=== PATIENT | male | born 1955 | race Caucasian/White ===

== ENCOUNTER 2019-09-16 20:45 | Inpatient (IN) | payer MEDICARE, BC ==
[2019-09-16] MEDS ORDERED: HYDROmorphone 0.5 MG/0.5 ML Syringe IVPUSH ONE (21:02)
[2019-09-16] MEDS ORDERED: Ondansetron 4 MG/2 ML SDV IVPUSH ONE (21:02)
--- NOTE | 2019-09-16 21:05 | EDM.PDOC ---
ED HPI GENERAL MEDICAL PROBLEM - General Chief Complaint: Chest Pain Stated Complaint: [facility] Time Seen by Provider: 09/16/19 21:02 Source of Information: Reports: Patient History Limitations: Reports: Other (. Impaired speech due to Parkinson's disease.) - History of Present Illness INITIAL COMMENTS - FREE TEXT/NARRATIVE: 64-year-old male presents to the ED after tripping and falling at home. Patient has Parkinson's disease and usually wears braces on both of his lower extremities to prevent falls but he was not wearing them this evening. He states he got tripped up and fell landing on a hard wooden chair injuring his left flank and lower ribs. A walker but did not have his leg braces on. Injury occurred about 2 hours ago. He states he did go all the way to the floor but was able to get himself up with time. Currently pain is 9 out of 10. He did summon the ambulance which came and picked him up and brought him to the hospital. Patient denies hitting his head. He has chronic cervical neck pain. Is not feels neck pain is any worse than normal. He also appreciates some left upper quadrant abdominal pain. Splinting respirations and shortness of breath. 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 CODE STATUS is listed as DO NOT RESUSCITATE. Onset: Today, Sudden Onset Date: 09/16/19 Onset Time: 19:00 Duration: Hour(s): (All about 2 hours ago.), Getting Worse Location: Reports: Chest (Pain left flank lower chest wall.), Abdomen (Left upper quadrant of the abdomen hurting as well.), Back (Injury to the posterior lateral thorax along 11th and 12th ribs and left flank.). Denies: Upper Extremity, Left, Upper Extremity, Right, Lower Extremity, Left, Lower Extremity, Right Quality: Reports: Ache, Sharp, Stabbing Severity: Severe (Out of 10.) Improves with: Reports: None Worsens with: Reports: Movement (But deep breathing makes it worse.) Context: Reports: Trauma (Fall at home injuring left flank lower ribs on a wooden chair from the fall). Denies: Activity, Exercise, Lifting, Sick Contact Associated Symptoms: Reports: Chest Pain, Malaise, Shortness of Breath. Denies: Confusion, Cough (Posterior lateral chest pain), cough w sputum, Diaphoresis, Fever/Chills, Headaches, Loss of Appetite, Nausea/Vomiting, Rash (Neck), Seizure, Syncope Treatments BED LASTER: Reports: Other (see below) (None.) Left Chest Pain Score (Numeric/FACES): 8 - Related Data Allergies Allergy/AdvReac Type Severity Reaction Status Date / Time No Known Allergies Allergy Verified 09/16/19 21:42 Home Meds: Home Meds Acetaminophen [Tylenol Arthritis Pain] 650 mg PO Q6H PRN 09/16/19 [History] Baclofen 10 mg PO QID 09/16/19 [History] Carbidopa/Levodopa [Carbidopa-Levodopa 25-100 Tab] 1 each PO QID 09/16/19 [History] Celecoxib [CeleBREX] 200 mg PO DAILY 09/16/19 [History] Cyclobenzaprine [Flexeril] 5 mg PO TID 09/16/19 [History] Diclofenac Sodium [Voltaren 1% Gel] 2 gm TOP QID 09/16/19 [History] Docusate Sodium/Sennosides [Senna Plus] 1 each PO TID PRN 09/16/19 [History] Escitalopram Oxalate [Lexapro] 20 mg PO BEDTIME 09/16/19 [History] Gabapentin [Neurontin] 200 mg PO TID 09/16/19 [History] HYDROmorphone [Dilaudid] 2 mg PO Q6H PRN 09/16/19 [History] HYDROmorphone [Dilaudid] 2 mg PO TID 09/16/19 [History] LORazepam [Ativan] 0.5 mg PO 1200,1600 09/16/19 [History] LORazepam [Ativan] 0.5 mg PO Q6H PRN 09/16/19 [History] LORazepam [Ativan] 1 mg PO 0800,199909/16/19 [History] Losartan [Cozaar] 50 mg PO DAILY 09/16/19 [History] Magnesium Oxide [Magnesium] 400 mg PO BID 09/16/19 [History] Simvastatin 20 mg PO BEDTIME 09/16/19 [History] Terazosin [Hytrin] 5 mg PO BID 09/16/19 [History] busPIRone HCl [Buspirone HCl] 7.5 mg PO BID 09/16/19 [History] fentaNYL [Duragesic] 75 mcg TD Q72H 09/16/19 [History] traZODone HCl [Trazodone HCl] 100 mg PO BEDTIME 09/16/19 [History] Past Medical History Cardiovascular History: Reports: High Cholesterol, Hypertension Respiratory History: Reports: Other (See Below) (Up apnea syndrome not on CPAP) Gastrointestinal History: Reports: GERD, Hiatal Hernia, Other (See Below) (Dysphagia. 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 previous cervical fusion . Radiculaopathy Lt upepr extremity.), Other (See Below) ( marked difficulty walking. Wears braces to both lower extremities.) Neurological History: Reports: Parkinson's (Parkinson's disease. He has severe flexion contracture of his left upper extremity he hand and wrist. Diagnosis is prgressive supranuclear opthaloplegia with Parkinson`s as a secondary diso rder. He has associated corticobasilar degeneration. Dystonia. Spasticity Lt upper extremity and legs.), Speech Problems ( with dysphagia. restless leg syndrome.), Other (See Below) Psychiatric History: Reports: Anxiety ( severe generalized anxiety disorder.), Other (See Below) (dysphagia. chronic insomnia.) - Past Surgical History Musculoskeletal Surgical History: Reports: Other (See Below) (Cervical spine fusion. Chronic radiculopathy left upper extremity) - History Comment History Comment: Patient has chronic severe generalized pain. He is currently on Dilaudid 2 mg 3 times daily and fentanyl patch. 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 Social & Family History - Living Situation & Occupation Living situation: Reports: Single, Alone Occupation: Disabled Social History Comment: Currently he just was admitted to [facility] today. It is unclear where he came from. They have no significant history on him other than what was provided. ED ROS GENERAL - Review of Systems Review Of Systems: See Below Constitutional: Reports: Malaise, Weakness (Chronic and severe.), Fatigue. Denies: Fever, Chills, Decreased Appetite HEENT: Reports: Glasses Respiratory: Reports: Shortness of Breath. Denies: Wheezing, Pleuritic Chest Pain, Cough, Sputum Cardiovascular: Reports: Chest Pain (Post injury today injury to the left posterior lateral chest wall). Denies: Claudication, Dyspnea on Exertion, Edema, Lightheadedness, Orthopnea Endocrine: Reports: No Symptoms GI/Abdominal: Reports: Abdominal Pain (He is aware of left upper quadrant abdominal pain flank pain since fall.), Constipation, Other (Known hiatal hernia.). Denies: Decreased Appetite, Distension, Flatus, Hematemesis, Hematochezia : Reports: Frequency, Other (Teary at x2 sometimes 3.) Musculoskeletal: Reports: Neck Pain, Shoulder Pain (Hand pain older pain from today's fall.), Back Pain (Chronic cervical neck pain), Hand Pain, Other (Walks with the aid of a walker.) Skin: Reports: Bruising (Onset bruising) Neurological: Reports: Difficulty Walking (Difficulty walking. Usually wears bilateral lower extremity braces which he is usually able to place himself.) Psychiatric: Reports: No Symptoms Hematologic/Lymphatic: Reports: No Symptoms Immunologic: Reports: No Symptoms ED EXAM, GENERAL - Physical Exam Exam: See Below Exam Limited By: No Limitations General Appearance: Alert, WD/WN, Moderate Distress, Other (Peers to be in a good deal of pain. Temperature is 36.6. Heart rate was 75 respiratory is 17-20 with sats of 93% on room air. He was 130/77.) Eye Exam: Bilateral Eye: Normal Inspection, Periorbital Changes Nose: Normal Inspection Throat/Mouth: Other Head: Atraumatic (Tongue and mouth are mildly dry.), Normocephalic, Other (No overt sign of head or facial trauma.) Neck: Normal Inspection, Limited Range of Motion (Patient has loss of 10 degrees lateral flexion as well as), Tender Lateral (There are bilateral cervical spine with no step-off deformities in the midline.), Other (No obvious injuries to the cervical spine. Patient states his pain is chronic in his neck from arthritis.). No: Lymphadenopathy (L) ( 5 degrees extension 5 degrees flexion.), Lymphadenopathy (R) Respiratory/Chest: Lungs Clear, Respiratory Distress (Mild tachypnea at rest), Splinting (Ending respirations.), Other (Patient has a linear bruise along the posterior lateral left ribs along primarily the 12th rib and portions of the 11th rib. This area is very tender to touch. Subcutaneous emphysema but hematoma is palpable. Patient has a hematoma on his right mid back measuring approximately 7 cm in diameter that he was not aware of. Peers to be of new onset.) Cardiovascular: Normal Peripheral Pulses, Regular Rate, Rhythm, No Edema, No Gallop, No Murmur, No Rub Peripheral Pulses: 2+: Posterior Tibial (L), Posterior Tibial (R), Dorsalis Pedis (L), Dorsalis Pedis (R), 3+: Carotid (L), Carotid (R) GI/Abdominal: Distended (Diffusely tympanitic to percussion.), Guarding, Tender (Tender to touch left upper quadrant of the abdomen.), Abnormal Bowel Sounds (Sounds are decreased in frequency.). No: Normal Bowel Sounds, Soft, Non- Tender, Rigid, Rebound (Upper quadrant of the abdomen) Back Exam: CVA Tenderness (L) (Marked left CVA tenderness), CVA Tenderness (R) (mild.), Other (He has a fentanyl patch left upper back.) Extremities: Other (She has flexion contracture of his left hand and wrist. This is chronic. No obvious injuries to his elbow or shoulder humerus. He reports some tenderness on palpation of his shoulder but clinically no fracture is evident. Collar bones are intact. No apparent injuries to his lower extremities appreciated. He has very limited internal and external rotation of both hips.) Neurological: Alert, Oriented, CN II-XII Intact, Normal Cognition Psychiatric: Normal Affect, Normal Mood, Other Skin Exam: Warm (And is a good deal of pain.), Dry, Intact, Normal Color, No Rash Course - Vital Signs Last Recorded V/S: Last Vital Signs Temp 36.6 C 09/16/19 20:50 Pulse 75 09/16/19 20:50 Resp 17 09/16/19 20:50 BP 130/77 09/16/19 20:50 Pulse Ox 93 L 09/16/19 20:50 - Orders/Labs/Meds Orders: Active Orders 24 hr Category Date Time Status Oxygen Therapy [RC] ASDIRECTED Care 09/16/19 22:48 Active Chest Abdomen Pelvis w Cont [CT] Stat Exams 09/16/19 21:03 Taken PATIENT RETYPE [BBK] Routine Lab 09/16/19 21:10 Received Dextrose 5%-0.9% NaCl [Dextrose 5%-Normal Saline] 1,000 Med 09/16/19 21:15 Active ml IV ASDIRECTED Medication Orders Dextrose/Sodium Chloride (Dextrose 5%-Normal Saline) 1,000 mls @ 150 mls/hr IV ASDIRECTED JASPER Last Admin: 09/16/19 21:19 Dose: 150 mls/hr Documented by: ALYSE Labs: Laboratory Tests 09/16/19 09/16/19 09/16/19 Range/Units 17:00 21:10 21:10 WBC 13.18 H (4.23-9.07) K/mm3 RBC 4.75 (4.63-6.08) M/mm3 Hgb 13.9 (13.7-17.5) gm/dl Hct 42.0 (40.1-51.0) % MCV 88.4 (79.0-92.2) fl MCH 29.3 (25.7-32.2) pg MCHC 33.1 (32.2-35.5) g/dl RDW Std Deviation 39.7 (35.1-43.9) fL Plt Count 166 (163-337) K/mm3 MPV 11.1 (9.4-12.3) fl Neut % (Auto) 89.0 H (34.0-67.9) % Lymph % (Auto) 5.5 L (21.8-53.1) % [place] % (Auto) 4.9 L (5.3-12.2) % Eos % (Auto) 0.1 L (0.8-7.0) Baso % (Auto) 0.2 (0.1-1.2) % Neut # (Auto) 11.72 H (1.78-5.38) K/mm3 Lymph # (Auto) 0.73 L (1.32-3.57) K/mm3 [place] # (Auto) 0.65 (0.30-0.82) K/mm3 Eos # (Auto) 0.01 L (0.04-0.54) K/mm3 Baso # (Auto) 0.03 (0.01-0.08) K/mm3 Manual Slide Review Abnormal smear Sodium 138 (136-145) mEq/L Potassium 3.7 (3.5-5.1) mEq/L Chloride 101 (98-107) mEq/L Carbon Dioxide 27 (21-32) mEq/L Anion Gap 13.7 (5-15) BUN 20 H (7-18) mg/dL Creatinine 0.8 (0.7-1.3) mg/dL Est Cr Clr Drug Dosing TNP Estimated GFR (MDRD) > 60 (>60) mL/min BUN/Creatinine Ratio 25.0 H (14-18) Glucose 117 H (80-115) mg/dL Calcium 9.0 (8.5-10.1) mg/dL Total Bilirubin 0.8 (0.2-1.0) mg/dL AST 27 (15-37) U/L ALT 7 L (16-63) U/L Alkaline Phosphatase 59 (46-116) U/L Total Protein 7.3 (6.4-8.2) g/dl Albumin 3.9 (3.4-5.0) g/dl Globulin 3.4 gm/dL Albumin/Globulin Ratio 1.2 (1-2) Lipase 102 (73-393) U/L Prostate Specific Ag (0.1-4.0) ng/mL COVID-19 ([facility]) (NEGATIVE) Blood Type Gel Antibody Screen 09/16/19 09/16/19 09/16/19 Range/Units 21:10 21:10 22:55 WBC (4.23-9.07) K/mm3 RBC (4.63-6.08) M/mm3 Hgb (13.7-17.5) gm/dl Hct (40.1-51.0) % MCV (79.0-92.2) fl MCH (25.7-32.2) pg MCHC (32.2-35.5) g/dl RDW Std Deviation (35.1-43.9) fL Plt Count (163-337) K/mm3 MPV (9.4-12.3) fl Neut % (Auto) (34.0-67.9) % Lymph % (Auto) (21.8-53.1) % [place] % (Auto) (5.3-12.2) % Eos % (Auto) (0.8-7.0) Baso % (Auto) (0.1-1.2) % Neut # (Auto) (1.78-5.38) K/mm3 Lymph # (Auto) (1.32-3.57) K/mm3 [place] # (Auto) (0.30-0.82) K/mm3 Eos # (Auto) (0.04-0.54) K/mm3 Baso # (Auto) (0.01-0.08) K/mm3 Manual Slide Review Sodium (136-145) mEq/L Potassium (3.5-5.1) mEq/L Chloride (98-107) mEq/L Carbon Dioxide (21-32) mEq/L Anion Gap (5-15) BUN (7-18) mg/dL Creatinine (0.7-1.3) mg/dL Est Cr Clr Drug Dosing Estimated GFR (MDRD) (>60) mL/min BUN/Creatinine Ratio (14-18) Glucose (80-115) mg/dL Calcium (8.5-10.1) mg/dL Total Bilirubin (0.2-1.0) mg/dL AST (15-37) U/L ALT (16-63) U/L Alkaline Phosphatase (46-116) U/L Total Protein (6.4-8.2) g/dl Albumin (3.4-5.0) g/dl Globulin gm/dL Albumin/Globulin Ratio (1-2) Lipase (73-393) U/L Prostate Specific Ag 12.4 H (0.1-4.0) ng/mL COVID-19 ([facility]) Negative (NEGATIVE) Blood Type O POSITIVE Gel Antibody Screen Negative Meds: Medications Generic Name Dose Route Start Last Admin Trade Name Freq PRN Reason Stop Dose Admin Dextrose/Sodium Chloride 1,000 mls @ 150 mls/hr 09/16/19 21:15 09/16/19 21:19 Dextrose 5%-Normal Saline IV 150 mls/hr ASDIRECTED JASPER Administration Discontinued Medications Generic Name Dose Route Start Last Admin Trade Name Freq PRN Reason Stop Dose Admin Hydromorphone HCl 0.5 mg 09/16/19 21:02 09/16/19 21:19 Dilaudid IVPUSH 09/16/19 21:03 0.5 mg ONETIME ONE Administration Ondansetron HCl 4 mg 09/16/19 21:02 09/16/19 21:14 Zofran IVPUSH 09/16/19 21:03 4 mg ONETIME ONE Administration - Radiology Interpretation Free Text/Narrative:: 64-year-old male brought to the ED by [place] [facility] after a fall at his home. He lives alone. He has Parkinson's disease and usually wears braces on both of his lower extremities to help his gait. He was walking without them tonight at home with the aid of his walker and got tripped up and fell. He believes he landed on a wooden chair striking him hard in the left posterior lateral back injuring 11th and 12th ribs clinically with a linear hematoma in this area. He has a 7 cm circular hematoma right mid back as well. Patient has decreased bowel sounds in the abdomen and is guarding on palpation of the left upper quadrant of the abdomen. This is concerning for possible injury to underlying kidney and/or spleen. He fell approximately 2 hours prior to coming to the ED. He reports he did get up on his own volition and called the ambulance. Plan. D5 normal saline 150 mils per hour. Routine labs including a type and screen. Serum lipase as well. Urinalysis if 1 can be provided. He will need imaging with CT of his chest abdomen pelvis with IV contrast. Be done to rule out acute abdominal injury from fall by blunt force trauma. Also possible that he is fractured 11th or 12th rib left posterior lateral chest. - Re-Assessments/Exams Free Text/Narrative Re-Assessment/Exam: 09/16/19 21:49 CT of the chest abdomen pelvis has been completed with IV contrast only. CT of the chest reveals mild cardiomegaly. He has a small hemothorax vs atelectasis left lung base.No pneumothorax. He has fractures of Lt ribs posteriorly from the 7th to the 11th ribs. The 10th and 11th ribs are flail segments with fractures posteriorly and laterally. The Lt 7th and 8th ribs show significant displacement. no fractures identified on the right posterior thorax. CT of the abdomen reveals liver to be within normal limits. Gallbladder may have a little bit of sludge in the fundus of the gallbladder but no obvious stones. Pancreas appears normal. Stomach is normal. Spleen reveals an abnormality mid -lateral spleen compatable with a spleenic contusion--grade 1. . No injuries to the kidneys identified. Adrenal glands appear to be normal. Small and large bowel do not show any obvious abnormalities. Prostate is markedly enlarged with numerous surgical clips. It has the consistency of tumor. Bladder is distended. Fractures identified in the pelvis. 09/16/19 21:52 White count is elevated at 13.18. He has a left shift of 89% neutrophils. This is on the auto differential. Hemoglobin is 13.9 with hematocrit of 42.0. Platelet count 166,000. The smear shows a normal right RBC morphology. Platelets are normal and adequate. White blood cell count reveals neutrophilia, lymphopenia no bands appreciated. 09/16/19 22:45 [address] have spoken with Dr Beltre --concrete craftsman surgeon and he will admit the patient to the ICU. Patient is code status DNR. Chemistry reveals a sodium of 138 potassium of 3.7. Chloride is 101 with a bicarb of 27. Anion gap is 13.7. BUN is 20 with a creatinine of 0.8. GFR remains greater than 60. BUN/creatinine ratio is elevated at 25.0 suggesting mild volume depletion. Glucose 117. Calcium is 9.0. Liver function is normal. Total protein 7.3 albumin fraction is 3.9. Lipase is pending. PSA is markedly elevated at 12.4. Has no complaints at this time. CT does reveal that his bladder is fairly full and I see on his notes from history of present illness that he has a history of urinary retention. If he does not void within the next 4 to 6 hours he may require Morris catheterization. I have written bridge orders for him to be admitted to the intensive care unit. His records indicated that his CODE STATUS is DO NOT RESUSCITATE. Apparently he just [facility] to day and therefore they have ethanol operator with him or his multiple medications. He is injuries place him at very high risk of succumbing to his injuries simply because of neuromuscular disease. 09/16/19 23:34: Serum Lipase is 102. Covid 19 negative. Departure - Departure Time of Disposition: 23:45 Disposition: Admitted As Inpatient 68 Reason for Transfer *Q: Other Condition: Serious Clinical Impression: Progressive supranuclear ophthalmoplegia Ribs, multiple fractures Qualifiers: Encounter type: initial encounter Fracture type: closed Laterality: left Qualified Code(s): S22.42XA - Multiple fractures of ribs, left side, initial encounter for closed fracture Fall as cause of accidental injury at home as place of occurrence Qualifiers: Encounter type: initial encounter Qualified Code(s): W19.XXXA - Unspecified fall, initial encounter; Y92.009 - Unspecified place in unspecified non- institutional (private) residence as the place of occurrence of the external cause Sepsis Event Note (ED) - Evaluation Sepsis Screening Result: No Definite Risk - Focused Exam Vital Signs: Vital Signs Temp Pulse Resp BP Pulse Ox 09/16/19 20:50 36.6 C 75 17 130/77 93 L - My Orders Last 24 Hours: My Active Orders 09/16/19 21:03 Chest Abdomen Pelvis w Cont [CT] Stat 09/16/19 21:10 PATIENT RETYPE [BBK] Routine 09/16/19 21:15 Dextrose 5%-0.9% NaCl [Dextrose 5%-Normal Saline] 1,000 ml IV ASDIRECTED 09/16/19 22:48 Oxygen Therapy [RC] ASDIRECTED - Assessment/Plan Last 24 Hours: My Active Orders 09/16/19 21:03 Chest Abdomen Pelvis w Cont [CT] Stat 09/16/19 21:10 PATIENT RETYPE [BBK] Routine 09/16/19 21:15 Dextrose 5%-0.9% NaCl [Dextrose 5%-Normal Saline] 1,000 ml IV ASDIRECTED 09/16/19 22:48 Oxygen Therapy [RC] ASDIRECTED
[2019-09-16] MEDS ORDERED: Dextrose 5%-0.9% NaCl 1,000 ML IV SCH (21:15)
[2019-09-17] MEDS ORDERED: Albuterol 0.083% 2.5 MG/3 ML Neb Soln NEB PRN (00:17)
[2019-09-17] MEDS ORDERED: Ondansetron 4 MG Tab.DIS PO PRN (00:17)
--- NOTE | 2019-09-17 00:27 | PCM.HP.2 ---
H&P History of Present Illness - General Date of Service: 09/17/19 Admit Problem/Dx: Admission Diagnosis/Problem Admission Diagnosis/Problem Rib injury Source of Information: Patient, Provider History Limitations: Reports: Other (pain) - History of Present Illness Initial Comments - Free Text/Narative: patient has severe parkinson's disease and lives at an assisted living. He was walking tonight and fell onto a wooden chair on his left side and immediately had pain on that side. Usually walks with braced in BLE but did not have them on tonight per ED note. Patient did not fall all the way down nor did he hit his head. he was brought into the ED for evaluation. He has a significant history of chronic back pain and is on fentanyl patch, dilaudid, neurontin, baclofen etc. He has numerous other medications for Parkinsons disease. Onset of Symptoms: Reports: Today Duration of Symptoms: Reports: Hour(s):, Constant Location: Reports: Back, Other (left flank) Quality: Reports: Sharp Severity: Severe Improves with: Reports: Immobilization Worsens with: Reports: Breathing, Movement Left Chest Pain Score (Numeric/FACES): 8 - Related Data Allergies/Adverse Reactions: Allergies Allergy/AdvReac Type Severity Reaction Status Date / Time No Known Allergies Allergy Verified 09/16/19 21:42 Home Medications: Home Meds Acetaminophen [Tylenol Arthritis Pain] 650 mg PO Q6H PRN 09/16/19 [History] Baclofen 10 mg PO QID 09/16/19 [History] Carbidopa/Levodopa [Carbidopa-Levodopa 25-100 Tab] 1 each PO QID 09/16/19 [History] Celecoxib [CeleBREX] 200 mg PO DAILY 09/16/19 [History] Cyclobenzaprine [Flexeril] 5 mg PO TID 09/16/19 [History] Diclofenac Sodium [Voltaren 1% Gel] 2 gm TOP QID 09/16/19 [History] Docusate Sodium/Sennosides [Senna Plus] 1 each PO TID PRN 09/16/19 [History] Escitalopram Oxalate [Lexapro] 20 mg PO BEDTIME 09/16/19 [History] Gabapentin [Neurontin] 200 mg PO TID 09/16/19 [History] HYDROmorphone [Dilaudid] 2 mg PO Q6H PRN 09/16/19 [History] HYDROmorphone [Dilaudid] 2 mg PO TID 09/16/19 [History] LORazepam [Ativan] 0.5 mg PO 1200,1600 09/16/19 [History] LORazepam [Ativan] 0.5 mg PO Q6H PRN 09/16/19 [History] LORazepam [Ativan] 1 mg PO 0800,2000 09/16/19 [History] Losartan [Cozaar] 50 mg PO DAILY 09/16/19 [History] Magnesium Oxide [Magnesium] 400 mg PO BID 09/16/19 [History] Simvastatin 20 mg PO BEDTIME 09/16/19 [History] Terazosin [Hytrin] 5 mg PO BID 09/16/19 [History] busPIRone HCl [Buspirone HCl] 7.5 mg PO BID 09/16/19 [History] fentaNYL [Duragesic] 75 mcg TD Q72H 09/16/19 [History] traZODone HCl [Trazodone HCl] 100 mg PO BEDTIME 09/16/19 [History] Past Medical History HEENT History: Reports: Impaired Vision Other HEENT History: Wears glasses Cardiovascular History: Reports: High Cholesterol, Hypertension Respiratory History: Reports: Other (See Below) (Up apnea syndrome not on CPAP) Gastrointestinal History: Reports: GERD, Hiatal Hernia, Other (See Below) (Dysphagia. 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 previous cervical fusion . Radiculaopathy Lt upepr extremity.), Other (See Below) ( marked difficulty walking. Wears braces to both lower extre mities.) Neurological History: Reports: Parkinson's (Parkinson's disease. He has severe flexion contracture of his left upper extremity he hand and wrist. 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 Spasticity Lt upper extremity and legs.), Speech Problems ( with dysphagia. restless leg syndrome.), Other (See Below) Psychiatric History: Reports: Anxiety ( severe generalized anxiety disorder.), Other (See Below) (dysphagia. chronic insomnia.) - Past Surgical History Musculoskeletal Surgical History: Reports: Other (See Below) (Cervical spine fusion. Chronic radiculopathy left upper extremity) - History Comment History Comment: Patient has chronic severe generalized pain. He is currently on Dilaudid 2 mg 3 times daily and fentanyl patch. 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 Social & Family History - Tobacco Use Smoking Status *Q: Unknown Ever Smoked - Living Situation & Occupation Living situation: Reports: Single, Alone Occupation: Disabled H&P Review of Systems - Review of Systems: Review Of Systems: See Below General: Reports: No Symptoms HEENT: Reports: No Symptoms Pulmonary: Reports: No Symptoms Cardiovascular: Reports: No Symptoms Gastrointestinal: Reports: No Symptoms Genitourinary: Reports: No Symptoms Musculoskeletal: Reports: Back Pain, Muscle Stiffness Skin: Reports: Bruising (left lower back, right mid back (old)) Psychiatric: Reports: Anxiety Neurological: Reports: Difficulty Walking, Gait Disturbance Exam - Exam Exam: See Below - Vital Signs Vital Signs: Last Vital Signs Temp 98.4 F 09/16/19 23:40 Pulse 75 09/16/19 20:50 Resp 17 09/16/19 23:40 BP 143/88 H 09/16/19 23:40 Pulse Ox 94 L 09/17/19 00:10 Weight: 80.104 kg - Exam Quality Assessment: Supplemental Oxygen General: Alert, Oriented, Cooperative, Severe Distress Neck: Other (stiff due to parkinsons but no pain) Lungs: Clear to Auscultation, Other (chest wall tender to palpation on the left side, mild bruising on the left lower back) Cardiovascular: Regular Rate, Regular Rhythm, Normal S1, Normal S2 GI/Abdominal Exam: Soft, Non-Tender, No Organomegaly, No Distention (Male) Exam: No Hernia, Normal Inspection Back Exam: Normal Inspection Extremities: Normal Inspection Skin: Warm, Dry, Intact - Patient Data Lab Results Last 24 hrs: Laboratory Results - last 24 hr 09/16/19 09/16/19 09/16/19 Range/Units 17:00 21:10 21:10 WBC 13.18 H (4.23-9.07) K/mm3 RBC 4.75 (4.63-6.08) M/mm3 Hgb 13.9 (13.7-17.5) gm/dl Hct 42.0 (40.1-51.0) % MCV 88.4 (79.0-92.2) fl MCH 29.3 (25.7-32.2) pg MCHC 33.1 (32.2-35.5) g/dl RDW Std Deviation 39.7 (35.1-43.9) fL Plt Count 166 (163-337) K/mm3 MPV 11.1 (9.4-12.3) fl Neut % (Auto) 89.0 H (34.0-67.9) % Lymph % (Auto) 5.5 L (21.8-53.1) % [place] % (Auto) 4.9 L (5.3-12.2) % Eos % (Auto) 0.1 L (0.8-7.0) Baso % (Auto) 0.2 (0.1-1.2) % Neut # (Auto) 11.72 H (1.78-5.38) K/mm3 Lymph # (Auto) 0.73 L (1.32-3.57) K/mm3 [place] # (Auto) 0.65 (0.30-0.82) K/mm3 Eos # (Auto) 0.01 L (0.04-0.54) K/mm3 Baso # (Auto) 0.03 (0.01-0.08) K/mm3 Manual Slide Review Abnormal smear Sodium 138 (136-145) mEq/L Potassium 3.7 (3.5-5.1) mEq/L Chloride 101 (98-107) mEq/L Carbon Dioxide 27 (21-32) mEq/L Anion Gap 13.7 (5-15) BUN 20 H (7-18) mg/dL Creatinine 0.8 (0.7-1.3) mg/dL Est Cr Clr Drug Dosing TNP Estimated GFR (MDRD) > 60 (>60) mL/min BUN/Creatinine Ratio 25.0 H (14-18) Glucose 117 H (80-115) mg/dL Calcium 9.0 (8.5-10.1) mg/dL Total Bilirubin 0.8 (0.2-1.0) mg/dL AST 27 (15-37) U/L ALT 7 L (16-63) U/L Alkaline Phosphatase 59 (46-116) U/L Total Protein 7.3 (6.4-8.2) g/dl Albumin 3.9 (3.4-5.0) g/dl Globulin 3.4 gm/dL Albumin/Globulin Ratio 1.2 (1-2) Lipase 102 (73-393) U/L Prostate Specific Ag (0.1-4.0) ng/mL COVID-19 ([facility]) (NEGATIVE) Blood Type Gel Antibody Screen 09/16/19 09/16/19 09/16/19 Range/Units 21:10 21:10 22:55 WBC (4.23-9.07) K/mm3 RBC (4.63-6.08) M/mm3 Hgb (13.7-17.5) gm/dl Hct (40.1-51.0) % MCV (79.0-92.2) fl MCH (25.7-32.2) pg MCHC (32.2-35.5) g/dl RDW Std Deviation (35.1-43.9) fL Plt Count (163-337) K/mm3 MPV (9.4-12.3) fl Neut % (Auto) (34.0-67.9) % Lymph % (Auto) (21.8-53.1) % [place] % (Auto) (5.3-12.2) % Eos % (Auto) (0.8-7.0) Baso % (Auto) (0.1-1.2) % Neut # (Auto) (1.78-5.38) K/mm3 Lymph # (Auto) (1.32-3.57) K/mm3 [place] # (Auto) (0.30-0.82) K/mm3 Eos # (Auto) (0.04-0.54) K/mm3 Baso # (Auto) (0.01-0.08) K/mm3 Manual Slide Review Sodium (136-145) mEq/L Potassium (3.5-5.1) mEq/L Chloride (98-107) mEq/L Carbon Dioxide (21-32) mEq/L Anion Gap (5-15) BUN (7-18) mg/dL Creatinine (0.7-1.3) mg/dL Est Cr Clr Drug Dosing Estimated GFR (MDRD) (>60) mL/min BUN/Creatinine Ratio (14-18) Glucose (80-115) mg/dL Calcium (8.5-10.1) mg/dL Total Bilirubin (0.2-1.0) mg/dL AST (15-37) U/L ALT (16-63) U/L Alkaline Phosphatase (46-116) U/L Total Protein (6.4-8.2) g/dl Albumin (3.4-5.0) g/dl Globulin gm/dL Albumin/Globulin Ratio (1-2) Lipase (73-393) U/L Prostate Specific Ag 12.4 H (0.1-4.0) ng/mL COVID-19 ([facility]) Negative (NEGATIVE) Blood Type O POSITIVE Gel Antibody Screen Negative Result Diagrams: 09/16/19 21:10 09/16/19 21:10 Sepsis Event Note - Evaluation Sepsis Screening Result: No Definite Risk - Focused Exam Vital Signs: Vital Signs Temp Pulse Resp BP Pulse Ox Pulse Ox 09/17/19 00:10 94 L 09/16/19 23:40 98.4 F 17 143/88 H 93 L 09/16/19 20:50 97.9 F 75 17 130/77 93 L Date Exam was Performed: 09/17/19 Time Exam was Performed: 00:22 Problem List Initiated/Reviewed/Updated: No Orders Last 24hrs: Active Orders 24 hr Category Date Time Status Patient Status [ADT] Routine ADT 09/16/19 23:15 Active Patient Status [ADT] Routine ADT 09/17/19 00:17 Ordered Cardiac Monitoring [RC] CONTINUOUS Care 09/17/19 00:17 Ordered Intake and Output [RC] QSHIFT Care 09/17/19 00:17 Ordered Notify Provider Vital Signs [RC] ASDIRECTED Care 09/17/19 00:17 Ordered Oxygen Therapy [RC] ASDIRECTED Care 09/16/19 22:48 Active Oxygen Therapy [RC] PRN Care 09/17/19 00:17 Ordered Pulse Oximetry [RC] CONTINUOUS Care 09/17/19 00:17 Ordered RT Aerosol Therapy [RC] ASDIRECTED Care 09/17/19 00:17 Ordered Up With Assistance [RC] ASDIRECTED Care 09/17/19 00:17 Ordered VTE/DVT Education [RC] PER UNIT ROUTINE Care 09/17/19 00:17 Ordered Vital Signs [RC] Q1H Care 09/17/19 00:17 Ordered Respiratory Care Assess and Treatment [CONS] Routine Cons 09/17/19 00:17 Order ed Clear Liquid Diet [DIET] Diet 09/17/19 Dinner Ordered Chest 1V Frontal [CR] Routine Exams 09/17/19 07:00 Ordered Chest Abdomen Pelvis w Cont [CT] Stat Exams 09/16/19 21:03 Taken CBC WITH AUTO DIFF [HEME] AM Lab 09/17/19 05:11 Ordered CBC WITH AUTO DIFF [HEME] AM Lab 09/18/19 05:11 Ordered CBC WITH AUTO DIFF [HEME] AM Lab 09/19/19 05:11 Ordered COMPREHENSIVE METABOLIC PN,CMP [CHEM] AM Lab 09/17/19 05:11 Ordered COMPREHENSIVE METABOLIC PN,CMP [CHEM] AM Lab 09/18/19 05:11 Ordered COMPREHENSIVE METABOLIC PN,CMP [CHEM] AM Lab 09/19/19 05:11 Ordered MAGNESIUM [CHEM] AM Lab 09/17/19 05:11 Ordered MAGNESIUM [CHEM] AM Lab 09/18/19 05:11 Ordered MAGNESIUM [CHEM] AM Lab 09/19/19 05:11 Ordered PATIENT RETYPE [BBK] Routine Lab 09/16/19 21:10 Received PHOSPHORUS [CHEM] AM Lab 09/17/19 05:11 Ordered PHOSPHORUS [CHEM] AM Lab 09/18/19 05:11 Ordered PHOSPHORUS [CHEM] AM Lab 09/19/19 05:11 Ordered Albuterol [Proventil Neb Soln] Med 09/17/19 00:17 Ordered 2.5 mg NEB Q2H PRN Dextrose 5%-0.45% NaCl [Dextrose 5%-1/2 NS] 1,000 ml Med 09/17/19 00:17 Ordered IV ASDIRECTED HYDROmorphone [Dilaudid] Med 09/17/19 00:17 Ordered 1 mg IVPUSH Q2H PRN Heparin Sodium Med 09/17/19 00:17 Ordered 5,000 units SUBCUT Q8H Ondansetron [Zofran ODT] Med 09/17/19 00:17 Ordered 4 mg PO Q4H PRN Resuscitation Status Routine Resus Stat 09/17/19 00:21 Ordered Medication Orders Albuterol (Proventil Neb Soln) 2.5 mg NEB Q2H PRN PRN Reason: Shortness Of Breath/wheezing Heparin Sodium (Porcine) (Heparin Sodium) 5,000 units SUBCUT Q8H [facility] Hydromorphone HCl (Dilaudid) 1 mg IVPUSH Q2H PRN PRN Reason: Pain (severe 7-10) Dextrose/Sodium Chloride (Dextrose 5%-1/2 Ns) 1,000 mls @ 50 mls/hr IV ASDIRECTED [facility] Ondansetron HCl (Zofran Odt) 4 mg PO Q4H PRN PRN Reason: nausea, able to take PO Assessment/Plan Comment:: Patient fell today and sustained left sided rib fractures from 5-8. he need close monitoring, pain control and respiratory monitoring - Admit to ICU - restart home meds - add 1mg dilaudid q2h on top of home meds for acute pain. We will adjust this based on patient's symptoms - Tylenol 650 Q6H - Incentive spirometer Q1H when awake + iPAP - Sit upright several times during the day - Oxygen supplementation - HOB > 30 degrees - Ok to have clear liquid diet now - Chest Xray in the AM to check status of lungs
[2019-09-17] MEDS: Dextrose 5%-0.45% NaCl 1,000 ML IV SCH ×2 (00:38→19:56)
[2019-09-17] MEDS: Heparin Sodium 5,000 Units/ML Vial SUBCUT SCH ×4 (00:38→19:49)
[2019-09-17] MEDS: HYDROmorphone 0.5 MG/0.5 ML Syringe IVPUSH PRN ×7 (00:39→22:02)
--- NOTE | 2019-09-17 06:07 | CT ---
CT chest Technique: Multiple axial sections through the chest were obtained. Intravenous contrast was utilized. Comparison: No prior chest imaging. Findings: Thoracic aorta shows mild atherosclerotic calcification with no aneurysm. Mediastinum and hilar region show no adenopathy. Minimal coronary artery calcification is seen. Increased density within both posterior lung bases, worse on the left side. Findings most likely are due to atelectasis. 13 type ribs are noted with counting being started superiorly. Slightly displaced fracture is noted within the posterior 10th and 11th ribs. Nondisplaced fracture is noted posteriorly within the 9th rib. Displaced fracture by 1 rib with noted laterally within the 7th and 8th ribs. Moderately displaced fracture noted within the lateral 9th rib. Minimally displaced fracture noted within the posterolateral 10th rib. No additional rib fracture is appreciated. Endplate spurring noted within the spine. Sternum appears intact. Soft tissue air noted within the chest wall in area of rib fractures. Minimal amount of pleural fluid seen in area of rib fractures. Impression: 1. Fractures within the 9th and 10th rib and 2 locations. Posterior fracture noted within T11. Displaced fractures are noted within the 7th and 8th lateral ribs. 2. No pneumothorax is seen at this time. 3. Bibasilar atelectasis, worse on the left side. Minimal left-sided pleural effusion in area of rib fractures. 4. Small amount of soft tissue air noted within the left chest wall in the area of rib fractures. Diagnostic code #5 This report was dictated in MDT I agree with preliminary report from [facility], finalized on 09/16/19, 11:03 PM [place] Day[place] Time CT abdomen and pelvis Technique: Multiple axial sections were obtained from above the dome of the diaphragm inferiorly through the pubic symphysis. Intravenous contrast was utilized. No oral contrast has been given. Comparison: No prior abdominal imaging is available. Findings: Liver shows no focal abnormality. Spleen shows a low density lesion compatible with small intrasplenic hematoma compatible with grade 1 injury. Adrenal glands show no nodule. Gallbladder contains no calcified gallstones. Kidneys show symmetric contrast enhancement. Cyst is noted within the mid to upper right kidney measuring 1.0 cm. Aorta shows atherosclerotic change. Mild areas of ectasia are seen with no aneurysm. No pelvic mass or adenopathy is seen. Radiation implant seeds appear to be present within the prostate gland. No free fluid or inflammatory change is appreciated. Appendix is seen which is normal in size. Bone window settings were reviewed which shows scattered degenerative change within the spine. No acute osseous finding is appreciated within the visualized osseous structures. Impression: 1. Small intrasplenic hematoma. This is a grade 1 injury. 2. Other findings as noted above. No other acute abnormality is appreciated. Diagnostic code #3 This report was dictated in MDT I agree with preliminary report from [facility], finalized on 09/16/19, 11:03 PM Central Daylight Time
[2019-09-17] MEDS: LORazepam 1 MG Tab PO PRN ×2 (07:17→20:23)
[2019-09-17] MEDS: Gabapentin 100 MG Cap PO SCH ×3 (08:53→20:01)
[2019-09-17] MEDS: Terazosin 5 MG Cap PO SCH ×2 (08:53→20:01)
[2019-09-17] MEDS: Carbidopa/Levodopa 25-100 MG Tab PO SCH ×4 (08:54→20:01)
--- NOTE | 2019-09-17 10:57 | PCM.PREANE ---
Preanesthetic Assessment - Procedure Proposed Procedure: Continuous Thoracic Epidural - Anesthesia/Transfusion/Family Hx Anesthesia History: Prior Anesthesia Without Reaction Transfusion History: No Prior Transfusion(s) - Review of Systems General: Weakness, Fatigue Pulmonary: Shortness of Breath, Other (chest pain due to fractured ribs) Cardiovascular: No Symptoms Gastrointestinal: No Symptoms Neurological: Tremors (Parkinson disease), Other - Physical Assessment Vital Signs: Last Vital Signs Temp 97.8 F 09/17/19 04:00 Pulse 80 09/17/19 00:00 Resp 19 09/17/19 08:01 BP 118/67 09/17/19 08:53 Pulse Ox 97 09/17/19 08:01 Height: 1.83 m Weight: 80.467 kg ASA Class: 3 Mental Status: Alert & Oriented x3 Airway Class: Mallampati = 3 Dentition: Reports: Broken Tooth/Teeth, Missing Tooth/Teeth, Caries Thyro-Mental Finger Breadths: 3 Mouth Opening Finger Breadths: 3 ROM/Head Extension: Limited/Partial Lungs: Decreased Breath Sounds, Other (shallow respiartions) Cardiovascular: Regular Rate - Lab Values: Laboratory Last Values WBC 7.17 K/mm3 (4.23-9.07) 09/17/19 05:13 RBC 4.34 M/mm3 (4.63-6.08) L 09/17/19 05:13 Hgb 12.4 gm/dl (13.7-17.5) L D 09/17/19 05:13 Hct 39.2 % (40.1-51.0) L 09/17/19 05:13 MCV 90.3 fl (79.0-92.2) 09/17/19 05:13 MCH 28.6 pg (25.7-32.2) 09/17/19 05:13 MCHC 31.6 g/dl (32.2-35.5) L 09/17/19 05:13 RDW Std Deviation 40.4 fL (35.1-43.9) 09/17/19 05:13 Plt Count 163 K/mm3 (163-337) 09/17/19 05:13 MPV 11.6 fl (9.4-12.3) 09/17/19 05:13 Neut % (Auto) 75.3 % (34.0-67.9) H 09/17/19 05:13 Lymph % (Auto) 16.2 % (21.8-53.1) L 09/17/19 05:13 [place] % (Auto) 8.1 % (5.3-12.2) 09/17/19 05:13 Eos % (Auto) 0 (0.8-7.0) L 09/17/19 05:13 Baso % (Auto) 0.3 % (0.1-1.2) 09/17/19 05:13 Neut # (Auto) 5.40 K/mm3 (1.78-5.38) H 09/17/19 05:13 Lymph # (Auto) 1.16 K/mm3 (1.32-3.57) L 09/17/19 05:13 [place] # (Auto) 0.58 K/mm3 (0.30-0.82) 09/17/19 05:13 Eos # (Auto) 0.00 K/mm3 (0.04-0.54) L 09/17/19 05:13 Baso # (Auto) 0.02 K/mm3 (0.01-0.08) 09/17/19 05:13 Manual Slide Review Abnormal smear 09/16/19 21:10 Sodium 140 mEq/L (136-145) 09/17/19 05:13 Potassium 4.5 mEq/L (3.5-5.1) 09/17/19 05:13 Chloride 104 mEq/L (98-107) 09/17/19 05:13 Carbon Dioxide 30 mEq/L (21-32) 09/17/19 05:13 Anion Gap 10.5 (5-15) 09/17/19 05:13 BUN 19 mg/dL (7-18) H 09/17/19 05:13 Creatinine 0.8 mg/dL (0.7-1.3) 09/17/19 05:13 Est Cr Clr Drug Dosing 105.08 mL/min 09/17/19 05:13 Estimated GFR (MDRD) > 60 mL/min (>60) 09/17/19 05:13 BUN/Creatinine Ratio 23.8 (14-18) H 09/17/19 05:13 Glucose 103 mg/dL (80-115) 09/17/19 05:13 Calcium 8.4 mg/dL (8.5-10.1) L 09/17/19 05:13 Phosphorus 4.4 mg/dL (2.6-4.7) 09/17/19 05:13 Magnesium 1.9 mg/dl (1.8-2.4) 09/17/19 05:13 Total Bilirubin 0.9 mg/dL (0.2-1.0) 09/17/19 05:13 AST 21 U/L (15-37) 09/17/19 05:13 ALT 9 U/L (16-63) L 09/17/19 05:13 Alkaline Phosphatase 50 U/L (46-116) 09/17/19 05:13 Total Protein 6.4 g/dl (6.4-8.2) 09/17/19 05:13 Albumin 3.3 g/dl (3.4-5.0) L 09/17/19 05:13 Globulin 3.1 gm/dL 09/17/19 05:13 Albumin/Globulin Ratio 1.1 (1-2) 09/17/19 05:13 Lipase 102 U/L (73-393) 09/16/19 17:00 Prostate Specific Ag 12.4 ng/mL (0.1-4.0) H 09/16/19 21:10 Urine Color Yellow (Yellow) 09/17/19 03:30 Urine Appearance Clear (Clear) 09/17/19 03:30 Urine pH 5.5 (5.0-8.0) 09/17/19 03:30 Ur Specific [place] > or = 1.030 (1.005-1.030) 09/17/19 03:30 Urine Protein Trace (Negative) H 09/17/19 03:30 Urine Glucose (UA) Negative (Negative) 09/17/19 03:30 Urine Ketones 1+ (Negative) H 09/17/19 03:30 Urine Occult Blood 3+ (Negative) H 09/17/19 03:30 Urine Nitrite Positive (Negative) H 09/17/19 03:30 Urine Bilirubin Negative (Negative) 09/17/19 03:30 Urine Urobilinogen 0.2 (0.2-1.0) 09/17/19 03:30 Ur Leukocyte Esterase Trace (Negative) H 09/17/19 03:30 Urine RBC 10-20 /hpf (0-5) H 09/17/19 03:30 Urine WBC 5-10 /hpf (0-5) H 09/17/19 03:30 Urine WBC Clumps Rare /hpf (NOT SEEN) 09/17/19 03:30 Ur Squamous Epith Cells 0-5 /hpf (0-5) 09/17/19 03:30 Urine Bacteria Moderate /hpf (FEW) H 09/17/19 03:30 Urine Mucus Moderate /hpf (FEW) H 09/17/19 03:30 COVID-19 ([facility]) Negative (NEGATIVE) 09/16/19 22:55 Blood Type O POSITIVE 09/16/19 21:10 Gel Antibody Screen Negative 09/16/19 21:10 - Allergies Allergies/Adverse Reactions: Allergies Allergy/AdvReac Type Severity Reaction Status Date / Time No Known Allergies Allergy Verified 09/17/19 05:51 - Acknowledgements Anesthesia Type Planned: Epidural Pt an Appropriate Candidate for the Planned Anesthesia: Yes Alternatives and Risks of Anesthesia Discussed w Pt/Guardian: Yes Pt/Guardian Understands and Agrees with Anesthesia Plan: Yes PreAnesthesia Questionnaire HEENT History: Reports: Impaired Vision Other HEENT History: Wears glasses Cardiovascular History: Reports: High Cholesterol, Hypertension Respiratory History: Reports: Intubation, Previous Gastrointestinal History: Reports: GERD, Hiatal Hernia Genitourinary History: Reports: BPH, Retention, Urinary Musculoskeletal History: Reports: Arthritis, Neck Pain, Chronic, Osteoarthritis Neurological History: Reports: Parkinson's, Speech Problems, Vertigo Psychiatric History: Reports: Anxiety - Past Surgical History Cardiovascular Surgical History: Reports: None - History Comment History Comment: Patient has chronic severe generalized pain. He is currently on Dilaudid 2 mg 3 times daily and fentanyl patch. 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 - SUBSTANCE USE Smoking Status *Q: Unknown Ever Smoked Tobacco Use Within Last Twelve Months: No Second Hand Smoke Exposure: No Recreational Drug Use History: No - HOME MEDS Home Medications: Home Meds Acetaminophen [Tylenol Arthritis Pain] 650 mg PO Q6H PRN 09/16/19 [History] Baclofen 10 mg PO QID 09/16/19 [History] Carbidopa/Levodopa [Carbidopa-Levodopa 25-100 Tab] 1 each PO QID 09/16/19 [History] Celecoxib [CeleBREX] 200 mg PO DAILY 09/16/19 [History] Cyclobenzaprine [Flexeril] 5 mg PO TID 09/16/19 [History] Diclofenac Sodium [Voltaren 1% Gel] 2 gm TOP QID 09/16/19 [History] Docusate Sodium/Sennosides [Senna Plus] 1 each PO TID PRN 09/16/19 [History] Escitalopram Oxalate [Lexapro] 20 mg PO BEDTIME 09/16/19 [History] Gabapentin [Neurontin] 200 mg PO TID 09/16/19 [History] HYDROmorphone [Dilaudid] 2 mg PO Q6H PRN 09/16/19 [History] HYDROmorphone [Dilaudid] 2 mg PO TID 09/16/19 [History] LORazepam [Ativan] 0.5 mg PO 1200,1600 09/16/19 [History] LORazepam [Ativan] 0.5 mg PO Q6H PRN 09/16/19 [History] LORazepam [Ativan] 1 mg PO 0800,199909/16/19 [History] Losartan [Cozaar] 50 mg PO DAILY 09/16/19 [History] Magnesium Oxide [Magnesium] 400 mg PO BID 09/16/19 [History] Simvastatin 20 mg PO BEDTIME 09/16/19 [History] Terazosin [Hytrin] 5 mg PO BID 09/16/19 [History] busPIRone HCl [Buspirone HCl] 7.5 mg PO BID 09/16/19 [History] fentaNYL [Duragesic] 75 mcg TD Q72H 09/16/19 [History] traZODone HCl [Trazodone HCl] 100 mg PO BEDTIME 09/16/19 [History] - CURRENT (IN HOUSE) MEDS Current Meds: Current Medications Albuterol (Proventil Neb Soln) 2.5 mg NEB Q2H PRN PRN Reason: Shortness Of Breath/wheezing Carbidopa/Levodopa (Sinemet 25-100 Mg) 1 tab PO QID [facility] Last Admin: 09/17/19 08:54 Dose: 1 tab Documented by: Fentanyl (Duragesic) 75 mcg TRDERM Q72H [facility] Gabapentin (Neurontin) 200 mg PO TID [facility] Last Admin: 09/17/19 08:53 Dose: 200 mg Documented by: Heparin Sodium (Porcine) (Heparin Sodium) 5,000 units SUBCUT Q8H [facility] Last Admin: 09/17/19 08:56 Dose: 5,000 units Documented by: Hydromorphone HCl (Dilaudid) 1 mg IVPUSH Q2H PRN PRN Reason: Pain (severe 7-10) Last Admin: 09/17/19 08:49 Dose: 1 mg Documented by: Dextrose/Sodium Chloride (Dextrose 5%-1/2 Ns) 1,000 mls @ 50 mls/hr IV ASDIRECTED [facility] Last Admin: 09/17/19 00:38 Dose: 50 mls/hr Documented by: Lorazepam (Ativan) 1 mg PO Q8H PRN PRN Reason: Anxiety Last Admin: 09/17/19 07:17 Dose: 1 mg Documented by: Miscellaneous Information (Remove Patch) 1 ea TRDERM Q72H [facility] Ondansetron HCl (Zofran Odt) 4 mg PO Q4H PRN PRN Reason: nausea, able to take PO Terazosin HCl (Hytrin) 5 mg PO BID [facility] Last Admin: 09/17/19 08:53 Dose: 5 mg Documented by: Discontinued Medications Hydromorphone HCl (Dilaudid) 0.5 mg IVPUSH ONETIME ONE Stop: 09/16/19 21:03 Last Admin: 09/16/19 21:19 Dose: 0.5 mg Documented by: Dextrose/Sodium Chloride (Dextrose 5%-Normal Saline) 1,000 mls @ 150 mls/hr IV ASDIRECTED [facility] Last Infusion: 09/17/19 00:05 Dose: 50 mls/hr Documented by: Ondansetron HCl (Zofran) 4 mg IVPUSH ONETIME ONE Stop: 09/16/19 21:03 Last Admin: 09/16/19 21:14 Dose: 4 mg Documented by:
--- NOTE | 2019-09-17 12:15 | CR ---
Chest: Portable view of the chest was obtained. Comparison: Prior chest CT of 09/16/19. Findings: Heart is slightly enlarged. Upper mediastinum is normal. Atelectasis is seen within the left lung base. Left lower rib fractures are seen which are better identified on chest CT. Deformity compatible with old healed distal right clavicle fracture is present. No discrete pneumothorax is seen. Mild degenerative change is scattered within the spine. Impression: 1. Mild left basilar atelectasis. 2. Several left lower rib fractures are seen which are better seen on prior CT. 3. Slight cardiomegaly. Diagnostic code #3 This report was dictated in MDT
[2019-09-17] MEDS ORDERED: ePHEDrine 50 MG/ML SDV IVPUSH PRN (13:20)
--- NOTE | 2019-09-17 15:06 | PCM.PN ---
- General Info Date of Service: 09/17/19 Admission Dx/Problem (Free Text): Fall with rib fxs, left Subjective Update: Still in a lot of pain from left sided rib fractures. Able to maintain his saturations. Tolerating clears Functional Status: Reports: Tolerating Diet (clears), Urinating Pain Score: 8 - Review of Systems General: Reports: No Symptoms HEENT: Reports: No Symptoms Pulmonary: Reports: Other (chest pain) Cardiovascular: Reports: Chest Pain (left due to rib fractures) Gastrointestinal: Reports: No Symptoms Genitourinary: Reports: No Symptoms Musculoskeletal: Reports: No Symptoms Skin: Reports: No Symptoms Neurological: Reports: Difficulty Walking, Weakness, Gait Disturbance Psychiatric: Reports: Other (Parkinson's) - Patient Data Vitals - Most Recent: Last Vital Signs Temp 98.8 F 09/17/19 14:13 Pulse 80 09/17/19 00:00 Resp 12 09/17/19 14:13 BP 112/67 09/17/19 14:13 Pulse Ox 97 09/17/19 14:13 Weight - Most Recent: 80.467 kg I&O - Last 24 Hours: Intake & Output 09/16/19 09/17/19 09/17/19 22:59 06:59 14:59 Intake Total 944 Output Total 350 500 Balance 594 -500 Lab Results Last 24 Hours: Laboratory Results - last 24 hr 09/16/19 09/16/19 09/16/19 Range/Units 17:00 21:10 21:10 WBC 13.18 H (4.23-9.07) K/mm3 RBC 4.75 (4.63-6.08) M/mm3 Hgb 13.9 (13.7-17.5) gm/dl Hct 42.0 (40.1-51.0) % MCV 88.4 (79.0-92.2) fl MCH 29.3 (25.7-32.2) pg MCHC 33.1 (32.2-35.5) g/dl RDW Std Deviation 39.7 (35.1-43.9) fL Plt Count 166 (163-337) K/mm3 MPV 11.1 (9.4-12.3) fl Neut % (Auto) 89.0 H (34.0-67.9) % Lymph % (Auto) 5.5 L (21.8-53.1) % Cole % (Auto) 4.9 L (5.3-12.2) % Eos % (Auto) 0.1 L (0.8-7.0) Baso % (Auto) 0.2 (0.1-1.2) % Neut # (Auto) 11.72 H (1.78-5.38) K/mm3 Lymph # (Auto) 0.73 L (1.32-3.57) K/mm3 Cole # (Auto) 0.65 (0.30-0.82) K/mm3 Eos # (Auto) 0.01 L (0.04-0.54) K/mm3 Baso # (Auto) 0.03 (0.01-0.08) K/mm3 Manual Slide Review Abnormal smear Sodium 138 (136-145) mEq/L Potassium 3.7 (3.5-5.1) mEq/L Chloride 101 (98-107) mEq/L Carbon Dioxide 27 (21-32) mEq/L Anion Gap 13.7 (5-15) BUN 20 H (7-18) mg/dL Creatinine 0.8 (0.7-1.3) mg/dL Est Cr Clr Drug Dosing TNP Estimated GFR (MDRD) > 60 (>60) mL/min BUN/Creatinine Ratio 25.0 H (14-18) Glucose 117 H (80-115) mg/dL Calcium 9.0 (8.5-10.1) mg/dL Phosphorus (2.6-4.7) mg/dL Magnesium (1.8-2.4) mg/dl Total Bilirubin 0.8 (0.2-1.0) mg/dL AST 27 (15-37) U/L ALT 7 L (16-63) U/L Alkaline Phosphatase 59 (46-116) U/L Total Protein 7.3 (6.4-8.2) g/dl Albumin 3.9 (3.4-5.0) g/dl Globulin 3.4 gm/dL Albumin/Globulin Ratio 1.2 (1-2) Lipase 102 (73-393) U/L Prostate Specific Ag (0.1-4.0) ng/mL Urine Color (Yellow) Urine Appearance (Clear) Urine pH (5.0-8.0) Ur Specific [place] (1.005-1.030) Urine Protein (Negative) Urine Glucose (UA) (Negative) Urine Ketones (Negative) Urine Occult Blood (Negative) Urine Nitrite (Negative) Urine Bilirubin (Negative) Urine Urobilinogen (0.2-1.0) Ur Leukocyte Esterase (Negative) Urine RBC (0-5) /hpf Urine WBC (0-5) /hpf Urine WBC Clumps (NOT SEEN) /hpf Ur Squamous Epith Cells (0-5) /hpf Urine Bacteria (FEW) /hpf Urine Mucus (FEW) /hpf COVID-19 ([facility]) (NEGATIVE) Blood Type Gel Antibody Screen 09/16/19 09/16/19 09/16/19 Range/Units 21:10 21:10 22:55 WBC (4.23-9.07) K/mm3 RBC (4.63-6.08) M/mm3 Hgb (13.7-17.5) gm/dl Hct (40.1-51.0) % MCV (79.0-92.2) fl MCH (25.7-32.2) pg MCHC (32.2-35.5) g/dl RDW Std Deviation (35.1-43.9) fL Plt Count (163-337) K/mm3 MPV (9.4-12.3) fl Neut % (Auto) (34.0-67.9) % Lymph % (Auto) (21.8-53.1) % Cole % (Auto) (5.3-12.2) % Eos % (Auto) (0.8-7.0) Baso % (Auto) (0.1-1.2) % Neut # (Auto) (1.78-5.38) K/mm3 Lymph # (Auto) (1.32-3.57) K/mm3 Cole # (Auto) (0.30-0.82) K/mm3 Eos # (Auto) (0.04-0.54) K/mm3 Baso # (Auto) (0.01-0.08) K/mm3 Manual Slide Review Sodium (136-145) mEq/L Potassium (3.5-5.1) mEq/L Chloride (98-107) mEq/L Carbon Dioxide (21-32) mEq/L Anion Gap (5-15) BUN (7-18) mg/dL Creatinine (0.7-1.3) mg/dL Est Cr Clr Drug Dosing Estimated GFR (MDRD) (>60) mL/min BUN/Creatinine Ratio (14-18) Glucose (80-115) mg/dL Calcium (8.5-10.1) mg/dL Phosphorus (2.6-4.7) mg/dL Magnesium (1.8-2.4) mg/dl Total Bilirubin (0.2-1.0) mg/dL AST (15-37) U/L ALT (16-63) U/L Alkaline Phosphatase (46-116) U/L Total Protein (6.4-8.2) g/dl Albumin (3.4-5.0) g/dl Globulin gm/dL Albumin/Globulin Ratio (1-2) Lipase (73-393) U/L Prostate Specific Ag 12.4 H (0.1-4.0) ng/mL Urine Color (Yellow) Urine Appearance (Clear) Urine pH (5.0-8.0) Ur Specific [place] (1.005-1.030) Urine Protein (Negative) Urine Glucose (UA) (Negative) Urine Ketones (Negative) Urine Occult Blood (Negative) Urine Nitrite (Negative) Urine Bilirubin (Negative) Urine Urobilinogen (0.2-1.0) Ur Leukocyte Esterase (Negative) Urine RBC (0-5) /hpf Urine WBC (0-5) /hpf Urine WBC Clumps (NOT SEEN) /hpf Ur Squamous Epith Cells (0-5) /hpf Urine Bacteria (FEW) /hpf Urine Mucus (FEW) /hpf COVID-19 ([facility]) Negative (NEGATIVE) Blood Type O POSITIVE Gel Antibody Screen Negative 09/17/19 09/17/19 09/17/19 Range/Units 03:30 05:13 05:13 WBC 7.17 (4.23-9.07) K/mm3 RBC 4.34 L (4.63-6.08) M/mm3 Hgb 12.4 L D (13.7-17.5) gm/dl Hct 39.2 L (40.1-51.0) % MCV 90.3 (79.0-92.2) fl MCH 28.6 (25.7-32.2) pg MCHC 31.6 L (32.2-35.5) g/dl RDW Std Deviation 40.4 (35.1-43.9) fL Plt Count 163 (163-337) K/mm3 MPV 11.6 (9.4-12.3) fl Neut % (Auto) 75.3 H (34.0-67.9) % Lymph % (Auto) 16.2 L (21.8-53.1) % Cole % (Auto) 8.1 (5.3-12.2) % Eos % (Auto) 0 L (0.8-7.0) Baso % (Auto) 0.3 (0.1-1.2) % Neut # (Auto) 5.40 H (1.78-5.38) K/mm3 Lymph # (Auto) 1.16 L (1.32-3.57) K/mm3 Cole # (Auto) 0.58 (0.30-0.82) K/mm3 Eos # (Auto) 0.00 L (0.04-0.54) K/mm3 Baso # (Auto) 0.02 (0.01-0.08) K/mm3 Manual Slide Review Sodium 140 (136-145) mEq/L Potassium 4.5 (3.5-5.1) mEq/L Chloride 104 (98-107) mEq/L Carbon Dioxide 30 (21-32) mEq/L Anion Gap 10.5 (5-15) BUN 19 H (7-18) mg/dL Creatinine 0.8 (0.7-1.3) mg/dL Est Cr Clr Drug Dosing 105.08 Estimated GFR (MDRD) > 60 (>60) mL/min BUN/Creatinine Ratio 23.8 H (14-18) Glucose 103 (80-115) mg/dL Calcium 8.4 L (8.5-10.1) mg/dL Phosphorus 4.4 (2.6-4.7) mg/dL Magnesium 1.9 (1.8-2.4) mg/dl Total Bilirubin 0.9 (0.2-1.0) mg/dL AST 21 (15-37) U/L ALT 9 L (16-63) U/L Alkaline Phosphatase 50 (46-116) U/L Total Protein 6.4 (6.4-8.2) g/dl Albumin 3.3 L (3.4-5.0) g/dl Globulin 3.1 gm/dL Albumin/Globulin Ratio 1.1 (1-2) Lipase (73-393) U/L Prostate Specific Ag (0.1-4.0) ng/mL Urine Color Yellow (Yellow) Urine Appearance Clear (Clear) Urine pH 5.5 (5.0-8.0) Ur Specific [place] > or = 1.030 (1.005-1.030) Urine Protein Trace H (Negative) Urine Glucose (UA) Negative (Negative) Urine Ketones 1+ H (Negative) Urine Occult Blood 3+ H (Negative) Urine Nitrite Positive H (Negative) Urine Bilirubin Negative (Negative) Urine Urobilinogen 0.2 (0.2-1.0) Ur Leukocyte Esterase Trace H (Negative) Urine RBC 10-20 H (0-5) /hpf Urine WBC 5-10 H (0-5) /hpf Urine WBC Clumps Rare (NOT SEEN) /hpf Ur Squamous Epith Cells 0-5 (0-5) /hpf Urine Bacteria Moderate H (FEW) /hpf Urine Mucus Moderate H (FEW) /hpf COVID-19 ([facility]) (NEGATIVE) Blood Type Gel Antibody Screen 09/17/19 Range/Units 10:50 WBC (4.23-9.07) K/mm3 RBC (4.63-6.08) M/mm3 Hgb (13.7-17.5) gm/dl Hct (40.1-51.0) % MCV (79.0-92.2) fl MCH (25.7-32.2) pg MCHC (32.2-35.5) g/dl RDW Std Deviation (35.1-43.9) fL Plt Count (163-337) K/mm3 MPV (9.4-12.3) fl Neut % (Auto) (34.0-67.9) % Lymph % (Auto) (21.8-53.1) % Cole % (Auto) (5.3-12.2) % Eos % (Auto) (0.8-7.0) Baso % (Auto) (0.1-1.2) % Neut # (Auto) (1.78-5.38) K/mm3 Lymph # (Auto) (1.32-3.57) K/mm3 Cole # (Auto) (0.30-0.82) K/mm3 Eos # (Auto) (0.04-0.54) K/mm3 Baso # (Auto) (0.01-0.08) K/mm3 Manual Slide Review Sodium (136-145) mEq/L Potassium (3.5-5.1) mEq/L Chloride (98-107) mEq/L Carbon Dioxide (21-32) mEq/L Anion Gap (5-15) BUN (7-18) mg/dL Creatinine (0.7-1.3) mg/dL Est Cr Clr Drug Dosing Estimated GFR (MDRD) (>60) mL/min BUN/Creatinine Ratio (14-18) Glucose (80-115) mg/dL Calcium (8.5-10.1) mg/dL Phosphorus (2.6-4.7) mg/dL Magnesium (1.8-2.4) mg/dl Total Bilirubin (0.2-1.0) mg/dL AST (15-37) U/L ALT (16-63) U/L Alkaline Phosphatase (46-116) U/L Total Protein (6.4-8.2) g/dl Albumin (3.4-5.0) g/dl Globulin gm/dL Albumin/Globulin Ratio (1-2) Lipase (73-393) U/L Prostate Specific Ag (0.1-4.0) ng/mL Urine Color Yellow (Yellow) Urine Appearance Clear (Clear) Urine pH 5.0 (5.0-8.0) Ur Specific [place] > or = 1.030 (1.005-1.030) Urine Protein 1+ H (Negative) Urine Glucose (UA) Negative (Negative) Urine Ketones Trace H (Negative) Urine Occult Blood 3+ H (Negative) Urine Nitrite Negative (Negative) Urine Bilirubin 1+ H (Negative) Urine Urobilinogen 0.2 (0.2-1.0) Ur Leukocyte Esterase 1+ H (Negative) Urine RBC 10-20 H (0-5) /hpf Urine WBC 40-50 H (0-5) /hpf Urine WBC Clumps (NOT SEEN) /hpf Ur Squamous Epith Cells 0-5 (0-5) /hpf Urine Bacteria Few (FEW) /hpf Urine Mucus Not seen (FEW) /hpf COVID-19 ([facility]) (NEGATIVE) Blood Type Gel Antibody Screen Med Orders - Current: Current Medications Albuterol (Proventil Neb Soln) 2.5 mg NEB Q2H PRN PRN Reason: Shortness Of Breath/wheezing Carbidopa/Levodopa (Sinemet 25-100 Mg) 1 tab PO QID [facility] Last Admin: 09/17/19 12:34 Dose: 1 tab Documented by: Diphenhydramine HCl (Benadryl) 25 mg IVPUSH Q6H PRN PRN Reason: pruritis Ephedrine Sulfate (Ephedrine Sulfate) 5 mg IVPUSH ASDIRECTED PRN PRN Reason: Hypotension Fentanyl (Duragesic) 75 mcg TRDERM Q72H [facility] Fentanyl (Sublimaze) 100 mcg EPIDUR Q3H PRN PRN Reason: Pain Fentanyl/Bupivacaine HCl (Fentanyl/Bupivacaine/Ns 2 Mcg-0.125% 100 Ml) 100 ml EPIDUR ASDIRECTED PRN PRN Reason: Pain Gabapentin (Neurontin) 200 mg PO TID [facility] Last Admin: 09/17/19 08:53 Dose: 200 mg Documented by: Heparin Sodium (Porcine) (Heparin Sodium) 5,000 units SUBCUT Q8H [facility] Last Admin: 09/17/19 08:56 Dose: 5,000 units Documented by: Hydromorphone HCl (Dilaudid) 1 mg IVPUSH Q2H PRN PRN Reason: Pain (severe 7-10) Last Admin: 09/17/19 12:36 Dose: 1 mg Documented by: Dextrose/Sodium Chloride (Dextrose 5%-1/2 Ns) 1,000 mls @ 50 mls/hr IV ASDIRECTED [facility] Last Admin: 09/17/19 00:38 Dose: 50 mls/hr Documented by: Lorazepam (Ativan) 1 mg PO Q8H PRN PRN Reason: Anxiety Last Admin: 09/17/19 07:17 Dose: 1 mg Documented by: Miscellaneous Information (Remove Patch) 1 ea TRDERM Q72H [facility] Ondansetron HCl (Zofran Odt) 4 mg PO Q4H PRN PRN Reason: nausea, able to take PO Terazosin HCl (Hytrin) 5 mg PO BID [facility] Last Admin: 09/17/19 08:53 Dose: 5 mg Documented by: Discontinued Medications Hydromorphone HCl (Dilaudid) 0.5 mg IVPUSH ONETIME ONE Stop: 09/16/19 21:03 Last Admin: 09/16/19 21:19 Dose: 0.5 mg Documented by: Dextrose/Sodium Chloride (Dextrose 5%-Normal Saline) 1,000 mls @ 150 mls/hr IV ASDIRECTED [facility] Last Infusion: 09/17/19 00:05 Dose: 50 mls/hr Documented by: Ondansetron HCl (Zofran) 4 mg IVPUSH ONETIME ONE Stop: 09/16/19 21:03 Last Admin: 09/16/19 21:14 Dose: 4 mg Documented by: - Exam General: Alert, Oriented, Cooperative Lungs: Clear to Auscultation, Other (splinting at times) Cardiovascular: Regular Rate, Regular Rhythm, No Murmurs GI/Abdominal Exam: Soft, Non-Tender, No Distention Sepsis Event Note - Evaluation Sepsis Screening Result: No Definite Risk - Focused Exam Vital Signs: Vital Signs Temp Resp BP BP Pulse Ox 09/17/19 14:13 98.8 F 12 112/67 97 09/17/19 13:00 14 93 L 09/17/19 12:01 15 95 09/17/19 12:00 12 122/73 94 L 09/17/19 11:59 13 95 09/17/19 11:00 11 L 97 09/17/19 10:01 16 09/17/19 10:00 12 131/76 93 L 09/17/19 09:59 28 H 93 L 09/17/19 09:01 21 H 97 09/17/19 09:00 13 125/79 97 09/17/19 08:59 13 97 09/17/19 08:53 118/67 09/17/19 08:01 19 97 09/17/19 08:00 8 L 118/67 95 09/17/19 07:59 10 L 98 09/17/19 07:01 12 97 09/17/19 07:00 11 L 124/69 124/69 95 09/17/19 06:59 10 L 96 09/17/19 06:01 15 99 09/17/19 06:00 12 110/64 110/64 96 09/17/19 05:59 98 09/17/19 05:01 32 H 09/17/19 05:00 15 112/63 112/63 09/17/19 04:59 17 09/17/19 04:01 46 H 95 09/17/19 04:00 97.8 F 33 H 106/60 106/60 94 L 09/17/19 03:59 37 H 95 09/17/19 03:01 14 112/69 97 09/17/19 03:00 15 112/69 97 Date Exam was Performed: 09/17/19 Time Exam was Performed: 14:57 - Problem List Review Problem List Initiated/Reviewed/Updated: No - My Orders Last 24 Hours: My Active Orders 09/17/19 00:17 Albuterol [Proventil Neb Soln] 2.5 mg NEB Q2H PRN Dextrose 5%-0.45% NaCl [Dextrose 5%-1/2 NS] 1,000 ml IV ASDIRECTED HYDROmorphone [Dilaudid] 1 mg IVPUSH Q2H PRN Heparin Sodium 5,000 units SUBCUT Q8H Ondansetron [Zofran ODT] 4 mg PO Q4H PRN 09/17/19 00:17 Patient Status [ADT] Routine Cardiac Monitoring [RC] CONTINUOUS Intake and Output [RC] Q2HR Notify Provider Vital Signs [RC] ASDIRECTED Oxygen Therapy [RC] PRN Pulse Oximetry [RC] CONTINUOUS RT Aerosol Therapy [RC] ASDIRECTED Up With Assistance [RC] ASDIRECTED VTE/DVT Education [RC] , Vital Signs [RC] Q1HR Respiratory Care Assess and Treatment [CONS] Routine 09/17/19 00:21 Resuscitation Status Routine 09/17/19 03:22 Urinary Catheter Assessment [RC] Q4HR 09/17/19 03:30 Insert Guerrero Catheter [Insert Urinary Catheter] [OM.PC] Q24H 09/17/19 05:49 LORazepam [Ativan] 1 mg PO Q8H PRN 09/17/19 09:00 Carbidopa/Levodopa [Sinemet 25-100 mg] 1 tab PO QID Gabapentin [Neurontin] 200 mg PO TID Terazosin [Hytrin] 5 mg PO BID 09/17/19 10:41 OT Evaluation and Treatment [CONS] Routine PT Evaluation and Treatment [CONS] Routine 09/17/19 10:46 BANQUET SET UP PERSON Evaluation and Treatment [CONS] Routine 09/17/19 Dinner Clear Liquid Diet [DIET] 09/18/19 05:11 CBC WITH AUTO DIFF [HEME] AM COMPREHENSIVE METABOLIC PN,CMP [CHEM] AM MAGNESIUM [CHEM] AM PHOSPHORUS [CHEM] AM 09/18/19 09:00 fentaNYL [Duragesic] 75 mcg TRDERM Q72H 09/19/19 05:11 CBC WITH AUTO DIFF [HEME] AM COMPREHENSIVE METABOLIC PN,CMP [CHEM] AM MAGNESIUM [CHEM] AM PHOSPHORUS [CHEM] AM 09/21/19 09:00 Remove Patch 1 ea TRDERM Q72H - Assessment Assessment:: Left sides rib fractures s/p fall from standing onto a wooden chair on 09/15 - Plan Plan:: Pain - restarted home DIlaudid, fentanyl patch. Added IV dilaudid - APPLICATION INTEGRATION SPECIALIST will attempt a thoracic epidural. If this faile, we will try BAG MAKING MACHINE OPERATOR Psychiatric - Restarted home parkinson's meds and all other meds - Respiratory - splinting due to pain. once pain controlled with either epidural or BAG MAKING MACHINE OPERATOR, we will start aggressive pulm hygiene including IS, iPAP, sitting upright GI - restart regular diet after swallow eval. If no formal eval, bedside eval is sufficient - Add Miralax - IVF at 25 cc/hr - UA mixed. not concerning for acute infection - Keep guerrero for now until pain controlled to avoid retention
[2019-09-17] MEDS ORDERED: Sodium Chloride 0.9% 250 ML IV SCH (15:30)
--- NOTE | 2019-09-17 15:51 | PCM.PRNOTE ---
- Free Text/Narrative Note: Continuous thoracic epidural catheter placement for acute pain management Dx: Multiple left rib fractures Requesting surgeon: Dr. Georgiana Beltre Patient has been interviewed, risk/benefits/alternatives discussed, questions answered. Vital signs and labs reviewed. Consent signed. IVF are continuous drip.. Patient is sitting on the bed, supported by RN, positioning using pillow. Time out performed at 14:46. Mask, head cover, sterile gloves on. Betadine preparation x3 and sterile drape. Local infiltration with 1% Lidocaine at T8 - T9 interspace. 1 x attempt with 17G Tuohy needle midline approach. Loss of Resistance at 6 cm. No fluid obtained, no blood obtained. No paresthesia encountered. Easy threading in of 19G catheter. Secured at 12 cm at the skin. Test dose given 3 ml of 1.5% Lidocaine with 1:200K epinephrine, negative for intravascular/ negative for intrathecal placement. Vital signs stable. 7 mls of 1.5 % PF Lidocaine with 1:200K epinephrine given in incremental boluses. Catheter dressing applied and filter attached. Level assessed at 15:00 approximately T8. Patient reports decrease of pain from 8/10 to 2/10. PCEA drip 0.125% Bupivacaine with 2 mcg/ml of Fentanyl started at 5 mls/hr with patient controlled bolus 1.5 mls every 15 min. Patient received instruction and education about PCEA. Orders entered. Start of procedure: 14:38 End of procedure: 15:00
[2019-09-17] MEDS ORDERED: Lidocaine 1.5% with EPINEPHrine 1:200,000 5 ML Amp ONE (16:00)
[2019-09-17] MEDS: fentaNYL 100 MCG/2 ML SDV EPIDUR PRN (16:11)
[2019-09-17] MEDS: Bupivacaine/fentaNYL/NS 100 ML Bag EPIDUR PRN (16:18)
[2019-09-18] MEDS: Heparin Sodium 5,000 Units/ML Vial SUBCUT SCH ×4 (00:14→23:22)
[2019-09-18] MEDS: Bupivacaine/fentaNYL/NS 100 ML Bag EPIDUR PRN ×3 (01:42→20:23)
[2019-09-18] MEDS: HYDROmorphone 0.5 MG/0.5 ML Syringe IVPUSH PRN ×3 (01:49→09:22)
[2019-09-18] MEDS: diphenhydrAMINE 50 MG/ML SDV IVPUSH PRN ×3 (01:50→22:18)
[2019-09-18] MEDS: LORazepam 1 MG Tab PO PRN (05:56)
[2019-09-18] MEDS ORDERED: Magnesium Oxide 400 MG Tab PO ONE (08:45)
[2019-09-18] MEDS: Carbidopa/Levodopa 25-100 MG Tab PO SCH ×4 (08:56→20:21)
[2019-09-18] MEDS: Gabapentin 100 MG Cap PO SCH ×3 (08:56→20:18)
[2019-09-18] MEDS: Terazosin 5 MG Cap PO SCH ×2 (08:57→20:21)
[2019-09-18] MEDS: fentaNYL 75 MCG/HR Transdermal Patch TRDERM SCH (09:01)
--- NOTE | 2019-09-18 09:54 | PCM.PN ---
- General Info Date of Service: 09/18/19 Admission Dx/Problem (Free Text): Fall with rib fxs, left Subjective Update: Patient had epidura yesterday and this improved his pain significantly. He is now able to breath better and use Incentive spirometer. Still in considerable pain this AM but this is still better. No fevers or chills. Not taking much PO. Functional Status: Reports: Tolerating Diet, Urinating Pain Score: 6 - Review of Systems General: Reports: No Symptoms HEENT: Reports: No Symptoms Pulmonary: Reports: No Symptoms Cardiovascular: Reports: Chest Pain Gastrointestinal: Reports: No Symptoms Genitourinary: Reports: No Symptoms Musculoskeletal: Reports: No Symptoms Neurological: Reports: Difficulty Walking, Gait Disturbance - Patient Data Vitals - Most Recent: Last Vital Signs Temp 99 F 09/18/19 08:00 Pulse 80 09/17/19 00:00 Resp 20 09/18/19 09:00 BP 153/87 H 09/18/19 09:00 Pulse Ox 97 09/18/19 09:00 Weight - Most Recent: 80.83 kg I&O - Last 24 Hours: Intake & Output 09/17/19 09/18/19 09/18/19 22:59 06:59 14:59 Intake Total 1196 1560 Output Total 230 170 60 Balance 966 1390 -60 Lab Results Last 24 Hours: Laboratory Results - last 24 hr 09/17/19 09/18/19 09/18/19 Range/Units 10:50 05:18 05:18 WBC 5.38 (4.23-9.07) K/mm3 RBC 4.24 L (4.63-6.08) M/mm3 Hgb 12.3 L (13.7-17.5) gm/dl Hct 38.4 L (40.1-51.0) % MCV 90.6 (79.0-92.2) fl MCH 29.0 (25.7-32.2) pg MCHC 32.0 L (32.2-35.5) g/dl RDW Std Deviation 40.2 (35.1-43.9) fL Plt Count 133 L (163-337) K/mm3 MPV 11.8 (9.4-12.3) fl Neut % (Auto) 55.6 (34.0-67.9) % Lymph % (Auto) 31.4 (21.8-53.1) % [place] % (Auto) 11.7 (5.3-12.2) % Eos % (Auto) 0.9 (0.8-7.0) Baso % (Auto) 0.4 (0.1-1.2) % Neut # (Auto) 2.99 (1.78-5.38) K/mm3 Lymph # (Auto) 1.69 (1.32-3.57) K/mm3 [place] # (Auto) 0.63 (0.30-0.82) K/mm3 Eos # (Auto) 0.05 (0.04-0.54) K/mm3 Baso # (Auto) 0.02 (0.01-0.08) K/mm3 Sodium 137 (136-145) mEq/L Potassium 3.9 (3.5-5.1) mEq/L Chloride 102 (98-107) mEq/L Carbon Dioxide 31 (21-32) mEq/L Anion Gap 7.9 (5-15) BUN 13 (7-18) mg/dL Creatinine 0.8 (0.7-1.3) mg/dL Est Cr Clr Drug Dosing 105.08 mL/min Estimated GFR (MDRD) > 60 (>60) mL/min BUN/Creatinine Ratio 16.3 (14-18) Glucose 91 (80-115) mg/dL Calcium 8.3 L (8.5-10.1) mg/dL Phosphorus 2.9 (2.6-4.7) mg/dL Magnesium 1.7 L (1.8-2.4) mg/dl Total Bilirubin 1.1 H (0.2-1.0) mg/dL AST 24 (15-37) U/L ALT 11 L (16-63) U/L Alkaline Phosphatase 50 (46-116) U/L Total Protein 6.4 (6.4-8.2) g/dl Albumin 3.3 L (3.4-5.0) g/dl Globulin 3.1 gm/dL Albumin/Globulin Ratio 1.1 (1-2) Urine Color Yellow (Yellow) Urine Appearance Clear (Clear) Urine pH 5.0 (5.0-8.0) Ur Specific [place] > or = 1.030 (1.005-1.030) Urine Protein 1+ H (Negative) Urine Glucose (UA) Negative (Negative) Urine Ketones Trace H (Negative) Urine Occult Blood 3+ H (Negative) Urine Nitrite Negative (Negative) Urine Bilirubin 1+ H (Negative) Urine Urobilinogen 0.2 (0.2-1.0) Ur Leukocyte Esterase 1+ H (Negative) Urine RBC 10-20 H (0-5) /hpf Urine WBC 40-50 H (0-5) /hpf Ur Squamous Epith Cells 0-5 (0-5) /hpf Urine Bacteria Few (FEW) /hpf Urine Mucus Not seen (FEW) /hpf Med Orders - Current: Current Medications Albuterol (Proventil Neb Soln) 2.5 mg NEB Q2H PRN PRN Reason: Shortness Of Breath/wheezing Carbidopa/Levodopa (Sinemet 25-100 Mg) 1 tab PO QID [facility] Last Admin: 09/18/19 08:56 Dose: 1 tab Documented by: Diphenhydramine HCl (Benadryl) 25 mg IVPUSH Q6H PRN PRN Reason: pruritis Last Admin: 09/18/19 01:50 Dose: 25 mg Documented by: Ephedrine Sulfate (Ephedrine Sulfate) 5 mg IVPUSH ASDIRECTED PRN PRN Reason: Hypotension Fentanyl (Duragesic) 75 mcg TRDERM Q72H [facility] Last Admin: 09/18/19 09:01 Dose: 75 mcg Documented by: Fentanyl (Sublimaze) 100 mcg EPIDUR Q3H PRN PRN Reason: Pain Last Admin: 09/17/19 16:11 Dose: 100 mcg Documented by: Fentanyl/Bupivacaine HCl (Fentanyl/Bupivacaine/Ns 2 Mcg-0.125% 100 Ml) 100 ml EPIDUR ASDIRECTED PRN PRN Reason: Pain Last Admin: 09/18/19 01:42 Dose: 100 ml Documented by: Gabapentin (Neurontin) 200 mg PO TID [facility] Last Admin: 09/18/19 08:56 Dose: 200 mg Documented by: Heparin Sodium (Porcine) (Heparin Sodium) 5,000 units SUBCUT Q8H [facility] Last Admin: 09/18/19 08:56 Dose: 5,000 units Documented by: Hydromorphone HCl (Dilaudid) 1 mg IVPUSH Q2H PRN PRN Reason: Pain (severe 7-10) Last Admin: 09/18/19 09:22 Dose: 1 mg Documented by: Sodium Chloride (Normal Saline) 250 mls @ 249.723 mls/hr IV ASDIRECTED [facility] Dextrose/Sodium Chloride (Dextrose 5%-1/2 Ns) 1,000 mls @ 75 mls/hr IV ASDIRECTED [facility] Lorazepam (Ativan) 1 mg PO Q8H PRN PRN Reason: Anxiety Last Admin: 09/18/19 05:56 Dose: 1 mg Documented by: Miscellaneous Information (Remove Patch) 1 ea TRDERM Q72H [facility] Ondansetron HCl (Zofran Odt) 4 mg PO Q4H PRN PRN Reason: nausea, able to take PO Terazosin HCl (Hytrin) 5 mg PO BID [facility] Last Admin: 09/18/19 08:57 Dose: 5 mg Documented by: Discontinued Medications Hydromorphone HCl (Dilaudid) 0.5 mg IVPUSH ONETIME ONE Stop: 09/16/19 21:03 Last Admin: 09/16/19 21:19 Dose: 0.5 mg Documented by: Dextrose/Sodium Chloride (Dextrose 5%-Normal Saline) 1,000 mls @ 150 mls/hr IV ASDIRECTED [facility] Last Infusion: 09/17/19 00:05 Dose: 50 mls/hr Documented by: Dextrose/Sodium Chloride (Dextrose 5%-1/2 Ns) 1,000 mls @ 50 mls/hr IV ASDIRECTED [facility] Last Infusion: 09/18/19 08:55 Dose: 75 mls/hr Documented by: Lidocaine/Epinephrine (Xylocaine-Mpf 1.5% W/Epinephrine 1:200,000) 5 ml .ROUTE .STK-MED ONE Stop: 09/17/19 16:01 Magnesium Oxide (Magnesium Oxide) 800 mg PO ONETIME ONE Stop: 09/18/19 08:46 Last Admin: 09/18/19 09:10 Dose: 800 mg Documented by: Ondansetron HCl (Zofran) 4 mg IVPUSH ONETIME ONE Stop: 09/16/19 21:03 Last Admin: 09/16/19 21:14 Dose: 4 mg Documented by: - Exam Quality Assessment: Supplemental Oxygen General: Alert, Oriented, Cooperative, Moderate Distress Lungs: Clear to Auscultation, Other (winces with pain periodically. chest wall tenderness on the left side) Cardiovascular: Regular Rate, Regular Rhythm GI/Abdominal Exam: Soft, Non-Tender, No Organomegaly, No Distention Sepsis Event Note - Evaluation Sepsis Screening Result: No Definite Risk - Focused Exam Vital Signs: Vital Signs Temp Resp BP BP Pulse Ox 09/18/19 09:00 20 153/87 H 97 09/18/19 08:57 149/90 H 09/18/19 08:00 99 F 12 133/81 96 09/18/19 07:00 17 117/66 93 L 09/18/19 06:00 19 148/83 H 96 09/18/19 05:00 14 128/73 93 L 09/18/19 04:00 98.8 F 14 112/70 95 09/18/19 03:00 16 118/66 94 L 09/18/19 02:00 15 122/68 94 L 09/18/19 01:00 16 122/73 93 L 09/18/19 00:00 98.9 F 14 115/66 95 09/17/19 23:00 16 131/69 94 L 09/17/19 22:00 12 122/80 94 L Date Exam was Performed: 09/18/19 Time Exam was Performed: 09:49 - Problem List Review Problem List Initiated/Reviewed/Updated: No - My Orders Last 24 Hours: My Active Orders 09/17/19 09:00 Carbidopa/Levodopa [Sinemet 25-100 mg] 1 tab PO QID Gabapentin [Neurontin] 200 mg PO TID Terazosin [Hytrin] 5 mg PO BID 09/17/19 10:41 OT Evaluation and Treatment [CONS] Routine PT Evaluation and Treatment [CONS] Routine 09/17/19 10:46 DOCK PUMPER Evaluation and Treatment [CONS] Routine 09/17/19 15:24 Consult to Physical Therapy [PT Evaluation and Treatment] [CONS] Routine 09/17/19 Dinner Clear Liquid Diet [DIET] Soft Diet [DIET] 09/17/19 18:07 Notify Provider Consults [RC] ASDIRECTED 09/18/19 09:00 fentaNYL [Duragesic] 75 mcg TRDERM Q72H 09/18/19 09:15 Dextrose 5%-0.45% NaCl [Dextrose 5%-1/2 NS] 1,000 ml IV ASDIRECTED 09/18/19 18:03 Consult to Physician [CONS] Routine 09/21/19 09:00 Remove Patch 1 ea TRDERM Q72H - Assessment Assessment:: Left sides rib fractures s/p fall from standing onto a wooden chair on 09/15 - Plan Plan:: Pain - restarted home DIlaudid, fentanyl patch. Added IV dilaudid prn - Epidural now in place. Will increase dose to help reduce the pain further Psychiatric - Restarted home parkinson's meds and all other meds Respiratory - Continue aggressive pulm hygiene including IS, iPAP, sitting upright GI - soft diet - Add Miralax - Increase IVF at 75 cc/hr due to marginal UOP - UA mixed. not concerning for acute infection - Keep guerrero for now until pain controlled to avoid retention
[2019-09-18] MEDS ORDERED: HYDROmorphone 1 MG/ML Syringe IVPUSH PRN (10:21)
[2019-09-18] MEDS: LORazepam 0.5 MG Tab PO SCH ×2 (11:53→16:17)
[2019-09-18] MEDS: busPIRone 15 MG Tab PO SCH ×2 (11:53→20:21)
[2019-09-18] MEDS ORDERED: LORazepam 0.5 MG Tab PO SCH (12:00)
--- NOTE | 2019-09-18 12:01 | PCM48HPAN ---
Post Anesthesia Note - EVALUATION WITHIN 48HRS OF ANESTHETIC Vital Signs in Normal Range: Yes Patient Participated in Evaluation: Yes Respiratory Function Stable: Yes Airway Patent: Yes Cardiovascular Function Stable: Yes Hydration Status Stable: Yes Pain Control Satisfactory: Yes Nausea and Vomiting Control Satisfactory: Yes Mental Status Recovered: Yes Vital Signs: Last Vital Signs Temp 99 F 09/18/19 08:00 Pulse 80 09/17/19 00:00 Resp 22 H 09/18/19 11:00 BP 137/77 09/18/19 11:00 Pulse Ox 96 09/18/19 11:00 - COMMENTS/OBSERVATIONS Free Text/Narrative:: Assessment and re-evaluation of the patient receiving a continuous epidural drip Patient is on her post-procedure day 1. Vitas signs stable. Thoracic epidural site intact. Current rate of Bupivacaine 0.125% with Fentanyl 2mcg/ml has been increased from 5mls/hr to 7 mls/hr (PCEA bolus has been increased from 1.5 to 2mls q 15 min). Epidural bolus of Fentanyl 100 mcg given PRN at 12:07 pm. Patient is stable hemodynamically at this rate and tolerating well. No lower extremities weakness or numbness noted. Patient is up to the chair and may ambulate with assistance as tolerated. Plan is not to remove epidural catheter at this time. We will reevaluate the patient within the next 24 hours. Vincent Lopez CRNA.
[2019-09-18] MEDS: fentaNYL 100 MCG/2 ML SDV EPIDUR PRN (12:07)
[2019-09-18] MEDS: Dextrose 5%-0.45% NaCl 1,000 ML IV SCH ×2 (12:48→23:22)
[2019-09-18] MEDS: Cyclobenzaprine 10 MG Tab PO SCH (20:18)
[2019-09-18] MEDS: LORazepam 1 MG Tab PO SCH (20:19)
[2019-09-18] MEDS: Baclofen 10 MG Tab PO SCH (20:19)
[2019-09-18] MEDS: Simvastatin 20 MG Tab PO SCH (20:20)
[2019-09-18] MEDS: HYDROmorphone 2 MG Tab PO SCH (20:20)
[2019-09-18] MEDS: traZODone 50 MG Tab PO SCH (20:20)
[2019-09-18] MEDS: Magnesium Oxide 400 MG Tab PO SCH (20:22)
[2019-09-18] MEDS ORDERED: Gabapentin 100 MG Cap PO SCH (21:00)
[2019-09-18] MEDS: Diclofenac Sodium 1% Gel 100 GM Tube TOP SCH (21:13)
[2019-09-18] MEDS: LORazepam 0.5 MG Tab PO PRN (23:22)
[2019-09-19] MEDS: Acetaminophen 325 MG Tab PO PRN (01:48)
[2019-09-19] MEDS: HYDROmorphone 2 MG Tab PO PRN (04:05)
[2019-09-19] MEDS: Heparin Sodium 5,000 Units/ML Vial SUBCUT SCH ×2 (07:48→16:59)
[2019-09-19] MEDS: LORazepam 1 MG Tab PO SCH ×2 (07:49→20:00)
[2019-09-19] MEDS: Cyclobenzaprine 10 MG Tab PO SCH ×3 (08:06→20:02)
[2019-09-19] MEDS: Terazosin 5 MG Cap PO SCH ×2 (08:06→20:02)
[2019-09-19] MEDS: HYDROmorphone 2 MG Tab PO SCH ×3 (08:06→20:03)
[2019-09-19] MEDS: Carbidopa/Levodopa 25-100 MG Tab PO SCH ×4 (08:08→20:01)
[2019-09-19] MEDS: Losartan 25 MG Tab PO SCH (08:08)
[2019-09-19] MEDS: Magnesium Oxide 400 MG Tab PO SCH ×2 (08:08→20:04)
[2019-09-19] MEDS: Gabapentin 100 MG Cap PO SCH ×3 (08:09→20:01)
[2019-09-19] MEDS: busPIRone 15 MG Tab PO SCH ×2 (08:09→20:04)
[2019-09-19] MEDS: Celecoxib 100 MG Cap PO SCH (08:09)
[2019-09-19] MEDS: Baclofen 10 MG Tab PO SCH ×4 (08:09→20:01)
[2019-09-19] MEDS: Diclofenac Sodium 1% Gel 100 GM Tube TOP SCH ×5 (08:17→20:05)
[2019-09-19] MEDS: Bupivacaine/fentaNYL/NS 100 ML Bag EPIDUR PRN ×2 (08:28→19:00)
--- NOTE | 2019-09-19 09:12 | PCM.PN ---
- General Info Date of Service: 09/19/19 Admission Dx/Problem (Free Text): Fall with rib fxs, left Subjective Update: Patient is doing better. Pain is better. breathing is better. all home medications are restarted. Functional Status: Reports: Pain Controlled, Tolerating Diet Pain Score: 2 - Review of Systems General: Reports: No Symptoms HEENT: Reports: No Symptoms Pulmonary: Reports: No Symptoms Cardiovascular: Reports: No Symptoms Gastrointestinal: Reports: No Symptoms Genitourinary: Reports: No Symptoms Musculoskeletal: Reports: No Symptoms Skin: Reports: No Symptoms Neurological: Reports: Difficulty Walking, Change in Speech, Other (parkinsons) Psychiatric: Reports: Other - Patient Data Vitals - Most Recent: Last Vital Signs Temp 98.1 F 09/19/19 08:00 Pulse 60 09/19/19 07:00 Resp 14 09/19/19 08:00 BP 136/75 09/19/19 08:08 Pulse Ox 98 09/19/19 08:00 Weight - Most Recent: 80.649 kg I&O - Last 24 Hours: Intake & Output 09/18/19 09/19/19 09/19/19 22:59 06:59 14:59 Intake Total 1594 1253 Output Total 580 470 200 Balance 1014 783 -200 Med Orders - Current: Current Medications Acetaminophen (Tylenol) 650 mg PO Q6H PRN PRN Reason: Pain Last Admin: 09/19/19 01:48 Dose: 650 mg Documented by: Albuterol (Proventil Neb Soln) 2.5 mg NEB Q2H PRN PRN Reason: Shortness Of Breath/wheezing Baclofen (Lioresal) 10 mg PO QID [facility] Last Admin: 09/19/19 08:09 Dose: 10 mg Documented by: Buspirone HCl (Buspar) 7.5 mg PO BID [facility] Last Admin: 09/19/19 08:09 Dose: 7.5 mg Documented by: Carbidopa/Levodopa (Sinemet 25-100 Mg) 1 tab PO QID [facility] Last Admin: 09/19/19 08:08 Dose: 1 tab Documented by: Celecoxib (Celebrex) 200 mg PO DAILY [facility] Last Admin: 09/19/19 08:09 Dose: 200 mg Documented by: Citalopram Hydrobromide (Celexa) 40 mg PO BEDTIME [facility] Cyclobenzaprine HCl (Flexeril) 5 mg PO TID [facility] Last Admin: 09/19/19 08:06 Dose: 5 mg Documented by: Diclofenac Sodium (Voltaren 1% Gel) 2 gm TOP QID [facility] Last Admin: 09/19/19 08:17 Dose: Not Given Documented by: Diphenhydramine HCl (Benadryl) 25 mg IVPUSH Q6H PRN PRN Reason: pruritis Last Admin: 09/18/19 22:18 Dose: 25 mg Documented by: Ephedrine Sulfate (Ephedrine Sulfate) 5 mg IVPUSH ASDIRECTED PRN PRN Reason: Hypotension Fentanyl (Duragesic) 75 mcg TRDERM Q72H [facility] Last Admin: 09/18/19 09:01 Dose: 75 mcg Documented by: Fentanyl (Sublimaze) 100 mcg EPIDUR Q3H PRN PRN Reason: Pain Last Admin: 09/18/19 12:07 Dose: 100 mcg Documented by: Fentanyl/Bupivacaine HCl (Fentanyl/Bupivacaine/Ns 2 Mcg-0.125% 100 Ml) 100 ml EPIDUR ASDIRECTED PRN PRN Reason: Pain Last Admin: 09/19/19 08:28 Dose: 100 ml Documented by: Gabapentin (Neurontin) 200 mg PO TID [facility] Last Admin: 09/19/19 08:09 Dose: 200 mg Documented by: Heparin Sodium (Porcine) (Heparin Sodium) 5,000 units SUBCUT Q8H [facility] Last Admin: 09/19/19 07:48 Dose: 5,000 units Documented by: Hydromorphone HCl (Dilaudid) 1 mg IVPUSH Q2H PRN PRN Reason: Pain (severe 7-10) Hydromorphone HCl (Dilaudid) 2 mg PO Q6H PRN PRN Reason: Pain Last Admin: 09/19/19 04:05 Dose: 2 mg Documented by: Hydromorphone HCl (Dilaudid) 2 mg PO TID [facility] Last Admin: 09/19/19 08:06 Dose: 2 mg Documented by: Sodium Chloride (Normal Saline) 250 mls @ 249.723 mls/hr IV ASDIRECTED [facility] Dextrose/Sodium Chloride (Dextrose 5%-1/2 Ns) 1,000 mls @ 75 mls/hr IV ASDIRECTED [facility] Last Admin: 09/18/19 23:22 Dose: 75 mls/hr Documented by: Lorazepam (Ativan) 1 mg PO Q8H PRN PRN Reason: Anxiety Last Admin: 09/18/19 05:56 Dose: 1 mg Documented by: Lorazepam (Ativan) 1 mg PO BID@0800,2000 [facility] Last Admin: 09/19/19 07:49 Dose: 1 mg Documented by: Lorazepam (Ativan) 0.5 mg PO BID@1200,1600 [facility] Last Admin: 09/18/19 16:17 Dose: 0.5 mg Documented by: Lorazepam (Ativan) 0.5 mg PO Q6H PRN PRN Reason: Anxiety Last Admin: 09/18/19 23:22 Dose: 0.5 mg Documented by: Losartan Potassium (Cozaar) 50 mg PO DAILY [facility] Last Admin: 09/19/19 08:08 Dose: 50 mg Documented by: Magnesium Oxide (Magnesium Oxide) 400 mg PO BID [facility] Last Admin: 09/19/19 08:08 Dose: 400 mg Documented by: Miscellaneous Information (Remove Patch) 1 ea TRDERM Q72H [facility] Ondansetron HCl (Zofran Odt) 4 mg PO Q4H PRN PRN Reason: nausea, able to take PO Senna/Docusate Sodium (Senna Plus) 1 tab PO TID PRN PRN Reason: Constipation Last Admin: 09/19/19 07:49 Dose: 1 tab Documented by: Simvastatin (Zocor) 20 mg PO BEDTIME [facility] Last Admin: 09/18/19 20:20 Dose: 20 mg Documented by: Terazosin HCl (Hytrin) 5 mg PO BID [facility] Last Admin: 09/19/19 08:06 Dose: 5 mg Documented by: Trazodone HCl (Trazodone) 100 mg PO BEDTIME [facility] Last Admin: 09/18/19 20:20 Dose: 100 mg Documented by: Discontinued Medications Fentanyl (Duragesic) 75 mcg TRDERM Q72H [facility] Gabapentin (Neurontin) 200 mg PO TID [facility] Hydromorphone HCl (Dilaudid) 0.5 mg IVPUSH ONETIME ONE Stop: 09/16/19 21:03 Last Admin: 09/16/19 21:19 Dose: 0.5 mg Documented by: Hydromorphone HCl (Dilaudid) 1 mg IVPUSH Q2H PRN PRN Reason: Pain (severe 7-10) Last Admin: 09/18/19 09:22 Dose: 1 mg Documented by: Dextrose/Sodium Chloride (Dextrose 5%-Normal Saline) 1,000 mls @ 150 mls/hr IV ASDIRECTED JASPER Last Infusion: 09/17/19 00:05 Dose: 50 mls/hr Documented by: Dextrose/Sodium Chloride (Dextrose 5%-1/2 Ns) 1,000 mls @ 50 mls/hr IV ASDIRECTED [facility] Last Infusion: 09/18/19 08:55 Dose: 75 mls/hr Documented by: Lidocaine/Epinephrine (Xylocaine-Mpf 1.5% W/Epinephrine 1:200,000) 5 ml .ROUTE .STK-MED ONE Stop: 09/17/19 16:01 Lorazepam (Ativan) 0.5 mg PO 1200,1600 [facility] Magnesium Oxide (Magnesium Oxide) 800 mg PO ONETIME ONE Stop: 09/18/19 08:46 Last Admin: 09/18/19 09:10 Dose: 800 mg Documented by: Ondansetron HCl (Zofran) 4 mg IVPUSH ONETIME ONE Stop: 09/16/19 21:03 Last Admin: 09/16/19 21:14 Dose: 4 mg Documented by: - Exam General: Alert, Oriented, Cooperative Lungs: Clear to Auscultation, Normal Respiratory Effort Cardiovascular: Regular Rate, Regular Rhythm, No Murmurs GI/Abdominal Exam: Soft Sepsis Event Note - Evaluation Sepsis Screening Result: No Definite Risk - Focused Exam Vital Signs: Vital Signs Temp Pulse Resp BP BP Pulse Ox 09/19/19 08:08 136/75 09/19/19 08:06 136/75 09/19/19 08:00 98.1 F 14 136/75 98 09/19/19 07:00 60 16 129/83 99 09/19/19 06:00 60 13 114/66 98 09/19/19 05:00 70 15 118/62 93 L 09/19/19 04:00 98.5 F 71 15 124/70 95 09/19/19 03:00 76 15 107/61 99 09/19/19 02:00 76 18 123/68 92 L 09/19/19 01:00 74 17 112/71 95 09/19/19 00:00 98.6 F 74 16 113/67 93 L 09/18/19 23:00 75 18 134/84 95 09/18/19 22:00 76 18 113/66 94 L Date Exam was Performed: 09/19/19 Time Exam was Performed: 09:08 - Problem List Review Problem List Initiated/Reviewed/Updated: No - My Orders Last 24 Hours: My Active Orders 09/18/19 09:00 fentaNYL [Duragesic] 75 mcg TRDERM Q72H 09/18/19 09:15 Dextrose 5%-0.45% NaCl [Dextrose 5%-1/2 NS] 1,000 ml IV ASDIRECTED 09/18/19 10:21 HYDROmorphone [Dilaudid] 1 mg IVPUSH Q2H PRN 09/18/19 11:33 CULTURE URINE [RM] Routine 09/18/19 11:45 busPIRone [Buspar] 7.5 mg PO BID 09/18/19 12:00 LORazepam [Ativan] 0.5 mg PO BID@1200,1600 09/18/19 18:03 Consult to Physician [CONS] Routine 09/18/19 19:48 Docusate Sodium/Sennosides [Senna Plus] 1 tab PO TID PRN HYDROmorphone [Dilaudid] 2 mg PO Q6H PRN 09/18/19 20:00 LORazepam [Ativan] 1 mg PO BID@0800,2000 09/18/19 20:02 Acetaminophen [Tylenol] 650 mg PO Q6H PRN 09/18/19 20:08 LORazepam [Ativan] 0.5 mg PO Q6H PRN 09/18/19 21:00 Baclofen [Lioresal] 10 mg PO QID Cyclobenzaprine [Flexeril] 5 mg PO TID Diclofenac Sodium [Voltaren 1% Gel] 2 gm TOP QID HYDROmorphone [Dilaudid] 2 mg PO TID Magnesium Oxide 400 mg PO BID Simvastatin [Zocor] 20 mg PO BEDTIME traZODone 100 mg PO BEDTIME 09/19/19 09:00 Celecoxib [CeleBREX] 200 mg PO DAILY Losartan [Cozaar] 50 mg PO DAILY 09/19/19 21:00 Citalopram [Celexa] 40 mg PO BEDTIME 09/21/19 09:00 Remove Patch 1 ea TRDERM Q72H - Assessment Assessment:: Left sides rib fractures s/p fall from standing onto a wooden chair on 09/15 - Plan Plan:: Pain - restarted home DIlaudid, fentanyl patch. Added IV dilaudid prn - Epidural now in place. Will increase dose to help reduce the pain further Psychiatric - Restarted home parkinson's meds and all other meds Respiratory - Continue aggressive pulm hygiene including IS, iPAP, sitting upright GI - soft diet - continue Miralax - reduce IVF to 50 cc/hr due to marginal UOP - UA mixed. not concerning for acute infection - Keep guerrero for now until pain controlled to avoid retention
[2019-09-19] MEDS: Polyethylene Glycol 3350 Powder 17 GM Packet PO SCH (10:43)
--- NOTE | 2019-09-19 11:29 | CONS ---
CONSULTING PHYSICIAN: Yared Redding MD DATE OF CONSULTATION: 09/18/2019 Site where the services are provided is [facility] in [place], [place]. Site where the services are provided from our offices in [facility]. Length of service for this 60-minute inpatient telemedicine event is 60 minutes. IDENTIFICATION: The patient is a 64-year-old male who is admitted to the [facility] in [place], [place]. He is seen for psychiatric consultation per the request of staff attending, Dr. Beltre and his treatment team. CHIEF COMPLAINT: "I fell down at the assisted living place." HISTORY OF PRESENT ILLNESS: The patient is a 64-year-old male who was admitted to the inpatient MICU at [facility] in [place], [place] on 09/16/2019, after falling and suffering 5 broken ribs on the left side of his chest. He had been recently just living at that facility and was not familiar with the place per staff report and now, as he is convalescing, the plan is to have him go to a long-term care placement called [facility] in [place], [place]. At this point in time, the patient has been experiencing significant physical pain and that is being controlled with a number of opioid analgesics. The patient is also experiencing "a lot of anxiety." He states on interview that prior to admission, "I was in a good mood," but he does acknowledge that his main issue has been anxiety and noted "I have had it for a long time, it has sort of been my story." He states that he had been doing pretty good not only mood villaseñor, but from anxiety standpoint pretty decent, but then when he was over in [place], he was seeing a doctor and he used to be on a medication called BuSpar, but they took him off that, and he said that medication "works" for him in terms of reducing his anxiety. He states he is not really sure why they took him off the medication, but conjectures that it could have been "maybe because of my medications," intimating that he was on too many medications and they were trying to simplify his medication regimen. The patient is wanting to try BuSpar again because he is experiencing anxiety and he states that it did help and he did not have any side effects with the medication. He states that his anxiety has been bad for over 20 years and seemed to get really bad when his son in secondary to an asthma attack. He denies any suicidal or homicidal. He denies any psychotic, delusional, or paranoid symptoms. 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 MEDICATIONS: At time of presentation: 1. Ativan 1 mg b.i.d., 0.5 mg b.i.d. The patient has been on this medication for 3 years. 2. Lexapro 20 mg at bedtime. The patient has been on this medication for 1- 1/2 years. It should be noted that he does state that both Ativan and Lexapro helped him, maybe worse without these medications, but he used to be on BuSpar as well and that combination really helped him. 3. Gabapentin 200 mg daily. 4. Flexeril. 5. Labetalol. 6. Dilaudid 2 mg t.i.d. and 2 mg x1 p.r.n. 7. Fentanyl patch. 8. Epidural HUMAN RESOURCES PROJECT COORDINATOR. ALLERGIES: No known drug allergies. REVIEW OF SYSTEMS: Aside from musculoskeletal and cardiovascular, all other major organ systems are negative at this point in time for acute difficulties or complications. FAMILY PSYCHIATRIC AND CD HISTORY: Patient reports mother had a history of anxiety. PAST PSYCHIATRIC AND CD HISTORY: Patient reports no previous psychiatric hospitalizations. No previous chemical dependency treatment. He has been sober for 3 years. He is a nontobacco user. Denies any suicide attempts or self-injurious behaviors. PAST PSYCHIATRIC DIAGNOSIS: Anxiety. PAST PSYCHIATRIC MEDICATION HISTORY: Includes [email or web address] which worked for the patient. SOCIAL HISTORY: The patient is born and raised in [place], [place]. He is oldest of 3 siblings, having 1 brother and 1 sister. The patient's parents were throughout his childhood and adolescent. Father worked for the [employer]. Mother was a homemaker. 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 He has been twice, twice. He has 1 child from the first marriage, 3 from the second. He is not involved in any current relationships now. Again, lives by himself in [place] when he is not in the hospital. He denies any prior service or current legal difficulties. He is [employer] in terms of his bonnie formation. He enjoys watching baseball games in his spare time. MENTAL STATUS EXAM: The patient is a 64-year-old white male in no apparent distress. Speech is of regular rate and rhythm. The patient is cognitively oriented x3. Psychomotor activity is within normal limits. There are no abnormal motor movements or tics observed. Gait and station are not observed. This patient is lying in bed during the inpatient consult. Mood is anxious. Affect is cooperative overall for the purposes of the inpatient consult. There is no behavioral or stated evidence of acute suicidal or homicidal ideation or acute psychotic, delusional, or paranoid symptoms. Thought processes are organized. There are no manic symptoms or loose associations evident. Judgment and insight appear unimpaired at this point in time. Motivation for help is good. VITAL SIGNS: 126/80, 81, 14, and 99 degrees. IMPRESSION: [place] I: 1. Generalized anxiety disorder, F41.1. 2. Depression, not otherwise specified, F32.9. 3. Rule out posttraumatic stress disorder. 4. Rule out major depressive disorder. [place] II: None. [place] III: 1. Status post fractured ribs, left-sided chest x5. 2. History of hypertension. [place] IV: Severe. [place] V: 60. PLAN: 1. Begin trial of BuSpar 7.5 mg b.i.d. x7 days, increasing to 15 mg b.i.d. thereafter for anxiety reduction. 2. Continue Ativan as dosed 1 mg b.i.d. and 0.5 mg b.i.d. scheduled for anxiety reduction. 3. Continue Lexapro as dosed 20 mg at bedtime for symptoms of depression and panic and anxiety reduction. 4. Other medications as dosed and prescribed by the patient's primary inpatient medical treatment team. 5. The patient is apprised of benefits and side effects of his newly initiated and restarted psychiatric medication regimen. He acknowledged his understanding of these facts, have no further questions by the end of the interview session. 6. Would recommend the patient follow up with Outpatient Psychiatry once the patient is medically stabilized and discharged back to the community to assess his overall function and efficacy of his newly initiated, restarted, and adjusted psychiatric medication regimen. 7. We will continue to follow up with the patient on an as-needed basis while he remains on the inpatient MICU at [facility] in [place], [place]. 8. We will follow up with the patient sooner if there are any complications in the interim. 9. Crisis plan is in place. JOSETTE /[id number]
[2019-09-19] MEDS: LORazepam 0.5 MG Tab PO SCH ×2 (12:06→17:00)
--- NOTE | 2019-09-19 13:48 | PCM.POSTAN ---
POST ANESTHESIA ASSESSMENT - MENTAL STATUS Mental Status: Alert, Oriented - VITAL SIGNS Vital Signs: Last Vital Signs Temp 98.4 F 09/19/19 12:00 Pulse 60 09/19/19 07:00 Resp 12 09/19/19 13:00 BP 109/68 09/19/19 13:00 Pulse Ox 96 09/19/19 13:00 - RESPIRATORY Respiratory Status: Respiratory Rate WNL, Airway Patent, O2 Saturation Stable - CARDIOVASCULAR CV Status: Pulse Rate WNL, Blood Pressure Stable - GASTROINTESTINAL GI Status: No Symptoms - PAIN Pain Score: 3 - OBSERVATIONS Free Text/Narrative:: 09/19/19 -09/20/19 1330 Patient is on his post-procedure day 2. Vitas signs stable. Thoracic epidural site intact. Pain level rating at a 3-4. Some concern about starting all home po meds. Discussed with patient and nurse and we will monitor need to decrease epidural rate. Current rate of Bupivacaine 0.125% with Fentanyl 2mcg/ml is at 7 mls/hr. Patient is stable hemodynamically at this rate and tolerating well. No lower extremities weakness or numbness noted. Patient is up to the chair and may ambulate with assistance as tolerated. Plan is not to remove epidural catheter at this time. We will reevaluate the patient within the next 24 hours. Vanesa Hernandez FIELD FOREMAN
[2019-09-19] MEDS: Dextrose 5%-0.45% NaCl 1,000 ML IV SCH (14:11)
[2019-09-19] MEDS: Citalopram 20 MG Tab PO SCH (20:03)
[2019-09-19] MEDS: Simvastatin 20 MG Tab PO SCH (20:03)
[2019-09-19] MEDS: traZODone 50 MG Tab PO SCH (20:04)
[2019-09-20] MEDS: Heparin Sodium 5,000 Units/ML Vial SUBCUT SCH ×4 (00:16→23:48)
[2019-09-20] MEDS: Acetaminophen 325 MG Tab PO PRN (00:29)
[2019-09-20] MEDS: LORazepam 0.5 MG Tab PO PRN (00:29)
[2019-09-20] MEDS: Dextrose 5%-0.45% NaCl 1,000 ML IV SCH ×2 (04:51→23:48)
[2019-09-20] MEDS: LORazepam 1 MG Tab PO SCH ×2 (08:02→19:48)
[2019-09-20] MEDS: LORazepam 1 MG Tab PO PRN (08:03)
[2019-09-20] MEDS: HYDROmorphone 2 MG Tab PO SCH ×3 (08:09→20:24)
[2019-09-20] MEDS: Bupivacaine/fentaNYL/NS 100 ML Bag EPIDUR PRN (08:22)
[2019-09-20] MEDS: Cyclobenzaprine 10 MG Tab PO SCH ×3 (08:38→20:25)
[2019-09-20] MEDS: busPIRone 15 MG Tab PO SCH ×2 (08:56→20:26)
[2019-09-20] MEDS: Terazosin 5 MG Cap PO SCH ×2 (08:56→20:27)
[2019-09-20] MEDS: Gabapentin 100 MG Cap PO SCH ×3 (08:56→20:29)
[2019-09-20] MEDS: Celecoxib 100 MG Cap PO SCH (08:57)
[2019-09-20] MEDS: Losartan 25 MG Tab PO SCH (08:57)
[2019-09-20] MEDS: Magnesium Oxide 400 MG Tab PO SCH ×2 (08:57→20:25)
[2019-09-20] MEDS: Carbidopa/Levodopa 25-100 MG Tab PO SCH ×4 (08:58→20:30)
[2019-09-20] MEDS: Baclofen 10 MG Tab PO SCH ×4 (08:58→20:29)
[2019-09-20] MEDS: Polyethylene Glycol 3350 Powder 17 GM Packet PO SCH (09:02)
[2019-09-20] MEDS: Diclofenac Sodium 1% Gel 100 GM Tube TOP SCH ×4 (09:03→20:34)
[2019-09-20] MEDS ORDERED: Morphine PF 1 MG/ML Amp EPIDUR PRN (10:16)
[2019-09-20] MEDS: fentaNYL 100 MCG/2 ML SDV EPIDUR PRN (10:44)
--- NOTE | 2019-09-20 11:03 | PCM.POSTAN ---
POST ANESTHESIA ASSESSMENT - MENTAL STATUS Mental Status: Alert, Oriented - VITAL SIGNS Vital Signs: Last Vital Signs Temp 96.9 F 09/20/19 09:00 Pulse 59 L 09/20/19 06:00 Resp 9 L 09/20/19 09:55 BP 128/67 09/20/19 08:57 Pulse Ox 95 09/20/19 09:55 - RESPIRATORY Respiratory Status: Respiratory Rate WNL, Airway Patent, O2 Saturation Stable, Supplemental Oxygen - CARDIOVASCULAR CV Status: Pulse Rate WNL, Blood Pressure Stable - GASTROINTESTINAL GI Status: No Symptoms - PAIN Pain Score: 4 - POST OP HYDRATION Hydration Status: Adequate & Stable - OBSERVATIONS Free Text/Narrative:: 09/20/19 -09/21/19 1030 Patient is on his post-procedure day 3. Vitas signs stable. Thoracic epidural site intact. Pain level rating at a 3-4. Per discussion with Dr. Romero we are planning to wean the patient off the epidural PCEA drip gradually towards the transfer from the ICU to the MS floor and its substitution with intermittent epidural opioid boluses. Discussed with patient and nurse the decrease of the epidural rate. Current rate of Bupivacaine 0.125% with Fentanyl 2mcg/ml is down to 4 mls/hr, PCEA bolus is down to 1ml every 15 minutes. Epidural bolus of Fentanyl 100 mcg has been administered. We are planning to stop the epidural drip once the current bag is empty. Patient is stable hemodynamically at this rate and tolerating well. No lower extremities weakness or numbness noted. Patient is up to the chair and may ambulate with assistance as tolerated. Plan is not to remove epidural catheter at this time. We will reevaluate the patient within the next 24 hours. Vincent Lopez CRNA
[2019-09-20] MEDS: LORazepam 0.5 MG Tab PO SCH ×2 (11:15→15:20)
--- NOTE | 2019-09-20 17:20 | PCM.PN ---
- General Info Date of Service: 09/20/19 Admission Dx/Problem (Free Text): Fall with rib fxs, left Subjective Update: Patient is doing well. Slept well. Still has left sided chest pain but its not as severe. Tolerating diet. He is using incentive spirometer Functional Status: Reports: Pain Controlled, Tolerating Diet Pain Score: 2 - Review of Systems General: Reports: No Symptoms HEENT: Reports: No Symptoms Cardiovascular: Reports: No Symptoms Gastrointestinal: Reports: No Symptoms Genitourinary: Reports: No Symptoms Musculoskeletal: Reports: No Symptoms - Patient Data Vitals - Most Recent: Last Vital Signs Temp 98 F 09/20/19 16:00 Pulse 77 09/20/19 14:00 Resp 16 09/20/19 17:05 BP 128/67 09/20/19 14:00 Pulse Ox 94 L 09/20/19 17:05 Weight - Most Recent: 81.284 kg I&O - Last 24 Hours: Intake & Output 09/20/19 09/20/19 09/20/19 06:59 14:59 22:59 Intake Total 2177 480 829 Output Total 600 650 350 Balance 1577 -170 479 Rommel Results Last 24 Hours: Microbiology 09/17/19 11:33 Urine Culture - Preliminary Urine, Guerrero Cath (Indwelling) Pseudomonas Aeruginosa Med Orders - Current: Current Medications Acetaminophen (Tylenol) 650 mg PO Q6H PRN PRN Reason: Pain Last Admin: 09/20/19 00:29 Dose: 650 mg Documented by: Albuterol (Proventil Neb Soln) 2.5 mg NEB Q2H PRN PRN Reason: Shortness Of Breath/wheezing Baclofen (Lioresal) 10 mg PO QID [facility] Last Admin: 09/20/19 16:45 Dose: 10 mg Documented by: Buspirone HCl (Buspar) 7.5 mg PO BID [facility] Last Admin: 09/20/19 08:56 Dose: 7.5 mg Documented by: Carbidopa/Levodopa (Sinemet 25-100 Mg) 1 tab PO QID [facility] Last Admin: 09/20/19 16:45 Dose: 1 tab Documented by: Celecoxib (Celebrex) 200 mg PO DAILY [facility] Last Admin: 09/20/19 08:57 Dose: 200 mg Documented by: Citalopram Hydrobromide (Celexa) 40 mg PO BEDTIME [facility] Last Admin: 09/19/19 20:03 Dose: 40 mg Documented by: Cyclobenzaprine HCl (Flexeril) 5 mg PO TID [facility] Last Admin: 09/20/19 15:20 Dose: 5 mg Documented by: Diclofenac Sodium (Voltaren 1% Gel) 2 gm TOP QID [facility] Last Admin: 09/20/19 16:55 Dose: 1 applic Documented by: Diphenhydramine HCl (Benadryl) 25 mg IVPUSH Q6H PRN PRN Reason: pruritis Last Admin: 09/18/19 22:18 Dose: 25 mg Documented by: Ephedrine Sulfate (Ephedrine Sulfate) 5 mg IVPUSH ASDIRECTED PRN PRN Reason: Hypotension Fentanyl (Duragesic) 75 mcg TRDERM Q72H [facility] Last Admin: 09/18/19 09:01 Dose: 75 mcg Documented by: Fentanyl (Sublimaze) 100 mcg EPIDUR Q3H PRN PRN Reason: Pain Last Admin: 09/20/19 10:44 Dose: 100 mcg Documented by: Fentanyl/Bupivacaine HCl (Fentanyl/Bupivacaine/Ns 2 Mcg-0.125% 100 Ml) 100 ml EPIDUR ASDIRECTED PRN PRN Reason: Pain Last Admin: 09/20/19 08:22 Dose: 100 ml Documented by: Gabapentin (Neurontin) 200 mg PO TID [facility] Last Admin: 09/20/19 15:20 Dose: 200 mg Documented by: Heparin Sodium (Porcine) (Heparin Sodium) 5,000 units SUBCUT Q8H [facility] Last Admin: 09/20/19 15:20 Dose: 5,000 units Documented by: Hydromorphone HCl (Dilaudid) 1 mg IVPUSH Q2H PRN PRN Reason: Pain (severe 7-10) Hydromorphone HCl (Dilaudid) 2 mg PO Q6H PRN PRN Reason: Pain Last Admin: 09/19/19 04:05 Dose: 2 mg Documented by: Hydromorphone HCl (Dilaudid) 2 mg PO TID [facility] Last Admin: 09/20/19 15:21 Dose: 2 mg Documented by: Sodium Chloride (Normal Saline) 250 mls @ 249.723 mls/hr IV ASDIRECTED [facility] Dextrose/Sodium Chloride (Dextrose 5%-1/2 Ns) 1,000 mls @ 50 mls/hr IV ASDIRECTED [facility] Last Admin: 09/20/19 04:51 Dose: 50 mls/hr Documented by: Lorazepam (Ativan) 1 mg PO Q8H PRN PRN Reason: Anxiety Last Admin: 09/18/19 05:56 Dose: 1 mg Documented by: Lorazepam (Ativan) 1 mg PO BID@0800,2000 [facility] Last Admin: 09/20/19 08:02 Dose: 1 mg Documented by: Lorazepam (Ativan) 0.5 mg PO BID@1200,1600 [facility] Last Admin: 09/20/19 15:20 Dose: 0.5 mg Documented by: Lorazepam (Ativan) 0.5 mg PO Q6H PRN PRN Reason: Anxiety Last Admin: 09/20/19 00:29 Dose: 0.5 mg Documented by: Losartan Potassium (Cozaar) 50 mg PO DAILY [facility] Last Admin: 09/20/19 08:57 Dose: 50 mg Documented by: Magnesium Oxide (Magnesium Oxide) 400 mg PO BID [facility] Last Admin: 09/20/19 08:57 Dose: 400 mg Documented by: Miscellaneous Information (Remove Patch) 1 ea TRDERM Q72H [facility] Morphine Sulfate (Duramorph Pf) 5 mg EPIDUR Q6H PRN PRN Reason: Pain Ondansetron HCl (Zofran Odt) 4 mg PO Q4H PRN PRN Reason: nausea, able to take PO Polyethylene Glycol (Miralax) 17 gm PO DAILY [facility] Last Admin: 09/20/19 09:02 Dose: 17 gm Documented by: Senna/Docusate Sodium (Senna Plus) 1 tab PO TID PRN PRN Reason: Constipation Last Admin: 09/20/19 15:20 Dose: 1 tab Documented by: Simvastatin (Zocor) 20 mg PO BEDTIME [facility] Last Admin: 09/19/19 20:03 Dose: 20 mg Documented by: Terazosin HCl (Hytrin) 5 mg PO BID [facility] Last Admin: 09/20/19 08:56 Dose: 5 mg Documented by: Trazodone HCl (Trazodone) 100 mg PO BEDTIME [facility] Last Admin: 09/19/19 20:04 Dose: 100 mg Documented by: Discontinued Medications Fentanyl (Duragesic) 75 mcg TRDERM Q72H [facility] Gabapentin (Neurontin) 200 mg PO TID [facility] Hydromorphone HCl (Dilaudid) 0.5 mg IVPUSH ONETIME ONE Stop: 09/16/19 21:03 Last Admin: 09/16/19 21:19 Dose: 0.5 mg Documented by: Hydromorphone HCl (Dilaudid) 1 mg IVPUSH Q2H PRN PRN Reason: Pain (severe 7-10) Last Admin: 09/18/19 09:22 Dose: 1 mg Documented by: Dextrose/Sodium Chloride (Dextrose 5%-Normal Saline) 1,000 mls @ 150 mls/hr IV ASDIRECTED [facility] Last Infusion: 09/17/19 00:05 Dose: 50 mls/hr Documented by: Dextrose/Sodium Chloride (Dextrose 5%-1/2 Ns) 1,000 mls @ 50 mls/hr IV ASDIRECTED [facility] Last Infusion: 09/18/19 08:55 Dose: 75 mls/hr Documented by: Lidocaine/Epinephrine (Xylocaine-Mpf 1.5% W/Epinephrine 1:200,000) 5 ml .ROUTE .STK-MED ONE Stop: 09/17/19 16:01 Lorazepam (Ativan) 0.5 mg PO 1200,1600 [facility] Magnesium Oxide (Magnesium Oxide) 800 mg PO ONETIME ONE Stop: 09/18/19 08:46 Last Admin: 09/18/19 09:10 Dose: 800 mg Documented by: Ondansetron HCl (Zofran) 4 mg IVPUSH ONETIME ONE Stop: 09/16/19 21:03 Last Admin: 09/16/19 21:14 Dose: 4 mg Documented by: - Exam General: Alert, Oriented, Cooperative Lungs: Clear to Auscultation, Other (better respiratory strength) Cardiovascular: Regular Rate, Regular Rhythm, No Murmurs GI/Abdominal Exam: Normal Bowel Sounds, Soft, Non-Tender Sepsis Event Note - Evaluation Sepsis Screening Result: No Definite Risk - Focused Exam Vital Signs: Vital Signs Temp Pulse Resp BP BP Pulse Ox 09/20/19 17:05 16 94 L 09/20/19 16:55 13 96 09/20/19 16:45 12 99 09/20/19 16:35 9 L 97 09/20/19 16:30 9 L 98 09/20/19 16:25 12 99 09/20/19 16:20 14 94 L 09/20/19 16:15 16 95 09/20/19 16:10 14 95 09/20/19 16:05 14 96 09/20/19 16:00 98 F 10 L 95 09/20/19 15:55 16 96 09/20/19 15:50 8 L 95 09/20/19 15:45 9 L 93 L 09/20/19 15:40 11 L 97 09/20/19 15:35 93 L 09/20/19 15:31 97 09/20/19 15:25 13 96 09/20/19 15:20 17 91 L 09/20/19 15:15 17 96 09/20/19 15:10 14 96 09/20/19 15:05 10 L 92 L 09/20/19 15:00 10 L 95 09/20/19 14:55 15 93 L 09/20/19 14:50 10 L 94 L 09/20/19 14:45 14 94 L 09/20/19 14:40 12 93 L 09/20/19 14:35 15 94 L 09/20/19 14:34 15 09/20/19 14:10 13 09/20/19 14:05 13 95 09/20/19 14:01 12 96 09/20/19 14:00 98.1 F 77 11 L 128/67 128/67 94 L 09/20/19 13:59 12 96 09/20/19 13:55 11 L 95 09/20/19 13:50 11 L 97 09/20/19 13:45 11 L 97 09/20/19 13:40 10 L 98 09/20/19 13:35 13 98 09/20/19 13:30 11 L 98 09/20/19 13:25 10 L 98 09/20/19 13:20 11 L 96 09/20/19 13:15 12 99 09/20/19 13:10 12 99 09/20/19 13:05 12 98 09/20/19 13:03 14 123/77 100 09/20/19 13:02 14 09/20/19 13:01 11 L 87 L 09/20/19 13:00 10 L 85/54 L 99 09/20/19 12:59 11 L 96 09/20/19 12:55 11 L 96 09/20/19 12:50 13 96 09/20/19 12:45 12 96 09/20/19 12:40 12 96 09/20/19 12:35 11 L 96 09/20/19 12:30 10 L 96 09/20/19 12:25 11 L 96 09/20/19 12:20 11 L 96 09/20/19 12:15 10 L 96 09/20/19 12:10 13 96 09/20/19 12:05 13 95 09/20/19 12:01 13 96 09/20/19 12:00 97 F 67 13 92/56 L 96 09/20/19 11:59 13 96 09/20/19 11:55 10 L 95 09/20/19 11:50 9 L 98 09/20/19 11:45 10 L 95 09/20/19 11:40 11 L 95 09/20/19 11:35 13 97 09/20/19 11:30 15 96 09/20/19 11:25 13 96 09/20/19 11:20 17 97 09/20/19 11:15 13 97 09/20/19 11:10 18 98 09/20/19 11:05 19 94 L 09/20/19 11:01 13 95 09/20/19 11:00 10 L 102/66 93 L 09/20/19 10:59 16 95 09/20/19 10:55 11 L 94 L 09/20/19 10:50 10 L 95 09/20/19 10:45 11 L 96 09/20/19 10:40 16 94 L 09/20/19 10:35 12 95 09/20/19 10:30 14 95 09/20/19 10:25 12 95 09/20/19 10:20 14 93 L 09/20/19 10:15 9 L 95 09/20/19 10:10 10 L 93 L 09/20/19 10:05 10 L 95 09/20/19 10:01 10 L 94 L 09/20/19 10:00 11 L 110/68 93 L 09/20/19 09:59 12 94 L 09/20/19 09:55 9 L 95 09/20/19 09:50 18 95 09/20/19 09:45 11 L 94 L 09/20/19 09:40 10 L 94 L 09/20/19 09:35 10 L 95 09/20/19 09:30 10 L 94 L 09/20/19 09:25 9 L 95 09/20/19 09:20 14 95 09/20/19 09:15 10 L 96 09/20/19 09:00 96.9 F 21 H 96 09/20/19 08:57 128/67 09/20/19 08:56 128/67 09/20/19 08:55 11 L 95 09/20/19 08:50 16 95 09/20/19 08:45 14 94 L 09/20/19 08:40 11 L 94 L 09/20/19 08:35 11 L 95 09/20/19 08:30 13 95 09/20/19 08:25 10 L 96 09/20/19 08:20 11 L 96 09/20/19 08:15 12 96 09/20/19 08:10 10 L 95 09/20/19 08:05 15 98 09/20/19 08:01 11 L 128/67 97 09/20/19 08:00 12 97 09/20/19 07:55 10 L 97 09/20/19 07:50 13 99 09/20/19 07:45 10 L 100 09/20/19 07:40 10 L 100 09/20/19 07:35 13 98 09/20/19 07:30 12 98 09/20/19 07:25 11 L 98 09/20/19 07:20 19 98 09/20/19 07:15 14 100 09/20/19 07:10 12 100 09/20/19 07:05 15 100 09/20/19 07:01 13 108/46 L 99 09/20/19 07:00 11 L 88 L 09/20/19 06:55 9 L 98 09/20/19 06:50 10 L 98 09/20/19 06:45 11 L 98 09/20/19 06:40 10 L 98 09/20/19 06:35 10 L 100 09/20/19 06:30 10 L 100 09/20/19 06:25 12 99 09/20/19 06:20 11 L 100 09/20/19 06:15 10 L 100 09/20/19 06:10 14 99 09/20/19 06:05 9 L 100 09/20/19 06:01 10 L 105/61 100 09/20/19 06:00 59 L 13 105/61 93 L 09/20/19 05:55 8 L 99 Date Exam was Performed: 09/20/19 Time Exam was Performed: 17:11 - Problem List Review Problem List Initiated/Reviewed/Updated: No - My Orders Last 24 Hours: My Active Orders 09/19/19 21:00 Citalopram [Celexa] 40 mg PO BEDTIME 09/20/19 16:58 DC Guerrero Catheter [Urinary Catheter Removal] [RC] PER UNIT ROUTINE 09/20/19 17:15 Magnesium Sulfate/D5W [Magnesium Sulfate in D5W 100 Premix] 1 gm Premix Bag 1 bag IV Q1H 09/21/19 09:00 Remove Patch 1 ea TRDERM Q72H - Assessment Assessment:: Left sides rib fractures s/p fall from standing onto a wooden chair on 09/15 - Plan Plan:: Pain - continue home dilaudid and fentanyl patch - Epidural has been in place, this is day 3. Patient has good pain control - We will star weaning off epidural today. We will transition to duramorph. Discussed with with RENE Kaur. He agreed to continue to bolus patient with duramorph -if able to wean off epidural, will transfer to med/surg floor tomorrow Psychiatric - Restarted home parkinson's meds and all other meds Respiratory - Continue aggressive pulm hygiene including IS, iPAP, sitting upright. patient is doing well with this GI - regular diet - continue Miralax - dc IVF - UA mixed. not concerning for acute infection, likely due to colonization. No need to actively treat - Will dc guerrero today
[2019-09-20] MEDS ORDERED: fentaNYL 75 MCG/HR Transdermal Patch TRDERM SCH (20:00)
[2019-09-20] MEDS: traZODone 50 MG Tab PO SCH (20:24)
[2019-09-20] MEDS: Citalopram 20 MG Tab PO SCH (20:27)
[2019-09-20] MEDS: Simvastatin 20 MG Tab PO SCH (20:29)
[2019-09-20] MEDS ORDERED: Morphine PF 10 MG/10 ML SDV ONE (22:03)
--- NOTE | 2019-09-20 22:48 | PCM.SN.2 ---
- Free Text/Narrative Note: PCEA pump 0.125% Bupivacaine with 2 mcg/ml Fentanyl has been discontinued. Patient has received 5 mg Duramorph via epidural catheter. Dressing has been changed, and the site looks intact. Times 5 - 0 Binford Zealisakson [employer]
[2019-09-21] MEDS: LORazepam 1 MG Tab PO PRN (04:09)
[2019-09-21] MEDS: HYDROmorphone 2 MG Tab PO PRN (04:15)
[2019-09-21] MEDS: Heparin Sodium 5,000 Units/ML Vial SUBCUT SCH ×3 (08:10→23:17)
[2019-09-21] MEDS: Magnesium Oxide 400 MG Tab PO SCH ×2 (08:11→20:37)
[2019-09-21] MEDS: Terazosin 5 MG Cap PO SCH ×2 (08:11→20:35)
[2019-09-21] MEDS: Losartan 25 MG Tab PO SCH (08:11)
[2019-09-21] MEDS: Gabapentin 100 MG Cap PO SCH ×3 (08:12→20:36)
[2019-09-21] MEDS: Cyclobenzaprine 10 MG Tab PO SCH ×3 (08:12→20:37)
[2019-09-21] MEDS: Celecoxib 100 MG Cap PO SCH (08:12)
[2019-09-21] MEDS: Baclofen 10 MG Tab PO SCH ×4 (08:12→20:36)
[2019-09-21] MEDS: HYDROmorphone 2 MG Tab PO SCH ×5 (08:12→22:15)
[2019-09-21] MEDS: Polyethylene Glycol 3350 Powder 17 GM Packet PO SCH (08:13)
[2019-09-21] MEDS: Carbidopa/Levodopa 25-100 MG Tab PO SCH ×4 (08:13→20:34)
[2019-09-21] MEDS: busPIRone 15 MG Tab PO SCH ×2 (08:13→20:35)
[2019-09-21] MEDS: LORazepam 1 MG Tab PO SCH ×2 (08:13→19:59)
[2019-09-21] MEDS: fentaNYL 75 MCG/HR Transdermal Patch TRDERM SCH (08:18)
[2019-09-21] MEDS: Diclofenac Sodium 1% Gel 100 GM Tube TOP SCH ×4 (08:24→20:38)
--- NOTE | 2019-09-21 09:20 | PCM.PN ---
- General Info Date of Service: 09/21/19 Admission Dx/Problem (Free Text): Fall with rib fxs, left Subjective Update: Complains of pain overnight as we are trying to wean off epidural and transition to PO pain meds. Otherwise breathing well on RA, tolerating diet, voiding. Functional Status: Reports: Tolerating Diet, Urinating Pain Score: 7 - Review of Systems General: Reports: No Symptoms HEENT: Reports: No Symptoms Pulmonary: Reports: Other (left sided chest pain) Cardiovascular: Reports: No Symptoms, Chest Pain (due to rib fractures) Gastrointestinal: Reports: No Symptoms Genitourinary: Reports: No Symptoms Musculoskeletal: Reports: No Symptoms Skin: Reports: No Symptoms - Patient Data Vitals - Most Recent: Last Vital Signs Temp 97.8 F 09/21/19 04:00 Pulse 57 L 09/21/19 01:00 Resp 16 09/21/19 07:00 BP 146/92 H 09/21/19 08:11 Pulse Ox 95 09/21/19 07:00 Weight - Most Recent: 83.007 kg I&O - Last 24 Hours: Intake & Output 09/20/19 09/21/19 09/21/19 22:59 06:59 14:59 Intake Total 829 803 Output Total 950 300 Balance -121 503 Rommel Results Last 24 Hours: Microbiology 09/17/19 11:33 Urine Culture - Preliminary Urine, Morris Cath (Indwelling) Pseudomonas Aeruginosa Med Orders - Current: Current Medications Acetaminophen (Tylenol) 650 mg PO Q6H PRN PRN Reason: Pain Last Admin: 09/20/19 00:29 Dose: 650 mg Documented by: Albuterol (Proventil Neb Soln) 2.5 mg NEB Q2H PRN PRN Reason: Shortness Of Breath/wheezing Baclofen (Lioresal) 10 mg PO QID [facility] Last Admin: 09/21/19 08:12 Dose: 10 mg Documented by: Buspirone HCl (Buspar) 7.5 mg PO BID [facility] Last Admin: 09/21/19 08:13 Dose: 7.5 mg Documented by: Carbidopa/Levodopa (Sinemet 25-100 Mg) 1 tab PO QID [facility] Last Admin: 09/21/19 08:13 Dose: 1 tab Documented by: Celecoxib (Celebrex) 200 mg PO DAILY [facility] Last Admin: 09/21/19 08:12 Dose: 200 mg Documented by: Citalopram Hydrobromide (Celexa) 40 mg PO BEDTIME [facility] Last Admin: 09/20/19 20:27 Dose: 40 mg Documented by: Cyclobenzaprine HCl (Flexeril) 5 mg PO TID [facility] Last Admin: 09/21/19 08:12 Dose: 5 mg Documented by: Diclofenac Sodium (Voltaren 1% Gel) 2 gm TOP QID [facility] Last Admin: 09/21/19 08:24 Dose: 1 applic Documented by: Diphenhydramine HCl (Benadryl) 25 mg IVPUSH Q6H PRN PRN Reason: pruritis Last Admin: 09/18/19 22:18 Dose: 25 mg Documented by: Ephedrine Sulfate (Ephedrine Sulfate) 5 mg IVPUSH ASDIRECTED PRN PRN Reason: Hypotension Fentanyl (Duragesic) 75 mcg TRDERM Q72H [facility] Last Admin: 09/21/19 08:18 Dose: 75 mcg Documented by: Fentanyl (Sublimaze) 100 mcg EPIDUR Q3H PRN PRN Reason: Pain Last Admin: 09/20/19 10:44 Dose: 100 mcg Documented by: Gabapentin (Neurontin) 200 mg PO TID [facility] Last Admin: 09/21/19 08:12 Dose: 200 mg Documented by: Heparin Sodium (Porcine) (Heparin Sodium) 5,000 units SUBCUT Q8H [facility] Last Admin: 09/21/19 08:10 Dose: 5,000 units Documented by: Hydromorphone HCl (Dilaudid) 1 mg IVPUSH Q2H PRN PRN Reason: Pain (severe 7-10) Hydromorphone HCl (Dilaudid) 2 mg PO Q6H PRN PRN Reason: Pain Last Admin: 09/21/19 04:15 Dose: 2 mg Documented by: Hydromorphone HCl (Dilaudid) 2 mg PO Q4H [facility] Sodium Chloride (Normal Saline) 250 mls @ 249.723 mls/hr IV ASDIRECTED [facility] Dextrose/Sodium Chloride (Dextrose 5%-1/2 Ns) 1,000 mls @ 50 mls/hr IV ASDIRECTED [facility] Last Admin: 09/20/19 23:48 Dose: 50 mls/hr Documented by: Lorazepam (Ativan) 1 mg PO Q8H PRN PRN Reason: Anxiety Last Admin: 09/21/19 04:09 Dose: 1 mg Documented by: Lorazepam (Ativan) 1 mg PO BID@0800,2000 [facility] Last Admin: 09/21/19 08:13 Dose: 1 mg Documented by: Lorazepam (Ativan) 0.5 mg PO BID@1200,1600 [facility] Last Admin: 09/20/19 15:20 Dose: 0.5 mg Documented by: Lorazepam (Ativan) 0.5 mg PO Q6H PRN PRN Reason: Anxiety Last Admin: 09/20/19 00:29 Dose: 0.5 mg Documented by: Losartan Potassium (Cozaar) 50 mg PO DAILY [facility] Last Admin: 09/21/19 08:11 Dose: 50 mg Documented by: Magnesium Oxide (Magnesium Oxide) 400 mg PO BID [facility] Last Admin: 09/21/19 08:11 Dose: 400 mg Documented by: Miscellaneous Information (Remove Patch) 1 ea TRDERM Q72H [facility] Last Admin: 09/21/19 08:14 Dose: 1 ea Documented by: Morphine Sulfate (Duramorph Pf) 5 mg EPIDUR Q6H PRN PRN Reason: Pain Last Admin: 09/20/19 22:11 Dose: 5 mg Documented by: Ondansetron HCl (Zofran Odt) 4 mg PO Q4H PRN PRN Reason: nausea, able to take PO Polyethylene Glycol (Miralax) 17 gm PO DAILY [facility] Last Admin: 09/21/19 08:13 Dose: 17 gm Documented by: Senna/Docusate Sodium (Senna Plus) 1 tab PO TID PRN PRN Reason: Constipation Last Admin: 09/20/19 15:20 Dose: 1 tab Documented by: Simvastatin (Zocor) 20 mg PO BEDTIME [facility] Last Admin: 09/20/19 20:29 Dose: 20 mg Documented by: Terazosin HCl (Hytrin) 5 mg PO BID [facility] Last Admin: 09/21/19 08:11 Dose: 5 mg Documented by: Trazodone HCl (Trazodone) 100 mg PO BEDTIME [facility] Last Admin: 09/20/19 20:24 Dose: 100 mg Documented by: Discontinued Medications Fentanyl (Duragesic) 75 mcg TRDERM Q72H [facility] Fentanyl/Bupivacaine HCl (Fentanyl/Bupivacaine/Ns 2 Mcg-0.125% 100 Ml) 100 ml EPIDUR ASDIRECTED PRN PRN Reason: Pain Last Admin: 09/20/19 08:22 Dose: 100 ml Documented by: Gabapentin (Neurontin) 200 mg PO TID [facility] Hydromorphone HCl (Dilaudid) 0.5 mg IVPUSH ONETIME ONE Stop: 09/16/19 21:03 Last Admin: 09/16/19 21:19 Dose: 0.5 mg Documented by: Hydromorphone HCl (Dilaudid) 1 mg IVPUSH Q2H PRN PRN Reason: Pain (severe 7-10) Last Admin: 09/18/19 09:22 Dose: 1 mg Documented by: Hydromorphone HCl (Dilaudid) 2 mg PO TID [facility] Last Admin: 09/21/19 08:12 Dose: 2 mg Documented by: Dextrose/Sodium Chloride (Dextrose 5%-Normal Saline) 1,000 mls @ 150 mls/hr IV ASDIRECTED [facility] Last Infusion: 09/17/19 00:05 Dose: 50 mls/hr Documented by: Dextrose/Sodium Chloride (Dextrose 5%-1/2 Ns) 1,000 mls @ 50 mls/hr IV ASDIRECTED [facility] Last Infusion: 09/18/19 08:55 Dose: 75 mls/hr Documented by: Magnesium Sulfate/Dextrose 1 (gm/ Premix) 100 mls @ 100 mls/hr IV Q1H ONE Stop: 09/20/19 18:14 Last Admin: 09/20/19 17:19 Dose: 100 mls/hr Documented by: Lidocaine/Epinephrine (Xylocaine-Mpf 1.5% W/Epinephrine 1:200,000) 5 ml .ROUTE .STK-MED ONE Stop: 09/17/19 16:01 Lorazepam (Ativan) 0.5 mg PO 1200,1600 [facility] Magnesium Oxide (Magnesium Oxide) 800 mg PO ONETIME ONE Stop: 09/18/19 08:46 Last Admin: 09/18/19 09:10 Dose: 800 mg Documented by: Morphine Sulfate (Duramorph Pf) Confirm Administered Dose 10 mg .ROUTE .STK-MED ONE Stop: 09/20/19 22:04 Ondansetron HCl (Zofran) 4 mg IVPUSH ONETIME ONE Stop: 09/16/19 21:03 Last Admin: 09/16/19 21:14 Dose: 4 mg Documented by: - Exam General: Alert, Oriented, Cooperative, Mild Distress Lungs: Clear to Auscultation, Normal Respiratory Effort, Other (left sided chest wall tenderness) Cardiovascular: Regular Rate, Regular Rhythm, No Murmurs Sepsis Event Note - Evaluation Sepsis Screening Result: No Definite Risk - Focused Exam Vital Signs: Vital Signs Temp Pulse Resp BP BP Pulse Ox 09/21/19 08:11 146/92 H 09/21/19 07:00 16 138/70 95 09/21/19 06:00 13 117/67 96 09/21/19 05:00 20 124/78 94 L 09/21/19 04:00 97.8 F 21 H 140/88 96 09/21/19 03:00 13 101/77 96 09/21/19 02:00 13 103/55 L 95 09/21/19 01:00 98 F 10 L 121/61 97 09/21/19 00:00 97.9 F 12 101/54 L 96 09/20/19 23:25 11 L 93 L 09/20/19 23:00 10 L 104/55 L 94 L 09/20/19 22:40 13 96 09/20/19 22:00 97.3 F 74 15 109/63 96 Date Exam was Performed: 09/21/19 Time Exam was Performed: 09:15 - Problem List Review Problem List Initiated/Reviewed/Updated: No - My Orders Last 24 Hours: My Active Orders 09/20/19 16:58 DC Morris Catheter [Urinary Catheter Removal] [RC] PER UNIT ROUTINE 09/21/19 08:25 Patient Status [ADT] Routine 09/21/19 08:41 Communication Order [RC] ASDIRECTED 09/21/19 09:00 Remove Patch 1 ea TRDERM Q72H 09/21/19 12:00 HYDROmorphone [Dilaudid] 2 mg PO Q4H - Assessment Assessment:: Left sided rib fractures s/p fall from standing onto a wooden chair on 09/15 - Plan Plan:: Pain - continue home dilaudid and fentanyl patch - Will increase epidural frequency to 2mg Q4H PRN to see if this will control his paqin - Hold duramorph at this time - If pain controlled by PO meds, then we can move him our of the ICU Psychiatric - Continue home parkinson's meds and all other meds - Patient is alert, oriented x 4 and appropriate on my exam this AM. I recommended he consider going to a longterm facility for rehab. he is agreeable to [facility]. Respiratory - Continue aggressive pulm hygiene including IS, iPAP, sitting upright. patient is doing well with this GI - regular diet - continue Miralax - No need for IVF - UA mixed. not concerning for acute infection, likely due to colonization. No need to actively treat - voiding spontaneously
[2019-09-21] MEDS ORDERED: HYDROmorphone 2 MG Tab PO PRN (09:25)
[2019-09-21] MEDS ORDERED: HYDROmorphone 2 MG Tab PO SCH ×2 (09:30→12:00)
[2019-09-21] MEDS: LORazepam 0.5 MG Tab PO SCH ×2 (12:21→16:22)
--- NOTE | 2019-09-21 15:46 | PCM48HPAN ---
Post Anesthesia Note - EVALUATION WITHIN 48HRS OF ANESTHETIC Vital Signs in Normal Range: Yes Patient Participated in Evaluation: Yes Respiratory Function Stable: Yes Airway Patent: Yes Cardiovascular Function Stable: Yes Hydration Status Stable: Yes Pain Control Satisfactory: Yes Nausea and Vomiting Control Satisfactory: Yes Mental Status Recovered: Yes Vital Signs: Last Vital Signs Temp 97.6 F 09/21/19 12:00 Pulse 57 L 09/21/19 01:00 Resp 17 09/21/19 12:00 BP 123/73 09/21/19 12:00 Pulse Ox 95 09/21/19 12:00 - COMMENTS/OBSERVATIONS Free Text/Narrative:: Assessment and re-evaluation of the patient with indwelling thoracic epidural catheter Patient is on her post-procedure day 4. Vitas signs stable. Thoracic epidural site intact. Epidural pump has been disconnected on 09/20/19 around 22:00 and no subsequest boluses of epidural Morphine were given per Dr. Beltre request. Patient is stable hemodynamically. No lower extremities weakness or numbness noted. Patient is up to the chair and may ambulate with assistance as tolerated. Plan is to remove epidural catheter tomorrow a.m. per Dr Beltre request. We will reevaluate the patient within the next 24 hours.
[2019-09-21] MEDS ORDERED: Magnesium Sulfate/Water 2 GM in Premix Bag 1 BAG IV ONE (16:15)
[2019-09-21] MEDS: Simvastatin 20 MG Tab PO SCH (20:34)
[2019-09-21] MEDS: Citalopram 20 MG Tab PO SCH (20:35)
[2019-09-21] MEDS: traZODone 50 MG Tab PO SCH (20:37)
[2019-09-22] MEDS: HYDROmorphone 2 MG Tab PO SCH ×5 (01:54→21:44)
[2019-09-22] MEDS: Dextrose 5%-0.45% NaCl 1,000 ML IV SCH (02:35)
[2019-09-22] MEDS: LORazepam 1 MG Tab PO PRN (04:15)
[2019-09-22] MEDS: LORazepam 1 MG Tab PO SCH ×2 (07:47→20:37)
[2019-09-22] MEDS: busPIRone 15 MG Tab PO SCH ×2 (08:15→20:30)
[2019-09-22] MEDS: Gabapentin 100 MG Cap PO SCH ×3 (08:15→20:31)
[2019-09-22] MEDS: Losartan 25 MG Tab PO SCH (08:16)
[2019-09-22] MEDS: Magnesium Oxide 400 MG Tab PO SCH ×2 (08:16→20:36)
[2019-09-22] MEDS: Celecoxib 100 MG Cap PO SCH (08:16)
[2019-09-22] MEDS: Carbidopa/Levodopa 25-100 MG Tab PO SCH ×4 (08:16→20:31)
[2019-09-22] MEDS: Cyclobenzaprine 10 MG Tab PO SCH ×3 (08:16→20:36)
[2019-09-22] MEDS: Terazosin 5 MG Cap PO SCH ×2 (08:16→20:33)
[2019-09-22] MEDS: Baclofen 10 MG Tab PO SCH ×4 (08:17→20:32)
[2019-09-22] MEDS: Polyethylene Glycol 3350 Powder 17 GM Packet PO SCH (08:19)
[2019-09-22] MEDS: Heparin Sodium 5,000 Units/ML Vial SUBCUT SCH ×3 (08:19→17:59)
[2019-09-22] MEDS: Diclofenac Sodium 1% Gel 100 GM Tube TOP SCH ×4 (08:19→20:37)
--- NOTE | 2019-09-22 08:48 | PCM48HPAN ---
Post Anesthesia Note - EVALUATION WITHIN 48HRS OF ANESTHETIC Vital Signs in Normal Range: Yes Patient Participated in Evaluation: Yes Respiratory Function Stable: Yes Airway Patent: Yes Cardiovascular Function Stable: Yes Hydration Status Stable: Yes Pain Control Satisfactory: Yes Nausea and Vomiting Control Satisfactory: Yes Mental Status Recovered: Yes Vital Signs: Last Vital Signs Temp 98.6 F 09/22/19 07:56 Pulse 79 09/22/19 04:00 Resp 16 09/22/19 07:56 BP 121/92 H 09/22/19 08:16 Pulse Ox 94 L 09/22/19 07:56 - COMMENTS/OBSERVATIONS Free Text/Narrative:: Assessment and re-evaluation of the patient with indwelling thoracic epidural catheter Patient is on her post-procedure day 5. Vitas signs stable. Patient is stable hemodynamically. No lower extremities weakness or numbness noted. Patient's a.m. Heparine dose has been on hold. Thoracic epidural catheter removed per Dr Beltre request as planned. Patient is up to the chair and may ambulate with assistance as tolerated. Heparin may be resumed at 11 am. This concludes anesthesia care for this patient. Vincent Lopez, [employer]
--- NOTE | 2019-09-22 12:06 | PCM.PN ---
- General Info Date of Service: 09/22/19 Admission Dx/Problem (Free Text): Fall with rib fxs, left Subjective Update: Patient is doing well today. On room air. pain is controlled. he is using incentive spirometer Functional Status: Reports: Pain Controlled, Tolerating Diet, Ambulating, Urinating - Review of Systems General: Reports: No Symptoms HEENT: Reports: No Symptoms Pulmonary: Reports: Other (left chest) Cardiovascular: Reports: No Symptoms Gastrointestinal: Reports: No Symptoms Genitourinary: Reports: No Symptoms Musculoskeletal: Reports: No Symptoms - Patient Data Vitals - Most Recent: Last Vital Signs Temp 98.6 F 09/22/19 07:56 Pulse 79 09/22/19 04:00 Resp 16 09/22/19 07:56 BP 121/92 H 09/22/19 08:16 Pulse Ox 94 L 09/22/19 07:56 Weight - Most Recent: 82.1 kg I&O - Last 24 Hours: Intake & Output 09/21/19 09/22/19 09/22/19 22:59 06:59 14:59 Intake Total 845 759 Output Total 1200 600 Balance -355 159 Lab Results Last 24 Hours: Laboratory Results - last 24 hr 09/21/19 09/21/19 Range/Units 11:41 11:41 WBC 5.03 (4.23-9.07) K/mm3 RBC 4.31 L (4.63-6.08) M/mm3 Hgb 12.4 L (13.7-17.5) gm/dl Hct 38.1 L (40.1-51.0) % MCV 88.4 (79.0-92.2) fl MCH 28.8 (25.7-32.2) pg MCHC 32.5 (32.2-35.5) g/dl RDW Std Deviation 39.0 (35.1-43.9) fL Plt Count 164 (163-337) K/mm3 MPV 11.5 (9.4-12.3) fl Neut % (Auto) 70.1 H (34.0-67.9) % Lymph % (Auto) 20.3 L (21.8-53.1) % Clinch % (Auto) 8.2 (5.3-12.2) % Eos % (Auto) 0.8 (0.8-7.0) Baso % (Auto) 0.4 (0.1-1.2) % Neut # (Auto) 3.53 (1.78-5.38) K/mm3 Lymph # (Auto) 1.02 L (1.32-3.57) K/mm3 Clinch # (Auto) 0.41 (0.30-0.82) K/mm3 Eos # (Auto) 0.04 (0.04-0.54) K/mm3 Baso # (Auto) 0.02 (0.01-0.08) K/mm3 Sodium 138 (136-145) mEq/L Potassium 3.9 (3.5-5.1) mEq/L Chloride 103 (98-107) mEq/L Carbon Dioxide 30 (21-32) mEq/L Anion Gap 8.9 (5-15) BUN 9 (7-18) mg/dL Creatinine 0.7 (0.7-1.3) mg/dL Est Cr Clr Drug Dosing TNP Estimated GFR (MDRD) > 60 (>60) mL/min BUN/Creatinine Ratio 12.9 L (14-18) Glucose 89 (80-115) mg/dL Calcium 8.5 (8.5-10.1) mg/dL Magnesium 1.6 L (1.8-2.4) mg/dl Rommel Results Last 24 Hours: Microbiology 09/17/19 11:33 Urine Culture - Final Urine, Morris Cath (Indwelling) Pseudomonas Aeruginosa Med Orders - Current: Current Medications Acetaminophen (Tylenol) 650 mg PO Q6H PRN PRN Reason: Pain Last Admin: 09/20/19 00:29 Dose: 650 mg Documented by: Albuterol (Proventil Neb Soln) 2.5 mg NEB Q2H PRN PRN Reason: Shortness Of Breath/wheezing Baclofen (Lioresal) 10 mg PO QID [facility] Last Admin: 09/22/19 08:17 Dose: 10 mg Documented by: Buspirone HCl (Buspar) 7.5 mg PO BID [facility] Last Admin: 09/22/19 08:15 Dose: 7.5 mg Documented by: Carbidopa/Levodopa (Sinemet 25-100 Mg) 1 tab PO QID [facility] Last Admin: 09/22/19 08:16 Dose: 1 tab Documented by: Celecoxib (Celebrex) 200 mg PO DAILY [facility] Last Admin: 09/22/19 08:16 Dose: 200 mg Documented by: Citalopram Hydrobromide (Celexa) 40 mg PO BEDTIME [facility] Last Admin: 09/21/19 20:35 Dose: 40 mg Documented by: Cyclobenzaprine HCl (Flexeril) 5 mg PO TID [facility] Last Admin: 09/22/19 08:16 Dose: 5 mg Documented by: Diclofenac Sodium (Voltaren 1% Gel) 2 gm TOP QID [facility] Last Admin: 09/22/19 08:19 Dose: 1 applic Documented by: Diphenhydramine HCl (Benadryl) 25 mg IVPUSH Q6H PRN PRN Reason: pruritis Last Admin: 09/18/19 22:18 Dose: 25 mg Documented by: Ephedrine Sulfate (Ephedrine Sulfate) 5 mg IVPUSH ASDIRECTED PRN PRN Reason: Hypotension Fentanyl (Duragesic) 75 mcg TRDERM Q72H [facility] Last Admin: 09/21/19 08:18 Dose: 75 mcg Documented by: Fentanyl (Sublimaze) 100 mcg EPIDUR Q3H PRN PRN Reason: Pain Last Admin: 09/20/19 10:44 Dose: 100 mcg Documented by: Gabapentin (Neurontin) 200 mg PO TID [facility] Last Admin: 09/22/19 08:15 Dose: 200 mg Documented by: Heparin Sodium (Porcine) (Heparin Sodium) 5,000 units SUBCUT Q8H [facility] Last Admin: 09/22/19 11:14 Dose: 5,000 units Documented by: Hydromorphone HCl (Dilaudid) 2 mg PO Q6H PRN PRN Reason: Pain Last Admin: 09/21/19 04:15 Dose: 2 mg Documented by: Hydromorphone HCl (Dilaudid) 2 mg PO Q6H [facility] Dextrose/Sodium Chloride (Dextrose 5%-1/2 Ns) 1,000 mls @ 50 mls/hr IV ASDIRECTED [facility] Last Admin: 09/22/19 02:35 Dose: 50 mls/hr Documented by: Lorazepam (Ativan) 1 mg PO Q8H PRN PRN Reason: Anxiety Last Admin: 09/22/19 04:15 Dose: 1 mg Documented by: Lorazepam (Ativan) 1 mg PO BID@0800,1999 [facility] Last Admin: 09/22/19 07:47 Dose: 1 mg Documented by: Lorazepam (Ativan) 0.5 mg PO BID@1200,1600 [facility] Last Admin: 09/21/19 16:22 Dose: 0.5 mg Documented by: Lorazepam (Ativan) 0.5 mg PO Q6H PRN PRN Reason: Anxiety Last Admin: 09/20/19 00:29 Dose: 0.5 mg Documented by: Losartan Potassium (Cozaar) 50 mg PO DAILY [facility] Last Admin: 09/22/19 08:16 Dose: 50 mg Documented by: Magnesium Oxide (Magnesium Oxide) 400 mg PO BID [facility] Last Admin: 09/22/19 08:16 Dose: 400 mg Documented by: Miscellaneous Information (Remove Patch) 1 ea TRDERM Q72H [facility] Last Admin: 09/21/19 08:14 Dose: 1 ea Documented by: Morphine Sulfate (Duramorph Pf) 5 mg EPIDUR Q6H PRN PRN Reason: Pain Last Admin: 09/20/19 22:11 Dose: 5 mg Documented by: Ondansetron HCl (Zofran Odt) 4 mg PO Q4H PRN PRN Reason: nausea, able to take PO Polyethylene Glycol (Miralax) 17 gm PO DAILY [facility] Last Admin: 09/22/19 08:19 Dose: 17 gm Documented by: Senna/Docusate Sodium (Senna Plus) 1 tab PO TID PRN PRN Reason: Constipation Last Admin: 09/22/19 08:15 Dose: 1 tab Documented by: Simvastatin (Zocor) 20 mg PO BEDTIME [facility] Last Admin: 09/21/19 20:34 Dose: 20 mg Documented by: Terazosin HCl (Hytrin) 5 mg PO BID [facility] Last Admin: 09/22/19 08:16 Dose: 5 mg Documented by: Trazodone HCl (Trazodone) 100 mg PO BEDTIME [facility] Last Admin: 09/21/19 20:37 Dose: 100 mg Documented by: Discontinued Medications Fentanyl (Duragesic) 75 mcg TRDERM Q72H [facility] Fentanyl/Bupivacaine HCl (Fentanyl/Bupivacaine/Ns 2 Mcg-0.125% 100 Ml) 100 ml EPIDUR ASDIRECTED PRN PRN Reason: Pain Last Admin: 09/20/19 08:22 Dose: 100 ml Documented by: Gabapentin (Neurontin) 200 mg PO TID [facility] Heparin Sodium (Porcine) (Heparin Sodium) 5,000 units SUBCUT Q8H [facility] Last Admin: 09/22/19 08:19 Dose: Not Given Documented by: Hydromorphone HCl (Dilaudid) 0.5 mg IVPUSH ONETIME ONE Stop: 09/16/19 21:03 Last Admin: 09/16/19 21:19 Dose: 0.5 mg Documented by: Hydromorphone HCl (Dilaudid) 1 mg IVPUSH Q2H PRN PRN Reason: Pain (severe 7-10) Last Admin: 09/18/19 09:22 Dose: 1 mg Documented by: Hydromorphone HCl (Dilaudid) 1 mg IVPUSH Q2H PRN PRN Reason: Pain (severe 7-10) Hydromorphone HCl (Dilaudid) 2 mg PO TID [facility] Last Admin: 09/21/19 08:12 Dose: 2 mg Documented by: Hydromorphone HCl (Dilaudid) 2 mg PO Q4H [facility] Hydromorphone HCl (Dilaudid) 2 mg PO Q4H PRN PRN Reason: Chest Pain Hydromorphone HCl (Dilaudid) 2 mg PO Q4H [facility] Hydromorphone HCl (Dilaudid) 2 mg PO Q4H [facility] Last Admin: 09/22/19 10:07 Dose: 2 mg Documented by: Dextrose/Sodium Chloride (Dextrose 5%-Normal Saline) 1,000 mls @ 150 mls/hr IV ASDIRECTED [facility] Last Infusion: 09/17/19 00:05 Dose: 50 mls/hr Documented by: Dextrose/Sodium Chloride (Dextrose 5%-1/2 Ns) 1,000 mls @ 50 mls/hr IV ASDIRECTED [facility] Last Infusion: 09/18/19 08:55 Dose: 75 mls/hr Documented by: Sodium Chloride (Normal Saline) 250 mls @ 249.723 mls/hr IV ASDIRECTED [facility] Magnesium Sulfate/Dextrose 1 (gm/ Premix) 100 mls @ 100 mls/hr IV Q1H ONE Stop: 09/20/19 18:14 Last Admin: 09/20/19 17:19 Dose: 100 mls/hr Documented by: Magnesium Sulfate 2 gm/ Premix 50 mls @ 25 mls/hr IV ONETIME ONE Stop: 09/21/19 18:14 Last Admin: 09/21/19 16:23 Dose: 25 mls/hr Documented by: Lidocaine/Epinephrine (Xylocaine-Mpf 1.5% W/Epinephrine 1:200,000) 5 ml .ROUTE .STK-MED ONE Stop: 09/17/19 16:01 Lorazepam (Ativan) 0.5 mg PO 1200,1600 [facility] Magnesium Oxide (Magnesium Oxide) 800 mg PO ONETIME ONE Stop: 09/18/19 08:46 Last Admin: 09/18/19 09:10 Dose: 800 mg Documented by: Morphine Sulfate (Duramorph Pf) Confirm Administered Dose 10 mg .ROUTE .STK-MED ONE Stop: 09/20/19 22:04 Ondansetron HCl (Zofran) 4 mg IVPUSH ONETIME ONE Stop: 09/16/19 21:03 Last Admin: 09/16/19 21:14 Dose: 4 mg Documented by: - Exam General: Alert, Oriented, Cooperative Lungs: Clear to Auscultation, Normal Respiratory Effort Cardiovascular: Regular Rate, Regular Rhythm, No Murmurs GI/Abdominal Exam: Soft, Non-Tender, No Organomegaly, No Distention Sepsis Event Note - Evaluation Sepsis Screening Result: No Definite Risk - Focused Exam Vital Signs: Vital Signs Temp Pulse Resp BP BP Pulse Ox 09/22/19 08:16 121/92 H 09/22/19 07:56 98.6 F 16 121/91 H 94 L 09/22/19 04:00 98.3 F 79 18 119/80 95 Date Exam was Performed: 09/22/19 Time Exam was Performed: 12:01 - Problem List Review Problem List Initiated/Reviewed/Updated: No - My Orders Last 24 Hours: My Active Orders 09/22/19 07:29 Patient Status [ADT] Routine 09/22/19 11:00 Heparin Sodium 5,000 units SUBCUT Q8H 09/22/19 16:00 HYDROmorphone [Dilaudid] 2 mg PO Q6H - Assessment Assessment:: Left sided rib fractures s/p fall from standing onto a wooden chair on 09/15 - Plan Plan:: Pain - continue home dilaudid and fentanyl patch - wean dilaudid to 2mg Q6H PRN - Epidural catheter discontinued today Psychiatric - Continue home parkinson's meds and all other meds - Patient is alert, oriented x 4 and appropriate on my exam this AM. I recommended he consider going to a prison facility for rehab. He is agreeable to go to [facility]. Respiratory - Continue aggressive pulm hygiene including IS, iPAP, sitting upright. patient is doing well with this GI - regular diet - continue Miralax - No need for IVF - UA mixed. not concerning for acute infection, likely due to colonization. No need to actively treat - voiding spontaneously ID - moderate exposure to Coronavirus. Will need to be quarantined for 14 days total (11 days left) - per report, the quarantine will be here in the hospital. I discussed this with the patient who verbalized understanding Dispo: Pending quarantine. Then will likely dc to SNF
[2019-09-22] MEDS ORDERED: Bisacodyl 10 MG Supp RECTAL PRN (12:14)
[2019-09-22] MEDS: LORazepam 0.5 MG Tab PO SCH ×2 (12:29→16:01)
[2019-09-22] MEDS: traZODone 50 MG Tab PO SCH (20:31)
[2019-09-22] MEDS: Simvastatin 20 MG Tab PO SCH (20:32)
[2019-09-22] MEDS: Citalopram 20 MG Tab PO SCH (20:32)
[2019-09-22] MEDS: Acetaminophen 325 MG Tab PO PRN (20:48)
[2019-09-23] MEDS: Heparin Sodium 5,000 Units/ML Vial SUBCUT SCH ×3 (04:20→18:16)
[2019-09-23] MEDS: HYDROmorphone 2 MG Tab PO SCH ×4 (04:21→21:50)
[2019-09-23] MEDS: Baclofen 10 MG Tab PO SCH ×4 (09:04→20:29)
[2019-09-23] MEDS: busPIRone 15 MG Tab PO SCH ×2 (09:04→20:28)
[2019-09-23] MEDS: Magnesium Oxide 400 MG Tab PO SCH ×2 (09:04→20:26)
[2019-09-23] MEDS: Carbidopa/Levodopa 25-100 MG Tab PO SCH ×4 (09:04→20:27)
[2019-09-23] MEDS: Celecoxib 100 MG Cap PO SCH (09:05)
[2019-09-23] MEDS: Cyclobenzaprine 10 MG Tab PO SCH ×3 (09:06→20:26)
[2019-09-23] MEDS: Gabapentin 100 MG Cap PO SCH ×3 (09:06→20:27)
[2019-09-23] MEDS: Terazosin 5 MG Cap PO SCH ×3 (09:06→21:58)
[2019-09-23] MEDS: Losartan 25 MG Tab PO SCH (09:06)
[2019-09-23] MEDS: Polyethylene Glycol 3350 Powder 17 GM Packet PO SCH (09:06)
[2019-09-23] MEDS: LORazepam 1 MG Tab PO SCH ×2 (09:06→20:26)
[2019-09-23] MEDS: Diclofenac Sodium 1% Gel 100 GM Tube TOP SCH ×4 (09:07→21:49)
[2019-09-23] MEDS: LORazepam 0.5 MG Tab PO SCH ×2 (12:01→15:04)
[2019-09-23] MEDS: Simvastatin 20 MG Tab PO SCH (20:27)
[2019-09-23] MEDS: traZODone 50 MG Tab PO SCH (20:28)
[2019-09-23] MEDS: Citalopram 20 MG Tab PO SCH (20:28)
[2019-09-23] MEDS: Acetaminophen 325 MG Tab PO PRN (22:00)
--- NOTE | 2019-09-24 02:02 | PCM.SN.2 ---
- Free Text/Narrative Note: I received a call that the patient was running a fever, blood pressure had dropped and had an episode of desaturation. I came to see the patient. Patient was sleeping, breathing through mouth. He does not have any new complaints except for left sided chest pain which is from the rib fractures. He denies any chills, sweats, SOB. On exam awake, alert and oriented normal respiration, CTAB, tender to palpation along the ribs, left chest. Using incentive spirometer to 1500cc Regular rate and rhythm We obtained chest Xray. I reviewed it, appears clear, there is slight blunting of left costophrenic angle Plan - Covid 19 PCR test - Labs - CBC, CMP, Lactate - Blood cultures - If WBC or Lactate is high, will start antibiotics - Will give 1L bolus now - Place him on tele/pulse ox
[2019-09-24] MEDS ORDERED: Sodium Chloride 0.9% 1,000 ML IV ONE (02:03)
[2019-09-24] MEDS: Heparin Sodium 5,000 Units/ML Vial SUBCUT SCH ×3 (02:47→18:24)
[2019-09-24] MEDS: HYDROmorphone 2 MG Tab PO SCH ×4 (04:34→21:12)
--- NOTE | 2019-09-24 08:15 | CR ---
Chest: Portable view of the chest was obtained. Comparison: Prior chest x-ray of 09/17/19. Slight blunting of the lateral left costophrenic angle is seen. Findings are felt compatible with slight pleural effusion. Mild atelectasis is also seen. Left lower rib fractures are seen. Heart size slightly enlarged. No definite pneumothorax is appreciated. Stable nodule within the right upper chest compatible with granuloma. Lungs otherwise are clear. Impression: 1. Small left-sided pleural effusion and mild left basilar atelectasis. This occurs in area of previous rib fractures. 2. Stable cardiomegaly with no other acute abnormality being seen. Diagnostic code #3 This report was dictated in MDT I agree with preliminary report from [facility], finalized on 09/24/19, 2:42 AM Central Daylight Time
[2019-09-24] MEDS: fentaNYL 75 MCG/HR Transdermal Patch TRDERM SCH (08:18)
[2019-09-24] MEDS: Polyethylene Glycol 3350 Powder 17 GM Packet PO SCH (08:19)
[2019-09-24] MEDS: busPIRone 15 MG Tab PO SCH ×2 (08:20→20:34)
[2019-09-24] MEDS: Baclofen 10 MG Tab PO SCH ×4 (08:21→20:39)
[2019-09-24] MEDS: Magnesium Oxide 400 MG Tab PO SCH ×2 (08:21→20:32)
[2019-09-24] MEDS: Terazosin 5 MG Cap PO SCH ×2 (08:21→20:37)
[2019-09-24] MEDS: Carbidopa/Levodopa 25-100 MG Tab PO SCH ×4 (08:21→20:37)
[2019-09-24] MEDS: Celecoxib 100 MG Cap PO SCH (08:22)
[2019-09-24] MEDS: Losartan 25 MG Tab PO SCH (08:22)
[2019-09-24] MEDS: Gabapentin 100 MG Cap PO SCH ×3 (08:22→20:32)
[2019-09-24] MEDS: LORazepam 1 MG Tab PO SCH ×2 (08:23→20:32)
[2019-09-24] MEDS: Cyclobenzaprine 10 MG Tab PO SCH ×3 (08:24→20:38)
[2019-09-24] MEDS: Diclofenac Sodium 1% Gel 100 GM Tube TOP SCH ×4 (08:26→21:11)
--- NOTE | 2019-09-24 08:26 | PCM.PN ---
- General Info Date of Service: 09/24/19 Admission Dx/Problem (Free Text): Fall with rib fxs, left Subjective Update: Patient had fever overnight as well as hypotension. Labs were sent. I reviewed the labs this AM, WBC, Lactate are normal. No more fevers. BP normalized after 1L bolus. Patient feeling a little tired this morning but no other issues. Pain is controlled. He is able to use incentive spirometer to 1500cc. No new symptoms. Functional Status: Reports: Pain Controlled, Tolerating Diet, Urinating - Review of Systems General: Reports: Fatigue HEENT: Reports: No Symptoms Pulmonary: Reports: No Symptoms Cardiovascular: Reports: Chest Pain (left sided rib pain) Gastrointestinal: Reports: No Symptoms Genitourinary: Reports: No Symptoms Musculoskeletal: Reports: No Symptoms Skin: Reports: No Symptoms Neurological: Reports: No Symptoms Psychiatric: Reports: No Symptoms - Patient Data Vitals - Most Recent: Last Vital Signs Temp 98.8 F 09/24/19 04:37 Pulse 71 09/24/19 04:37 Resp 18 09/24/19 04:37 BP 110/79 09/24/19 04:37 Pulse Ox 97 09/24/19 04:37 Weight - Most Recent: 83.234 kg I&O - Last 24 Hours: Intake & Output 09/23/19 09/24/19 09/24/19 22:59 06:59 14:59 Intake Total 1380 Output Total 300 Balance -300 1380 Lab Results Last 24 Hours: Laboratory Results - last 24 hr 09/24/19 09/24/19 09/24/19 Range/Units 01:50 01:58 01:58 WBC 4.14 L (4.23-9.07) K/mm3 RBC 3.75 L (4.63-6.08) M/mm3 Hgb 10.8 L D (13.7-17.5) gm/dl Hct 33.7 L (40.1-51.0) % MCV 89.9 (79.0-92.2) fl MCH 28.8 (25.7-32.2) pg MCHC 32.0 L (32.2-35.5) g/dl RDW Std Deviation 41.0 (35.1-43.9) fL Plt Count 115 L (163-337) K/mm3 MPV 11.1 (9.4-12.3) fl Neut % (Auto) 78.8 H (34.0-67.9) % Lymph % (Auto) 14.7 L (21.8-53.1) % [place] % (Auto) 6.3 (5.3-12.2) % Eos % (Auto) 0 L (0.8-7.0) Baso % (Auto) 0.2 (0.1-1.2) % Neut # (Auto) 3.26 (1.78-5.38) K/mm3 Lymph # (Auto) 0.61 L (1.32-3.57) K/mm3 [place] # (Auto) 0.26 L (0.30-0.82) K/mm3 Eos # (Auto) 0.00 L (0.04-0.54) K/mm3 Baso # (Auto) 0.01 (0.01-0.08) K/mm3 Sodium 134 L (136-145) mEq/L Potassium 4.0 (3.5-5.1) mEq/L Chloride 101 (98-107) mEq/L Carbon Dioxide 28 (21-32) mEq/L Anion Gap 9.0 (5-15) BUN 21 H (7-18) mg/dL Creatinine 1.0 (0.7-1.3) mg/dL Est Cr Clr Drug Dosing 84.07 mL/min Estimated GFR (MDRD) > 60 (>60) mL/min BUN/Creatinine Ratio 21.0 H (14-18) Glucose 97 (80-115) mg/dL Lactic Acid (0.4-2.0) mmol/L Calcium 8.1 L (8.5-10.1) mg/dL Total Bilirubin 0.9 (0.2-1.0) mg/dL AST 39 H (15-37) U/L ALT 23 (16-63) U/L Alkaline Phosphatase 50 (46-116) U/L Total Protein 5.8 L (6.4-8.2) g/dl Albumin 2.6 L (3.4-5.0) g/dl Globulin 3.2 gm/dL Albumin/Globulin Ratio 0.8 L (1-2) SARS Virus RNA (PCR) Negative (NEGATIVE) 09/24/19 Range/Units 01:58 WBC (4.23-9.07) K/mm3 RBC (4.63-6.08) M/mm3 Hgb (13.7-17.5) gm/dl Hct (40.1-51.0) % MCV (79.0-92.2) fl MCH (25.7-32.2) pg MCHC (32.2-35.5) g/dl RDW Std Deviation (35.1-43.9) fL Plt Count (163-337) K/mm3 MPV (9.4-12.3) fl Neut % (Auto) (34.0-67.9) % Lymph % (Auto) (21.8-53.1) % [place] % (Auto) (5.3-12.2) % Eos % (Auto) (0.8-7.0) Baso % (Auto) (0.1-1.2) % Neut # (Auto) (1.78-5.38) K/mm3 Lymph # (Auto) (1.32-3.57) K/mm3 [place] # (Auto) (0.30-0.82) K/mm3 Eos # (Auto) (0.04-0.54) K/mm3 Baso # (Auto) (0.01-0.08) K/mm3 Sodium (136-145) mEq/L Potassium (3.5-5.1) mEq/L Chloride (98-107) mEq/L Carbon Dioxide (21-32) mEq/L Anion Gap (5-15) BUN (7-18) mg/dL Creatinine (0.7-1.3) mg/dL Est Cr Clr Drug Dosing mL/min Estimated GFR (MDRD) (>60) mL/min BUN/Creatinine Ratio (14-18) Glucose (80-115) mg/dL Lactic Acid 0.6 (0.4-2.0) mmol/L Calcium (8.5-10.1) mg/dL Total Bilirubin (0.2-1.0) mg/dL AST (15-37) U/L ALT (16-63) U/L Alkaline Phosphatase (46-116) U/L Total Protein (6.4-8.2) g/dl Albumin (3.4-5.0) g/dl Globulin gm/dL Albumin/Globulin Ratio (1-2) SARS Virus RNA (PCR) (NEGATIVE) Med Orders - Current: Current Medications Acetaminophen (Tylenol) 650 mg PO Q6H PRN PRN Reason: Pain Last Admin: 09/23/19 22:00 Dose: 650 mg Documented by: Albuterol (Proventil Neb Soln) 2.5 mg NEB Q2H PRN PRN Reason: Shortness Of Breath/wheezing Baclofen (Lioresal) 10 mg PO QID [facility] Last Admin: 09/23/19 20:29 Dose: 10 mg Documented by: Bisacodyl (Dulcolax) 10 mg RECTAL DAILY PRN PRN Reason: Constipation Buspirone HCl (Buspar) 7.5 mg PO BID [facility] Last Admin: 09/23/19 20:28 Dose: 7.5 mg Documented by: Carbidopa/Levodopa (Sinemet 25-100 Mg) 1 tab PO QID [facility] Last Admin: 09/23/19 20:27 Dose: 1 tab Documented by: Celecoxib (Celebrex) 200 mg PO DAILY [facility] Last Admin: 09/23/19 09:05 Dose: 200 mg Documented by: Citalopram Hydrobromide (Celexa) 40 mg PO BEDTIME [facility] Last Admin: 09/23/19 20:28 Dose: 40 mg Documented by: Cyclobenzaprine HCl (Flexeril) 5 mg PO TID [facility] Last Admin: 09/23/19 20:26 Dose: 5 mg Documented by: Diclofenac Sodium (Voltaren 1% Gel) 2 gm TOP QID [facility] Last Admin: 09/23/19 21:49 Dose: 2 gm Documented by: Diphenhydramine HCl (Benadryl) 25 mg IVPUSH Q6H PRN PRN Reason: pruritis Last Admin: 09/18/19 22:18 Dose: 25 mg Documented by: Fentanyl (Duragesic) 75 mcg TRDERM Q72H [facility] Last Admin: 09/21/19 08:18 Dose: 75 mcg Documented by: Gabapentin (Neurontin) 200 mg PO TID [facility] Last Admin: 09/23/19 20:27 Dose: 200 mg Documented by: Heparin Sodium (Porcine) (Heparin Sodium) 5,000 units SUBCUT Q8H [facility] Last Admin: 09/24/19 02:47 Dose: 5,000 units Documented by: Hydromorphone HCl (Dilaudid) 2 mg PO Q6H PRN PRN Reason: Pain Last Admin: 09/21/19 04:15 Dose: 2 mg Documented by: Hydromorphone HCl (Dilaudid) 2 mg PO Q6H [facility] Last Admin: 09/24/19 04:34 Dose: 2 mg Documented by: Lorazepam (Ativan) 1 mg PO Q8H PRN PRN Reason: Anxiety Last Admin: 09/22/19 04:15 Dose: 1 mg Documented by: Lorazepam (Ativan) 1 mg PO BID@0800,2000 [facility] Last Admin: 09/23/19 20:26 Dose: 1 mg Documented by: Lorazepam (Ativan) 0.5 mg PO BID@1200,1600 [facility] Last Admin: 09/23/19 15:04 Dose: 0.5 mg Documented by: Lorazepam (Ativan) 0.5 mg PO Q6H PRN PRN Reason: Anxiety Last Admin: 09/20/19 00:29 Dose: 0.5 mg Documented by: Losartan Potassium (Cozaar) 50 mg PO DAILY [facility] Last Admin: 09/23/19 09:06 Dose: 50 mg Documented by: Magnesium Oxide (Magnesium Oxide) 400 mg PO BID [facility] Last Admin: 09/23/19 20:26 Dose: 400 mg Documented by: Miscellaneous Information (Remove Patch) 1 ea TRDERM Q72H [facility] Last Admin: 09/21/19 08:14 Dose: 1 ea Documented by: Ondansetron HCl (Zofran Odt) 4 mg PO Q4H PRN PRN Reason: nausea, able to take PO Polyethylene Glycol (Miralax) 17 gm PO DAILY [facility] Last Admin: 09/23/19 09:06 Dose: 17 gm Documented by: Senna/Docusate Sodium (Senna Plus) 1 tab PO TID PRN PRN Reason: Constipation Last Admin: 09/22/19 08:15 Dose: 1 tab Documented by: Simvastatin (Zocor) 20 mg PO BEDTIME [facility] Last Admin: 09/23/19 20:27 Dose: 20 mg Documented by: Terazosin HCl (Hytrin) 5 mg PO BID [facility] Last Admin: 09/23/19 21:58 Dose: Not Given Documented by: Trazodone HCl (Trazodone) 100 mg PO BEDTIME [facility] Last Admin: 09/23/19 20:28 Dose: 100 mg Documented by: Discontinued Medications Ephedrine Sulfate (Ephedrine Sulfate) 5 mg IVPUSH ASDIRECTED PRN PRN Reason: Hypotension Fentanyl (Sublimaze) 100 mcg EPIDUR Q3H PRN PRN Reason: Pain Last Admin: 09/20/19 10:44 Dose: 100 mcg Documented by: Fentanyl (Duragesic) 75 mcg TRDERM Q72H [facility] Fentanyl/Bupivacaine HCl (Fentanyl/Bupivacaine/Ns 2 Mcg-0.125% 100 Ml) 100 ml EPIDUR ASDIRECTED PRN PRN Reason: Pain Last Admin: 09/20/19 08:22 Dose: 100 ml Documented by: Gabapentin (Neurontin) 200 mg PO TID [facility] Heparin Sodium (Porcine) (Heparin Sodium) 5,000 units SUBCUT Q8H [facility] Last Admin: 09/22/19 08:19 Dose: Not Given Documented by: Hydromorphone HCl (Dilaudid) 0.5 mg IVPUSH ONETIME ONE Stop: 09/16/19 21:03 Last Admin: 09/16/19 21:19 Dose: 0.5 mg Documented by: Hydromorphone HCl (Dilaudid) 1 mg IVPUSH Q2H PRN PRN Reason: Pain (severe 7-10) Last Admin: 09/18/19 09:22 Dose: 1 mg Documented by: Hydromorphone HCl (Dilaudid) 1 mg IVPUSH Q2H PRN PRN Reason: Pain (severe 7-10) Hydromorphone HCl (Dilaudid) 2 mg PO TID [facility] Last Admin: 09/21/19 08:12 Dose: 2 mg Documented by: Hydromorphone HCl (Dilaudid) 2 mg PO Q4H [facility] Hydromorphone HCl (Dilaudid) 2 mg PO Q4H PRN PRN Reason: Chest Pain Hydromorphone HCl (Dilaudid) 2 mg PO Q4H [facility] Hydromorphone HCl (Dilaudid) 2 mg PO Q4H [facility] Last Admin: 09/22/19 10:07 Dose: 2 mg Documented by: Dextrose/Sodium Chloride (Dextrose 5%-Normal Saline) 1,000 mls @ 150 mls/hr IV ASDIRECTED [facility] Last Infusion: 09/17/19 00:05 Dose: 50 mls/hr Documented by: Dextrose/Sodium Chloride (Dextrose 5%-1/2 Ns) 1,000 mls @ 50 mls/hr IV ASDIRECTED [facility] Last Infusion: 09/18/19 08:55 Dose: 75 mls/hr Documented by: Sodium Chloride (Normal Saline) 250 mls @ 249.723 mls/hr IV ASDIRECTED [facility] Dextrose/Sodium Chloride (Dextrose 5%-1/2 Ns) 1,000 mls @ 50 mls/hr IV ASDIRECTED [facility] Last Admin: 09/22/19 02:35 Dose: 50 mls/hr Documented by: Magnesium Sulfate/Dextrose 1 (gm/ Premix) 100 mls @ 100 mls/hr IV Q1H ONE Stop: 09/20/19 18:14 Last Admin: 09/20/19 17:19 Dose: 100 mls/hr Documented by: Magnesium Sulfate 2 gm/ Premix 50 mls @ 25 mls/hr IV ONETIME ONE Stop: 09/21/19 18:14 Last Admin: 09/21/19 16:23 Dose: 25 mls/hr Documented by: Sodium Chloride (Normal Saline) 1,000 mls @ 500 mls/hr IV ONETIME ONE Stop: 09/24/19 04:02 Last Admin: 09/24/19 02:47 Dose: 500 mls/hr Documented by: Lidocaine/Epinephrine (Xylocaine-Mpf 1.5% W/Epinephrine 1:200,000) 5 ml .ROUTE .STK-MED ONE Stop: 09/17/19 16:01 Lorazepam (Ativan) 0.5 mg PO 1200,1600 [facility] Magnesium Oxide (Magnesium Oxide) 800 mg PO ONETIME ONE Stop: 09/18/19 08:46 Last Admin: 09/18/19 09:10 Dose: 800 mg Documented by: Morphine Sulfate (Duramorph Pf) 5 mg EPIDUR Q6H PRN PRN Reason: Pain Last Admin: 09/20/19 22:11 Dose: 5 mg Documented by: Morphine Sulfate (Duramorph Pf) Confirm Administered Dose 10 mg .ROUTE .STK-MED ONE Stop: 09/20/19 22:04 Ondansetron HCl (Zofran) 4 mg IVPUSH ONETIME ONE Stop: 09/16/19 21:03 Last Admin: 09/16/19 21:14 Dose: 4 mg Documented by: - Exam Quality Assessment: Supplemental Oxygen (2-3 L by nasal cannula) General: Alert, Oriented Lungs: Normal Respiratory Effort, Other (left chest wall tenderness) Cardiovascular: Regular Rate, Regular Rhythm Sepsis Event Note - Evaluation Sepsis Screening Result: No Definite Risk - Focused Exam Vital Signs: Vital Signs Temp Pulse Resp BP Pulse Ox Pulse Ox 09/24/19 04:37 98.8 F 71 18 110/79 97 09/24/19 02:57 98.8 F 68 18 83/58 L 92 L 09/24/19 02:09 94 L 09/24/19 00:22 99.9 F 72 18 92/54 L 93 L 09/23/19 23:34 92 L 09/23/19 23:26 73 94 L 09/23/19 23:16 100.8 F H 78 18 91/51 L 84 L 09/23/19 22:03 100.4 F 09/23/19 22:00 100.9 F H 09/23/19 21:58 97/55 L Date Exam was Performed: 09/24/19 Time Exam was Performed: 08:17 - Problem List Review Problem List Initiated/Reviewed/Updated: No - My Orders Last 24 Hours: My Active Orders 09/24/19 01:53 Patient Status [ADT] Routine Pulse Oximetry Continuous Monitoring [OM.PC] Routine 09/24/19 01:58 CULTURE BLOOD [BC] Stat - Assessment Assessment:: Left sided rib fractures s/p fall from standing onto a wooden chair on 09/15 - Plan Plan:: Pain - continue home dilaudid and fentanyl patch - Continue PO dilaudid to 2mg Q6H PRN Psychiatric - Continue home Parkinson's meds and all other meds per psyshiatry - Patient is alert, oriented x 4 and appropriate on my exam this AM. I recommended he consider going to a correction facility for rehab. He is agreeable to go to [facility]. Cardiovascular - continue to monitor for signs of hypoperfusion. so far there are none - encourage fluid intake. Respiratory - Continue aggressive pulm hygiene including IS, sitting upright. patient is doing well with this GI - regular diet - continue Miralax - No need for IVF - UA mixed. not concerning for acute infection, likely due to colonization. No need to actively treat - voiding spontaneously ID - Coronavirus test negative - fevers have resolved. - WBC is normal, lactate normal - No concern for active infection right now. We will continue to monitor Dispo: Then will likely dc to SNF when medically ready
[2019-09-24] MEDS: LORazepam 0.5 MG Tab PO SCH ×2 (12:14→16:13)
[2019-09-24] MEDS: traZODone 50 MG Tab PO SCH (20:38)
[2019-09-24] MEDS: Simvastatin 20 MG Tab PO SCH (20:39)
[2019-09-24] MEDS: Citalopram 20 MG Tab PO SCH (20:39)
[2019-09-25] MEDS: Heparin Sodium 5,000 Units/ML Vial SUBCUT SCH ×3 (03:08→19:33)
[2019-09-25] MEDS: HYDROmorphone 2 MG Tab PO SCH ×4 (03:08→21:17)
[2019-09-25] MEDS: Polyethylene Glycol 3350 Powder 17 GM Packet PO SCH (09:19)
[2019-09-25] MEDS: Diclofenac Sodium 1% Gel 100 GM Tube TOP SCH ×4 (09:19→20:16)
[2019-09-25] MEDS: Magnesium Oxide 400 MG Tab PO SCH ×2 (09:19→20:14)
[2019-09-25] MEDS: Gabapentin 100 MG Cap PO SCH ×3 (09:20→20:12)
[2019-09-25] MEDS: LORazepam 1 MG Tab PO SCH ×2 (09:20→20:12)
[2019-09-25] MEDS: Celecoxib 100 MG Cap PO SCH (09:20)
[2019-09-25] MEDS: Carbidopa/Levodopa 25-100 MG Tab PO SCH ×4 (09:20→20:13)
[2019-09-25] MEDS: Baclofen 10 MG Tab PO SCH ×4 (09:20→20:11)
[2019-09-25] MEDS: busPIRone 15 MG Tab PO SCH ×2 (09:21→20:11)
[2019-09-25] MEDS: Cyclobenzaprine 10 MG Tab PO SCH ×3 (09:21→20:13)
[2019-09-25] MEDS: Terazosin 5 MG Cap PO SCH ×2 (09:28→20:17)
[2019-09-25] MEDS: Losartan 25 MG Tab PO SCH (09:28)
--- NOTE | 2019-09-25 11:18 | PCM.PN ---
- General Info Date of Service: 09/25/19 Admission Dx/Problem (Free Text): Fall with rib fxs, left Subjective Update: Patient is doing well. He does not have any complaints today. He is tolerating diet and using incentive spirometer. Pain is controlled. Functional Status: Reports: Pain Controlled, Tolerating Diet, Urinating - Review of Systems General: Reports: No Symptoms HEENT: Reports: No Symptoms Pulmonary: Reports: No Symptoms, Other (left chest pain due to rib fractures) Cardiovascular: Reports: No Symptoms Gastrointestinal: Reports: No Symptoms Genitourinary: Reports: No Symptoms Musculoskeletal: Reports: No Symptoms Skin: Reports: No Symptoms Neurological: Reports: No Symptoms - Patient Data Vitals - Most Recent: Last Vital Signs Temp 99.0 F 09/25/19 09:29 Pulse 93 09/25/19 09:34 Resp 16 09/25/19 09:29 BP 114/68 09/25/19 09:29 Pulse Ox 92 L 09/25/19 09:34 Weight - Most Recent: 82.735 kg I&O - Last 24 Hours: Intake & Output 09/24/19 09/25/19 09/25/19 22:59 06:59 14:59 Intake Total 1400 300 Output Total 350 800 Balance 1050 -500 [place] Results Last 24 Hours: Microbiology 09/24/19 01:58 Aerobic Blood Culture - Preliminary Blood NO GROWTH AFTER 1 DAY Anaerobic Blood Culture - Preliminary NO GROWTH AFTER 1 DAY Med Orders - Current: Current Medications Acetaminophen (Tylenol) 650 mg PO Q6H PRN PRN Reason: Pain Last Admin: 09/23/19 22:00 Dose: 650 mg Documented by: Albuterol (Proventil Neb Soln) 2.5 mg NEB Q2H PRN PRN Reason: Shortness Of Breath/wheezing Baclofen (Lioresal) 10 mg PO QID [facility] Last Admin: 09/25/19 09:20 Dose: 10 mg Documented by: Bisacodyl (Dulcolax) 10 mg RECTAL DAILY PRN PRN Reason: Constipation Buspirone HCl (Buspar) 7.5 mg PO BID [facility] Last Admin: 09/25/19 09:21 Dose: 7.5 mg Documented by: Carbidopa/Levodopa (Sinemet 25-100 Mg) 1 tab PO QID [facility] Last Admin: 09/25/19 09:20 Dose: 1 tab Documented by: Celecoxib (Celebrex) 200 mg PO DAILY [facility] Last Admin: 09/25/19 09:20 Dose: 200 mg Documented by: Citalopram Hydrobromide (Celexa) 40 mg PO BEDTIME [facility] Last Admin: 09/24/19 20:39 Dose: 40 mg Documented by: Cyclobenzaprine HCl (Flexeril) 5 mg PO TID [facility] Last Admin: 09/25/19 09:21 Dose: 5 mg Documented by: Diclofenac Sodium (Voltaren 1% Gel) 2 gm TOP QID [facility] Last Admin: 09/25/19 09:19 Dose: 2 gm Documented by: Diphenhydramine HCl (Benadryl) 25 mg IVPUSH Q6H PRN PRN Reason: pruritis Last Admin: 09/18/19 22:18 Dose: 25 mg Documented by: Fentanyl (Duragesic) 75 mcg TRDERM Q72H [facility] Last Admin: 09/24/19 08:18 Dose: 75 mcg Documented by: Gabapentin (Neurontin) 200 mg PO TID [facility] Last Admin: 09/25/19 09:20 Dose: 200 mg Documented by: Heparin Sodium (Porcine) (Heparin Sodium) 5,000 units SUBCUT Q8H [facility] Last Admin: 09/25/19 03:08 Dose: 5,000 units Documented by: Hydromorphone HCl (Dilaudid) 2 mg PO Q6H PRN PRN Reason: Pain Last Admin: 09/21/19 04:15 Dose: 2 mg Documented by: Hydromorphone HCl (Dilaudid) 2 mg PO Q6H [facility] Last Admin: 09/25/19 09:21 Dose: 2 mg Documented by: Lorazepam (Ativan) 1 mg PO Q8H PRN PRN Reason: Anxiety Last Admin: 09/22/19 04:15 Dose: 1 mg Documented by: Lorazepam (Ativan) 1 mg PO BID@0800,2000 [facility] Last Admin: 09/25/19 09:20 Dose: 1 mg Documented by: Lorazepam (Ativan) 0.5 mg PO BID@1200,1600 [facility] Last Admin: 09/24/19 16:13 Dose: 0.5 mg Documented by: Lorazepam (Ativan) 0.5 mg PO Q6H PRN PRN Reason: Anxiety Last Admin: 09/20/19 00:29 Dose: 0.5 mg Documented by: Losartan Potassium (Cozaar) 50 mg PO DAILY [facility] Last Admin: 09/25/19 09:28 Dose: 50 mg Documented by: Magnesium Oxide (Magnesium Oxide) 400 mg PO BID [facility] Last Admin: 09/25/19 09:19 Dose: 400 mg Documented by: Miscellaneous Information (Remove Patch) 1 ea TRDERM Q72H [facility] Last Admin: 09/24/19 08:24 Dose: 1 ea Documented by: Ondansetron HCl (Zofran Odt) 4 mg PO Q4H PRN PRN Reason: nausea, able to take PO Polyethylene Glycol (Miralax) 17 gm PO DAILY [facility] Last Admin: 09/25/19 09:19 Dose: 17 gm Documented by: Senna/Docusate Sodium (Senna Plus) 1 tab PO TID PRN PRN Reason: Constipation Last Admin: 09/22/19 08:15 Dose: 1 tab Documented by: Simvastatin (Zocor) 20 mg PO BEDTIME [facility] Last Admin: 09/24/19 20:39 Dose: 20 mg Documented by: Terazosin HCl (Hytrin) 5 mg PO BID [facility] Last Admin: 09/25/19 09:28 Dose: 5 mg Documented by: Trazodone HCl (Trazodone) 100 mg PO BEDTIME [facility] Last Admin: 09/24/19 20:38 Dose: 100 mg Documented by: Discontinued Medications Ephedrine Sulfate (Ephedrine Sulfate) 5 mg IVPUSH ASDIRECTED PRN PRN Reason: Hypotension Fentanyl (Sublimaze) 100 mcg EPIDUR Q3H PRN PRN Reason: Pain Last Admin: 09/20/19 10:44 Dose: 100 mcg Documented by: Fentanyl (Duragesic) 75 mcg TRDERM Q72H [facility] Fentanyl/Bupivacaine HCl (Fentanyl/Bupivacaine/Ns 2 Mcg-0.125% 100 Ml) 100 ml EPIDUR ASDIRECTED PRN PRN Reason: Pain Last Admin: 09/20/19 08:22 Dose: 100 ml Documented by: Gabapentin (Neurontin) 200 mg PO TID [facility] Heparin Sodium (Porcine) (Heparin Sodium) 5,000 units SUBCUT Q8H [facility] Last Admin: 09/22/19 08:19 Dose: Not Given Documented by: Hydromorphone HCl (Dilaudid) 0.5 mg IVPUSH ONETIME ONE Stop: 09/16/19 21:03 Last Admin: 09/16/19 21:19 Dose: 0.5 mg Documented by: Hydromorphone HCl (Dilaudid) 1 mg IVPUSH Q2H PRN PRN Reason: Pain (severe 7-10) Last Admin: 09/18/19 09:22 Dose: 1 mg Documented by: Hydromorphone HCl (Dilaudid) 1 mg IVPUSH Q2H PRN PRN Reason: Pain (severe 7-10) Hydromorphone HCl (Dilaudid) 2 mg PO TID [facility] Last Admin: 09/21/19 08:12 Dose: 2 mg Documented by: Hydromorphone HCl (Dilaudid) 2 mg PO Q4H [facility] Hydromorphone HCl (Dilaudid) 2 mg PO Q4H PRN PRN Reason: Chest Pain Hydromorphone HCl (Dilaudid) 2 mg PO Q4H [facility] Hydromorphone HCl (Dilaudid) 2 mg PO Q4H [facility] Last Admin: 09/22/19 10:07 Dose: 2 mg Documented by: Dextrose/Sodium Chloride (Dextrose 5%-Normal Saline) 1,000 mls @ 150 mls/hr IV ASDIRECTED [facility] Last Infusion: 09/17/19 00:05 Dose: 50 mls/hr Documented by: Dextrose/Sodium Chloride (Dextrose 5%-1/2 Ns) 1,000 mls @ 50 mls/hr IV ASDIRECTED [facility] Last Infusion: 09/18/19 08:55 Dose: 75 mls/hr Documented by: Sodium Chloride (Normal Saline) 250 mls @ 249.723 mls/hr IV ASDIRECTED [facility] Dextrose/Sodium Chloride (Dextrose 5%-1/2 Ns) 1,000 mls @ 50 mls/hr IV ASDIRECTED [facility] Last Admin: 09/22/19 02:35 Dose: 50 mls/hr Documented by: Magnesium Sulfate/Dextrose 1 (gm/ Premix) 100 mls @ 100 mls/hr IV Q1H ONE Stop: 09/20/19 18:14 Last Admin: 09/20/19 17:19 Dose: 100 mls/hr Documented by: Magnesium Sulfate 2 gm/ Premix 50 mls @ 25 mls/hr IV ONETIME ONE Stop: 09/21/19 18:14 Last Admin: 09/21/19 16:23 Dose: 25 mls/hr Documented by: Sodium Chloride (Normal Saline) 1,000 mls @ 500 mls/hr IV ONETIME ONE Stop: 09/24/19 04:02 Last Admin: 09/24/19 02:47 Dose: 500 mls/hr Documented by: Lidocaine/Epinephrine (Xylocaine-Mpf 1.5% W/Epinephrine 1:200,000) 5 ml .ROUTE .STK-MED ONE Stop: 09/17/19 16:01 Lorazepam (Ativan) 0.5 mg PO 1200,1600 [facility] Magnesium Oxide (Magnesium Oxide) 800 mg PO ONETIME ONE Stop: 09/18/19 08:46 Last Admin: 09/18/19 09:10 Dose: 800 mg Documented by: Morphine Sulfate (Duramorph Pf) 5 mg EPIDUR Q6H PRN PRN Reason: Pain Last Admin: 09/20/19 22:11 Dose: 5 mg Documented by: Morphine Sulfate (Duramorph Pf) Confirm Administered Dose 10 mg .ROUTE .STK-MED ONE Stop: 09/20/19 22:04 Ondansetron HCl (Zofran) 4 mg IVPUSH ONETIME ONE Stop: 09/16/19 21:03 Last Admin: 09/16/19 21:14 Dose: 4 mg Documented by: - Exam General: Alert, Oriented, Cooperative Lungs: Clear to Auscultation, Other (left chest tenderness) Cardiovascular: Regular Rate, Regular Rhythm GI/Abdominal Exam: Soft, Non-Tender, No Organomegaly, No Distention Sepsis Event Note - Evaluation Sepsis Screening Result: No Definite Risk - Focused Exam Vital Signs: Vital Signs Temp Pulse Resp BP Pulse Ox 09/25/19 09:34 93 92 L 09/25/19 09:29 99.0 F 16 114/68 09/25/19 09:28 114/68 09/25/19 03:07 98.1 F 66 14 97/52 L 90 L 09/25/19 00:28 97.2 F 58 L 12 89/59 L 91 L Date Exam was Performed: 09/25/19 Time Exam was Performed: 11:16 - Problem List Review Problem List Initiated/Reviewed/Updated: No - Assessment Assessment:: Left sided rib fractures s/p fall from standing onto a wooden chair on 09/15 - Plan Plan:: Pain - continue home dilaudid and fentanyl patch - Continue PO dilaudid to 2mg Q6H PRN Psychiatric - Continue home Parkinson's meds and all other meds per psyshiatry - Patient is alert, oriented x 4 and appropriate on my exam this AM. I recommended he consider going to a [facility] facility for rehab. He is agreeable to go to [facility]. Cardiovascular - continue to monitor for signs of hypoperfusion. so far there are none - encourage fluid intake. Respiratory - Continue aggressive pulm hygiene including IS, sitting upright. patient is doing well with this GI - regular diet - continue Miralax - No need for IVF - UA mixed. not concerning for acute infection, likely due to colonization. No need to actively treat - voiding spontaneously ID - Coronavirus test negative - fevers have resolved. - WBC is normal, lactate normal - No concern for active infection right now. We will continue to monitor Dispo: Then will likely dc to SNF when medically ready
[2019-09-25] MEDS: LORazepam 0.5 MG Tab PO SCH ×2 (12:33→15:59)
[2019-09-25] MEDS: Citalopram 20 MG Tab PO SCH (20:10)
[2019-09-25] MEDS: traZODone 50 MG Tab PO SCH (20:10)
[2019-09-25] MEDS: Simvastatin 20 MG Tab PO SCH (20:10)
[2019-09-26] MEDS: HYDROmorphone 2 MG Tab PO PRN ×2 (02:25→08:20)
[2019-09-26] MEDS: Heparin Sodium 5,000 Units/ML Vial SUBCUT SCH ×3 (02:25→18:48)
[2019-09-26] MEDS: LORazepam 1 MG Tab PO PRN (02:48)
[2019-09-26] MEDS: HYDROmorphone 2 MG Tab PO SCH ×4 (07:46→22:27)
[2019-09-26] MEDS: Magnesium Oxide 400 MG Tab PO SCH ×2 (08:07→19:59)
[2019-09-26] MEDS: LORazepam 1 MG Tab PO SCH ×2 (08:07→19:59)
[2019-09-26] MEDS: Cyclobenzaprine 10 MG Tab PO SCH ×3 (08:08→19:48)
[2019-09-26] MEDS: Baclofen 10 MG Tab PO SCH ×4 (08:08→19:50)
[2019-09-26] MEDS: Gabapentin 100 MG Cap PO SCH ×2 (08:08→16:02)
[2019-09-26] MEDS: Celecoxib 100 MG Cap PO SCH (08:09)
[2019-09-26] MEDS: Polyethylene Glycol 3350 Powder 17 GM Packet PO SCH (08:10)
[2019-09-26] MEDS: Carbidopa/Levodopa 25-100 MG Tab PO SCH ×4 (08:10→19:57)
[2019-09-26] MEDS: Diclofenac Sodium 1% Gel 100 GM Tube TOP SCH ×4 (08:10→22:30)
[2019-09-26] MEDS: busPIRone 15 MG Tab PO SCH ×2 (08:10→19:57)
[2019-09-26] MEDS: Losartan 25 MG Tab PO SCH (08:20)
[2019-09-26] MEDS: Terazosin 5 MG Cap PO SCH ×2 (08:20→19:54)
[2019-09-26] MEDS: LORazepam 0.5 MG Tab PO SCH ×2 (11:36→16:02)
[2019-09-26] MEDS: Simvastatin 20 MG Tab PO SCH (19:53)
[2019-09-26] MEDS: Citalopram 20 MG Tab PO SCH (19:53)
[2019-09-26] MEDS: traZODone 50 MG Tab PO SCH (19:57)
[2019-09-27] MEDS: Citalopram 20 MG Tab PO SCH ×2 (00:14→20:57)
[2019-09-27] MEDS: busPIRone 15 MG Tab PO SCH ×3 (00:14→20:58)
[2019-09-27] MEDS: Cyclobenzaprine 10 MG Tab PO SCH ×4 (00:14→20:55)
[2019-09-27] MEDS: Carbidopa/Levodopa 25-100 MG Tab PO SCH ×5 (00:15→20:56)
[2019-09-27] MEDS: Baclofen 10 MG Tab PO SCH ×5 (00:15→20:55)
[2019-09-27] MEDS: Gabapentin 100 MG Cap PO SCH ×4 (00:15→20:58)
[2019-09-27] MEDS: Terazosin 5 MG Cap PO SCH ×3 (00:15→20:56)
[2019-09-27] MEDS: Simvastatin 20 MG Tab PO SCH ×2 (00:16→20:59)
[2019-09-27] MEDS: traZODone 50 MG Tab PO SCH ×2 (00:16→20:58)
[2019-09-27] MEDS: HYDROmorphone 2 MG Tab PO SCH ×4 (03:31→21:04)
[2019-09-27] MEDS: Heparin Sodium 5,000 Units/ML Vial SUBCUT SCH ×3 (03:32→18:18)
[2019-09-27] MEDS: LORazepam 1 MG Tab PO PRN (04:44)
[2019-09-27] MEDS: HYDROmorphone 2 MG Tab PO PRN (06:34)
[2019-09-27] MEDS: Polyethylene Glycol 3350 Powder 17 GM Packet PO SCH (09:11)
[2019-09-27] MEDS: Celecoxib 100 MG Cap PO SCH (09:12)
[2019-09-27] MEDS: Magnesium Oxide 400 MG Tab PO SCH ×2 (09:13→20:58)
[2019-09-27] MEDS: Losartan 25 MG Tab PO SCH (09:13)
[2019-09-27] MEDS: Diclofenac Sodium 1% Gel 100 GM Tube TOP SCH ×4 (09:14→20:58)
[2019-09-27] MEDS: fentaNYL 75 MCG/HR Transdermal Patch TRDERM SCH (09:14)
[2019-09-27] MEDS: LORazepam 1 MG Tab PO SCH ×2 (09:14→20:57)
[2019-09-27] MEDS: LORazepam 0.5 MG Tab PO SCH ×2 (12:44→16:23)
--- NOTE | 2019-09-27 13:41 | PCM.PN ---
- General Info Date of Service: 09/27/19 Admission Dx/Problem (Free Text): Fall with rib fxs, left Subjective Update: Patient is doing well. He continues to have significant pain and required Dilaudid this morning. Functional Status: Denies: Pain Controlled - Review of Systems General: Reports: No Symptoms HEENT: Reports: No Symptoms Pulmonary: Reports: No Symptoms Cardiovascular: Reports: No Symptoms Gastrointestinal: Reports: No Symptoms Musculoskeletal: Reports: Other (rib pain) Neurological: Reports: No Symptoms Psychiatric: Reports: No Symptoms - Patient Data Vitals - Most Recent: Last Vital Signs Temp 98.1 F 09/27/19 11:33 Pulse 85 09/27/19 11:33 Resp 20 09/27/19 11:33 BP 127/74 09/27/19 11:33 Pulse Ox 95 09/27/19 11:33 Weight - Most Recent: 82.236 kg I&O - Last 24 Hours: Intake & Output 09/26/19 09/27/19 09/27/19 22:59 06:59 14:59 Intake Total 1220 200 120 Output Total 400 450 Balance 820 -250 120 Rommel Results Last 24 Hours: Microbiology 09/24/19 01:58 Aerobic Blood Culture - Preliminary Blood NO GROWTH AFTER 3 DAYS Anaerobic Blood Culture - Preliminary NO GROWTH AFTER 3 DAYS Med Orders - Current: Current Medications Acetaminophen (Tylenol) 650 mg PO Q6H PRN PRN Reason: Pain Last Admin: 09/23/19 22:00 Dose: 650 mg Documented by: Albuterol (Proventil Neb Soln) 2.5 mg NEB Q2H PRN PRN Reason: Shortness Of Breath/wheezing Baclofen (Lioresal) 10 mg PO QID [facility] Last Admin: 09/27/19 12:44 Dose: 10 mg Documented by: Bisacodyl (Dulcolax) 10 mg RECTAL DAILY PRN PRN Reason: Constipation Buspirone HCl (Buspar) 15 mg PO BID [facility] Last Admin: 09/27/19 09:12 Dose: 15 mg Documented by: Carbidopa/Levodopa (Sinemet 25-100 Mg) 1 tab PO QID [facility] Last Admin: 09/27/19 12:44 Dose: 1 tab Documented by: Celecoxib (Celebrex) 200 mg PO DAILY [facility] Last Admin: 09/27/19 09:12 Dose: 200 mg Documented by: Citalopram Hydrobromide (Celexa) 40 mg PO BEDTIME [facility] Last Admin: 09/27/19 00:14 Dose: Not Given Documented by: Cyclobenzaprine HCl (Flexeril) 5 mg PO TID [facility] Last Admin: 09/27/19 09:12 Dose: 5 mg Documented by: Diclofenac Sodium (Voltaren 1% Gel) 2 gm TOP QID [facility] Last Admin: 09/27/19 12:44 Dose: 2 gm Documented by: Diphenhydramine HCl (Benadryl) 25 mg IVPUSH Q6H PRN PRN Reason: pruritis Last Admin: 09/18/19 22:18 Dose: 25 mg Documented by: Fentanyl (Duragesic) 75 mcg TRDERM Q72H [facility] Last Admin: 09/27/19 09:14 Dose: 75 mcg Documented by: Gabapentin (Neurontin) 200 mg PO TID [facility] Last Admin: 09/27/19 09:14 Dose: 200 mg Documented by: Heparin Sodium (Porcine) (Heparin Sodium) 5,000 units SUBCUT Q8H [facility] Last Admin: 09/27/19 12:43 Dose: 5,000 units Documented by: Hydromorphone HCl (Dilaudid) 2 mg PO Q6H PRN PRN Reason: Pain Last Admin: 09/27/19 06:34 Dose: 2 mg Documented by: Hydromorphone HCl (Dilaudid) 2 mg PO Q6H [facility] Last Admin: 09/27/19 09:13 Dose: 2 mg Documented by: Lorazepam (Ativan) 1 mg PO Q8H PRN PRN Reason: Anxiety Last Admin: 09/27/19 04:44 Dose: 1 mg Documented by: Lorazepam (Ativan) 1 mg PO BID@0800,2000 [facility] Last Admin: 09/27/19 09:14 Dose: 1 mg Documented by: Lorazepam (Ativan) 0.5 mg PO BID@1200,1600 [facility] Last Admin: 09/27/19 12:44 Dose: 0.5 mg Documented by: Lorazepam (Ativan) 0.5 mg PO Q6H PRN PRN Reason: Anxiety Last Admin: 09/20/19 00:29 Dose: 0.5 mg Documented by: Losartan Potassium (Cozaar) 50 mg PO DAILY [facility] Last Admin: 09/27/19 09:13 Dose: 50 mg Documented by: Magnesium Oxide (Magnesium Oxide) 400 mg PO BID [facility] Last Admin: 09/27/19 09:13 Dose: 400 mg Documented by: Miscellaneous Information (Remove Patch) 1 ea TRDERM Q72H [facility] Last Admin: 09/27/19 09:15 Dose: 1 ea Documented by: Ondansetron HCl (Zofran Odt) 4 mg PO Q4H PRN PRN Reason: nausea, able to take PO Polyethylene Glycol (Miralax) 17 gm PO DAILY [facility] Last Admin: 09/27/19 09:11 Dose: 17 gm Documented by: Senna/Docusate Sodium (Senna Plus) 1 tab PO TID PRN PRN Reason: Constipation Last Admin: 09/25/19 20:14 Dose: 1 tab Documented by: Simvastatin (Zocor) 20 mg PO BEDTIME [facility] Last Admin: 09/27/19 00:16 Dose: Not Given Documented by: Terazosin HCl (Hytrin) 5 mg PO BID [facility] Last Admin: 09/27/19 09:12 Dose: 5 mg Documented by: Trazodone HCl (Trazodone) 100 mg PO BEDTIME [facility] Last Admin: 09/27/19 00:16 Dose: Not Given Documented by: Discontinued Medications Buspirone HCl (Buspar) 7.5 mg PO BID [facility] Last Admin: 09/25/19 09:21 Dose: 7.5 mg Documented by: Ephedrine Sulfate (Ephedrine Sulfate) 5 mg IVPUSH ASDIRECTED PRN PRN Reason: Hypotension Fentanyl (Sublimaze) 100 mcg EPIDUR Q3H PRN PRN Reason: Pain Last Admin: 09/20/19 10:44 Dose: 100 mcg Documented by: Fentanyl (Duragesic) 75 mcg TRDERM Q72H [facility] Fentanyl/Bupivacaine HCl (Fentanyl/Bupivacaine/Ns 2 Mcg-0.125% 100 Ml) 100 ml EPIDUR ASDIRECTED PRN PRN Reason: Pain Last Admin: 09/20/19 08:22 Dose: 100 ml Documented by: Gabapentin (Neurontin) 200 mg PO TID [facility] Heparin Sodium (Porcine) (Heparin Sodium) 5,000 units SUBCUT Q8H [facility] Last Admin: 09/22/19 08:19 Dose: Not Given Documented by: Hydromorphone HCl (Dilaudid) 0.5 mg IVPUSH ONETIME ONE Stop: 07/30/20 21:03 Last Admin: 09/16/19 21:19 Dose: 0.5 mg Documented by: Hydromorphone HCl (Dilaudid) 1 mg IVPUSH Q2H PRN PRN Reason: Pain (severe 7-10) Last Admin: 09/18/19 09:22 Dose: 1 mg Documented by: Hydromorphone HCl (Dilaudid) 1 mg IVPUSH Q2H PRN PRN Reason: Pain (severe 7-10) Hydromorphone HCl (Dilaudid) 2 mg PO TID [facility] Last Admin: 09/21/19 08:12 Dose: 2 mg Documented by: Hydromorphone HCl (Dilaudid) 2 mg PO Q4H [facility] Hydromorphone HCl (Dilaudid) 2 mg PO Q4H PRN PRN Reason: Chest Pain Hydromorphone HCl (Dilaudid) 2 mg PO Q4H [facility] Hydromorphone HCl (Dilaudid) 2 mg PO Q4H [facility] Last Admin: 09/22/19 10:07 Dose: 2 mg Documented by: Dextrose/Sodium Chloride (Dextrose 5%-Normal Saline) 1,000 mls @ 150 mls/hr IV ASDIRECTED [facility] Last Infusion: 09/17/19 00:05 Dose: 50 mls/hr Documented by: Dextrose/Sodium Chloride (Dextrose 5%-1/2 Ns) 1,000 mls @ 50 mls/hr IV ASDIRECTED [facility] Last Infusion: 09/18/19 08:55 Dose: 75 mls/hr Documented by: Sodium Chloride (Normal Saline) 250 mls @ 249.723 mls/hr IV ASDIRECTED [facility] Dextrose/Sodium Chloride (Dextrose 5%-1/2 Ns) 1,000 mls @ 50 mls/hr IV ASDIRECTED [facility] Last Admin: 09/22/19 02:35 Dose: 50 mls/hr Documented by: Magnesium Sulfate/Dextrose 1 (gm/ Premix) 100 mls @ 100 mls/hr IV Q1H ONE Stop: 09/20/19 18:14 Last Admin: 09/20/19 17:19 Dose: 100 mls/hr Documented by: Magnesium Sulfate 2 gm/ Premix 50 mls @ 25 mls/hr IV ONETIME ONE Stop: 09/21/19 18:14 Last Admin: 09/21/19 16:23 Dose: 25 mls/hr Documented by: Sodium Chloride (Normal Saline) 1,000 mls @ 500 mls/hr IV ONETIME ONE Stop: 09/24/19 04:02 Last Admin: 09/24/19 02:47 Dose: 500 mls/hr Documented by: Lidocaine/Epinephrine (Xylocaine-Mpf 1.5% W/Epinephrine 1:200,000) 5 ml .ROUTE .STK-MED ONE Stop: 09/17/19 16:01 Lorazepam (Ativan) 0.5 mg PO 1200,1600 [facility] Magnesium Oxide (Magnesium Oxide) 800 mg PO ONETIME ONE Stop: 09/18/19 08:46 Last Admin: 09/18/19 09:10 Dose: 800 mg Documented by: Morphine Sulfate (Duramorph Pf) 5 mg EPIDUR Q6H PRN PRN Reason: Pain Last Admin: 09/20/19 22:11 Dose: 5 mg Documented by: Morphine Sulfate (Duramorph Pf) Confirm Administered Dose 10 mg .ROUTE .STK-MED ONE Stop: 09/20/19 22:04 Ondansetron HCl (Zofran) 4 mg IVPUSH ONETIME ONE Stop: 09/16/19 21:03 Last Admin: 09/16/19 21:14 Dose: 4 mg Documented by: - Exam General: Alert, Oriented HEENT: Pupils Equal, Mucous Membr. Moist/[place] Neck: Supple Lungs: Clear to Auscultation, Normal Respiratory Effort Cardiovascular: Regular Rate, Regular Rhythm GI/Abdominal Exam: Normal Bowel Sounds, Soft, Non-Tender, No Organomegaly, No Distention, No Abnormal Bruit, No Mass, Pelvis Stable Extremities: Normal Inspection, Normal Range of Motion, Non-Tender, No Pedal Edema, Normal Capillary Refill Skin: Warm, Dry, Intact Neurological: No New Focal Deficit Psy/Mental Status: Alert, Normal Affect, Normal Mood Sepsis Event Note - Evaluation Sepsis Screening Result: No Definite Risk - Focused Exam Vital Signs: Vital Signs Temp Pulse Resp BP Pulse Ox 09/27/19 11:33 98.1 F 85 20 127/74 95 09/27/19 09:13 140/81 09/27/19 09:12 140/81 09/27/19 08:15 98.1 F 84 20 140/81 90 L 09/27/19 03:39 98.1 F 78 20 121/79 93 L Date Exam was Performed: 09/27/19 Time Exam was Performed: 13:34 - Problem List Review Problem List Initiated/Reviewed/Updated: Yes - Assessment Assessment:: Left sided rib fractures s/p fall from standing onto a wooden chair on 09/15 - no change Parkinson's disease - Plan Plan:: Pain - continue home dilaudid and fentanyl patch - Continue PO dilaudid to 2mg Q6H PRN Psychiatric - Continue home Parkinson's meds and all other meds per psyshiatry - Patient is alert, oriented x 4 and appropriate on my exam this AM. I recommended he consider going to a senior care facility for rehab. He is agreeable to go to [facility]. - He was exposed to COVID, making it necessary to stay hospitalized during his quarantine. Cardiovascular - continue to monitor for signs of hypoperfusion. Doing well. - encourage fluid intake. Respiratory - Continue aggressive pulm hygiene including IS, sitting upright. patient is doing well with this GI - regular diet - continue Miralax - No need for IVF - UA mixed. not concerning for acute infection, likely due to colonization. No need to actively treat - voiding spontaneously ID - Coronavirus test negative on 09/15 and 09/23 - fevers have resolved. - WBC is normal, lactate normal - No concern for active infection right now. We will continue to monitor Dispo: Then will likely dc to SNF when medically ready CBC, CMP, Mag in am
[2019-09-28] MEDS: LORazepam 0.5 MG Tab PO PRN (04:01)
[2019-09-28] MEDS: HYDROmorphone 2 MG Tab PO SCH ×4 (04:02→20:59)
[2019-09-28] MEDS: Cyclobenzaprine 10 MG Tab PO SCH ×3 (08:18→20:33)
[2019-09-28] MEDS: Magnesium Oxide 400 MG Tab PO SCH ×2 (08:19→20:38)
[2019-09-28] MEDS: Terazosin 5 MG Cap PO SCH ×2 (08:20→20:34)
[2019-09-28] MEDS: LORazepam 1 MG Tab PO SCH ×2 (08:20→20:33)
[2019-09-28] MEDS: Losartan 25 MG Tab PO SCH (08:20)
[2019-09-28] MEDS: Celecoxib 100 MG Cap PO SCH (08:21)
[2019-09-28] MEDS: Baclofen 10 MG Tab PO SCH ×4 (08:21→20:39)
[2019-09-28] MEDS: busPIRone 15 MG Tab PO SCH ×2 (08:21→20:39)
[2019-09-28] MEDS: Carbidopa/Levodopa 25-100 MG Tab PO SCH ×4 (08:21→20:39)
[2019-09-28] MEDS: Diclofenac Sodium 1% Gel 100 GM Tube TOP SCH ×4 (08:22→20:39)
[2019-09-28] MEDS: Gabapentin 100 MG Cap PO SCH ×3 (08:22→20:38)
[2019-09-28] MEDS: Polyethylene Glycol 3350 Powder 17 GM Packet PO SCH (08:22)
[2019-09-28] MEDS: Enoxaparin 40 MG/0.4 ML Syringe SUBCUT SCH (08:22)
--- NOTE | 2019-09-28 11:49 | PCM.PN ---
- General Info Date of Service: 09/28/19 Admission Dx/Problem (Free Text): Fall with rib fxs, left Subjective Update: He continues to c/o pain. No PRN pain meds overnight. Appetite is good. - Review of Systems General: Reports: No Symptoms HEENT: Reports: No Symptoms Pulmonary: Reports: No Symptoms Cardiovascular: Reports: No Symptoms Gastrointestinal: Reports: No Symptoms Musculoskeletal: Reports: No Symptoms Neurological: Reports: No Symptoms Psychiatric: Reports: No Symptoms - Patient Data Vitals - Most Recent: Last Vital Signs Temp 97.9 F 09/28/19 08:02 Pulse 79 09/28/19 08:02 Resp 16 09/28/19 08:02 BP 123/77 09/28/19 08:20 Pulse Ox 93 L 09/28/19 08:02 Weight - Most Recent: 78.834 kg I&O - Last 24 Hours: Intake & Output 09/27/19 09/28/19 09/28/19 22:59 06:59 14:59 Intake Total 1060 100 Output Total 850 470 Balance 210 -470 100 Lab Results Last 24 Hours: Laboratory Results - last 24 hr 09/28/19 09/28/19 Range/Units 05:27 05:27 WBC 4.39 (4.23-9.07) K/mm3 RBC 3.98 L (4.63-6.08) M/mm3 Hgb 11.3 L (13.7-17.5) gm/dl Hct 35.3 L (40.1-51.0) % MCV 88.7 (79.0-92.2) fl MCH 28.4 (25.7-32.2) pg MCHC 32.0 L (32.2-35.5) g/dl RDW Std Deviation 39.8 (35.1-43.9) fL Plt Count 179 (163-337) K/mm3 MPV 10.9 (9.4-12.3) fl Neut % (Auto) 41.0 (34.0-67.9) % Lymph % (Auto) 32.3 (21.8-53.1) % [place] % (Auto) 14.8 H (5.3-12.2) % Eos % (Auto) 9.8 H (0.8-7.0) Baso % (Auto) 0.7 (0.1-1.2) % Neut # (Auto) 1.80 (1.78-5.38) K/mm3 Lymph # (Auto) 1.42 (1.32-3.57) K/mm3 [place] # (Auto) 0.65 (0.30-0.82) K/mm3 Eos # (Auto) 0.43 (0.04-0.54) K/mm3 Baso # (Auto) 0.03 (0.01-0.08) K/mm3 Sodium 140 (136-145) mEq/L Potassium 3.9 (3.5-5.1) mEq/L Chloride 104 (98-107) mEq/L Carbon Dioxide 29 (21-32) mEq/L Anion Gap 10.9 (5-15) BUN 9 (7-18) mg/dL Creatinine 0.8 (0.7-1.3) mg/dL Est Cr Clr Drug Dosing 105.08 mL/min Estimated GFR (MDRD) > 60 (>60) mL/min BUN/Creatinine Ratio 11.3 L (14-18) Glucose 83 (80-115) mg/dL Calcium 8.8 (8.5-10.1) mg/dL Magnesium 1.9 (1.8-2.4) mg/dl Total Bilirubin 0.4 (0.2-1.0) mg/dL AST 31 (15-37) U/L ALT 15 L (16-63) U/L Alkaline Phosphatase 77 (46-116) U/L Total Protein 6.1 L (6.4-8.2) g/dl Albumin 2.8 L (3.4-5.0) g/dl Globulin 3.3 gm/dL Albumin/Globulin Ratio 0.9 L (1-2) Rommel Results Last 24 Hours: Microbiology 09/24/19 01:58 Aerobic Blood Culture - Preliminary Blood NO GROWTH AFTER 4 DAYS Anaerobic Blood Culture - Preliminary NO GROWTH AFTER 4 DAYS Med Orders - Current: Current Medications Acetaminophen (Tylenol) 650 mg PO Q6H PRN PRN Reason: Pain Last Admin: 09/23/19 22:00 Dose: 650 mg Documented by: Albuterol (Proventil Neb Soln) 2.5 mg NEB Q2H PRN PRN Reason: Shortness Of Breath/wheezing Baclofen (Lioresal) 10 mg PO QID [facility] Last Admin: 09/28/19 08:21 Dose: 10 mg Documented by: Bisacodyl (Dulcolax) 10 mg RECTAL DAILY PRN PRN Reason: Constipation Buspirone HCl (Buspar) 15 mg PO BID [facility] Last Admin: 09/28/19 08:21 Dose: 15 mg Documented by: Carbidopa/Levodopa (Sinemet 25-100 Mg) 1 tab PO QID [facility] Last Admin: 09/28/19 08:21 Dose: 1 tab Documented by: Celecoxib (Celebrex) 200 mg PO DAILY [facility] Last Admin: 09/28/19 08:21 Dose: 200 mg Documented by: Citalopram Hydrobromide (Celexa) 40 mg PO BEDTIME [facility] Last Admin: 09/27/19 20:57 Dose: 40 mg Documented by: Cyclobenzaprine HCl (Flexeril) 5 mg PO TID [facility] Last Admin: 09/28/19 08:18 Dose: 5 mg Documented by: Diclofenac Sodium (Voltaren 1% Gel) 2 gm TOP QID [facility] Last Admin: 09/28/19 08:22 Dose: 2 gm Documented by: Diphenhydramine HCl (Benadryl) 25 mg IVPUSH Q6H PRN PRN Reason: pruritis Last Admin: 09/18/19 22:18 Dose: 25 mg Documented by: Enoxaparin Sodium (Lovenox) 40 mg SUBCUT DAILY [facility] Last Admin: 09/28/19 08:22 Dose: 40 mg Documented by: Fentanyl (Duragesic) 75 mcg TRDERM Q72H [facility] Last Admin: 09/27/19 09:14 Dose: 75 mcg Documented by: Gabapentin (Neurontin) 200 mg PO TID [facility] Last Admin: 09/28/19 08:22 Dose: 200 mg Documented by: Hydromorphone HCl (Dilaudid) 2 mg PO Q6H PRN PRN Reason: Pain Last Admin: 09/27/19 06:34 Dose: 2 mg Documented by: Hydromorphone HCl (Dilaudid) 2 mg PO Q6H [facility] Last Admin: 09/28/19 09:57 Dose: 2 mg Documented by: Lorazepam (Ativan) 1 mg PO Q8H PRN PRN Reason: Anxiety Last Admin: 09/27/19 04:44 Dose: 1 mg Documented by: Lorazepam (Ativan) 1 mg PO BID@0800,2000 [facility] Last Admin: 09/28/19 08:20 Dose: 1 mg Documented by: Lorazepam (Ativan) 0.5 mg PO BID@1200,1600 [facility] Last Admin: 09/27/19 16:23 Dose: 0.5 mg Documented by: Lorazepam (Ativan) 0.5 mg PO Q6H PRN PRN Reason: Anxiety Last Admin: 09/28/19 04:01 Dose: 0.5 mg Documented by: Losartan Potassium (Cozaar) 50 mg PO DAILY [facility] Last Admin: 09/28/19 08:20 Dose: 50 mg Documented by: Magnesium Oxide (Magnesium Oxide) 400 mg PO BID [facility] Last Admin: 09/28/19 08:19 Dose: 400 mg Documented by: Miscellaneous Information (Remove Patch) 1 ea TRDERM Q72H [facility] Last Admin: 09/27/19 09:15 Dose: 1 ea Documented by: Ondansetron HCl (Zofran Odt) 4 mg PO Q4H PRN PRN Reason: nausea, able to take PO Polyethylene Glycol (Miralax) 17 gm PO DAILY [facility] Last Admin: 09/28/19 08:22 Dose: Not Given Documented by: Senna/Docusate Sodium (Senna Plus) 1 tab PO TID PRN PRN Reason: Constipation Last Admin: 09/25/19 20:14 Dose: 1 tab Documented by: Simvastatin (Zocor) 20 mg PO BEDTIME [facility] Last Admin: 09/27/19 20:59 Dose: 20 mg Documented by: Terazosin HCl (Hytrin) 5 mg PO BID [facility] Last Admin: 09/28/19 08:20 Dose: 5 mg Documented by: Trazodone HCl (Trazodone) 100 mg PO BEDTIME [facility] Last Admin: 09/27/19 20:58 Dose: 100 mg Documented by: Discontinued Medications Buspirone HCl (Buspar) 7.5 mg PO BID [facility] Last Admin: 09/25/19 09:21 Dose: 7.5 mg Documented by: Ephedrine Sulfate (Ephedrine Sulfate) 5 mg IVPUSH ASDIRECTED PRN PRN Reason: Hypotension Fentanyl (Sublimaze) 100 mcg EPIDUR Q3H PRN PRN Reason: Pain Last Admin: 09/20/19 10:44 Dose: 100 mcg Documented by: Fentanyl (Duragesic) 75 mcg TRDERM Q72H [facility] Fentanyl/Bupivacaine HCl (Fentanyl/Bupivacaine/Ns 2 Mcg-0.125% 100 Ml) 100 ml EPIDUR ASDIRECTED PRN PRN Reason: Pain Last Admin: 09/20/19 08:22 Dose: 100 ml Documented by: Gabapentin (Neurontin) 200 mg PO TID [facility] Heparin Sodium (Porcine) (Heparin Sodium) 5,000 units SUBCUT Q8H [facility] Last Admin: 09/22/19 08:19 Dose: Not Given Documented by: Heparin Sodium (Porcine) (Heparin Sodium) 5,000 units SUBCUT Q8H [facility] Last Admin: 09/27/19 18:18 Dose: 5,000 units Documented by: Hydromorphone HCl (Dilaudid) 0.5 mg IVPUSH ONETIME ONE Stop: 09/16/19 21:03 Last Admin: 09/16/19 21:19 Dose: 0.5 mg Documented by: Hydromorphone HCl (Dilaudid) 1 mg IVPUSH Q2H PRN PRN Reason: Pain (severe 7-10) Last Admin: 09/18/19 09:22 Dose: 1 mg Documented by: Hydromorphone HCl (Dilaudid) 1 mg IVPUSH Q2H PRN PRN Reason: Pain (severe 7-10) Hydromorphone HCl (Dilaudid) 2 mg PO TID [facility] Last Admin: 09/21/19 08:12 Dose: 2 mg Documented by: Hydromorphone HCl (Dilaudid) 2 mg PO Q4H [facility] Hydromorphone HCl (Dilaudid) 2 mg PO Q4H PRN PRN Reason: Chest Pain Hydromorphone HCl (Dilaudid) 2 mg PO Q4H [facility] Hydromorphone HCl (Dilaudid) 2 mg PO Q4H [facility] Last Admin: 09/22/19 10:07 Dose: 2 mg Documented by: Dextrose/Sodium Chloride (Dextrose 5%-Normal Saline) 1,000 mls @ 150 mls/hr IV ASDIRECTED [facility] Last Infusion: 09/17/19 00:05 Dose: 50 mls/hr Documented by: Dextrose/Sodium Chloride (Dextrose 5%-1/2 Ns) 1,000 mls @ 50 mls/hr IV ASDIRECTED [facility] Last Infusion: 09/18/19 08:55 Dose: 75 mls/hr Documented by: Sodium Chloride (Normal Saline) 250 mls @ 249.723 mls/hr IV ASDIRECTED [facility] Dextrose/Sodium Chloride (Dextrose 5%-1/2 Ns) 1,000 mls @ 50 mls/hr IV DIRECTED [facility] Last Admin: 09/22/19 02:35 Dose: 50 mls/hr Documented by: Magnesium Sulfate/Dextrose 1 (gm/ Premix) 100 mls @ 100 mls/hr IV Q1H ONE Stop: 09/20/19 18:14 Last Admin: 09/20/19 17:19 Dose: 100 mls/hr Documented by: Magnesium Sulfate 2 gm/ Premix 50 mls @ 25 mls/hr IV ONETIME ONE Stop: 09/21/19 18:14 Last Admin: 09/21/19 16:23 Dose: 25 mls/hr Documented by: Sodium Chloride (Normal Saline) 1,000 mls @ 500 mls/hr IV ONETIME ONE Stop: 09/24/19 04:02 Last Admin: 09/24/19 02:47 Dose: 500 mls/hr Documented by: Lidocaine/Epinephrine (Xylocaine-Mpf 1.5% W/Epinephrine 1:200,000) 5 ml .ROUTE .STK-MED ONE Stop: 09/17/19 16:01 Lorazepam (Ativan) 0.5 mg PO 1200,1600 [facility] Magnesium Oxide (Magnesium Oxide) 800 mg PO ONETIME ONE Stop: 09/18/19 08:46 Last Admin: 09/18/19 09:10 Dose: 800 mg Documented by: Morphine Sulfate (Duramorph Pf) 5 mg EPIDUR Q6H PRN PRN Reason: Pain Last Admin: 09/20/19 22:11 Dose: 5 mg Documented by: Morphine Sulfate (Duramorph Pf) Confirm Administered Dose 10 mg .ROUTE .STK-MED ONE Stop: 09/20/19 22:04 Ondansetron HCl (Zofran) 4 mg IVPUSH ONETIME ONE Stop: 09/16/19 21:03 Last Admin: 09/16/19 21:14 Dose: 4 mg Documented by: - Exam General: Alert, Oriented HEENT: Pupils Equal, Mucous Membr. Moist/[place] Neck: Supple Lungs: Clear to Auscultation, Normal Respiratory Effort Cardiovascular: Regular Rate, Regular Rhythm GI/Abdominal Exam: Normal Bowel Sounds, Non-Tender, No Distention Extremities: Normal Inspection, Normal Range of Motion, Non-Tender, No Pedal Edema, Normal Capillary Refill Skin: Warm, Dry, Intact Neurological: No New Focal Deficit Psy/Mental Status: Alert, Normal Affect, Normal Mood Sepsis Event Note - Evaluation Sepsis Screening Result: No Definite Risk - Focused Exam Vital Signs: Vital Signs Temp Pulse Resp BP Pulse Ox 09/28/19 08:20 123/77 09/28/19 08:02 97.9 F 79 16 123/77 93 L 09/28/19 04:09 97.9 F 76 14 129/88 91 L - Problem List & Annotations (1) Fall as cause of accidental injury at home as place of occurrence SNOMED Code(s): 64758103 Code(s): W19.XXXA - UNSPECIFIED FALL, INITIAL ENCOUNTER; Y92.009 - UNSP PLACE IN UNSP NON-INSTITUT (PRIVATE) RESIDENCE PLACE Status: Acute Current Visit: Yes Qualifiers: Encounter type: initial encounter Qualified Code(s): W19.XXXA - Unspecified fall, initial encounter; Y92.009 - Unspecified place in unspecified non- institutional (private) residence as the place of occurrence of the external cause (2) Ribs, multiple fractures SNOMED Code(s): 1598580 Code(s): S22.49XA - MULTIPLE FRACTURES OF RIBS, UNSP SIDE, INIT FOR CLOS FX Status: Acute Current Visit: Yes Qualifiers: Encounter type: initial encounter Fracture type: closed Laterality: left Qualified Code(s): S22.42XA - Multiple fractures of ribs, left side, initial encounter for closed fracture - Problem List Review Problem List Initiated/Reviewed/Updated: Yes - My Orders Last 24 Hours: My Active Orders 09/27/19 18:25 Communication Order [RC] DAILY 09/28/19 09:00 Enoxaparin [Lovenox] 40 mg SUBCUT DAILY - Assessment Assessment:: Left sided rib fractures s/p fall from standing onto a wooden chair on 09/15 - Pain improving Parkinson's disease - chronic - Plan Plan:: Pain - continue home dilaudid 2 mg Q6H and fentanyl patch 75 mcg - Continue PO dilaudid to 2mg Q6H PRN Psychiatric - Continue home Parkinson's meds and all other meds per psyshiatry - Patient is alert, oriented x 4 and appropriate on my exam this AM. I recommended he consider going to a [facility] facility for rehab. He is agreeable to go to [facility]. - He was exposed to COVID, making it necessary to stay hospitalized during his quarantine. Plan discharge on September 30 Cardiovascular - continue to monitor for signs of hypoperfusion. Doing well. - encourage fluid intake. Respiratory - Continue aggressive pulmonary hygiene including IS, sitting upright. GI - regular diet - continue Miralax - No need for IVF - UA mixed. not concerning for acute infection, likely due to colonization. No need to actively treat - voiding spontaneously ID - Coronavirus test negative on 09/15 and 09/23 - fevers resolved. - WBC is normal, lactate normal - No concern for active infection right now. We will continue to monitor Dispo: Then will likely dc to SNF September 30
[2019-09-28] MEDS: LORazepam 0.5 MG Tab PO SCH ×2 (12:05→15:00)
[2019-09-28] MEDS: traZODone 50 MG Tab PO SCH (20:33)
[2019-09-28] MEDS: Citalopram 20 MG Tab PO SCH (20:38)
[2019-09-28] MEDS: Simvastatin 20 MG Tab PO SCH (20:39)
[2019-09-29] MEDS: LORazepam 0.5 MG Tab PO PRN (04:19)
[2019-09-29] MEDS: HYDROmorphone 2 MG Tab PO SCH ×4 (04:19→20:59)
[2019-09-29] MEDS: HYDROmorphone 2 MG Tab PO PRN (05:29)
[2019-09-29] MEDS: Acetaminophen 325 MG Tab PO PRN (05:29)
--- NOTE | 2019-09-29 07:50 | PCM.PN ---
- General Info Date of Service: 09/29/19 Admission Dx/Problem (Free Text): Fall with rib fxs, left Subjective Update: Still has left sided chest wall pain. Otherwise breathing well, no fevers, no chills, doing good. Functional Status: Reports: Pain Controlled, Tolerating Diet, Ambulating, Urinating - Review of Systems General: Reports: No Symptoms HEENT: Reports: No Symptoms Pulmonary: Reports: Other (chest wall pain, left) Cardiovascular: Reports: No Symptoms Gastrointestinal: Reports: No Symptoms Genitourinary: Reports: No Symptoms Musculoskeletal: Reports: No Symptoms Skin: Reports: No Symptoms Neurological: Reports: No Symptoms - Patient Data Vitals - Most Recent: Last Vital Signs Temp 98.2 F 09/29/19 04:17 Pulse 66 09/29/19 04:17 Resp 18 09/29/19 04:17 BP 135/87 09/29/19 04:17 Pulse Ox 94 L 09/29/19 04:17 Weight - Most Recent: 80.059 kg I&O - Last 24 Hours: Intake & Output 09/28/19 09/29/19 09/29/19 22:59 06:59 14:59 Intake Total 1410 700 Output Total 500 Balance 1410 200 Rommel Results Last 24 Hours: Microbiology 09/24/19 01:58 Aerobic Blood Culture - Preliminary Blood NO GROWTH AFTER 5 DAYS Anaerobic Blood Culture - Preliminary NO GROWTH AFTER 5 DAYS Med Orders - Current: Current Medications Acetaminophen (Tylenol) 650 mg PO Q6H PRN PRN Reason: Pain Last Admin: 09/29/19 05:29 Dose: 650 mg Documented by: Albuterol (Proventil Neb Soln) 2.5 mg NEB Q2H PRN PRN Reason: Shortness Of Breath/wheezing Baclofen (Lioresal) 10 mg PO QID [facility] Last Admin: 09/28/19 20:39 Dose: 10 mg Documented by: Bisacodyl (Dulcolax) 10 mg RECTAL DAILY PRN PRN Reason: Constipation Buspirone HCl (Buspar) 15 mg PO BID [facility] Last Admin: 09/28/19 20:39 Dose: 15 mg Documented by: Carbidopa/Levodopa (Sinemet 25-100 Mg) 1 tab PO QID [facility] Last Admin: 09/28/19 20:39 Dose: 1 tab Documented by: Celecoxib (Celebrex) 200 mg PO DAILY [facility] Last Admin: 09/28/19 08:21 Dose: 200 mg Documented by: Citalopram Hydrobromide (Celexa) 40 mg PO BEDTIME [facility] Last Admin: 09/28/19 20:38 Dose: 40 mg Documented by: Cyclobenzaprine HCl (Flexeril) 5 mg PO TID [facility] Last Admin: 09/28/19 20:33 Dose: 5 mg Documented by: Diclofenac Sodium (Voltaren 1% Gel) 2 gm TOP QID [facility] Last Admin: 09/28/19 20:39 Dose: 2 gm Documented by: Diphenhydramine HCl (Benadryl) 25 mg IVPUSH Q6H PRN PRN Reason: pruritis Last Admin: 09/18/19 22:18 Dose: 25 mg Documented by: Enoxaparin Sodium (Lovenox) 40 mg SUBCUT DAILY [facility] Last Admin: 09/28/19 08:22 Dose: 40 mg Documented by: Fentanyl (Duragesic) 75 mcg TRDERM Q72H [facility] Last Admin: 09/27/19 09:14 Dose: 75 mcg Documented by: Gabapentin (Neurontin) 200 mg PO TID [facility] Last Admin: 09/28/19 20:38 Dose: 200 mg Documented by: Hydromorphone HCl (Dilaudid) 2 mg PO Q6H PRN PRN Reason: Pain Last Admin: 09/29/19 05:29 Dose: 2 mg Documented by: Hydromorphone HCl (Dilaudid) 2 mg PO Q6H [facility] Last Admin: 09/29/19 04:19 Dose: 2 mg Documented by: Lorazepam (Ativan) 1 mg PO Q8H PRN PRN Reason: Anxiety Last Admin: 09/27/19 04:44 Dose: 1 mg Documented by: Lorazepam (Ativan) 1 mg PO BID@0800,2000 [facility] Last Admin: 09/28/19 20:33 Dose: 1 mg Documented by: Lorazepam (Ativan) 0.5 mg PO BID@1200,1600 [facility] Last Admin: 09/28/19 15:00 Dose: 0.5 mg Documented by: Lorazepam (Ativan) 0.5 mg PO Q6H PRN PRN Reason: Anxiety Last Admin: 09/29/19 04:19 Dose: 0.5 mg Documented by: Losartan Potassium (Cozaar) 50 mg PO DAILY [facility] Last Admin: 09/28/19 08:20 Dose: 50 mg Documented by: Magnesium Oxide (Magnesium Oxide) 400 mg PO BID [facility] Last Admin: 09/28/19 20:38 Dose: 400 mg Documented by: Miscellaneous Information (Remove Patch) 1 ea TRDERM Q72H [facility] Last Admin: 09/27/19 09:15 Dose: 1 ea Documented by: Ondansetron HCl (Zofran Odt) 4 mg PO Q4H PRN PRN Reason: nausea, able to take PO Polyethylene Glycol (Miralax) 17 gm PO DAILY [facility] Last Admin: 09/28/19 08:22 Dose: Not Given Documented by: Senna/Docusate Sodium (Senna Plus) 1 tab PO TID PRN PRN Reason: Constipation Last Admin: 09/25/19 20:14 Dose: 1 tab Documented by: Simvastatin (Zocor) 20 mg PO BEDTIME [facility] Last Admin: 09/28/19 20:39 Dose: 20 mg Documented by: Terazosin HCl (Hytrin) 5 mg PO BID [facility] Last Admin: 09/28/19 20:34 Dose: 5 mg Documented by: Trazodone HCl (Trazodone) 100 mg PO BEDTIME [facility] Last Admin: 09/28/19 20:33 Dose: 100 mg Documented by: Discontinued Medications Buspirone HCl (Buspar) 7.5 mg PO BID [facility] Last Admin: 09/25/19 09:21 Dose: 7.5 mg Documented by: Ephedrine Sulfate (Ephedrine Sulfate) 5 mg IVPUSH ASDIRECTED PRN PRN Reason: Hypotension Fentanyl (Sublimaze) 100 mcg EPIDUR Q3H PRN PRN Reason: Pain Last Admin: 09/20/19 10:44 Dose: 100 mcg Documented by: Fentanyl (Duragesic) 75 mcg TRDERM Q72H [facility] Fentanyl/Bupivacaine HCl (Fentanyl/Bupivacaine/Ns 2 Mcg-0.125% 100 Ml) 100 ml EPIDUR ASDIRECTED PRN PRN Reason: Pain Last Admin: 09/20/19 08:22 Dose: 100 ml Documented by: Gabapentin (Neurontin) 200 mg PO TID [facility] Heparin Sodium (Porcine) (Heparin Sodium) 5,000 units SUBCUT Q8H [facility] Last Admin: 09/22/19 08:19 Dose: Not Given Documented by: Heparin Sodium (Porcine) (Heparin Sodium) 5,000 units SUBCUT Q8H [facility] Last Admin: 09/27/19 18:18 Dose: 5,000 units Documented by: Hydromorphone HCl (Dilaudid) 0.5 mg IVPUSH ONETIME ONE Stop: 09/16/19 21:03 Last Admin: 09/16/19 21:19 Dose: 0.5 mg Documented by: Hydromorphone HCl (Dilaudid) 1 mg IVPUSH Q2H PRN PRN Reason: Pain (severe 7-10) Last Admin: 09/18/19 09:22 Dose: 1 mg Documented by: Hydromorphone HCl (Dilaudid) 1 mg IVPUSH Q2H PRN PRN Reason: Pain (severe 7-10) Hydromorphone HCl (Dilaudid) 2 mg PO TID [facility] Last Admin: 09/21/19 08:12 Dose: 2 mg Documented by: Hydromorphone HCl (Dilaudid) 2 mg PO Q4H [facility] Hydromorphone HCl (Dilaudid) 2 mg PO Q4H PRN PRN Reason: Chest Pain Hydromorphone HCl (Dilaudid) 2 mg PO Q4H [facility] Hydromorphone HCl (Dilaudid) 2 mg PO Q4H [facility] Last Admin: 09/22/19 10:07 Dose: 2 mg Documented by: Dextrose/Sodium Chloride (Dextrose 5%-Normal Saline) 1,000 mls @ 150 mls/hr IV ASDIRECTED [facility] Last Infusion: 09/17/19 00:05 Dose: 50 mls/hr Documented by: Dextrose/Sodium Chloride (Dextrose 5%-1/2 Ns) 1,000 mls @ 50 mls/hr IV ASDIRECTED [facility] Last Infusion: 09/18/19 08:55 Dose: 75 mls/hr Documented by: Sodium Chloride (Normal Saline) 250 mls @ 249.723 mls/hr IV ASDIRECTED [facility] Dextrose/Sodium Chloride (Dextrose 5%-1/2 Ns) 1,000 mls @ 50 mls/hr IV ASDIRECTED [facility] Last Admin: 09/22/19 02:35 Dose: 50 mls/hr Documented by: Magnesium Sulfate/Dextrose 1 (gm/ Premix) 100 mls @ 100 mls/hr IV Q1H ONE Stop: 09/20/19 18:14 Last Admin: 09/20/19 17:19 Dose: 100 mls/hr Documented by: Magnesium Sulfate 2 gm/ Premix 50 mls @ 25 mls/hr IV ONETIME ONE Stop: 09/21/19 18:14 Last Admin: 09/21/19 16:23 Dose: 25 mls/hr Documented by: Sodium Chloride (Normal Saline) 1,000 mls @ 500 mls/hr IV ONETIME ONE Stop: 09/24/19 04:02 Last Admin: 09/24/19 02:47 Dose: 500 mls/hr Documented by: Lidocaine/Epinephrine (Xylocaine-Mpf 1.5% W/Epinephrine 1:200,000) 5 ml .ROUTE .STK-MED ONE Stop: 09/17/19 16:01 Lorazepam (Ativan) 0.5 mg PO 1200,1600 [facility] Magnesium Oxide (Magnesium Oxide) 800 mg PO ONETIME ONE Stop: 09/18/19 08:46 Last Admin: 09/18/19 09:10 Dose: 800 mg Documented by: Morphine Sulfate (Duramorph Pf) 5 mg EPIDUR Q6H PRN PRN Reason: Pain Last Admin: 09/20/19 22:11 Dose: 5 mg Documented by: Morphine Sulfate (Duramorph Pf) Confirm Administered Dose 10 mg .ROUTE .STK-MED ONE Stop: 09/20/19 22:04 Ondansetron HCl (Zofran) 4 mg IVPUSH ONETIME ONE Stop: 09/16/19 21:03 Last Admin: 09/16/19 21:14 Dose: 4 mg Documented by: - Exam General: Alert, Oriented, Cooperative Lungs: Normal Respiratory Effort Cardiovascular: Regular Rate, Regular Rhythm GI/Abdominal Exam: Normal Bowel Sounds, Soft, Non-Tender, No Organomegaly Sepsis Event Note - Evaluation Sepsis Screening Result: No Definite Risk - Focused Exam Vital Signs: Vital Signs Temp Pulse Resp BP Pulse Ox 09/29/19 04:17 98.2 F 66 18 135/87 94 L 09/28/19 20:37 98.1 F 84 18 112/64 93 L 09/28/19 20:34 112/64 - Problem List Review Problem List Initiated/Reviewed/Updated: No - Assessment Assessment:: Left sided rib fractures s/p fall from standing onto a wooden chair on 09/15 - Pain improving Parkinson's disease - chronic - Plan Plan:: Pain - continue home dilaudid 2 mg Q6H and fentanyl patch 75 mcg - Continue PO dilaudid to 2mg Q6H PRN Psychiatric - Continue home Parkinson's meds and all other meds per psyshiatry - Patient is alert, oriented x 4 and appropriate on my exam this AM. I recommended he consider going to a fpc facility for rehab. He is agreeable to go to [facility]. - He was exposed to COVID, making it necessary to stay hospitalized during his quarantine. Plan discharge on September 30 Cardiovascular - continue to monitor for signs of hypoperfusion. Doing well. - encourage fluid intake. Respiratory - Continue aggressive pulmonary hygiene including IS, sitting upright. GI - regular diet - continue Miralax - No need for IVF - UA mixed. not concerning for acute infection, likely due to colonization. No need to actively treat - voiding spontaneously ID - Coronavirus test negative on 09/15 and 09/23 - fevers resolved. - WBC is normal, lactate normal - No concern for active infection right now. We will continue to monitor Dispo: Then will likely dc to SNF September 30
[2019-09-29] MEDS: Polyethylene Glycol 3350 Powder 17 GM Packet PO SCH (09:31)
[2019-09-29] MEDS: Enoxaparin 40 MG/0.4 ML Syringe SUBCUT SCH (09:32)
[2019-09-29] MEDS: Gabapentin 100 MG Cap PO SCH ×3 (09:33→20:57)
[2019-09-29] MEDS: Cyclobenzaprine 10 MG Tab PO SCH ×3 (09:33→20:58)
[2019-09-29] MEDS: Magnesium Oxide 400 MG Tab PO SCH ×2 (09:34→20:58)
[2019-09-29] MEDS: Terazosin 5 MG Cap PO SCH ×2 (09:34→20:58)
[2019-09-29] MEDS: LORazepam 1 MG Tab PO SCH ×2 (09:34→20:56)
[2019-09-29] MEDS: Celecoxib 100 MG Cap PO SCH (09:35)
[2019-09-29] MEDS: Baclofen 10 MG Tab PO SCH ×4 (09:35→20:56)
[2019-09-29] MEDS: Losartan 25 MG Tab PO SCH (09:35)
[2019-09-29] MEDS: busPIRone 15 MG Tab PO SCH ×2 (09:36→20:59)
[2019-09-29] MEDS: Carbidopa/Levodopa 25-100 MG Tab PO SCH ×4 (09:36→20:58)
[2019-09-29] MEDS: Diclofenac Sodium 1% Gel 100 GM Tube TOP SCH ×4 (09:37→21:00)
[2019-09-29] MEDS: LORazepam 0.5 MG Tab PO SCH ×2 (12:44→16:20)
[2019-09-29] MEDS: traZODone 50 MG Tab PO SCH (20:55)
[2019-09-29] MEDS: Citalopram 20 MG Tab PO SCH (20:55)
[2019-09-29] MEDS: Simvastatin 20 MG Tab PO SCH (20:56)
[2019-09-30] MEDS: HYDROmorphone 2 MG Tab PO SCH ×4 (03:33→21:12)
[2019-09-30] MEDS: LORazepam 1 MG Tab PO PRN (03:33)
[2019-09-30] MEDS: Acetaminophen 325 MG Tab PO PRN ×2 (05:35→18:11)
[2019-09-30] MEDS: HYDROmorphone 2 MG Tab PO PRN (05:35)
[2019-09-30] MEDS: Terazosin 5 MG Cap PO SCH ×2 (08:58→20:07)
[2019-09-30] MEDS: Enoxaparin 40 MG/0.4 ML Syringe SUBCUT SCH (08:58)
[2019-09-30] MEDS: Polyethylene Glycol 3350 Powder 17 GM Packet PO SCH (08:58)
[2019-09-30] MEDS: Losartan 25 MG Tab PO SCH (08:59)
[2019-09-30] MEDS: LORazepam 1 MG Tab PO SCH ×2 (08:59→20:07)
[2019-09-30] MEDS: Magnesium Oxide 400 MG Tab PO SCH ×2 (08:59→20:07)
[2019-09-30] MEDS: Carbidopa/Levodopa 25-100 MG Tab PO SCH ×4 (08:59→20:05)
[2019-09-30] MEDS: Cyclobenzaprine 10 MG Tab PO SCH ×3 (08:59→20:07)
[2019-09-30] MEDS: busPIRone 15 MG Tab PO SCH ×2 (08:59→20:06)
[2019-09-30] MEDS: Celecoxib 100 MG Cap PO SCH (09:00)
[2019-09-30] MEDS: Gabapentin 100 MG Cap PO SCH ×3 (09:01→20:06)
[2019-09-30] MEDS: Baclofen 10 MG Tab PO SCH ×4 (09:01→20:06)
[2019-09-30] MEDS: Diclofenac Sodium 1% Gel 100 GM Tube TOP SCH ×4 (09:04→21:13)
[2019-09-30] MEDS: fentaNYL 75 MCG/HR Transdermal Patch TRDERM SCH (12:02)
[2019-09-30] MEDS: LORazepam 0.5 MG Tab PO SCH ×2 (12:04→15:32)
--- NOTE | 2019-09-30 14:39 | PCM.PN ---
- General Info Date of Service: 09/30/19 Admission Dx/Problem (Free Text): Fall with rib fxs, left Subjective Update: Patient has no issues, doing well. Tolerating diet and breathing well. Functional Status: Reports: Pain Controlled, Tolerating Diet, Ambulating, Urinat ing Pain Score: 4 - Review of Systems General: Reports: No Symptoms HEENT: Reports: No Symptoms Pulmonary: Reports: No Symptoms, Other (left chest pain) Cardiovascular: Reports: No Symptoms Gastrointestinal: Reports: No Symptoms Genitourinary: Reports: No Symptoms Musculoskeletal: Reports: No Symptoms Skin: Reports: No Symptoms Neurological: Reports: No Symptoms Psychiatric: Reports: Other (Parkinson's disease) - Patient Data Vitals - Most Recent: Last Vital Signs Temp 98.2 F 09/29/19 04:17 Pulse 61 09/30/19 08:48 Resp 20 09/30/19 08:48 BP 117/64 09/30/19 08:59 Pulse Ox 92 L 09/30/19 08:48 Weight - Most Recent: 79.469 kg I&O - Last 24 Hours: Intake & Output 09/29/19 09/30/19 09/30/19 22:59 06:59 14:59 Intake Total 920 500 Output Total 425 550 Balance 495 -50 Rommel Results Last 24 Hours: Microbiology 09/24/19 01:58 Aerobic Blood Culture - Preliminary Blood NO GROWTH AFTER 6 DAYS Anaerobic Blood Culture - Preliminary NO GROWTH AFTER 6 DAYS Med Orders - Current: Current Medications Acetaminophen (Tylenol) 650 mg PO Q6H PRN PRN Reason: Pain Last Admin: 09/30/19 05:35 Dose: 650 mg Documented by: Albuterol (Proventil Neb Soln) 2.5 mg NEB Q2H PRN PRN Reason: Shortness Of Breath/wheezing Baclofen (Lioresal) 10 mg PO QID [facility] Last Admin: 09/30/19 12:04 Dose: 10 mg Documented by: Bisacodyl (Dulcolax) 10 mg RECTAL DAILY PRN PRN Reason: Constipation Buspirone HCl (Buspar) 15 mg PO BID [facility] Last Admin: 09/30/19 08:59 Dose: 15 mg Documented by: Carbidopa/Levodopa (Sinemet 25-100 Mg) 1 tab PO QID [facility] Last Admin: 09/30/19 12:04 Dose: 1 tab Documented by: Celecoxib (Celebrex) 200 mg PO DAILY [facility] Last Admin: 09/30/19 09:00 Dose: 200 mg Documented by: Citalopram Hydrobromide (Celexa) 40 mg PO BEDTIME [facility] Last Admin: 09/29/19 20:55 Dose: 40 mg Documented by: Cyclobenzaprine HCl (Flexeril) 5 mg PO TID [facility] Last Admin: 09/30/19 08:59 Dose: 5 mg Documented by: Diclofenac Sodium (Voltaren 1% Gel) 2 gm TOP QID [facility] Last Admin: 09/30/19 12:05 Dose: 1 applic Documented by: Diphenhydramine HCl (Benadryl) 25 mg IVPUSH Q6H PRN PRN Reason: pruritis Last Admin: 09/18/19 22:18 Dose: 25 mg Documented by: Enoxaparin Sodium (Lovenox) 40 mg SUBCUT DAILY [facility] Last Admin: 09/30/19 08:58 Dose: 40 mg Documented by: Fentanyl (Duragesic) 75 mcg TRDERM Q72H [facility] Last Admin: 09/30/19 12:02 Dose: 75 mcg Documented by: Gabapentin (Neurontin) 200 mg PO TID [facility] Last Admin: 09/30/19 09:01 Dose: 200 mg Documented by: Hydromorphone HCl (Dilaudid) 2 mg PO Q6H PRN PRN Reason: Pain Last Admin: 09/30/19 05:35 Dose: 2 mg Documented by: Hydromorphone HCl (Dilaudid) 2 mg PO Q6H [facility] Last Admin: 09/30/19 09:02 Dose: 2 mg Documented by: Lorazepam (Ativan) 1 mg PO Q8H PRN PRN Reason: Anxiety Last Admin: 09/30/19 03:33 Dose: 1 mg Documented by: Lorazepam (Ativan) 1 mg PO BID@0800,2000 [facility] Last Admin: 09/30/19 08:59 Dose: 1 mg Documented by: Lorazepam (Ativan) 0.5 mg PO BID@1200,1600 [facility] Last Admin: 09/30/19 12:04 Dose: 0.5 mg Documented by: Lorazepam (Ativan) 0.5 mg PO Q6H PRN PRN Reason: Anxiety Last Admin: 09/29/19 04:19 Dose: 0.5 mg Documented by: Losartan Potassium (Cozaar) 50 mg PO DAILY [facility] Last Admin: 09/30/19 08:59 Dose: 50 mg Documented by: Magnesium Oxide (Magnesium Oxide) 400 mg PO BID [facility] Last Admin: 09/30/19 08:59 Dose: 400 mg Documented by: Miscellaneous Information (Remove Patch) 1 ea TRDERM Q72H [facility] Last Admin: 09/30/19 12:09 Dose: 1 ea Documented by: Ondansetron HCl (Zofran Odt) 4 mg PO Q4H PRN PRN Reason: nausea, able to take PO Polyethylene Glycol (Miralax) 17 gm PO DAILY [facility] Last Admin: 09/30/19 08:58 Dose: 17 gm Documented by: Senna/Docusate Sodium (Senna Plus) 1 tab PO TID PRN PRN Reason: Constipation Last Admin: 09/25/19 20:14 Dose: 1 tab Documented by: Simvastatin (Zocor) 20 mg PO BEDTIME [facility] Last Admin: 09/29/19 20:56 Dose: 20 mg Documented by: Terazosin HCl (Hytrin) 5 mg PO BID [facility] Last Admin: 09/30/19 08:58 Dose: 5 mg Documented by: Trazodone HCl (Trazodone) 100 mg PO BEDTIME [facility] Last Admin: 09/29/19 20:55 Dose: 100 mg Documented by: Discontinued Medications Buspirone HCl (Buspar) 7.5 mg PO BID [facility] Last Admin: 09/25/19 09:21 Dose: 7.5 mg Documented by: Ephedrine Sulfate (Ephedrine Sulfate) 5 mg IVPUSH ASDIRECTED PRN PRN Reason: Hypotension Fentanyl (Sublimaze) 100 mcg EPIDUR Q3H PRN PRN Reason: Pain Last Admin: 09/20/19 10:44 Dose: 100 mcg Documented by: Fentanyl (Duragesic) 75 mcg TRDERM Q72H [facility] Fentanyl/Bupivacaine HCl (Fentanyl/Bupivacaine/Ns 2 Mcg-0.125% 100 Ml) 100 ml EPIDUR ASDIRECTED PRN PRN Reason: Pain Last Admin: 09/20/19 08:22 Dose: 100 ml Documented by: Gabapentin (Neurontin) 200 mg PO TID [facility] Heparin Sodium (Porcine) (Heparin Sodium) 5,000 units SUBCUT Q8H [facility] Last Admin: 09/22/19 08:19 Dose: Not Given Documented by: Heparin Sodium (Porcine) (Heparin Sodium) 5,000 units SUBCUT Q8H [facility] Last Admin: 09/27/19 18:18 Dose: 5,000 units Documented by: Hydromorphone HCl (Dilaudid) 0.5 mg IVPUSH ONETIME ONE Stop: 09/16/19 21:03 Last Admin: 09/16/19 21:19 Dose: 0.5 mg Documented by: Hydromorphone HCl (Dilaudid) 1 mg IVPUSH Q2H PRN PRN Reason: Pain (severe 7-10) Last Admin: 09/18/19 09:22 Dose: 1 mg Documented by: Hydromorphone HCl (Dilaudid) 1 mg IVPUSH Q2H PRN PRN Reason: Pain (severe 7-10) Hydromorphone HCl (Dilaudid) 2 mg PO TID [facility] Last Admin: 09/21/19 08:12 Dose: 2 mg Documented by: Hydromorphone HCl (Dilaudid) 2 mg PO Q4H [facility] Hydromorphone HCl (Dilaudid) 2 mg PO Q4H PRN PRN Reason: Chest Pain Hydromorphone HCl (Dilaudid) 2 mg PO Q4H [facility] Hydromorphone HCl (Dilaudid) 2 mg PO Q4H [facility] Last Admin: 09/22/19 10:07 Dose: 2 mg Documented by: Dextrose/Sodium Chloride (Dextrose 5%-Normal Saline) 1,000 mls @ 150 mls/hr IV ASDIRECTED [facility] Last Infusion: 09/17/19 00:05 Dose: 50 mls/hr Documented by: Dextrose/Sodium Chloride (Dextrose 5%-1/2 Ns) 1,000 mls @ 50 mls/hr IV ASDIRECTED [facility] Last Infusion: 09/18/19 08:55 Dose: 75 mls/hr Documented by: Sodium Chloride (Normal Saline) 250 mls @ 249.723 mls/hr IV ASDIRECTED [facility] Dextrose/Sodium Chloride (Dextrose 5%-1/2 Ns) 1,000 mls @ 50 mls/hr IV ASDIRECTED [facility] Last Admin: 09/22/19 02:35 Dose: 50 mls/hr Documented by: Magnesium Sulfate/Dextrose 1 (gm/ Premix) 100 mls @ 100 mls/hr IV Q1H ONE Stop: 09/20/19 18:14 Last Admin: 09/20/19 17:19 Dose: 100 mls/hr Documented by: Magnesium Sulfate 2 gm/ Premix 50 mls @ 25 mls/hr IV ONETIME ONE Stop: 09/21/19 18:14 Last Admin: 09/21/19 16:23 Dose: 25 mls/hr Documented by: Sodium Chloride (Normal Saline) 1,000 mls @ 500 mls/hr IV ONETIME ONE Stop: 09/24/19 04:02 Last Admin: 09/24/19 02:47 Dose: 500 mls/hr Documented by: Lidocaine/Epinephrine (Xylocaine-Mpf 1.5% W/Epinephrine 1:200,000) 5 ml .ROUTE .STK-MED ONE Stop: 09/17/19 16:01 Lorazepam (Ativan) 0.5 mg PO 1200,1600 [facility] Magnesium Oxide (Magnesium Oxide) 800 mg PO ONETIME ONE Stop: 09/18/19 08:46 Last Admin: 09/18/19 09:10 Dose: 800 mg Documented by: Morphine Sulfate (Duramorph Pf) 5 mg EPIDUR Q6H PRN PRN Reason: Pain Last Admin: 09/20/19 22:11 Dose: 5 mg Documented by: Morphine Sulfate (Duramorph Pf) Confirm Administered Dose 10 mg .ROUTE .STK-MED ONE Stop: 09/20/19 22:04 Ondansetron HCl (Zofran) 4 mg IVPUSH ONETIME ONE Stop: 09/16/19 21:03 Last Admin: 09/16/19 21:14 Dose: 4 mg Documented by: - Exam General: Alert, Oriented, Cooperative Lungs: Clear to Auscultation, Normal Respiratory Effort, Other (left chest tenderness) Cardiovascular: Regular Rate, Regular Rhythm GI/Abdominal Exam: Normal Bowel Sounds, Soft, Non-Tender Sepsis Event Note - Evaluation Sepsis Screening Result: No Definite Risk - Focused Exam Vital Signs: Vital Signs Pulse Resp BP Pulse Ox 09/30/19 08:59 117/64 09/30/19 08:58 117/64 09/30/19 08:48 61 20 117/64 92 L 09/30/19 03:32 58 L 18 117/78 95 - Problem List Review Problem List Initiated/Reviewed/Updated: No - My Orders Last 24 Hours: My Active Orders 09/30/19 10:35 Patient Status [ADT] Routine - Assessment Assessment:: Left sided rib fractures s/p fall from standing onto a wooden chair on 09/15 - Pain improving Parkinson's disease - chronic - Plan Plan:: Pain - continue home dilaudid 2 mg Q6H and fentanyl patch 75 mcg - Continue PO dilaudid to 2mg Q6H PRN Psychiatric - Continue home Parkinson's meds and all other meds per psyshiatry - Patient is alert, oriented x 4 and appropriate on my exam this AM. I recommended he consider going to a intermediate facility for rehab. He is agreeable to go to [facility]. - He was exposed to COVID, making it necessary to stay hospitalized during his quarantine. Plan discharge on September 30 Cardiovascular - continue to monitor for signs of hypoperfusion. Doing well. - encourage fluid intake. Respiratory - Continue aggressive pulmonary hygiene including IS, sitting upright. GI - regular diet - continue Miralax - No need for IVF - UA mixed. not concerning for acute infection, likely due to colonization. No need to actively treat - voiding spontaneously ID - Coronavirus test negative on 09/15 and 09/23 - fevers resolved. - WBC is normal, lactate normal - No concern for active infection right now. We will continue to monitor Dispo: Then will likely dc to SNF September 30
[2019-09-30] MEDS: Simvastatin 20 MG Tab PO SCH (20:05)
[2019-09-30] MEDS: Citalopram 20 MG Tab PO SCH (20:06)
[2019-09-30] MEDS: traZODone 50 MG Tab PO SCH (20:06)
[2019-10-01] MEDS: HYDROmorphone 2 MG Tab PO SCH ×2 (03:00→09:03)
[2019-10-01] MEDS: LORazepam 0.5 MG Tab PO PRN (03:00)
[2019-10-01] MEDS: LORazepam 1 MG Tab PO SCH (08:46)
[2019-10-01] MEDS: Baclofen 10 MG Tab PO SCH ×2 (08:48→12:09)
[2019-10-01] MEDS: busPIRone 15 MG Tab PO SCH (08:48)
[2019-10-01] MEDS: Cyclobenzaprine 10 MG Tab PO SCH (08:48)
[2019-10-01] MEDS: Polyethylene Glycol 3350 Powder 17 GM Packet PO SCH (08:49)
[2019-10-01] MEDS: Losartan 25 MG Tab PO SCH (08:50)
[2019-10-01] MEDS: Gabapentin 100 MG Cap PO SCH (08:51)
[2019-10-01] MEDS: Carbidopa/Levodopa 25-100 MG Tab PO SCH ×2 (08:52→12:08)
[2019-10-01] MEDS: Terazosin 5 MG Cap PO SCH (08:52)
[2019-10-01] MEDS: Magnesium Oxide 400 MG Tab PO SCH (08:52)
[2019-10-01] MEDS: Celecoxib 100 MG Cap PO SCH (08:53)
[2019-10-01] MEDS: Enoxaparin 40 MG/0.4 ML Syringe SUBCUT SCH (08:53)
[2019-10-01] MEDS: Diclofenac Sodium 1% Gel 100 GM Tube TOP SCH ×2 (08:55→12:09)
--- NOTE | 2019-10-01 10:14 | PCM.DCSUM1 ---
Discharge Summary - Hospital Course Free Text/Narrative:: The patient has severe Parkinson's disease and fell, hitting left chest on 09/15. he sustained several left sided rib fractures without pneumothorax or hemoperitoneum. He was admitted and treated non-operatively with pain control and breathing exercises. He did well. Had a moderate exposure to Covid 19 and was observed in the hospital for 14 days, he had 2 coronavirus tests during this time that were negative. Patient has remained stable with good pain control and on room air. He is ready for discharge to SNF for PT/OT, Resp Therapy and nursing care due to severe Parkinson's disease. Diagnosis: Stroke: No - Discharge Data Discharge Date: 10/01/19 Discharge Disposition: DC/Tfer to SNF 03 Condition: Good - Referral to Home Health Date of Face to Face Encounter: 10/01/19 Primary Care Physician: Nik Hughes MD Skilled Need: PT/OT, Respiratory therapy, Nursing care due to severe parkinson's disease - Patient Summary/Data Consults: Consultations 09/17/19 00:17 Respiratory Care Assess and Treatment [CONS] Routine 09/17/19 10:41 OT Evaluation and Treatment [CONS] Routine PT Evaluation and Treatment [CONS] Routine 09/17/19 10:46 TATTOOER Evaluation and Treatment [CONS] Routine 09/17/19 15:24 Consult to Physical Therapy [PT Evaluation and Treatment] [CONS] Routine 09/18/19 18:03 Consult to Physician [CONS] Routine - Patient Instructions Diet: Regular Diet as Tolerated Activity: As Tolerated Driving: Do Not Drive Showering/Bathing: May Shower Notify Provider of: Fever Other/Special Instructions: - Encourage use of incentive spirometer, siting upright, breathing exercises - Discharge Plan *PRESCRIPTION DRUG MONITORING PROGRAM REVIEWED*: No *COPY OF PRESCRIPTION DRUG MONITORING REPORT IN PATIENT DINESH: No Prescriptions/Med Rec: LORazepam [Ativan] 0.5 mg PO Q6H PRN 7 Days #28 PRN Reason: Anxiety LORazepam [Ativan] 0.5 mg PO 1200,1600 7 Days #14 LORazepam [Ativan] 1 mg PO 00,1999 7 Days #14 Baclofen 10 mg PO QID 7 Days #28 busPIRone [Buspar] 15 mg PO BID 7 Days #14 tablet Carbidopa/Levodopa [Carbidopa-Levodopa 25-100 Tab] 1 each PO QID 7 Days #28 HYDROmorphone [Dilaudid] 2 mg PO Q6H PRN 7 Days #28 PRN Reason: Pain fentaNYL [Duragesic] 75 mcg TD Q72H 6 Days #2 patch Cyclobenzaprine [Flexeril] 5 mg PO TID 7 Days #21 Gabapentin [Neurontin] 200 mg PO TID 7 Days #21 traZODone HCl [Trazodone HCl] 100 mg PO BEDTIME 7 Days #7 Home Medications: Home Meds Acetaminophen [Tylenol Arthritis Pain] 650 mg PO Q6H PRN 09/16/19 [History] Celecoxib [CeleBREX] 200 mg PO DAILY 09/16/19 [History] Diclofenac Sodium [Voltaren 1% Gel] 2 gm TOP QID 09/16/19 [History] Docusate Sodium/Sennosides [Senna Plus] 1 each PO TID PRN 09/16/19 [History] Escitalopram Oxalate [Lexapro] 20 mg PO BEDTIME 09/16/19 [History] Losartan [Cozaar] 50 mg PO DAILY 09/16/19 [History] Magnesium Oxide [Magnesium] 400 mg PO BID 09/16/19 [History] Simvastatin 20 mg PO BEDTIME 09/16/19 [History] Terazosin [Hytrin] 5 mg PO BID 09/16/19 [History] Baclofen 10 mg PO QID 7 Days #28 10/01/19 [Rx] Carbidopa/Levodopa [Carbidopa-Levodopa 25-100 Tab] 1 each PO QID 7 Days #28 10/01/19 [Rx] Cyclobenzaprine [Flexeril] 5 mg PO TID 7 Days #21 10/01/19 [Rx] Gabapentin [Neurontin] 200 mg PO TID 7 Days #21 10/01/19 [Rx] HYDROmorphone [Dilaudid] 2 mg PO Q6H PRN 7 Days #28 10/01/19 [Rx] LORazepam [Ativan] 0.5 mg PO 1200,1600 7 Days #14 10/01/19 [Rx] LORazepam [Ativan] 0.5 mg PO Q6H PRN 7 Days #28 10/01/19 [Rx] LORazepam [Ativan] 1 mg PO 0800,1999 7 Days #14 10/01/19 [Rx] Terazosin [Hytrin] 5 mg PO BID cap 10/01/19 [Rx] busPIRone [Buspar] 15 mg PO BID 7 Days #14 tablet 10/01/19 [Rx] fentaNYL [Duragesic] 75 mcg TD Q72H 6 Days #2 patch 10/01/19 [Rx] polyethylene glycoL 3350 [MiraLAX] 17 gm PO DAILY packet 10/01/19 [Rx] traZODone HCl [Trazodone HCl] 100 mg PO BEDTIME 7 Days #7 10/01/19 [Rx] Oxygen Therapy Mode: Room Air Patient Handouts: COVID-19 Frequently Asked Questions, Sepsis, Diagnosis, Adult, Prevent the Spread of COVID-19 if You Are Sick - [facility] Referrals: Nik Hughes MD [Primary Care Provider] - 10/07/19 10:30 am (Please follow up with Dr. Hughes on October 06 at 10:30.) - Discharge Summary/Plan Comment DC Time >30 min.: Yes - General Info Date of Service: 10/01/19 Admission Dx/Problem (Free Text: Fall with rib fxs, left Subjective Update: patient has some left neck pain today but this is not unusual for him from time to time. His left chest pain is controlled. He is breathing well on room air, he is tolerating diet. Functional Status: Reports: Pain Controlled, Tolerating Diet, Ambulating, Urinating - Review of Systems General: Reports: No Symptoms HEENT: Reports: No Symptoms Pulmonary: Reports: No Symptoms Cardiovascular: Reports: No Symptoms Gastrointestinal: Reports: No Symptoms Genitourinary: Reports: No Symptoms Musculoskeletal: Reports: No Symptoms Skin: Reports: No Symptoms Neurological: Reports: No Symptoms - Patient Data Vitals - Most Recent: Last Vital Signs Temp 97.7 F 10/01/19 08:44 Pulse 84 10/01/19 08:44 Resp 20 10/01/19 08:44 BP 132/68 10/01/19 08:52 Pulse Ox 91 L 10/01/19 08:44 Weight - Most Recent: 81.647 kg I&O - Last 24 hours: Intake & Output 09/30/19 10/01/19 10/01/19 22:59 06:59 14:59 Intake Total 1360 600 Output Total 500 500 Balance 860 100 Lab Results - Last 24 hrs: Laboratory Results - last 24 hr 10/01/19 Range/Units 02:36 COVID-19 ([facility]) Negative (NEGATIVE) TYREE Results - Last 24 hrs: Microbiology 09/24/19 01:58 Aerobic Blood Culture - Final Blood NO GROWTH AFTER 7 DAYS Anaerobic Blood Culture - Final NO GROWTH AFTER 7 DAYS Med Orders - Current: Current Medications Acetaminophen (Tylenol) 650 mg PO Q6H PRN PRN Reason: Pain Last Admin: 09/30/19 18:11 Dose: 650 mg Documented by: Albuterol (Proventil Neb Soln) 2.5 mg NEB Q2H PRN PRN Reason: Shortness Of Breath/wheezing Baclofen (Lioresal) 10 mg PO QID [facility] Last Admin: 10/01/19 08:48 Dose: 10 mg Documented by: Bisacodyl (Dulcolax) 10 mg RECTAL DAILY PRN PRN Reason: Constipation Buspirone HCl (Buspar) 15 mg PO BID [facility] Last Admin: 10/01/19 08:48 Dose: 15 mg Documented by: Carbidopa/Levodopa (Sinemet 25-100 Mg) 1 tab PO QID [facility] Last Admin: 10/01/19 08:52 Dose: 1 tab Documented by: Celecoxib (Celebrex) 200 mg PO DAILY [facility] Last Admin: 10/01/19 08:53 Dose: 200 mg Documented by: Citalopram Hydrobromide (Celexa) 40 mg PO BEDTIME [facility] Last Admin: 09/30/19 20:06 Dose: 40 mg Documented by: Cyclobenzaprine HCl (Flexeril) 5 mg PO TID [facility] Last Admin: 10/01/19 08:48 Dose: 5 mg Documented by: Diclofenac Sodium (Voltaren 1% Gel) 2 gm TOP QID [facility] Last Admin: 10/01/19 08:55 Dose: 1 applic Documented by: Diphenhydramine HCl (Benadryl) 25 mg IVPUSH Q6H PRN PRN Reason: pruritis Last Admin: 09/18/19 22:18 Dose: 25 mg Documented by: Enoxaparin Sodium (Lovenox) 40 mg SUBCUT DAILY [facility] Last Admin: 10/01/19 08:53 Dose: 40 mg Documented by: Fentanyl (Duragesic) 75 mcg TRDERM Q72H [facility] Last Admin: 09/30/19 12:02 Dose: 75 mcg Documented by: Gabapentin (Neurontin) 200 mg PO TID [facility] Last Admin: 10/01/19 08:51 Dose: 200 mg Documented by: Hydromorphone HCl (Dilaudid) 2 mg PO Q6H PRN PRN Reason: Pain Last Admin: 09/30/19 05:35 Dose: 2 mg Documented by: Hydromorphone HCl (Dilaudid) 2 mg PO Q6H [facility] Last Admin: 10/01/19 09:03 Dose: 2 mg Documented by: Lorazepam (Ativan) 1 mg PO Q8H PRN PRN Reason: Anxiety Last Admin: 09/30/19 03:33 Dose: 1 mg Documented by: Lorazepam (Ativan) 1 mg PO BID@0800,2000 [facility] Last Admin: 10/01/19 08:46 Dose: 1 mg Documented by: Lorazepam (Ativan) 0.5 mg PO BID@1200,1600 [facility] Last Admin: 09/30/19 15:32 Dose: 0.5 mg Documented by: Lorazepam (Ativan) 0.5 mg PO Q6H PRN PRN Reason: Anxiety Last Admin: 10/01/19 03:00 Dose: 0.5 mg Documented by: Losartan Potassium (Cozaar) 50 mg PO DAILY [facility] Last Admin: 10/01/19 08:50 Dose: 50 mg Documented by: Magnesium Oxide (Magnesium Oxide) 400 mg PO BID [facility] Last Admin: 10/01/19 08:52 Dose: 400 mg Documented by: Miscellaneous Information (Remove Patch) 1 ea TRDERM Q72H [facility] Last Admin: 09/30/19 12:09 Dose: 1 ea Documented by: Ondansetron HCl (Zofran Odt) 4 mg PO Q4H PRN PRN Reason: nausea, able to take PO Polyethylene Glycol (Miralax) 17 gm PO DAILY [facility] Last Admin: 10/01/19 08:49 Dose: 17 gm Documented by: Senna/Docusate Sodium (Senna Plus) 1 tab PO TID PRN PRN Reason: Constipation Last Admin: 09/25/19 20:14 Dose: 1 tab Documented by: Simvastatin (Zocor) 20 mg PO BEDTIME [facility] Last Admin: 09/30/19 20:05 Dose: 20 mg Documented by: Terazosin HCl (Hytrin) 5 mg PO BID [facility] Last Admin: 10/01/19 08:52 Dose: 5 mg Documented by: Trazodone HCl (Trazodone) 100 mg PO BEDTIME [facility] Last Admin: 09/30/19 20:06 Dose: 100 mg Documented by: Discontinued Medications Buspirone HCl (Buspar) 7.5 mg PO BID [facility] Last Admin: 09/25/19 09:21 Dose: 7.5 mg Documented by: Ephedrine Sulfate (Ephedrine Sulfate) 5 mg IVPUSH ASDIRECTED PRN PRN Reason: Hypotension Fentanyl (Sublimaze) 100 mcg EPIDUR Q3H PRN PRN Reason: Pain Last Admin: 09/20/19 10:44 Dose: 100 mcg Documented by: Fentanyl (Duragesic) 75 mcg TRDERM Q72H [facility] Fentanyl/Bupivacaine HCl (Fentanyl/Bupivacaine/Ns 2 Mcg-0.125% 100 Ml) 100 ml EPIDUR ASDIRECTED PRN PRN Reason: Pain Last Admin: 09/20/19 08:22 Dose: 100 ml Documented by: Gabapentin (Neurontin) 200 mg PO TID [facility] Heparin Sodium (Porcine) (Heparin Sodium) 5,000 units SUBCUT Q8H [facility] Last Admin: 09/22/19 08:19 Dose: Not Given Documented by: Heparin Sodium (Porcine) (Heparin Sodium) 5,000 units SUBCUT Q8H [facility] Last Admin: 09/27/19 18:18 Dose: 5,000 units Documented by: Hydromorphone HCl (Dilaudid) 0.5 mg IVPUSH ONETIME ONE Stop: 09/16/19 21:03 Last Admin: 09/16/19 21:19 Dose: 0.5 mg Documented by: Hydromorphone HCl (Dilaudid) 1 mg IVPUSH Q2H PRN PRN Reason: Pain (severe 7-10) Last Admin: 09/18/19 09:22 Dose: 1 mg Documented by: Hydromorphone HCl (Dilaudid) 1 mg IVPUSH Q2H PRN PRN Reason: Pain (severe 7-10) Hydromorphone HCl (Dilaudid) 2 mg PO TID [facility] Last Admin: 09/21/19 08:12 Dose: 2 mg Documented by: Hydromorphone HCl (Dilaudid) 2 mg PO Q4H [facility] Hydromorphone HCl (Dilaudid) 2 mg PO Q4H PRN PRN Reason: Chest Pain Hydromorphone HCl (Dilaudid) 2 mg PO Q4H [facility] Hydromorphone HCl (Dilaudid) 2 mg PO Q4H [facility] Last Admin: 09/22/19 10:07 Dose: 2 mg Documented by: Dextrose/Sodium Chloride (Dextrose 5%-Normal Saline) 1,000 mls @ 150 mls/hr IV ASDIRECTED [facility] Last Infusion: 09/17/19 00:05 Dose: 50 mls/hr Documented by: Dextrose/Sodium Chloride (Dextrose 5%-1/2 Ns) 1,000 mls @ 50 mls/hr IV ASDIRECTED [facility] Last Infusion: 09/18/19 08:55 Dose: 75 mls/hr Documented by: Sodium Chloride (Normal Saline) 250 mls @ 249.723 mls/hr IV ASDIRECTED [facility] Dextrose/Sodium Chloride (Dextrose 5%-1/2 Ns) 1,000 mls @ 50 mls/hr IV ASDIRECTED [facility] Last Admin: 09/22/19 02:35 Dose: 50 mls/hr Documented by: Magnesium Sulfate/Dextrose 1 (gm/ Premix) 100 mls @ 100 mls/hr IV Q1H ONE Stop: 09/20/19 18:14 Last Admin: 09/20/19 17:19 Dose: 100 mls/hr Documented by: Magnesium Sulfate 2 gm/ Premix 50 mls @ 25 mls/hr IV ONETIME ONE Stop: 09/21/19 18:14 Last Admin: 09/21/19 16:23 Dose: 25 mls/hr Documented by: Sodium Chloride (Normal Saline) 1,000 mls @ 500 mls/hr IV ONETIME ONE Stop: 09/24/19 04:02 Last Admin: 09/24/19 02:47 Dose: 500 mls/hr Documented by: Lidocaine/Epinephrine (Xylocaine-Mpf 1.5% W/Epinephrine 1:200,000) 5 ml .ROUTE .STK-MED ONE Stop: 09/17/19 16:01 Lorazepam (Ativan) 0.5 mg PO 1200,1600 [facility] Magnesium Oxide (Magnesium Oxide) 800 mg PO ONETIME ONE Stop: 09/18/19 08:46 Last Admin: 09/18/19 09:10 Dose: 800 mg Documented by: Morphine Sulfate (Duramorph Pf) 5 mg EPIDUR Q6H PRN PRN Reason: Pain Last Admin: 09/20/19 22:11 Dose: 5 mg Documented by: Morphine Sulfate (Duramorph Pf) Confirm Administered Dose 10 mg .ROUTE .STK-MED ONE Stop: 09/20/19 22:04 Ondansetron HCl (Zofran) 4 mg IVPUSH ONETIME ONE Stop: 09/16/19 21:03 Last Admin: 09/16/19 21:14 Dose: 4 mg Documented by: - Exam General: Reports: Alert, Oriented, Cooperative Lungs: Reports: Clear to Auscultation, Normal Respiratory Effort, Other (left chest wall tenderness) Cardiovascular: Reports: Regular Rate, Regular Rhythm GI/Abdominal Exam: Soft, Non-Tender, No Organomegaly
[2019-10-01] MEDS: LORazepam 0.5 MG Tab PO SCH (12:08)
--- NOTE | 2019-10-06 10:44 | PCM.PN ---
- General Info Date of Service: 09/26/19 Admission Dx/Problem (Free Text): Fall with rib fxs, left Subjective Update: Patient doing well. Still has left chest pain, tolerating diet, no fevers, chills or nausea/vomiting Functional Status: Reports: Pain Controlled, Tolerating Diet, Ambulating, Urinating - Review of Systems General: Reports: No Symptoms HEENT: Reports: No Symptoms Pulmonary: Reports: Other (left chest pain) Cardiovascular: Reports: No Symptoms Gastrointestinal: Reports: No Symptoms Genitourinary: Reports: No Symptoms Musculoskeletal: Reports: No Symptoms Skin: Reports: No Symptoms Psychiatric: Reports: Other (Parkinson's disease) - Patient Data Vitals - Most Recent: Last Vital Signs Temp 98.1 F 10/01/19 11:12 Pulse 96 10/01/19 11:12 Resp 20 10/01/19 11:12 BP 113/80 10/01/19 11:12 Pulse Ox 91 L 10/01/19 11:12 Weight - Most Recent: 81.647 kg Med Orders - Current: Current Medications Discontinued Medications Acetaminophen (Tylenol) 650 mg PO Q6H PRN PRN Reason: Pain Last Admin: 09/30/19 18:11 Dose: 650 mg Documented by: Albuterol (Proventil Neb Soln) 2.5 mg NEB Q2H PRN PRN Reason: Shortness Of Breath/wheezing Baclofen (Lioresal) 10 mg PO QID [facility] Last Admin: 10/01/19 12:09 Dose: 10 mg Documented by: Bisacodyl (Dulcolax) 10 mg RECTAL DAILY PRN PRN Reason: Constipation Last Admin: 10/01/19 10:36 Dose: 10 mg Documented by: Buspirone HCl (Buspar) 7.5 mg PO BID [facility] Last Admin: 09/25/19 09:21 Dose: 7.5 mg Documented by: Buspirone HCl (Buspar) 15 mg PO BID [facility] Last Admin: 10/01/19 08:48 Dose: 15 mg Documented by: Carbidopa/Levodopa (Sinemet 25-100 Mg) 1 tab PO QID [facility] Last Admin: 10/01/19 12:08 Dose: 1 tab Documented by: Celecoxib (Celebrex) 200 mg PO DAILY [facility] Last Admin: 10/01/19 08:53 Dose: 200 mg Documented by: Citalopram Hydrobromide (Celexa) 40 mg PO BEDTIME [facility] Last Admin: 09/30/19 20:06 Dose: 40 mg Documented by: Cyclobenzaprine HCl (Flexeril) 5 mg PO TID [facility] Last Admin: 10/01/19 08:48 Dose: 5 mg Documented by: Diclofenac Sodium (Voltaren 1% Gel) 2 gm TOP QID [facility] Last Admin: 10/01/19 12:09 Dose: 1 applic Documented by: Diphenhydramine HCl (Benadryl) 25 mg IVPUSH Q6H PRN PRN Reason: pruritis Last Admin: 09/18/19 22:18 Dose: 25 mg Documented by: Enoxaparin Sodium (Lovenox) 40 mg SUBCUT DAILY [facility] Last Admin: 10/01/19 08:53 Dose: 40 mg Documented by: Ephedrine Sulfate (Ephedrine Sulfate) 5 mg IVPUSH ASDIRECTED PRN PRN Reason: Hypotension Fentanyl (Duragesic) 75 mcg TRDERM Q72H [facility] Last Admin: 09/30/19 12:02 Dose: 75 mcg Documented by: Fentanyl (Sublimaze) 100 mcg EPIDUR Q3H PRN PRN Reason: Pain Last Admin: 09/20/19 10:44 Dose: 100 mcg Documented by: Fentanyl (Duragesic) 75 mcg TRDERM Q72H [facility] Fentanyl/Bupivacaine HCl (Fentanyl/Bupivacaine/Ns 2 Mcg-0.125% 100 Ml) 100 ml EPIDUR ASDIRECTED PRN PRN Reason: Pain Last Admin: 09/20/19 08:22 Dose: 100 ml Documented by: Gabapentin (Neurontin) 200 mg PO TID [facility] Last Admin: 10/01/19 08:51 Dose: 200 mg Documented by: Gabapentin (Neurontin) 200 mg PO TID [facility] Heparin Sodium (Porcine) (Heparin Sodium) 5,000 units SUBCUT Q8H [facility] Last Admin: 09/22/19 08:19 Dose: Not Given Documented by: Heparin Sodium (Porcine) (Heparin Sodium) 5,000 units SUBCUT Q8H [facility] Last Admin: 09/27/19 18:18 Dose: 5,000 units Documented by: Hydromorphone HCl (Dilaudid) 0.5 mg IVPUSH ONETIME ONE Stop: 09/16/19 21:03 Last Admin: 09/16/19 21:19 Dose: 0.5 mg Documented by: Hydromorphone HCl (Dilaudid) 1 mg IVPUSH Q2H PRN PRN Reason: Pain (severe 7-10) Last Admin: 09/18/19 09:22 Dose: 1 mg Documented by: Hydromorphone HCl (Dilaudid) 1 mg IVPUSH Q2H PRN PRN Reason: Pain (severe 7-10) Hydromorphone HCl (Dilaudid) 2 mg PO Q6H PRN PRN Reason: Pain Last Admin: 09/30/19 05:35 Dose: 2 mg Documented by: Hydromorphone HCl (Dilaudid) 2 mg PO TID [facility] Last Admin: 09/21/19 08:12 Dose: 2 mg Documented by: Hydromorphone HCl (Dilaudid) 2 mg PO Q4H [facility] Hydromorphone HCl (Dilaudid) 2 mg PO Q4H PRN PRN Reason: Chest Pain Hydromorphone HCl (Dilaudid) 2 mg PO Q4H [facility] Hydromorphone HCl (Dilaudid) 2 mg PO Q4H [facility] Last Admin: 09/22/19 10:07 Dose: 2 mg Documented by: Hydromorphone HCl (Dilaudid) 2 mg PO Q6H [facility] Last Admin: 10/01/19 09:03 Dose: 2 mg Documented by: Dextrose/Sodium Chloride (Dextrose 5%-Normal Saline) 1,000 mls @ 150 mls/hr IV ASDIRECTED [facility] Last Infusion: 09/17/19 00:05 Dose: 50 mls/hr Documented by: Dextrose/Sodium Chloride (Dextrose 5%-1/2 Ns) 1,000 mls @ 50 mls/hr IV ASDIRECTED [facility] Last Infusion: 09/18/19 08:55 Dose: 75 mls/hr Documented by: Sodium Chloride (Normal Saline) 250 mls @ 249.723 mls/hr IV ASDIRECTED [facility] Dextrose/Sodium Chloride (Dextrose 5%-1/2 Ns) 1,000 mls @ 50 mls/hr IV ASDIRECTED [facility] Last Admin: 09/22/19 02:35 Dose: 50 mls/hr Documented by: Magnesium Sulfate/Dextrose 1 (gm/ Premix) 100 mls @ 100 mls/hr IV Q1H ONE Stop: 09/20/19 18:14 Last Admin: 09/20/19 17:19 Dose: 100 mls/hr Documented by: Magnesium Sulfate 2 gm/ Premix 50 mls @ 25 mls/hr IV ONETIME ONE Stop: 09/21/19 18:14 Last Admin: 09/21/19 16:23 Dose: 25 mls/hr Documented by: Sodium Chloride (Normal Saline) 1,000 mls @ 500 mls/hr IV ONETIME ONE Stop: 09/24/19 04:02 Last Admin: 09/24/19 02:47 Dose: 500 mls/hr Documented by: Lidocaine/Epinephrine (Xylocaine-Mpf 1.5% W/Epinephrine 1:200,000) 5 ml .ROUTE .STK-MED ONE Stop: 09/17/19 16:01 Lorazepam (Ativan) 1 mg PO Q8H PRN PRN Reason: Anxiety Last Admin: 09/30/19 03:33 Dose: 1 mg Documented by: Lorazepam (Ativan) 0.5 mg PO 1200,1600 [facility] Lorazepam (Ativan) 1 mg PO BID@0800,2000 [facility] Last Admin: 10/01/19 08:46 Dose: 1 mg Documented by: Lorazepam (Ativan) 0.5 mg PO BID@1200,1600 [facility] Last Admin: 10/01/19 12:08 Dose: 0.5 mg Documented by: Lorazepam (Ativan) 0.5 mg PO Q6H PRN PRN Reason: Anxiety Last Admin: 10/01/19 03:00 Dose: 0.5 mg Documented by: Losartan Potassium (Cozaar) 50 mg PO DAILY [facility] Last Admin: 10/01/19 08:50 Dose: 50 mg Documented by: Magnesium Oxide (Magnesium Oxide) 800 mg PO ONETIME ONE Stop: 09/18/19 08:46 Last Admin: 09/18/19 09:10 Dose: 800 mg Documented by: Magnesium Oxide (Magnesium Oxide) 400 mg PO BID [facility] Last Admin: 10/01/19 08:52 Dose: 400 mg Documented by: Miscellaneous Information (Remove Patch) 1 ea TRDERM Q72H [facility] Last Admin: 09/30/19 12:09 Dose: 1 ea Documented by: Morphine Sulfate (Duramorph Pf) 5 mg EPIDUR Q6H PRN PRN Reason: Pain Last Admin: 09/20/19 22:11 Dose: 5 mg Documented by: Morphine Sulfate (Duramorph Pf) Confirm Administered Dose 10 mg .ROUTE .STK-MED ONE Stop: 09/20/19 22:04 Ondansetron HCl (Zofran) 4 mg IVPUSH ONETIME ONE Stop: 09/16/19 21:03 Last Admin: 09/16/19 21:14 Dose: 4 mg Documented by: Ondansetron HCl (Zofran Odt) 4 mg PO Q4H PRN PRN Reason: nausea, able to take PO Polyethylene Glycol (Miralax) 17 gm PO DAILY [facility] Last Admin: 10/01/19 08:49 Dose: 17 gm Documented by: Senna/Docusate Sodium (Senna Plus) 1 tab PO TID PRN PRN Reason: Constipation Last Admin: 09/25/19 20:14 Dose: 1 tab Documented by: Simvastatin (Zocor) 20 mg PO BEDTIME [facility] Last Admin: 09/30/19 20:05 Dose: 20 mg Documented by: Terazosin HCl (Hytrin) 5 mg PO BID [facility] Last Admin: 10/01/19 08:52 Dose: 5 mg Documented by: Trazodone HCl (Trazodone) 100 mg PO BEDTIME [facility] Last Admin: 09/30/19 20:06 Dose: 100 mg Documented by: - Exam General: Alert, Oriented, Cooperative Lungs: Normal Respiratory Effort Cardiovascular: Regular Rate, Regular Rhythm, No Murmurs GI/Abdominal Exam: Soft, Non-Tender, No Organomegaly, No Distention, No Abnormal Bruit, No Mass Sepsis Event Note - Evaluation Sepsis Screening Result: No Definite Risk - Problem List Review Problem List Initiated/Reviewed/Updated: No - Assessment Assessment:: Left sided rib fractures s/p fall from standing onto a wooden chair on 09/15 - Pain improving Parkinson's disease - chronic - Plan Plan:: Pain - continue home dilaudid 2 mg Q6H and fentanyl patch 75 mcg - Continue PO dilaudid to 2mg Q6H PRN Psychiatric - Continue home Parkinson's meds and all other meds per psyshiatry Cardiovascular - continue to monitor for signs of hypoperfusion. Doing well. - encourage fluid intake. Respiratory - Continue aggressive pulmonary hygiene including IS, sitting upright. GI - regular diet - continue Miralax - No need for IVF - UA mixed. not concerning for acute infection, likely due to colonization. No need to actively treat - voiding spontaneously ID - Coronavirus test negative on 09/15 and 09/23 - fevers resolved. - WBC is normal, lactate normal - No concern for active infection right now. We will continue to monitor Dispo: will dc to SNF when ready.
--- NOTE | 2019-10-06 10:49 | PCM.PN ---
- General Info Date of Service: 10/01/19 Admission Dx/Problem (Free Text): Fall with rib fxs, left Subjective Update: Patient has left neck pain today. Otherwise doing well. pain is controlled. Tolerating diet no fevers or chills Functional Status: Reports: Pain Controlled, Tolerating Diet, Ambulating, Urinating - Review of Systems General: Reports: No Symptoms HEENT: Reports: No Symptoms Pulmonary: Reports: Other (left sided chest pain) Cardiovascular: Reports: No Symptoms Gastrointestinal: Reports: No Symptoms Genitourinary: Reports: No Symptoms Musculoskeletal: Reports: No Symptoms Skin: Reports: No Symptoms Psychiatric: Reports: Other (Parkinson's disease) - Patient Data Vitals - Most Recent: Last Vital Signs Temp 98.1 F 10/01/19 11:12 Pulse 96 10/01/19 11:12 Resp 20 10/01/19 11:12 BP 113/80 10/01/19 11:12 Pulse Ox 91 L 10/01/19 11:12 Weight - Most Recent: 81.647 kg Med Orders - Current: Current Medications Discontinued Medications Acetaminophen (Tylenol) 650 mg PO Q6H PRN PRN Reason: Pain Last Admin: 09/30/19 18:11 Dose: 650 mg Documented by: Albuterol (Proventil Neb Soln) 2.5 mg NEB Q2H PRN PRN Reason: Shortness Of Breath/wheezing Baclofen (Lioresal) 10 mg PO QID [facility] Last Admin: 10/01/19 12:09 Dose: 10 mg Documented by: Bisacodyl (Dulcolax) 10 mg RECTAL DAILY PRN PRN Reason: Constipation Last Admin: 10/01/19 10:36 Dose: 10 mg Documented by: Buspirone HCl (Buspar) 7.5 mg PO BID [facility] Last Admin: 09/25/19 09:21 Dose: 7.5 mg Documented by: Buspirone HCl (Buspar) 15 mg PO BID [facility] Last Admin: 10/01/19 08:48 Dose: 15 mg Documented by: Carbidopa/Levodopa (Sinemet 25-100 Mg) 1 tab PO QID [facility] Last Admin: 10/01/19 12:08 Dose: 1 tab Documented by: Celecoxib (Celebrex) 200 mg PO DAILY [facility] Last Admin: 10/01/19 08:53 Dose: 200 mg Documented by: Citalopram Hydrobromide (Celexa) 40 mg PO BEDTIME [facility] Last Admin: 09/30/19 20:06 Dose: 40 mg Documented by: Cyclobenzaprine HCl (Flexeril) 5 mg PO TID [facility] Last Admin: 10/01/19 08:48 Dose: 5 mg Documented by: Diclofenac Sodium (Voltaren 1% Gel) 2 gm TOP QID [facility] Last Admin: 10/01/19 12:09 Dose: 1 applic Documented by: Diphenhydramine HCl (Benadryl) 25 mg IVPUSH Q6H PRN PRN Reason: pruritis Last Admin: 09/18/19 22:18 Dose: 25 mg Documented by: Enoxaparin Sodium (Lovenox) 40 mg SUBCUT DAILY [facility] Last Admin: 10/01/19 08:53 Dose: 40 mg Documented by: Ephedrine Sulfate (Ephedrine Sulfate) 5 mg IVPUSH ASDIRECTED PRN PRN Reason: Hypotension Fentanyl (Duragesic) 75 mcg TRDERM Q72H [facility] Last Admin: 09/30/19 12:02 Dose: 75 mcg Documented by: Fentanyl (Sublimaze) 100 mcg EPIDUR Q3H PRN PRN Reason: Pain Last Admin: 09/20/19 10:44 Dose: 100 mcg Documented by: Fentanyl (Duragesic) 75 mcg TRDERM Q72H [facility] Fentanyl/Bupivacaine HCl (Fentanyl/Bupivacaine/Ns 2 Mcg-0.125% 100 Ml) 100 ml EPIDUR ASDIRECTED PRN PRN Reason: Pain Last Admin: 09/20/19 08:22 Dose: 100 ml Documented by: Gabapentin (Neurontin) 200 mg PO TID [facility] Last Admin: 10/01/19 08:51 Dose: 200 mg Documented by: Gabapentin (Neurontin) 200 mg PO TID [facility] Heparin Sodium (Porcine) (Heparin Sodium) 5,000 units SUBCUT Q8H [facility] Last Admin: 09/22/19 08:19 Dose: Not Given Documented by: Heparin Sodium (Porcine) (Heparin Sodium) 5,000 units SUBCUT Q8H [facility] Last Admin: 09/27/19 18:18 Dose: 5,000 units Documented by: Hydromorphone HCl (Dilaudid) 0.5 mg IVPUSH ONETIME ONE Stop: 09/16/19 21:03 Last Admin: 09/16/19 21:19 Dose: 0.5 mg Documented by: Hydromorphone HCl (Dilaudid) 1 mg IVPUSH Q2H PRN PRN Reason: Pain (severe 7-10) Last Admin: 09/18/19 09:22 Dose: 1 mg Documented by: Hydromorphone HCl (Dilaudid) 1 mg IVPUSH Q2H PRN PRN Reason: Pain (severe 7-10) Hydromorphone HCl (Dilaudid) 2 mg PO Q6H PRN PRN Reason: Pain Last Admin: 09/30/19 05:35 Dose: 2 mg Documented by: Hydromorphone HCl (Dilaudid) 2 mg PO TID [facility] Last Admin: 09/21/19 08:12 Dose: 2 mg Documented by: Hydromorphone HCl (Dilaudid) 2 mg PO Q4H [facility] Hydromorphone HCl (Dilaudid) 2 mg PO Q4H PRN PRN Reason: Chest Pain Hydromorphone HCl (Dilaudid) 2 mg PO Q4H [facility] Hydromorphone HCl (Dilaudid) 2 mg PO Q4H [facility] Last Admin: 09/22/19 10:07 Dose: 2 mg Documented by: Hydromorphone HCl (Dilaudid) 2 mg PO Q6H [facility] Last Admin: 10/01/19 09:03 Dose: 2 mg Documented by: Dextrose/Sodium Chloride (Dextrose 5%-Normal Saline) 1,000 mls @ 150 mls/hr IV ASDIRECTED [facility] Last Infusion: 09/17/19 00:05 Dose: 50 mls/hr Documented by: Dextrose/Sodium Chloride (Dextrose 5%-1/2 Ns) 1,000 mls @ 50 mls/hr IV ASDIRECTED [facility] Last Infusion: 09/18/19 08:55 Dose: 75 mls/hr Documented by: Sodium Chloride (Normal Saline) 250 mls @ 249.723 mls/hr IV ASDIRECTED [facility]AS[facility] Dextrose/Sodium Chloride (Dextrose 5%-1/2 Ns) 1,000 mls @ 50 mls/hr IV ASDIRECTED [facility] Last Admin: 09/22/19 02:35 Dose: 50 mls/hr Documented by: Magnesium Sulfate/Dextrose 1 (gm/ Premix) 100 mls @ 100 mls/hr IV Q1H ONE Stop: 09/20/19 18:14 Last Admin: 09/20/19 17:19 Dose: 100 mls/hr Documented by: Magnesium Sulfate 2 gm/ Premix 50 mls @ 25 mls/hr IV ONETIME ONE Stop: 09/21/19 18:14 Last Admin: 09/21/19 16:23 Dose: 25 mls/hr Documented by: Sodium Chloride (Normal Saline) 1,000 mls @ 500 mls/hr IV ONETIME ONE Stop: 09/24/19 04:02 Last Admin: 09/24/19 02:47 Dose: 500 mls/hr Documented by: Lidocaine/Epinephrine (Xylocaine-Mpf 1.5% W/Epinephrine 1:200,000) 5 ml .ROUTE .STK-MED ONE Stop: 09/17/19 16:01 Lorazepam (Ativan) 1 mg PO Q8H PRN PRN Reason: Anxiety Last Admin: 09/30/19 03:33 Dose: 1 mg Documented by: Lorazepam (Ativan) 0.5 mg PO 1200,1600 [facility] Lorazepam (Ativan) 1 mg PO BID@0800,2000 [facility] Last Admin: 10/01/19 08:46 Dose: 1 mg Documented by: Lorazepam (Ativan) 0.5 mg PO BID@1200,1600 [facility] Last Admin: 10/01/19 12:08 Dose: 0.5 mg Documented by: Lorazepam (Ativan) 0.5 mg PO Q6H PRN PRN Reason: Anxiety Last Admin: 10/01/19 03:00 Dose: 0.5 mg Documented by: Losartan Potassium (Cozaar) 50 mg PO DAILY [facility] Last Admin: 10/01/19 08:50 Dose: 50 mg Documented by: Magnesium Oxide (Magnesium Oxide) 800 mg PO ONETIME ONE Stop: 09/18/19 08:46 Last Admin: 09/18/19 09:10 Dose: 800 mg Documented by: Magnesium Oxide (Magnesium Oxide) 400 mg PO BID [facility] Last Admin: 10/01/19 08:52 Dose: 400 mg Documented by: Miscellaneous Information (Remove Patch) 1 ea TRDERM Q72H [facility] Last Admin: 09/30/19 12:09 Dose: 1 ea Documented by: Morphine Sulfate (Duramorph Pf) 5 mg EPIDUR Q6H PRN PRN Reason: Pain Last Admin: 09/20/19 22:11 Dose: 5 mg Documented by: Morphine Sulfate (Duramorph Pf) Confirm Administered Dose 10 mg .ROUTE .STK-MED ONE Stop: 09/20/19 22:04 Ondansetron HCl (Zofran) 4 mg IVPUSH ONETIME ONE Stop: 09/16/19 21:03 Last Admin: 09/16/19 21:14 Dose: 4 mg Documented by: Ondansetron HCl (Zofran Odt) 4 mg PO Q4H PRN PRN Reason: nausea, able to take PO Polyethylene Glycol (Miralax) 17 gm PO DAILY [facility] Last Admin: 10/01/19 08:49 Dose: 17 gm Documented by: Senna/Docusate Sodium (Senna Plus) 1 tab PO TID PRN PRN Reason: Constipation Last Admin: 09/25/19 20:14 Dose: 1 tab Documented by: Simvastatin (Zocor) 20 mg PO BEDTIME [facility] Last Admin: 09/30/19 20:05 Dose: 20 mg Documented by: Terazosin HCl (Hytrin) 5 mg PO BID [facility] Last Admin: 10/01/19 08:52 Dose: 5 mg Documented by: Trazodone HCl (Trazodone) 100 mg PO BEDTIME [facility] Last Admin: 09/30/19 20:06 Dose: 100 mg Documented by: - Exam General: Alert, Oriented, Cooperative Lungs: Clear to Auscultation, Normal Respiratory Effort Cardiovascular: Regular Rate, Regular Rhythm, No Murmurs GI/Abdominal Exam: Soft, Non-Tender, No Organomegaly, No Distention Sepsis Event Note - Evaluation Sepsis Screening Result: No Definite Risk - Problem List Review Problem List Initiated/Reviewed/Updated: No - Assessment Assessment:: Left sided rib fractures s/p fall from standing onto a wooden chair on 09/15 - Pain improving Parkinson's disease - chronic - Plan Plan:: Pain - continue home dilaudid 2 mg Q6H and fentanyl patch 75 mcg - Continue PO dilaudid to 2mg Q6H PRN Psychiatric - Continue home Parkinson's meds and all other meds per psyshiatry - Patient is alert, oriented x 4 and appropriate on my exam this AM. I recommended he consider going to a [facility] facility for rehab. He is agreeable to go to [facility]. - He was exposed to COVID, making it necessary to stay hospitalized during his quarantine. Plan discharge on September 30 Cardiovascular - continue to monitor for signs of hypoperfusion. Doing well. - encourage fluid intake. Respiratory - Continue aggressive pulmonary hygiene including IS, sitting upright. GI - regular diet - continue Miralax - No need for IVF - UA mixed. not concerning for acute infection, likely due to colonization. No need to actively treat - voiding spontaneously ID - Coronavirus test negative on 09/15 and 09/23 - fevers resolved. - WBC is normal, lactate normal - No concern for active infection right now. We will continue to monitor Dispo: Then will likely dc to SNF September 30
== END 2019-10-01 13:30 | DRG 184 ==
LOC: JD.ED 20:45 → JD.ICU 23:15 → JD.MS 09-23 16:34
PROVIDERS: ADMIT Surgery; ATTEND Surgery
PROC: 3E0R3BZ Introduction of Anesthetic Agent into Spinal Canal, Percutaneous Approach (ICD-10-PCS; principal; 2019-09-17)
PROC: 3E0R33Z Introduction of Anti-inflammatory into Spinal Canal, Percutaneous Approach (ICD-10-PCS; 2019-09-17)
PROC: 00HU33Z Insertion of Infusion Device into Spinal Canal, Percutaneous Approach (ICD-10-PCS; 2019-09-17)
DX: S22.42XA Multiple fractures of ribs, left side, initial encounter for closed fracture (principal); G23.1 Progressive supranuclear ophthalmoplegia [Steele-Richardson-Olszewski]; E78.00 Pure hypercholesterolemia, unspecified; I10 Essential (primary) hypertension; K21.9 Gastro-esophageal reflux disease without esophagitis; Z20.828 Contact with and (suspected) exposure to other viral communicable diseases; K44.9 Diaphragmatic hernia without obstruction or gangrene; G47.30 Sleep apnea, unspecified; Z66 Do not resuscitate; F41.1 Generalized anxiety disorder; F32.9 Major depressive disorder, single episode, unspecified; H54.7 Unspecified visual loss; G89.29 Other chronic pain; R13.10 Dysphagia, unspecified; G25.81 Restless legs syndrome; F41.9 Anxiety disorder, unspecified; G47.00 Insomnia, unspecified; N40.0 Benign prostatic hyperplasia without lower urinary tract symptoms; M19.90 Unspecified osteoarthritis, unspecified site; M54.2 Cervicalgia; G20 Parkinson's disease; W01.190A Fall on same level from slipping, tripping and stumbling with subsequent striking against furniture, initial encounter; Y92.009 Unspecified place in unspecified non-institutional (private) residence as the place of occurrence of the external cause; Z79.899 Other long term (current) drug therapy
CPT/HCPCS: 36415; 71260; 74177; 80053; 83690; 84153; 85025; 86850; 86900; 86901; 96374; 96375; 99285; J1170; J2405; J7042; U0002; 01996; 51702; 71045; 71045-26; 80048; 81001; 83605; 83735; 84100; 87040; 87086; 87186; 92610-GN; 94762; 97110-GO; 97110-GP; 97116-GP; 97162-GP; 97166-GO; 97530-GO; 97530-GP; 97535-GO; A9270-GY; J1200; J1644; J1650; J2270; J2274; J3010; J3475; J7030

== ENCOUNTER 2019-10-20 00:25 | Inpatient (IN) | payer MEDICARE, BC ==
[2019-10-20] MEDS ORDERED: Dextrose 5%-0.9% NaCl 1,000 ML IV SCH (00:45)
--- NOTE | 2019-10-20 00:47 | EDM.PDOC ---
ED HPI GENERAL MEDICAL PROBLEM - General Chief Complaint: Fever Stated Complaint: [facility] Time Seen by Provider: 10/20/19 00:35 Source of Information: Reports: EMS, [facility] Records History Limitations: Reports: Other (unresponsive. ) - History of Present Illness INITIAL COMMENTS - FREE TEXT/NARRATIVE: 64-year-old male from [facility] presents to the ED per [facility] with reported new onset of high fever. Temperature reportedly greater than 101.6 at the [facility]. On arrival the patient is in moribund condition and is unresponsive to verbal or physical interaction. He is very warm to palpation. Vitals show temperature of 37.7. Heart rate of 82. Respiratory of 13 i.e. hypocapnia. BP is 86/52 O2 is 80%. Patient rules in for sepsis protocol. Patient is DNR/DNI status. His sister has power of commercial attorney and we will contact her to respect her wishes in regards to aggressive treatment/management. Concern at this time is whether he may be a COVID-19 patient. Apparently he had testing done last week Friday--oct 14 which was reportedly negative. 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 His condition is extremely poor.). Denies: Activity, Exercise, Lifting, Sick Contact, Trauma Associated Symptoms: Reports: Other (And presents to the ED unresponsive to verbal and physical stimuli. He is hypotensive and hypoxic with a fever on initial assessment.) Treatments DEVELOPER ARCHITECT: Reports: Acetaminophen (Tylenol 650mg was reportedly given at 2315 at the [facility]. ), Other (see below) - Related Data Allergies Allergy/AdvReac Type Severity Reaction Status Date / Time No Known Allergies Allergy Verified 10/20/19 17:37 Home Meds: Home Meds Acetaminophen [Tylenol Arthritis Pain] 650 mg PO Q6H PRN 09/16/19 [History] Celecoxib [CeleBREX] 200 mg PO DAILY 09/16/19 [History] Diclofenac Sodium [Voltaren 1% Gel] 2 gm TOP QID 09/16/19 [History] Escitalopram Oxalate [Lexapro] 20 mg PO BEDTIME 09/16/19 [History] Losartan [Cozaar] 50 mg PO DAILY 09/16/19 [History] Magnesium Oxide [Magnesium] 400 mg PO BID 09/16/19 [History] Simvastatin 20 mg PO BEDTIME 09/16/19 [History] Baclofen 10 mg PO QID 7 Days #28 10/01/19 [Rx] Carbidopa/Levodopa [Carbidopa-Levodopa 25-100 Tab] 1 each PO QID 7 Days #28 10/01/19 [Rx] Cyclobenzaprine [Flexeril] 5 mg PO TID 7 Days #21 10/01/19 [Rx] Gabapentin [Neurontin] 200 mg PO TID 7 Days #21 10/01/19 [Rx] HYDROmorphone [Dilaudid] 2 mg PO Q6H PRN 7 Days #28 10/01/19 [Rx] Terazosin [Hytrin] 5 mg PO BID cap 10/01/19 [Rx] busPIRone [Buspar] 15 mg PO BID 7 Days #14 tablet 10/01/19 [Rx] fentaNYL [Duragesic] 75 mcg TD Q72H 6 Days #2 patch 10/01/19 [Rx] polyethylene glycoL 3350 [MiraLAX] 17 gm PO DAILY packet 10/01/19 [Rx] traZODone HCl [Trazodone HCl] 100 mg PO BEDTIME 7 Days #7 10/01/19 [Rx] LORazepam [Ativan] 1 mg PO QID 10/20/19 [History] Sennosides/Docusate Sodium [Senna Plus Tablet] 1 each PO TID PRN 10/20/19 [History] Past Medical History HEENT History: Reports: Impaired Vision Other HEENT History: Wears glasses Cardiovascular History: Reports: High Cholesterol, Hypertension Respiratory History: Reports: Intubation, Previous Gastrointestinal History: Reports: GERD, Hiatal Hernia Genitourinary History: Reports: BPH, Retention, Urinary Musculoskeletal History: Reports: Arthritis, Neck Pain, Chronic, Osteoarthritis Neurological History: Reports: Parkinson's, Speech Problems, Vertigo Other Neuro History: 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 Psychiatric History: Reports: Anxiety - Past Surgical History Cardiovascular Surgical History: Reports: None - History Comment History Comment: Patient has chronic severe generalized pain. He is currently on Dilaudid 2 mg 3 times daily and fentanyl patch. 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 Social & Family History - Tobacco Use Smoking Status *Q: Never Smoker - Caffeine Use Caffeine Use: Reports: Coffee, Soda - Recreational Drug Use Recreational Drug Use: No - Living Situation & Occupation Living situation: Reports: Single, Alone, Extended Care Facility ([facility] Occupation: Disabled ED ROS GENERAL - Review of Systems Review Of Systems: Unable To Obtain Reason Not Obtained: Patient is unresponsive to verbal and physical stimulus. ED EXAM, SEPSIS - Physical Exam Exam: See Below Exam Limited By: Other (And is unresponsive to verbal and physical stimuli. He is very warm to palpation. Recorded temperature by nursing staff is 37.7. H eart rate is 82 with a respiratory of only 13 ie.hypopnia. Pulse oximetry reveals 80% on room air.) General Appearance: Severe Distress (Presents to the ED and moribund status and appears close to .) Eye Exam: Left Eye: PERRL (Unable to perform.), Bilateral Eye: Normal Inspection (No scleral icterus or blepharal pallor noted.) Throat/Mouth: Other (Shins mouth and tongue are very dry.) Head: Atraumatic, Normocephalic, Other (No outward signs of any head or facial trauma.) Neck: No: Carotid Bruit Respiratory/Chest: No Respiratory Distress, Other (Note respiratory rate is out of proportion to clinical findings. Due to his high fever he should be tachypneic.) Cardiovascular: No Edema, No Gallop, No Murmur, No Rub Peripheral Pulses: 2+: Carotid (L), Carotid (R), Posterior Tibial (L), Posterior Tibial (R), Dorsalis Pedis (L), Dorsalis Pedis (R) GI/Abdominal Exam: Normal Bowel Sounds, Soft, Non-Tender, No Organomegaly, Other (Slightly tympanitic to percussion throughout. This is combined with mild aerophagia.) Back: Other (Not examined.) Extremities: Normal Inspection, No Pedal Edema, Other (Patient shows increased rigidity on movement of both upper and lower extremities with no cogwheel rigidity. Appears to have spasticity in all of his limbs clinically.) Neurological: Unresponsive (Unresponsive to verbal and physical stimuli.) Psychiatric: Other Skin: Warm, Dry (Able to ascertain.), Intact, Normal Color, No Rash EKG INTERPRETATION EKG Date: 10/20/19 Time: 01:20 Rhythm: NSR Rate (Beats/Min): 72 P-Wave: Present (T wave inversion lead V1--nonspecific finding. Borderline short ID interval.) QRS: Other (Left ventricular hypertrophy pattern.) ST-T: Other (T wave flattening V4 to V6 nonspecific finding) QT: Normal (Borderline ECG) Course - Vital Signs Last Recorded V/S: Last Vital Signs Temp 36.4 C 10/22/19 02:22 Pulse 58 L 10/22/19 02:22 Resp 20 10/22/19 02:22 BP 142/90 H 10/22/19 02:22 Pulse Ox 94 L 10/22/19 02:22 - Orders/Labs/Meds Orders: Medication Orders Acetaminophen (Tylenol) 650 mg PO Q4H PRN PRN Reason: Pain (Mild 1-3)/fever Baclofen (Lioresal) 10 mg PO QID [facility] Admin: 10/21/19 21:20 Dose: Not Given Documented by: Admin: 10/21/19 16:23 Dose: 10 mg Documented by: Admin: 10/21/19 12:43 Dose: 10 mg Documented by: [id number] Admin: 10/21/19 08:53 Dose: 10 mg Documented by: Admin: 10/20/19 22:25 Dose: 10 mg Documented by: [id number] Buspirone HCl (Buspar) 15 mg PO BID [facility] Admin: 10/21/19 21:20 Dose: Not Given Documented by: Admin: 10/21/19 08:52 Dose: 15 mg Documented by: Admin: 10/20/19 22:17 Dose: 15 mg Documented by: BARBARA Carbidopa/Levodopa (Sinemet 25-100 Mg) 1 tab PO QID [facility] Admin: 10/21/19 21:20 Dose: Not Given Documented by: Admin: 10/21/19 16:23 Dose: 1 tab Documented by: Admin: 10/21/19 12:44 Dose: 1 tab Documented by: [id number] Admin: 10/21/19 08:53 Dose: 1 tab Documented by: Admin: 10/20/19 22:17 Dose: 1 tab Documented by: BARBARA Celecoxib (Celebrex) 200 mg PO DAILY [facility] Last Admin: 10/21/19 08:53 Dose: 200 mg Documented by: DEMETRI Citalopram Hydrobromide (Celexa) 40 mg PO BEDTIME [facility] Last Admin: 10/21/19 21:20 Dose: Not Given Documented by: Admin: 10/20/19 22:18 Dose: 40 mg Documented by: [id number] Cyclobenzaprine HCl (Flexeril) 5 mg PO TID [facility] Last Admin: 10/21/19 21:20 Dose: Not Given Documented by: Admin: 10/21/19 14:32 Dose: 5 mg Documented by: Admin: 10/21/19 08:51 Dose: 5 mg Documented by: Admin: 10/20/19 22:25 Dose: 5 mg Documented by: BARBARA Diclofenac Sodium (Voltaren 1% Gel) 2 gm TOP Q4H [facility] Last Admin: 10/22/19 06:07 Dose: 1 applic Documented by: Admin: 10/22/19 02:03 Dose: 1 applic Documented by: Admin: 10/21/19 21:30 Dose: Not Given Documented by: Admin: 10/21/19 18:22 Dose: Not Given Documented by: DEMETRI Fentanyl (Duragesic) 75 mcg TRDERM Q72H [facility] Last Admin: 10/22/19 01:52 Dose: 75 mcg Documented by: [id number] Gabapentin (Neurontin) 200 mg PO TID [facility] Last Admin: 10/21/19 21:20 Dose: Not Given Documented by: Admin: 10/21/19 14:32 Dose: 200 mg Documented by: Admin: 10/21/19 08:52 Dose: 200 mg Documented by: Admin: 10/20/19 22:17 Dose: 200 mg Documented by: BARBARA Hydromorphone HCl (Dilaudid) 2 mg PO Q6H PRN PRN Reason: Pain Last Admin: 10/22/19 01:58 Dose: 2 mg Documented by: Admin: 10/21/19 16:23 Dose: 2 mg Documented by: Admin: 10/21/19 09:55 Dose: 2 mg Documented by: Admin: 10/21/19 01:00 Dose: 2 mg Documented by: Admin: 10/20/19 18:08 Dose: 2 mg Documented by: [id number] Lactated Ringer's (Ringers, Lactated) 1,000 mls @ 75 mls/hr IV ASDIRECTED [facility] Last Admin: 10/21/19 18:51 Dose: 75 mls/hr Documented by: Infusion: 10/21/19 17:41 Dose: 75 mls/hr Documented by: Admin: 10/21/19 04:21 Dose: 75 mls/hr Documented by: Infusion: 10/21/19 04:21 Dose: 75 mls/hr Documented by: Admin: 10/20/19 15:33 Dose: 75 mls/hr Documented by: CARLEY Levofloxacin/Dextrose 750 mg/ (Premix) 150 mls @ 100 mls/hr IV Q24H [facility] Last Admin: 10/22/19 00:03 Dose: 100 mls/hr Documented by: Infusion: 10/21/19 00:55 Dose: 100 mls/hr Documented by: [id number] Admin: 10/20/19 23:25 Dose: 100 mls/hr Documented by: BARBARA Piperacillin Sod/Tazobactam (Sod 4.5 gm/ Sodium Chloride) 100 mls @ 25 mls/hr IV Q8H [facility] Last Admin: 10/22/19 06:08 Dose: 25 mls/hr Documented by: Infusion: 10/22/19 01:36 Dose: 25 mls/hr Documented by: Admin: 10/21/19 21:36 Dose: 25 mls/hr Documented by: Infusion: 10/21/19 18:31 Dose: 25 mls/hr Documented by: Admin: 10/21/19 14:31 Dose: 25 mls/hr Documented by: Infusion: 10/21/19 10:18 Dose: 25 mls/hr Documented by: Admin: 10/21/19 06:18 Dose: 25 mls/hr Documented by: BARBARA Vancomycin HCl 1 gm/Vancomycin HCl 250 mg/ Sodium Chloride 250 mls @ 166.667 mls/hr IV Q12H [facility] Last Admin: 10/21/19 21:34 Dose: 166.667 mls/hr Documented by: Infusion: 10/21/19 10:19 Dose: 166.667 mls/hr Documented by: Admin: 10/21/19 08:49 Dose: 166.667 mls/hr Documented by: DEMETRI Lorazepam (Ativan) 1 mg PO QID [facility] Last Admin: 10/22/19 02:18 Dose: 1 mg Documented by: Admin: 10/21/19 16:22 Dose: 1 mg Documented by: Admin: 10/21/19 12:43 Dose: 1 mg Documented by: Admin: 10/21/19 08:55 Dose: 1 mg Documented by: Admin: 10/20/19 22:23 Dose: 1 mg Documented by: BARBARA Losartan Potassium (Cozaar) 50 mg PO DAILY [facility] Last Admin: 10/21/19 08:54 Dose: 50 mg Documented by: DEMETRI Magnesium Oxide (Magnesium Oxide) 400 mg PO BID [facility] Last Admin: 10/21/19 21:20 Dose: Not Given Documented by: Admin: 10/21/19 08:55 Dose: 400 mg Documented by: Admin: 10/20/19 22:17 Dose: 400 mg Documented by: BARBARA Miscellaneous Information (Remove Patch) 1 ea TRDERM Q72H [facility] Last Admin: 10/22/19 01:53 Dose: 1 ea Documented by: BARBARA Ondansetron HCl (Zofran) 4 mg IV Q6H PRN PRN Reason: Nausea/Vomiting Ondansetron HCl (Zofran Odt) 4 mg PO Q6H PRN PRN Reason: nausea, able to take PO Polyethylene Glycol (Miralax) 17 gm PO DAILY [facility] Last Admin: 10/21/19 08:55 Dose: 17 gm Documented by: DEMETRI Senna/Docusate Sodium (Senna Plus) 1 tab PO TID PRN PRN Reason: Constipation Simvastatin (Zocor) 20 mg PO BEDTIME [facility] Last Admin: 10/21/19 21:20 Dose: Not Given Documented by: Admin: 10/20/19 22:18 Dose: 20 mg Documented by: BARBARA Terazosin HCl (Hytrin) 5 mg PO BID [facility] Last Admin: 10/21/19 21:20 Dose: Not Given Documented by: Admin: 10/21/19 08:54 Dose: 5 mg Documented by: Admin: 10/20/19 22:18 Dose: 5 mg Documented by: BARBARA Trazodone HCl (Trazodone) 100 mg PO BEDTIME [facility] Last Admin: 10/21/19 21:20 Dose: Not Given Documented by: Admin: 10/20/19 22:23 Dose: 100 mg Documented by: BARBARA Vancomycin HCl (Pharmacy To Dose - Vancomycin) 1 dose .XX ASDIRECTED PRN PRN Reason: RX TO DOSE VANCO Labs: Laboratory Tests 10/20/19 10/20/19 10/20/19 Range/Units 00:52 00:55 00:55 WBC 11.88 H (4.23-9.07) K/mm3 RBC 4.40 L (4.63-6.08) M/mm3 Hgb 12.4 L (13.7-17.5) gm/dl Hct 39.9 L (40.1-51.0) % MCV 90.7 (79.0-92.2) fl MCH 28.2 (25.7-32.2) pg MCHC 31.1 L (32.2-35.5) g/dl RDW Std Deviation 43.9 (35.1-43.9) fL Plt Count 164 (163-337) K/mm3 MPV 11.4 (9.4-12.3) fl Neut % (Auto) 84.8 H (34.0-67.9) % Lymph % (Auto) 8.7 L (21.8-53.1) % [place] % (Auto) 6.0 (5.3-12.2) % Eos % (Auto) 0.1 L (0.8-7.0) Baso % (Auto) 0.2 (0.1-1.2) % Neut # (Auto) 10.09 H (1.78-5.38) K/mm3 Lymph # (Auto) 1.03 L (1.32-3.57) K/mm3 [place] # (Auto) 0.71 (0.30-0.82) K/mm3 Eos # (Auto) 0.01 L (0.04-0.54) K/mm3 Baso # (Auto) 0.02 (0.01-0.08) K/mm3 Manual Slide Review Abnormal smear PT (9.7-11.7) SECONDS INR APTT (22-31) SECONDS Puncture Site ABG pH (7.35-7.45) ABG pCO2 (35.0-45.0) mmHg ABG pO2 (80.0-100.0) mmHg ABG HCO3 (22.0-26.0) meq/L ABG O2 Saturation (96.0-97.0) % ABG Base Excess (-2-2.0) Nicholas Test A-a Gradient mmHg O2 Delivery Device Oxygen Flow Rate FiO2 (21.00-100.00) % Sodium 140 (136-145) mEq/L Potassium 4.3 (3.5-5.1) mEq/L Chloride 105 (98-107) mEq/L Carbon Dioxide 28 (21-32) mEq/L Anion Gap 11.3 (5-15) BUN 17 (7-18) mg/dL Creatinine 0.9 (0.7-1.3) mg/dL Est Cr Clr Drug Dosing 74.03 mL/min Estimated GFR (MDRD) > 60 (>60) mL/min BUN/Creatinine Ratio 18.9 H (14-18) Glucose 143 H (80-115) mg/dL Lactic Acid (0.4-2.0) mmol/L Calcium 8.0 L (8.5-10.1) mg/dL Magnesium (1.8-2.4) mg/dl Total Bilirubin 0.9 (0.2-1.0) mg/dL AST 11 L (15-37) U/L ALT 8 L (16-63) U/L Alkaline Phosphatase 86 (46-116) U/L Troponin I < 0.017 (0.00-0.056) ng/mL C-Reactive Protein 5.1 H* (<1.0) mg/dL NT-Pro-B Natriuret Pep (0-125) pg/mL Total Protein 6.2 L (6.4-8.2) g/dl Albumin 2.9 L (3.4-5.0) g/dl Globulin 3.3 gm/dL Albumin/Globulin Ratio 0.9 L (1-2) Procalcitonin (<0.10) ng/mL Urine Color (Yellow) Urine Appearance (Clear) Urine pH (5.0-8.0) Ur Specific [place] (1.005-1.030) Urine Protein (Negative) Urine Glucose (UA) (Negative) Urine Ketones (Negative) Urine Occult Blood (Negative) Urine Nitrite (Negative) Urine Bilirubin (Negative) Urine Urobilinogen (0.2-1.0) Ur Leukocyte Esterase (Negative) Urine RBC (0-5) /hpf Urine WBC (0-5) /hpf Ur Squamous Epith Cells (0-5) /hpf Urine Bacteria (FEW) /hpf Urine Mucus (FEW) /hpf SARS Virus RNA (PCR) Negative (NEGATIVE) 10/20/19 10/20/19 10/20/19 Range/Units 00:55 00:55 00:55 WBC (4.23-9.07) K/mm3 RBC (4.63-6.08) M/mm3 Hgb (13.7-17.5) gm/dl Hct (40.1-51.0) % MCV (79.0-92.2) fl MCH (25.7-32.2) pg MCHC (32.2-35.5) g/dl RDW Std Deviation (35.1-43.9) fL Plt Count (163-337) K/mm3 MPV (9.4-12.3) fl Neut % (Auto) (34.0-67.9) % Lymph % (Auto) (21.8-53.1) % [place] % (Auto) (5.3-12.2) % Eos % (Auto) (0.8-7.0) Baso % (Auto) (0.1-1.2) % Neut # (Auto) (1.78-5.38) K/mm3 Lymph # (Auto) (1.32-3.57) K/mm3 [place] # (Auto) (0.30-0.82) K/mm3 Eos # (Auto) (0.04-0.54) K/mm3 Baso # (Auto) (0.01-0.08) K/mm3 Manual Slide Review PT 12.7 H (9.7-11.7) SECONDS INR 1.19 APTT 33 H (22-31) SECONDS Puncture Site ABG pH (7.35-7.45) ABG pCO2 (35.0-45.0) mmHg ABG pO2 (80.0-100.0) mmHg ABG HCO3 (22.0-26.0) meq/L ABG O2 Saturation (96.0-97.0) % ABG Base Excess (-2-2.0) Nicholas Test A-a Gradient mmHg O2 Delivery Device Oxygen Flow Rate FiO2 (21.00-100.00) % Sodium (136-145) mEq/L Potassium (3.5-5.1) mEq/L Chloride (98-107) mEq/L Carbon Dioxide (21-32) mEq/L Anion Gap (5-15) BUN (7-18) mg/dL Creatinine (0.7-1.3) mg/dL Est Cr Clr Drug Dosing mL/min Estimated GFR (MDRD) (>60) mL/min BUN/Creatinine Ratio (14-18) Glucose (80-115) mg/dL Lactic Acid 0.8 (0.4-2.0) mmol/L Calcium (8.5-10.1) mg/dL Magnesium 1.8 (1.8-2.4) mg/dl Total Bilirubin (0.2-1.0) mg/dL AST (15-37) U/L ALT (16-63) U/L Alkaline Phosphatase (46-116) U/L Troponin I (0.00-0.056) ng/mL C-Reactive Protein (<1.0) mg/dL NT-Pro-B Natriuret Pep (0-125) pg/mL Total Protein (6.4-8.2) g/dl Albumin (3.4-5.0) g/dl Globulin gm/dL Albumin/Globulin Ratio (1-2) Procalcitonin (<0.10) ng/mL Urine Color (Yellow) Urine Appearance (Clear) Urine pH (5.0-8.0) Ur Specific [place] (1.005-1.030) Urine Protein (Negative) Urine Glucose (UA) (Negative) Urine Ketones (Negative) Urine Occult Blood (Negative) Urine Nitrite (Negative) Urine Bilirubin (Negative) Urine Urobilinogen (0.2-1.0) Ur Leukocyte Esterase (Negative) Urine RBC (0-5) /hpf Urine WBC (0-5) /hpf Ur Squamous Epith Cells (0-5) /hpf Urine Bacteria (FEW) /hpf Urine Mucus (FEW) /hpf SARS Virus RNA (PCR) (NEGATIVE) 10/20/19 10/20/19 10/20/19 Range/Units 00:55 00:55 01:00 WBC (4.23-9.07) K/mm3 RBC (4.63-6.08) M/mm3 Hgb (13.7-17.5) gm/dl Hct (40.1-51.0) % MCV (79.0-92.2) fl MCH (25.7-32.2) pg MCHC (32.2-35.5) g/dl RDW Std Deviation (35.1-43.9) fL Plt Count (163-337) K/mm3 MPV (9.4-12.3) fl Neut % (Auto) (34.0-67.9) % Lymph % (Auto) (21.8-53.1) % [place] % (Auto) (5.3-12.2) % Eos % (Auto) (0.8-7.0) Baso % (Auto) (0.1-1.2) % Neut # (Auto) (1.78-5.38) K/mm3 Lymph # (Auto) (1.32-3.57) K/mm3 [place] # (Auto) (0.30-0.82) K/mm3 Eos # (Auto) (0.04-0.54) K/mm3 Baso # (Auto) (0.01-0.08) K/mm3 Manual Slide Review PT (9.7-11.7) SECONDS INR APTT (22-31) SECONDS Puncture Site ABG pH (7.35-7.45) ABG pCO2 (35.0-45.0) mmHg ABG pO2 (80.0-100.0) mmHg ABG HCO3 (22.0-26.0) meq/L ABG O2 Saturation (96.0-97.0) % ABG Base Excess (-2-2.0) Nicholas Test A-a Gradient mmHg O2 Delivery Device Oxygen Flow Rate FiO2 (21.00-100.00) % Sodium (136-145) mEq/L Potassium (3.5-5.1) mEq/L Chloride (98-107) mEq/L Carbon Dioxide (21-32) mEq/L Anion Gap (5-15) BUN (7-18) mg/dL Creatinine (0.7-1.3) mg/dL Est Cr Clr Drug Dosing mL/min Estimated GFR (MDRD) (>60) mL/min BUN/Creatinine Ratio (14-18) Glucose (80-115) mg/dL Lactic Acid (0.4-2.0) mmol/L Calcium (8.5-10.1) mg/dL Magnesium (1.8-2.4) mg/dl Total Bilirubin (0.2-1.0) mg/dL AST (15-37) U/L ALT (16-63) U/L Alkaline Phosphatase (46-116) U/L Troponin I (0.00-0.056) ng/mL C-Reactive Protein (<1.0) mg/dL NT-Pro-B Natriuret Pep 36 (0-125) pg/mL Total Protein (6.4-8.2) g/dl Albumin (3.4-5.0) g/dl Globulin gm/dL Albumin/Globulin Ratio (1-2) Procalcitonin 4.44 H (<0.10) ng/mL Urine Color Dark yellow (Yellow) Urine Appearance Clear (Clear) Urine pH 5.5 (5.0-8.0) Ur Specific [place] > or = 1.030 (1.005-1.030) Urine Protein Trace H (Negative) Urine Glucose (UA) Negative (Negative) Urine Ketones Trace H (Negative) Urine Occult Blood Negative (Negative) Urine Nitrite Positive H (Negative) Urine Bilirubin 1+ H (Negative) Urine Urobilinogen 0.2 (0.2-1.0) Ur Leukocyte Esterase 1+ H (Negative) Urine RBC Not seen (0-5) /hpf Urine WBC 5-10 H (0-5) /hpf Ur Squamous Epith Cells Not seen (0-5) /hpf Urine Bacteria Moderate H (FEW) /hpf Urine Mucus Few (FEW) /hpf SARS Virus RNA (PCR) (NEGATIVE) 10/20/19 Range/Units 01:35 WBC (4.23-9.07) K/mm3 RBC (4.63-6.08) M/mm3 Hgb (13.7-17.5) gm/dl Hct (40.1-51.0) % MCV (79.0-92.2) fl MCH (25.7-32.2) pg MCHC (32.2-35.5) g/dl RDW Std Deviation (35.1-43.9) fL Plt Count (163-337) K/mm3 MPV (9.4-12.3) fl Neut % (Auto) (34.0-67.9) % Lymph % (Auto) (21.8-53.1) % [place] % (Auto) (5.3-12.2) % Eos % (Auto) (0.8-7.0) Baso % (Auto) (0.1-1.2) % Neut # (Auto) (1.78-5.38) K/mm3 Lymph # (Auto) (1.32-3.57) K/mm3 [place] # (Auto) (0.30-0.82) K/mm3 Eos # (Auto) (0.04-0.54) K/mm3 Baso # (Auto) (0.01-0.08) K/mm3 Manual Slide Review PT (9.7-11.7) SECONDS INR APTT (22-31) SECONDS Puncture Site Rt radial ABG pH 7.30 L (7.35-7.45) ABG pCO2 54.6 H (35.0-45.0) mmHg ABG pO2 83.0 (80.0-100.0) mmHg ABG HCO3 26.0 (22.0-26.0) meq/L ABG O2 Saturation 94.6 L (96.0-97.0) % ABG Base Excess -0.5 (-2-2.0) Nicholas Test Positive A-a Gradient 77 mmHg O2 Delivery Device Nasal cannula Oxygen Flow Rate 3.0 FiO2 32.00 (21.00-100.00) % Sodium (136-145) mEq/L Potassium (3.5-5.1) mEq/L Chloride (98-107) mEq/L Carbon Dioxide (21-32) mEq/L Anion Gap (5-15) BUN (7-18) mg/dL Creatinine (0.7-1.3) mg/dL Est Cr Clr Drug Dosing mL/min Estimated GFR (MDRD) (>60) mL/min BUN/Creatinine Ratio (14-18) Glucose (80-115) mg/dL Lactic Acid (0.4-2.0) mmol/L Calcium (8.5-10.1) mg/dL Magnesium (1.8-2.4) mg/dl Total Bilirubin (0.2-1.0) mg/dL AST (15-37) U/L ALT (16-63) U/L Alkaline Phosphatase (46-116) U/L Troponin I (0.00-0.056) ng/mL C-Reactive Protein (<1.0) mg/dL NT-Pro-B Natriuret Pep (0-125) pg/mL Total Protein (6.4-8.2) g/dl Albumin (3.4-5.0) g/dl Globulin gm/dL Albumin/Globulin Ratio (1-2) Procalcitonin (<0.10) ng/mL Urine Color (Yellow) Urine Appearance (Clear) Urine pH (5.0-8.0) Ur Specific [place] (1.005-1.030) Urine Protein (Negative) Urine Glucose (UA) (Negative) Urine Ketones (Negative) Urine Occult Blood (Negative) Urine Nitrite (Negative) Urine Bilirubin (Negative) Urine Urobilinogen (0.2-1.0) Ur Leukocyte Esterase (Negative) Urine RBC (0-5) /hpf Urine WBC (0-5) /hpf Ur Squamous Epith Cells (0-5) /hpf Urine Bacteria (FEW) /hpf Urine Mucus (FEW) /hpf SARS Virus RNA (PCR) (NEGATIVE) Meds: Medications Generic Name Dose Route Start Last Admin Trade Name Freq PRN Reason Stop Dose Admin Acetaminophen 650 mg 10/20/19 14:20 Tylenol PO Q4H PRN Pain (Mild 1-3)/fever Baclofen 10 mg 10/20/19 21:00 10/21/19 21:20 Lioresal PO Not Given QID [facility] Buspirone HCl 15 mg 10/20/19 21:00 10/21/19 21:20 Buspar PO Not Given BID [facility] Carbidopa/Levodopa 1 tab 10/20/19 21:00 10/21/19 21:20 Sinemet 25-100 Mg PO Not Given QID [facility] Celecoxib 200 mg 10/21/19 09:00 10/21/19 08:53 Celebrex PO 200 mg DAILY JASPER Administration Citalopram Hydrobromide 40 mg 10/20/19 21:00 10/21/19 21:20 Celexa PO Not Given BEDTIME [facility] Cyclobenzaprine HCl 5 mg 10/20/19 21:00 10/21/19 21:20 Flexeril PO Not Given TID [facility] Diclofenac Sodium 2 gm 10/21/19 17:15 10/22/19 06:07 Voltaren 1% Gel TOP 1 applic Q4H JASPER Administration Fentanyl 75 mcg 10/21/19 21:00 10/22/19 01:52 Duragesic TRDERM 75 mcg Q72H JASPER Administration Gabapentin 200 mg 10/20/19 21:00 10/21/19 21:20 Neurontin PO Not Given TID [facility] Hydromorphone HCl 2 mg 10/20/19 17:23 10/22/19 01:58 Dilaudid PO 2 mg Q6H PRN Administration Pain Lactated Ringer's 1,000 mls @ 75 mls/hr 10/20/19 14:45 10/21/19 18:51 Ringers, Lactated IV 75 mls/hr ASDIRECTED JASPER Administration Levofloxacin/Dextrose 750 mg/ 150 mls @ 100 mls/hr 10/20/19 22:30 10/22/19 00:03 Premix IV 100 mls/hr Q24H JASPER Administration Piperacillin Sod/Tazobactam 100 mls @ 25 mls/hr 10/21/19 06:00 10/22/19 06:08 Sod 4.5 gm/ Sodium Chloride IV 25 mls/hr Q8H JASPER Administration Vancomycin HCl 1 gm/ 250 mls @ 166.667 mls/hr 10/21/19 09:00 10/21/19 21:34 Vancomycin HCl 250 mg/ Sodium IV 166.667 mls/hr Chloride Q12H JASPER Administration Lorazepam 1 mg 10/20/19 21:00 10/22/19 02:18 Ativan PO 1 mg QID JASPER Administration Losartan Potassium 50 mg 10/21/19 09:00 10/21/19 08:54 Cozaar PO 50 mg DAILY JASPER Administration Magnesium Oxide 400 mg 10/20/19 21:00 10/21/19 21:20 Magnesium Oxide PO Not Given BID JASPER Miscellaneous Information 1 ea 10/21/19 21:00 10/22/19 01:53 Remove Patch TRDERM 1 ea Q72H JASPER Administration Ondansetron HCl 4 mg 10/20/19 14:20 Zofran IV Q6H PRN Nausea/Vomiting Ondansetron HCl 4 mg 10/20/19 14:20 Zofran Odt PO Q6H PRN nausea, able to take PO Polyethylene Glycol 17 gm 10/21/19 09:00 10/21/19 08:55 Miralax PO 17 gm DAILY JASPER Administration Senna/Docusate Sodium 1 tab 10/20/19 17:23 Senna Plus PO TID PRN Constipation Simvastatin 20 mg 10/20/19 21:00 10/21/19 21:20 Zocor PO Not Given BEDTIME JASPER Terazosin HCl 5 mg 10/20/19 21:00 10/21/19 21:20 Hytrin PO Not Given BID JASPER Trazodone HCl 100 mg 10/20/19 21:00 10/21/19 21:20 Trazodone PO Not Given BEDTIME JASPER Vancomycin HCl 1 dose 10/20/19 21:00 Pharmacy To Dose - Vancomycin .XX ASDIRECTED PRN RX TO DOSE VANCO Discontinued Medications Generic Name Dose Route Start Last Admin Trade Name Freq PRN Reason Stop Dose Admin Baclofen 10 mg 10/20/19 10:25 10/20/19 10:38 Lioresal PO 10/20/19 10:26 10 mg ONETIME ONE Administration Baclofen 10 mg 10/20/19 18:15 10/20/19 18:31 Lioresal PO 10/20/19 18:16 10 mg ONETIME ONE Administration Carbidopa/Levodopa 1 tab 10/20/19 10:25 10/20/19 10:38 Sinemet 25-100 Mg PO 10/20/19 10:26 1 tab ONETIME ONE Administration Carbidopa/Levodopa 1 tab 10/20/19 18:15 10/20/19 18:30 Sinemet 25-100 Mg PO 10/20/19 18:16 1 tab ONETIME ONE Administration Diclofenac Sodium 0 gm 10/20/19 21:00 10/21/19 16:25 Voltaren 1% Gel TOP 1 applic QID JASPER Administration Gabapentin 200 mg 10/20/19 10:25 10/20/19 10:38 Neurontin PO 10/20/19 10:26 200 mg ONETIME ONE Administration Hydromorphone HCl 1 mg 10/20/19 10:27 10/20/19 10:37 Dilaudid PO 10/20/19 10:28 1 mg ONETIME ONE Administration Dextrose/Sodium Chloride 1,000 mls @ 999 mls/hr 10/20/19 00:45 10/20/19 00:55 Dextrose 5%-Normal Saline IV 999 mls/hr ASDIRECTED JASPER Administration Ceftriaxone Sodium 2 gm/ 100 mls @ 200 mls/hr 10/20/19 02:34 10/20/19 02:47 Sodium Chloride IV 10/20/19 03:03 200 mls/hr ONETIME ONE Administration Sodium Chloride 1,000 mls @ 999 mls/hr 10/20/19 02:45 10/20/19 02:47 Normal Saline IV 999 mls/hr ASDIRECTED JASPER Administration Sodium Chloride 1,000 mls @ 500 mls/hr 10/20/19 04:45 10/20/19 04:44 Normal Saline IV 500 mls/hr ASDIRECTED JASPER Administration Azithromycin 500 mg/ Sodium 250 mls @ 250 mls/hr 10/20/19 06:15 10/20/19 06:28 Chloride IV 10/20/19 07:14 250 mls/hr ONETIME ONE Administration Piperacillin Sod/Tazobactam 100 mls @ 200 mls/hr 10/20/19 20:57 10/20/19 22:43 Sod 4.5 gm/ Sodium Chloride IV 10/20/19 21:26 200 mls/hr ONETIME ONE Administration Vancomycin HCl 1.25 gm/ Sodium 250 mls @ 250 mls/hr 10/20/19 21:15 10/20/19 22:32 Chloride IV 10/20/19 22:14 250 mls/hr ONETIME ONE Administration Piperacillin Sod/Tazobactam 100 mls @ 25 mls/hr 10/21/19 03:00 10/21/19 06:34 Sod 4.5 gm/ Sodium Chloride IV Not Given Q8H JASPER Vancomycin HCl 1 gm/ Sodium 250 mls @ 250 mls/hr 10/21/19 09:00 Chloride IV Q24H JASPER Lorazepam 1 mg 10/20/19 10:27 10/20/19 10:37 Ativan PO 10/20/19 10:28 1 mg ONETIME ONE Administration Lorazepam 1 mg 10/20/19 18:15 10/20/19 18:28 Ativan PO 10/20/19 18:16 1 mg ONETIME ONE Administration - Radiology Interpretation Free Text/Narrative:: 64-year-old male currently residing at [facility] presents to the ED for evaluation of high fever that occurred sometime within the last 12 hours. He presents to the ED in moribund condition unresponsive to verbal and physical stimuli. Patient rules in for sepsis protocol as he is hypotensive with BP 82/50. He is hypoxic on room air at 80%. His CODE STATUS is DNR/DNI. 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 COVID testing done at the [facility] last week proved to be negative. Plan clinically you will have COVID-19 ruled out. He will have a chest x-ray and urine by catheterization and septic work-up performed. IV will be D5 normal saline at open. No aggressive treatment plan such as vaopressors will be considered. His sister whom the nurses spoke with and is the power of commercial attorney indicates that she would her to keep him as comfortable as possible and will allow antibiotic treatment if needed. Started on nasal cannula oxygen at 4 L/min. - Re-Assessments/Exams Free Text/Narrative Re-Assessment/Exam: 10/20/19 01:05 Chest x-ray done portably suggests bilateral pneumonia --right lower lobe adjacent to the heart border and left lower lobe.He is rotated si gnificantly to the Lt . Marked cardiomegaly appreciated. Left side of heart abuts the chest wall. Concern is for possible COVID 19 illness. 10/20/2019: 02:10 : White count is mildly elevated at 11.88 with left shift of 85% neutrophils. Hemoglobin is 12.4 with hematocrit of 39.9. Platelet count 164,000. The slide shows mild toxic granulation polymorphonuclear feels no bands appreciated. PT is 12.7 with an INR elevated at 1.19. PTT is 33. ABGs revealed a pH of 7.30 PCO2 of 55 and a CO2 retainer. PO2 of 83.0. Sats are 94.6% on nasal cannula at 3 L/min. Chemistry feels a sodium of 140 and a potassium of 4.3. Chloride is 105 with a bicarb of 28. Anion gap is 11.3. BUN is 17 with a creatinine of 0.9. Estimated GFR is greater than 60. BUN/creatinine ratio is mildly elevated at 18.9. Glucose is 143. Lactic acid 0.8. Calcium is 8.0 slightly low. Magnesium is 1.8. Liver function normal. Troponin I was less than 0.017. C-reactive protein elevated at 5.1. BNP is 36 with a total protein of 6.2. Albumin fraction is 2.9. The urinalysis shows trace of protein and trace of ketones positive nitrates with 1+ bilirubin. There is also 1+ leukocyte Estrace. Urinalysis shows 5-10 WBCs per per field with moderate bacteria. COVID-19 screen is negative. Urine will be sent for culture. We will give Rocephin 2 g IV. Note blood pressure remains low at 79/48 with a heart rate of 65. Remains unresponsive. We have contacted his sister who is power of commercial attorney and she cofirms that he is DNR/DNI status. She wishes no heroic measures be carried out. He will therefore simply be treated with IV fluids and IV antibiotics. Prognosis is very poor. He will remain in the ED overnight as the [facility] surgery floor is not taking any patients at this time. 10/20/19 04:13 Nurses report that he does feel warm to palpation but is afebrile. He is nearly completed second liter of IV fluids with BP up to 92/46. Heart rate remained 60 and sinus. 02 sats remain low at 89% on 4L/min. Will increase 02 to 5L/min. Repeat Tylenol per rectum if fever is identified.Has completed 2 liters of crystalloid without significant improvement in his BP. Will continue N/S at 500mls per hour. Latest blood pressure is 88/56. 10/20/19 06:15 I have spoken with Dr White--hospitalist and she asked if the patient could also be given Zithromax 500 mg IV for suspect bilateral pneumonia. He continues to fail. BP is 81/56. This is in spite of 2-1/2 L of crystalloids. Diagnosis remains dire. 10/20/19 06:55 she remains in the ED at this time due to lack of availability of a bed on the med surgery floor. Tentatively he will be admitted when a bed opens up this morning. [facility] in [place] is on diversion and [facility] seen [facility] is not excepting any ambulance transfers. BP is 86/49 heart rate is 58. O2 sats 93% on 5 L by nasal cannula. Case discussed with Dr. Bedoya as it is change of shift. 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 Pneumonia Qualifiers: Pneumonia type: due to unspecified organism Laterality: bilateral Lung location: lower lobe of lung Qualified Code(s): J18.9 - Pneumonia, unspecified organism Hypotension Qualifiers: Hypotension type: unspecified hypotension type Qualified Code(s): I95.9 - Hypotension, unspecified Urinary tract infection Qualifiers: Urinary tract infection type: site unspecified Hematuria presence: without hematuria Qualified Code(s): N39.0 - Urinary tract infection, site not specified - Discharge Information *PRESCRIPTION DRUG MONITORING PROGRAM REVIEWED*: Not Applicable *COPY OF PRESCRIPTION DRUG MONITORING REPORT IN PATIENT DINESH: Not Applicable Sepsis Event Note (ED) - Evaluation Sepsis Screening Result: No Definite Risk
[2019-10-20] MEDS ORDERED: cefTRIAXone 2 GM in Sodium Chloride 0.9% 100 ML IV ONE (02:34)
[2019-10-20] MEDS ORDERED: Sodium Chloride 0.9% 1,000 ML IV SCH ×2 (02:45→04:45)
[2019-10-20] MEDS ORDERED: Azithromycin 500 MG in Sodium Chloride 0.9% 250 ML IV ONE (06:15)
[2019-10-20] MEDS ORDERED: Gabapentin 100 MG Cap PO ONE (10:25)
[2019-10-20] MEDS ORDERED: Carbidopa/Levodopa 25-100 MG Tab PO ONE ×2 (10:25→18:15)
[2019-10-20] MEDS ORDERED: Baclofen 10 MG Tab PO ONE ×2 (10:25→18:15)
[2019-10-20] MEDS ORDERED: HYDROmorphone 2 MG Tab PO ONE (10:27)
[2019-10-20] MEDS ORDERED: LORazepam 1 MG Tab PO ONE ×2 (10:27→18:15)
[2019-10-20] MEDS ORDERED: Ondansetron 4 MG/2 ML SDV IV PRN (14:20)
[2019-10-20] MEDS ORDERED: Ondansetron 4 MG Tab.DIS PO PRN (14:20)
[2019-10-20] MEDS ORDERED: Acetaminophen 325 MG Tab PO PRN (14:20)
--- NOTE | 2019-10-20 15:30 | PCM.HP.2 ---
H&P History of Present Illness - General Date of Service: 10/20/19 Admit Problem/Dx: Admission Diagnosis/Problem Admission Diagnosis/Problem Pneumonia - History of Present Illness Initial Comments - Free Text/Narative: 64-year-old male from [facility] presents to the ED per [facility] with reported new onset of high fever and lethargy. Temperature reportedly greater than 101.6 at the [facility]. - Related Data Allergies/Adverse Reactions: Allergies Allergy/AdvReac Type Severity Reaction Status Date / Time No Known Allergies Allergy Verified 09/17/19 05:51 Home Medications: Home Meds Acetaminophen [Tylenol Arthritis Pain] 650 mg PO Q6H PRN 09/16/19 [History] Celecoxib [CeleBREX] 200 mg PO DAILY 09/16/19 [History] Diclofenac Sodium [Voltaren 1% Gel] 2 gm TOP QID 09/16/19 [History] Escitalopram Oxalate [Lexapro] 20 mg PO BEDTIME 09/16/19 [History] Losartan [Cozaar] 50 mg PO DAILY 09/16/19 [History] Magnesium Oxide [Magnesium] 400 mg PO BID 09/16/19 [History] Simvastatin 20 mg PO BEDTIME 09/16/19 [History] Baclofen 10 mg PO QID 7 Days #28 10/01/19 [Rx] Carbidopa/Levodopa [Carbidopa-Levodopa 25-100 Tab] 1 each PO QID 7 Days #28 10/01/19 [Rx] Cyclobenzaprine [Flexeril] 5 mg PO TID 7 Days #21 10/01/19 [Rx] Gabapentin [Neurontin] 200 mg PO TID 7 Days #21 10/01/19 [Rx] HYDROmorphone [Dilaudid] 2 mg PO Q6H PRN 7 Days #28 10/01/19 [Rx] Terazosin [Hytrin] 5 mg PO BID cap 10/01/19 [Rx] busPIRone [Buspar] 15 mg PO BID 7 Days #14 tablet 10/01/19 [Rx] fentaNYL [Duragesic] 75 mcg TD Q72H 6 Days #2 patch 10/01/19 [Rx] polyethylene glycoL 3350 [MiraLAX] 17 gm PO DAILY packet 10/01/19 [Rx] traZODone HCl [Trazodone HCl] 100 mg PO BEDTIME 7 Days #7 10/01/19 [Rx] LORazepam [Ativan] 1 mg PO QID 10/20/19 [History] Sennosides/Docusate Sodium [Senna Plus Tablet] 1 each PO TID PRN 10/20/19 [History] Past Medical History HEENT History: Reports: Impaired Vision Other HEENT History: Wears glasses Cardiovascular History: Reports: High Cholesterol, Hypertension Respiratory History: Reports: Intubation, Previous Gastrointestinal History: Reports: GERD, Hiatal Hernia Genitourinary History: Reports: BPH, Retention, Urinary Musculoskeletal History: Reports: Arthritis, Neck Pain, Chronic, Osteoarthritis Neurological History: Reports: Parkinson's, Speech Problems, Vertigo Other Neuro History: 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 Psychiatric History: Reports: Anxiety - Past Surgical History Cardiovascular Surgical History: Reports: None - History Comment History Comment: Patient has chronic severe generalized pain. He is currently on Dilaudid 2 mg 3 times daily and fentanyl patch. 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 Social & Family History - Tobacco Use Smoking Status *Q: Never Smoker - Caffeine Use Caffeine Use: Reports: Coffee, Soda - Recreational Drug Use Recreational Drug Use: No - Living Situation & Occupation Living situation: Reports: Single, Alone, Extended Care Facility ([facility] Occupation: Disabled H&P Review of Systems - Review of Systems: Review Of Systems: See Below General: Reports: Malaise, Weakness, Fatigue. Denies: Fever, Chills, Night Sweats, Diaphoresis, Decreased Appetite HEENT: Denies: Post Nasal Drip, Sinus Congestion, Sore Throat, Vertigo, Visual Changes Pulmonary: Reports: Pleuritic Chest Pain, Cough, Sputum. Denies: Shortness of Breath, Wheezing, Hemoptysis Cardiovascular: Denies: Chest Pain, Palpitations, Dyspnea on Exertion, Orthopnea, PND, Edema, Lightheadedness, Syncope Gastrointestinal: Reports: Anorexia, Decreased Appetite. Denies: Abdominal Pain, Constipation, Diarrhea, Difficulty Swallowing, Distension, Flatus, Nausea, Vomiting Genitourinary: Denies: Dysuria, Frequency, Burning, Pain, Urgency, Incontinence Musculoskeletal: Denies: Joint Pain, Joint Swelling, Muscle Pain, Muscle Stiffness Skin: Denies: Cyanosis, Jaundice, Mottled, Erythema, Wound Psychiatric: Denies: Depression, Mood Lability, Anxiety, Agitation Neurological: Reports: Confusion. Denies: Dizziness, Headache, Numbness Exam - Exam Exam: See Below - Vital Signs Vital Signs: Last Vital Signs Temp 99.9 F 10/20/19 00:29 Pulse 82 10/20/19 00:29 Resp 13 10/20/19 00:29 BP 86/52 L 10/20/19 00:29 Pulse Ox 80 L 10/20/19 00:29 Weight: 68.039 kg - Exam General: Alert, Oriented, Cooperative, Mild Distress HEENT: Conjunctiva Clear, EACs Clear, Mucosa Moist & [place], Pupils Reactive Neck: Trachea Midline, +2 Carotid Pulse wo Bruit. No: Lymphadenopathy Lungs: Decreased Breath Sounds, Crackles, Rales, Rhonchi. No: Rub, Stridor, Wheezing Cardiovascular: Regular Rate, Regular Rhythm. No: Systolic Murmur, Diastolic Murmur, Rubs, Gallop/S3, Gallop/S4 GI/Abdominal Exam: Normal Bowel Sounds, Soft, Non-Tender. No: Distended, Guarding, Rigid, Rebound Extremities: Normal Inspection, No Pedal Edema, Normal Capillary Refill Peripheral Pulses: 2+: Radial (L), Radial (R) Skin: Dry, Intact, Cool Neuro Extensive - Mental Status: Alert - Patient Data Result Diagrams: 10/20/19 00:55 10/20/19 00:55 Sepsis Event Note - Evaluation Sepsis Screening Result: No Definite Risk - Problem List (1) Leukocytosis SNOMED Code(s): 214705214, 968202855 ICD Code: D72.829 - ELEVATED WHITE BLOOD CELL COUNT, UNSPECIFIED Status: Acute Current Visit: Yes (2) Acute respiratory acidosis SNOMED Code(s): 35580020 ICD Code: E87.2 - ACIDOSIS Status: Acute Current Visit: Yes (3) Fever SNOMED Code(s): 290334400 ICD Code: R50.9 - FEVER, UNSPECIFIED Status: Acute Current Visit: Yes (4) Hypoalbuminemia SNOMED Code(s): 669223336 ICD Code: E88.09 - OTH DISORDERS OF PLASMA-PROTEIN METABOLISM, NEC Status: Acute Current Visit: Yes (5) Hypotension SNOMED Code(s): 62984028 ICD Code: I95.9 - HYPOTENSION, UNSPECIFIED Status: Acute Current Visit: Yes Qualifiers: Hypotension type: unspecified hypotension type Qualified Code(s): I95.9 - Hypotension, unspecified (6) Pneumonia SNOMED Code(s): 593560650 ICD Code: J18.9 - PNEUMONIA, UNSPECIFIED ORGANISM Status: Acute Current Visit: Yes Qualifiers: Pneumonia type: due to unspecified organism Laterality: bilateral Lung location: lower lobe of lung Qualified Code(s): J18.9 - Pneumonia, unspecified organism (7) Progressive supranuclear ophthalmoplegia SNOMED Code(s): 78833211 ICD Code: G23.1 - PROGRESSIVE SUPRANUCLEAR OPHTHALMOPLEGIA Status: Acute Current Visit: Yes (8) Urinary tract infection SNOMED Code(s): 70786905 ICD Code: N39.0 - URINARY TRACT INFECTION, SITE NOT SPECIFIED Status: Acute Current Visit: Yes Qualifiers: Urinary tract infection type: site unspecified Hematuria presence: without hematuria Qualified Code(s): N39.0 - Urinary tract infection, site not specified (9) Fall as cause of accidental injury at home as place of occurrence SNOMED Code(s): 39914236 ICD Code: W19.XXXA - UNSPECIFIED FALL, INITIAL ENCOUNTER; Y92.009 - UNSP PLACE IN UNSP NON-INSTITUT (PRIVATE) RESIDENCE PLACE Status: Acute Current Visit: No Qualifiers: Encounter type: initial encounter Qualified Code(s): W19.XXXA - Unspecified fall, initial encounter; Y92.009 - Unspecified place in unspecified non- institutional (private) residence as the place of occurrence of the external cause (10) Ribs, multiple fractures SNOMED Code(s): 5577733 ICD Code: S22.49XA - MULTIPLE FRACTURES OF RIBS, UNSP SIDE, INIT FOR CLOS FX Status: Acute Current Visit: No Qualifiers: Encounter type: initial encounter Fracture type: closed Laterality: left Qualified Code(s): S22.42XA - Multiple fractures of ribs, left side, initial encounter for closed fracture (11) Hypertension SNOMED Code(s): 73897530 ICD Code: I10 - ESSENTIAL (PRIMARY) HYPERTENSION Status: Acute Current Visit: Yes (12) Dyslipidemia SNOMED Code(s): 147444506 ICD Code: E78.5 - HYPERLIPIDEMIA, UNSPECIFIED Status: Acute Current Visit: Yes (13) Benign prostate hyperplasia SNOMED Code(s): 684032085 ICD Code: N40.0 - BENIGN PROSTATIC HYPERPLASIA WITHOUT LOWER URINRY TRACT SYMP Status: Acute Current Visit: Yes (14) GERD (gastroesophageal reflux disease) SNOMED Code(s): 634288773 ICD Code: K21.9 - GASTRO-ESOPHAGEAL REFLUX DISEASE WITHOUT ESOPHAGITIS Status: Acute Current Visit: Yes (15) Chronic neck pain SNOMED Code(s): 3629278682926 ICD Code: M54.2 - CERVICALGIA; G89.29 - OTHER CHRONIC PAIN Status: Acute Current Visit: Yes (16) Anxiety SNOMED Code(s): 40697350 ICD Code: F41.9 - ANXIETY DISORDER, UNSPECIFIED Status: Acute Current Visit: Yes Problem List Initiated/Reviewed/Updated: Yes Assessment/Plan Comment:: ASSESSMENT - Sent from [facility] for fever and cough - Unresponsive to verbal and physical stimuli in ER - VS: 86/52, 82x;, Temp 99.9, Pulse ox 80% on RA - Tested last Friday at [facility] for COVID--> negative - Pulse ox increased to 90% on NRB mask - Lab results - WBC 11.88, Hb 12.4, Hct 39.9, Plt 164 - Chemistry: Na 140, K 4.3, Cl 105, CO2 28, BUN 17, Cr 0.8, GFR > 60 - LFTs: T bili 0.9, AP 86, AST 11, ALT 8, Tprot 6.2, albumin 2.9 - ABGs 7.3/54.6/83/26/94.6 on 32% FiO2 PLAN Pneumonia Acute respiratory acidosis Urinary tract infection Fever and leukocytosis Hypotension in the setting of hypertension diagnosis - Start Azithromycin and Rocephin - Procalcitonin every 48 hours - Trend temperature - RT assess and treat - Tescastro Perles - Incentive spirometry - Hold home Losartan Urinary tract infection - Continue Rocephin - Follow up on culture from admission Progressive supranuclear ophthalmoplegia Muscle contractures Chronic neck pain - Continue Baclofen, Fentanyl, Cyclobenzaprine - Continue Carbidopa/Levodopa - Continue Gabapentin Fall as cause of accidental injury at home as place of occurrence Ribs, multiple fractures - Incentive spirometry - Pain control Benign prostate hyperplasia - Morris catheter care Depression Anxiety - Continue Escitalopram, Lorazepam and Trazodone Hypoalbuminemia - Dietary consult and follow up PROPHYLAXIS DVT- compression stockings GI- not indicated CODE STATUS: DNR/DNI DISPOSITION: Patient will be admitted for IV antibiotics, monitorization and respiratory therapy SOCIAL: Resident of [facility] - Mortality Measure Prognosis:: Poor
[2019-10-20] MEDS: Lactated Ringers 1,000 ML IV SCH (15:33)
[2019-10-20] MEDS: HYDROmorphone 2 MG Tab PO PRN (18:08)
[2019-10-20] MEDS ORDERED: Piperacillin/Tazobactam 4.5 GM in Sodium Chloride 0.9% 100 ML IV ONE (20:57)
[2019-10-20] MEDS: Carbidopa/Levodopa 25-100 MG Tab PO SCH (22:17)
[2019-10-20] MEDS: Magnesium Oxide 400 MG Tab PO SCH (22:17)
[2019-10-20] MEDS: busPIRone 15 MG Tab PO SCH (22:17)
[2019-10-20] MEDS: Gabapentin 100 MG Cap PO SCH (22:17)
[2019-10-20] MEDS: Citalopram 20 MG Tab PO SCH (22:18)
[2019-10-20] MEDS: Simvastatin 20 MG Tab PO SCH (22:18)
[2019-10-20] MEDS: Terazosin 5 MG Cap PO SCH (22:18)
[2019-10-20] MEDS: traZODone 50 MG Tab PO SCH (22:23)
[2019-10-20] MEDS: LORazepam 1 MG Tab PO SCH (22:23)
[2019-10-20] MEDS: Cyclobenzaprine 10 MG Tab PO SCH (22:25)
[2019-10-20] MEDS: Baclofen 10 MG Tab PO SCH (22:25)
[2019-10-20] MEDS: Levofloxacin/Dextrose 5%-Water 750 MG in Premix Bag 1 BAG IV SCH (23:25)
[2019-10-20] MEDS: Diclofenac Sodium 1% Gel 100 GM Tube TOP SCH (23:47)
[2019-10-21] MEDS: HYDROmorphone 2 MG Tab PO PRN ×3 (01:00→16:23)
[2019-10-21] MEDS ORDERED: Piperacillin/Tazobactam 4.5 GM in Sodium Chloride 0.9% 100 ML IV SCH (03:00)
[2019-10-21] MEDS: Lactated Ringers 1,000 ML IV SCH ×2 (04:21→18:51)
[2019-10-21] MEDS: Piperacillin/Tazobactam 4.5 GM in Sodium Chloride 0.9% 100 ML IV SCH ×3 (06:18→21:36)
[2019-10-21] MEDS: Vancomycin 1 GM, Vancomycin 250 MG in Sodium Chloride 0.9% 250 ML IV SCH ×2 (08:49→21:34)
[2019-10-21] MEDS: Cyclobenzaprine 10 MG Tab PO SCH ×3 (08:51→21:20)
[2019-10-21] MEDS: busPIRone 15 MG Tab PO SCH ×2 (08:52→21:20)
[2019-10-21] MEDS: Gabapentin 100 MG Cap PO SCH ×3 (08:52→21:20)
[2019-10-21] MEDS: Carbidopa/Levodopa 25-100 MG Tab PO SCH ×4 (08:53→21:20)
[2019-10-21] MEDS: Baclofen 10 MG Tab PO SCH ×4 (08:53→21:20)
[2019-10-21] MEDS: Celecoxib 100 MG Cap PO SCH (08:53)
[2019-10-21] MEDS: Losartan 100 MG Tab PO SCH (08:54)
[2019-10-21] MEDS: Terazosin 5 MG Cap PO SCH ×2 (08:54→21:20)
[2019-10-21] MEDS: Magnesium Oxide 400 MG Tab PO SCH ×2 (08:55→21:20)
[2019-10-21] MEDS: LORazepam 1 MG Tab PO SCH ×4 (08:55→21:20)
[2019-10-21] MEDS: Polyethylene Glycol 3350 Powder 17 GM Packet PO SCH (08:55)
--- NOTE | 2019-10-21 13:35 | CR ---
Chest: Portable view of the chest was obtained. Comparison: Prior chest x-ray of 09/24/19. Increased density is seen within the left inferior chest. Questionable pleural effusion is also noted on the left side. Left upper and right lung are clear. Heart is felt to be slightly enlarged. Bony structures shows degenerative change within the spine with minimal scoliosis. Old healed fracture is noted within the distal right clavicle. Fractures are noted within the left ribs which appear to be subacute in age and seen on prior study. Impression: 1. Parenchymal density with the left base as well as questionable small left-sided pleural effusion. Parenchymal density may represent pneumonia. 2. Pleural effusion suggested within the left base may be acute or chronic and likely from subacute rib fractures. 2. Other findings as noted above which are nonacute. Diagnostic code #3 This report was dictated in MDT
[2019-10-21] MEDS: Diclofenac Sodium 1% Gel 100 GM Tube TOP SCH ×5 (14:25→21:30)
--- NOTE | 2019-10-21 16:55 | PCM.PN ---
- General Info Date of Service: 10/21/19 Subjective Update: Feeling better Cough has resolved Breathing has been OK throughout the day Still having pleuritic pain on his left chest - Patient Data Vitals - Most Recent: Last Vital Signs Temp 98.1 F 10/21/19 15:46 Pulse 61 10/21/19 15:46 Resp 18 10/21/19 15:46 BP 123/63 10/21/19 15:46 Pulse Ox 95 10/21/19 15:46 Weight - Most Recent: 79.878 kg - Exam General: Alert, Oriented, Cooperative, No Acute Distress HEENT: Pupils Equal, Pupils Reactive, Mucous Membr. Moist/[place] Neck: No: Lymphadenopathy Lungs: Decreased Breath Sounds, Rales, Rhonchi (significantly improved). No: Crackles, Rub, Stridor, Wheezing Cardiovascular: Regular Rate, Regular Rhythm. No: Murmurs, Gallops, Rubs GI/Abdominal Exam: Normal Bowel Sounds, Soft, Non-Tender. No: Distended, Guarding, Rigid, Rebound Extremities: Limited Range of Motion (contractured Left arm) Peripheral Pulses: 2+: Radial (L), Radial (R) Sepsis Event Note - Evaluation Sepsis Screening Result: No Definite Risk - Problem List & Annotations (1) Healthcare-associated pneumonia SNOMED Code(s): 485896370, 620868440 Code(s): J18.9 - PNEUMONIA, UNSPECIFIED ORGANISM Status: Acute Current Visit: Yes (2) Detection of methicillin resistant Staphylococcus aureus (MRSA) DNA SNOMED Code(s): 917884159 Code(s): R89.9 - UNSP ABNORMAL FINDING IN SPECIMENS FROM OT ORG/TISS Status: Acute Current Visit: Yes (3) Leukocytosis SNOMED Code(s): 461631394, 387372884 Code(s): D72.829 - ELEVATED WHITE BLOOD CELL COUNT, UNSPECIFIED Status: Acute Current Visit: Yes (4) Acute respiratory acidosis SNOMED Code(s): 11572881 Code(s): E87.2 - ACIDOSIS Status: Acute Current Visit: Yes (5) Fever SNOMED Code(s): 361177797 Code(s): R50.9 - FEVER, UNSPECIFIED Status: Acute Current Visit: Yes (6) Hypoalbuminemia SNOMED Code(s): 905695932 Code(s): E88.09 - OTH DISORDERS OF PLASMA-PROTEIN METABOLISM, NEC Status: Acute Current Visit: Yes (7) Hypotension SNOMED Code(s): 69048421 Code(s): I95.9 - HYPOTENSION, UNSPECIFIED Status: Acute Current Visit: Yes Qualifiers: Hypotension type: unspecified hypotension type Qualified Code(s): I95.9 - Hypotension, unspecified (8) Pneumonia SNOMED Code(s): 706561583 Code(s): J18.9 - PNEUMONIA, UNSPECIFIED ORGANISM Status: Acute Current Visit: Yes Qualifiers: Pneumonia type: due to unspecified organism Laterality: bilateral Lung location: lower lobe of lung Qualified Code(s): J18.9 - Pneumonia, unspecified organism (9) Progressive supranuclear ophthalmoplegia SNOMED Code(s): 86649289 Code(s): G23.1 - PROGRESSIVE SUPRANUCLEAR OPHTHALMOPLEGIA Status: Acute Current Visit: Yes (10) Urinary tract infection SNOMED Code(s): 26405371 Code(s): N39.0 - URINARY TRACT INFECTION, SITE NOT SPECIFIED Status: Acute Current Visit: Yes Qualifiers: Urinary tract infection type: site unspecified Hematuria presence: without hematuria Qualified Code(s): N39.0 - Urinary tract infection, site not specified (11) Fall as cause of accidental injury at home as place of occurrence SNOMED Code(s): 98807336 Code(s): W19.XXXA - UNSPECIFIED FALL, INITIAL ENCOUNTER; Y92.009 - UNSP PLACE IN UNSP NON-INSTITUT (PRIVATE) RESIDENCE PLACE Status: Acute Current Visit: No Qualifiers: Encounter type: initial encounter Qualified Code(s): W19.XXXA - Unspecified fall, initial encounter; Y92.009 - Unspecified place in unspecified non- institutional (private) residence as the place of occurrence of the external cause (12) Ribs, multiple fractures SNOMED Code(s): 0490113 Code(s): S22.49XA - MULTIPLE FRACTURES OF RIBS, UNSP SIDE, INIT FOR CLOS FX Status: Acute Current Visit: No Qualifiers: Encounter type: initial encounter Fracture type: closed Laterality: left Qualified Code(s): S22.42XA - Multiple fractures of ribs, left side, initial encounter for closed fracture (13) Hypertension SNOMED Code(s): 21838898 Code(s): I10 - ESSENTIAL (PRIMARY) HYPERTENSION Status: Acute Current Visit: Yes (14) Dyslipidemia SNOMED Code(s): 114265314 Code(s): E78.5 - HYPERLIPIDEMIA, UNSPECIFIED Status: Acute Current Visit: Yes (15) Benign prostate hyperplasia SNOMED Code(s): 570197867 Code(s): N40.0 - BENIGN PROSTATIC HYPERPLASIA WITHOUT LOWER URINRY TRACT SYMP Status: Acute Current Visit: Yes (16) GERD (gastroesophageal reflux disease) SNOMED Code(s): 957826652 Code(s): K21.9 - GASTRO-ESOPHAGEAL REFLUX DISEASE WITHOUT ESOPHAGITIS Status: Acute Current Visit: Yes (17) Chronic neck pain SNOMED Code(s): 3130915602668 Code(s): M54.2 - CERVICALGIA; G89.29 - OTHER CHRONIC PAIN Status: Acute Current Visit: Yes (18) Anxiety SNOMED Code(s): 65033364 Code(s): F41.9 - ANXIETY DISORDER, UNSPECIFIED Status: Acute Current Visit: Yes (19) Thrombocytopenia SNOMED Code(s): 103245914 Code(s): D69.6 - THROMBOCYTOPENIA, UNSPECIFIED Status: Acute Current Visit: Yes (20) Wheelchair bound SNOMED Code(s): 354344071, 530873007 Code(s): Z99.3 - DEPENDENCE ON WHEELCHAIR Status: Acute Current Visit: Yes - Problem List Review Problem List Initiated/Reviewed/Updated: Yes - Assessment Assessment:: 10/20/19 - Sent from care home for fever and cough - Unresponsive to verbal and physical stimuli in ER - VS: 86/52, 82x;, Temp 99.9, Pulse ox 80% on RA - Tested last Friday at [facility] for COVID--> negative - Pulse ox increased to 90% on NRB mask - Lab results - WBC 11.88, Hb 12.4, Hct 39.9, Plt 164 - Chemistry: Na 140, K 4.3, Cl 105, CO2 28, BUN 17, Cr 0.8, GFR > 60 - LFTs: T bili 0.9, AP 86, AST 11, ALT 8, Tprot 6.2, albumin 2.9 - ABGs 7.3/54.6/83/26/94.6 on 32% FiO2 PLAN - Start Azithromycin and Rocephin - Procalcitonin every 48 hours - Trend temperature - RT assess and treat - Tessalon Perles - Incentive spirometry - Hold home Losartan - Follow up on cultures from admission - Continue Baclofen, Fentanyl, Cyclobenzaprine - Continue Carbidopa/Levodopa - Continue Gabapentin - Incentive spirometry - Pain control - Continue Escitalopram, Lorazepam and Trazodone - Dietary consult and follow up Patient will be admitted for IV antibiotics, monitorization and respiratory therapy MRSA PCR reported positive--> started on Vancomycin, levofloxacin and Zosyn to cover HAP 10/21/19 - Tapered off O2 supplementation at 8:30AM - Eating 100% of regular diet - Having speech, PT and OT at [facility] - Still having pain on left chest where he fractured his ribs VS trend - BP 109-143/63-73 - Tmax 99.9 at midnight - HR 75-82 - SatO2 >80% (one time) after that >93% Intake and Output - UO 2,575 - 24h balance: +161 New lab results - WBC down from 11.88 to 5.95 - Hb down from 12.4 to 11.3 - Plt down from 164 to 135 - Magnesium stable at 1.8 - K down from 4.3 to 3.9 - Blood cultures negative x 1 day - Plan Plan:: Healthcare Associated Pneumonia Acute respiratory acidosis Urinary tract infection Fever and leukocytosis - Day 1 Levaquin, Vancomycin and Zosyn - Procalcitonin every 48 hours - Trend temperature - RT assess and treat - Tessalon Perles - Incentive spirometry - Hold home Losartan - Induce sputum today Urinary tract infection - Continue Zosyn - Follow up on culture from admission Hypertension - Hold home Losartan for now - Possibly restart tomorrow Progressive supranuclear ophthalmoplegia Muscle contractures Chronic neck pain Wheelchair bound - Continue Baclofen, Fentanyl, Cyclobenzaprine - Continue Carbidopa/Levodopa - Continue Gabapentin Fall as cause of accidental injury at home as place of occurrence Ribs, multiple fractures - Incentive spirometry - Pain control - Start diclofenac topical every 4 hours Benign prostate hyperplasia - Morris catheter care Depression Anxiety - Continue Escitalopram, Lorazepam and Trazodone Hypoalbuminemia - Dietary follow up Hypotension, resolved PROPHYLAXIS DVT- compression stockings GI- not indicated CODE STATUS: DNR/DNI DISPOSITION: Patient will remain admitted for IV antibiotics, respiratory therapy and pain control.
[2019-10-21] MEDS ORDERED: fentaNYL 75 MCG/HR Transdermal Patch TRDERM SCH (21:00)
[2019-10-21] MEDS: Simvastatin 20 MG Tab PO SCH (21:20)
[2019-10-21] MEDS: traZODone 50 MG Tab PO SCH (21:20)
[2019-10-21] MEDS: Citalopram 20 MG Tab PO SCH (21:20)
[2019-10-22] MEDS: Levofloxacin/Dextrose 5%-Water 750 MG in Premix Bag 1 BAG IV SCH (00:03)
[2019-10-22] MEDS: HYDROmorphone 2 MG Tab PO PRN ×2 (01:58→08:58)
[2019-10-22] MEDS: Diclofenac Sodium 1% Gel 100 GM Tube TOP SCH ×4 (02:03→15:03)
[2019-10-22] MEDS: LORazepam 1 MG Tab PO SCH ×3 (02:18→12:08)
[2019-10-22] MEDS: Piperacillin/Tazobactam 4.5 GM in Sodium Chloride 0.9% 100 ML IV SCH (06:08)
[2019-10-22] MEDS: Lactated Ringers 1,000 ML IV SCH (08:47)
[2019-10-22] MEDS: Polyethylene Glycol 3350 Powder 17 GM Packet PO SCH (08:47)
[2019-10-22] MEDS: Losartan 100 MG Tab PO SCH (08:48)
[2019-10-22] MEDS: Gabapentin 100 MG Cap PO SCH ×2 (08:49→15:03)
[2019-10-22] MEDS: Cyclobenzaprine 10 MG Tab PO SCH ×2 (08:49→15:03)
[2019-10-22] MEDS: Terazosin 5 MG Cap PO SCH (08:50)
[2019-10-22] MEDS: Magnesium Oxide 400 MG Tab PO SCH (08:50)
[2019-10-22] MEDS: busPIRone 15 MG Tab PO SCH (08:51)
[2019-10-22] MEDS: Baclofen 10 MG Tab PO SCH ×2 (08:51→12:08)
[2019-10-22] MEDS: Carbidopa/Levodopa 25-100 MG Tab PO SCH ×2 (08:51→12:08)
[2019-10-22] MEDS: Celecoxib 100 MG Cap PO SCH (08:51)
[2019-10-22] MEDS ORDERED: Vancomycin 1 GM, Vancomycin 500 MG in Sodium Chloride 0.9% 500 ML IV SCH (10:00)
[2019-10-22] MEDS: Vancomycin 1 GM, Vancomycin 250 MG in Sodium Chloride 0.9% 250 ML IV SCH (10:15)
[2019-10-22] MEDS ORDERED: Magnesium Sulfate/Water 2 GM in Premix Bag 1 BAG IV ONE (11:00)
--- NOTE | 2019-10-22 12:45 | PCM.DCSUM1 ---
Discharge Summary - Hospital Course HPI Initial Comments: 64-year-old male from [facility] presents to the ED per [facility] with reported new onset of high fever and lethargy. Temperature reportedly greater than 101.6 at the senior care. Diagnosis: Stroke: No - Discharge Data Discharge Date: 10/22/19 Discharge Disposition: DC/Tfer to SNF 03 Condition: Good - Referral to Home Health Primary Care Physician: Med Peace MD - Discharge Diagnosis/Problem(s) (1) Healthcare-associated pneumonia SNOMED Code(s): 943838353, 354866029 ICD Code: J18.9 - PNEUMONIA, UNSPECIFIED ORGANISM Status: Acute Current Visit: Yes (2) Detection of methicillin resistant Staphylococcus aureus (MRSA) DNA SNOMED Code(s): 849278069 ICD Code: R89.9 - UNSP ABNORMAL FINDING IN SPECIMENS FROM OTH ORG/TISS Status: Acute Current Visit: Yes (3) Leukocytosis SNOMED Code(s): 395182740, 909510259 ICD Code: D72.829 - ELEVATED WHITE BLOOD CELL COUNT, UNSPECIFIED Status: Acute Current Visit: Yes (4) Acute respiratory acidosis SNOMED Code(s): 54087734 ICD Code: E87.2 - ACIDOSIS Status: Acute Current Visit: Yes (5) Fever SNOMED Code(s): 994417797 ICD Code: R50.9 - FEVER, UNSPECIFIED Status: Acute Current Visit: Yes (6) Hypoalbuminemia SNOMED Code(s): 837144170 ICD Code: E88.09 - [facility] DISORDERS OF PLASMA-PROTEIN METABOLISM, NEC Status: Acute Current Visit: Yes (7) Hypotension SNOMED Code(s): 74843516 ICD Code: I95.9 - HYPOTENSION, UNSPECIFIED Status: Acute Current Visit: Yes Qualifiers: Hypotension type: unspecified hypotension type Qualified Code(s): I95.9 - Hypotension, unspecified (8) Pneumonia SNOMED Code(s): 437155128 ICD Code: J18.9 - PNEUMONIA, UNSPECIFIED ORGANISM Status: Acute Current Visit: Yes Qualifiers: Pneumonia type: due to unspecified organism Laterality: bilateral Lung location: lower lobe of lung Qualified Code(s): J18.9 - Pneumonia, unspecified organism (9) Progressive supranuclear ophthalmoplegia SNOMED Code(s): 49440994 ICD Code: G23.1 - PROGRESSIVE SUPRANUCLEAR OPHTHALMOPLEGIA Status: Acute Current Visit: Yes (10) Urinary tract infection SNOMED Code(s): 72246852 ICD Code: N39.0 - URINARY TRACT INFECTION, SITE NOT SPECIFIED Status: Acute Current Visit: Yes Qualifiers: Urinary tract infection type: site unspecified Hematuria presence: without hematuria Qualified Code(s): N39.0 - Urinary tract infection, site not specified (11) Fall as cause of accidental injury at home as place of occurrence SNOMED Code(s): 41885664 ICD Code: W19.XXXA - UNSPECIFIED FALL, INITIAL ENCOUNTER; Y92.009 - UNSP PLACE IN UNSP NON-INSTITUT (PRIVATE) RESIDENCE PLACE Status: Acute Current Visit: No Qualifiers: Encounter type: initial encounter Qualified Code(s): W19.XXXA - Unspecified fall, initial encounter; Y92.009 - Unspecified place in unspecified non- institutional (private) residence as the place of occurrence of the external cause (12) Ribs, multiple fractures SNOMED Code(s): 3277757 ICD Code: S22.49XA - MULTIPLE FRACTURES OF RIBS, UNSP SIDE, INIT FOR CLOS FX Status: Acute Current Visit: No Qualifiers: Encounter type: initial encounter Fracture type: closed Laterality: left Qualified Code(s): S22.42XA - Multiple fractures of ribs, left side, initial encounter for closed fracture (13) Hypertension SNOMED Code(s): 12502377 ICD Code: I10 - ESSENTIAL (PRIMARY) HYPERTENSION Status: Acute Current Visit: Yes (14) Dyslipidemia SNOMED Code(s): 671510758 ICD Code: E78.5 - HYPERLIPIDEMIA, UNSPECIFIED Status: Acute Current Visit: Yes (15) Benign prostate hyperplasia SNOMED Code(s): 887369451 ICD Code: N40.0 - BENIGN PROSTATIC HYPERPLASIA WITHOUT LOWER URINRY TRACT SYMP Status: Acute Current Visit: Yes (16) GERD (gastroesophageal reflux disease) SNOMED Code(s): 834201024 ICD Code: K21.9 - GASTRO-ESOPHAGEAL REFLUX DISEASE WITHOUT ESOPHAGITIS Status: Acute Current Visit: Yes (17) Chronic neck pain SNOMED Code(s): 0464113115383 ICD Code: M54.2 - CERVICALGIA; G89.29 - OTHER CHRONIC PAIN Status: Acute Current Visit: Yes (18) Anxiety SNOMED Code(s): 34026916 ICD Code: F41.9 - ANXIETY DISORDER, UNSPECIFIED Status: Acute Current Visit: Yes (19) Thrombocytopenia SNOMED Code(s): 911216963 ICD Code: D69.6 - THROMBOCYTOPENIA, UNSPECIFIED Status: Acute Current Visit: Yes (20) Wheelchair bound SNOMED Code(s): 355747672, 464027545 ICD Code: Z99.3 - DEPENDENCE ON WHEELCHAIR Status: Acute Current Visit: Yes - Patient Summary/Data Hospital Course: 10/20/19 - Sent from senior care for fever and cough - Unresponsive to verbal and physical stimuli in ER - VS: 86/52, 82x;, Temp 99.9, Pulse ox 80% on RA - Tested last Friday at [facility] for COVID--> negative - Pulse ox increased to 90% on NRB mask - Lab results - WBC 11.88, Hb 12.4, Hct 39.9, Plt 164 - Chemistry: Na 140, K 4.3, Cl 105, CO2 28, BUN 17, Cr 0.8, GFR > 60 - LFTs: T bili 0.9, AP 86, AST 11, ALT 8, Tprot 6.2, albumin 2.9 - ABGs 7.3/54.6/83/26/94.6 on 32% FiO2 PLAN - Start Azithromycin and Rocephin - Procalcitonin every 48 hours - Trend temperature - RT assess and treat - Bronson Hernandez - Incentive spirometry - Hold home Losartan - Follow up on cultures from admission - Continue Baclofen, Fentanyl, Cyclobenzaprine - Continue Carbidopa/Levodopa - Continue Gabapentin - Incentive spirometry - Pain control - Continue Escitalopram, Lorazepam and Trazodone - Dietary consult and follow up Patient will be admitted for IV antibiotics, monitorization and respiratory therapy MRSA PCR reported positive--> started on Vancomycin, levofloxacin and Zosyn to cover HAP 10/21/19 - Tapered off O2 supplementation at 8:30AM - Eating 100% of regular diet - Having speech, PT and OT at [facility] - Still having pain on left chest where he fractured his ribs VS trend - BP 109-143/63-73 - Tmax 99.9 at midnight - HR 75-82 - SatO2 >80% (one time) after that >93% Intake and Output - UO 2,575 - 24h balance: +161 New lab results - WBC down from 11.88 to 5.95 - Hb down from 12.4 to 11.3 - Plt down from 164 to 135 - Magnesium stable at 1.8 - K down from 4.3 to 3.9 - Blood cultures negative x 1 day PLAN - Day 1 Levaquin, Vancomycin and Zosyn - Procalcitonin every 48 hours - Trend temperature - RT assess and treat - Bronson Hernandez - Incentive spirometry - Hold home Losartan - Induce sputum today - Continue Baclofen, Fentanyl, Cyclobenzaprine - Continue Carbidopa/Levodopa - Continue Gabapentin - Incentive spirometry - Pain control - Start diclofenac topical every 4 hours - Morris catheter care - Continue Escitalopram, Lorazepam and Trazodone - Dietary follow up 10/22/19 - Off NC since 7AM 10/20 - Afebrile since admission - Tolerating regular diet - Day 2 of triple antibiotic coverage (Vancomycin, Levaquin and Zosyn) - Transition to PO Augmentin and Bactrim - Replace magnesium with 2g MgSO4 - Pain improved with Voltaren - Breathing is better - Still having neck pain VS trend - BP 116-158/63-90 - Tmax 98.1 - HR 58-81 - SatO2 > 91% Lab results - Hb up from 11.3 to 12.8 - Magnesium down from 1.8 to 1.4 - Platelets up from 135 to 161 - Urine culture finalized with contaminants - Blood cultures negative x 2 days - Sputum finalized with yeast - Patient Instructions Diet: Usual Diet as Tolerated Other/Special Instructions: 1. Please use incentive spirometer every hour while awake for 5-10 times while still having pain on left chest from fractures. 2. It is important that you use your pain control regimen only when needed rather than scheduled as this will make your body become resistant to the medications and they will not be affected. 3. It is very important you take your antibiotics as directed until course is finished - Discharge Plan *PRESCRIPTION DRUG MONITORING PROGRAM REVIEWED*: Not Applicable *COPY OF PRESCRIPTION DRUG MONITORING REPORT IN PATIENT DINESH: Not Applicable Prescriptions/Med Rec: Trolamine Salicylate/Aloe Vera [Aspercreme 10% Cream] 2 gm TP Q4H #10 tube LORazepam [Ativan] 1 mg PO QID #120 dose Amoxicillin/Clavulanate K [Augmentin 875-125 MG] 1 tab PO BID #10 tablet Baclofen 10 mg PO QID PRN #120 dose PRN Reason: Spasms busPIRone [Buspar] 15 mg PO BID #60 tablet Carbidopa/Levodopa [Carbidopa-Levodopa 25-100] 1 tab PO QID #120 tablet Celecoxib [CeleBREX] 200 mg PO DAILY PRN #30 cap PRN Reason: Pain (Moderate 4-6) Losartan [Cozaar] 50 mg PO DAILY #30 dose HYDROmorphone [Dilaudid] 2 mg PO Q6H PRN #40 dose PRN Reason: Pain (Severe 7-10) fentaNYL [Duragesic] 75 mcg TD Q72H #10 patch guaiFENesin [Fenesin IR] 400 mg PO Q4H PRN #60 tablet PRN Reason: Cough Cyclobenzaprine [Flexeril] 5 mg PO TID PRN #90 PRN Reason: Spasms Terazosin [Hytrin] 5 mg PO BID #60 cap Lactulose [Kristalose] 20 gm PO DAILY PRN #120 packet PRN Reason: Constipation Escitalopram Oxalate [Lexapro] 20 mg PO BEDTIME #30 dose Magnesium Oxide [Magnesium] 400 mg PO BID #60 dose polyethylene glycoL 3350 [MiraLAX] 17 gm PO DAILY #30 packet Gabapentin [Neurontin] 200 mg PO TID #120 dose Bismuth Subsalicylate [Pepto-Bismol] 262 mg PO Q6H PRN #120 tab.chew PRN Reason: Indigestion Sennosides/Docusate Sodium [Senna Plus Tablet] 2 each PO TID PRN #180 dose PRN Reason: Constipation Sulfamethoxazole/Trimethoprim [Septra DS] 1 tab PO BID #10 tablet Simethicone 80 mg PO Q8H PRN #90 tab.chew PRN Reason: Bloating Simvastatin 20 mg PO BEDTIME #30 dose Benzonatate [Tessalon Perle] 100 mg PO TID PRN #30 capsule PRN Reason: Cough traZODone HCl [Trazodone HCl] 100 mg PO BEDTIME #30 dose Acetaminophen [Tylenol Arthritis Pain] 650 mg PO Q6H PRN #120 dose PRN Reason: Pain Diclofenac Sodium [Voltaren 1% Gel] 2 gm TOP Q4H #10 tube Ondansetron [Zofran ODT] 4 mg PO Q6H PRN #20 tab.dis PRN Reason: nausea, able to take PO Home Medications: Home Meds Acetaminophen [Tylenol Arthritis Pain] 650 mg PO Q6H PRN #120 dose 10/22/19 [Rx] Amoxicillin/Clavulanate K [Augmentin 875-125 MG] 1 tab PO BID #10 tablet 10/22/19 [Rx] Baclofen 10 mg PO QID PRN #120 dose 10/22/19 [Rx] Benzonatate [Tessalon Perle] 100 mg PO TID PRN #30 capsule 10/22/19 [Rx] Bismuth Subsalicylate [Pepto-Bismol] 262 mg PO Q6H PRN #120 tab.chew 10/22/19 [Rx] Carbidopa/Levodopa [Carbidopa-Levodopa 25-100] 1 tab PO QID #120 tablet 10/22/19 [Rx] Celecoxib [CeleBREX] 200 mg PO DAILY PRN #30 cap 10/22/19 [Rx] Cyclobenzaprine [Flexeril] 5 mg PO TID PRN #90 10/22/19 [Rx] Diclofenac Sodium [Voltaren 1% Gel] 2 gm TOP Q4H #10 tube 10/22/19 [Rx] Escitalopram Oxalate [Lexapro] 20 mg PO BEDTIME #30 dose 10/22/19 [Rx] Gabapentin [Neurontin] 200 mg PO TID #120 dose 10/22/19 [Rx] HYDROmorphone [Dilaudid] 2 mg PO Q6H PRN #40 dose 10/22/19 [Rx] LORazepam [Ativan] 1 mg PO QID #120 dose 10/22/19 [Rx] Lactulose [Kristalose] 20 gm PO DAILY PRN #120 packet 10/22/19 [Rx] Losartan [Cozaar] 50 mg PO DAILY #30 dose 10/22/19 [Rx] Magnesium Oxide [Magnesium] 400 mg PO BID #60 dose 10/22/19 [Rx] Ondansetron [Zofran ODT] 4 mg PO Q6H PRN #20 tab.dis 10/22/19 [Rx] Sennosides/Docusate Sodium [Senna Plus Tablet] 2 each PO TID PRN #180 dose 10/22/19 [Rx] Simethicone 80 mg PO Q8H PRN #90 tab.chew 10/22/19 [Rx] Simvastatin 20 mg PO BEDTIME #30 dose 10/22/19 [Rx] Sulfamethoxazole/Trimethoprim [Septra DS] 1 tab PO BID #10 tablet 10/22/19 [Rx] Terazosin [Hytrin] 5 mg PO BID #60 cap 10/22/19 [Rx] Trolamine Salicylate/Aloe Vera [Aspercreme 10% Cream] 2 gm TP Q4H #10 tube 10/22/19 [Rx] busPIRone [Buspar] 15 mg PO BID #60 tablet 10/22/19 [Rx] fentaNYL [Duragesic] 75 mcg TD Q72H #10 patch 10/22/19 [Rx] guaiFENesin [Fenesin IR] 400 mg PO Q4H PRN #60 tablet 10/22/19 [Rx] polyethylene glycoL 3350 [MiraLAX] 17 gm PO DAILY #30 packet 10/22/19 [Rx] traZODone HCl [Trazodone HCl] 100 mg PO BEDTIME #30 dose 10/22/19 [Rx] Oxygen Therapy Mode: Room Air Patient Handouts: Sepsis, Diagnosis, Adult Referrals: Med Peace MD [Primary Care Provider] - - Discharge Summary/Plan Comment DC Time >30 min.: Yes (coordinating transfer back to [facility] ) - General Info Date of Service: 10/22/19 Subjective Update: Slept [place] Tolerated diet BM yesterday - Patient Data Vitals - Most Recent: Last Vital Signs Temp 97.5 F 10/22/19 11:22 Pulse 80 10/22/19 11:22 Resp 20 10/22/19 11:22 BP 152/75 H 10/22/19 11:22 Pulse Ox 94 L 10/22/19 11:22 Weight - Most Recent: 79.107 kg - Exam Quality Assessment: Reports: Urine Catheter. Denies: Supplemental Oxygen General: Reports: Alert, Oriented, Cooperative, No Acute Distress HEENT: Reports: Pupils Equal, Pupils Reactive, EOMI, Mucous Membr. Moist/[place] Lungs: Reports: Other (decreased inspiratory effort, seldom crackles and rhonchi at bases , left>right, no wheezing) Cardiovascular: Reports: Regular Rate, Regular Rhythm. Denies: Murmurs, Gallops, Rubs GI/Abdominal Exam: Normal Bowel Sounds, Soft, Non-Tender. No: Distended, Guarding, Rigid, Rebound Extremities: Other (contracture of left arm, no swellling) Skin: Reports: Dry, Intact, Cool Neurological: Reports: No New Focal Deficit
[2019-10-22] MEDS ORDERED: Amoxicillin/Clavulanate K 875-125 MG Tab PO SCH (21:00)
[2019-10-22] MEDS ORDERED: Sulfamethoxazole/Trimethoprim 800-160 MG Tab PO SCH (21:00)
== END 2019-10-22 14:15 | DRG 194 ==
LOC: JD.ED 00:25 → JD.MS 11:28
PROVIDERS: ADMIT Internal Medicine; ATTEND Internal Medicine
DX: J18.9 Pneumonia, unspecified organism (principal); S22.42XA Multiple fractures of ribs, left side, initial encounter for closed fracture; E87.2 Acidosis; G23.1 Progressive supranuclear ophthalmoplegia [Steele-Richardson-Olszewski]; N39.0 Urinary tract infection, site not specified; M62.40 Contracture of muscle, unspecified site; Z66 Do not resuscitate; R89.9 Unspecified abnormal finding in specimens from other organs, systems and tissues; D72.829 Elevated white blood cell count, unspecified; I95.9 Hypotension, unspecified; W19.XXXA Unspecified fall, initial encounter; I10 Essential (primary) hypertension; E78.5 Hyperlipidemia, unspecified; K21.9 Gastro-esophageal reflux disease without esophagitis; G89.29 Other chronic pain; M54.2 Cervicalgia; R47.9 Unspecified speech disturbances; F41.9 Anxiety disorder, unspecified; Z20.828 Contact with and (suspected) exposure to other viral communicable diseases; D69.6 Thrombocytopenia, unspecified; H54.7 Unspecified visual loss; E78.00 Pure hypercholesterolemia, unspecified; K44.9 Diaphragmatic hernia without obstruction or gangrene; N40.1 Benign prostatic hyperplasia with lower urinary tract symptoms; R33.8 Other retention of urine; M19.90 Unspecified osteoarthritis, unspecified site; G20 Parkinson's disease; Y92.009 Unspecified place in unspecified non-institutional (private) residence as the place of occurrence of the external cause; Z99.3 Dependence on wheelchair; Z79.899 Other long term (current) drug therapy; F32.9 Major depressive disorder, single episode, unspecified
CPT/HCPCS: 36415; 36600; 71045; 80053; 81001; 82803; 83605; 83735; 83880; 84145; 84484; 85025; 85610; 85730; 86140; 87040 ×2; 87086; 93005 ×2; A9270 ×5; J0456; J0696; J7030 ×2; J7042; J7050 ×2; U0002; 51702; 80048; 80202; 84100; 87070; 87077; 87106; 87186; 87205; 87641; 93010; 94761; 96361; 96365; 96367; 99285; 99285-25; J1956; J2543; J3370; J3475; J7040; J7120

== ENCOUNTER 2019-12-14 17:04 | Inpatient (IN) | payer MEDICARE, BC ==
--- NOTE | 2019-12-14 17:57 | EDM.PDOC ---
ED HPI GENERAL MEDICAL PROBLEM - General Chief Complaint: Respiratory Problem Stated Complaint: SENT FROM [facility] Time Seen by Provider: 12/14/19 17:40 Source of Information: Reports: Patient, [facility] Records History Limitations: Reports: No Limitations - History of Present Illness INITIAL COMMENTS - FREE TEXT/NARRATIVE: 64-year-old male presents per [facility] ambulance from [facility] where he is a resident. 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 He has been seen almost on a monthly basis the last 3 months with acute onset of fever and sepsis. His last admission to our hospital was on October 19 of this year when he presented in a moribund condition due to sepsis. It was felt that he had bilateral pneumonia on chest x-ray and proved to be Covid negative at that time. At some point in his admission he was identified to have MRSA. He was transitioned therefore to vancomycin and Levaquin intravenously and then to Augmentin and Bactrim orally. Patient denies any recent choking on food or aspiration. He denies cough or sputum production. He was sent to the ED primarily for hypoxemia with O2 sats of 88 to 90% on recurrent examination this afternoon. On last admission he was treated with IV antibiotics Zosyn and Rocephin and combination of vancomycin and Levaquin during his hospitalization. He is alert and oriented at this time and able to answer my questions. He has very limited mobility of his extremities and left arm is in a sling. Note the patient is on fentanyl patch and lorazepam which could contribute to hypoxemia as well. Paramedics placed him on 3 L/min and on arrival his O2 sats are 95% on room air. However on my examination he is warm to palpation and have is definite fever. Blood pressure is recorded as 126/64. She has had frequent COVID-19 studies done over the last several weeks and apparently has never proved positive. Onset: Today (Cording to [facility] staff he developed hypoxemia this afternoon. They were concerned that he may have aspirated but he presents with no history of this.) Onset Date: 12/14/19 Duration: Hour(s):, Constant, Getting Worse Location: Reports: Other (Presents to the ED for evaluation of hypoxemia i dentified at the group home on multiple tests this afternoon.) Quality: Reports: Other (Patient denies any worsening of his chronic pain syndrome.) Severity: Moderate Improves with: Reports: Other (02 sats are 95% on 3 L/min by nasal cannula.) Worsens with: Reports: None Context: Reports: Other (Patient has a debilitating neurological disease which has been progressive. He therefore is bedbound and/or wheelchair-bound.). Denies: Activity, Exercise, Lifting, Sick Contact, Trauma Associated Symptoms: Reports: Malaise, Weakness (Neck.). Denies: No Other Symptoms, Confusion, Chest Pain, Cough, cough w sputum, Diaphoresis, Fever/Chills, Headaches, Loss of Appetite, Nausea/Vomiting, Rash, Seizure, Shortness of Breath, Syncope Treatments PACKAGER: Reports: Other (see below) Left Arm Pain Score (Numeric/FACES): 6 Left Neck Pain Score (Numeric/FACES): 6 - Related Data Allergies Allergy/AdvReac Type Severity Reaction Status Date / Time No Known Allergies Allergy Verified 10/20/19 17:37 Home Meds: Home Meds Acetaminophen [Tylenol Arthritis Pain] 650 mg PO Q6H PRN #120 dose 10/22/19 [Rx] Benzonatate [Tessalon Perle] 100 mg PO TID PRN #30 capsule 10/22/19 [Rx] Carbidopa/Levodopa [Carbidopa-Levodopa 25-100] 1 tab PO QID #120 tablet 10/22/19 [Rx] Celecoxib [CeleBREX] 200 mg PO DAILY PRN #30 cap 10/22/19 [Rx] Cyclobenzaprine [Flexeril] 5 mg PO TID PRN #90 10/22/19 [Rx] Escitalopram Oxalate [Lexapro] 20 mg PO BEDTIME #30 dose 10/22/19 [Rx] Gabapentin [Neurontin] 200 mg PO TID #120 dose 10/22/19 [Rx] HYDROmorphone [Dilaudid] 2 mg PO Q6H PRN #40 dose 10/22/19 [Rx] Lactulose [Kristalose] 20 gm PO DAILY PRN #120 packet 10/22/19 [Rx] Losartan [Cozaar] 50 mg PO DAILY #30 dose 10/22/19 [Rx] Magnesium Oxide [Magnesium] 400 mg PO BID #60 dose 10/22/19 [Rx] Ondansetron [Zofran ODT] 4 mg PO Q6H PRN #20 tab.dis 10/22/19 [Rx] Simvastatin 20 mg PO BEDTIME #30 dose 10/22/19 [Rx] Terazosin [Hytrin] 5 mg PO BID #60 cap 10/22/19 [Rx] busPIRone [Buspar] 15 mg PO BID #60 tablet 10/22/19 [Rx] fentaNYL [Duragesic] 75 mcg TD Q72H #10 patch 10/22/19 [Rx] guaiFENesin [Fenesin IR] 400 mg PO Q4H PRN #60 tablet 10/22/19 [Rx] traZODone HCl [Trazodone HCl] 100 mg PO BEDTIME #30 dose 10/22/19 [Rx] Baclofen 10 mg PO QID 12/14/19 [History] LORazepam [Ativan] 0.5 mg PO BID 12/14/19 [History] LORazepam [Ativan] 1 mg PO BID 12/14/19 [History] Sennosides/Docusate Sodium [Senna Plus 8.6-50 mg Tablet] 1 tab PO DAILY 12/14/19 [History] Sennosides/Docusate Sodium [Senna Plus Tablet] 1 each PO TID PRN 12/14/19 [History] Trolamine Salicylate/Aloe Vera [Aspercreme 10% Cream] 2 gm TP Q4H PRN 12/14/19 [History] hydroCHLOROthiazide [Hydrochlorothiazide] 12.5 mg PO DAILY 12/14/19 [History] polyethylene glycoL 3350 [MiraLAX] 17 gram PO DAILY 12/14/19 [History] Past Medical History HEENT History: Reports: Impaired Vision Other HEENT History: Wears glasses Cardiovascular History: Reports: High Cholesterol, Hypertension Respiratory History: Reports: Intubation, Previous Gastrointestinal History: Reports: GERD, Hiatal Hernia Genitourinary History: Reports: BPH, Retention, Urinary Musculoskeletal History: Reports: Arthritis, Neck Pain, Chronic, Osteoarthritis Other Musculoskeletal History: fall; fractured ribs; muscle spasms Neurological History: Reports: Parkinson's, Speech Problems, Vertigo Other Neuro History: 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 Psychiatric History: Reports: Anxiety - Past Surgical History Cardiovascular Surgical History: Reports: None - History Comment History Comment: Patient has chronic severe generalized pain. He is currently on Dilaudid 2 mg 3 times daily and fentanyl patch. 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 Social & Family History - Family History Family Medical History: Noncontributory - Tobacco Use Tobacco Use Status *Q: Former Tobacco User Used Tobacco, but Quit: Yes Month/Year Tobacco Last Used: 30 yrs - Caffeine Use Caffeine Use: Reports: Coffee, Soda - Living Situation & Occupation Living situation: Reports: Single, Alone, Extended Care Facility ([facility] Occupation: Disabled ED ROS GENERAL - Review of Systems Review Of Systems: See Below Constitutional: Reports: Fever (My examination. Patient was not reported to have a fever by nursing staff.), Weakness (Generalized weakness and he is bed confined or wheelchair confined due to progressive supranuclear ophthalmoplegia.) HEENT: Reports: Other (Occasional troubles swallowing. Risk of aspiration noted.) Respiratory: Denies: No Symptoms, Shortness of Breath, Wheezing, Pleuritic Chest Pain, Cough Cardiovascular: Denies: Chest Pain, Blood Pressure Problem, Claudication, Orthopnea Endocrine: Reports: Fatigue (Chronic for him.) GI/Abdominal: Reports: No Symptoms, Other (Patient is not a bowel cleanse regimen.) : Reports: Incontinence Musculoskeletal: Reports: Neck Pain, Back Pain, Other Skin: Reports: No Symptoms Neurological: Reports: Difficulty Walking (She is unable to walk due to progressive supranuclear ophthalmoplegia. He is confined either to bed or wheelchair.), Weakness. Denies: Confusion, Dizziness, Headache, Numbness, Syncope, Tingling Psychiatric: Reports: No Symptoms Hematologic/Lymphatic: Reports: No Symptoms Immunologic: Reports: No Symptoms ED EXAM, GENERAL - Physical Exam Exam: See Below Exam Limited By: Other (Patient lies primarily to the left side but is able to make eye contact and answer all questions appropriately today. He is alert and oriented to person place and time. He denies any history of aspiration or significant choking on food.) General Appearance: Alert, No Apparent Distress, Other (Temperature was 37.2 although he feels warmer than this on examination. Heart rate is 83 respiratory 24 with O2 sats reported to be 86 to 88% on room air. 94 to 95% on 3 L per nasal cannula. Blood pressure is 126 on 64 on initial evaluation.) Ears: Normal TMs Throat/Mouth: Other Head: Atraumatic, Normocephalic (Tongue is mildly dry. No appreciable oropharyngeal infection.) Neck: Limited Range of Motion (Patient). No: Lymphadenopathy (L) ( has very limited mobility of his neck.), Lymphadenopathy (R) Respiratory/Chest: Lungs Clear, Respiratory Distress (Tachypnea on exam and hypoxic on room air.), Decreased Breath Sounds (Creased breath sounds to the lower 40% of lung frankel bilaterally due to neurological disease and inability to take a full deep breath.), Other (There is a fentanyl patch right upper anterior chest.). No: Normal Breath Sounds Cardiovascular: Normal Peripheral Pulses, Regular Rate, Rhythm, No Edema, No Gallop, No Murmur, No Rub Peripheral Pulses: 2+: Carotid (L), Carotid (R), Posterior Tibial (L), Posterior Tibial (R), Dorsalis Pedis (L), Dorsalis Pedis (R) GI/Abdominal: Normal Bowel Sounds, Soft, Non-Tender, No Organomegaly, No Mass, Pelvis Stable Back Exam: No: Full Range of Motion Extremities: Normal Inspection, No Pedal Edema, Other (Left arm is in a sling.) Neurological: Alert, Oriented, Normal Cognition, Other (Diffuse hyperreflexia at the biceps and knee jerks.). No: CN II-XII Intact Psychiatric: Normal Affect, Normal Mood Skin Exam: Warm, Dry, Intact, Normal Color, No Rash #1 Interpretation EKG Date: 12/14/19 Time: 18:30 Rhythm: NSR Rate (Beats/Min): 86 [place]: Normal P-Wave: Present QRS: Other (Show poor R wave progression. Tall R wave in lead I consider left ventricular hypertrophy pattern.) ST-T: Other (T wave flattening aVL and lead I and lead aVF nonspecific finding.) QT: Normal EKG Interpretation Comments: Borderline ECG Course - Vital Signs Last Recorded V/S: Last Vital Signs Temp 37.2 C 12/14/19 17:28 Pulse 83 12/14/19 17:28 Resp 24 H 12/14/19 17:28 BP 126/64 12/14/19 17:28 Pulse Ox 86 L 12/14/19 17:28 - Orders/Labs/Meds Orders: Active Orders 24 hr Category Date Time Status Admission Status [Patient Status] [ADT] Routine ADT 12/14/19 19:49 Active Admission Status [Patient Status] [ADT] Routine ADT 12/14/19 19:52 Active EKG Documentation Completion [RC] STAT Care 12/14/19 17:58 Active Oxygen Therapy [RC] ASDIRECTED Care 12/14/19 17:59 Active Chest 1V Frontal [CR] Stat Exams 12/14/19 17:58 Taken ABG [BLOOD GAS ARTERIAL] [BG] Stat Lab 12/14/19 18:00 Ordered CULTURE BLOOD [BC] Stat Lab 12/14/19 18:20 Received CULTURE BLOOD [BC] Stat Lab 12/14/19 18:27 Received CULTURE URINE [RM] Stat Lab 12/14/19 19:58 Ordered Dextrose 5%-0.9% NaCl [Dextrose 5%-Normal Saline] 1,000 Med 12/14/19 18:00 Active ml IV ASDIRECTED Blood Culture x2 Reflex Set [OM.PC] Stat Oth 12/14/19 17:59 Ordered Medication Orders Dextrose/Sodium Chloride (Dextrose 5%-Normal Saline) 1,000 mls @ 150 mls/hr IV ASDIRECTED JASPER Last Admin: 12/14/19 18:38 Dose: 150 mls/hr Documented by: DWAYNE Labs: Laboratory Tests 12/14/19 12/14/19 12/14/19 Range/Units 18:20 18:20 18:20 WBC 6.40 (4.23-9.07) K/mm3 RBC 4.73 (4.63-6.08) M/mm3 Hgb 12.9 L (13.7-17.5) gm/dl Hct 41.2 (40.1-51.0) % MCV 87.1 (79.0-92.2) fl MCH 27.3 (25.7-32.2) pg MCHC 31.3 L (32.2-35.5) g/dl RDW Std Deviation 42.4 (35.1-43.9) fL Plt Count 122 L (163-337) K/mm3 MPV 11.5 (9.4-12.3) fl Neutrophils % (Manual) 87 H (40-60) % Band Neutrophils % 2 (0-10) % Lymphocytes % (Manual) 8 L (20-40) % Atypical Lymphs % 0 % Monocytes % (Manual) 3 (2-10) % Eosinophils % (Manual) 0 L (0.8-7.0) % Basophils % (Manual) 0 L (0.2-1.2) Platelet Estimate Decreased Plt Morphology Comment See note Hypochromasia 1+ slight RBC Morph Comment Not Reportable PT 12.2 H (9.7-12.0) SECONDS INR 1.14 APTT 33.2 H (21.7-31.4) SECONDS Sodium 139 (136-145) mEq/L Potassium 3.9 (3.5-5.1) mEq/L Chloride 101 (98-107) mEq/L Carbon Dioxide 31 (21-32) mEq/L Anion Gap 10.9 (5-15) BUN 20 H (7-18) mg/dL Creatinine 0.8 (0.7-1.3) mg/dL Est Cr Clr Drug Dosing 95.82 mL/min Estimated GFR (MDRD) > 60 (>60) mL/min BUN/Creatinine Ratio 25.0 H (14-18) Glucose 88 (80-115) mg/dL Lactic Acid (0.4-2.0) mmol/L Calcium 8.6 (8.5-10.1) mg/dL Magnesium 1.6 L (1.8-2.4) mg/dl Total Bilirubin 0.8 (0.2-1.0) mg/dL AST 11 L (15-37) U/L ALT 12 L (16-63) U/L Alkaline Phosphatase 82 (46-116) U/L Troponin I < 0.017 (0.00-0.056) ng/mL C-Reactive Protein 10.2 H* (<1.0) mg/dL NT-Pro-B Natriuret Pep (0-125) pg/mL Total Protein 6.8 (6.4-8.2) g/dl Albumin 3.1 L (3.4-5.0) g/dl Globulin 3.7 gm/dL Albumin/Globulin Ratio 0.8 L (1-2) Urine Color (Yellow) Urine Appearance (Clear) Urine pH (5.0-8.0) Ur Specific [place] (1.005-1.030) Urine Protein (Negative) Urine Glucose (UA) (Negative) Urine Ketones (Negative) Urine Occult Blood (Negative) Urine Nitrite (Negative) Urine Bilirubin (Negative) Urine Urobilinogen (0.2-1.0) Ur Leukocyte Esterase (Negative) Urine RBC (0-5) /hpf Urine WBC (0-5) /hpf Ur Squamous Epith Cells (0-5) /hpf Urine Bacteria (FEW) /hpf Urine Mucus (FEW) /hpf SARS-CoV-2 RNA (CAMILLA) (NEGATIVE) 12/14/19 12/14/19 12/14/19 Range/Units 18:20 18:20 18:30 WBC (4.23-9.07) K/mm3 RBC (4.63-6.08) M/mm3 Hgb (13.7-17.5) gm/dl Hct (40.1-51.0) % MCV (79.0-92.2) fl MCH (25.7-32.2) pg MCHC (32.2-35.5) g/dl RDW Std Deviation (35.1-43.9) fL Plt Count (163-337) K/mm3 MPV (9.4-12.3) fl Neutrophils % (Manual) (40-60) % Band Neutrophils % (0-10) % Lymphocytes % (Manual) (20-40) % Atypical Lymphs % % Monocytes % (Manual) (2-10) % Eosinophils % (Manual) (0.8-7.0) % Basophils % (Manual) (0.2-1.2) Platelet Estimate Plt Morphology Comment Hypochromasia RBC Morph Comment PT (9.7-12.0) SECONDS INR APTT (21.7-31.4) SECONDS Sodium (136-145) mEq/L Potassium (3.5-5.1) mEq/L Chloride (98-107) mEq/L Carbon Dioxide (21-32) mEq/L Anion Gap (5-15) BUN (7-18) mg/dL Creatinine (0.7-1.3) mg/dL Est Cr Clr Drug Dosing mL/min Estimated GFR (MDRD) (>60) mL/min BUN/Creatinine Ratio (14-18) Glucose (80-115) mg/dL Lactic Acid 1.0 (0.4-2.0) mmol/L Calcium (8.5-10.1) mg/dL Magnesium (1.8-2.4) mg/dl Total Bilirubin (0.2-1.0) mg/dL AST (15-37) U/L ALT (16-63) U/L Alkaline Phosphatase (46-116) U/L Troponin I (0.00-0.056) ng/mL C-Reactive Protein (<1.0) mg/dL NT-Pro-B Natriuret Pep 37 (0-125) pg/mL Total Protein (6.4-8.2) g/dl Albumin (3.4-5.0) g/dl Globulin gm/dL Albumin/Globulin Ratio (1-2) Urine Color (Yellow) Urine Appearance (Clear) Urine pH (5.0-8.0) Ur Specific [place] (1.005-1.030) Urine Protein (Negative) Urine Glucose (UA) (Negative) Urine Ketones (Negative) Urine Occult Blood (Negative) Urine Nitrite (Negative) Urine Bilirubin (Negative) Urine Urobilinogen (0.2-1.0) Ur Leukocyte Esterase (Negative) Urine RBC (0-5) /hpf Urine WBC (0-5) /hpf Ur Squamous Epith Cells (0-5) /hpf Urine Bacteria (FEW) /hpf Urine Mucus (FEW) /hpf SARS-CoV-2 RNA (CAMILLA) Negative (NEGATIVE) 12/14/19 Range/Units 19:15 WBC (4.23-9.07) K/mm3 RBC (4.63-6.08) M/mm3 Hgb (13.7-17.5) gm/dl Hct (40.1-51.0) % MCV (79.0-92.2) fl MCH (25.7-32.2) pg MCHC (32.2-35.5) g/dl RDW Std Deviation (35.1-43.9) fL Plt Count (163-337) K/mm3 MPV (9.4-12.3) fl Neutrophils % (Manual) (40-60) % Band Neutrophils % (0-10) % Lymphocytes % (Manual) (20-40) % Atypical Lymphs % % Monocytes % (Manual) (2-10) % Eosinophils % (Manual) (0.8-7.0) % Basophils % (Manual) (0.2-1.2) Platelet Estimate Plt Morphology Comment Hypochromasia RBC Morph Comment PT (9.7-12.0) SECONDS INR APTT (21.7-31.4) SECONDS Sodium (136-145) mEq/L Potassium (3.5-5.1) mEq/L Chloride (98-107) mEq/L Carbon Dioxide (21-32) mEq/L Anion Gap (5-15) BUN (7-18) mg/dL Creatinine (0.7-1.3) mg/dL Est Cr Clr Drug Dosing mL/min Estimated GFR (MDRD) (>60) mL/min BUN/Creatinine Ratio (14-18) Glucose (80-115) mg/dL Lactic Acid (0.4-2.0) mmol/L Calcium (8.5-10.1) mg/dL Magnesium (1.8-2.4) mg/dl Total Bilirubin (0.2-1.0) mg/dL AST (15-37) U/L ALT (16-63) U/L Alkaline Phosphatase (46-116) U/L Troponin I (0.00-0.056) ng/mL C-Reactive Protein (<1.0) mg/dL NT-Pro-B Natriuret Pep (0-125) pg/mL Total Protein (6.4-8.2) g/dl Albumin (3.4-5.0) g/dl Globulin gm/dL Albumin/Globulin Ratio (1-2) Urine Color Yellow (Yellow) Urine Appearance Clear (Clear) Urine pH 6.0 (5.0-8.0) Ur Specific [place] 1.025 (1.005-1.030) Urine Protein Trace H (Negative) Urine Glucose (UA) Negative (Negative) Urine Ketones Trace H (Negative) Urine Occult Blood Negative (Negative) Urine Nitrite Positive H (Negative) Urine Bilirubin Negative (Negative) Urine Urobilinogen 0.2 (0.2-1.0) Ur Leukocyte Esterase Negative (Negative) Urine RBC Not seen (0-5) /hpf Urine WBC 10-20 H (0-5) /hpf Ur Squamous Epith Cells 0-5 (0-5) /hpf Urine Bacteria Few (FEW) /hpf Urine Mucus Not seen (FEW) /hpf SARS-CoV-2 RNA (CAMILLA) (NEGATIVE) Meds: Medications Generic Name Dose Route Start Last Admin Trade Name Freq PRN Reason Stop Dose Admin Dextrose/Sodium Chloride 1,000 mls @ 150 mls/hr 12/14/19 18:00 12/14/19 18:38 Dextrose 5%-Normal Saline IV 150 mls/hr ASDIRECTED JASPER Administration Discontinued Medications Generic Name Dose Route Start Last Admin Trade Name Noé PRN Reason Stop Dose Admin Acetaminophen 650 mg 12/14/19 18:25 12/14/19 18:43 Tylenol PO 12/14/19 18:26 Not Given ONETIME ONE Acetaminophen 650 mg 12/14/19 18:39 12/14/19 18:45 Tylenol PO 12/14/19 18:40 Not Given ONETIME ONE Acetaminophen 650 mg 12/14/19 18:40 12/14/19 18:45 Tylenol PO 12/14/19 18:41 650 mg ONETIME ONE Administration Acetaminophen Confirm 12/14/19 18:39 12/14/19 18:43 Tylenol Administered 12/14/19 18:40 Not Given Dose 650 mg .ROUTE .STK-MED ONE Ceftriaxone Sodium 2 gm/ 100 mls @ 200 mls/hr 12/14/19 18:44 12/14/19 18:52 Sodium Chloride IV 12/14/19 19:13 200 mls/hr ONETIME ONE Administration - Radiology Interpretation Free Text/Narrative:: 64-year-old male who presents to the ED per [place] ambulance from [facility] due to identified hypoxemia over the duration of this afternoon. O2 sats were repeatedly 90% on their evaluation. Paramedics identified hypoxemia at 88 to 90% and placed him on 3 L/min by nasal cannula. Patient is confined to bed and/or wheelchair due to his progressive neurological disease. He is prone to recurrent pneumonias due to inability to fully inflate both lungs. He was admitted to the hospital October 19 with bilateral suspect pneumonia and moribund status. He survived with aggressive antibiotic treatment. He has never been proven to be Covid positive. On examination in the ED he is warm to palpation suggesting an infective process. Decreased air entry to both posterior lung frankel due to inability to take a full deep breath. Patient will require a septic work-up. Chest x-ray and urinalysis by urine cath. Blood cultures x2. He will remain on oxygen at 3 L/min by nasal cannula which is maintained O2 sats of 94 to 95% room air. ABGs to be done as well. He will have repeat Covid 19 screening. On all 650 mg solution for fever relief. Of note the patient is on fentanyl patch as well as intermittent lorazepam which could contributed to his hypoxemia as well. It was suggested by nursing staff at the group home that he may have aspirated although the patient denies choking on any food recently. He is alert oriented and able to answer all ques tions appropriately today. - Re-Assessments/Exams Free Text/Narrative Re-Assessment/Exam: 12/14/19 18:41 Chest x-ray reveals that he is rotated to the left making the right hilum more prominent on portable technique. There is scarring in the left lower lobe and lingula in the setting of multiple old left-sided rib fracture deformities no pneumonia is identified. There is no pleural effusion or pneumothorax. Allowing for the patient's rotation lordotic positioning and AP technique the heart size is likely normal. The mediastinal and hilar contours a re reportedly normal. Pulmonary vessels are normal. ABGs done revealed a pH of 7.46 with a PCO2 of 43.0 and a PO2 of 68. Pulse oximetry is 94.8% on 3 L/min by nasal cannula. She will be given Rocephin 2 g IV as soon as blood cultures x2 have been obtained and a urinalysis. He is on Zofran and trazodone which prolong the QT interval making Levaquin a less desirable choice. 12/14/19 19:06 White blood cell count is normal at 6.40. It is 87% neutrophils and 2% bands however on the micro. Hemoglobin is 12.9 with hematocrit of 41.2 platelet count is mildly diminished at 122,000. PT is 12.2 with an INR of 1.14 and elevated PTT at 33.2. ie. mild auto anticoagulation 12/14/19 19:33 Sodium is 139 with a potassium of 3.9. Chloride 101 with a bicarb of 31. Anion gap is 10.9 BUN was 20 with a creatinine of 0.8 and a GFR greater than 60. Glucose is 88. Lactic acid was 1.0. Calcium is 8.6. Magnesium slightly low at 1.6. Liver function normal troponin I is less than 0.017. C-reactive protein is elevated at 10.2 BNP low at 37. Total protein is 6.8 albumin fraction slightly low at 3.1. COVID-19 virus screen is negative. 12/14/19 19:[address] Castillo--artist relationship manager hospitalist even though the urinalysis is not yet back it is in process of being analyzed from a catheterized specimen. The reason for hypoxemia is not yet evident. Low-grade fever on initial examination of unclear etiology. At high risk for pneumonia due to impaired ability to ventilate lungs due to neurological disease. Also risk of aspiration due to impaired swallowing reflex. Risk of urinary tract infection due to immobility .Patient is to be admitted to the [facility] surgery floor at this time. His CODE STATUS is listed as DNR/DNI. Blood pressure at this time is come down to 101/65. O2 sats are 95% on 3 L per nasal cannula. Heart rate is 89 and sinus. 12/14/19 20:04 Urinalysis is now back. Urine is yellow in color with trace of protein trace of ketones and positive nitrate. The slide reveals 10-20 WBCs per high-power field and a negative leukocyte esterase. Urine culture has been ordered. Departure - Departure Time of Disposition: 20:05 Disposition: Admitted As Inpatient 68 Condition: Poor Clinical Impression: Progressive supranuclear ophthalmoplegia, Hypoxemia, Swallowing impairment, Acute febrile illness, Upper urinary tract infection - Discharge Information *PRESCRIPTION DRUG MONITORING PROGRAM REVIEWED*: Not Applicable *COPY OF PRESCRIPTION DRUG MONITORING REPORT IN PATIENT DINESH: Not Applicable Referrals: Nik Hughes MD [Primary Care Provider] - Forms: ED Department Discharge Sepsis Event Note (ED) - Evaluation Sepsis Screening Result: No Definite Risk - Focused Exam Vital Signs: Vital Signs Temp Pulse Resp BP Pulse Ox 12/14/19 17:28 37.2 C 83 24 H 126/64 86 L - My Orders Last 24 Hours: My Active Orders 12/14/19 17:58 EKG Documentation Completion [RC] STAT Chest 1V Frontal [CR] Stat 12/14/19 17:59 Oxygen Therapy [RC] ASDIRECTED Blood Culture x2 Reflex Set [OM.PC] Stat 12/14/19 18:00 ABG [BLOOD GAS ARTERIAL] [BG] Stat Dextrose 5%-0.9% NaCl [Dextrose 5%-Normal Saline] 1,000 ml IV ASDIRECTED 12/14/19 18:20 CULTURE BLOOD [BC] Stat 12/14/19 18:27 CULTURE BLOOD [BC] Stat 12/14/19 19:49 Admission Status [Patient Status] [ADT] Routine 12/14/19 19:52 Admission Status [Patient Status] [ADT] Routine 12/14/19 19:58 CULTURE URINE [RM] Stat - Assessment/Plan Last 24 Hours: My Active Orders 12/14/19 17:58 EKG Documentation Completion [RC] STAT Chest 1V Frontal [CR] Stat 12/14/19 17:59 Oxygen Therapy [RC] ASDIRECTED Blood Culture x2 Reflex Set [OM.PC] Stat 12/14/19 18:00 ABG [BLOOD GAS ARTERIAL] [BG] Stat Dextrose 5%-0.9% NaCl [Dextrose 5%-Normal Saline] 1,000 ml IV ASDIRECTED 12/14/19 18:20 CULTURE BLOOD [BC] Stat 12/14/19 18:27 CULTURE BLOOD [BC] Stat 12/14/19 19:49 Admission Status [Patient Status] [ADT] Routine 12/14/19 19:52 Admission Status [Patient Status] [ADT] Routine 12/14/19 19:58 CULTURE URINE [RM] Stat
[2019-12-14] MEDS ORDERED: Dextrose 5%-0.9% NaCl 1,000 ML IV SCH (18:00)
[2019-12-14] MEDS ORDERED: Acetaminophen 325 MG Tab PO ONE (18:25)
[2019-12-14] MEDS ORDERED: Acetaminophen 325 MG/10.15 ML ML PO ONE (18:39)
[2019-12-14] MEDS ORDERED: Acetaminophen Soln 650 MG/20.3 ML UD Cup ONE (18:39)
[2019-12-14] MEDS: Acetaminophen Soln 650 MG/20.3 ML UD Cup PO ONE ×3 (18:40→18:45)
[2019-12-14] MEDS ORDERED: cefTRIAXone 2 GM in Sodium Chloride 0.9% 100 ML IV ONE (18:44)
[2019-12-14] MEDS ORDERED: Ondansetron 4 MG/2 ML SDV IV PRN (20:30)
[2019-12-14] MEDS ORDERED: Sodium Chloride 0.9% 1,000 ML IV SCH (20:30)
[2019-12-14] MEDS ORDERED: Albuterol/Ipratropium 3.0-0.5 MG/3 ML Neb Soln NEB PRN (20:30)
[2019-12-14] MEDS ORDERED: Albuterol 0.083% 2.5 MG/3 ML Neb Soln NEB PRN (20:30)
[2019-12-14] MEDS ORDERED: Ondansetron 4 MG Tab.DIS PO PRN (20:35)
[2019-12-14] MEDS ORDERED: Celecoxib 100 MG Cap PO PRN (20:35)
[2019-12-14] MEDS ORDERED: Benzonatate 100 MG Cap PO PRN (20:35)
[2019-12-14] MEDS ORDERED: Lactulose Soln 10 GM/15 ML 30 ML UD Cup PO PRN (20:59)
[2019-12-14] MEDS ORDERED: Trolamine Salicylate/Aloe Vera 10% Crm 85 GM Tube TOP PRN (21:06)
[2019-12-14] MEDS: Meropenem 1 GM SDV IVPUSH SCH (21:37)
[2019-12-14] MEDS: Cyclobenzaprine 10 MG Tab PO PRN (21:40)
[2019-12-14] MEDS: traZODone 50 MG Tab PO SCH (21:41)
[2019-12-14] MEDS: Terazosin 5 MG Cap PO SCH (21:41)
[2019-12-14] MEDS: Baclofen 10 MG Tab PO SCH (21:41)
[2019-12-14] MEDS: busPIRone 15 MG Tab PO SCH (21:42)
[2019-12-14] MEDS: Citalopram 20 MG Tab PO SCH (21:43)
[2019-12-14] MEDS: Carbidopa/Levodopa 25-100 MG Tab PO SCH (21:43)
[2019-12-14] MEDS: Gabapentin 100 MG Cap PO SCH (21:43)
[2019-12-14] MEDS: LORazepam 1 MG Tab PO SCH (21:44)
[2019-12-14] MEDS: Magnesium Oxide 400 MG Tab PO SCH (21:44)
[2019-12-14] MEDS: Simvastatin 20 MG Tab PO SCH (21:45)
--- NOTE | 2019-12-14 21:45 | PCM.HP.2 ---
H&P History of Present Illness - General Date of Service: 12/14/19 Admit Problem/Dx: Admission Diagnosis/Problem Admission Diagnosis/Problem Hypoxia - History of Present Illness Initial Comments - Free Text/Narative: 64-year-old male with progressive supranuclear ophthalmoplegia, a progressive neurological disease, presented to the emergency department with fever, increasing weakness, and hypoxemia. Patient was placed on 3 L/min nasal cannula by EMS and brought to the emergency department where his oxygen saturations were in the mid 90s. Patient has been hospitalized 2 times previously in the last 3 months most recently last month, October 19, with sepsis felt due to pneumonia. Patient was on multiple antibiotics during that admission and had sputum positive for MRSA. On presentation today he denies any cough. His COVID-19 test have been negative for the last several weeks including today. In the emergency department he had a chest x-ray, UA, blood cultures x2, and septic work-up. Chest x-ray showed some scarring in the left lower lobe and lingula, likely posttraumatic in the setting of multiple old left rib fracture deformities. No superimposed pneumonia identified. UA was positive for nitrites and pyuria. White count was normal at 6.4 with left shift of 87% neutrophils and 2% bands. Mildly elevated PT at 12.2 and PTT at 33.2. Renal function is preserved with estimated GFR of greater than 60. His magnesium was 1.6. C-reactive protein was elevated at 10.2 and lactic acid was 1.0. proBNP negative at 37. It was felt patient was significantly ill enough with new onset UTI, hypoxemia, and recent history of sepsis and broken ribs and pneumonia to be hospitalized for aggressive IV antibiotics. Left Arm Pain Score (Numeric/FACES): 6 Left Neck Pain Score (Numeric/FACES): 6 left shoulder Pain Score (Numeric/FACES): 8 - Related Data Allergies/Adverse Reactions: Allergies Allergy/AdvReac Type Severity Reaction Status Date / Time No Known Allergies Allergy Verified 12/15/19 05:50 Home Medications: Home Meds Acetaminophen [Tylenol Arthritis Pain] 650 mg PO Q6H PRN #120 dose 10/22/19 [Rx] Benzonatate [Tessalon Perle] 100 mg PO TID PRN #30 capsule 10/22/19 [Rx] Carbidopa/Levodopa [Carbidopa-Levodopa 25-100] 1 tab PO QID #120 tablet 10/22/19 [Rx] Celecoxib [CeleBREX] 200 mg PO DAILY PRN #30 cap 10/22/19 [Rx] Cyclobenzaprine [Flexeril] 5 mg PO TID PRN #90 10/22/19 [Rx] Escitalopram Oxalate [Lexapro] 20 mg PO BEDTIME #30 dose 10/22/19 [Rx] Gabapentin [Neurontin] 200 mg PO TID #120 dose 10/22/19 [Rx] HYDROmorphone [Dilaudid] 2 mg PO Q6H PRN #40 dose 10/22/19 [Rx] Lactulose [Kristalose] 20 gm PO DAILY PRN #120 packet 10/22/19 [Rx] Losartan [Cozaar] 50 mg PO DAILY #30 dose 10/22/19 [Rx] Magnesium Oxide [Magnesium] 400 mg PO BID #60 dose 10/22/19 [Rx] Ondansetron [Zofran ODT] 4 mg PO Q6H PRN #20 tab.dis 10/22/19 [Rx] Simvastatin 20 mg PO BEDTIME #30 dose 10/22/19 [Rx] Terazosin [Hytrin] 5 mg PO BID #60 cap 10/22/19 [Rx] busPIRone [Buspar] 15 mg PO BID #60 tablet 10/22/19 [Rx] fentaNYL [Duragesic] 75 mcg TD Q72H #10 patch 10/22/19 [Rx] guaiFENesin [Fenesin IR] 400 mg PO Q4H PRN #60 tablet 10/22/19 [Rx] traZODone HCl [Trazodone HCl] 100 mg PO BEDTIME #30 dose 10/22/19 [Rx] Baclofen 10 mg PO QID 12/14/19 [History] LORazepam [Ativan] 0.5 mg PO BID 12/14/19 [History] LORazepam [Ativan] 1 mg PO BID 12/14/19 [History] Sennosides/Docusate Sodium [Senna Plus 8.6-50 mg Tablet] 1 tab PO DAILY 12/14/19 [History] Sennosides/Docusate Sodium [Senna Plus Tablet] 1 each PO TID PRN 12/14/19 [History] Trolamine Salicylate/Aloe Vera [Aspercreme 10% Cream] 2 gm TP Q4H PRN 12/14/19 [History] hydroCHLOROthiazide [Hydrochlorothiazide] 12.5 mg PO DAILY 12/14/19 [History] polyethylene glycoL 3350 [MiraLAX] 17 gram PO DAILY 12/14/19 [History] Past Medical History HEENT History: Reports: Impaired Vision Other HEENT History: Wears glasses Cardiovascular History: Reports: High Cholesterol, Hypertension Respiratory History: Reports: Intubation, Previous Gastrointestinal History: Reports: GERD, Hiatal Hernia Genitourinary History: Reports: BPH, Retention, Urinary Musculoskeletal History: Reports: Arthritis, Neck Pain, Chronic, Osteoarthritis Other Musculoskeletal History: fall; fractured ribs; muscle spasms Neurological History: Reports: Parkinson's, Speech Problems, Vertigo Other Neuro History: 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 Psychiatric History: Reports: Anxiety - Past Surgical History Cardiovascular Surgical History: Reports: None - History Comment History Comment: Patient has chronic severe generalized pain. He is currently on Dilaudid 2 mg 3 times daily and fentanyl patch. 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 Social & Family History - Family History Family Medical History: Noncontributory - Tobacco Use Tobacco Use Status *Q: Former Tobacco User Used Tobacco, but Quit: Yes Month/Year Tobacco Last Used: 30 yrs - Caffeine Use Caffeine Use: Reports: Coffee, Soda - Living Situation & Occupation Living situation: Reports: Single, Alone, Extended Care Facility ([facility] Occupation: Disabled H&P Review of Systems - Review of Systems: Review Of Systems: Comprehensive ROS is negative, except as noted in HPI. Exam - Exam Exam: See Below - Vital Signs Vital Signs: Last Vital Signs Temp 98.9 F 12/14/19 17:28 Pulse 83 12/14/19 17:28 Resp 24 H 12/14/19 17:28 BP 115/62 12/14/19 21:41 Pulse Ox 86 L 12/14/19 17:28 Weight: 70.76 kg - Exam Quality Assessment: Supplemental Oxygen, Other (Patient is immobile, lying on his left side, but able to answer questions appropriately. He is able to slowly take a cup in his right hand and drink from it without assistance. He denies any aspiration or significant choking on food. He has recently had a swallow study.) General: Alert, Oriented, 4 HEENT: Conjunctiva Clear, Hearing Intact, Mucosa Moist & [place], Other (Limited range of motion of the neck) Neck: Trachea Midline. No: Full Range of Motion (Limited) Lungs: Normal Respiratory Effort, Decreased Breath Sounds. No: Crackles, Rales, Rhonchi Cardiovascular: Regular Rate, Regular Rhythm GI/Abdominal Exam: Normal Bowel Sounds, Soft, Non-Tender, No Organomegaly, No Distention, No Abnormal Bruit, No Mass Back Exam: Decreased Range of Motion Extremities: Non-Tender, Limited Range of Motion. No: Normal Range of Motion Peripheral Pulses: 2+: Posterior Tibial (L), Posterior Tibial (R), Dorsalis Pedis (L), Dorsalis Pedis (R) Skin: Warm, Dry, Intact Neurological: Other (Slow speech and difficulty with speech). No: Normal Speech Neuro Extensive - Mental Status: Alert, Oriented x3, Normal Mood/Affect, Normal Cognition, Memory Intact Psychiatric: Alert, Normal Affect, Normal Mood - Patient Data Lab Results Last 24 hrs: Laboratory Results - last 24 hr 12/14/19 12/14/19 12/14/19 Range/Units 18:20 18:20 18:20 WBC 6.40 (4.23-9.07) K/mm3 RBC 4.73 (4.63-6.08) M/mm3 Hgb 12.9 L (13.7-17.5) gm/dl Hct 41.2 (40.1-51.0) % MCV 87.1 (79.0-92.2) fl MCH 27.3 (25.7-32.2) pg MCHC 31.3 L (32.2-35.5) g/dl RDW Std Deviation 42.4 (35.1-43.9) fL Plt Count 122 L (163-337) K/mm3 MPV 11.5 (9.4-12.3) fl Neutrophils % (Manual) 87 H (40-60) % Band Neutrophils % 2 (0-10) % Lymphocytes % (Manual) 8 L (20-40) % Atypical Lymphs % 0 % Monocytes % (Manual) 3 (2-10) % Eosinophils % (Manual) 0 L (0.8-7.0) % Basophils % (Manual) 0 L (0.2-1.2) Platelet Estimate Decreased Plt Morphology Comment See note Hypochromasia 1+ slight RBC Morph Comment Not Reportable PT 12.2 H (9.7-12.0) SECONDS INR 1.14 APTT 33.2 H (21.7-31.4) SECONDS Sodium 139 (136-145) mEq/L Potassium 3.9 (3.5-5.1) mEq/L Chloride 101 (98-107) mEq/L Carbon Dioxide 31 (21-32) mEq/L Anion Gap 10.9 (5-15) BUN 20 H (7-18) mg/dL Creatinine 0.8 (0.7-1.3) mg/dL Est Cr Clr Drug Dosing 95.82 mL/min Estimated GFR (MDRD) > 60 (>60) mL/min BUN/Creatinine Ratio 25.0 H (14-18) Glucose 88 (80-115) mg/dL Lactic Acid (0.4-2.0) mmol/L Calcium 8.6 (8.5-10.1) mg/dL Magnesium 1.6 L (1.8-2.4) mg/dl Total Bilirubin 0.8 (0.2-1.0) mg/dL AST 11 L (15-37) U/L ALT 12 L (16-63) U/L Alkaline Phosphatase 82 (46-116) U/L Troponin I < 0.017 (0.00-0.056) ng/mL C-Reactive Protein 10.2 H* (<1.0) mg/dL NT-Pro-B Natriuret Pep (0-125) pg/mL Total Protein 6.8 (6.4-8.2) g/dl Albumin 3.1 L (3.4-5.0) g/dl Globulin 3.7 gm/dL Albumin/Globulin Ratio 0.8 L (1-2) Urine Color (Yellow) Urine Appearance (Clear) Urine pH (5.0-8.0) Ur Specific [place] (1.005-1.030) Urine Protein (Negative) Urine Glucose (UA) (Negative) Urine Ketones (Negative) Urine Occult Blood (Negative) Urine Nitrite (Negative) Urine Bilirubin (Negative) Urine Urobilinogen (0.2-1.0) Ur Leukocyte Esterase (Negative) Urine RBC (0-5) /hpf Urine WBC (0-5) /hpf Ur Squamous Epith Cells (0-5) /hpf Urine Bacteria (FEW) /hpf Urine Mucus (FEW) /hpf SARS-CoV-2 RNA (CAMILLA) (NEGATIVE) 12/14/19 12/14/19 12/14/19 Range/Units 18:20 18:20 18:30 WBC (4.23-9.07) K/mm3 RBC (4.63-6.08) M/mm3 Hgb (13.7-17.5) gm/dl Hct (40.1-51.0) % MCV (79.0-92.2) fl MCH (25.7-32.2) pg MCHC (32.2-35.5) g/dl RDW Std Deviation (35.1-43.9) fL Plt Count (163-337) K/mm3 MPV (9.4-12.3) fl Neutrophils % (Manual) (40-60) % Band Neutrophils % (0-10) % Lymphocytes % (Manual) (20-40) % Atypical Lymphs % % Monocytes % (Manual) (2-10) % Eosinophils % (Manual) (0.8-7.0) % Basophils % (Manual) (0.2-1.2) Platelet Estimate Plt Morphology Comment Hypochromasia RBC Morph Comment PT (9.7-12.0) SECONDS INR APTT (21.7-31.4) SECONDS Sodium (136-145) mEq/L Potassium (3.5-5.1) mEq/L Chloride (98-107) mEq/L Carbon Dioxide (21-32) mEq/L Anion Gap (5-15) BUN (7-18) mg/dL Creatinine (0.7-1.3) mg/dL Est Cr Clr Drug Dosing mL/min Estimated GFR (MDRD) (>60) mL/min BUN/Creatinine Ratio (14-18) Glucose (80-115) mg/dL Lactic Acid 1.0 (0.4-2.0) mmol/L Calcium (8.5-10.1) mg/dL Magnesium (1.8-2.4) mg/dl Total Bilirubin (0.2-1.0) mg/dL AST (15-37) U/L ALT (16-63) U/L Alkaline Phosphatase (46-116) U/L Troponin I (0.00-0.056) ng/mL C-Reactive Protein (<1.0) mg/dL NT-Pro-B Natriuret Pep 37 (0-125) pg/mL Total Protein (6.4-8.2) g/dl Albumin (3.4-5.0) g/dl Globulin gm/dL Albumin/Globulin Ratio (1-2) Urine Color (Yellow) Urine Appearance (Clear) Urine pH (5.0-8.0) Ur Specific [place] (1.005-1.030) Urine Protein (Negative) Urine Glucose (UA) (Negative) Urine Ketones (Negative) Urine Occult Blood (Negative) Urine Nitrite (Negative) Urine Bilirubin (Negative) Urine Urobilinogen (0.2-1.0) Ur Leukocyte Esterase (Negative) Urine RBC (0-5) /hpf Urine WBC (0-5) /hpf Ur Squamous Epith Cells (0-5) /hpf Urine Bacteria (FEW) /hpf Urine Mucus (FEW) /hpf SARS-CoV-2 RNA ([facility]) Negative (NEGATIVE) 12/14/19 Range/Units 19:15 WBC (4.23-9.07) K/mm3 RBC (4.63-6.08) M/mm3 Hgb (13.7-17.5) gm/dl Hct (40.1-51.0) % MCV (79.0-92.2) fl MCH (25.7-32.2) pg MCHC (32.2-35.5) g/dl RDW Std Deviation (35.1-43.9) fL Plt Count (163-337) K/mm3 MPV (9.4-12.3) fl Neutrophils % (Manual) (40-60) % Band Neutrophils % (0-10) % Lymphocytes % (Manual) (20-40) % Atypical Lymphs % % Monocytes % (Manual) (2-10) % Eosinophils % (Manual) (0.8-7.0) % Basophils % (Manual) (0.2-1.2) Platelet Estimate Plt Morphology Comment Hypochromasia RBC Morph Comment PT (9.7-12.0) SECONDS INR APTT (21.7-31.4) SECONDS Sodium (136-145) mEq/L Potassium (3.5-5.1) mEq/L Chloride (98-107) mEq/L Carbon Dioxide (21-32) mEq/L Anion Gap (5-15) BUN (7-18) mg/dL Creatinine (0.7-1.3) mg/dL Est Cr Clr Drug Dosing mL/min Estimated GFR (MDRD) (>60) mL/min BUN/Creatinine Ratio (14-18) Glucose (80-115) mg/dL Lactic Acid (0.4-2.0) mmol/L Calcium (8.5-10.1) mg/dL Magnesium (1.8-2.4) mg/dl Total Bilirubin (0.2-1.0) mg/dL AST (15-37) U/L ALT (16-63) U/L Alkaline Phosphatase (46-116) U/L Troponin I (0.00-0.056) ng/mL C-Reactive Protein (<1.0) mg/dL NT-Pro-B Natriuret Pep (0-125) pg/mL Total Protein (6.4-8.2) g/dl Albumin (3.4-5.0) g/dl Globulin gm/dL Albumin/Globulin Ratio (1-2) Urine Color Yellow (Yellow) Urine Appearance Clear (Clear) Urine pH 6.0 (5.0-8.0) Ur Specific [place] 1.025 (1.005-1.030) Urine Protein Trace H (Negative) Urine Glucose (UA) Negative (Negative) Urine Ketones Trace H (Negative) Urine Occult Blood Negative (Negative) Urine Nitrite Positive H (Negative) Urine Bilirubin Negative (Negative) Urine Urobilinogen 0.2 (0.2-1.0) Ur Leukocyte Esterase Negative (Negative) Urine RBC Not seen (0-5) /hpf Urine WBC 10-20 H (0-5) /hpf Ur Squamous Epith Cells 0-5 (0-5) /hpf Urine Bacteria Few (FEW) /hpf Urine Mucus Not seen (FEW) /hpf SARS-CoV-2 RNA ([facility]ILLA) (NEGATIVE) Result Diagrams: 12/15/19 04:36 12/15/19 04:36 #1 Interpretation EKG Date: 12/14/19 Time: 18:30 Rhythm: NSR Rate (Beats/Min): 87 [place]: Normal P-Wave: Present QRS: Normal ST-T: Normal QT: Normal Sepsis Event Note - Evaluation Sepsis Screening Result: No Definite Risk - Focused Exam Vital Signs: Vital Signs Temp Pulse Resp BP BP Pulse Ox 12/14/19 21:41 115/62 12/14/19 17:28 98.9 F 83 24 H 126/64 86 L Problem List Initiated/Reviewed/Updated: Yes Orders Last 24hrs: Active Orders 24 hr Category Date Time Status Admission Status [Patient Status] [ADT] Routine ADT 12/14/19 19:49 Active Admission Status [Patient Status] [ADT] Routine ADT 12/14/19 19:52 Active Bedrest Bathroom Privileges [RC] ASDIRECTED Care 12/14/19 20:30 Active EKG Documentation Completion [RC] STAT Care 12/14/19 17:58 Active Oxygen Therapy [RC] ASDIRECTED Care 12/14/19 17:59 Active RT Aerosol Therapy [RC] ASDIRECTED Care 12/14/19 20:35 Active VTE/DVT Education [RC] PER UNIT ROUTINE Care 12/14/19 20:30 Active Vital Signs [RC] Q4H Care 12/14/19 20:30 Active Respiratory Care Assess and Treatment [CONS] Routine Cons 12/14/19 20:30 Active Regular Diet [DIET] Diet 12/15/19 Breakfast Active Chest 1V Frontal [CR] Stat Exams 12/14/19 17:58 Taken ABG [BLOOD GAS ARTERIAL] [BG] Stat Lab 12/14/19 18:00 Ordered C-REACTIVE PROTEIN [CHEM] AM Lab 12/15/19 05:11 Ordered CBC WITH AUTO DIFF [HEME] AM Lab 12/15/19 05:11 Ordered COMPREHENSIVE METABOLIC PN,CMP [CHEM] AM Lab 12/15/19 05:11 Ordered CULTURE BLOOD [BC] Stat Lab 12/14/19 18:20 Received CULTURE BLOOD [BC] Stat Lab 12/14/19 18:27 Received CULTURE URINE [RM] Stat Lab 12/14/19 19:15 Received VANCOMYCIN TROUGH [CHEM] Timed Lab 12/16/19 09:30 Ordered Acetaminophen [TylenoL] Med 12/14/19 20:30 Active 650 mg PO Q4H PRN Albuterol [Proventil Neb Soln] Med 12/14/19 20:30 Active 2.5 mg NEB Q2H PRN Albuterol/Ipratropium [DuoNeb 3.0-0.5 MG/3 ML] Med 12/14/19 20:30 Active 3 ml NEB Q4H PRN Baclofen [Lioresal] Med 12/14/19 21:00 Active 10 mg PO QID Benzonatate [Tessalon Perles] Med 12/14/19 20:35 Active 100 mg PO TID PRN Carbidopa/Levodopa [Sinemet 25-100 mg] Med 12/14/19 21:00 Active 1 tab PO QID Celecoxib [CeleBREX] Med 12/14/19 20:35 Active 200 mg PO DAILY PRN Citalopram [Celexa] Med 12/14/19 21:00 Active 40 mg PO BEDTIME Cyclobenzaprine [Flexeril] Med 12/14/19 20:57 Active 5 mg PO TID PRN Dextrose 5%-0.9% NaCl [Dextrose 5%-Normal Saline] 1,000 Med 12/14/19 18:00 Active ml IV ASDIRECTED Docusate Sodium/Sennosides [Senna Plus] Med 12/15/19 09:00 Active 1 tab PO DAILY Docusate Sodium/Sennosides [Senna Plus] Med 12/14/19 20:35 Active 1 tab PO TID PRN Enoxaparin [Lovenox] Med 12/15/19 09:00 Active 40 mg SUBCUT DAILY Gabapentin [Neurontin] Med 12/14/19 21:00 Active 200 mg PO TID HYDROmorphone [Dilaudid] Med 12/14/19 20:35 Active 2 mg PO Q6H PRN LORazepam [Ativan] Med 12/15/19 12:00 Active 0.5 mg PO BID@1200,1600 LORazepam [Ativan] Med 12/14/19 21:00 Active 1 mg PO BID Lactulose [Cephulac] Med 12/14/19 20:59 Active 20 gm PO DAILY PRN Losartan [Cozaar] Med 12/15/19 09:00 Active 50 mg PO DAILY Magnesium Oxide Med 12/14/19 21:00 Active 400 mg PO BID Meropenem [Merrem] Med 12/14/19 21:00 Active 1 gm IVPUSH Q8H Ondansetron [Zofran ODT] Med 12/14/19 20:35 Active 4 mg PO Q6H PRN Ondansetron [Zofran] Med 12/14/19 20:30 Active 4 mg IV Q4H PRN Pharmacy to Dose - Vancomycin Med 12/14/19 20:45 Pending 1 dose .XX ASDIRECTED Remove Patch Med 12/15/19 20:00 Active 1 ea TRDERM Q72H Simvastatin [Zocor] Med 12/14/19 21:00 Active 20 mg PO BEDTIME Sodium Chloride 0.9% [Normal Saline] 1,000 ml Med 12/14/19 20:30 Active IV ASDIRECTED Terazosin [Hytrin] Med 12/14/19 21:00 Active 5 mg PO BID Trolamine Salicylate/Aloe Vera [Aspercreme 10%] Med 12/14/19 21:06 Active 2 gm TOP Q4H PRN Vancomycin [Vancocin] 1 gm Med 12/14/19 22:00 Active Sodium Chloride 0.9% [Normal Saline (AdvBag)] 250 ml IV Q12H busPIRone [Buspar] Med 12/14/19 21:00 Active 15 mg PO BID fentaNYL [Duragesic] Med 12/15/19 20:00 Active 75 mcg TRDERM Q72H polyethylene glycoL 3350 [MiraLAX] Med 12/15/19 09:00 Active 17 gm PO DAILY traZODone Med 12/14/19 21:00 Active 100 mg PO BEDTIME Blood Culture x2 Reflex Set [OM.PC] Stat Oth 12/14/19 17:59 Ordered Resuscitation Status Routine Resus Stat 12/14/19 20:30 Ordered Medication Orders Acetaminophen (Tylenol) 650 mg PO Q4H PRN PRN Reason: Pain (Mild 1-3)/fever Albuterol (Proventil Neb Soln) 2.5 mg NEB Q2H PRN PRN Reason: Shortness Of Breath/wheezing Albuterol/Ipratropium (Duoneb 3.0-0.5 Mg/3 Ml) 3 ml NEB Q4H PRN PRN Reason: Shortness Of Breath/wheezing Baclofen (Lioresal) 10 mg PO QID [facility] Last Admin: 12/14/19 21:41 Dose: 10 mg Documented by: MANNROB Benzonatate (Tessalon Perles) 100 mg PO TID PRN PRN Reason: Cough Buspirone HCl (Buspar) 15 mg PO BID [facility] Last Admin: 12/14/19 21:42 Dose: 15 mg Documented by: SIENNA Carbidopa/Levodopa (Sinemet 25-100 Mg) 1 tab PO QID [facility] Last Admin: 12/14/19 21:43 Dose: 1 tab Documented by: SIENNA Celecoxib (Celebrex) 200 mg PO DAILY PRN PRN Reason: Pain (moderate 4-6) Citalopram Hydrobromide (Celexa) 40 mg PO BEDTIME [facility] Last Admin: 12/14/19 21:43 Dose: 40 mg Documented by: SIENNA Cyclobenzaprine HCl (Flexeril) 5 mg PO TID PRN PRN Reason: Spasms Last Admin: 12/14/19 21:40 Dose: 5 mg Documented by: SIENNA Enoxaparin Sodium (Lovenox) 40 mg SUBCUT DAILY [facility] Fentanyl (Duragesic) 75 mcg TRDERM Q72H JASPER Gabapentin (Neurontin) 200 mg PO TID [facility] Last Admin: 12/14/19 21:43 Dose: 200 mg Documented by: SIENNA Hydromorphone HCl (Dilaudid) 2 mg PO Q6H PRN PRN Reason: Pain (severe 7-10) Dextrose/Sodium Chloride (Dextrose 5%-Normal Saline) 1,000 mls @ 150 mls/hr IV ASDIRECTED [facility] Last Admin: 12/14/19 18:38 Dose: 150 mls/hr Documented by: DWAYNE Sodium Chloride (Normal Saline) 1,000 mls @ 100 mls/hr IV ASDIRECTED [facility] Stop: 12/15/19 06:29 Last Admin: 12/14/19 21:35 Dose: 100 mls/hr Documented by: SIENNA Vancomycin HCl 1 gm/ Sodium (Chloride) 250 mls @ 250 mls/hr IV Q12H [facility] Lactulose (Cephulac) 20 gm PO DAILY PRN PRN Reason: Constipation Lorazepam (Ativan) 0.5 mg PO BID@1200,1600 JASPER Lorazepam (Ativan) 1 mg PO BID [facility] Last Admin: 12/14/19 21:44 Dose: 1 mg Documented by: SIENNA Losartan Potassium (Cozaar) 50 mg PO DAILY [facility] Magnesium Oxide (Magnesium Oxide) 400 mg PO BID [facility] Last Admin: 12/14/19 21:44 Dose: 400 mg Documented by: SIENNA Meropenem (Merrem) 1 gm IVPUSH Q8H [facility] Last Admin: 12/14/19 21:37 Dose: 1 gm Documented by: SIENNA Miscellaneous Information (Remove Patch) 1 ea TRDERM Q72H [facility] Ondansetron HCl (Zofran) 4 mg IV Q4H PRN PRN Reason: Nausea/Vomiting Ondansetron HCl (Zofran Odt) 4 mg PO Q6H PRN PRN Reason: nausea, able to take PO Polyethylene Glycol (Miralax) 17 gm PO DAILY [facility] Senna/Docusate Sodium (Senna Plus) 1 tab PO DAILY [facility] Last Admin: 12/14/19 21:42 Dose: 1 tab Documented by: SIENNA Senna/Docusate Sodium (Senna Plus) 1 tab PO TID PRN PRN Reason: Constipation Simvastatin (Zocor) 20 mg PO BEDTIME [facility] Last Admin: 12/14/19 21:45 Dose: 20 mg Documented by: SIENNA Terazosin HCl (Hytrin) 5 mg PO BID [facility] Last Admin: 12/14/19 21:41 Dose: 5 mg Documented by: SIENNA Trazodone HCl (Trazodone) 100 mg PO BEDTIME [facility] Last Admin: 12/14/19 21:41 Dose: 100 mg Documented by: SIENNA Trolamine Salicylate (Aspercreme 10%) 2 gm TOP Q4H PRN PRN Reason: Pain (mild 1-3) Vancomycin HCl (Pharmacy To Dose - Vancomycin) 1 dose .XX ASDIRECTED [facility] Assessment/Plan Comment:: Assessment * 64-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 He has old scarring on his chest x- ray without any acute findings. He did have a UTI and is nonambulatory. He also takes narcotics with benzodiazepines which could be contributing to some decreased respiratory drive. These will be very difficult to decrease and there has not been any recent increase in dose. Patient be admitted and started on antibiotic therapy, follow his oxygen saturations and titrate his FiO2 to keep his SPO2 greater than 92%. It is possible that the patient may need chronic Plan * Admit to medical floor for IV antibiotics and respiratory support. * Start meropenem and vancomycin secondary to his complicated UTI and history of MRSA. * Culture urine and blood * Follow CBC, CMP, mag, C-reactive protein * Continue home meds * FiO2 to keep SPO2 greater than 92% * Consider decreasing lorazepam if possible. * CODE STATUS: DNR/DNI * VTE prophylaxis with Lovenox * Length of stay likely 2 to 3 days. Patient may need to go home, [facility], on home O2. - Mortality Measure Prognosis:: Good
[2019-12-15] MEDS: Meropenem 1 GM SDV IVPUSH SCH (07:37)
[2019-12-15] MEDS ORDERED: Trolamine Salicylate/Aloe Vera 10% Crm 85 GM Tube TOP PRN (07:45)
[2019-12-15] MEDS: Polyethylene Glycol 3350 Powder 17 GM Packet PO SCH (08:36)
[2019-12-15] MEDS: Enoxaparin 40 MG/0.4 ML Syringe SUBCUT SCH (08:36)
[2019-12-15] MEDS: Meropenem Premix 500 MG in Premix Bag 1 BAG IV SCH ×3 (08:37→19:45)
[2019-12-15] MEDS: Losartan 25 MG Tab PO SCH (08:44)
[2019-12-15] MEDS: Carbidopa/Levodopa 25-100 MG Tab PO SCH ×4 (08:44→20:25)
[2019-12-15] MEDS: Magnesium Oxide 400 MG Tab PO SCH ×2 (08:44→20:26)
[2019-12-15] MEDS: Gabapentin 100 MG Cap PO SCH ×3 (08:44→20:22)
[2019-12-15] MEDS: Terazosin 5 MG Cap PO SCH ×2 (08:44→20:25)
[2019-12-15] MEDS: Baclofen 10 MG Tab PO SCH ×4 (08:44→20:25)
[2019-12-15] MEDS: LORazepam 1 MG Tab PO SCH ×2 (08:45→20:22)
[2019-12-15] MEDS: busPIRone 15 MG Tab PO SCH ×2 (08:45→20:24)
[2019-12-15] MEDS: HYDROmorphone 2 MG Tab PO PRN ×2 (08:58→15:18)
[2019-12-15] MEDS: LORazepam 0.5 MG Tab PO SCH ×2 (12:28→16:00)
--- NOTE | 2019-12-15 12:42 | PCM.PN ---
- General Info Date of Service: 12/15/19 Admission Dx/Problem (Free Text): Admission Diagnosis/Problem Admission Diagnosis/Problem Hypoxia Subjective Update: Patient states he feels well. He has no acute complaints. He continues on 2 to 3 L of O2 via nasal cannula. Functional Status: Reports: Pain Controlled - Review of Systems General: Reports: No Symptoms HEENT: Reports: No Symptoms Pulmonary: Reports: No Symptoms Cardiovascular: Reports: No Symptoms Gastrointestinal: Reports: No Symptoms Musculoskeletal: Reports: No Symptoms Psychiatric: Reports: No Symptoms - Patient Data Vitals - Most Recent: Last Vital Signs Temp 98.6 F 12/15/19 11:41 Pulse 69 12/15/19 11:41 Resp 20 12/15/19 11:41 BP 113/74 12/15/19 11:41 Pulse Ox 95 12/15/19 11:41 Weight - Most Recent: 70.76 kg I&O - Last 24 Hours: Intake & Output 12/14/19 12/15/19 12/15/19 22:59 06:59 14:59 Intake Total 1142 360 Output Total 250 Balance -250 1142 360 Lab Results Last 24 Hours: Laboratory Results - last 24 hr 12/14/19 12/14/19 12/14/19 Range/Units 18:20 18:20 18:20 WBC 6.40 (4.23-9.07) K/mm3 RBC 4.73 (4.63-6.08) M/mm3 Hgb 12.9 L (13.7-17.5) gm/dl Hct 41.2 (40.1-51.0) % MCV 87.1 (79.0-92.2) fl MCH 27.3 (25.7-32.2) pg MCHC 31.3 L (32.2-35.5) g/dl RDW Std Deviation 42.4 (35.1-43.9) fL Plt Count 122 L (163-337) K/mm3 MPV 11.5 (9.4-12.3) fl Neut % (Auto) (34.0-67.9) % Lymph % (Auto) (21.8-53.1) % [place] % (Auto) (5.3-12.2) % Eos % (Auto) (0.8-7.0) Baso % (Auto) (0.1-1.2) % Neut # (Auto) (1.78-5.38) K/mm3 Lymph # (Auto) (1.32-3.57) K/mm3 [place] # (Auto) (0.30-0.82) K/mm3 Eos # (Auto) (0.04-0.54) K/mm3 Baso # (Auto) (0.01-0.08) K/mm3 Neutrophils % (Manual) 87 H (40-60) % Band Neutrophils % 2 (0-10) % Lymphocytes % (Manual) 8 L (20-40) % Atypical Lymphs % 0 % Monocytes % (Manual) 3 (2-10) % Eosinophils % (Manual) 0 L (0.8-7.0) % Basophils % (Manual) 0 L (0.2-1.2) Platelet Estimate Decreased Plt Morphology Comment See note Hypochromasia 1+ slight RBC Morph Comment Not Reportable PT 12.2 H (9.7-12.0) SECONDS INR 1.14 APTT 33.2 H (21.7-31.4) SECONDS ABG pH (7.35-7.45) ABG pCO2 (35.0-45.0) mmHg ABG pO2 (80.0-100.0) mmHg ABG HCO3 (22.0-26.0) meq/L ABG O2 Saturation (96.0-97.0) % ABG Base Excess (-2-2.0) A-a Gradient mmHg O2 Delivery Device Oxygen Flow Rate FiO2 (21.00-100.00) % Sodium 139 (136-145) mEq/L Potassium 3.9 (3.5-5.1) mEq/L Chloride 101 (98-107) mEq/L Carbon Dioxide 31 (21-32) mEq/L Anion Gap 10.9 (5-15) BUN 20 H (7-18) mg/dL Creatinine 0.8 (0.7-1.3) mg/dL Est Cr Clr Drug Dosing 95.82 mL/min Estimated GFR (MDRD) > 60 (>60) mL/min BUN/Creatinine Ratio 25.0 H (14-18) Glucose 88 (80-115) mg/dL Lactic Acid (0.4-2.0) mmol/L Calcium 8.6 (8.5-10.1) mg/dL Magnesium 1.6 L (1.8-2.4) mg/dl Total Bilirubin 0.8 (0.2-1.0) mg/dL AST 11 L (15-37) U/L ALT 12 L (16-63) U/L Alkaline Phosphatase 82 (46-116) U/L Troponin I < 0.017 (0.00-0.056) ng/mL C-Reactive Protein 10.2 H* (<1.0) mg/dL NT-Pro-B Natriuret Pep (0-125) pg/mL Total Protein 6.8 (6.4-8.2) g/dl Albumin 3.1 L (3.4-5.0) g/dl Globulin 3.7 gm/dL Albumin/Globulin Ratio 0.8 L (1-2) Urine Color (Yellow) Urine Appearance (Clear) Urine pH (5.0-8.0) Ur Specific [place] (1.005-1.030) Urine Protein (Negative) Urine Glucose (UA) (Negative) Urine Ketones (Negative) Urine Occult Blood (Negative) Urine Nitrite (Negative) Urine Bilirubin (Negative) Urine Urobilinogen (0.2-1.0) Ur Leukocyte Esterase (Negative) Urine RBC (0-5) /hpf Urine WBC (0-5) /hpf Ur Squamous Epith Cells (0-5) /hpf Urine Bacteria (FEW) /hpf Urine Mucus (FEW) /hpf SARS-CoV-2 RNA ([facility]) (NEGATIVE) MRSA (PCR) 12/14/19 12/14/19 12/14/19 Range/Units 18:20 18:20 18:20 WBC (4.23-9.07) K/mm3 RBC (4.63-6.08) M/mm3 Hgb (13.7-17.5) gm/dl Hct (40.1-51.0) % MCV (79.0-92.2) fl MCH (25.7-32.2) pg MCHC (32.2-35.5) g/dl RDW Std Deviation (35.1-43.9) fL Plt Count (163-337) K/mm3 MPV (9.4-12.3) fl Neut % (Auto) (34.0-67.9) % Lymph % (Auto) (21.8-53.1) % [place] % (Auto) (5.3-12.2) % Eos % (Auto) (0.8-7.0) Baso % (Auto) (0.1-1.2) % Neut # (Auto) (1.78-5.38) K/mm3 Lymph # (Auto) (1.32-3.57) K/mm3 [place] # (Auto) (0.30-0.82) K/mm3 Eos # (Auto) (0.04-0.54) K/mm3 Baso # (Auto) (0.01-0.08) K/mm3 Neutrophils % (Manual) (40-60) % Band Neutrophils % (0-10) % Lymphocytes % (Manual) (20-40) % Atypical Lymphs % % Monocytes % (Manual) (2-10) % Eosinophils % (Manual) (0.8-7.0) % Basophils % (Manual) (0.2-1.2) Platelet Estimate Plt Morphology Comment Hypochromasia RBC Morph Comment PT (9.7-12.0) SECONDS INR APTT (21.7-31.4) SECONDS ABG pH 7.46 H (7.35-7.45) ABG pCO2 43.0 (35.0-45.0) mmHg ABG pO2 68.0 L (80.0-100.0) mmHg ABG HCO3 30.2 H (22.0-26.0) meq/L ABG O2 Saturation 94.8 L (96.0-97.0) % ABG Base Excess 6.1 H (-2-2.0) A-a Gradient 106 mmHg O2 Delivery Device Nasal cannula Oxygen Flow Rate 3.0 FiO2 32.00 (21.00-100.00) % Sodium (136-145) mEq/L Potassium (3.5-5.1) mEq/L Chloride (98-107) mEq/L Carbon Dioxide (21-32) mEq/L Anion Gap (5-15) BUN (7-18) mg/dL Creatinine (0.7-1.3) mg/dL Est Cr Clr Drug Dosing mL/min Estimated GFR (MDRD) (>60) mL/min BUN/Creatinine Ratio (14-18) Glucose (80-115) mg/dL Lactic Acid 1.0 (0.4-2.0) mmol/L Calcium (8.5-10.1) mg/dL Magnesium (1.8-2.4) mg/dl Total Bilirubin (0.2-1.0) mg/dL AST (15-37) U/L ALT (16-63) U/L Alkaline Phosphatase (46-116) U/L Troponin I (0.00-0.056) ng/mL C-Reactive Protein (<1.0) mg/dL NT-Pro-B Natriuret Pep 37 (0-125) pg/mL Total Protein (6.4-8.2) g/dl Albumin (3.4-5.0) g/dl Globulin gm/dL Albumin/Globulin Ratio (1-2) Urine Color (Yellow) Urine Appearance (Clear) Urine pH (5.0-8.0) Ur Specific [place] (1.005-1.030) Urine Protein (Negative) Urine Glucose (UA) (Negative) Urine Ketones (Negative) Urine Occult Blood (Negative) Urine Nitrite (Negative) Urine Bilirubin (Negative) Urine Urobilinogen (0.2-1.0) Ur Leukocyte Esterase (Negative) Urine RBC (0-5) /hpf Urine WBC (0-5) /hpf Ur Squamous Epith Cells (0-5) /hpf Urine Bacteria (FEW) /hpf Urine Mucus (FEW) /hpf SARS-CoV-2 RNA ([facility]) (NEGATIVE) MRSA (PCR) 12/14/19 12/14/19 12/14/19 Range/Units 18:30 19:15 20:20 WBC (4.23-9.07) K/mm3 RBC (4.63-6.08) M/mm3 Hgb (13.7-17.5) gm/dl Hct (40.1-51.0) % MCV (79.0-92.2) fl MCH (25.7-32.2) pg MCHC (32.2-35.5) g/dl RDW Std Deviation (35.1-43.9) fL Plt Count (163-337) K/mm3 MPV (9.4-12.3) fl Neut % (Auto) (34.0-67.9) % Lymph % (Auto) (21.8-53.1) % [place] % (Auto) (5.3-12.2) % Eos % (Auto) (0.8-7.0) Baso % (Auto) (0.1-1.2) % Neut # (Auto) (1.78-5.38) K/mm3 Lymph # (Auto) (1.32-3.57) K/mm3 [place] # (Auto) (0.30-0.82) K/mm3 Eos # (Auto) (0.04-0.54) K/mm3 Baso # (Auto) (0.01-0.08) K/mm3 Neutrophils % (Manual) (40-60) % Band Neutrophils % (0-10) % Lymphocytes % (Manual) (20-40) % Atypical Lymphs % % Monocytes % (Manual) (2-10) % Eosinophils % (Manual) (0.8-7.0) % Basophils % (Manual) (0.2-1.2) Platelet Estimate Plt Morphology Comment Hypochromasia RBC Morph Comment PT (9.7-12.0) SECONDS INR APTT (21.7-31.4) SECONDS ABG pH (7.35-7.45) ABG pCO2 (35.0-45.0) mmHg ABG pO2 (80.0-100.0) mmHg ABG HCO3 (22.0-26.0) meq/L ABG O2 Saturation (96.0-97.0) % ABG Base Excess (-2-2.0) A-a Gradient mmHg O2 Delivery Device Oxygen Flow Rate FiO2 (21.00-100.00) % Sodium (136-145) mEq/L Potassium (3.5-5.1) mEq/L Chloride (98-107) mEq/L Carbon Dioxide (21-32) mEq/L Anion Gap (5-15) BUN (7-18) mg/dL Creatinine (0.7-1.3) mg/dL Est Cr Clr Drug Dosing mL/min Estimated GFR (MDRD) (>60) mL/min BUN/Creatinine Ratio (14-18) Glucose (80-115) mg/dL Lactic Acid (0.4-2.0) mmol/L Calcium (8.5-10.1) mg/dL Magnesium (1.8-2.4) mg/dl Total Bilirubin (0.2-1.0) mg/dL AST (15-37) U/L ALT (16-63) U/L Alkaline Phosphatase (46-116) U/L Troponin I (0.00-0.056) ng/mL C-Reactive Protein (<1.0) mg/dL NT-Pro-B Natriuret Pep (0-125) pg/mL Total Protein (6.4-8.2) g/dl Albumin (3.4-5.0) g/dl Globulin gm/dL Albumin/Globulin Ratio (1-2) Urine Color Yellow (Yellow) Urine Appearance Clear (Clear) Urine pH 6.0 (5.0-8.0) Ur Specific [place] 1.025 (1.005-1.030) Urine Protein Trace H (Negative) Urine Glucose (UA) Negative (Negative) Urine Ketones Trace H (Negative) Urine Occult Blood Negative (Negative) Urine Nitrite Positive H (Negative) Urine Bilirubin Negative (Negative) Urine Urobilinogen 0.2 (0.2-1.0) Ur Leukocyte Esterase Negative (Negative) Urine RBC Not seen (0-5) /hpf Urine WBC 10-20 H (0-5) /hpf Ur Squamous Epith Cells 0-5 (0-5) /hpf Urine Bacteria Few (FEW) /hpf Urine Mucus Not seen (FEW) /hpf SARS-CoV-2 RNA ([place]) Negative (NEGATIVE) MRSA (PCR) Positive H 12/15/19 12/15/19 Range/Units 04:36 04:36 WBC 5.31 (4.23-9.07) K/mm3 RBC 4.30 L (4.63-6.08) M/mm3 Hgb 11.6 L (13.7-17.5) gm/dl Hct 37.7 L (40.1-51.0) % MCV 87.7 (79.0-92.2) fl MCH 27.0 (25.7-32.2) pg MCHC 30.8 L (32.2-35.5) g/dl RDW Std Deviation 42.1 (35.1-43.9) fL Plt Count 111 L (163-337) K/mm3 MPV 12.1 (9.4-12.3) fl Neut % (Auto) 70.0 H (34.0-67.9) % Lymph % (Auto) 20.9 L (21.8-53.1) % [place] % (Auto) 5.3 (5.3-12.2) % Eos % (Auto) 3.4 (0.8-7.0) Baso % (Auto) 0.2 (0.1-1.2) % Neut # (Auto) 3.72 (1.78-5.38) K/mm3 Lymph # (Auto) 1.11 L (1.32-3.57) K/mm3 [place] # (Auto) 0.28 L (0.30-0.82) K/mm3 Eos # (Auto) 0.18 (0.04-0.54) K/mm3 Baso # (Auto) 0.01 (0.01-0.08) K/mm3 Neutrophils % (Manual) (40-60) % Band Neutrophils % (0-10) % Lymphocytes % (Manual) (20-40) % Atypical Lymphs % % Monocytes % (Manual) (2-10) % Eosinophils % (Manual) (0.8-7.0) % Basophils % (Manual) (0.2-1.2) Platelet Estimate Plt Morphology Comment Hypochromasia RBC Morph Comment PT (9.7-12.0) SECONDS INR APTT (21.7-31.4) SECONDS ABG pH (7.35-7.45) ABG pCO2 (35.0-45.0) mmHg ABG pO2 (80.0-100.0) mmHg ABG HCO3 (22.0-26.0) meq/L ABG O2 Saturation (96.0-97.0) % ABG Base Excess (-2-2.0) A-a Gradient mmHg O2 Delivery Device Oxygen Flow Rate FiO2 (21.00-100.00) % Sodium 140 (136-145) mEq/L Potassium 3.7 (3.5-5.1) mEq/L Chloride 105 (98-107) mEq/L Carbon Dioxide 30 (21-32) mEq/L Anion Gap 8.7 (5-15) BUN 13 (7-18) mg/dL Creatinine 0.5 L (0.7-1.3) mg/dL Est Cr Clr Drug Dosing 158.13 mL/min Estimated GFR (MDRD) > 60 (>60) mL/min BUN/Creatinine Ratio 26.0 H (14-18) Glucose 78 L (80-115) mg/dL Lactic Acid (0.4-2.0) mmol/L Calcium 8.2 L (8.5-10.1) mg/dL Magnesium (1.8-2.4) mg/dl Total Bilirubin 0.5 (0.2-1.0) mg/dL AST 10 L (15-37) U/L ALT 7 L (16-63) U/L Alkaline Phosphatase 65 (46-116) U/L Troponin I (0.00-0.056) ng/mL C-Reactive Protein 9.6 H* (<1.0) mg/dL NT-Pro-B Natriuret Pep (0-125) pg/mL Total Protein 5.7 L (6.4-8.2) g/dl Albumin 2.6 L (3.4-5.0) g/dl Globulin 3.1 gm/dL Albumin/Globulin Ratio 0.8 L (1-2) Urine Color (Yellow) Urine Appearance (Clear) Urine pH (5.0-8.0) Ur Specific [place] (1.005-1.030) Urine Protein (Negative) Urine Glucose (UA) (Negative) Urine Ketones (Negative) Urine Occult Blood (Negative) Urine Nitrite (Negative) Urine Bilirubin (Negative) Urine Urobilinogen (0.2-1.0) Ur Leukocyte Esterase (Negative) Urine RBC (0-5) /hpf Urine WBC (0-5) /hpf Ur Squamous Epith Cells (0-5) /hpf Urine Bacteria (FEW) /hpf Urine Mucus (FEW) /hpf SARS-CoV-2 RNA ([place]) (NEGATIVE) MRSA (PCR) Med Orders - Current: Current Medications Acetaminophen (Tylenol) 650 mg PO Q4H PRN PRN Reason: Pain (Mild 1-3)/fever Albuterol (Proventil Neb Soln) 2.5 mg NEB Q2H PRN PRN Reason: Shortness Of Breath/wheezing Albuterol/Ipratropium (Duoneb 3.0-0.5 Mg/3 Ml) 3 ml NEB Q4H PRN PRN Reason: Shortness Of Breath/wheezing Baclofen (Lioresal) 10 mg PO QID [facility] Last Admin: 12/15/19 12:28 Dose: 10 mg Documented by: Benzonatate (Tessalon Perles) 100 mg PO TID PRN PRN Reason: Cough Buspirone HCl (Buspar) 15 mg PO BID [facility] Last Admin: 12/15/19 08:45 Dose: 15 mg Documented by: Carbidopa/Levodopa (Sinemet 25-100 Mg) 1 tab PO QID [facility] Last Admin: 12/15/19 12:28 Dose: 1 tab Documented by: Celecoxib (Celebrex) 200 mg PO DAILY PRN PRN Reason: Pain (moderate 4-6) Citalopram Hydrobromide (Celexa) 40 mg PO BEDTIME [facility] Last Admin: 12/14/19 21:43 Dose: 40 mg Documented by: Cyclobenzaprine HCl (Flexeril) 5 mg PO TID PRN PRN Reason: Spasms Last Admin: 12/14/19 21:40 Dose: 5 mg Documented by: Enoxaparin Sodium (Lovenox) 40 mg SUBCUT DAILY [facility] Last Admin: 12/15/19 08:36 Dose: 40 mg Documented by: Fentanyl (Duragesic) 75 mcg TRDERM Q72H [facility] Gabapentin (Neurontin) 200 mg PO TID [facility] Last Admin: 12/15/19 08:44 Dose: 200 mg Documented by: Hydromorphone HCl (Dilaudid) 2 mg PO Q6H PRN PRN Reason: Pain (severe 7-10) Last Admin: 12/15/19 08:58 Dose: 2 mg Documented by: Vancomycin HCl 1 gm/ Sodium (Chloride) 250 mls @ 250 mls/hr IV Q12H [facility] Last Admin: 12/15/19 10:04 Dose: 250 mls/hr Documented by: Meropenem/Sodium Chloride 500 (mg/ Premix) 50 mls @ 100 mls/hr IV Q6H [facility] Last Admin: 12/15/19 12:29 Dose: 100 mls/hr Documented by: Lactulose (Cephulac) 20 gm PO DAILY PRN PRN Reason: Constipation Lorazepam (Ativan) 0.5 mg PO BID@1200,1600 [facility] Last Admin: 12/15/19 12:28 Dose: 0.5 mg Documented by: Lorazepam (Ativan) 1 mg PO BID [facility] Last Admin: 12/15/19 08:45 Dose: 1 mg Documented by: Losartan Potassium (Cozaar) 50 mg PO DAILY [facility] Last Admin: 12/15/19 08:44 Dose: 50 mg Documented by: Magnesium Oxide (Magnesium Oxide) 400 mg PO BID [facility] Last Admin: 12/15/19 08:44 Dose: 400 mg Documented by: Miscellaneous Information (Remove Patch) 1 ea TRDERM Q72H [facility] Ondansetron HCl (Zofran) 4 mg IV Q4H PRN PRN Reason: Nausea/Vomiting Ondansetron HCl (Zofran Odt) 4 mg PO Q6H PRN PRN Reason: nausea, able to take PO Polyethylene Glycol (Miralax) 17 gm PO DAILY [facility] Last Admin: 12/15/19 08:36 Dose: 17 gm Documented by: Senna/Docusate Sodium (Senna Plus) 1 tab PO DAILY [facility] Last Admin: 12/15/19 08:44 Dose: 1 tab Documented by: Senna/Docusate Sodium (Senna Plus) 1 tab PO TID PRN PRN Reason: Constipation Simvastatin (Zocor) 20 mg PO BEDTIME [facility] Last Admin: 12/14/19 21:45 Dose: 20 mg Documented by: Terazosin HCl (Hytrin) 5 mg PO BID [facility] Last Admin: 12/15/19 08:44 Dose: 5 mg Documented by: Trazodone HCl (Trazodone) 100 mg PO BEDTIME [facility] Last Admin: 12/14/19 21:41 Dose: 100 mg Documented by: Trolamine Salicylate (Aspercreme 10%) 0 gm TOP Q6H PRN PRN Reason: Pain (mild 1-3) Vancomycin HCl (Pharmacy To Dose - Vancomycin) 1 dose .XX ASDIRECTED PRN PRN Reason: RX TO DOSE VANCO Discontinued Medications Acetaminophen (Tylenol) 650 mg PO ONETIME ONE Stop: 12/14/19 18:26 Last Admin: 12/14/19 18:43 Dose: Not Given Documented by: Acetaminophen (Tylenol) 650 mg PO ONETIME ONE Stop: 12/14/19 18:40 Last Admin: 12/14/19 18:45 Dose: Not Given Documented by: Acetaminophen (Tylenol) 650 mg PO ONETIME ONE Stop: 12/14/19 18:41 Last Admin: 12/14/19 18:45 Dose: 650 mg Documented by: Acetaminophen (Tylenol) Confirm Administered Dose 650 mg .ROUTE .STK-MED ONE Stop: 12/14/19 18:40 Last Admin: 12/14/19 18:43 Dose: Not Given Documented by: Dextrose/Sodium Chloride (Dextrose 5%-Normal Saline) 1,000 mls @ 150 mls/hr IV ASDIRECTED [facility] Last Admin: 12/14/19 18:38 Dose: 150 mls/hr Documented by: Ceftriaxone Sodium 2 gm/ (Sodium Chloride) 100 mls @ 200 mls/hr IV ONETIME ONE Stop: 12/14/19 19:13 Last Admin: 12/14/19 18:52 Dose: 200 mls/hr Documented by: Sodium Chloride (Normal Saline) 1,000 mls @ 100 mls/hr IV ASDIRECTED [facility] Stop: 12/15/19 06:29 Last Admin: 12/14/19 21:35 Dose: 100 mls/hr Documented by: Meropenem (Merrem) 1 gm IVPUSH Q8H [facility] Last Admin: 12/15/19 07:37 Dose: Not Given Documented by: Trolamine Salicylate (Aspercreme 10%) 2 gm TOP Q4H PRN PRN Reason: Pain (mild 1-3) - Exam Quality Assessment: Supplemental Oxygen General: Alert, Oriented HEENT: Pupils Equal, Mucous Membr. Moist/[place] Neck: Supple Lungs: Clear to Auscultation, Normal Respiratory Effort Cardiovascular: Regular Rate, Regular Rhythm GI/Abdominal Exam: Normal Bowel Sounds, Soft, Non-Tender, No Organomegaly, No Distention Extremities: Non-Tender, No Pedal Edema, Normal Capillary Refill Skin: Warm, Dry, Intact Psy/Mental Status: Alert, Normal Affect, Normal Mood Sepsis Event Note - Evaluation Sepsis Screening Result: No Definite Risk - Focused Exam Vital Signs: Vital Signs Temp Pulse Resp BP Pulse Ox Pulse Ox 12/15/19 11:41 98.6 F 69 20 113/74 95 12/15/19 08:44 124/62 12/15/19 07:40 97.9 F 62 20 124/62 96 12/15/19 05:58 99 12/15/19 03:11 97.7 F 67 18 122/69 91 L - Problem List & Annotations (1) Hypoxemia SNOMED Code(s): 639842515 Code(s): R09.02 - HYPOXEMIA Status: Acute Current Visit: Yes (2) Progressive supranuclear ophthalmoplegia SNOMED Code(s): 07364931 Code(s): G23.1 - PROGRESSIVE SUPRANUCLEAR OPHTHALMOPLEGIA Status: Acute Current Visit: Yes (3) Upper urinary tract infection SNOMED Code(s): 686014548 Code(s): N39.0 - URINARY TRACT INFECTION, SITE NOT SPECIFIED Status: Acute Current Visit: Yes (4) Anxiety SNOMED Code(s): 17151632 Code(s): F41.9 - ANXIETY DISORDER, UNSPECIFIED Status: Acute Current Visit: No (5) Dyslipidemia SNOMED Code(s): 082032596 Code(s): E78.5 - HYPERLIPIDEMIA, UNSPECIFIED Status: Acute Current Visit: No (6) Hypertension SNOMED Code(s): 43252158 Code(s): I10 - ESSENTIAL (PRIMARY) HYPERTENSION Status: Acute Current Visit: No - Problem List Review Problem List Initiated/Reviewed/Updated: Yes - My Orders Last 24 Hours: My Active Orders 12/14/19 20:30 Bedrest Bathroom Privileges [RC] ASDIRECTED VTE/DVT Education [RC] PER UNIT ROUTINE Vital Signs [RC] Q4H Respiratory Care Assess and Treatment [CONS] Routine Acetaminophen [TylenoL] 650 mg PO Q4H PRN Albuterol [Proventil Neb Soln] 2.5 mg NEB Q2H PRN Albuterol/Ipratropium [DuoNeb 3.0-0.5 MG/3 ML] 3 ml NEB Q4H PRN Ondansetron [Zofran] 4 mg IV Q4H PRN Resuscitation Status Routine 12/14/19 20:35 RT Aerosol Therapy [RC] ASDIRECTED Benzonatate [Tessalon Perles] 100 mg PO TID PRN Celecoxib [CeleBREX] 200 mg PO DAILY PRN Docusate Sodium/Sennosides [Senna Plus] 1 tab PO TID PRN HYDROmorphone [Dilaudid] 2 mg PO Q6H PRN Ondansetron [Zofran ODT] 4 mg PO Q6H PRN 12/14/19 20:45 Pharmacy to Dose - Vancomycin 1 dose .XX ASDIRECTED PRN 12/14/19 20:57 Cyclobenzaprine [Flexeril] 5 mg PO TID PRN 12/14/19 20:59 Lactulose [Cephulac] 20 gm PO DAILY PRN 12/14/19 21:00 Baclofen [Lioresal] 10 mg PO QID Carbidopa/Levodopa [Sinemet 25-100 mg] 1 tab PO QID Citalopram [Celexa] 40 mg PO BEDTIME Gabapentin [Neurontin] 200 mg PO TID LORazepam [Ativan] 1 mg PO BID Magnesium Oxide 400 mg PO BID Simvastatin [Zocor] 20 mg PO BEDTIME Terazosin [Hytrin] 5 mg PO BID busPIRone [Buspar] 15 mg PO BID traZODone 100 mg PO BEDTIME 12/14/19 22:00 Vancomycin [Vancocin] 1 gm Sodium Chloride 0.9% [Normal Saline (AdvBag)] 250 ml IV Q12H 12/15/19 01:21 Isolation [COMM] Routine 12/15/19 Breakfast Regular Diet [DIET] 12/15/19 07:30 Meropenem Premix [Meropenem] 500 mg Premix Bag 1 bag IV Q6H 12/15/19 07:45 Trolamine Salicylate/Aloe Vera [Aspercreme 10%] 0 gm TOP Q6H PRN 12/15/19 09:00 Docusate Sodium/Sennosides [Senna Plus] 1 tab PO DAILY Enoxaparin [Lovenox] 40 mg SUBCUT DAILY Losartan [Cozaar] 50 mg PO DAILY polyethylene glycoL 3350 [MiraLAX] 17 gm PO DAILY 12/15/19 12:00 LORazepam [Ativan] 0.5 mg PO BID@1200,1600 12/15/19 20:00 Remove Patch 1 ea TRDERM Q72H fentaNYL [Duragesic] 75 mcg TRDERM Q72H 12/16/19 09:00 VANCOMYCIN TROUGH [CHEM] Timed - Plan Plan:: Assessment 12/14/2019 * 64-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 He has old scarring on his chest x- ray without any acute findings. He did have a UTI and is nonambulatory. He also takes narcotics with benzodiazepines which could be contributing to some decreased respiratory drive. These will be very difficult to decrease and there has not been any recent increase in dose. Patient be admitted and started on antibiotic therapy, follow his oxygen saturations and titrate his FiO2 to keep his SPO2 greater than 92%. It is possible that the patient may need chronic 12/15/2019 * Oxygenation is improved only requiring 2 L via nasal cannula to keep his SPO2 around 95%. * He has been afebrile overnight. White count still normal. * Urine cultures are still pending. * Appetite is good. Plan * Continue meropenem and vancomycin secondary to his complicated UTI and history of MRSA until cultures return * Await cultures of urine and blood * Follow CBC, CMP, mag, C-reactive protein * Continue home meds * FiO2 to keep SPO2 greater than 92% * CODE STATUS: DNR/DNI * VTE prophylaxis with Lovenox * Length of stay likely 2 to 3 days. Patient may need to go home, [facility], on home O2.
[2019-12-15] MEDS ORDERED: fentaNYL 75 MCG/HR Transdermal Patch TRDERM SCH (20:00)
[2019-12-15] MEDS: traZODone 50 MG Tab PO SCH (20:23)
[2019-12-15] MEDS: Citalopram 20 MG Tab PO SCH (20:23)
[2019-12-15] MEDS: Simvastatin 20 MG Tab PO SCH (20:23)
[2019-12-16] MEDS: Meropenem Premix 500 MG in Premix Bag 1 BAG IV SCH ×4 (01:40→20:15)
[2019-12-16] MEDS: Enoxaparin 40 MG/0.4 ML Syringe SUBCUT SCH (08:32)
[2019-12-16] MEDS: LORazepam 1 MG Tab PO SCH (08:33)
[2019-12-16] MEDS: Polyethylene Glycol 3350 Powder 17 GM Packet PO SCH (08:33)
[2019-12-16] MEDS: busPIRone 15 MG Tab PO SCH ×2 (08:34→20:22)
[2019-12-16] MEDS: Carbidopa/Levodopa 25-100 MG Tab PO SCH ×4 (08:35→20:21)
[2019-12-16] MEDS: Baclofen 10 MG Tab PO SCH ×4 (08:35→20:22)
[2019-12-16] MEDS: Losartan 25 MG Tab PO SCH (08:36)
[2019-12-16] MEDS: Gabapentin 100 MG Cap PO SCH ×3 (08:37→20:23)
[2019-12-16] MEDS: Magnesium Oxide 400 MG Tab PO SCH ×2 (08:37→20:23)
[2019-12-16] MEDS: Terazosin 5 MG Cap PO SCH ×2 (08:38→20:22)
[2019-12-16] MEDS: HYDROmorphone 2 MG Tab PO PRN ×3 (09:03→23:03)
[2019-12-16] MEDS: Vancomycin 1 GM, Vancomycin 250 MG in Sodium Chloride 0.9% 250 ML IV SCH ×2 (10:02→23:03)
[2019-12-16] MEDS: LORazepam 0.5 MG Tab PO SCH ×3 (11:29→20:20)
--- NOTE | 2019-12-16 13:48 | PCM.PN ---
- General Info Date of Service: 12/16/19 Admission Dx/Problem (Free Text): Admission Diagnosis/Problem Admission Diagnosis/Problem Hypoxia Subjective Update: Patient states he feels better than the last couple of days. He is eating better this morning and has been afebrile. Functional Status: Reports: Pain Controlled - Review of Systems General: Reports: No Symptoms HEENT: Reports: No Symptoms Pulmonary: Reports: No Symptoms Cardiovascular: Reports: No Symptoms Gastrointestinal: Reports: No Symptoms Musculoskeletal: Reports: No Symptoms Psychiatric: Reports: No Symptoms - Patient Data Vitals - Most Recent: Last Vital Signs Temp 97.9 F 12/16/19 11:27 Pulse 69 12/16/19 11:27 Resp 18 12/16/19 11:27 BP 100/64 12/16/19 11:27 Pulse Ox 97 12/16/19 11:27 Weight - Most Recent: 73.437 kg I&O - Last 24 Hours: Intake & Output 12/15/19 12/16/19 12/16/19 22:59 06:59 14:59 Intake Total 1300 1050 Output Total 775 900 Balance 525 150 Lab Results Last 24 Hours: Laboratory Results - last 24 hr 12/16/19 12/16/19 12/16/19 Range/Units 05:56 05:56 08:52 WBC 3.05 L (4.23-9.07) K/mm3 RBC 4.50 L (4.63-6.08) M/mm3 Hgb 12.1 L (13.7-17.5) gm/dl Hct 39.0 L (40.1-51.0) % MCV 86.7 (79.0-92.2) fl MCH 26.9 (25.7-32.2) pg MCHC 31.0 L (32.2-35.5) g/dl RDW Std Deviation 41.7 (35.1-43.9) fL Plt Count 123 L (163-337) K/mm3 MPV 11.8 (9.4-12.3) fl Neut % (Auto) 36.3 (34.0-67.9) % Lymph % (Auto) 42.0 (21.8-53.1) % [place] % (Auto) 12.5 H (5.3-12.2) % Eos % (Auto) 8.5 H (0.8-7.0) Baso % (Auto) 0.7 (0.1-1.2) % Neut # (Auto) 1.11 L (1.78-5.38) K/mm3 Lymph # (Auto) 1.28 L (1.32-3.57) K/mm3 [place] # (Auto) 0.38 (0.30-0.82) K/mm3 Eos # (Auto) 0.26 (0.04-0.54) K/mm3 Baso # (Auto) 0.02 (0.01-0.08) K/mm3 Sodium 143 (136-145) mEq/L Potassium 3.6 (3.5-5.1) mEq/L Chloride 108 H (98-107) mEq/L Carbon Dioxide 30 (21-32) mEq/L Anion Gap 8.6 (5-15) BUN 9 (7-18) mg/dL Creatinine 0.6 L (0.7-1.3) mg/dL Est Cr Clr Drug Dosing 132.59 mL/min Estimated GFR (MDRD) > 60 (>60) mL/min BUN/Creatinine Ratio 15.0 (14-18) Glucose 81 (80-115) mg/dL Calcium 8.6 (8.5-10.1) mg/dL Phosphorus 4.0 (2.6-4.7) mg/dL Magnesium 1.8 (1.8-2.4) mg/dl Total Bilirubin 0.5 (0.2-1.0) mg/dL AST 11 L (15-37) U/L ALT 12 L (16-63) U/L Alkaline Phosphatase 63 (46-116) U/L C-Reactive Protein 6.3 H* (<1.0) mg/dL Total Protein 5.8 L (6.4-8.2) g/dl Albumin 2.6 L (3.4-5.0) g/dl Globulin 3.2 gm/dL Albumin/Globulin Ratio 0.8 L (1-2) Vancomycin Trough 8.8 L (10.0-20.0) [place] Results Last 24 Hours: Microbiology 12/14/19 19:15 Urine Culture - Preliminary Urine, Catheterized Gram Negative Rods 12/14/19 18:27 Aerobic Blood Culture - Preliminary Blood - Venous - Lab Draw NO GROWTH AFTER 1 DAY Anaerobic Blood Culture - Preliminary NO GROWTH AFTER 1 DAY 12/14/19 18:20 Aerobic Blood Culture - Preliminary Blood - Venous NO GROWTH AFTER 1 DAY Anaerobic Blood Culture - Preliminary NO GROWTH AFTER 1 DAY Med Orders - Current: Current Medications Acetaminophen (Tylenol) 650 mg PO Q4H PRN PRN Reason: Pain (Mild 1-3)/fever Albuterol (Proventil Neb Soln) 2.5 mg NEB Q2H PRN PRN Reason: Shortness Of Breath/wheezing Albuterol/Ipratropium (Duoneb 3.0-0.5 Mg/3 Ml) 3 ml NEB Q4H PRN PRN Reason: Shortness Of Breath/wheezing Baclofen (Lioresal) 10 mg PO QID [facility] Last Admin: 12/16/19 13:25 Dose: 10 mg Documented by: Benzonatate (Tessalon Perles) 100 mg PO TID PRN PRN Reason: Cough Buspirone HCl (Buspar) 15 mg PO BID [facility] Last Admin: 12/16/19 08:34 Dose: 15 mg Documented by: Carbidopa/Levodopa (Sinemet 25-100 Mg) 1 tab PO QID [facility] Last Admin: 12/16/19 13:24 Dose: 1 tab Documented by: Celecoxib (Celebrex) 200 mg PO DAILY PRN PRN Reason: Pain (moderate 4-6) Citalopram Hydrobromide (Celexa) 40 mg PO BEDTIME [facility] Last Admin: 12/15/19 20:23 Dose: 40 mg Documented by: Cyclobenzaprine HCl (Flexeril) 5 mg PO TID PRN PRN Reason: Spasms Last Admin: 12/14/19 21:40 Dose: 5 mg Documented by: Enoxaparin Sodium (Lovenox) 40 mg SUBCUT DAILY [facility] Last Admin: 12/16/19 08:32 Dose: 40 mg Documented by: Fentanyl (Duragesic) 75 mcg TRDERM Q72H [facility] Last Admin: 12/15/19 20:43 Dose: 75 mcg Documented by: Gabapentin (Neurontin) 200 mg PO TID [facility] Last Admin: 12/16/19 08:37 Dose: 200 mg Documented by: Hydromorphone HCl (Dilaudid) 2 mg PO Q6H PRN PRN Reason: Pain (severe 7-10) Last Admin: 12/16/19 09:03 Dose: 2 mg Documented by: Meropenem/Sodium Chloride 500 (mg/ Premix) 50 mls @ 100 mls/hr IV Q6H [facility] Last Admin: 12/16/19 13:16 Dose: 100 mls/hr Documented by: Vancomycin HCl 1 gm/Vancomycin HCl 250 mg/ Sodium Chloride 250 mls @ 166.667 mls/hr IV Q12H [facility] Last Admin: 12/16/19 10:02 Dose: 166.667 mls/hr Documented by: Lactulose (Cephulac) 20 gm PO DAILY PRN PRN Reason: Constipation Lorazepam (Ativan) 0.5 mg PO BID@1200,1600 [facility] Last Admin: 12/16/19 11:29 Dose: 0.5 mg Documented by: Lorazepam (Ativan) 1 mg PO BID [facility] Last Admin: 12/16/19 08:33 Dose: 1 mg Documented by: Losartan Potassium (Cozaar) 50 mg PO DAILY [facility] Last Admin: 12/16/19 08:36 Dose: 50 mg Documented by: Magnesium Oxide (Magnesium Oxide) 400 mg PO BID [facility] Last Admin: 12/16/19 08:37 Dose: 400 mg Documented by: Miscellaneous Information (Remove Patch) 1 ea TRDERM Q72H [facility] Last Admin: 12/15/19 20:42 Dose: 1 ea Documented by: Ondansetron HCl (Zofran) 4 mg IV Q4H PRN PRN Reason: Nausea/Vomiting Ondansetron HCl (Zofran Odt) 4 mg PO Q6H PRN PRN Reason: nausea, able to take PO Polyethylene Glycol (Miralax) 17 gm PO DAILY [facility] Last Admin: 12/16/19 08:33 Dose: Not Given Documented by: Senna/Docusate Sodium (Senna Plus) 1 tab PO DAILY [facility] Last Admin: 12/16/19 08:33 Dose: 1 tab Documented by: Senna/Docusate Sodium (Senna Plus) 1 tab PO TID PRN PRN Reason: Constipation Simvastatin (Zocor) 20 mg PO BEDTIME [facility] Last Admin: 12/15/19 20:23 Dose: 20 mg Documented by: Terazosin HCl (Hytrin) 5 mg PO BID [facility] Last Admin: 12/16/19 08:38 Dose: 5 mg Documented by: Trazodone HCl (Trazodone) 100 mg PO BEDTIME [facility] Last Admin: 12/15/19 20:23 Dose: 100 mg Documented by: Trolamine Salicylate (Aspercreme 10%) 0 gm TOP Q6H PRN PRN Reason: Pain (mild 1-3) Vancomycin HCl (Pharmacy To Dose - Vancomycin) 1 dose .XX ASDIRECTED PRN PRN Reason: RX TO DOSE VANCO Discontinued Medications Acetaminophen (Tylenol) 650 mg PO ONETIME ONE Stop: 12/14/19 18:26 Last Admin: 12/14/19 18:43 Dose: Not Given Documented by: Acetaminophen (Tylenol) 650 mg PO ONETIME ONE Stop: 12/14/19 18:40 Last Admin: 12/14/19 18:45 Dose: Not Given Documented by: Acetaminophen (Tylenol) 650 mg PO ONETIME ONE Stop: 12/14/19 18:41 Last Admin: 12/14/19 18:45 Dose: 650 mg Documented by: Acetaminophen (Tylenol) Confirm Administered Dose 650 mg .ROUTE .STK-MED ONE Stop: 12/14/19 18:40 Last Admin: 12/14/19 18:43 Dose: Not Given Documented by: Dextrose/Sodium Chloride (Dextrose 5%-Normal Saline) 1,000 mls @ 150 mls/hr IV ASDIRECTED [facility] Last Admin: 12/14/19 18:38 Dose: 150 mls/hr Documented by: Ceftriaxone Sodium 2 gm/ (Sodium Chloride) 100 mls @ 200 mls/hr IV ONETIME ONE Stop: 12/14/19 19:13 Last Admin: 12/14/19 18:52 Dose: 200 mls/hr Documented by: Sodium Chloride (Normal Saline) 1,000 mls @ 100 mls/hr IV ASDIRECTED [facility] Stop: 12/15/19 06:29 Last Admin: 12/14/19 21:35 Dose: 100 mls/hr Documented by: Vancomycin HCl 1 gm/ Sodium (Chloride) 250 mls @ 250 mls/hr IV Q12H [facility] Last Admin: 12/15/19 21:55 Dose: 250 mls/hr Documented by: Meropenem (Merrem) 1 gm IVPUSH Q8H [facility] Last Admin: 12/15/19 07:37 Dose: Not Given Documented by: Trolamine Salicylate (Aspercreme 10%) 2 gm TOP Q4H PRN PRN Reason: Pain (mild 1-3) - Exam Quality Assessment: Supplemental Oxygen General: Alert, Oriented HEENT: Pupils Equal, Mucous Membr. Moist/[place] Lungs: Clear to Auscultation, Normal Respiratory Effort Cardiovascular: Regular Rate, Regular Rhythm GI/Abdominal Exam: Normal Bowel Sounds, Soft, Non-Tender, No Distention Extremities: Normal Inspection, Normal Range of Motion, Non-Tender, No Pedal Edema, Normal Capillary Refill Skin: Warm, Dry, Intact Psy/Mental Status: Alert, Normal Affect, Normal Mood Sepsis Event Note - Evaluation Sepsis Screening Result: No Definite Risk - Focused Exam Vital Signs: Vital Signs Temp Pulse Resp BP Pulse Ox Pulse Ox Pulse Ox 12/16/19 11:27 97.9 F 69 18 100/64 97 12/16/19 08:38 136/88 12/16/19 08:36 136/88 12/16/19 08:23 97.5 F 72 20 136/88 91 L 12/16/19 08:20 89 L 12/16/19 07:57 93 L 12/16/19 06:26 96 12/16/19 04:06 97.5 F 55 L 16 132/65 97 12/16/19 01:44 97.3 F 58 L 16 115/70 98 - Problem List & Annotations (1) Hypoxemia SNOMED Code(s): 980477001 Code(s): R09.02 - HYPOXEMIA Status: Acute Current Visit: Yes (2) Progressive supranuclear ophthalmoplegia SNOMED Code(s): 57958853 Code(s): G23.1 - PROGRESSIVE SUPRANUCLEAR OPHTHALMOPLEGIA Status: Acute Current Visit: Yes (3) Upper urinary tract infection SNOMED Code(s): 094658287 Code(s): N39.0 - URINARY TRACT INFECTION, SITE NOT SPECIFIED Status: Acute Current Visit: Yes (4) Anxiety SNOMED Code(s): 05161202 Code(s): F41.9 - ANXIETY DISORDER, UNSPECIFIED Status: Acute Current Visit: No (5) Dyslipidemia SNOMED Code(s): 918418015 Code(s): E78.5 - HYPERLIPIDEMIA, UNSPECIFIED Status: Acute Current Visit: No (6) Hypertension SNOMED Code(s): 36535620 Code(s): I10 - ESSENTIAL (PRIMARY) HYPERTENSION Status: Acute Current Visit: No - Problem List Review Problem List Initiated/Reviewed/Updated: Yes - My Orders Last 24 Hours: My Active Orders 12/15/19 20:00 Remove Patch 1 ea TRDERM Q72H fentaNYL [Duragesic] 75 mcg TRDERM Q72H 12/16/19 10:00 Vancomycin 1 gm Vancomycin 250 mg Sodium Chloride 0.9% [Normal Saline] 250 ml IV Q12H - Plan Plan:: Assessment 12/14/2019 * 64-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 He has old scarring on his chest x- ray without any acute findings. He did have a UTI and is nonambulatory. He also takes narcotics with benzodiazepines which could be contributing to some decreased respiratory drive. These will be very difficult to decrease and there has not been any recent increase in dose. Patient be admitted and started on antibiotic therapy, follow his oxygen saturations and titrate his FiO2 to keep his SPO2 greater than 92%. It is possible that the patient may need chronic 12/15/2019 * Oxygenation is improved only requiring 2 L via nasal cannula to keep his SPO2 around 95%. * He has been afebrile overnight. White count still normal. * Urine cultures are still pending. * Appetite is good. 12/16/2019 * Patient is down to 1 L/min of oxygen via nasal cannula. * Continues to be afebrile and White count is actually down to 3.05 with absolute neutrophils of 1.11. C-reactive protein is 6.3. * Urine is growing out gram-negative rods * Patient agrees to decrease Ativan Plan * Continue meropenem and vancomycin secondary to his complicated UTI and history of MRSA until cultures return * Await final cultures of urine and blood * Follow CBC, CMP, mag, C-reactive protein * Decrease Ativan from 1 mg twice daily to 0.5 mg twice daily. Continue on his 2 middle of the day 0.5 mg doses. * Continue home meds * FiO2 to keep SPO2 greater than 92% * CODE STATUS: DNR/DNI * VTE prophylaxis with Lovenox * Length of stay likely 2 days. Patient may need to go home, [facility], on home O2.
--- NOTE | 2019-12-16 15:28 | CR ---
PROCEDURE INFORMATION: Exam: XR Chest, 1 View Exam date and time: 12/14/2019 5:54 PM Age: 64 years old Clinical indication: Fever and other: Acute onset fever and hypoxia; Patient HX: Has terminal neurologic disease TECHNIQUE: Imaging protocol: XR of the chest Views: 1 view. COMPARISON: CR Chest 1V Frontal 10/20/2019 12:59 AM FINDINGS: Lungs: There is scarring in the left lower lobe and lingula in the setting of multiple old left-sided rib fracture deformities. No definite pneumonia is identified. Pleural space: There are no pleural effusions. There is no pneumothorax. Heart/Mediastinum: Allowing for patient rotation, lordotic positioning and AP technique, the heart size is normal. The mediastinal and hilar contours are normal. The pulmonary vessels are normal. Bones/joints: No acute osseous pathology is identified. There are multiple old left rib fracture deformities. IMPRESSION: Scarring in the left lower lobe and lingula, likely posttraumatic in the setting of multiple old left rib fracture deformities. No superimposed pneumonia is identified. Thank you for allowing us to participate in the care of your patient. Dictated and Authenticated by: Milly Gross MD 12/14/2019 7:24 PM Central Time ([place] & [place]) MARYLU
[2019-12-16] MEDS: Simvastatin 20 MG Tab PO SCH (20:21)
[2019-12-16] MEDS: Citalopram 20 MG Tab PO SCH (20:22)
[2019-12-16] MEDS: traZODone 50 MG Tab PO SCH (20:23)
[2019-12-17] MEDS: Meropenem Premix 500 MG in Premix Bag 1 BAG IV SCH ×4 (00:48→18:34)
[2019-12-17] MEDS: HYDROmorphone 2 MG Tab PO PRN ×3 (05:45→18:33)
--- NOTE | 2019-12-17 08:17 | PCM.PN ---
- General Info Date of Service: 12/17/19 Admission Dx/Problem (Free Text): Admission Diagnosis/Problem Admission Diagnosis/Problem Hypoxia Subjective Update: Patient continues to be stable. He has no acute complaints. Functional Status: Reports: Pain Controlled - Review of Systems General: Reports: No Symptoms HEENT: Reports: No Symptoms Pulmonary: Reports: No Symptoms Cardiovascular: Reports: No Symptoms Gastrointestinal: Reports: No Symptoms - Patient Data Vitals - Most Recent: Last Vital Signs Temp 97.5 F 12/17/19 05:38 Pulse 72 12/17/19 05:38 Resp 18 12/17/19 05:38 BP 137/86 12/17/19 05:38 Pulse Ox 92 L 12/17/19 05:38 Weight - Most Recent: 73.573 kg I&O - Last 24 Hours: Intake & Output 12/16/19 12/17/19 12/17/19 22:59 06:59 14:59 Intake Total 1550 750 Output Total 540 800 Balance 1010 -50 Lab Results Last 24 Hours: Laboratory Results - last 24 hr 12/16/19 Range/Units 08:52 Vancomycin Trough 8.8 L (10.0-20.0) Rommel Results Last 24 Hours: Microbiology 12/14/19 18:27 Aerobic Blood Culture - Preliminary Blood - Venous - Lab Draw NO GROWTH AFTER 2 DAYS Anaerobic Blood Culture - Preliminary NO GROWTH AFTER 2 DAYS 12/14/19 18:20 Aerobic Blood Culture - Preliminary Blood - Venous NO GROWTH AFTER 2 DAYS Anaerobic Blood Culture - Preliminary NO GROWTH AFTER 2 DAYS 12/14/19 19:15 Urine Culture - Preliminary Urine, Catheterized Gram Negative Rods Med Orders - Current: Current Medications Acetaminophen (Tylenol) 650 mg PO Q4H PRN PRN Reason: Pain (Mild 1-3)/fever Albuterol (Proventil Neb Soln) 2.5 mg NEB Q2H PRN PRN Reason: Shortness Of Breath/wheezing Albuterol/Ipratropium (Duoneb 3.0-0.5 Mg/3 Ml) 3 ml NEB Q4H PRN PRN Reason: Shortness Of Breath/wheezing Baclofen (Lioresal) 10 mg PO QID JASPER Last Admin: 12/16/19 20:22 Dose: 10 mg Documented by: Benzonatate (Tessalon Perles) 100 mg PO TID PRN PRN Reason: Cough Buspirone HCl (Buspar) 15 mg PO BID [facility] Last Admin: 12/16/19 20:22 Dose: 15 mg Documented by: Carbidopa/Levodopa (Sinemet 25-100 Mg) 1 tab PO QID [facility] Last Admin: 12/16/19 20:21 Dose: 1 tab Documented by: Celecoxib (Celebrex) 200 mg PO DAILY PRN PRN Reason: Pain (moderate 4-6) Citalopram Hydrobromide (Celexa) 40 mg PO BEDTIME [facility] Last Admin: 12/16/19 20:22 Dose: 40 mg Documented by: Cyclobenzaprine HCl (Flexeril) 5 mg PO TID PRN PRN Reason: Spasms Last Admin: 12/14/19 21:40 Dose: 5 mg Documented by: Enoxaparin Sodium (Lovenox) 40 mg SUBCUT DAILY [facility] Last Admin: 12/16/19 08:32 Dose: 40 mg Documented by: Fentanyl (Duragesic) 75 mcg TRDERM Q72H [facility] Last Admin: 12/15/19 20:43 Dose: 75 mcg Documented by: Gabapentin (Neurontin) 200 mg PO TID [facility] Last Admin: 12/16/19 20:23 Dose: 200 mg Documented by: Hydromorphone HCl (Dilaudid) 2 mg PO Q6H PRN PRN Reason: Pain (severe 7-10) Last Admin: 12/17/19 05:45 Dose: 2 mg Documented by: Meropenem/Sodium Chloride 500 (mg/ Premix) 50 mls @ 100 mls/hr IV Q6H [facility] Last Admin: 12/17/19 06:38 Dose: 100 mls/hr Documented by: Vancomycin HCl 1 gm/Vancomycin HCl 250 mg/ Sodium Chloride 250 mls @ 166.667 mls/hr IV Q12H [facility] Last Admin: 12/16/19 23:03 Dose: 166.667 mls/hr Documented by: Lactulose (Cephulac) 20 gm PO DAILY PRN PRN Reason: Constipation Lorazepam (Ativan) 0.5 mg PO BID [facility] Last Admin: 12/16/19 20:20 Dose: 0.5 mg Documented by: Lorazepam (Ativan) 0.5 mg PO BID@1300,1700 [facility] Losartan Potassium (Cozaar) 50 mg PO DAILY [facility] Last Admin: 12/16/19 08:36 Dose: 50 mg Documented by: Magnesium Oxide (Magnesium Oxide) 400 mg PO BID [facility] Last Admin: 12/16/19 20:23 Dose: 400 mg Documented by: Miscellaneous Information (Remove Patch) 1 ea TRDERM Q72H [facility] Last Admin: 12/15/19 20:42 Dose: 1 ea Documented by: Ondansetron HCl (Zofran) 4 mg IV Q4H PRN PRN Reason: Nausea/Vomiting Ondansetron HCl (Zofran Odt) 4 mg PO Q6H PRN PRN Reason: nausea, able to take PO Polyethylene Glycol (Miralax) 17 gm PO DAILY [facility] Last Admin: 12/16/19 08:33 Dose: Not Given Documented by: Senna/Docusate Sodium (Senna Plus) 1 tab PO DAILY [facility] Last Admin: 12/16/19 08:33 Dose: 1 tab Documented by: Senna/Docusate Sodium (Senna Plus) 1 tab PO TID PRN PRN Reason: Constipation Simvastatin (Zocor) 20 mg PO BEDTIME [facility] Last Admin: 12/16/19 20:21 Dose: 20 mg Documented by: Terazosin HCl (Hytrin) 5 mg PO BID [facility] Last Admin: 12/16/19 20:22 Dose: 5 mg Documented by: Trazodone HCl (Trazodone) 100 mg PO BEDTIME [facility] Last Admin: 12/16/19 20:23 Dose: 100 mg Documented by: Trolamine Salicylate (Aspercreme 10%) 0 gm TOP Q6H PRN PRN Reason: Pain (mild 1-3) Vancomycin HCl (Pharmacy To Dose - Vancomycin) 1 dose .XX ASDIRECTED PRN PRN Reason: RX TO DOSE VANCO Discontinued Medications Acetaminophen (Tylenol) 650 mg PO ONETIME ONE Stop: 12/14/19 18:26 Last Admin: 12/14/19 18:43 Dose: Not Given Documented by: Acetaminophen (Tylenol) 650 mg PO ONETIME ONE Stop: 12/14/19 18:40 Last Admin: 12/14/19 18:45 Dose: Not Given Documented by: Acetaminophen (Tylenol) 650 mg PO ONETIME ONE Stop: 12/14/19 18:41 Last Admin: 12/14/19 18:45 Dose: 650 mg Documented by: Acetaminophen (Tylenol) Confirm Administered Dose 650 mg .ROUTE .STK-MED ONE Stop: 12/14/19 18:40 Last Admin: 12/14/19 18:43 Dose: Not Given Documented by: Dextrose/Sodium Chloride (Dextrose 5%-Normal Saline) 1,000 mls @ 150 mls/hr IV ASDIRECTED [facility] Last Admin: 12/14/19 18:38 Dose: 150 mls/hr Documented by: Ceftriaxone Sodium 2 gm/ (Sodium Chloride) 100 mls @ 200 mls/hr IV ONETIME ONE Stop: 12/14/19 19:13 Last Admin: 12/14/19 18:52 Dose: 200 mls/hr Documented by: Sodium Chloride (Normal Saline) 1,000 mls @ 100 mls/hr IV ASDIRECTED [facility] Stop: 12/15/19 06:29 Last Admin: 12/14/19 21:35 Dose: 100 mls/hr Documented by: Vancomycin HCl 1 gm/ Sodium (Chloride) 250 mls @ 250 mls/hr IV Q12H [facility] Last Admin: 12/15/19 21:55 Dose: 250 mls/hr Documented by: Lorazepam (Ativan) 0.5 mg PO BID@1200,1600 [facility] Last Admin: 12/16/19 15:22 Dose: 0.5 mg Documented by: Lorazepam (Ativan) 1 mg PO BID [facility] Last Admin: 12/16/19 08:33 Dose: 1 mg Documented by: Meropenem (Merrem) 1 gm IVPUSH Q8H [facility] Last Admin: 12/15/19 07:37 Dose: Not Given Documented by: Trolamine Salicylate (Aspercreme 10%) 2 gm TOP Q4H PRN PRN Reason: Pain (mild 1-3) - Exam General: Alert, Oriented HEENT: Pupils Equal, Mucous Membr. Moist/[place] Neck: Supple Lungs: Clear to Auscultation, Normal Respiratory Effort Cardiovascular: Regular Rate, Regular Rhythm GI/Abdominal Exam: Normal Bowel Sounds, Soft, Non-Tender, No Distention, No Mass Extremities: Normal Inspection, Normal Range of Motion, No Pedal Edema, Normal Capillary Refill Sepsis Event Note - Evaluation Sepsis Screening Result: No Definite Risk - Focused Exam Vital Signs: Vital Signs Temp Pulse Resp BP Pulse Ox Pulse Ox 12/17/19 05:38 97.5 F 72 18 137/86 92 L 12/16/19 23:03 98.1 F 64 18 127/93 H 93 L 12/16/19 22:19 70 93 L 12/16/19 20:22 117/86 12/16/19 20:19 74 93 L 12/16/19 20:18 93 L - Problem List & Annotations (1) Hypoxemia SNOMED Code(s): 018111473 Code(s): R09.02 - HYPOXEMIA Status: Acute Current Visit: Yes (2) Progressive supranuclear ophthalmoplegia SNOMED Code(s): 62948386 Code(s): G23.1 - PROGRESSIVE SUPRANUCLEAR OPHTHALMOPLEGIA Status: Acute Current Visit: Yes (3) Upper urinary tract infection SNOMED Code(s): 923193091 Code(s): N39.0 - URINARY TRACT INFECTION, SITE NOT SPECIFIED Status: Acute Current Visit: Yes (4) Anxiety SNOMED Code(s): 42644870 Code(s): F41.9 - ANXIETY DISORDER, UNSPECIFIED Status: Acute Current Visit: No (5) Dyslipidemia SNOMED Code(s): 641065028 Code(s): E78.5 - HYPERLIPIDEMIA, UNSPECIFIED Status: Acute Current Visit: No (6) Hypertension SNOMED Code(s): 64143745 Code(s): I10 - ESSENTIAL (PRIMARY) HYPERTENSION Status: Acute Current Visit: No - Problem List Review Problem List Initiated/Reviewed/Updated: Yes - My Orders Last 24 Hours: My Active Orders 12/16/19 10:00 Vancomycin 1 gm Vancomycin 250 mg Sodium Chloride 0.9% [Normal Saline] 250 ml IV Q12H 12/16/19 21:00 LORazepam [Ativan] 0.5 mg PO BID 12/17/19 13:00 LORazepam [Ativan] 0.5 mg PO BID@1300,1700 - Plan Plan:: Assessment 12/14/2019 * 64-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 He has old scarring on his chest x- ray without any acute findings. He did have a UTI and is nonambulatory. He also takes narcotics with benzodiazepines which could be contributing to some decreased respiratory drive. These will be very difficult to decrease and there has not been any recent increase in dose. Patient be admitted and started on antibiotic therapy, follow his oxygen saturations and titrate his FiO2 to keep his SPO2 greater than 92%. It is possible that the patient may need chronic 12/15/2019 * Oxygenation is improved only requiring 2 L via nasal cannula to keep his SPO2 around 95%. * He has been afebrile overnight. White count still normal. * Urine cultures are still pending. * Appetite is good. 12/16/2019 * Patient is down to 1 L/min of oxygen via nasal cannula. * Continues to be afebrile and White count is actually down to 3.05 with absolute neutrophils of 1.11. C-reactive protein is 6.3. * Urine is growing out gram-negative rods * Patient agrees to decrease Ativan 12/17/2019 * Patient continues to improve. He is off of oxygen. No labs today. * Urine continues to grow out gram-negative rods. They are resistant to ciprofloxacin. * Still awaiting final blood and urine cultures. * Decreased Ativan yesterday. Now taking 0.5 mg 4 times daily Plan * Continue meropenem and vancomycin secondary to his complicated UTI and history of MRSA until cultures return * Await final cultures of urine and blood * Decrease Ativan from 1 mg twice daily to 0.5 mg twice daily. Continue on his 2 middle of the day 0.5 mg doses. * Continue home meds * FiO2 to keep SPO2 greater than 92% * CODE STATUS: DNR/DNI * VTE prophylaxis with Lovenox * Discharge pending culture results. Patient may need to go home, [facility], on home O2.
[2019-12-17] MEDS: Vancomycin 1 GM, Vancomycin 250 MG in Sodium Chloride 0.9% 250 ML IV SCH (09:05)
[2019-12-17] MEDS: Terazosin 5 MG Cap PO SCH ×2 (09:07→21:26)
[2019-12-17] MEDS: Losartan 25 MG Tab PO SCH (09:07)
[2019-12-17] MEDS: Magnesium Oxide 400 MG Tab PO SCH ×2 (09:07→21:25)
[2019-12-17] MEDS: Carbidopa/Levodopa 25-100 MG Tab PO SCH ×4 (09:07→21:23)
[2019-12-17] MEDS: Gabapentin 100 MG Cap PO SCH ×3 (09:08→21:25)
[2019-12-17] MEDS: LORazepam 0.5 MG Tab PO SCH ×4 (09:08→21:25)
[2019-12-17] MEDS: busPIRone 15 MG Tab PO SCH ×2 (09:08→21:26)
[2019-12-17] MEDS: Baclofen 10 MG Tab PO SCH ×4 (09:08→21:26)
[2019-12-17] MEDS: Enoxaparin 40 MG/0.4 ML Syringe SUBCUT SCH (09:09)
[2019-12-17] MEDS: Polyethylene Glycol 3350 Powder 17 GM Packet PO SCH (09:27)
[2019-12-17] MEDS: Acetaminophen 325 MG Tab PO PRN ×2 (15:10→21:24)
[2019-12-17] MEDS: traZODone 50 MG Tab PO SCH (21:25)
[2019-12-17] MEDS: Simvastatin 20 MG Tab PO SCH (21:25)
[2019-12-17] MEDS: Citalopram 20 MG Tab PO SCH (21:26)
[2019-12-18] MEDS: HYDROmorphone 2 MG Tab PO PRN ×4 (02:19→21:56)
[2019-12-18] MEDS: Meropenem Premix 500 MG in Premix Bag 1 BAG IV SCH ×4 (02:19→18:50)
[2019-12-18] MEDS: Cyclobenzaprine 10 MG Tab PO PRN ×2 (06:45→17:49)
[2019-12-18] MEDS: Acetaminophen 325 MG Tab PO PRN ×2 (06:45→12:04)
--- NOTE | 2019-12-18 08:52 | PCM.PN ---
- General Info Date of Service: 12/18/19 Admission Dx/Problem (Free Text): Admission Diagnosis/Problem Admission Diagnosis/Problem Hypoxia Subjective Update: Patient states he is still having some anxiety and the decrease in dose of his lorazepam has worsened it. Request to go back up to its original dose. Otherwise, patient is feeling well with his typical pain but nothing new. Urine cultures grew out Pseudomonas sensitive to meropenem and resistant to fluoro quinolones. Functional Status: Reports: Pain Controlled - Review of Systems General: Reports: No Symptoms HEENT: Reports: No Symptoms Pulmonary: Reports: No Symptoms Cardiovascular: Reports: No Symptoms Gastrointestinal: Reports: No Symptoms Psychiatric: Reports: Anxiety - Patient Data Vitals - Most Recent: Last Vital Signs Temp 98.2 F 12/18/19 06:43 Pulse 66 12/18/19 06:43 Resp 16 12/18/19 06:43 BP 143/98 H 12/18/19 06:43 Pulse Ox 92 L 12/18/19 06:43 Weight - Most Recent: 69.264 kg I&O - Last 24 Hours: Intake & Output 12/17/19 12/18/19 12/18/19 22:59 06:59 14:59 Intake Total 1120 650 Output Total 650 950 Balance 470 -300 Lab Results Last 24 Hours: Laboratory Results - last 24 hr 12/18/19 12/18/19 Range/Units 05:12 05:12 WBC 4.21 L (4.23-9.07) K/mm3 RBC 4.69 (4.63-6.08) M/mm3 Hgb 12.8 L (13.7-17.5) gm/dl Hct 39.8 L (40.1-51.0) % MCV 84.9 (79.0-92.2) fl MCH 27.3 (25.7-32.2) pg MCHC 32.2 (32.2-35.5) g/dl RDW Std Deviation 40.6 (35.1-43.9) fL Plt Count 158 L (163-337) K/mm3 MPV 11.4 (9.4-12.3) fl Neut % (Auto) 54.7 (34.0-67.9) % Lymph % (Auto) 28.5 (21.8-53.1) % [place] % (Auto) 12.8 H (5.3-12.2) % Eos % (Auto) 3.3 (0.8-7.0) Baso % (Auto) 0.5 (0.1-1.2) % Neut # (Auto) 2.30 (1.78-5.38) K/mm3 Lymph # (Auto) 1.20 L (1.32-3.57) K/mm3 [place] # (Auto) 0.54 (0.30-0.82) K/mm3 Eos # (Auto) 0.14 (0.04-0.54) K/mm3 Baso # (Auto) 0.02 (0.01-0.08) K/mm3 Sodium 142 (136-145) mEq/L Potassium 3.6 (3.5-5.1) mEq/L Chloride 105 (98-107) mEq/L Carbon Dioxide 30 (21-32) mEq/L Anion Gap 10.6 (5-15) BUN 7 (7-18) mg/dL Creatinine 0.7 (0.7-1.3) mg/dL Est Cr Clr Drug Dosing 113.86 mL/min Estimated GFR (MDRD) > 60 (>60) mL/min BUN/Creatinine Ratio 10.0 L (14-18) Glucose 77 L (80-115) mg/dL Calcium 8.8 (8.5-10.1) mg/dL Phosphorus 4.5 (2.6-4.7) mg/dL Magnesium 1.9 (1.8-2.4) mg/dl Total Bilirubin 0.5 (0.2-1.0) mg/dL AST 12 L (15-37) U/L ALT 15 L (16-63) U/L Alkaline Phosphatase 73 (46-116) U/L C-Reactive Protein 2.4 H* (<1.0) mg/dL Total Protein 6.1 L (6.4-8.2) g/dl Albumin 2.9 L (3.4-5.0) g/dl Globulin 3.2 gm/dL Albumin/Globulin Ratio 0.9 L (1-2) [place] Results Last 24 Hours: Microbiology 12/14/19 19:15 Urine Culture - Final Urine, Catheterized Pseudomonas Aeruginosa Pseudomonas Aeruginosa#2 12/14/19 18:27 Aerobic Blood Culture - Preliminary Blood - Venous - Lab Draw NO GROWTH AFTER 3 DAYS Anaerobic Blood Culture - Preliminary NO GROWTH AFTER 3 DAYS 12/14/19 18:20 Aerobic Blood Culture - Preliminary Blood - Venous NO GROWTH AFTER 3 DAYS Anaerobic Blood Culture - Preliminary NO GROWTH AFTER 3 DAYS Med Orders - Current: Current Medications Acetaminophen (Tylenol) 650 mg PO Q4H PRN PRN Reason: Pain (Mild 1-3)/fever Last Admin: 12/18/19 06:45 Dose: 650 mg Documented by: Albuterol (Proventil Neb Soln) 2.5 mg NEB Q2H PRN PRN Reason: Shortness Of Breath/wheezing Albuterol/Ipratropium (Duoneb 3.0-0.5 Mg/3 Ml) 3 ml NEB Q4H PRN PRN Reason: Shortness Of Breath/wheezing Baclofen (Lioresal) 10 mg PO QID [facility] Last Admin: 12/17/19 21:26 Dose: 10 mg Documented by: Benzonatate (Tessalon Perles) 100 mg PO TID PRN PRN Reason: Cough Buspirone HCl (Buspar) 15 mg PO BID [facility] Last Admin: 12/17/19 21:26 Dose: 15 mg Documented by: Carbidopa/Levodopa (Sinemet 25-100 Mg) 1 tab PO QID [facility] Last Admin: 12/17/19 21:23 Dose: 1 tab Documented by: Celecoxib (Celebrex) 200 mg PO DAILY PRN PRN Reason: Pain (moderate 4-6) Citalopram Hydrobromide (Celexa) 40 mg PO BEDTIME [facility] Last Admin: 12/17/19 21:26 Dose: 40 mg Documented by: Cyclobenzaprine HCl (Flexeril) 5 mg PO TID PRN PRN Reason: Spasms Last Admin: 12/18/19 06:45 Dose: 5 mg Documented by: Enoxaparin Sodium (Lovenox) 40 mg SUBCUT DAILY [facility] Last Admin: 12/17/19 09:09 Dose: 40 mg Documented by: Fentanyl (Duragesic) 75 mcg TRDERM Q72H [facility] Gabapentin (Neurontin) 200 mg PO TID [facility] Last Admin: 12/17/19 21:25 Dose: 200 mg Documented by: Hydromorphone HCl (Dilaudid) 2 mg PO Q6H PRN PRN Reason: Pain (severe 7-10) Last Admin: 12/18/19 02:19 Dose: 2 mg Documented by: Meropenem/Sodium Chloride 500 (mg/ Premix) 50 mls @ 100 mls/hr IV Q6H [facility] Last Admin: 12/18/19 06:45 Dose: 100 mls/hr Documented by: Lactulose (Cephulac) 20 gm PO DAILY PRN PRN Reason: Constipation Lorazepam (Ativan) 0.5 mg PO BID [facility] Last Admin: 12/17/19 21:25 Dose: 0.5 mg Documented by: Lorazepam (Ativan) 0.5 mg PO BID@1300,1700 [facility] Last Admin: 12/17/19 16:34 Dose: 0.5 mg Documented by: Losartan Potassium (Cozaar) 50 mg PO DAILY [facility] Last Admin: 12/17/19 09:07 Dose: 50 mg Documented by: Magnesium Oxide (Magnesium Oxide) 400 mg PO BID [facility] Last Admin: 12/17/19 21:25 Dose: 400 mg Documented by: Miscellaneous Information (Remove Patch) 1 ea TRDERM Q72H [facility] Ondansetron HCl (Zofran) 4 mg IV Q4H PRN PRN Reason: Nausea/Vomiting Ondansetron HCl (Zofran Odt) 4 mg PO Q6H PRN PRN Reason: nausea, able to take PO Polyethylene Glycol (Miralax) 17 gm PO DAILY [facility] Last Admin: 12/17/19 09:27 Dose: Not Given Documented by: Senna/Docusate Sodium (Senna Plus) 1 tab PO DAILY [facility] Last Admin: 12/17/19 09:08 Dose: 1 tab Documented by: Senna/Docusate Sodium (Senna Plus) 1 tab PO TID PRN PRN Reason: Constipation Simvastatin (Zocor) 20 mg PO BEDTIME [facility] Last Admin: 12/17/19 21:25 Dose: 20 mg Documented by: Terazosin HCl (Hytrin) 5 mg PO BID [facility] Last Admin: 12/17/19 21:26 Dose: 5 mg Documented by: Trazodone HCl (Trazodone) 100 mg PO BEDTIME [facility] Last Admin: 12/17/19 21:25 Dose: 100 mg Documented by: Trolamine Salicylate (Aspercreme 10%) 0 gm TOP Q6H PRN PRN Reason: Pain (mild 1-3) Discontinued Medications Acetaminophen (Tylenol) 650 mg PO ONETIME ONE Stop: 12/14/19 18:26 Last Admin: 12/14/19 18:43 Dose: Not Given Documented by: Acetaminophen (Tylenol) 650 mg PO ONETIME ONE Stop: 12/14/19 18:40 Last Admin: 12/14/19 18:45 Dose: Not Given Documented by: Acetaminophen (Tylenol) 650 mg PO ONETIME ONE Stop: 12/14/19 18:41 Last Admin: 12/14/19 18:45 Dose: 650 mg Documented by: Acetaminophen (Tylenol) Confirm Administered Dose 650 mg .ROUTE .STK-MED ONE Stop: 12/14/19 18:40 Last Admin: 12/14/19 18:43 Dose: Not Given Documented by: Fentanyl (Duragesic) 75 mcg TRDERM Q72H [facility] Last Admin: 12/15/19 20:43 Dose: 75 mcg Documented by: Dextrose/Sodium Chloride (Dextrose 5%-Normal Saline) 1,000 mls @ 150 mls/hr IV ASDIRECTED [facility] Last Admin: 12/14/19 18:38 Dose: 150 mls/hr Documented by: Ceftriaxone Sodium 2 gm/ (Sodium Chloride) 100 mls @ 200 mls/hr IV ONETIME ONE Stop: 12/14/19 19:13 Last Admin: 12/14/19 18:52 Dose: 200 mls/hr Documented by: Sodium Chloride (Normal Saline) 1,000 mls @ 100 mls/hr IV ASDIRECTED [facility] Stop: 12/15/19 06:29 Last Admin: 12/14/19 21:35 Dose: 100 mls/hr Documented by: Vancomycin HCl 1 gm/ Sodium (Chloride) 250 mls @ 250 mls/hr IV Q12H [facility] Last Admin: 12/15/19 21:55 Dose: 250 mls/hr Documented by: Meropenem/Sodium Chloride 500 (mg/ Premix) 50 mls @ 100 mls/hr IV Q6H [facility] Last Admin: 12/17/19 06:38 Dose: 100 mls/hr Documented by: Vancomycin HCl 1 gm/Vancomycin HCl 250 mg/ Sodium Chloride 250 mls @ 166.667 mls/hr IV Q12H [facility] Last Admin: 12/17/19 09:05 Dose: 166.667 mls/hr Documented by: Lorazepam (Ativan) 0.5 mg PO BID@1200,1600 [facility] Last Admin: 12/16/19 15:22 Dose: 0.5 mg Documented by: Lorazepam (Ativan) 1 mg PO BID [facility] Last Admin: 12/16/19 08:33 Dose: 1 mg Documented by: Meropenem (Merrem) 1 gm IVPUSH Q8H [facility] Last Admin: 12/15/19 07:37 Dose: Not Given Documented by: Miscellaneous Information (Remove Patch) 1 ea TRDERM Q72H [facility] Last Admin: 12/15/19 20:42 Dose: 1 ea Documented by: Trolamine Salicylate (Aspercreme 10%) 2 gm TOP Q4H PRN PRN Reason: Pain (mild 1-3) Vancomycin HCl (Pharmacy To Dose - Vancomycin) 1 dose .XX ASDIRECTED PRN PRN Reason: RX TO DOSE VANCO - Exam Quality Assessment: No: Supplemental Oxygen General: Alert, Oriented HEENT: Pupils Equal, Mucous Membr. Moist/[place]: Supple Lungs: Clear to Auscultation, Normal Respiratory Effort Cardiovascular: Regular Rate, Regular Rhythm GI/Abdominal Exam: Normal Bowel Sounds, Soft, Non-Tender, No Distention Extremities: Normal Inspection, Normal Range of Motion, Non-Tender, No Pedal Edema, Normal Capillary Refill Skin: Warm, Dry, Intact Psy/Mental Status: Alert, Normal Affect, Normal Mood Sepsis Event Note - Evaluation Sepsis Screening Result: No Definite Risk - Focused Exam Vital Signs: Vital Signs Temp Pulse Resp BP Pulse Ox 12/18/19 06:43 98.2 F 66 16 143/98 H 92 L 12/18/19 02:17 97.7 F 54 L 16 133/71 95 12/17/19 21:26 112/80 12/17/19 21:25 112/80 - Problem List & Annotations (1) Hypoxemia SNOMED Code(s): 845543339 Code(s): R09.02 - HYPOXEMIA Status: Acute Current Visit: Yes (2) Progressive supranuclear ophthalmoplegia SNOMED Code(s): 58666360 Code(s): G23.1 - PROGRESSIVE SUPRANUCLEAR OPHTHALMOPLEGIA Status: Acute Current Visit: Yes (3) Upper urinary tract infection SNOMED Code(s): 491292474 Code(s): N39.0 - URINARY TRACT INFECTION, SITE NOT SPECIFIED Status: Acute Current Visit: Yes (4) Anxiety SNOMED Code(s): 62545685 Code(s): F41.9 - ANXIETY DISORDER, UNSPECIFIED Status: Acute Current Visit: No (5) Dyslipidemia SNOMED Code(s): 519589150 Code(s): E78.5 - HYPERLIPIDEMIA, UNSPECIFIED Status: Acute Current Visit: No (6) Hypertension SNOMED Code(s): 48940411 Code(s): I10 - ESSENTIAL (PRIMARY) HYPERTENSION Status: Acute Current Visit: No - Problem List Review Problem List Initiated/Reviewed/Updated: Yes - My Orders Last 24 Hours: My Active Orders 12/17/19 13:00 LORazepam [Ativan] 0.5 mg PO BID@1300,1700 Meropenem Premix [Meropenem] 500 mg Premix Bag 1 bag IV Q6H 12/18/19 21:00 Remove Patch 1 ea TRDERM Q72H fentaNYL [Duragesic] 75 mcg TRDERM Q72H - Plan Plan:: Assessment 12/14/2019 * 64-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 He has old scarring on his chest x- ray without any acute findings. He did have a UTI and is nonambulatory. He also takes narcotics with benzodiazepines which could be contributing to some decreased respiratory drive. These will be very difficult to decrease and there has not been any recent increase in dose. Patient be admitted and started on antibiotic therapy, follow his oxygen saturations and titrate his FiO2 to keep his SPO2 greater than 92%. It is possible that the patient may need chronic 12/15/2019 * Oxygenation is improved only requiring 2 L via nasal cannula to keep his SPO2 around 95%. * He has been afebrile overnight. White count still normal. * Urine cultures are still pending. * Appetite is good. 12/16/2019 * Patient is down to 1 L/min of oxygen via nasal cannula. * Continues to be afebrile and White count is actually down to 3.05 with absolute neutrophils of 1.11. C-reactive protein is 6.3. * Urine is growing out gram-negative rods * Patient agrees to decrease Ativan 12/17/2019 * Patient continues to improve. He is off of oxygen. No labs today. * Urine continues to grow out gram-negative rods. They are resistant to ciprofloxacin. * Still awaiting final blood and urine cultures. * Decreased Ativan yesterday. Now taking 0.5 mg 4 times daily 12/18/2019 * Patient is having increasing anxiety with the decrease in Ativan. He continues on room air. Patient feels well otherwise. White count continues to be normal at 4.2 which is improved, and CRP 2.4 which is down. * Urine culture was positive for 2 different Pseudomonas aeruginosa. They were both sensitive to meropenem and both resistant to fluoroquinolones. * Stopped vancomycin yesterday. Plan * Continue meropenem for total of 5 days * Increase Ativan from to 1 mg a.m. and p.m. Continue on his 2 middle of the day 0.5 mg doses. * Vital signs every 4 hours with O2 check * CODE STATUS: DNR/DNI * VTE prophylaxis with Lovenox * Discharge after 5 days of antibiotics. * Length of stay greater than 96 hours secondary to pseudomonal infection requiring IV antibiotics.
[2019-12-18] MEDS: Carbidopa/Levodopa 25-100 MG Tab PO SCH ×4 (08:54→21:58)
[2019-12-18] MEDS: Terazosin 5 MG Cap PO SCH ×2 (08:54→21:57)
[2019-12-18] MEDS: Losartan 25 MG Tab PO SCH (08:54)
[2019-12-18] MEDS: Baclofen 10 MG Tab PO SCH ×4 (08:54→21:58)
[2019-12-18] MEDS: Magnesium Oxide 400 MG Tab PO SCH ×2 (08:54→21:57)
[2019-12-18] MEDS: LORazepam 0.5 MG Tab PO SCH ×3 (08:55→16:40)
[2019-12-18] MEDS: Gabapentin 100 MG Cap PO SCH ×3 (08:56→21:57)
[2019-12-18] MEDS: busPIRone 15 MG Tab PO SCH ×2 (08:56→18:50)
[2019-12-18] MEDS: Polyethylene Glycol 3350 Powder 17 GM Packet PO SCH (08:58)
[2019-12-18] MEDS: Enoxaparin 40 MG/0.4 ML Syringe SUBCUT SCH (09:12)
[2019-12-18] MEDS: LORazepam 1 MG Tab PO SCH (18:50)
[2019-12-18] MEDS ORDERED: LORazepam 1 MG Tab PO SCH (21:00)
[2019-12-18] MEDS ORDERED: fentaNYL 75 MCG/HR Transdermal Patch TRDERM SCH (21:00)
[2019-12-18] MEDS: Citalopram 20 MG Tab PO SCH (21:57)
[2019-12-18] MEDS: Simvastatin 20 MG Tab PO SCH (21:58)
[2019-12-18] MEDS: traZODone 50 MG Tab PO SCH (21:58)
[2019-12-19] MEDS: Meropenem Premix 500 MG in Premix Bag 1 BAG IV SCH ×4 (01:49→18:23)
[2019-12-19] MEDS: HYDROmorphone 2 MG Tab PO PRN (04:19)
[2019-12-19] MEDS: Acetaminophen 325 MG Tab PO PRN ×2 (05:57→18:31)
[2019-12-19] MEDS: busPIRone 15 MG Tab PO SCH ×2 (06:01→18:22)
[2019-12-19] MEDS: LORazepam 1 MG Tab PO SCH ×2 (06:01→18:22)
[2019-12-19] MEDS: Terazosin 5 MG Cap PO SCH ×2 (08:22→20:17)
[2019-12-19] MEDS: Magnesium Oxide 400 MG Tab PO SCH ×2 (08:25→20:17)
[2019-12-19] MEDS: Baclofen 10 MG Tab PO SCH ×4 (08:25→20:17)
[2019-12-19] MEDS: Gabapentin 100 MG Cap PO SCH ×3 (08:25→20:16)
[2019-12-19] MEDS: Carbidopa/Levodopa 25-100 MG Tab PO SCH ×4 (08:26→20:17)
[2019-12-19] MEDS: Losartan 25 MG Tab PO SCH (08:27)
[2019-12-19] MEDS: Enoxaparin 40 MG/0.4 ML Syringe SUBCUT SCH (08:29)
[2019-12-19] MEDS: Polyethylene Glycol 3350 Powder 17 GM Packet PO SCH (08:29)
[2019-12-19] MEDS: LORazepam 0.5 MG Tab PO SCH ×2 (12:21→16:19)
--- NOTE | 2019-12-19 17:58 | PCM.PN ---
- General Info Date of Service: 12/19/19 Admission Dx/Problem (Free Text): Admission Diagnosis/Problem Admission Diagnosis/Problem Hypoxia Subjective Update: Patient states he is doing well with no complaints. Functional Status: Reports: Pain Controlled - Review of Systems General: Reports: No Symptoms HEENT: Reports: No Symptoms Pulmonary: Reports: No Symptoms Cardiovascular: Reports: No Symptoms Gastrointestinal: Reports: No Symptoms Genitourinary: Reports: No Symptoms - Patient Data Vitals - Most Recent: Last Vital Signs Temp 98.8 F 12/19/19 15:36 Pulse 72 12/19/19 15:36 Resp 16 12/19/19 15:36 BP 104/88 12/19/19 15:36 Pulse Ox 92 L 12/19/19 15:36 Weight - Most Recent: 68.402 kg I&O - Last 24 Hours: Intake & Output 12/19/19 12/19/19 12/19/19 06:59 14:59 22:59 Intake Total 120 747 Output Total 900 Balance 120 -153 Rommel Results Last 24 Hours: Microbiology 12/14/19 18:27 Aerobic Blood Culture - Preliminary Blood - Venous - Lab Draw NO GROWTH AFTER 4 DAYS Anaerobic Blood Culture - Preliminary NO GROWTH AFTER 4 DAYS 12/14/19 18:20 Aerobic Blood Culture - Preliminary Blood - Venous NO GROWTH AFTER 4 DAYS Anaerobic Blood Culture - Preliminary NO GROWTH AFTER 4 DAYS Med Orders - Current: Current Medications Acetaminophen (Tylenol) 650 mg PO Q4H PRN PRN Reason: Pain (Mild 1-3)/fever Last Admin: 12/19/19 05:57 Dose: 650 mg Documented by: Albuterol (Proventil Neb Soln) 2.5 mg NEB Q2H PRN PRN Reason: Shortness Of Breath/wheezing Albuterol/Ipratropium (Duoneb 3.0-0.5 Mg/3 Ml) 3 ml NEB Q4H PRN PRN Reason: Shortness Of Breath/wheezing Baclofen (Lioresal) 10 mg PO QID [facility] Last Admin: 12/19/19 16:19 Dose: 10 mg Documented by: Benzonatate (Tessalon Perles) 100 mg PO TID PRN PRN Reason: Cough Buspirone HCl (Buspar) 15 mg PO BID@0700,1900 [facility] Last Admin: 12/19/19 06:01 Dose: 15 mg Documented by: Carbidopa/Levodopa (Sinemet 25-100 Mg) 1 tab PO QID [facility] Last Admin: 12/19/19 16:20 Dose: 1 tab Documented by: Celecoxib (Celebrex) 200 mg PO DAILY PRN PRN Reason: Pain (moderate 4-6) Citalopram Hydrobromide (Celexa) 40 mg PO BEDTIME [facility] Last Admin: 12/18/19 21:57 Dose: 40 mg Documented by: Cyclobenzaprine HCl (Flexeril) 5 mg PO TID PRN PRN Reason: Spasms Last Admin: 12/18/19 17:49 Dose: 5 mg Documented by: Enoxaparin Sodium (Lovenox) 40 mg SUBCUT DAILY [facility] Last Admin: 12/19/19 08:29 Dose: 40 mg Documented by: Fentanyl (Duragesic) 75 mcg TRDERM Q72H [facility] Last Admin: 12/18/19 22:13 Dose: 75 mcg Documented by: Gabapentin (Neurontin) 200 mg PO TID [facility] Last Admin: 12/19/19 16:20 Dose: 200 mg Documented by: Hydromorphone HCl (Dilaudid) 2 mg PO Q6H PRN PRN Reason: Pain (severe 7-10) Last Admin: 12/19/19 04:19 Dose: 2 mg Documented by: Meropenem/Sodium Chloride 500 (mg/ Premix) 50 mls @ 100 mls/hr IV Q6H [facility] Last Admin: 12/19/19 12:28 Dose: 100 mls/hr Documented by: Lactulose (Cephulac) 20 gm PO DAILY PRN PRN Reason: Constipation Lorazepam (Ativan) 0.5 mg PO BID@1300,1700 [facility] Last Admin: 12/19/19 16:19 Dose: 0.5 mg Documented by: Lorazepam (Ativan) 1 mg PO BID@0700,1900 [facility] Last Admin: 12/19/19 06:01 Dose: 1 mg Documented by: Losartan Potassium (Cozaar) 50 mg PO DAILY [facility] Last Admin: 12/19/19 08:27 Dose: 50 mg Documented by: Magnesium Oxide (Magnesium Oxide) 400 mg PO BID [facility] Last Admin: 12/19/19 08:25 Dose: 400 mg Documented by: Miscellaneous Information (Remove Patch) 1 ea TRDERM Q72H [facility] Last Admin: 12/18/19 22:13 Dose: 1 ea Documented by: Ondansetron HCl (Zofran) 4 mg IV Q4H PRN PRN Reason: Nausea/Vomiting Ondansetron HCl (Zofran Odt) 4 mg PO Q6H PRN PRN Reason: nausea, able to take PO Polyethylene Glycol (Miralax) 17 gm PO DAILY [facility] Last Admin: 12/19/19 08:29 Dose: Not Given Documented by: Senna/Docusate Sodium (Senna Plus) 1 tab PO DAILY [facility] Last Admin: 12/19/19 08:26 Dose: 1 tab Documented by: Senna/Docusate Sodium (Senna Plus) 1 tab PO TID PRN PRN Reason: Constipation Simvastatin (Zocor) 20 mg PO BEDTIME [facility] Last Admin: 12/18/19 21:58 Dose: 20 mg Documented by: Terazosin HCl (Hytrin) 5 mg PO BID [facility] Last Admin: 12/19/19 08:22 Dose: 5 mg Documented by: Trazodone HCl (Trazodone) 100 mg PO BEDTIME [facility] Last Admin: 12/18/19 21:58 Dose: 100 mg Documented by: Trolamine Salicylate (Aspercreme 10%) 0 gm TOP Q6H PRN PRN Reason: Pain (mild 1-3) Discontinued Medications Acetaminophen (Tylenol) 650 mg PO ONETIME ONE Stop: 12/14/19 18:26 Last Admin: 12/14/19 18:43 Dose: Not Given Documented by: Acetaminophen (Tylenol) 650 mg PO ONETIME ONE Stop: 12/14/19 18:40 Last Admin: 12/14/19 18:45 Dose: Not Given Documented by: Acetaminophen (Tylenol) 650 mg PO ONETIME ONE Stop: 12/14/19 18:41 Last Admin: 12/14/19 18:45 Dose: 650 mg Documented by: Acetaminophen (Tylenol) Confirm Administered Dose 650 mg .ROUTE .STK-MED ONE Stop: 12/14/19 18:40 Last Admin: 12/14/19 18:43 Dose: Not Given Documented by: Buspirone HCl (Buspar) 15 mg PO BID [facility] Last Admin: 12/18/19 08:56 Dose: 15 mg Documented by: Fentanyl (Duragesic) 75 mcg TRDERM Q72H [facility] Last Admin: 12/15/19 20:43 Dose: 75 mcg Documented by: Dextrose/Sodium Chloride (Dextrose 5%-Normal Saline) 1,000 mls @ 150 mls/hr IV ASDIRECTED [facility] Last Admin: 12/14/19 18:38 Dose: 150 mls/hr Documented by: Ceftriaxone Sodium 2 gm/ (Sodium Chloride) 100 mls @ 200 mls/hr IV ONETIME ONE Stop: 12/14/19 19:13 Last Admin: 12/14/19 18:52 Dose: 200 mls/hr Documented by: Sodium Chloride (Normal Saline) 1,000 mls @ 100 mls/hr IV ASDIRECTED [facility] Stop: 12/15/19 06:29 Last Admin: 12/14/19 21:35 Dose: 100 mls/hr Documented by: Vancomycin HCl 1 gm/ Sodium (Chloride) 250 mls @ 250 mls/hr IV Q12H [facility] Last Admin: 12/15/19 21:55 Dose: 250 mls/hr Documented by: Meropenem/Sodium Chloride 500 (mg/ Premix) 50 mls @ 100 mls/hr IV Q6H [facility] Last Admin: 12/17/19 06:38 Dose: 100 mls/hr Documented by: Vancomycin HCl 1 gm/Vancomycin HCl 250 mg/ Sodium Chloride 250 mls @ 166.667 mls/hr IV Q12H [facility] Last Admin: 12/17/19 09:05 Dose: 166.667 mls/hr Documented by: Lorazepam (Ativan) 0.5 mg PO BID@1200,1600 [facility] Last Admin: 12/16/19 15:22 Dose: 0.5 mg Documented by: Lorazepam (Ativan) 1 mg PO BID [facility] Last Admin: 12/16/19 08:33 Dose: 1 mg Documented by: Lorazepam (Ativan) 0.5 mg PO BID [facility] Last Admin: 12/18/19 08:55 Dose: 0.5 mg Documented by: Lorazepam (Ativan) 1 mg PO BID [facility] Meropenem (Merrem) 1 gm IVPUSH Q8H [facility] Last Admin: 12/15/19 07:37 Dose: Not Given Documented by: Miscellaneous Information (Remove Patch) 1 ea TRDERM Q72H [facility] Last Admin: 12/15/19 20:42 Dose: 1 ea Documented by: Trolamine Salicylate (Aspercreme 10%) 2 gm TOP Q4H PRN PRN Reason: Pain (mild 1-3) Vancomycin HCl (Pharmacy To Dose - Vancomycin) 1 dose .XX ASDIRECTED PRN PRN Reason: RX TO DOSE VANCO - Exam Quality Assessment: No: Supplemental Oxygen General: Alert, Oriented HEENT: Pupils Equal Neck: Supple Lungs: Clear to Auscultation, Normal Respiratory Effort Cardiovascular: Regular Rate, Regular Rhythm Peripheral Pulses: 2+: Posterior Tibial (L), Posterior Tibial (R), Dorsalis Pedis (L), Dorsalis Pedis (R) Skin: Warm, Dry, Intact Psy/Mental Status: Alert, Normal Affect, Normal Mood Sepsis Event Note - Evaluation Sepsis Screening Result: No Definite Risk - Focused Exam Vital Signs: Vital Signs Temp Pulse Resp BP Pulse Ox 12/19/19 15:36 98.8 F 72 16 104/88 92 L 12/19/19 12:16 98.8 F 82 16 101/87 94 L 12/19/19 08:27 118/76 12/19/19 08:22 118/76 12/19/19 07:22 98.4 F 70 16 118/76 94 L - Problem List & Annotations (1) Hypoxemia SNOMED Code(s): 971952006 Code(s): R09.02 - HYPOXEMIA Status: Acute Current Visit: Yes (2) Progressive supranuclear ophthalmoplegia SNOMED Code(s): 74103482 Code(s): G23.1 - PROGRESSIVE SUPRANUCLEAR OPHTHALMOPLEGIA Status: Acute Current Visit: Yes (3) Upper urinary tract infection SNOMED Code(s): 849329441 Code(s): N39.0 - URINARY TRACT INFECTION, SITE NOT SPECIFIED Status: Acute Current Visit: Yes (4) Anxiety SNOMED Code(s): 16031026 Code(s): F41.9 - ANXIETY DISORDER, UNSPECIFIED Status: Acute Current Visit: No (5) Dyslipidemia SNOMED Code(s): 723705646 Code(s): E78.5 - HYPERLIPIDEMIA, UNSPECIFIED Status: Acute Current Visit: No (6) Hypertension SNOMED Code(s): 76804577 Code(s): I10 - ESSENTIAL (PRIMARY) HYPERTENSION Status: Acute Current Visit: No - Problem List Review Problem List Initiated/Reviewed/Updated: Yes - My Orders Last 24 Hours: My Active Orders 12/18/19 19:00 LORazepam [Ativan] 1 mg PO BID@0700,1900 busPIRone [Buspar] 15 mg PO BID@0700,1900 12/18/19 21:00 Remove Patch 1 ea TRDERM Q72H fentaNYL [Duragesic] 75 mcg TRDERM Q72H - Plan Plan:: Assessment 12/14/2019 * 64-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 He has old scarring on his chest x- ray without any acute findings. He did have a UTI and is nonambulatory. He also takes narcotics with benzodiazepines which could be contributing to some decreased respiratory drive. These will be very difficult to decrease and there has not been any recent increase in dose. Patient be admitted and started on antibiotic therapy, follow his oxygen saturations and titrate his FiO2 to keep his SPO2 greater than 92%. It is possible that the patient may need chronic 12/15/2019 * Oxygenation is improved only requiring 2 L via nasal cannula to keep his SPO2 around 95%. * He has been afebrile overnight. White count still normal. * Urine cultures are still pending. * Appetite is good. 12/16/2019 * Patient is down to 1 L/min of oxygen via nasal cannula. * Continues to be afebrile and White count is actually down to 3.05 with absolute neutrophils of 1.11. C-reactive protein is 6.3. * Urine is growing out gram-negative rods * Patient agrees to decrease Ativan 12/17/2019 * Patient continues to improve. He is off of oxygen. No labs today. * Urine continues to grow out gram-negative rods. They are resistant to ciprofloxacin. * Still awaiting final blood and urine cultures. * Decreased Ativan yesterday. Now taking 0.5 mg 4 times daily 12/18/2019 * Patient is having increasing anxiety with the decrease in Ativan. He continues on room air. Patient feels well otherwise. White count continues to be normal at 4.2 which is improved, and CRP 2.4 which is down. * Urine culture was positive for 2 different Pseudomonas aeruginosa. They were both sensitive to meropenem and both resistant to fluoroquinolones. * Stopped vancomycin yesterday. 12/19/2019 * Patient had improvement in his anxiety going back to his baseline Ativan. * He has been afebrile since admission. * He continues on meropenem. * Plan discharge in the morning. Plan * Completing course of meropenem * Vital signs every 4 hours with O2 check * CODE STATUS: DNR/DNI * VTE prophylaxis with Lovenox * Plan discharge tomorrow * Length of stay greater than 96 hours secondary to pseudomonal infection requiring IV antibiotics.
[2019-12-19] MEDS: Citalopram 20 MG Tab PO SCH (20:16)
[2019-12-19] MEDS: Simvastatin 20 MG Tab PO SCH (20:17)
[2019-12-19] MEDS: traZODone 50 MG Tab PO SCH (20:17)
[2019-12-20] MEDS: Meropenem Premix 500 MG in Premix Bag 1 BAG IV SCH ×3 (00:21→12:32)
[2019-12-20] MEDS: busPIRone 15 MG Tab PO SCH (06:27)
[2019-12-20] MEDS: LORazepam 1 MG Tab PO SCH (06:28)
[2019-12-20] MEDS: Gabapentin 100 MG Cap PO SCH (09:23)
[2019-12-20] MEDS: Enoxaparin 40 MG/0.4 ML Syringe SUBCUT SCH (09:23)
[2019-12-20] MEDS: Losartan 25 MG Tab PO SCH (09:24)
[2019-12-20] MEDS: Carbidopa/Levodopa 25-100 MG Tab PO SCH ×2 (09:24→12:32)
[2019-12-20] MEDS: Baclofen 10 MG Tab PO SCH ×2 (09:25→12:32)
[2019-12-20] MEDS: Magnesium Oxide 400 MG Tab PO SCH (09:25)
[2019-12-20] MEDS: Terazosin 5 MG Cap PO SCH (09:25)
[2019-12-20] MEDS: Polyethylene Glycol 3350 Powder 17 GM Packet PO SCH (09:25)
[2019-12-20] MEDS: HYDROmorphone 2 MG Tab PO PRN (10:23)
--- NOTE | 2019-12-20 12:06 | PCM.DCSUM1 ---
Discharge Summary - Hospital Course HPI Initial Comments: 64-year-old male with progressive supranuclear ophthalmoplegia, a progressive neurological disease, presented to the emergency department with fever, increasing weakness, and hypoxemia. Patient was placed on 3 L/min nasal cannula by EMS and brought to the emergency department where his oxygen saturations were in the mid 90s. Patient has been hospitalized 2 times previously in the last 3 months most recently last month, October 19, with sepsis felt due to pneumonia. Patient was on multiple antibiotics during that admission and had sputum positive for MRSA. On presentation today he denies any cough. His COVID-19 test have been negative for the last several weeks including today. In the emergency department he had a chest x-ray, UA, blood cultures x2, and septic work-up. Chest x-ray showed some scarring in the left lower lobe and lingula, likely posttraumatic in the setting of multiple old left rib fracture deformities. No superimposed pneumonia identified. UA was positive for nitrites and pyuria. White count was normal at 6.4 with left shift of 87% neutrophils and 2% bands. Mildly elevated PT at 12.2 and PTT at 33.2. Renal function is preserved with estimated GFR of greater than 60. His magnesium was 1.6. C-reactive protein was elevated at 10.2 and lactic acid was 1.0. proBNP negative at 37. It was felt patient was significantly ill enough with new onset UTI, hypoxemia, and recent history of sepsis and broken ribs and pneumonia to be hospitalized for aggressive IV antibiotics. Assessment * 64-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 He has old scarring on his chest x- ray without any acute findings. He did have a UTI and is nonambulatory. He also takes narcotics with benzodiazepines which could be contributing to some decreased respiratory drive. These will be very difficult to decrease and there has not been any recent increase in dose. Patient be admitted and started on antibiotic therapy, follow his oxygen saturations and titrate his FiO2 to keep his SPO2 greater than 92%. It is possible that the patient may need chronic Plan * Admit to medical floor for IV antibiotics and respiratory support. * Start meropenem and vancomycin secondary to his complicated UTI and history of MRSA. * Culture urine and blood * Follow CBC, CMP, mag, C-reactive protein * Continue home meds * FiO2 to keep SPO2 greater than 92% * Consider decreasing lorazepam if possible. * CODE STATUS: DNR/DNI * VTE prophylaxis with Lovenox * Length of stay likely 2 to 3 days. Patient may need to go home, [facility]', on home O2. Diagnosis: Stroke: No - Discharge Data Discharge Date: 12/20/19 Discharge Disposition: DC/Tfer to [facility] 65 Condition: Good - Referral to Home Health Primary Care Physician: Nik Hughes MD - Discharge Diagnosis/Problem(s) (1) Hypoxemia SNOMED Code(s): 226205763 ICD Code: R09.02 - HYPOXEMIA Status: Acute (2) Progressive supranuclear ophthalmoplegia SNOMED Code(s): 20064706 ICD Code: G23.1 - PROGRESSIVE SUPRANUCLEAR OPHTHALMOPLEGIA Status: Acute (3) Upper urinary tract infection SNOMED Code(s): 868383607 ICD Code: N39.0 - URINARY TRACT INFECTION, SITE NOT SPECIFIED Status: Acute (4) Anxiety SNOMED Code(s): 47410616 ICD Code: F41.9 - ANXIETY DISORDER, UNSPECIFIED Status: Acute (5) Dyslipidemia SNOMED Code(s): 712308048 ICD Code: E78.5 - HYPERLIPIDEMIA, UNSPECIFIED Status: Acute (6) Hypertension SNOMED Code(s): 89351153 ICD Code: I10 - ESSENTIAL (PRIMARY) HYPERTENSION Status: Acute - Patient Summary/Data Consults: Consultations 12/14/19 20:30 Respiratory Care Assess and Treatment [CONS] Routine Hospital Course: Assessment 12/14/2019 * 64-year-old male with progressive supranuclear ophthalmoplegia presents the emergency department with worsening hypoxemia and respiratory distress * UTIcomplicatedculture positive for 2 different organisms of Pseudomonas aeruginosa * Hypertension, hyperlipidemia * Chronic pain on Dilaudid, fentanyl patch, baclofen secondary to multiple rib fractures, arthritis, contractures * Anxiety currently being treated with Ativan and BuSpar Patient primarily admitted with hypoxemia. He has old scarring on his chest x- ray without any acute findings. He did have a UTI and is nonambulatory. He also takes narcotics with benzodiazepines which could be contributing to some decreased respiratory drive. These will be very difficult to decrease and there has not been any recent increase in dose. Patient be admitted and started on antibiotic therapy, follow his oxygen saturations and titrate his FiO2 to keep his SPO2 greater than 92%. It is possible that the patient may need chronic 12/15/2019 * Oxygenation is improved only requiring 2 L via nasal cannula to keep his SPO2 around 95%. * He has been afebrile overnight. White count still normal. * Urine cultures are still pending. * Appetite is good. 12/16/2019 * Patient is down to 1 L/min of oxygen via nasal cannula. * Continues to be afebrile and White count is actually down to 3.05 with absolute neutrophils of 1.11. C-reactive protein is 6.3. * Urine is growing out gram-negative rods * Patient agrees to decrease Ativan 12/17/2019 * Patient continues to improve. He is off of oxygen. No labs today. * Urine continues to grow out gram-negative rods. They are resistant to ciprofloxacin. * Still awaiting final blood and urine cultures. * Decreased Ativan yesterday. Now taking 0.5 mg 4 times daily 12/18/2019 * Patient is having increasing anxiety with the decrease in Ativan. He continues on room air. Patient feels well otherwise. White count continues to be normal at 4.2 which is improved, and CRP 2.4 which is down. * Urine culture was positive for 2 different Pseudomonas aeruginosa. They were both sensitive to meropenem and both resistant to fluoroquinolones. * Stopped vancomycin yesterday. 12/19/2019 * Patient had improvement in his anxiety going back to his baseline Ativan. * He has been afebrile since admission. * He continues on meropenem. * Plan discharge in the morning. 12/20/2019 * Patient completed 5 days of meropenem for his pseudomonal UTI. He is doing well and is back at baseline. Afebrile. Appetite is normal. * Is ready for discharge. - Patient Instructions Diet: Usual Diet as Tolerated Driving: Do Not Drive Notify Provider of: Fever, Nausea and/or Vomiting Other/Special Instructions: Follow up with PCP in a week. - Discharge Plan *PRESCRIPTION DRUG MONITORING PROGRAM REVIEWED*: Not Applicable *COPY OF PRESCRIPTION DRUG MONITORING REPORT IN PATIENT DINESH: Not Applicable Home Medications: Home Meds Acetaminophen [Tylenol Arthritis Pain] 650 mg PO Q6H PRN #120 dose 10/22/19 [Rx] Benzonatate [Tessalon Perle] 100 mg PO TID PRN #30 capsule 10/22/19 [Rx] Carbidopa/Levodopa [Carbidopa-Levodopa 25-100] 1 tab PO QID #120 tablet 10/22/19 [Rx] Celecoxib [CeleBREX] 200 mg PO DAILY PRN #30 cap 10/22/19 [Rx] Cyclobenzaprine [Flexeril] 5 mg PO TID PRN #90 10/22/19 [Rx] Escitalopram Oxalate [Lexapro] 20 mg PO BEDTIME #30 dose 10/22/19 [Rx] Gabapentin [Neurontin] 200 mg PO TID #120 dose 10/22/19 [Rx] HYDROmorphone [Dilaudid] 2 mg PO Q6H PRN #40 dose 10/22/19 [Rx] Lactulose [Kristalose] 20 gm PO DAILY PRN #120 packet 10/22/19 [Rx] Losartan [Cozaar] 50 mg PO DAILY #30 dose 10/22/19 [Rx] Magnesium Oxide [Magnesium] 400 mg PO BID #60 dose 10/22/19 [Rx] Ondansetron [Zofran ODT] 4 mg PO Q6H PRN #20 tab.dis 10/22/19 [Rx] Simvastatin 20 mg PO BEDTIME #30 dose 10/22/19 [Rx] Terazosin [Hytrin] 5 mg PO BID #60 cap 10/22/19 [Rx] busPIRone [Buspar] 15 mg PO BID #60 tablet 10/22/19 [Rx] fentaNYL [Duragesic] 75 mcg TD Q72H #10 patch 10/22/19 [Rx] guaiFENesin [Fenesin IR] 400 mg PO Q4H PRN #60 tablet 10/22/19 [Rx] traZODone HCl [Trazodone HCl] 100 mg PO BEDTIME #30 dose 10/22/19 [Rx] Baclofen 10 mg PO QID 12/14/19 [History] LORazepam [Ativan] 0.5 mg PO BID 12/14/19 [History] Sennosides/Docusate Sodium [Senna Plus 8.6-50 mg Tablet] 1 tab PO DAILY 12/14/19 [History] Sennosides/Docusate Sodium [Senna Plus Tablet] 1 each PO TID PRN 12/14/19 [History] Trolamine Salicylate/Aloe Vera [Aspercreme 10% Cream] 2 gm TP Q4H PRN 12/14/19 [History] hydroCHLOROthiazide [Hydrochlorothiazide] 12.5 mg PO DAILY 12/14/19 [History] polyethylene glycoL 3350 [MiraLAX] 17 gram PO DAILY 12/14/19 [History] LORazepam [Ativan] 1 mg PO BID@0700,1900 tablet 12/20/19 [Rx] Remove Patch 1 ea TRDERM Q72H each 12/20/19 [Rx] Oxygen Therapy Mode: Room Air Patient Handouts: Sepsis, Diagnosis, Adult Referrals: Nik Hughes MD [Primary Care Provider] - 12/27/19 3:00 pm - Discharge Summary/Plan Comment DC Time >30 min.: Yes Discharge Summary/Plan Comment: Patient transferred back to [facility] via ambulance. Follow-up with - General Info Date of Service: 12/21/19 Admission Dx/Problem (Free Text: Admission Diagnosis/Problem Admission Diagnosis/Problem Hypoxia Subjective Update: No complaints Functional Status: Reports: Pain Controlled - Review of Systems General: Reports: No Symptoms HEENT: Reports: No Symptoms Pulmonary: Reports: No Symptoms Cardiovascular: Reports: No Symptoms Gastrointestinal: Reports: No Symptoms - Patient Data Vitals - Most Recent: Last Vital Signs Temp 98.8 F 12/20/19 09:16 Pulse 93 12/20/19 09:17 Resp 16 12/20/19 09:17 BP 115/72 12/20/19 09:25 Pulse Ox 92 L 12/20/19 09:17 Weight - Most Recent: 162 lb 3.2 oz I&O - Last 24 hours: Intake & Output 12/19/19 12/20/19 12/20/19 22:59 06:59 14:59 Intake Total 867 250 180 Output Total 900 350 Balance -33 -100 180 Lab Results - Last 24 hrs: Laboratory Results - last 24 hr 12/20/19 Range/Units 06:30 SARS-CoV-2 RNA (CAMILLA) Negative (NEGATIVE) TYREE Results - Last 24 hrs: Microbiology 12/14/19 18:27 Aerobic Blood Culture - Preliminary Blood - Venous - Lab Draw NO GROWTH AFTER 5 DAYS Anaerobic Blood Culture - Preliminary NO GROWTH AFTER 5 DAYS 12/14/19 18:20 Aerobic Blood Culture - Preliminary Blood - Venous NO GROWTH AFTER 5 DAYS Anaerobic Blood Culture - Preliminary NO GROWTH AFTER 5 DAYS Med Orders - Current: Current Medications Acetaminophen (Tylenol) 650 mg PO Q4H PRN PRN Reason: Pain (Mild 1-3)/fever Last Admin: 12/19/19 18:31 Dose: 650 mg Documented by: Albuterol (Proventil Neb Soln) 2.5 mg NEB Q2H PRN PRN Reason: Shortness Of Breath/wheezing Albuterol/Ipratropium (Duoneb 3.0-0.5 Mg/3 Ml) 3 ml NEB Q4H PRN PRN Reason: Shortness Of Breath/wheezing Baclofen (Lioresal) 10 mg PO QID [facility] Last Admin: 12/20/19 09:25 Dose: 10 mg Documented by: Benzonatate (Tessalon Perles) 100 mg PO TID PRN PRN Reason: Cough Buspirone HCl (Buspar) 15 mg PO BID@0700,1900 [facility] Last Admin: 12/20/19 06:27 Dose: 15 mg Documented by: Carbidopa/Levodopa (Sinemet 25-100 Mg) 1 tab PO QID [facility] Last Admin: 12/20/19 09:24 Dose: 1 tab Documented by: Celecoxib (Celebrex) 200 mg PO DAILY PRN PRN Reason: Pain (moderate 4-6) Citalopram Hydrobromide (Celexa) 40 mg PO BEDTIME [facility] Last Admin: 12/19/19 20:16 Dose: 40 mg Documented by: Cyclobenzaprine HCl (Flexeril) 5 mg PO TID PRN PRN Reason: Spasms Last Admin: 12/18/19 17:49 Dose: 5 mg Documented by: Enoxaparin Sodium (Lovenox) 40 mg SUBCUT DAILY [facility] Last Admin: 12/20/19 09:23 Dose: 40 mg Documented by: Fentanyl (Duragesic) 75 mcg TRDERM Q72H [facility] Last Admin: 12/18/19 22:13 Dose: 75 mcg Documented by: Gabapentin (Neurontin) 200 mg PO TID [facility] Last Admin: 12/20/19 09:23 Dose: 200 mg Documented by: Hydromorphone HCl (Dilaudid) 2 mg PO Q6H PRN PRN Reason: Pain (severe 7-10) Last Admin: 12/20/19 10:23 Dose: 2 mg Documented by: Meropenem/Sodium Chloride 500 (mg/ Premix) 50 mls @ 100 mls/hr IV Q6H [facility] Last Admin: 12/20/19 06:27 Dose: 100 mls/hr Documented by: Lactulose (Cephulac) 20 gm PO DAILY PRN PRN Reason: Constipation Lorazepam (Ativan) 0.5 mg PO BID@1300,1700 [facility] Last Admin: 12/19/19 16:19 Dose: 0.5 mg Documented by: Lorazepam (Ativan) 1 mg PO BID@0700,1900 [facility] Last Admin: 12/20/19 06:28 Dose: 1 mg Documented by: Losartan Potassium (Cozaar) 50 mg PO DAILY [facility] Last Admin: 12/20/19 09:24 Dose: 50 mg Documented by: Magnesium Oxide (Magnesium Oxide) 400 mg PO BID [facility] Last Admin: 12/20/19 09:25 Dose: 400 mg Documented by: Miscellaneous Information (Remove Patch) 1 ea TRDERM Q72H [facility] Last Admin: 12/18/19 22:13 Dose: 1 ea Documented by: Ondansetron HCl (Zofran) 4 mg IV Q4H PRN PRN Reason: Nausea/Vomiting Ondansetron HCl (Zofran Odt) 4 mg PO Q6H PRN PRN Reason: nausea, able to take PO Polyethylene Glycol (Miralax) 17 gm PO DAILY [facility] Last Admin: 12/20/19 09:25 Dose: Not Given Documented by: Senna/Docusate Sodium (Senna Plus) 1 tab PO DAILY [facility] Last Admin: 12/20/19 09:25 Dose: 1 tab Documented by: Senna/Docusate Sodium (Senna Plus) 1 tab PO TID PRN PRN Reason: Constipation Simvastatin (Zocor) 20 mg PO BEDTIME [facility] Last Admin: 12/19/19 20:17 Dose: 20 mg Documented by: Terazosin HCl (Hytrin) 5 mg PO BID [facility] Last Admin: 12/20/19 09:25 Dose: 5 mg Documented by: Trazodone HCl (Trazodone) 100 mg PO BEDTIME [facility] Last Admin: 12/19/19 20:17 Dose: 100 mg Documented by: Trolamine Salicylate (Aspercreme 10%) 0 gm TOP Q6H PRN PRN Reason: Pain (mild 1-3) Discontinued Medications Acetaminophen (Tylenol) 650 mg PO ONETIME ONE Stop: 12/14/19 18:26 Last Admin: 12/14/19 18:43 Dose: Not Given Documented by: Acetaminophen (Tylenol) 650 mg PO ONETIME ONE Stop: 12/14/19 18:40 Last Admin: 12/14/19 18:45 Dose: Not Given Documented by: Acetaminophen (Tylenol) 650 mg PO ONETIME ONE Stop: 12/14/19 18:41 Last Admin: 12/14/19 18:45 Dose: 650 mg Documented by: Acetaminophen (Tylenol) Confirm Administered Dose 650 mg .ROUTE .STK-MED ONE Stop: 12/14/19 18:40 Last Admin: 12/14/19 18:43 Dose: Not Given Documented by: Buspirone HCl (Buspar) 15 mg PO BID [facility] Last Admin: 12/18/19 08:56 Dose: 15 mg Documented by: Fentanyl (Duragesic) 75 mcg TRDERM Q72H [facility] Last Admin: 12/15/19 20:43 Dose: 75 mcg Documented by: Dextrose/Sodium Chloride (Dextrose 5%-Normal Saline) 1,000 mls [facility] Admin: 12/14/19 18:38 Dose: 150 mls/hr Documented by: Ceftriaxone Sodium 2 gm/ (Sodium Chloride) 100 mls @ 200 mls/hr IV ONETIME ONE Stop: 12/14/19 19:13 Last Admin: 12/14/19 18:52 Dose: 200 mls/hr Documented by: Sodium Chloride (Normal Saline) 1,000 mls @ 100 mls/hr IV ASDIRECTED [facility] Stop: 12/15/19 06:29 Last Admin: 12/14/19 21:35 Dose: 100 mls/hr Documented by: Vancomycin HCl 1 gm/ Sodium (Chloride) 250 mls @ 250 mls/hr IV Q12H [facility] Last Admin: 12/15/19 21:55 Dose: 250 mls/hr Documented by: Meropenem/Sodium Chloride 500 (mg/ Premix) 50 mls @ 100 mls/hr IV Q6H [facility] Last Admin: 12/17/19 06:38 Dose: 100 mls/hr Documented by: Vancomycin HCl 1 gm/Vancomycin HCl 250 mg/ Sodium Chloride 250 mls @ 166.667 mls/hr IV Q12H [facility] Last Admin: 12/17/19 09:05 Dose: 166.667 mls/hr Documented by: Lorazepam (Ativan) 0.5 mg PO BID@1200,1600 [facility] Last Admin: 12/16/19 15:22 Dose: 0.5 mg Documented by: Lorazepam (Ativan) 1 mg PO BID [facility] Last Admin: 12/16/19 08:33 Dose: 1 mg Documented by: Lorazepam (Ativan) 0.5 mg PO BID [facility] Last Admin: 12/18/19 08:55 Dose: 0.5 mg Documented by: Lorazepam (Ativan) 1 mg PO BID [facility] Meropenem (Merrem) 1 gm IVPUSH Q8H [facility] Last Admin: 12/15/19 07:37 Dose: Not Given Documented by: Miscellaneous Information (Remove Patch) 1 ea TRDERM Q72H [facility] Last Admin: 12/15/19 20:42 Dose: 1 ea Documented by: Trolamine Salicylate (Aspercreme 10%) 2 gm TOP Q4H PRN PRN Reason: Pain (mild 1-3) Vancomycin HCl (Pharmacy To Dose - Vancomycin) 1 dose .XX ASDIRECTED PRN PRN Reason: RX TO DOSE VANCO - Exam General: Reports: Alert, Oriented HEENT: Reports: Pupils Equal, Mucous Membr. Moist/[place] Neck: Reports: Supple Lungs: Reports: Clear to Auscultation, Normal Respiratory Effort Cardiovascular: Reports: Regular Rate, Regular Rhythm GI/Abdominal Exam: Normal Bowel Sounds, Soft, Non-Tender, No Organomegaly, No Distention, No Abnormal Bruit
[2019-12-20] MEDS: LORazepam 0.5 MG Tab PO SCH (12:47)
== END 2019-12-20 13:30 | DRG 690 ==
LOC: JD.ED 17:04 → JD.MS 19:49
PROVIDERS: ADMIT Family Medicine; ATTEND Family Medicine
DX: R50.9 Fever, unspecified (principal); N39.0 Urinary tract infection, site not specified; G23.1 Progressive supranuclear ophthalmoplegia [Steele-Richardson-Olszewski]; R13.10 Dysphagia, unspecified; R09.02 Hypoxemia; F41.9 Anxiety disorder, unspecified; E78.5 Hyperlipidemia, unspecified; I10 Essential (primary) hypertension; Z66 Do not resuscitate; G89.29 Other chronic pain; B96.5 Pseudomonas (aeruginosa) (mallei) (pseudomallei) as the cause of diseases classified elsewhere; H54.7 Unspecified visual loss; E78.00 Pure hypercholesterolemia, unspecified; M54.2 Cervicalgia; K21.9 Gastro-esophageal reflux disease without esophagitis; N40.1 Benign prostatic hyperplasia with lower urinary tract symptoms; R33.8 Other retention of urine; R47.9 Unspecified speech disturbances; M19.90 Unspecified osteoarthritis, unspecified site; G20 Parkinson's disease; K44.9 Diaphragmatic hernia without obstruction or gangrene; Z20.828 Contact with and (suspected) exposure to other viral communicable diseases; S22.42XS Multiple fractures of ribs, left side, sequela; Z79.891 Long term (current) use of opiate analgesic; Z79.899 Other long term (current) drug therapy; Z79.811 Long term (current) use of aromatase inhibitors; Z87.891 Personal history of nicotine dependence; Z86.14 Personal history of Methicillin resistant Staphylococcus aureus infection
CPT/HCPCS: 36415; 36600; 71045; 80053; 81001; 82803; 83605; 83735; 83880; 84484; 85007; 85027; 85610; 85730; 86140; 87040 ×2; 87086; 87184; 87186 ×2; 93005; 96365; 99285; A9270; J0696; J7042; J7050; U0002; 80202; 84100; 85025; 87088; 87641; 93010; 94760; 94761; J1650; J2185; J3370; J7030

== ENCOUNTER 2020-02-11 16:03 | Inpatient (IN) | payer MEDICARE, BC ==
[~2020-02-11 16:03] MED LIST: fentaNYL 75 MCG/HR Transdermal Patch TRDERM SCH
--- NOTE | 2020-02-11 16:17 | EDM.PDOC ---
ED HPI GENERAL MEDICAL PROBLEM - General Chief Complaint: Respiratory Problem Stated Complaint: [facility] Time Seen by Provider: 02/11/20 16:16 - History of Present Illness INITIAL COMMENTS - FREE TEXT/NARRATIVE: 64-year-old male transferred by EMS from [facility] with hypoxia fever and a cough. Patient was noted to be hypoxic today at the intermediate patient is unable to give me much of the history. And I did not get much of a history from EMS other than he was doing well on 3 L of oxygen and was 79% before they started that. The patient is febrile and hypotensive. There is no obtainable history as to the duration of his illness. - Related Data Allergies Allergy/AdvReac Type Severity Reaction Status Date / Time No Known Allergies Allergy Verified 12/15/19 05:50 Home Meds: Home Meds Acetaminophen [Tylenol Arthritis Pain] 650 mg PO Q6H PRN #120 dose 10/22/19 [Rx] Benzonatate [Tessalon Perle] 100 mg PO TID PRN #30 capsule 10/22/19 [Rx] Carbidopa/Levodopa [Carbidopa-Levodopa 25-100] 1 tab PO QID #120 tablet 10/22/19 [Rx] Celecoxib [CeleBREX] 200 mg PO DAILY PRN #30 cap 10/22/19 [Rx] Cyclobenzaprine [Flexeril] 5 mg PO TID PRN #90 10/22/19 [Rx] Escitalopram Oxalate [Lexapro] 20 mg PO BEDTIME #30 dose 10/22/19 [Rx] Gabapentin [Neurontin] 200 mg PO TID #120 dose 10/22/19 [Rx] HYDROmorphone [Dilaudid] 2 mg PO Q6H PRN #40 dose 10/22/19 [Rx] Lactulose [Kristalose] 20 gm PO DAILY PRN #120 packet 10/22/19 [Rx] Losartan [Cozaar] 50 mg PO DAILY #30 dose 10/22/19 [Rx] Magnesium Oxide [Magnesium] 400 mg PO BID #60 dose 10/22/19 [Rx] Ondansetron [Zofran ODT] 4 mg PO Q6H PRN #20 tab.dis 10/22/19 [Rx] Simvastatin 20 mg PO BEDTIME #30 dose 10/22/19 [Rx] Terazosin [Hytrin] 5 mg PO BID #60 cap 10/22/19 [Rx] busPIRone [Buspar] 15 mg PO BID #60 tablet 10/22/19 [Rx] fentaNYL [Duragesic] 75 mcg TD Q72H #10 patch 10/22/19 [Rx] guaiFENesin [Fenesin IR] 400 mg PO Q4H PRN #60 tablet 10/22/19 [Rx] traZODone HCl [Trazodone HCl] 100 mg PO BEDTIME #30 dose 10/22/19 [Rx] Baclofen 10 mg PO QID 12/14/19 [History] LORazepam [Ativan] 0.5 mg PO BID 12/14/19 [History] Sennosides/Docusate Sodium [Senna Plus 8.6-50 mg Tablet] 1 tab PO DAILY 12/14/19 [History] Sennosides/Docusate Sodium [Senna Plus Tablet] 1 each PO TID PRN 12/14/19 [History] Trolamine Salicylate/Aloe Vera [Aspercreme 10% Cream] 2 gm TP Q4H PRN 12/14/19 [History] hydroCHLOROthiazide [Hydrochlorothiazide] 12.5 mg PO DAILY 12/14/19 [History] polyethylene glycoL 3350 [MiraLAX] 17 gram PO DAILY 12/14/19 [History] LORazepam [Ativan] 1 mg PO BID@0700,1900 tablet 12/20/19 [Rx] Remove Patch 1 ea TRDERM Q72H each 12/20/19 [Rx] Past Medical History HEENT History: Reports: Impaired Vision Other HEENT History: Wears glasses Cardiovascular History: Reports: High Cholesterol, Hypertension Respiratory History: Reports: Intubation, Previous Gastrointestinal History: Reports: GERD, Hiatal Hernia Genitourinary History: Reports: BPH, Retention, Urinary Musculoskeletal History: Reports: Arthritis, Neck Pain, Chronic, Osteoarthritis Other Musculoskeletal History: fall; fractured ribs; muscle spasms Neurological History: Reports: Parkinson's, Speech Problems, Vertigo Other Neuro History: 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 Psychiatric History: Reports: Anxiety - Past Surgical History Cardiovascular Surgical History: Reports: None - History Comment History Comment: Patient has chronic severe generalized pain. He is currently on Dilaudid 2 mg 3 times daily and fentanyl patch. 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 Social & Family History - Family History Family Medical History: No Pertinent Family History - Caffeine Use Caffeine Use: Reports: Coffee, Soda - Living Situation & Occupation Living situation: Reports: Single, Alone, Extended Care Facility ([facility] Occupation: Disabled ED ROS GENERAL - Review of Systems Review Of Systems: See Below Reason Not Obtained: At the time of my interview the patient is not answering question ED EXAM, GENERAL - Physical Exam Exam: See Below Exam Limited By: No Limitations General Appearance: Obtunded, Thin Ears: Other (Canals obstructed by cerumen) Nose: Normal Inspection, Normal Mucosa, No Blood Throat/Mouth: Normal Lips, Normal Teeth (He has his own teeth for the most part it reports that he has some dentures so I wonder if he uses partials), Other (Dry mucosa) Head: Atraumatic, Normocephalic Neck: Other (Contracted to the left). No: Lymphadenopathy (L), Lymphadenopathy (R) Respiratory/Chest: No Respiratory Distress, Lungs Clear, Crackles (Bibasilar but much worse in the left base) Cardiovascular: Regular Rate, Rhythm, No Edema, No Murmur GI/Abdominal: Normal Bowel Sounds, Soft, Other (No apparent tenderness) Back Exam: Normal Inspection Extremities: No Pedal Edema (Was reported that he was edematous from the intermediate but I am not seeing it) Skin Exam: Warm, Dry, Intact Course - Vital Signs Last Recorded V/S: Last Vital Signs Temp 37.8 C 02/11/20 16:13 Pulse 110 H 02/11/20 17:15 Resp 20 02/11/20 16:13 BP 79/50 L 02/11/20 17:15 Pulse Ox 80 L 02/11/20 16:13 - Orders/Labs/Meds Orders: Active Orders 24 hr Category Date Time Status EKG Documentation Completion [RC] STAT Care 02/11/20 16:30 Active Chest 1V Frontal [CR] Stat Exams 02/11/20 16:28 Taken COMPREHENSIVE METABOLIC PN,CMP [CHEM] Stat Lab 02/11/20 16:45 Results COVID-19/FLU A+B [MOLEC] Stat Lab 02/11/20 16:53 Received CULTURE BLOOD [BC] Stat Lab 02/11/20 16:45 Received CULTURE BLOOD [BC] Stat Lab 02/11/20 16:55 Received CULTURE URINE [RM] Stat Lab 02/11/20 17:04 Received TROPONIN I [CHEM] Stat Lab 02/11/20 16:45 Results Lactated Ringers [Ringers, Lactated] 1,000 ml Med 02/11/20 17:15 Active IV .BOLUS Sodium Chloride 0.9% [Normal Saline] 1,000 ml Med 02/11/20 17:23 Active IV ONETIME cefTRIAXone [Rocephin] 2 gm Med 02/11/20 17:30 Active Sodium Chloride 0.9% [Normal Saline] 100 ml IV Q24H Blood Culture x2 Reflex Set [OM.PC] Stat Oth 02/11/20 16:28 Ordered Isolation [COMM] Routine Oth 02/11/20 16:41 Ordered Medication Orders Lactated Ringer's (Ringers, Lactated) 1,000 mls @ 999 mls/hr IV .BOLUS ONE Stop: 02/11/20 18:15 Ceftriaxone Sodium 2 gm/ (Sodium Chloride) 100 mls @ 200 mls/hr IV Q24H JASPER Last Admin: 02/11/20 17:39 Dose: 200 mls/hr Documented by: ANTHONY Sodium Chloride (Normal Saline) 1,000 mls @ 999 mls/hr IV ONETIME ONE Stop: 02/11/20 18:23 Last Admin: 02/11/20 17:40 Dose: 999 mls/hr Documented by: ANTHONY Labs: Laboratory Tests 02/11/20 02/11/20 02/11/20 Range/Units 16:45 16:45 16:45 WBC 9.33 H (4.23-9.07) K/mm3 RBC 4.70 (4.63-6.08) M/mm3 Hgb 12.5 L (13.7-17.5) gm/dl Hct 41.6 (40.1-51.0) % MCV 88.5 D (79.0-92.2) fl MCH 26.6 (25.7-32.2) pg MCHC 30.0 L (32.2-35.5) g/dl RDW Std Deviation 46.7 H (35.1-43.9) fL Plt Count 159 L (163-337) K/mm3 MPV 11.0 (9.4-12.3) fl Neut % (Auto) 88.9 H (34.0-67.9) % Lymph % (Auto) 6.3 L (21.8-53.1) % Luna % (Auto) 4.2 L (5.3-12.2) % Eos % (Auto) 0.4 L (0.8-7.0) Baso % (Auto) 0.1 (0.1-1.2) % Neut # (Auto) 8.29 H (1.78-5.38) K/mm3 Lymph # (Auto) 0.59 L (1.32-3.57) K/mm3 Luna # (Auto) 0.39 (0.30-0.82) K/mm3 Eos # (Auto) 0.04 (0.04-0.54) K/mm3 Baso # (Auto) 0.01 (0.01-0.08) K/mm3 Manual Slide Review Abnormal smear PT 11.4 (9.7-12.0) SECONDS INR 1.07 APTT 31.6 H (21.7-31.4) SECONDS Sodium 140 (136-145) mEq/L Potassium 4.3 (3.5-5.1) mEq/L Chloride 103 (98-107) mEq/L Carbon Dioxide 31 (21-32) mEq/L Anion Gap 10.3 (5-15) BUN 18 (7-18) mg/dL Creatinine 1.0 (0.7-1.3) mg/dL Est Cr Clr Drug Dosing TNP Estimated GFR (MDRD) > 60 (>60) mL/min BUN/Creatinine Ratio 18.0 (14-18) Glucose 99 (80-115) mg/dL Lactic Acid (0.4-2.0) mmol/L Calcium 8.9 (8.5-10.1) mg/dL Total Bilirubin 0.6 (0.2-1.0) mg/dL AST 10 L (15-37) U/L Alkaline Phosphatase 79 (46-116) U/L Troponin I < 0.017 (0.00-0.056) ng/mL Total Protein 6.8 (6.4-8.2) g/dl Albumin 3.1 L (3.4-5.0) g/dl Globulin 3.7 gm/dL Albumin/Globulin Ratio 0.8 L (1-2) Urine Color (Yellow) Urine Appearance (Clear) Urine pH (5.0-8.0) Ur Specific [place] (1.005-1.030) Urine Protein (Negative) Urine Glucose (UA) (Negative) Urine Ketones (Negative) Urine Occult Blood (Negative) Urine Nitrite (Negative) Urine Bilirubin (Negative) Urine Urobilinogen (0.2-1.0) Ur Leukocyte Esterase (Negative) Urine RBC (0-5) /hpf Urine WBC (0-5) /hpf Urine WBC Clumps (NOT SEEN) /hpf Ur Squamous Epith Cells (0-5) /hpf Urine Bacteria (FEW) /hpf Urine Mucus (FEW) /hpf 02/11/20 02/11/20 Range/Units 16:45 17:04 WBC (4.23-9.07) K/mm3 RBC (4.63-6.08) M/mm3 Hgb (13.7-17.5) gm/dl Hct (40.1-51.0) % MCV (79.0-92.2) fl MCH (25.7-32.2) pg MCHC (32.2-35.5) g/dl RDW Std Deviation (35.1-43.9) fL Plt Count (163-337) K/mm3 MPV (9.4-12.3) fl Neut % (Auto) (34.0-67.9) % Lymph % (Auto) (21.8-53.1) % Luna % (Auto) (5.3-12.2) % Eos % (Auto) (0.8-7.0) Baso % (Auto) (0.1-1.2) % Neut # (Auto) (1.78-5.38) K/mm3 Lymph # (Auto) (1.32-3.57) K/mm3 Luna # (Auto) (0.30-0.82) K/mm3 Eos # (Auto) (0.04-0.54) K/mm3 Baso # (Auto) (0.01-0.08) K/mm3 Manual Slide Review PT (9.7-12.0) SECONDS INR APTT (21.7-31.4) SECONDS Sodium (136-145) mEq/L Potassium (3.5-5.1) mEq/L Chloride (98-107) mEq/L Carbon Dioxide (21-32) mEq/L Anion Gap (5-15) BUN (7-18) mg/dL Creatinine (0.7-1.3) mg/dL Est Cr Clr Drug Dosing Estimated GFR (MDRD) (>60) mL/min BUN/Creatinine Ratio (14-18) Glucose (80-115) mg/dL Lactic Acid 1.5 (0.4-2.0) mmol/L Calcium (8.5-10.1) mg/dL Total Bilirubin (0.2-1.0) mg/dL AST (15-37) U/L Alkaline Phosphatase (46-116) U/L Troponin I (0.00-0.056) ng/mL Total Protein (6.4-8.2) g/dl Albumin (3.4-5.0) g/dl Globulin gm/dL Albumin/Globulin Ratio (1-2) Urine Color Yellow (Yellow) Urine Appearance Slt cloudy H (Clear) Urine pH 6.0 (5.0-8.0) Ur Specific [place] > or = 1.030 (1.005-1.030) Urine Protein 1+ H (Negative) Urine Glucose (UA) Negative (Negative) Urine Ketones Negative (Negative) Urine Occult Blood Negative (Negative) Urine Nitrite Positive H (Negative) Urine Bilirubin Negative (Negative) Urine Urobilinogen 0.2 (0.2-1.0) Ur Leukocyte Esterase 1+ H (Negative) Urine RBC Not seen (0-5) /hpf Urine WBC 5-10 H (0-5) /hpf Urine WBC Clumps Few (NOT SEEN) /hpf Ur Squamous Epith Cells 5-10 H (0-5) /hpf Urine Bacteria Few (FEW) /hpf Urine Mucus Few (FEW) /hpf Meds: Medications Generic Name Dose Route Start Last Admin Trade Name Freq PRN Reason Stop Dose Admin Lactated Ringer's 1,000 mls @ 999 mls/hr 02/11/20 17:15 Ringers, Lactated IV 02/11/20 18:15 .BOLUS ONE Ceftriaxone Sodium 2 gm/ 100 mls @ 200 mls/hr 02/11/20 17:30 02/11/20 17:39 Sodium Chloride IV 200 mls/hr Q24H JASPER Administration Sodium Chloride 1,000 mls @ 999 mls/hr 02/11/20 17:23 12 17:40 Normal Saline IV 02/11/20 18:23 999 mls/hr ONETIME ONE Administration - Re-Assessments/Exams Free Text/Narrative Re-Assessment/Exam: 02/11/20 17:25 Patient has a left lower lobe infiltrate on his chest x-ray patient will be given 2 g of Rocephin Case discussed with Dr. Marinelli who is aware of this patient will need to be admitted we are still waiting on labs other than the CBC that is back blood cultures and urine have been obtained 02/11/20 17:48 Patient will be admitted to Dr. Marinelli who will assume care at this time. He could well have a urinary tract infection in addition to the left lower lobe pneumonia. He may require pressors in appropriate range. We are working on a second liter of fluid. Departure - Departure Time of Disposition: 17:52 Disposition: Admitted As Inpatient 68 Clinical Impression: Sepsis Pneumonia Qualifiers: Pneumonia type: due to unspecified organism Laterality: bilateral Lung location: lower lobe of lung Qualified Code(s): J18.9 - Pneumonia, unspecified organism Urinary tract infection Qualifiers: Urinary tract infection type: site unspecified Hematuria presence: without hematuria Qualified Code(s): N39.0 - Urinary tract infection, site not specified - Discharge Information Referrals: Nik Hughes MD [Primary Care Provider] - Forms: ED Department Discharge Sepsis Event Note (ED) - Focused Exam Vital Signs: Vital Signs Temp Pulse Resp BP Pulse Ox 02/11/20 17:15 110 H 79/50 L 02/11/20 16:13 37.8 C 110 H 20 101/64 80 L - My Orders Last 24 Hours: My Active Orders 02/11/20 16:28 Chest 1V Frontal [CR] Stat Blood Culture x2 Reflex Set [OM.PC] Stat 02/11/20 16:30 EKG Documentation Completion [RC] STAT 02/11/20 16:41 Isolation [COMM] Routine 02/11/20 16:45 COMPREHENSIVE METABOLIC PN,CMP [CHEM] Stat CULTURE BLOOD [BC] Stat TROPONIN I [CHEM] Stat 02/11/20 16:53 COVID-19/FLU A+B [MOLEC] Stat 02/11/20 16:55 CULTURE BLOOD [BC] Stat 02/11/20 17:04 CULTURE URINE [RM] Stat 02/11/20 17:15 Lactated Ringers [Ringers, Lactated] 1,000 ml IV .BOLUS 02/11/20 17:23 Sodium Chloride 0.9% [Normal Saline] 1,000 ml IV ONETIME 02/11/20 17:30 cefTRIAXone [Rocephin] 2 gm Sodium Chloride 0.9% [Normal Saline] 100 ml IV Q24H - Assessment/Plan Last 24 Hours: My Active Orders 02/11/20 16:28 Chest 1V Frontal [CR] Stat Blood Culture x2 Reflex Set [OM.PC] Stat 02/11/20 16:30 EKG Documentation Completion [RC] STAT 02/11/20 16:41 Isolation [COMM] Routine 02/11/20 16:45 COMPREHENSIVE METABOLIC PN,CMP [CHEM] Stat CULTURE BLOOD [BC] Stat TROPONIN I [CHEM] Stat 02/11/20 16:53 COVID-19/FLU A+B [MOLEC] Stat 02/11/20 16:55 CULTURE BLOOD [BC] Stat 02/11/20 17:04 CULTURE URINE [RM] Stat 02/11/20 17:15 Lactated Ringers [Ringers, Lactated] 1,000 ml IV .BOLUS 02/11/20 17:23 Sodium Chloride 0.9% [Normal Saline] 1,000 ml IV ONETIME 02/11/20 17:30 cefTRIAXone [Rocephin] 2 gm Sodium Chloride 0.9% [Normal Saline] 100 ml IV Q24H
[2020-02-11] MEDS ORDERED: Lactated Ringers 1,000 ML IV ONE (17:15)
[2020-02-11] MEDS ORDERED: Sodium Chloride 0.9% 1,000 ML IV ONE (17:23)
[2020-02-11] MEDS ORDERED: cefTRIAXone 2 GM in Sodium Chloride 0.9% 100 ML IV SCH (17:30)
--- NOTE | 2020-02-11 17:30 | PCM.HP.2 ---
H&P History of Present Illness - General Date of Service: 02/11/20 Source of Information: Patient, Old Records History Limitations: Reports: Other (Slurred speech due to neuromuscular disease.) - History of Present Illness Initial Comments - Free Text/Narative: The patient is a chronically ill 64-year-old gentleman who had been admitted to the emergency department from [facility] on February 11, 2020 due to hypoxia, fever and cough. The patient was found to have severe left lower lobe pneumonia. 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 The patient has been in the hospital 4 times this year with pneumonia secondary to dysphagia. The patient has been able to participate in history of present illness however his speech is very slurred due to his neuromuscular disease. The patient's primary concern is his generalized pain. He has denied any fever or chills. The patient is bedridden and he also has been hypotensive. The patient's COVID-19 and influenza screen are negative. Onset of Symptoms: Reports: Gradual Duration of Symptoms: Reports: Getting Worse Location: Reports: Generalized Quality: Reports: Same as Previous Episode, Stabbing, Throbbing Severity: Severe Improves with: Reports: Medication Worsens with: Reports: Movement Context: Reports: Other (detention resident) Associated Symptoms: Reports: Confusion, Shortness of Breath - Related Data Allergies/Adverse Reactions: Allergies Allergy/AdvReac Type Severity Reaction Status Date / Time No Known Allergies Allergy Verified 02/11/20 20:05 Home Medications: Home Meds Acetaminophen [Tylenol Arthritis Pain] 650 mg PO Q6H PRN #120 dose 10/22/19 [Rx] Benzonatate [Tessalon Perle] 100 mg PO TID PRN #30 capsule 10/22/19 [Rx] Carbidopa/Levodopa [Carbidopa-Levodopa 25-100] 1 tab PO QID #120 tablet 10/22/19 [Rx] Escitalopram Oxalate [Lexapro] 20 mg PO BEDTIME #30 dose 10/22/19 [Rx] Gabapentin [Neurontin] 200 mg PO TID #120 dose 10/22/19 [Rx] HYDROmorphone [Dilaudid] 2 mg PO Q6H PRN #40 dose 10/22/19 [Rx] Lactulose [Kristalose] 20 gm PO DAILY PRN #120 packet 10/22/19 [Rx] Losartan [Cozaar] 50 mg PO DAILY #30 dose 10/22/19 [Rx] Magnesium Oxide [Magnesium] 400 mg PO BID #60 dose 10/22/19 [Rx] Ondansetron [Zofran ODT] 4 mg PO Q6H PRN #20 tab.dis 10/22/19 [Rx] Simvastatin 20 mg PO BEDTIME #30 dose 10/22/19 [Rx] Terazosin [Hytrin] 5 mg PO BID #60 cap 10/22/19 [Rx] busPIRone [Buspar] 15 mg PO BID #60 tablet 10/22/19 [Rx] fentaNYL [Duragesic] 75 mcg TD Q72H #10 patch 10/22/19 [Rx] guaiFENesin [Fenesin IR] 400 mg PO Q4H PRN #60 tablet 10/22/19 [Rx] Baclofen 10 mg PO QID 12/14/19 [History] LORazepam [Ativan] 0.5 mg PO BID 12/14/19 [History] Sennosides/Docusate Sodium [Senna Plus 8.6-50 mg Tablet] 1 tab PO DAILY 12/14/19 [History] Sennosides/Docusate Sodium [Senna Plus Tablet] 1 each PO TID PRN 12/14/19 [History] Trolamine Salicylate/Aloe Vera [Aspercreme 10% Cream] 2 gm TP Q4H PRN 12/14/19 [History] hydroCHLOROthiazide [Hydrochlorothiazide] 12.5 mg PO DAILY 12/14/19 [History] polyethylene glycoL 3350 [MiraLAX] 17 gram PO DAILY 12/14/19 [History] Remove Patch 1 ea TRDERM Q72H each 12/20/19 [Rx] Celecoxib 200 mg PO DAILY 02/11/20 [History] Cyclobenzaprine [Flexeril] 5 mg PO TID 02/11/20 [History] LORazepam [Ativan] 1 mg PO BID@,19 02/11/20 [History] Lactobacillus Acidophilus [Acidophilus Lactobacilli] 1 tab PO DAILY 02/11/20 [History] Sertraline [Zoloft] 50 mg PO BEDTIME 02/11/20 [History] guaiFENesin [Mucinex] 600 mg PO BID 02/11/20 [History] traZODone HCl [Trazodone HCl] 150 mg PO BEDTIME 02/11/20 [History] Past Medical History HEENT History: Reports: Impaired Vision Other HEENT History: Wears glasses Cardiovascular History: Reports: High Cholesterol, Hypertension Respiratory History: Reports: Intubation, Previous Gastrointestinal History: Reports: GERD, Hiatal Hernia Genitourinary History: Reports: BPH, Retention, Urinary Musculoskeletal History: Reports: Arthritis, Neck Pain, Chronic, Osteoarthritis Other Musculoskeletal History: fall; fractured ribs; muscle spasms Neurological History: Reports: Parkinson's, Speech Problems, Vertigo Other Neuro History: 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 Psychiatric History: Reports: Anxiety - Past Surgical History Cardiovascular Surgical History: Reports: None - History Comment History Comment: Patient has chronic severe generalized pain. He is currently on Dilaudid 2 mg 3 times daily and fentanyl patch. 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 Social & Family History - Family History Family Medical History: No Pertinent Family History - Tobacco Use Tobacco Use Status *Q: Never Tobacco User - Caffeine Use Caffeine Use: Reports: None - Recreational Drug Use Recreational Drug Use: No - Living Situation & Occupation Living situation: Reports: Single, Alone, Extended Care Facility ([facility] Occupation: Disabled H&P Review of Systems - Review of Systems: Review Of Systems: See Below General: Reports: Other (Severe generalized pain with spasticity) HEENT: Reports: No Symptoms Pulmonary: Reports: Shortness of Breath, Pleuritic Chest Pain Cardiovascular: Reports: No Symptoms Gastrointestinal: Reports: No Symptoms Genitourinary: Reports: No Symptoms Musculoskeletal: Reports: No Symptoms Skin: Reports: No Symptoms Psychiatric: Reports: No Symptoms Neurological: Reports: Pre-Existing Deficit, Difficulty Walking, Gait Disturbance Hematologic/Lymphatic: Reports: No Symptoms Immunologic: Reports: No Symptoms Exam - Exam Exam: See Below - Vital Signs Vital Signs: Last Vital Signs Temp 37.8 C 02/11/20 16:13 Pulse 110 H 02/11/20 16:13 Resp 20 02/11/20 16:13 BP 101/64 02/11/20 16:13 Pulse Ox 80 L 02/11/20 16:13 Weight: 72.575 kg - Exam Quality Assessment: Supplemental Oxygen General: Alert, Oriented, Other (Slurred speech, frail, chronically ill) HEENT: Conjunctiva Clear, EACs Clear. No: Mucosa Moist & [place] (Dry) Neck: Supple, Trachea Midline Lungs: Decreased Breath Sounds, Crackles Cardiovascular: Regular Rate, Regular Rhythm GI/Abdominal Exam: Normal Bowel Sounds, Soft, No Distention (Male) Exam: Deferred Rectal (Males) Exam: Deferred Extremities: No Pedal Edema. No: Normal Inspection (Contractures, spasticity of upper arms and legs. Hands also with contractures of fingers.) Skin: Warm, Dry, Intact Neurological: Hyperreflexia. No: Normal Speech (Due to pre-existing deficit) Psychiatric: Alert, Depressed - Patient Data Lab Results Last 24 hrs: Laboratory Results - last 24 hr 02/11/20 02/11/20 02/11/20 Range/Units 16:45 16:45 17:04 WBC 9.33 H (4.23-9.07) K/mm3 RBC 4.70 (4.63-6.08) M/mm3 Hgb 12.5 L (13.7-17.5) gm/dl Hct 41.6 (40.1-51.0) % MCV 88.5 D (79.0-92.2) fl MCH 26.6 (25.7-32.2) pg MCHC 30.0 L (32.2-35.5) g/dl RDW Std Deviation 46.7 H (35.1-43.9) fL Plt Count 159 L (163-337) K/mm3 MPV 11.0 (9.4-12.3) fl Neut % (Auto) 88.9 H (34.0-67.9) % Lymph % (Auto) 6.3 L (21.8-53.1) % [place] % (Auto) 4.2 L (5.3-12.2) % Eos % (Auto) 0.4 L (0.8-7.0) Baso % (Auto) 0.1 (0.1-1.2) % Neut # (Auto) 8.29 H (1.78-5.38) K/mm3 Lymph # (Auto) 0.59 L (1.32-3.57) K/mm3 [place] # (Auto) 0.39 (0.30-0.82) K/mm3 Eos # (Auto) 0.04 (0.04-0.54) K/mm3 Baso # (Auto) 0.01 (0.01-0.08) K/mm3 PT 11.4 (9.7-12.0) SECONDS INR 1.07 APTT 31.6 H (21.7-31.4) SECONDS Urine Color Yellow (Yellow) Urine Appearance Slt cloudy H (Clear) Urine pH 6.0 (5.0-8.0) Ur Specific [place] > or = 1.030 (1.005-1.030) Urine Protein 1+ H (Negative) Urine Glucose (UA) Negative (Negative) Urine Ketones Negative (Negative) Urine Occult Blood Negative (Negative) Urine Nitrite Positive H (Negative) Urine Bilirubin Negative (Negative) Urine Urobilinogen 0.2 (0.2-1.0) Ur Leukocyte Esterase 1+ H (Negative) Result Diagrams: 02/12/20 04:41 02/12/20 04:41 Sepsis Event Note - Evaluation Sepsis Screening Result: Possible Sepsis Risk Current Stage of Sepsis: Sepsis Possible Source of Sepsis: Pulmonary - Focused Exam Sepsis Event Note Statement: Focused Sepsis Exam Completed Vital Signs: Vital Signs Temp Pulse Resp BP Pulse Ox 02/11/20 16:13 37.8 C 110 H 20 101/64 80 L Respiratory Effort Without Exertion: Dyspneic Heart Sounds: Irregular Capillary Refill, Detail: Less than/Equal to (</=) 2 Seconds Pulse Description: 2+ Normal Peripheral Pulse Location: Radial Skin Exam (Focused Sepsis): Unremarkable - Bedside Monitoring Bedside Ultrasound Performed: No Passive Leg Raise/Fluid Bolus: Not Performed Date Bedside Monitoring was Performed: 02/12/20 Time Bedside Monitoring was Performed: 07:50 - Problem List (1) Sepsis SNOMED Code(s): 32515523 ICD Code: A41.9 - SEPSIS, UNSPECIFIED ORGANISM Status: Acute Priority: High Current Visit: Yes Qualifiers: Sepsis type: sepsis due to unspecified organism Sepsis acute organ dysfunction status: without acute organ dysfunction Qualified Code(s): A41.9 - Sepsis, unspecified organism (2) Pneumonia SNOMED Code(s): 156105753 ICD Code: J18.9 - PNEUMONIA, UNSPECIFIED ORGANISM Status: Acute Priority: High Current Visit: Yes Qualifiers: Pneumonia type: due to unspecified organism Laterality: left Lung location: lower lobe of lung Qualified Code(s): J18.9 - Pneumonia, unspecified organism (3) Urinary tract infection SNOMED Code(s): 49097704 ICD Code: N39.0 - URINARY TRACT INFECTION, SITE NOT SPECIFIED Status: Acute Priority: High Current Visit: Yes Qualifiers: Urinary tract infection type: site unspecified Hematuria presence: without hematuria Qualified Code(s): N39.0 - Urinary tract infection, site not specified (4) Anxiety SNOMED Code(s): 21469863 ICD Code: F41.9 - ANXIETY DISORDER, UNSPECIFIED Status: Chronic Priority: Medium Current Visit: No (5) Progressive supranuclear ophthalmoplegia SNOMED Code(s): 09845760 ICD Code: G23.1 - PROGRESSIVE SUPRANUCLEAR OPHTHALMOPLEGIA Status: Chronic Priority: Medium Current Visit: No (6) Swallowing impairment SNOMED Code(s): 089889937 ICD Code: R13.10 - DYSPHAGIA, UNSPECIFIED Status: Chronic Priority: Medium Current Visit: No (7) Wheelchair bound SNOMED Code(s): 778430142, 498967725 ICD Code: Z99.3 - DEPENDENCE ON WHEELCHAIR Status: Chronic Priority: Medium Current Visit: No Problem List Initiated/Reviewed/Updated: Yes Orders Last 24hrs: Active Orders 24 hr Category Date Time Status EKG Documentation Completion [RC] STAT Care 02/11/20 16:30 Active Chest 1V Frontal [CR] Stat Exams 02/11/20 16:28 Taken CBC WITH AUTO DIFF [HEME] Stat Lab 02/11/20 16:45 Results COMPREHENSIVE METABOLIC PN,CMP [CHEM] Stat Lab 02/11/20 16:45 Received COVID-19/FLU A+B [MOLEC] Stat Lab 02/11/20 16:53 Received CULTURE BLOOD [BC] Stat Lab 02/11/20 16:45 Received CULTURE BLOOD [BC] Stat Lab 02/11/20 16:55 Received CULTURE URINE [RM] Stat Lab 02/11/20 17:04 Received LACTATE SEPSIS W/ REFLEX [CHEM] Stat Lab 02/11/20 16:45 Received TROPONIN I [CHEM] Stat Lab 02/11/20 16:45 Received UA W/MICROSCOPIC [URIN] Stat Lab 02/11/20 17:04 Results Lactated Ringers [Ringers, Lactated] 1,000 ml Med 02/11/20 17:15 Active IV .BOLUS Sodium Chloride 0.9% [Normal Saline] 1,000 ml Med 02/11/20 17:23 Active IV ONETIME cefTRIAXone [Rocephin] 2 gm Med 02/11/20 17:30 Active Sodium Chloride 0.9% [Normal Saline] 100 ml IV Q24H Blood Culture x2 Reflex Set [OM.PC] Stat Oth 02/11/20 16:28 Ordered Isolation [COMM] Routine Oth 02/11/20 16:41 Ordered Medication Orders Lactated Ringer's (Ringers, Lactated) 1,000 mls @ 999 mls/hr IV .BOLUS ONE Stop: 02/11/20 18:15 Ceftriaxone Sodium 2 gm/ (Sodium Chloride) 100 mls @ 200 mls/hr IV Q24H JASPER Sodium Chloride (Normal Saline) 1,000 mls @ 999 mls/hr IV ONETIME ONE Stop: 02/11/20 18:23 Assessment/Plan Comment:: Patient is a chronically ill 64-year-old gentleman who has been admitted as an inpatient for left lower lobe pneumonia. The patient has been hospitalized 4 times this year. He also meets enough criteria for a diagnosis of sepsis. Because of the patient's bedridden status due to his neuromuscular disease I do not believe that his hypotension is indicative of septic shock. The patient has been started on Rocephin 2 g IV daily. The patient is also being gently resuscitated with fluid in order to avoid fluid overload. The patient is currently on normal saline at 75 mL/h. The patient's fluid balance will be monitored. The patient has a history of chronic pain and his fentanyl and home Dilaudid will be continued along with oxycodone as necessary to help his pain. The patient has said that he can use a walker and PT OT and speech therapy has been ordered to assess the patient's dysphagia and monitor for concern for aspiration. The patient is in a DO NOT INTUBATE DO NOT RESUSCITATE category due to his progressive neuromuscular disease. Blood and urine cultures have been obtained. He will also be kept on mechanical soft diet. Vital signs will be monitored very closely and oxygen will be given as necessary to keep his saturations around 90%. The patient should be appropriate for discharge back to correction in 2 to 3 days depending on his physical capacity. - Mortality Measure Prognosis:: Poor
--- NOTE | 2020-02-11 17:53 | CR ---
Chest: Frontal view of the chest was obtained. Comparison: Prior chest x-ray of 10/20/19 and prior chest x-ray of 09/24/19. Increased density is noted within the left lung base. Some of this is seen on prior study. Healing rib fractures are seen within the left lower chest. Right lung is clear. Heart size is poorly seen due to the left lower lobe density. Upper mediastinum is normal. Old fracture deformity is seen within the right clavicle. Impression: 1. Increased density within the left lung base. Uncertain how much of this is chronic versus new area of pneumonia. 2. Several healing rib fractures are seen within the left lower chest. 3. Chronic findings as noted above. Diagnostic code #3
[2020-02-11] MEDS ORDERED: Polyethylene Glycol 3350 Powder 17 GM Packet PO PRN (17:57)
[2020-02-11] MEDS ORDERED: Ondansetron 4 MG/2 ML SDV IV PRN (17:57)
[2020-02-11 18:21] LABS: CORONAVIRUS COVID-19 NAA NEGATIVE (NEGATIVE)
[2020-02-11] MEDS: Sodium Chloride 0.9% 1,000 ML IV SCH (19:12)
[2020-02-11] MEDS ORDERED: Benzonatate 100 MG Cap PO PRN (22:22)
[2020-02-11] MEDS: Sertraline 50 MG Tab PO SCH (23:57)
[2020-02-12] MEDS: Sertraline 50 MG Tab PO SCH ×2 (00:30→20:05)
[2020-02-12] MEDS: oxyCODONE 5 MG Tab PO PRN ×4 (00:30→22:45)
[2020-02-12] MEDS: HYDROmorphone 2 MG Tab PO PRN ×2 (02:36→20:05)
[2020-02-12] MEDS: LORazepam 1 MG Tab PO SCH ×2 (06:04→18:36)
--- NOTE | 2020-02-12 08:41 | PCM.PN ---
- General Info Date of Service: 02/12/20 Admission Dx/Problem (Free Text): Sepsis with pneumonia Subjective Update: Patient is a chronically ill 64-year-old gentleman who had been admitted by me yesterday due to left lower lobe pneumonia. 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 The patient's main concern is that his pain is worse today. The patient is also on a mechanical diet and he has not been tolerating his diet. Functional Status: Denies: Pain Controlled, Tolerating Diet - Review of Systems General: Reports: Weakness, Fatigue, Other (Severe muscle spasms) HEENT: Reports: No Symptoms Pulmonary: Reports: Shortness of Breath Cardiovascular: Reports: No Symptoms Gastrointestinal: Reports: No Symptoms Genitourinary: Reports: No Symptoms Musculoskeletal: Reports: Other (Generalized muscle pain) Skin: Reports: No Symptoms Neurological: Reports: Pre-Existing Deficit, Change in Speech (Slurred speech not new) Psychiatric: Reports: Depression - Patient Data Vitals - Most Recent: Last Vital Signs Temp 36.6 C 02/12/20 07:30 Pulse 82 02/12/20 07:30 Resp 13 02/12/20 08:00 BP 117/55 L 02/12/20 07:30 Pulse Ox 98 02/12/20 07:30 Weight - Most Recent: 75.251 kg I&O - Last 24 Hours: Intake & Output 02/11/20 02/12/20 02/12/20 22:59 06:59 14:59 Intake Total 1190 Balance 1190 Lab Results Last 24 Hours: Laboratory Results - last 24 hr 02/11/20 02/11/20 02/11/20 Range/Units 16:45 16:45 16:45 WBC 9.33 H (4.23-9.07) K/mm3 RBC 4.70 (4.63-6.08) M/mm3 Hgb 12.5 L (13.7-17.5) gm/dl Hct 41.6 (40.1-51.0) % MCV 88.5 D (79.0-92.2) fl MCH 26.6 (25.7-32.2) pg MCHC 30.0 L (32.2-35.5) g/dl RDW Std Deviation 46.7 H (35.1-43.9) fL Plt Count 159 L (163-337) K/mm3 MPV 11.0 (9.4-12.3) fl Neut % (Auto) 88.9 H (34.0-67.9) % Lymph % (Auto) 6.3 L (21.8-53.1) % [place] % (Auto) 4.2 L (5.3-12.2) % Eos % (Auto) 0.4 L (0.8-7.0) Baso % (Auto) 0.1 (0.1-1.2) % Neut # (Auto) 8.29 H (1.78-5.38) K/mm3 Lymph # (Auto) 0.59 L (1.32-3.57) K/mm3 [place] # (Auto) 0.39 (0.30-0.82) K/mm3 Eos # (Auto) 0.04 (0.04-0.54) K/mm3 Baso # (Auto) 0.01 (0.01-0.08) K/mm3 Manual Slide Review Abnormal smear PT 11.4 (9.7-12.0) SECONDS INR 1.07 APTT 31.6 H (21.7-31.4) SECONDS Sodium 140 (136-145) mEq/L Potassium 4.3 (3.5-5.1) mEq/L Chloride 103 (98-107) mEq/L Carbon Dioxide 31 (21-32) mEq/L Anion Gap 10.3 (5-15) BUN 18 (7-18) mg/dL Creatinine 1.0 (0.7-1.3) mg/dL Est Cr Clr Drug Dosing TNP Estimated GFR (MDRD) > 60 (>60) mL/min BUN/Creatinine Ratio 18.0 (14-18) Glucose 99 (80-115) mg/dL Lactic Acid (0.4-2.0) mmol/L Calcium 8.9 (8.5-10.1) mg/dL Total Bilirubin 0.6 (0.2-1.0) mg/dL AST 10 L (15-37) U/L ALT 6 L (16-63) U/L Alkaline Phosphatase 79 (46-116) U/L Troponin I < 0.017 (0.00-0.056) ng/mL C-Reactive Protein (<1.0) mg/dL Total Protein 6.8 (6.4-8.2) g/dl Albumin 3.1 L (3.4-5.0) g/dl Globulin 3.7 gm/dL Albumin/Globulin Ratio 0.8 L (1-2) Urine Color (Yellow) Urine Appearance (Clear) Urine pH (5.0-8.0) Ur Specific [place] (1.005-1.030) Urine Protein (Negative) Urine Glucose (UA) (Negative) Urine Ketones (Negative) Urine Occult Blood (Negative) Urine Nitrite (Negative) Urine Bilirubin (Negative) Urine Urobilinogen (0.2-1.0) Ur Leukocyte Esterase (Negative) Urine RBC (0-5) /hpf Urine WBC (0-5) /hpf Urine WBC Clumps (NOT SEEN) /hpf Ur Squamous Epith Cells (0-5) /hpf Urine Bacteria (FEW) /hpf Urine Mucus (FEW) /hpf Influenza Type A RNA (NEGATIVE) Influenza Type B RNA (NEGATIVE) SARS-CoV-2 RNA ([facility]) (NEGATIVE) 02/11/20 02/11/20 02/11/20 Range/Units 16:45 16:53 17:04 WBC (4.23-9.07) K/mm3 RBC (4.63-6.08) M/mm3 Hgb (13.7-17.5) gm/dl Hct (40.1-51.0) % MCV (79.0-92.2) fl MCH (25.7-32.2) pg MCHC (32.2-35.5) g/dl RDW Std Deviation (35.1-43.9) fL Plt Count (163-337) K/mm3 MPV (9.4-12.3) fl Neut % (Auto) (34.0-67.9) % Lymph % (Auto) (21.8-53.1) % [place] % (Auto) (5.3-12.2) % Eos % (Auto) (0.8-7.0) Baso % (Auto) (0.1-1.2) % Neut # (Auto) (1.78-5.38) K/mm3 Lymph # (Auto) (1.32-3.57) K/mm3 [place] # (Auto) (0.30-0.82) K/mm3 Eos # (Auto) (0.04-0.54) K/mm3 Baso # (Auto) (0.01-0.08) K/mm3 Manual Slide Review PT (9.7-12.0) SECONDS INR APTT (21.7-31.4) SECONDS Sodium (136-145) mEq/L Potassium (3.5-5.1) mEq/L Chloride (98-107) mEq/L Carbon Dioxide (21-32) mEq/L Anion Gap (5-15) BUN (7-18) mg/dL Creatinine (0.7-1.3) mg/dL Est Cr Clr Drug Dosing Estimated GFR (MDRD) (>60) mL/min BUN/Creatinine Ratio (14-18) Glucose (80-115) mg/dL Lactic Acid 1.5 (0.4-2.0) mmol/L Calcium (8.5-10.1) mg/dL Total Bilirubin (0.2-1.0) mg/dL AST (15-37) U/L ALT (16-63) U/L Alkaline Phosphatase (46-116) U/L Troponin I (0.00-0.056) ng/mL C-Reactive Protein (<1.0) mg/dL Total Protein (6.4-8.2) g/dl Albumin (3.4-5.0) g/dl Globulin gm/dL Albumin/Globulin Ratio (1-2) Urine Color Yellow (Yellow) Urine Appearance Slt cloudy H (Clear) Urine pH 6.0 (5.0-8.0) Ur Specific [place] > or = 1.030 (1.005-1.030) Urine Protein 1+ H (Negative) Urine Glucose (UA) Negative (Negative) Urine Ketones Negative (Negative) Urine Occult Blood Negative (Negative) Urine Nitrite Positive H (Negative) Urine Bilirubin Negative (Negative) Urine Urobilinogen 0.2 (0.2-1.0) Ur Leukocyte Esterase 1+ H (Negative) Urine RBC Not seen (0-5) /hpf Urine WBC 5-10 H (0-5) /hpf Urine WBC Clumps Few (NOT SEEN) /hpf Ur Squamous Epith Cells 5-10 H (0-5) /hpf Urine Bacteria Few (FEW) /hpf Urine Mucus Few (FEW) /hpf Influenza Type A RNA Negative (NEGATIVE) Influenza Type B RNA Negative (NEGATIVE) SARS-CoV-2 RNA ([place]) Negative (NEGATIVE) 02/12/20 02/12/20 Range/Units 04:41 04:41 WBC 11.59 H (4.23-9.07) K/mm3 RBC 4.12 L (4.63-6.08) M/mm3 Hgb 11.1 L (13.7-17.5) gm/dl Hct 36.6 L (40.1-51.0) % MCV 88.8 (79.0-92.2) fl MCH 26.9 (25.7-32.2) pg MCHC 30.3 L (32.2-35.5) g/dl RDW Std Deviation 45.7 H (35.1-43.9) fL Plt Count 167 (163-337) K/mm3 MPV 11.4 (9.4-12.3) fl Neut % (Auto) 87.5 H (34.0-67.9) % Lymph % (Auto) 7.2 L (21.8-53.1) % [place] % (Auto) 4.9 L (5.3-12.2) % Eos % (Auto) 0.2 L (0.8-7.0) Baso % (Auto) 0.1 (0.1-1.2) % Neut # (Auto) 10.15 H (1.78-5.38) K/mm3 Lymph # (Auto) 0.83 L (1.32-3.57) K/mm3 [place] # (Auto) 0.57 (0.30-0.82) K/mm3 Eos # (Auto) 0.02 L (0.04-0.54) K/mm3 Baso # (Auto) 0.01 (0.01-0.08) K/mm3 Manual Slide Review Abnormal smear PT (9.7-12.0) SECONDS INR APTT (21.7-31.4) SECONDS Sodium 141 (136-145) mEq/L Potassium 4.3 (3.5-5.1) mEq/L Chloride 105 (98-107) mEq/L Carbon Dioxide 30 (21-32) mEq/L Anion Gap 10.3 (5-15) BUN 16 (7-18) mg/dL Creatinine 0.7 (0.7-1.3) mg/dL Est Cr Clr Drug Dosing 116.46 Estimated GFR (MDRD) > 60 (>60) mL/min BUN/Creatinine Ratio 22.9 H (14-18) Glucose 93 (80-115) mg/dL Lactic Acid (0.4-2.0) mmol/L Calcium 8.4 L (8.5-10.1) mg/dL Total Bilirubin 0.7 (0.2-1.0) mg/dL AST 12 L (15-37) U/L ALT 11 L (16-63) U/L Alkaline Phosphatase 68 (46-116) U/L Troponin I (0.00-0.056) ng/mL C-Reactive Protein 16.1 H* (<1.0) mg/dL Total Protein 6.4 (6.4-8.2) g/dl Albumin 2.7 L (3.4-5.0) g/dl Globulin 3.7 gm/dL Albumin/Globulin Ratio 0.7 L (1-2) Urine Color (Yellow) Urine Appearance (Clear) Urine pH (5.0-8.0) Ur Specific [place] (1.005-1.030) Urine Protein (Negative) Urine Glucose (UA) (Negative) Urine Ketones (Negative) Urine Occult Blood (Negative) Urine Nitrite (Negative) Urine Bilirubin (Negative) Urine Urobilinogen (0.2-1.0) Ur Leukocyte Esterase (Negative) Urine RBC (0-5) /hpf Urine WBC (0-5) /hpf Urine WBC Clumps (NOT SEEN) /hpf Ur Squamous Epith Cells (0-5) /hpf Urine Bacteria (FEW) /hpf Urine Mucus (FEW) /hpf Influenza Type A RNA (NEGATIVE) Influenza Type B RNA (NEGATIVE) SARS-CoV-2 RNA ([place]) (NEGATIVE) Med Orders - Current: Current Medications Acetaminophen (Tylenol) 650 mg PO Q4H PRN PRN Reason: Pain (Mild 1-3)/fever Baclofen (Lioresal) 10 mg PO QID [facility] Benzonatate (Tessalon Perles) 100 mg PO TID PRN PRN Reason: Cough Buspirone HCl (Buspar) 15 mg PO BID [facility] Carbidopa/Levodopa (Sinemet 25-100 Mg) 1 tab PO QID [facility] Cyclobenzaprine HCl (Flexeril) 5 mg PO TID [facility] Enoxaparin Sodium (Lovenox) 40 mg SUBCUT DAILY [facility] Fentanyl (Duragesic) 75 mcg TRDERM Q72H [facility] Last Admin: 02/12/20 02:05 Dose: Not Given Documented by: Hydrochlorothiazide (Hydrochlorothiazide) 12.5 mg PO DAILY [facility] Hydromorphone HCl (Dilaudid) 2 mg PO Q6H PRN PRN Reason: Pain (severe 7-10) Last Admin: 02/12/20 02:36 Dose: 2 mg Documented by: Sodium Chloride (Normal Saline) 1,000 mls @ 75 mls/hr IV ASDIRECTED [facility] Last Admin: 02/11/20 19:12 Dose: 75 mls/hr Documented by: Ceftriaxone Sodium 2 gm/ (Sodium Chloride) 100 mls @ 200 mls/hr IV Q24H [facility] Lorazepam (Ativan) 0.5 mg PO BID [facility] Lorazepam (Ativan) 1 mg PO BID@07,19 [facility] Last Admin: 02/12/20 06:04 Dose: 1 mg Documented by: Losartan Potassium (Cozaar) 50 mg PO DAILY [facility] Magnesium Oxide (Magnesium Oxide) 400 mg PO BID [facility] Miscellaneous Information (Remove Patch) 1 ea TRDERM Q72H [facility] Last Admin: 02/12/20 02:05 Dose: Not Given Documented by: Escitalopram 20mg (Tab) 20 mg PO BEDTIME [facility] Ondansetron HCl (Zofran) 4 mg IV Q6H PRN PRN Reason: Nausea/Vomiting Oxycodone HCl (Oxycodone) 5 mg PO Q4H PRN PRN Reason: Pain (moderate 4-6) Last Admin: 02/12/20 00:30 Dose: 5 mg Documented by: Polyethylene Glycol (Miralax) 17 gm PO DAILY PRN PRN Reason: Constipation Sertraline HCl (Zoloft) 50 mg PO BEDTIME [facility] Last Admin: 02/12/20 00:30 Dose: 50 mg Documented by: Terazosin HCl (Hytrin) 5 mg PO BID [facility] Trazodone HCl (Trazodone) 150 mg PO BEDTIME [facility] Discontinued Medications Lactated Ringer's (Ringers, Lactated) 1,000 mls @ 999 mls/hr IV .BOLUS ONE Stop: 02/11/20 18:15 Last Admin: 02/11/20 17:15 Dose: 999 mls/hr Documented by: Ceftriaxone Sodium 2 gm/ (Sodium Chloride) 100 mls @ 200 mls/hr IV Q24H [facility] Last Admin: 02/11/20 17:39 Dose: 200 mls/hr Documented by: Sodium Chloride (Normal Saline) 1,000 mls @ 999 mls/hr IV ONETIME ONE Stop: 02/11/20 18:23 Last Admin: 02/11/20 17:40 Dose: 999 mls/hr Documented by: - Exam Quality Assessment: No: Supplemental Oxygen General: Alert, Oriented, Moderate Distress, Other (Slurred speech) HEENT: Pupils Equal, Pupils Reactive Neck: Supple, Trachea Midline Lungs: Decreased Breath Sounds, Crackles, Rales Cardiovascular: Regular Rate, Regular Rhythm GI/Abdominal Exam: Normal Bowel Sounds, Soft, Non-Tender, No Distention (Male) Exam: Deferred Back Exam: Normal Inspection Extremities: No Pedal Edema. No: Normal Inspection, Normal Range of Motion (Contractures due to muscle spasms noted in arms, legs.) Skin: Warm, Dry, Intact Neurological: No New Focal Deficit Psy/Mental Status: Depressed Sepsis Event Note - Evaluation Sepsis Screening Result: No Definite Risk - Focused Exam Vital Signs: Vital Signs Temp Pulse Resp BP Pulse Ox Pulse Ox 02/12/20 08:00 13 02/12/20 07:30 36.6 C 82 15 117/55 L 98 02/12/20 07:00 14 02/12/20 06:00 14 02/12/20 05:00 10 L 02/12/20 04:28 36.8 C 97 18 129/60 94 L 02/12/20 03:26 96 02/12/20 00:00 18 02/11/20 22:54 36.8 C 69 16 83/64 L 97 - Problem List & Annotations (1) Sepsis SNOMED Code(s): 03072202 Code(s): A41.9 - SEPSIS, UNSPECIFIED ORGANISM Status: Acute Priority: High Current Visit: Yes Qualifiers: Sepsis type: sepsis due to unspecified organism Sepsis acute organ dysfunction status: without acute organ dysfunction Qualified Code(s): A41.9 - Sepsis, unspecified organism (2) Pneumonia SNOMED Code(s): 458445177 Code(s): J18.9 - PNEUMONIA, UNSPECIFIED ORGANISM Status: Acute Priority: High Current Visit: Yes Qualifiers: Pneumonia type: due to unspecified organism Laterality: left Lung locatio n: lower lobe of lung Qualified Code(s): J18.9 - Pneumonia, unspecified organism (3) Urinary tract infection SNOMED Code(s): 62384658 Code(s): N39.0 - URINARY TRACT INFECTION, SITE NOT SPECIFIED Status: Acute Priority: High Current Visit: Yes Qualifiers: Urinary tract infection type: site unspecified Hematuria presence: without hematuria Qualified Code(s): N39.0 - Urinary tract infection, site not specified (4) Anxiety SNOMED Code(s): 21980575 Code(s): F41.9 - ANXIETY DISORDER, UNSPECIFIED Status: Chronic Priority: Medium Current Visit: No (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): 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.1 - PROGRESSIVE SUPRANUCLEAR OPHTHALMOPLEGIA Status: Chronic Priority: Medium Current Visit: No (6) Swallowing impairment SNOMED Code(s): 846595800 Code(s): R13.10 - DYSPHAGIA, UNSPECIFIED Status: Chronic Priority: Medium Current Visit: No (7) Wheelchair bound SNOMED Code(s): 476600922, 331382568 Code(s): Z99.3 - DEPENDENCE ON WHEELCHAIR Status: Chronic Priority: Medium Current Visit: No - Problem List Review Problem List Initiated/Reviewed/Updated: Yes - My Orders Last 24 Hours: My Active Orders 02/11/20 09:00 Remove Patch 1 ea TRDERM Q72H fentaNYL [Duragesic] 75 mcg TRDERM Q72H 02/11/20 17:57 Bedrest Bedside Commode [RC] ASDIRECTED Oxygen Therapy [RC] PRN VTE/DVT Education [RC] PER UNIT ROUTINE Vital Signs [RC] Q4HR OT Evaluation and Treatment [CONS] Routine PT Evaluation and Treatment [CONS] Routine [employer] Evaluation and Treatment [CONS] Routine Acetaminophen [TylenoL] 650 mg PO Q4H PRN Ondansetron [Zofran] 4 mg IV Q6H PRN oxyCODONE 5 mg PO Q4H PRN polyethylene glycoL 3350 [MiraLAX] 17 gm PO DAILY PRN VTE Mechanical Contraindications [AST] Per Unit Routine Resuscitation Status Routine 02/11/20 17:59 Cardiac Monitoring [RC] CONTINUOUS 02/11/20 18:00 Sodium Chloride 0.9% [Normal Saline] 1,000 ml IV ASDIRECTED 02/11/20 19:00 Patient Status [ADT] Routine 02/11/20 22:22 Benzonatate [Tessalon Perles] 100 mg PO TID PRN HYDROmorphone [Dilaudid] 2 mg PO Q6H PRN 02/11/20 23:30 Sertraline [Zoloft] 50 mg PO BEDTIME 02/12/20 Breakfast Mechanical Soft Diet [DIET] LORazepam [Ativan] 1 mg PO BID@,02/12/20 09:00 Baclofen [Lioresal] 10 mg PO QID Carbidopa/Levodopa [Sinemet 25-100 mg] 1 tab PO QID Cyclobenzaprine [Flexeril] 5 mg PO TID Enoxaparin [Lovenox] 40 mg SUBCUT DAILY LORazepam [Ativan] 0.5 mg PO BID Losartan [Cozaar] 50 mg PO DAILY Magnesium Oxide 400 mg PO BID Terazosin [Hytrin] 5 mg PO BID busPIRone [Buspar] 15 mg PO BID hydroCHLOROthiazide 12.5 mg PO DAILY 02/12/20 18:00 cefTRIAXone [Rocephin] 2 gm Sodium Chloride 0.9% [Normal Saline] 100 ml IV Q24H 02/12/20 21:00 Escitalopram 20 mg PO BEDTIME traZODone 150 mg PO BEDTIME - Plan Plan:: Patient is a chronically ill 64-year-old gentleman who has been admitted as an inpatient for left lower lobe pneumonia. The patient has been hospitalized 4 times this year. He also meets enough criteria for a diagnosis of sepsis. Because of the patient's bedridden status due to his neuromuscular disease I do not believe that his hypotension is indicative of septic shock. The patient has been started on Rocephin 2 g IV daily. The patient is also being gently resuscitated with fluid in order to avoid fluid overload. The patient is currently on normal saline at 75 mL/h. The patient's fluid balance will be monitored. The patient has a history of chronic pain and his fentanyl and home Dilaudid will be continued along with oxycodone as necessary to help his pain. The patient has said that he can use a walker and PT OT and speech therapy has been ordered to assess the patient's dysphagia and monitor for concern for aspiration. The patient is in a DO NOT INTUBATE DO NOT RESUSCITATE category due to his progressive neuromuscular disease. Blood and urine cultures have been obtained. He will also be kept on mechanical soft diet. Vital signs will be monitored very closely and oxygen will be given as necessary to keep his saturations around 90%. The patient should be appropriate for discharge back to skilled nursing in 2 to 3 days depending on his physical capacity. 02/12/2020 The patient is a chronically ill 64-year-old gentleman who is currently undergoing treatment for sepsis secondary to pneumonia. The patient is currently on ceftriaxone 2 g IV on a daily basis and this should also help with the patient's suspected urinary tract infection. Cultures are currently pending. The patient's antibiotics will be deescalated when causative organism is i dentified. The patient is still pending speech evaluation for his dysphagia. Have placed the patient on a mechanical soft diet. Physical therapy and Occupational Therapy are currently pending. The patient will also be continued on his chronic pain medications as he does have significant spasticity. I have ordered repeat laboratory studies for the morning. The patient is currently in a DO NOT INTUBATE/DO NOT RESUSCITATE category. The patient is also somewhat bedridden and debilitated and I do not think he has been able to maintain his blood pressures due to his neuromuscular disease. This does not represent septic shock. The patient should be appropriate to return to skilled nursing once his pneumonia and sepsis has resolved.
[2020-02-12] MEDS: Cyclobenzaprine 10 MG Tab PO SCH ×3 (08:59→20:05)
[2020-02-12] MEDS: Losartan 25 MG Tab PO SCH (09:00)
[2020-02-12] MEDS: Enoxaparin 40 MG/0.4 ML Syringe SUBCUT SCH (09:06)
[2020-02-12] MEDS: busPIRone 15 MG Tab PO SCH ×2 (09:07→20:05)
[2020-02-12] MEDS: Hydrochlorothiazide 12.5 MG Cap PO SCH (09:08)
[2020-02-12] MEDS: Magnesium Oxide 400 MG Tab PO SCH ×2 (09:08→20:05)
[2020-02-12] MEDS: LORazepam 0.5 MG Tab PO SCH ×2 (09:08→20:06)
[2020-02-12] MEDS: Baclofen 10 MG Tab PO SCH ×4 (09:08→20:06)
[2020-02-12] MEDS: Terazosin 5 MG Cap PO SCH ×2 (09:09→20:06)
[2020-02-12] MEDS: Sodium Chloride 0.9% 1,000 ML IV SCH ×2 (09:09→22:11)
[2020-02-12] MEDS: Carbidopa/Levodopa 25-100 MG Tab PO SCH ×4 (11:47→20:06)
[2020-02-12] MEDS: cefTRIAXone 2 GM in Sodium Chloride 0.9% 100 ML IV SCH (17:45)
[2020-02-12] MEDS: traZODone 50 MG Tab PO SCH (20:06)
[2020-02-13] MEDS: HYDROmorphone 2 MG Tab PO PRN ×4 (02:21→19:58)
[2020-02-13] MEDS: oxyCODONE 5 MG Tab PO PRN ×4 (05:05→23:16)
[2020-02-13] MEDS: LORazepam 1 MG Tab PO SCH ×2 (06:15→18:16)
[2020-02-13] MEDS: Terazosin 5 MG Cap PO SCH ×2 (08:09→20:01)
[2020-02-13] MEDS: Carbidopa/Levodopa 25-100 MG Tab PO SCH ×4 (08:09→19:59)
[2020-02-13] MEDS: Losartan 25 MG Tab PO SCH (08:10)
[2020-02-13] MEDS: LORazepam 0.5 MG Tab PO SCH ×2 (08:10→19:59)
[2020-02-13] MEDS: Baclofen 10 MG Tab PO SCH ×4 (08:11→19:59)
[2020-02-13] MEDS: busPIRone 15 MG Tab PO SCH ×2 (08:11→19:59)
[2020-02-13] MEDS: Enoxaparin 40 MG/0.4 ML Syringe SUBCUT SCH (08:12)
[2020-02-13] MEDS: Magnesium Oxide 400 MG Tab PO SCH ×2 (08:12→20:00)
[2020-02-13] MEDS: Hydrochlorothiazide 12.5 MG Cap PO SCH (08:12)
[2020-02-13] MEDS: Cyclobenzaprine 10 MG Tab PO SCH ×3 (08:12→20:00)
[2020-02-13] MEDS ORDERED: fentaNYL 75 MCG/HR Transdermal Patch TRDERM SCH ×2 (09:00)
--- NOTE | 2020-02-13 10:09 | PCM.PN ---
- General Info Date of Service: 02/13/20 Admission Dx/Problem (Free Text): Sepsis with pneumonia Subjective Update: The patient is a chronically ill 64-year-old gentleman who was admitted to hospitalization on February 11, 2020 due to left lower lobe pneumonia. 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 The patient says that his pain is not well controlled. The patient has been tolerating his diet. He has no other complaints at the present time. The patient speech is still very slurred to his neuromuscular disease. Functional Status: Reports: Tolerating Diet. Denies: Pain Controlled - Review of Systems General: Reports: Weakness, Fatigue HEENT: Reports: No Symptoms Pulmonary: Reports: No Symptoms Cardiovascular: Reports: No Symptoms Gastrointestinal: Reports: No Symptoms Genitourinary: Reports: No Symptoms Musculoskeletal: Reports: Shoulder Pain Skin: Reports: No Symptoms Neurological: Reports: Pre-Existing Deficit, Gait Disturbance Psychiatric: Reports: No Symptoms - Patient Data Vitals - Most Recent: Last Vital Signs Temp 36.7 C 02/13/20 04:44 Pulse 72 02/13/20 04:44 Resp 16 02/13/20 04:44 BP 147/75 H 02/13/20 08:10 Pulse Ox 97 02/13/20 04:44 Weight - Most Recent: 74.026 kg I&O - Last 24 Hours: Intake & Output 02/12/20 02/13/20 02/13/20 22:59 06:59 14:59 Intake Total 1445 1421 Output Total 700 Balance 745 1421 Lab Results Last 24 Hours: Laboratory Results - last 24 hr 02/13/20 02/13/20 Range/Units 04:45 04:45 WBC 6.66 (4.23-9.07) K/mm3 RBC 3.85 L (4.63-6.08) M/mm3 Hgb 10.9 L (13.7-17.5) gm/dl Hct 33.0 L (40.1-51.0) % MCV 85.7 D (79.0-92.2) fl MCH 28.3 (25.7-32.2) pg MCHC 33.0 (32.2-35.5) g/dl RDW Std Deviation 42.7 (35.1-43.9) fL Plt Count 180 (163-337) K/mm3 MPV 11.0 (9.4-12.3) fl Neut % (Auto) 71.6 H (34.0-67.9) % Lymph % (Auto) 16.5 L (21.8-53.1) % [place] % (Auto) 9.6 (5.3-12.2) % Eos % (Auto) 2.1 (0.8-7.0) Baso % (Auto) 0.2 (0.1-1.2) % Neut # (Auto) 4.77 (1.78-5.38) K/mm3 Lymph # (Auto) 1.10 L (1.32-3.57) K/mm3 [place] # (Auto) 0.64 (0.30-0.82) K/mm3 Eos # (Auto) 0.14 (0.04-0.54) K/mm3 Baso # (Auto) 0.01 (0.01-0.08) K/mm3 Sodium 144 (136-145) mEq/L Potassium 3.8 (3.5-5.1) mEq/L Chloride 106 (98-107) mEq/L Carbon Dioxide 31 (21-32) mEq/L Anion Gap 10.8 (5-15) BUN 8 (7-18) mg/dL Creatinine 0.6 L (0.7-1.3) mg/dL Est Cr Clr Drug Dosing 135.87 mL/min Estimated GFR (MDRD) > 60 (>60) mL/min BUN/Creatinine Ratio 13.3 L (14-18) Glucose 76 L (80-115) mg/dL Calcium 8.6 (8.5-10.1) mg/dL Magnesium 1.6 L (1.8-2.4) mg/dl Total Bilirubin 0.5 (0.2-1.0) mg/dL AST 17 (15-37) U/L ALT 10 L (16-63) U/L Alkaline Phosphatase 63 (46-116) U/L C-Reactive Protein 15.4 H* (<1.0) mg/dL Total Protein 5.9 L (6.4-8.2) g/dl Albumin 2.5 L (3.4-5.0) g/dl Globulin 3.4 gm/dL Albumin/Globulin Ratio 0.7 L (1-2) Rommel Results Last 24 Hours: Microbiology 02/11/20 16:55 Aerobic Blood Culture - Preliminary Blood - Venous NO GROWTH AFTER 1 DAY Anaerobic Blood Culture - Preliminary NO GROWTH AFTER 1 DAY 02/11/20 16:45 Aerobic Blood Culture - Preliminary Blood - Venous - Lab Draw NO GROWTH AFTER 1 DAY Anaerobic Blood Culture - Preliminary NO GROWTH AFTER 1 DAY 02/11/20 17:04 Urine Culture - Preliminary Urine, Clean Catch Gram Negative Rods Med Orders - Current: Current Medications Acetaminophen (Tylenol) 650 mg PO Q4H PRN PRN Reason: Pain (Mild 1-3)/fever Baclofen (Lioresal) 10 mg PO QID [facility] Last Admin: 02/13/20 08:11 Dose: 10 mg Documented by: Benzonatate (Tessalon Perles) 100 mg PO TID PRN PRN Reason: Cough Buspirone HCl (Buspar) 15 mg PO BID [facility] Last Admin: 02/13/20 08:11 Dose: 15 mg Documented by: Carbidopa/Levodopa (Sinemet 25-100 Mg) 1 tab PO QID [facility] Last Admin: 02/13/20 08:09 Dose: 1 tab Documented by: Cyclobenzaprine HCl (Flexeril) 5 mg PO TID [facility] Last Admin: 02/13/20 08:12 Dose: 5 mg Documented by: Enoxaparin Sodium (Lovenox) 40 mg SUBCUT DAILY [facility] Last Admin: 02/13/20 08:12 Dose: 40 mg Documented by: Fentanyl (Duragesic) 100 mcg TRDERM Q72H [facility] Hydrochlorothiazide (Hydrochlorothiazide) 12.5 mg PO DAILY [facility] Last Admin: 02/13/20 08:12 Dose: 12.5 mg Documented by: Hydromorphone HCl (Dilaudid) 2 mg PO Q4H PRN PRN Reason: Pain (severe 7-10) Sodium Chloride (Normal Saline) 1,000 mls @ 75 mls/hr IV ASDIRECTED [facility] Last Admin: 02/12/20 22:11 Dose: 75 mls/hr Documented by: Ceftriaxone Sodium 2 gm/ (Sodium Chloride) 100 mls @ 200 mls/hr IV Q24H [facility] Last Admin: 02/12/20 17:45 Dose: 200 mls/hr Documented by: Lorazepam (Ativan) 0.5 mg PO BID [facility] Last Admin: 02/13/20 08:10 Dose: 0.5 mg Documented by: Lorazepam (Ativan) 1 mg PO BID@,19 [facility] Last Admin: 02/13/20 06:15 Dose: 1 mg Documented by: Losartan Potassium (Cozaar) 50 mg PO DAILY [facility] Last Admin: 02/13/20 08:10 Dose: 50 mg Documented by: Magnesium Oxide (Magnesium Oxide) 400 mg PO BID [facility] Last Admin: 02/13/20 08:12 Dose: 400 mg Documented by: Miscellaneous Information (Remove Patch) 1 ea TRDERM Q72H [facility] Last Admin: 02/13/20 08:40 Dose: 1 ea Documented by: Ondansetron HCl (Zofran) 4 mg IV Q6H PRN PRN Reason: Nausea/Vomiting Oxycodone HCl (Oxycodone) 5 mg PO Q4H PRN PRN Reason: Pain (moderate 4-6) Last Admin: 02/13/20 05:05 Dose: 5 mg Documented by: Polyethylene Glycol (Miralax) 17 gm PO DAILY PRN PRN Reason: Constipation Sertraline HCl (Zoloft) 50 mg PO BEDTIME [facility] Last Admin: 02/12/20 20:05 Dose: 50 mg Documented by: Terazosin HCl (Hytrin) 5 mg PO BID [facility] Last Admin: 02/13/20 08:09 Dose: 5 mg Documented by: Trazodone HCl (Trazodone) 150 mg PO BEDTIME [facility] Last Admin: 02/12/20 20:06 Dose: 150 mg Documented by: Discontinued Medications Fentanyl (Duragesic) 75 mcg TRDERM Q72H [facility] Last Admin: 02/12/20 02:05 Dose: Not Given Documented by: Fentanyl (Duragesic) 75 mcg TRDERM Q72H [facility] Last Admin: 02/13/20 08:33 Dose: 75 mcg Documented by: Hydromorphone HCl (Dilaudid) 2 mg PO Q6H PRN PRN Reason: Pain (severe 7-10) Last Admin: 02/13/20 08:31 Dose: 2 mg Documented by: Lactated Ringer's (Ringers, Lactated) 1,000 mls @ 999 mls/hr IV .BOLUS ONE Stop: 02/11/20 18:15 Last Admin: 02/11/20 17:15 Dose: 999 mls/hr Documented by: Ceftriaxone Sodium 2 gm/ (Sodium Chloride) 100 mls @ 200 mls/hr IV Q24H [facility] Last Admin: 02/11/20 17:39 Dose: 200 mls/hr Documented by: Sodium Chloride (Normal Saline) 1,000 mls @ 999 mls/hr IV ONETIME ONE Stop: 02/11/20 18:23 Last Admin: 02/11/20 17:40 Dose: 999 mls/hr Documented by: Magnesium Sulfate/Dextrose 1 (gm/ Premix) 100 mls @ 100 mls/hr IV ONETIME ONE Stop: 02/13/20 08:08 Last Admin: 02/13/20 08:00 Dose: 100 mls/hr Documented by: Miscellaneous Information (Remove Patch) 1 ea TRDERM Q72H [facility] Last Admin: 02/12/20 02:05 Dose: Not Given Documented by: - Exam Quality Assessment: DVT Prophylaxis. No: Supplemental Oxygen General: Alert, Oriented, Moderate Distress HEENT: Pupils Equal, Pupils Reactive, EOMI. No: Mucous Membr. Moist/[place] (Dry) Neck: Supple, Trachea Midline Lungs: Clear to Auscultation, Normal Respiratory Effort Cardiovascular: Regular Rate, Regular Rhythm GI/Abdominal Exam: Normal Bowel Sounds, Soft, No Distention (Male) Exam: Deferred Back Exam: No: Normal Inspection (Spasms of back muscles) Extremities: No: Normal Inspection (Spastic contractions of arms and legs) Skin: Warm, Dry, Intact Neurological: No New Focal Deficit. No: Normal Speech Psy/Mental Status: Alert, Normal Affect Sepsis Event Note - Evaluation Sepsis Screening Result: No Definite Risk - Focused Exam Vital Signs: Vital Signs Temp Pulse Resp BP Pulse Ox Pulse Ox 02/13/20 08:10 147/75 H 02/13/20 08:09 147/75 H 02/13/20 04:44 36.7 C 72 16 124/75 97 02/13/20 04:43 9 L 02/13/20 04:00 9 L 02/13/20 03:00 11 L 02/13/20 02:03 20 02/13/20 01:35 36.6 C 92 22 H 151/77 H 97 02/12/20 22:25 96 - Problem List & Annotations (1) Sepsis SNOMED Code(s): 88319681 Code(s): A41.9 - SEPSIS, UNSPECIFIED ORGANISM Status: Acute Priority: High Current Visit: Yes Qualifiers: Sepsis type: sepsis due to unspecified organism Sepsis acute organ dysfunction status: without acute organ dysfunction Qualified Code(s): A41.9 - Sepsis, unspecified organism (2) Pneumonia SNOMED Code(s): 977319107 Code(s): J18.9 - PNEUMONIA, UNSPECIFIED ORGANISM Status: Acute Priority: High Current Visit: Yes Qualifiers: Pneumonia type: due to unspecified organism Laterality: left Lung location: lower lobe of lung Qualified Code(s): J18.9 - Pneumonia, unspecified organism (3) Urinary tract infection SNOMED Code(s): 69808335 Code(s): N39.0 - URINARY TRACT INFECTION, SITE NOT SPECIFIED Status: Acute Priority: High Current Visit: Yes Qualifiers: Urinary tract infection type: site unspecified Hematuria presence: without hematuria Qualified Code(s): N39.0 - Urinary tract infection, site not specified (4) Anxiety SNOMED Code(s): 77786436 Code(s): F41.9 - ANXIETY DISORDER, UNSPECIFIED Status: Chronic Priority: Medium Current Visit: No (5) Progressive supranuclear ophthalmoplegia SNOMED Code(s): 92172509 Code(s): G23.1 - PROGRESSIVE SUPRANUCLEAR OPHTHALMOPLEGIA Status: Chronic Priority: Medium Current Visit: No (6) Swallowing impairment SNOMED Code(s): 353145932 Code(s): R13.10 - DYSPHAGIA, UNSPECIFIED Status: Chronic Priority: Medium Current Visit: No (7) Wheelchair bound SNOMED Code(s): 108963925, 041274683 Code(s): Z99.3 - DEPENDENCE ON WHEELCHAIR Status: Chronic Priority: Medium Current Visit: No - Problem List Review Problem List Initiated/Reviewed/Updated: Yes - My Orders Last 24 Hours: My Active Orders 02/12/20 18:00 cefTRIAXone [Rocephin] 2 gm Sodium Chloride 0.9% [Normal Saline] 100 ml IV Q24H 02/12/20 20:01 Up With Assistance [RC] ASDIRECTED 02/12/20 21:00 traZODone 150 mg PO BEDTIME 02/13/20 09:00 Remove Patch 1 ea TRDERM Q72H 02/13/20 10:08 HYDROmorphone [Dilaudid] 2 mg PO Q4H PRN 02/13/20 10:15 fentaNYL [Duragesic] 100 mcg TRDERM Q72H - Plan Plan:: Patient is a chronically ill 64-year-old gentleman who has been admitted as an inpatient for left lower lobe pneumonia. The patient has been hospitalized 4 times this year. He also meets enough criteria for a diagnosis of sepsis. Because of the patient's bedridden status due to his neuromuscular disease I do not believe that his hypotension is indicative of septic shock. The patient has been started on Rocephin 2 g IV daily. The patient is also being gently resuscitated with fluid in order to avoid fluid overload. The patient is currently on normal saline at 75 mL/h. The patient's fluid balance will be mon itored. The patient has a history of chronic pain and his fentanyl and home Dilaudid will be continued along with oxycodone as necessary to help his pain. The patient has said that he can use a walker and PT OT and speech therapy has been ordered to assess the patient's dysphagia and monitor for concern for aspiration. The patient is in a DO NOT INTUBATE DO NOT RESUSCITATE category due to his progressive neuromuscular disease. Blood and urine cultures have been obtained. He will also be kept on mechanical soft diet. Vital signs will be monitored very closely and oxygen will be given as necessary to keep his saturations around 90%. The patient should be appropriate for discharge back to [facility] in 2 to 3 days depending on his physical capacity. 02/12/2020 The patient is a chronically ill 64-year-old gentleman who is currently undergoing treatment for sepsis secondary to pneumonia. The patient is currently on ceftriaxone 2 g IV on a daily basis and this should also help with the patient's suspected urinary tract infection. Cultures are currently pending. The patient's antibiotics will be deescalated when causative organism is identified. The patient is still pending speech evaluation for his dysphagia. Have placed the patient on a mechanical soft diet. Physical therapy and Occupational Therapy are currently pending. The patient will also be continued on his chronic pain medications as he does have significant spasticity. I have ordered repeat laboratory studies for the morning. The patient is currently in a DO NOT INTUBATE/DO NOT RESUSCITATE category. The patient is also somewhat bedridden and debilitated and I do not think he has been able to maintain his blood pressures due to his neuromuscular disease. This does not represent septic shock. The patient should be appropriate to return to [facility] once his pneumonia and sepsis has resolved. 02/13/2020 The patient is a 64-year-old gentleman who is currently undergoing sepsis treatment secondary to his pneumonia. The patient's current antibiotics, Rocephin 2 g IV daily, will continue and his fluids will also continue. The patient has had some improvement in his overall condition except he is still having considerable pain associated with the spasticity. I have increased the patient's fentanyl from 75 mcg to 100 mcg patch. I have also increased the patient's use of Dilaudid from 2 mg IV every 6 hours to every 4 hours. The patient is pending evaluation for dysphagia. For now the patient will continue on his mechanical diet which was previously noted at the [facility]. Physical therapy and occupational therapy will continue. I have ordered repeat laboratory studies for the morning. The patient should be appropriate to return to his [facility] once the pneumonia and sepsis has resolved.
[2020-02-13] MEDS ORDERED: fentaNYL 100 MCG/HR Transdermal Patch TRDERM SCH (10:30)
[2020-02-13] MEDS: cefTRIAXone 2 GM in Sodium Chloride 0.9% 100 ML IV SCH (17:08)
[2020-02-13] MEDS: Acetaminophen 325 MG Tab PO PRN (17:20)
[2020-02-13] MEDS: Sertraline 50 MG Tab PO SCH (20:00)
[2020-02-13] MEDS: traZODone 50 MG Tab PO SCH (20:01)
[2020-02-14] MEDS: Sodium Chloride 0.9% 1,000 ML IV SCH ×2 (01:12→16:35)
[2020-02-14] MEDS: oxyCODONE 5 MG Tab PO PRN ×4 (04:02→20:21)
[2020-02-14] MEDS: LORazepam 1 MG Tab PO SCH ×2 (08:01→18:33)
[2020-02-14] MEDS: Baclofen 10 MG Tab PO SCH ×4 (08:02→20:21)
[2020-02-14] MEDS: Carbidopa/Levodopa 25-100 MG Tab PO SCH ×4 (08:02→20:21)
[2020-02-14] MEDS: Cyclobenzaprine 10 MG Tab PO SCH ×3 (08:03→20:20)
[2020-02-14] MEDS: busPIRone 15 MG Tab PO SCH ×2 (08:03→20:21)
[2020-02-14] MEDS: Magnesium Oxide 400 MG Tab PO SCH ×2 (08:03→20:21)
[2020-02-14] MEDS: Enoxaparin 40 MG/0.4 ML Syringe SUBCUT SCH (08:04)
[2020-02-14] MEDS: Hydrochlorothiazide 12.5 MG Cap PO SCH (08:05)
[2020-02-14] MEDS: Terazosin 5 MG Cap PO SCH ×2 (08:05→20:19)
[2020-02-14] MEDS: HYDROmorphone 2 MG Tab PO PRN ×3 (08:05→18:35)
[2020-02-14] MEDS: Losartan 25 MG Tab PO SCH (08:06)
[2020-02-14] MEDS ORDERED: GUAIFENESIN 400 MG PO PRN (08:57)
[2020-02-14] MEDS ORDERED: Magnesium Sulfate/Water 4 GM in Premix Bag 1 BAG IV ONE (08:57)
[2020-02-14] MEDS ORDERED: Ondansetron 4 MG Tab.DIS PO PRN (08:57)
--- NOTE | 2020-02-14 09:00 | PCM.PN ---
- General Info Date of Service: 02/14/20 Admission Dx/Problem (Free Text): Sepsis with pneumonia Subjective Update: Alan is doing well. His magnesium is a little low today, his white count is down to normal. Urine is growing Pseudomonas. Functional Status: Denies: Pain Controlled - Review of Systems General: Reports: No Symptoms HEENT: Reports: No Symptoms Pulmonary: Reports: No Symptoms Cardiovascular: Reports: No Symptoms Gastrointestinal: Reports: No Symptoms Musculoskeletal: Reports: Neck Pain, Back Pain - Patient Data Vitals - Most Recent: Last Vital Signs Temp 97.9 F 02/14/20 04:01 Pulse 81 02/14/20 04:01 Resp 13 02/14/20 08:00 BP 120/80 02/14/20 08:06 Pulse Ox 100 02/14/20 04:01 Weight - Most Recent: 158 lb 9.6 oz I&O - Last 24 Hours: Intake & Output 02/13/20 02/14/20 02/14/20 22:59 06:59 14:59 Intake Total 1100 1300 Output Total 975 600 Balance 125 700 [place] Results Last 24 Hours: Microbiology 02/11/20 16:55 Aerobic Blood Culture - Preliminary Blood - Venous NO GROWTH AFTER 2 DAYS Anaerobic Blood Culture - Preliminary NO GROWTH AFTER 2 DAYS 02/11/20 16:45 Aerobic Blood Culture - Preliminary Blood - Venous - Lab Draw NO GROWTH AFTER 2 DAYS Anaerobic Blood Culture - Preliminary NO GROWTH AFTER 2 DAYS 02/11/20 17:04 Urine Culture - Final Urine, Clean Catch Pseudomonas Aeruginosa Med Orders - Current: Current Medications Acetaminophen (Tylenol) 650 mg PO Q4H PRN PRN Reason: Pain (Mild 1-3)/fever Last Admin: 02/13/20 17:20 Dose: 650 mg Documented by: Baclofen (Lioresal) 10 mg PO QID [facility] Last Admin: 02/14/20 08:02 Dose: 10 mg Documented by: Benzonatate (Tessalon Perles) 100 mg PO TID PRN PRN Reason: Cough Buspirone HCl (Buspar) 15 mg PO BID [facility] Last Admin: 02/14/20 08:03 Dose: 15 mg Documented by: Carbidopa/Levodopa (Sinemet 25-100 Mg) 1 tab PO QID [facility] Last Admin: 02/14/20 08:02 Dose: 1 tab Documented by: Cyclobenzaprine HCl (Flexeril) 5 mg PO TID [facility] Last Admin: 02/14/20 08:03 Dose: 5 mg Documented by: Enoxaparin Sodium (Lovenox) 40 mg SUBCUT DAILY [facility] Last Admin: 02/14/20 08:04 Dose: 40 mg Documented by: Fentanyl (Duragesic) 100 mcg TRDERM Q72H [facility] Last Admin: 02/13/20 12:26 Dose: 100 mcg Documented by: Gabapentin (Neurontin) 200 mg PO TID [facility] Guaifenesin (Mucinex) 600 mg PO BID [facility] Hydrochlorothiazide (Hydrochlorothiazide) 12.5 mg PO DAILY [facility] Last Admin: 02/14/20 08:05 Dose: 12.5 mg Documented by: Hydromorphone HCl (Dilaudid) 2 mg PO Q4H PRN PRN Reason: Pain (severe 7-10) Last Admin: 02/14/20 08:05 Dose: 2 mg Documented by: Sodium Chloride (Normal Saline) 1,000 mls @ 75 mls/hr IV ASDIRECTED [facility] Last Admin: 02/14/20 01:12 Dose: 75 mls/hr Documented by: Ceftriaxone Sodium 2 gm/ (Sodium Chloride) 100 mls @ 200 mls/hr IV Q24H [facility] Last Admin: 02/13/20 17:08 Dose: 200 mls/hr Documented by: Magnesium Sulfate 4 gm/ Premix 50 mls @ 12.5 mls/hr IV ONETIME ONE Stop: 02/14/20 12:56 Lorazepam (Ativan) 1 mg PO BID@07,19 [facility] Last Admin: 02/14/20 08:01 Dose: 1 mg Documented by: Lorazepam (Ativan) 0.5 mg PO BID@1200,1600 [facility] Losartan Potassium (Cozaar) 50 mg PO DAILY [facility] Last Admin: 02/14/20 08:06 Dose: 50 mg Documented by: Magnesium Oxide (Magnesium Oxide) 400 mg PO BID [facility] Last Admin: 02/14/20 08:03 Dose: 400 mg Documented by: Miscellaneous Information (Remove Patch) 1 ea TRDERM Q72H [facility] Non-Formulary Medication (Guaifenesin) 400 mg PO Q4H PRN PRN Reason: Cough Non-Formulary Medication (Lactulose [Kristalose]) 20 gm PO DAILY PRN PRN Reason: Constipation Non-Formulary Medication (Trolamine Salicylate/Aloe Vera) 2 gm TP Q4H PRN PRN Reason: Pain (mild 1-3) Ondansetron HCl (Zofran) 4 mg IV Q6H PRN PRN Reason: Nausea/Vomiting Ondansetron HCl (Zofran Odt) 4 mg PO Q6H PRN PRN Reason: nausea, able to take PO Oxycodone HCl (Oxycodone) 5 mg PO Q4H PRN PRN Reason: Pain (moderate 4-6) Last Admin: 02/14/20 04:02 Dose: 5 mg Documented by: Polyethylene Glycol (Miralax) 17 gm PO DAILY PRN PRN Reason: Constipation Polyethylene Glycol (Miralax) 17 gm PO DAILY [facility] Senna/Docusate Sodium (Senna Plus) 1 tab PO DAILY [facility] Sertraline HCl (Zoloft) 50 mg PO BEDTIME [facility] Last Admin: 02/13/20 20:00 Dose: 50 mg Documented by: Simvastatin (Zocor) 20 mg PO BEDTIME [facility] Terazosin HCl (Hytrin) 5 mg PO BID [facility] Last Admin: 02/14/20 08:05 Dose: 5 mg Documented by: Trazodone HCl (Trazodone) 150 mg PO BEDTIME [facility] Last Admin: 02/13/20 20:01 Dose: 150 mg Documented by: Discontinued Medications Fentanyl (Duragesic) 75 mcg TRDERM Q72H [facility] Last Admin: 02/12/20 02:05 Dose: Not Given Documented by: Fentanyl (Duragesic) 75 mcg TRDERM Q72H [facility] Last Admin: 02/13/20 08:33 Dose: 75 mcg Documented by: Hydromorphone HCl (Dilaudid) 2 mg PO Q6H PRN PRN Reason: Pain (severe 7-10) Last Admin: 02/13/20 08:31 Dose: 2 mg Documented by: Lactated Ringer's (Ringers, Lactated) 1,000 mls @ 999 mls/hr IV .BOLUS ONE Stop: 02/11/20 18:15 Last Admin: 02/11/20 17:15 Dose: 999 mls/hr Documented by: Ceftriaxone Sodium 2 gm/ (Sodium Chloride) 100 mls @ 200 mls/hr IV Q24H [facility] Last Admin: 12/25/20 17:39 Dose: 200 mls/hr Documented by: Sodium Chloride (Normal Saline) 1,000 mls @ 999 mls/hr IV ONETIME ONE Stop: 02/11/20 18:23 Last Admin: 02/11/20 17:40 Dose: 999 mls/hr Documented by: Magnesium Sulfate/Dextrose 1 (gm/ Premix) 100 mls @ 100 mls/hr IV ONETIME ONE Stop: 02/13/20 08:08 Last Admin: 02/13/20 08:00 Dose: 100 mls/hr Documented by: Lorazepam (Ativan) 0.5 mg PO BID [facility] Last Admin: 02/13/20 19:59 Dose: 0.5 mg Documented by: Miscellaneous Information (Remove Patch) 1 ea TRDERM Q72H [facility] Last Admin: 02/12/20 02:05 Dose: Not Given Documented by: Miscellaneous Information (Remove Patch) 1 ea TRDERM Q72H [facility] Last Admin: 02/13/20 08:40 Dose: 1 ea Documented by: - Exam Quality Assessment: No: Supplemental Oxygen General: Alert HEENT: Pupils Equal, Mucous Membr. Moist/[place] Neck: Supple Lungs: Normal Respiratory Effort, Rales (Mild bibasilar) Cardiovascular: Regular Rate, Regular Rhythm GI/Abdominal Exam: Normal Bowel Sounds, Soft, Non-Tender, No Organomegaly, No Distention, No Abnormal Bruit Extremities: No Pedal Edema, Normal Capillary Refill Sepsis Event Note - Evaluation Sepsis Screening Result: No Definite Risk - Focused Exam Vital Signs: Vital Signs Temp Pulse Resp BP Pulse Ox 02/14/20 08:06 120/80 02/14/20 08:05 120/80 02/14/20 08:00 13 02/14/20 07:00 9 L 02/14/20 06:00 13 02/14/20 05:00 13 02/14/20 04:20 36 H 02/14/20 04:01 97.9 F 81 14 128/80 100 02/13/20 23:53 16 02/13/20 23:14 97.9 F 73 9 L 120/79 97 02/13/20 22:00 12 - Problem List & Annotations (1) Pneumonia SNOMED Code(s): 962778886 Code(s): J18.9 - PNEUMONIA, UNSPECIFIED ORGANISM Status: Acute Priority: High Current Visit: Yes Qualifiers: Pneumonia type: due to unspecified organism Laterality: left Lung location: lower lobe of lung Qualified Code(s): J18.9 - Pneumonia, unspecified organism (2) Urinary tract infection SNOMED Code(s): 57287034 Code(s): N39.0 - URINARY TRACT INFECTION, SITE NOT SPECIFIED Status: Acute Priority: High Current Visit: Yes Qualifiers: Urinary tract infection type: site unspecified Hematuria presence: without hematuria Qualified Code(s): N39.0 - Urinary tract infection, site not specified - Problem List Review Problem List Initiated/Reviewed/Updated: Yes - My Orders Last 24 Hours: My Active Orders 02/14/20 08:57 Magnesium Sulfate/Water [Magnesium Sulfate in Water Premix] 4 gm Premix Bag 1 bag IV ONETIME Ondansetron [Zofran ODT] 4 mg PO Q6H PRN 02/14/20 08:57 Lactulose [Kristalose] 20 gm PO DAILY PRN Trolamine Salicylate/Aloe Vera 2 gm TP Q4H PRN guaiFENesin 400 mg PO Q4H PRN 02/14/20 09:00 Docusate Sodium/Sennosides [Senna Plus] 1 tab PO DAILY Gabapentin [Neurontin] 200 mg PO TID guaiFENesin [Mucinex] 600 mg PO BID polyethylene glycoL 3350 [MiraLAX] 17 gm PO DAILY 02/14/20 21:00 Simvastatin [Zocor] 20 mg PO BEDTIME - Plan Plan:: Patient is a chronically ill 64-year-old gentleman who has been admitted as an inpatient for left lower lobe pneumonia. The patient has been hospitalized 4 times this year. He also meets enough criteria for a diagnosis of sepsis. Because of the patient's bedridden status due to his neuromuscular disease I do not believe that his hypotension is indicative of septic shock. The patient has been started on Rocephin 2 g IV daily. The patient is also being gently resuscitated with fluid in order to avoid fluid overload. The patient is currently on normal saline at 75 mL/h. The patient's fluid balance will be monitored. The patient has a history of chronic pain and his fentanyl and home Dilaudid will be continued along with oxycodone as necessary to help his pain. The patient has said that he can use a walker and PT OT and speech therapy has been ordered to assess the patient's dysphagia and monitor for concern for aspiration. The patient is in a DO NOT INTUBATE DO NOT RESUSCITATE category due to his progressive neuromuscular disease. Blood and urine cultures have been obtained. He will also be kept on mechanical soft diet. Vital signs will be monitored very closely and oxygen will be given as necessary to keep his saturations around 90%. The patient should be appropriate for discharge back to care home in 2 to 3 days depending on his physical capacity. 02/12/2020 The patient is a chronically ill 64-year-old gentleman who is currently undergoing treatment for sepsis secondary to pneumonia. The patient is currently on ceftriaxone 2 g IV on a daily basis and this should also help with the patient's suspected urinary tract infection. Cultures are currently pending. The patient's antibiotics will be deescalated when causative organism is identified. The patient is still pending speech evaluation for his dysphagia. Have placed the patient on a mechanical soft diet. Physical therapy and Occupational Therapy are currently pending. The patient will also be continued on his chronic pain medications as he does have significant spasticity. I have ordered repeat laboratory studies for the morning. The patient is currently in a DO NOT INTUBATE/DO NOT RESUSCITATE category. The patient is also somewhat bedridden and debilitated and I do not think he has been able to maintain his blood pressures due to his neuromuscular disease. This does not represent septic shock. The patient should be appropriate to return to care home once his pneumonia and sepsis has resolved. 02/13/2020 The patient is a 64-year-old gentleman who is currently undergoing sepsis treatment secondary to his pneumonia. The patient's current antibiotics, Rocephin 2 g IV daily, will continue and his fluids will also continue. The patient has had some improvement in his overall condition except he is still having considerable pain associated with the spasticity. I have increased the patient's fentanyl from 75 mcg to 100 mcg patch. I have also increased the patient's use of Dilaudid from 2 mg IV every 6 hours to every 4 hours. The pat ient is pending evaluation for dysphagia. For now the patient will continue on his mechanical diet which was previously noted at the care home. Physical therapy and occupational therapy will continue. I have ordered repeat laboratory studies for the morning. The patient should be appropriate to return to his care home once the pneumonia and sepsis has resolved. 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 Unknown if UTI played a role in his sepsis, therefore we will continue to treat both his pneumonia and UTI. Unfortunately, he is currently on Rocephin and that will not cover Pseudomonas in his urine. He will be switched over to Zosyn to cover his Pseudomonas. Patient will also be given 4 g of magnesium for his low magnesium levels of 1.6. CRP continues to be elevated at 15.4 but he has a normal white count. No anion gap. Appetite is satisfactory as well as his daily intake. Patient continues with significant pain. When I went in his room this morning his fentanyl patch which was switched to 100 mcg today had fallen off. He was given more oxycodone and new patch was to be placed. Patient will likely discharge in 4-5 more days.
[2020-02-14] MEDS ORDERED: Lactulose Soln 10 GM/15 ML 30 ML UD Cup PO PRN (09:02)
[2020-02-14] MEDS: Gabapentin 100 MG Cap PO SCH ×3 (09:47→20:19)
[2020-02-14] MEDS: guaiFENesin 600 MG Tab.ER PO SCH ×2 (09:48→20:21)
[2020-02-14] MEDS: Polyethylene Glycol 3350 Powder 17 GM Packet PO SCH (09:50)
[2020-02-14] MEDS: fentaNYL 100 MCG/HR Transdermal Patch TRDERM SCH (10:34)
[2020-02-14] MEDS ORDERED: Piperacillin/Tazobactam 4.5 GM in Sodium Chloride 0.9% 100 ML IV ONE (11:30)
[2020-02-14] MEDS: LORazepam 0.5 MG Tab PO SCH ×2 (12:26→15:10)
[2020-02-14] MEDS: Piperacillin/Tazobactam 4.5 GM in Sodium Chloride 0.9% 100 ML IV SCH (18:32)
[2020-02-14] MEDS: Simvastatin 20 MG Tab PO SCH (20:20)
[2020-02-14] MEDS: traZODone 50 MG Tab PO SCH (20:20)
[2020-02-14] MEDS: Sertraline 50 MG Tab PO SCH (20:21)
[2020-02-15] MEDS: oxyCODONE 5 MG Tab PO PRN ×3 (03:17→17:17)
[2020-02-15] MEDS: Piperacillin/Tazobactam 4.5 GM in Sodium Chloride 0.9% 100 ML IV SCH ×3 (03:18→18:56)
[2020-02-15] MEDS: Sodium Chloride 0.9% 1,000 ML IV SCH ×2 (06:31→23:08)
[2020-02-15] MEDS: HYDROmorphone 2 MG Tab PO PRN ×2 (06:32→18:56)
[2020-02-15] MEDS: LORazepam 1 MG Tab PO SCH ×2 (06:32→18:56)
[2020-02-15] MEDS: Terazosin 5 MG Cap PO SCH ×2 (08:13→20:04)
[2020-02-15] MEDS: Losartan 25 MG Tab PO SCH (08:13)
[2020-02-15] MEDS: Magnesium Oxide 400 MG Tab PO SCH ×2 (08:14→20:04)
[2020-02-15] MEDS: Cyclobenzaprine 10 MG Tab PO SCH ×3 (08:14→20:04)
[2020-02-15] MEDS: Gabapentin 100 MG Cap PO SCH ×3 (08:14→20:04)
[2020-02-15] MEDS: Baclofen 10 MG Tab PO SCH ×4 (08:15→20:04)
[2020-02-15] MEDS: busPIRone 15 MG Tab PO SCH ×2 (08:15→20:04)
[2020-02-15] MEDS: Hydrochlorothiazide 12.5 MG Cap PO SCH (08:15)
[2020-02-15] MEDS: guaiFENesin 600 MG Tab.ER PO SCH ×2 (08:15→20:04)
[2020-02-15] MEDS: Enoxaparin 40 MG/0.4 ML Syringe SUBCUT SCH (08:16)
[2020-02-15] MEDS: Carbidopa/Levodopa 25-100 MG Tab PO SCH ×4 (08:16→20:05)
[2020-02-15] MEDS: Polyethylene Glycol 3350 Powder 17 GM Packet PO SCH (11:28)
[2020-02-15] MEDS: LORazepam 0.5 MG Tab PO SCH ×2 (12:20→17:18)
--- NOTE | 2020-02-15 13:06 | PCM.PN ---
- General Info Date of Service: 02/15/20 Admission Dx/Problem (Free Text): Sepsis with pneumonia Subjective Update: Patient has no new complaints. He is complaining of left arm pain which appears to be in the biceps region. Denies any trauma. Functional Status: Denies: Pain Controlled - Review of Systems General: Reports: No Symptoms HEENT: Reports: No Symptoms Pulmonary: Reports: No Symptoms Cardiovascular: Reports: No Symptoms Gastrointestinal: Reports: No Symptoms Musculoskeletal: Reports: Arm Pain - Patient Data Vitals - Most Recent: Last Vital Signs Temp 97.5 F 02/15/20 11:13 Pulse 77 02/15/20 11:13 Resp 18 02/15/20 11:13 BP 125/85 02/15/20 11:13 Pulse Ox 95 02/15/20 11:13 Weight - Most Recent: 161 lb 14.4 oz I&O - Last 24 Hours: Intake & Output 02/14/20 02/15/20 02/15/20 22:59 06:59 14:59 Intake Total 1800 1432 200 Output Total 600 Balance 1200 1432 200 Lab Results Last 24 Hours: Laboratory Results - last 24 hr 02/15/20 02/15/20 Range/Units 10:10 10:10 WBC 4.80 (4.23-9.07) K/mm3 RBC 4.24 L (4.63-6.08) M/mm3 Hgb 11.7 L (13.7-17.5) gm/dl Hct 36.5 L (40.1-51.0) % MCV 86.1 (79.0-92.2) fl MCH 27.6 (25.7-32.2) pg MCHC 32.1 L (32.2-35.5) g/dl RDW Std Deviation 42.1 (35.1-43.9) fL Plt Count 183 (163-337) K/mm3 MPV 10.3 (9.4-12.3) fl Neut % (Auto) 71.7 H (34.0-67.9) % Lymph % (Auto) 17.9 L (21.8-53.1) % [place] % (Auto) 7.5 (5.3-12.2) % Eos % (Auto) 2.3 (0.8-7.0) Baso % (Auto) 0.4 (0.1-1.2) % Neut # (Auto) 3.44 (1.78-5.38) K/mm3 Lymph # (Auto) 0.86 L (1.32-3.57) K/mm3 [place] # (Auto) 0.36 (0.30-0.82) K/mm3 Eos # (Auto) 0.11 (0.04-0.54) K/mm3 Baso # (Auto) 0.02 (0.01-0.08) K/mm3 Sodium 139 (136-145) mEq/L Potassium 3.7 (3.5-5.1) mEq/L Chloride 104 (98-107) mEq/L Carbon Dioxide 28 (21-32) mEq/L Anion Gap 10.7 (5-15) BUN 6 L (7-18) mg/dL Creatinine 0.7 (0.7-1.3) mg/dL Est Cr Clr Drug Dosing 113.65 mL/min Estimated GFR (MDRD) > 60 (>60) mL/min BUN/Creatinine Ratio 8.6 L (14-18) Glucose 128 H (80-115) mg/dL Calcium 8.5 (8.5-10.1) mg/dL Phosphorus 3.5 (2.6-4.7) mg/dL Magnesium 1.7 L (1.8-2.4) mg/dl Total Bilirubin 0.6 (0.2-1.0) mg/dL AST 11 L (15-37) U/L ALT 7 L (16-63) U/L Alkaline Phosphatase 68 (46-116) U/L Total Protein 6.4 (6.4-8.2) g/dl Albumin 2.7 L (3.4-5.0) g/dl Globulin 3.7 gm/dL Albumin/Globulin Ratio 0.7 L (1-2) [place] Results Last 24 Hours: Microbiology 02/11/20 16:55 Aerobic Blood Culture - Preliminary Blood - Venous NO GROWTH AFTER 3 DAYS Anaerobic Blood Culture - Preliminary NO GROWTH AFTER 3 DAYS 02/11/20 16:45 Aerobic Blood Culture - Preliminary Blood - Venous - Lab Draw NO GROWTH AFTER 3 DAYS Anaerobic Blood Culture - Preliminary NO GROWTH AFTER 3 DAYS Med Orders - Current: Current Medications Acetaminophen (Tylenol) 650 mg PO Q4H PRN PRN Reason: Pain (Mild 1-3)/fever Last Admin: 02/13/20 17:20 Dose: 650 mg Documented by: Baclofen (Lioresal) 10 mg PO QID [facility] Last Admin: 02/15/20 12:18 Dose: 10 mg Documented by: Benzonatate (Tessalon Perles) 100 mg PO TID PRN PRN Reason: Cough Buspirone HCl (Buspar) 15 mg PO BID [facility] Last Admin: 02/15/20 08:15 Dose: 15 mg Documented by: Carbidopa/Levodopa (Sinemet 25-100 Mg) 1 tab PO QID [facility] Last Admin: 02/15/20 12:21 Dose: 1 tab Documented by: Cyclobenzaprine HCl (Flexeril) 5 mg PO TID [facility] Last Admin: 02/15/20 08:14 Dose: 5 mg Documented by: Enoxaparin Sodium (Lovenox) 40 mg SUBCUT DAILY [facility] Last Admin: 02/15/20 08:16 Dose: 40 mg Documented by: Fentanyl (Duragesic) 100 mcg TRDERM Q72H [facility] Last Admin: 02/14/20 10:34 Dose: 100 mcg Documented by: Gabapentin (Neurontin) 200 mg PO TID [facility] Last Admin: 02/15/20 08:14 Dose: 200 mg Documented by: Guaifenesin (Mucinex) 600 mg PO BID [facility] Last Admin: 02/15/20 08:15 Dose: 600 mg Documented by: Hydrochlorothiazide (Hydrochlorothiazide) 12.5 mg PO DAILY [facility] Last Admin: 02/15/20 08:15 Dose: 12.5 mg Documented by: Hydromorphone HCl (Dilaudid) 2 mg PO Q4H PRN PRN Reason: Pain (severe 7-10) Last Admin: 02/15/20 06:32 Dose: 2 mg Documented by: Sodium Chloride (Normal Saline) 1,000 mls @ 75 mls/hr IV ASDIRECTED [facility] Last Admin: 02/15/20 06:31 Dose: 75 mls/hr Documented by: Piperacillin Sod/Tazobactam (Sod 4.5 gm/ Sodium Chloride) 100 mls @ 25 mls/hr IV Q8H [facility] Last Admin: 02/15/20 12:22 Dose: 25 mls/hr Documented by: Magnesium Sulfate 2 gm/ Premix 50 mls @ 25 mls/hr IV ONETIME ONE Stop: 02/15/20 14:57 Lactulose (Cephulac) 20 gm PO DAILY PRN PRN Reason: Constipation Last Admin: 02/14/20 09:45 Dose: 20 gm Documented by: Lorazepam (Ativan) 1 mg PO BID@07,19 [facility] Last Admin: 02/15/20 06:32 Dose: 1 mg Documented by: Lorazepam (Ativan) 0.5 mg PO BID@1200,1600 [facility] Last Admin: 02/15/20 12:20 Dose: 0.5 mg Documented by: Losartan Potassium (Cozaar) 50 mg PO DAILY [facility] Last Admin: 02/15/20 08:13 Dose: 50 mg Documented by: Magnesium Oxide (Magnesium Oxide) 400 mg PO BID [facility] Last Admin: 02/15/20 08:14 Dose: 400 mg Documented by: Miscellaneous Information (Remove Patch) 1 ea TRDERM Q72H [facility] Ondansetron HCl (Zofran) 4 mg IV Q6H PRN PRN Reason: Nausea/Vomiting Ondansetron HCl (Zofran Odt) 4 mg PO Q6H PRN PRN Reason: nausea, able to take PO Oxycodone HCl (Oxycodone) 5 mg PO Q4H PRN PRN Reason: Pain (moderate 4-6) Last Admin: 02/15/20 12:18 Dose: 5 mg Documented by: Polyethylene Glycol (Miralax) 17 gm PO DAILY PRN PRN Reason: Constipation Last Admin: 02/15/20 08:19 Dose: 17 gm Documented by: Polyethylene Glycol (Miralax) 17 gm PO DAILY [facility] Last Admin: 02/15/20 11:28 Dose: Not Given Documented by: Senna/Docusate Sodium (Senna Plus) 1 tab PO DAILY [facility] Last Admin: 02/15/20 08:15 Dose: 1 tab Documented by: Sertraline HCl (Zoloft) 50 mg PO BEDTIME [facility] Last Admin: 02/14/20 20:21 Dose: 50 mg Documented by: Simvastatin (Zocor) 20 mg PO BEDTIME [facility] Last Admin: 02/14/20 20:20 Dose: 20 mg Documented by: Terazosin HCl (Hytrin) 5 mg PO BID [facility] Last Admin: 02/15/20 08:13 Dose: 5 mg Documented by: Trazodone HCl (Trazodone) 150 mg PO BEDTIME [facility] Last Admin: 02/14/20 20:20 Dose: 150 mg Documented by: Trolamine Salicylate (Aspercreme 10%) 0 gm TOP Q4H PRN PRN Reason: Pain (mild 1-3) Discontinued Medications Fentanyl (Duragesic) 75 mcg TRDERM Q72H [facility] Last Admin: 02/12/20 02:05 Dose: Not Given Documented by: Fentanyl (Duragesic) 75 mcg TRDERM Q72H [facility] Last Admin: 02/13/20 08:33 Dose: 75 mcg Documented by: Fentanyl (Duragesic) 100 mcg TRDERM Q72H [facility] Last Admin: 02/13/20 12:26 Dose: 100 mcg Documented by: Hydromorphone HCl (Dilaudid) 2 mg PO Q6H PRN PRN Reason: Pain (severe 7-10) Last Admin: 02/13/20 08:31 Dose: 2 mg Documented by: Lactated Ringer's (Ringers, Lactated) 1,000 mls @ 999 mls/hr IV .BOLUS ONE Stop: 02/11/20 18:15 Last Admin: 02/11/20 17:15 Dose: 999 mls/hr Documented by: Ceftriaxone Sodium 2 gm/ (Sodium Chloride) 100 mls @ 200 mls/hr IV Q24H [facility] Last Admin: 02/11/20 17:39 Dose: 200 mls/hr Documented by: Sodium Chloride (Normal Saline) 1,000 mls @ 999 mls/hr IV ONETIME ONE Stop: 02/11/20 18:23 Last Admin: 02/11/20 17:40 Dose: 999 mls/hr Documented by: Ceftriaxone Sodium 2 gm/ (Sodium Chloride) 100 mls @ 200 mls/hr IV Q24H [facility] Last Admin: 02/13/20 17:08 Dose: 200 mls/hr Documented by: Magnesium Sulfate/Dextrose 1 (gm/ Premix) 100 mls @ 100 mls/hr IV ONETIME ONE Stop: 02/13/20 08:08 Last Admin: 02/13/20 08:00 Dose: 100 mls/hr Documented by: Magnesium Sulfate 4 gm/ Premix 50 mls @ 12.5 mls/hr IV ONETIME ONE Stop: 02/14/20 12:56 Last Admin: 02/14/20 09:51 Dose: 12.5 mls/hr Documented by: Piperacillin Sod/Tazobactam (Sod 4.5 gm/ Sodium Chloride) 100 mls @ 200 mls/hr IV ONETIME ONE Stop: 02/14/20 11:59 Last Admin: 02/14/20 12:14 Dose: 200 mls/hr Documented by: Lorazepam (Ativan) 0.5 mg PO BID [facility] Last Admin: 02/13/20 19:59 Dose: 0.5 mg Documented by: Miscellaneous Information (Remove Patch) 1 ea TRDERM Q72H [facility] Last Admin: 02/12/20 02:05 Dose: Not Given Documented by: Miscellaneous Information (Remove Patch) 1 ea TRDERM Q72H [facility] Last Admin: 02/13/20 08:40 Dose: 1 ea Documented by: Non-Formulary Medication (Guaifenesin) 400 mg PO Q4H PRN PRN Reason: Cough - Exam Quality Assessment: No: Supplemental Oxygen General: Alert HEENT: Pupils Equal, Mucous Membr. Moist/Clio Neck: Supple Lungs: Clear to Auscultation, Normal Respiratory Effort Cardiovascular: Regular Rate, Regular Rhythm GI/Abdominal Exam: Normal Bowel Sounds, Soft, Non-Tender, No Organomegaly, No Distention, No Abnormal Bruit Extremities: Normal Inspection, Normal Range of Motion, No Pedal Edema, Normal Capillary Refill, Arm Pain (Left biceps and biceps tendon) Skin: Warm, Dry, Intact Sepsis Event Note - Evaluation Sepsis Screening Result: No Definite Risk - Focused Exam Vital Signs: Vital Signs Temp Pulse Resp BP Pulse Ox 02/15/20 11:13 97.5 F 77 18 125/85 95 02/15/20 09:00 12 02/15/20 08:13 131/79 02/15/20 07:47 98.4 F 95 131/79 92 L 02/15/20 03:06 97.5 F 61 10 L 136/67 97 02/15/20 03:00 13 02/15/20 02:00 11 L - Problem List & Annotations (1) Pneumonia SNOMED Code(s): 882585982 Code(s): J18.9 - PNEUMONIA, UNSPECIFIED ORGANISM Status: Acute Priority: High Current Visit: Yes Qualifiers: Pneumonia type: due to unspecified organism Laterality: left Lung location: lower lobe of lung Qualified Code(s): J18.9 - Pneumonia, unspecified organism (2) Urinary tract infection SNOMED Code(s): 04030289 Code(s): N39.0 - URINARY TRACT INFECTION, SITE NOT SPECIFIED Status: Acute Priority: High Current Visit: Yes Qualifiers: Urinary tract infection type: site unspecified Hematuria presence: without hematuria Qualified Code(s): N39.0 - Urinary tract infection, site not specified - Problem List Review Problem List Initiated/Reviewed/Updated: Yes - My Orders Last 24 Hours: My Active Orders 02/14/20 19:30 Piperacillin/Tazobactam [Piperacil-Tazobact] 4.5 gm Sodium Chloride 0.9% [Normal Saline] 100 ml IV Q8H 02/14/20 21:00 Simvastatin [Zocor] 20 mg PO BEDTIME 02/15/20 10:51 Cooling Warming Measures [RC] ASDIRECTED K Pad [Heat Therapy] [OM.PC] Routine 02/15/20 12:58 Magnesium Sulfate/Water [Magnesium Sulfate in Water Premix] 2 gm Premix Bag 1 bag IV ONETIME - Plan Plan:: Patient is a chronically ill 64-year-old gentleman who has been admitted as an inpatient for left lower lobe pneumonia. The patient has been hospitalized 4 times this year. He also meets enough criteria for a diagnosis of sepsis. Because of the patient's bedridden status due to his neuromuscular disease I do not believe that his hypotension is indicative of septic shock. The patient has been started on Rocephin 2 g IV daily. The patient is also being gently resuscitated with fluid in order to avoid fluid overload. The patient is currently on normal saline at 75 mL/h. The patient's fluid balance will be monitored. The patient has a history of chronic pain and his fentanyl and home Dilaudid will be continued along with oxycodone as necessary to help his pain. The patient has said that he can use a walker and PT OT and speech therapy has been ordered to assess the patient's dysphagia and monitor for concern for aspiration. The patient is in a DO NOT INTUBATE DO NOT RESUSCITATE category due to his progressive neuromuscular disease. Blood and urine cultures have been obtained. He will also be kept on mechanical soft diet. Vital signs will be monitored very closely and oxygen will be given as necessary to keep his saturations around 90%. The patient should be appropriate for discharge back to snf in 2 to 3 days depending on his physical capacity. 02/12/2020 The patient is a chronically ill 64-year-old gentleman who is currently undergoing treatment for sepsis secondary to pneumonia. The patient is currently on ceftriaxone 2 g IV on a daily basis and this should also help with the patient's suspected urinary tract infection. Cultures are currently pending. The patient's antibiotics will be deescalated when causative organism is identified. The patient is still pending speech evaluation for his dysphagia. Have placed the patient on a mechanical soft diet. Physical therapy and Occupational Therapy are currently pending. The patient will also be continued on his chronic pain medications as he does have significant spasticity. I have ordered repeat laboratory studies for the morning. The patient is currently in a DO NOT INTUBATE/DO NOT RESUSCITATE category. The patient is also somewhat bedridden and debilitated and I do not think he has been able to maintain his blood pressures due to his neuromuscular disease. This does not represent septic shock. The patient should be appropriate to return to snf once his pneumonia and sepsis has resolved. 02/13/2020 The patient is a 64-year-old gentleman who is currently undergoing sepsis tr eatment secondary to his pneumonia. The patient's current antibiotics, Rocephin 2 g IV daily, will continue and his fluids will also continue. The patient has had some improvement in his overall condition except he is still having considerable pain associated with the spasticity. I have increased the patient's fentanyl from 75 mcg to 100 mcg patch. I have also increased the patient's use of Dilaudid from 2 mg IV every 6 hours to every 4 hours. The patient is pending evaluation for dysphagia. For now the patient will continue on his mechanical diet which was previously noted at the snf. Physical therapy and occupational therapy will continue. I have ordered repeat laboratory studies for the morning. The patient should be appropriate to return to his snf once the pneumonia and sepsis has resolved. 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 Unknown if UTI played a role in his sepsis, therefore we will continue to treat both his pneumonia and UTI. Unfortunately, he is currently on Rocephin and that will not cover Pseudomonas in his urine. He will be switched over to Zosyn to cover his Pseudomonas. Patient will also be given 4 g of magnesium for his low magnesium levels of 1.6. CRP continues to be elevated at 15.4 but he has a normal white count. No anion gap. Appetite is satisfactory as well as his daily intake. Patient continues with significant pain. When I went in his room this morning his fentanyl patch which was switched to 100 mcg today had fallen off. He was given more oxycodone and new patch was to be placed. Patient will likely discharge in 4-5 more days. 02/15/2020 64-year-old male with chronic spasticity complaining of left upper arm pain today. This appears to be musculoskeletal most likely the long head of the bicep tendon. Patient does have physical therapy consulted. Infection seems to be improving with lowering of his white count. Magnesium is slightly decreased and he will get another 2 g of magnesium. Patient will complete at least 5 days of IV antibiotics for his urinary tract infection that was positive for Pseudomonas which is resistant to levofloxacin but sensitive to Zosyn. Zosyn was started yesterday. Patient should have another 3 to 4 days of IV antibiotics.
[2020-02-15] MEDS ORDERED: Magnesium Sulfate/Water 2 GM in Premix Bag 1 BAG IV ONE (13:30)
[2020-02-15] MEDS ORDERED: Magnesium Sulfate/Water 2 GM/50 ML BAG ONE (13:39)
[2020-02-15] MEDS: traZODone 50 MG Tab PO SCH (20:04)
[2020-02-15] MEDS: Simvastatin 20 MG Tab PO SCH (20:04)
[2020-02-15] MEDS: Sertraline 50 MG Tab PO SCH (20:05)
[2020-02-16] MEDS: oxyCODONE 5 MG Tab PO PRN ×4 (00:45→20:14)
[2020-02-16] MEDS: Acetaminophen 325 MG Tab PO PRN (00:45)
[2020-02-16] MEDS: Piperacillin/Tazobactam 4.5 GM in Sodium Chloride 0.9% 100 ML IV SCH ×3 (03:33→18:55)
[2020-02-16] MEDS: LORazepam 1 MG Tab PO SCH ×2 (06:20→18:52)
--- NOTE | 2020-02-16 07:58 | PCM.PN ---
- General Info Date of Service: 02/16/20 Admission Dx/Problem (Free Text): Sepsis with pneumonia Subjective Update: The patient is a 64-year-old gentleman who was admitted by me on February 11, 2020 due to sepsis due to urinary source. Patient today says that he is doing better. He has been tolerating mechanical soft diet. He has denied any fever or chills. The patient's primary concern is his pain issues. Functional Status: Reports: Tolerating Diet. Denies: Pain Controlled - Review of Systems General: Reports: No Symptoms HEENT: Reports: No Symptoms Pulmonary: Reports: No Symptoms Cardiovascular: Reports: No Symptoms Gastrointestinal: Reports: No Symptoms Genitourinary: Reports: No Symptoms Musculoskeletal: Reports: Neck Pain, Shoulder Pain, Arm Pain, Leg Pain Skin: Reports: No Symptoms Neurological: Reports: Pre-Existing Deficit, Difficulty Walking (Pre-existing) Psychiatric: Reports: No Symptoms - Patient Data Vitals - Most Recent: Last Vital Signs Temp 36.5 C 02/16/20 06:22 Pulse 57 L 02/16/20 06:22 Resp 10 L 02/16/20 06:22 BP 129/65 02/16/20 06:22 Pulse Ox 94 L 02/16/20 06:22 Weight - Most Recent: 73.164 kg I&O - Last 24 Hours: Intake & Output 02/15/20 02/16/20 02/16/20 22:59 06:59 14:59 Intake Total 1275 1375 Output Total 300 Balance 1275 1075 Lab Results Last 24 Hours: Laboratory Results - last 24 hr 02/15/20 02/15/20 Range/Units 10:10 10:10 WBC 4.80 (4.23-9.07) K/mm3 RBC 4.24 L (4.63-6.08) M/mm3 Hgb 11.7 L (13.7-17.5) gm/dl Hct 36.5 L (40.1-51.0) % MCV 86.1 (79.0-92.2) fl MCH 27.6 (25.7-32.2) pg MCHC 32.1 L (32.2-35.5) g/dl RDW Std Deviation 42.1 (35.1-43.9) fL Plt Count 183 (163-337) K/mm3 MPV 10.3 (9.4-12.3) fl Neut % (Auto) 71.7 H (34.0-67.9) % Lymph % (Auto) 17.9 L (21.8-53.1) % Talbot % (Auto) 7.5 (5.3-12.2) % Eos % (Auto) 2.3 (0.8-7.0) Baso % (Auto) 0.4 (0.1-1.2) % Neut # (Auto) 3.44 (1.78-5.38) K/mm3 Lymph # (Auto) 0.86 L (1.32-3.57) K/mm3 Talbot # (Auto) 0.36 (0.30-0.82) K/mm3 Eos # (Auto) 0.11 (0.04-0.54) K/mm3 Baso # (Auto) 0.02 (0.01-0.08) K/mm3 Sodium 139 (136-145) mEq/L Potassium 3.7 (3.5-5.1) mEq/L Chloride 104 (98-107) mEq/L Carbon Dioxide 28 (21-32) mEq/L Anion Gap 10.7 (5-15) BUN 6 L (7-18) mg/dL Creatinine 0.7 (0.7-1.3) mg/dL Est Cr Clr Drug Dosing 113.65 mL/min Estimated GFR (MDRD) > 60 (>60) mL/min BUN/Creatinine Ratio 8.6 L (14-18) Glucose 128 H (80-115) mg/dL Calcium 8.5 (8.5-10.1) mg/dL Phosphorus 3.5 (2.6-4.7) mg/dL Magnesium 1.7 L (1.8-2.4) mg/dl Total Bilirubin 0.6 (0.2-1.0) mg/dL AST 11 L (15-37) U/L ALT 7 L (16-63) U/L Alkaline Phosphatase 68 (46-116) U/L Total Protein 6.4 (6.4-8.2) g/dl Albumin 2.7 L (3.4-5.0) g/dl Globulin 3.7 gm/dL Albumin/Globulin Ratio 0.7 L (1-2) Rommel Results Last 24 Hours: Microbiology 02/11/20 16:55 Aerobic Blood Culture - Preliminary Blood - Venous NO GROWTH AFTER 4 DAYS Anaerobic Blood Culture - Preliminary NO GROWTH AFTER 4 DAYS 02/11/20 16:45 Aerobic Blood Culture - Preliminary Blood - Venous - Lab Draw NO GROWTH AFTER 4 DAYS Anaerobic Blood Culture - Preliminary NO GROWTH AFTER 4 DAYS Med Orders - Current: Current Medications Acetaminophen (Tylenol) 650 mg PO Q4H PRN PRN Reason: Pain (Mild 1-3)/fever Last Admin: 02/16/20 00:45 Dose: 650 mg Documented by: Baclofen (Lioresal) 10 mg PO QID [facility] Last Admin: 02/15/20 20:04 Dose: 10 mg Documented by: Benzonatate (Tessalon Perles) 100 mg PO TID PRN PRN Reason: Cough Buspirone HCl (Buspar) 15 mg PO BID [facility] Last Admin: 02/15/20 20:04 Dose: 15 mg Documented by: Carbidopa/Levodopa (Sinemet 25-100 Mg) 1 tab PO QID [facility] Last Admin: 02/15/20 20:05 Dose: 1 tab Documented by: Cyclobenzaprine HCl (Flexeril) 5 mg PO TID [facility] Last Admin: 02/15/20 20:04 Dose: 5 mg Documented by: Enoxaparin Sodium (Lovenox) 40 mg SUBCUT DAILY [facility] Last Admin: 02/15/20 08:16 Dose: 40 mg Documented by: Fentanyl (Duragesic) 100 mcg TRDERM Q72H [facility] Last Admin: 02/14/20 10:34 Dose: 100 mcg Documented by: Gabapentin (Neurontin) 200 mg PO TID [facility] Last Admin: 02/15/20 20:04 Dose: 200 mg Documented by: Guaifenesin (Mucinex) 600 mg PO BID [facility] Last Admin: 02/15/20 20:04 Dose: 600 mg Documented by: Hydrochlorothiazide (Hydrochlorothiazide) 12.5 mg PO DAILY [facility] Last Admin: 02/15/20 08:15 Dose: 12.5 mg Documented by: Hydromorphone HCl (Dilaudid) 2 mg PO Q4H PRN PRN Reason: Pain (severe 7-10) Last Admin: 02/15/20 18:56 Dose: 2 mg Documented by: Sodium Chloride (Normal Saline) 1,000 mls @ 75 mls/hr IV ASDIRECTED [facility] Last Admin: 02/15/20 23:08 Dose: 75 mls/hr Documented by: Piperacillin Sod/Tazobactam (Sod 4.5 gm/ Sodium Chloride) 100 mls @ 25 mls/hr IV Q8H [facility] Last Admin: 02/16/20 03:33 Dose: 25 mls/hr Documented by: Lactulose (Cephulac) 20 gm PO DAILY PRN PRN Reason: Constipation Last Admin: 02/14/20 09:45 Dose: 20 gm Documented by: Lorazepam (Ativan) 1 mg PO BID@07,19 [facility] Last Admin: 02/16/20 06:20 Dose: 1 mg Documented by: Lorazepam (Ativan) 0.5 mg PO BID@1200,1600 [facility] Last Admin: 02/15/20 17:18 Dose: 0.5 mg Documented by: Losartan Potassium (Cozaar) 50 mg PO DAILY [facility] Last Admin: 02/15/20 08:13 Dose: 50 mg Documented by: Magnesium Oxide (Magnesium Oxide) 400 mg PO BID [facility] Last Admin: 02/15/20 20:04 Dose: 400 mg Documented by: Miscellaneous Information (Remove Patch) 1 ea TRDERM Q72H [facility] Ondansetron HCl (Zofran) 4 mg IV Q6H PRN PRN Reason: Nausea/Vomiting Ondansetron HCl (Zofran Odt) 4 mg PO Q6H PRN PRN Reason: nausea, able to take PO Oxycodone HCl (Oxycodone) 5 mg PO Q4H PRN PRN Reason: Pain (moderate 4-6) Last Admin: 02/16/20 06:20 Dose: 5 mg Documented by: Polyethylene Glycol (Miralax) 17 gm PO DAILY PRN PRN Reason: Constipation Last Admin: 02/15/20 08:19 Dose: 17 gm Documented by: Polyethylene Glycol (Miralax) 17 gm PO DAILY [facility] Last Admin: 02/15/20 11:28 Dose: Not Given Documented by: Senna/Docusate Sodium (Senna Plus) 1 tab PO DAILY [facility] Last Admin: 02/15/20 08:15 Dose: 1 tab Documented by: Sertraline HCl (Zoloft) 50 mg PO BEDTIME [facility] Last Admin: 02/15/20 20:05 Dose: 50 mg Documented by: Simvastatin (Zocor) 20 mg PO BEDTIME [facility] Last Admin: 02/15/20 20:04 Dose: 20 mg Documented by: Terazosin HCl (Hytrin) 5 mg PO BID [facility] Last Admin: 02/15/20 20:04 Dose: 5 mg Documented by: Trazodone HCl (Trazodone) 150 mg PO BEDTIME [facility] Last Admin: 02/15/20 20:04 Dose: 150 mg Documented by: Trolamine Salicylate (Aspercreme 10%) 0 gm TOP Q4H PRN PRN Reason: Pain (mild 1-3) Discontinued Medications Fentanyl (Duragesic) 75 mcg TRDERM Q72H [facility] Last Admin: 02/12/20 02:05 Dose: Not Given Documented by: Fentanyl (Duragesic) 75 mcg TRDERM Q72H [facility] Last Admin: 02/13/20 08:33 Dose: 75 mcg Documented by: Fentanyl (Duragesic) 100 mcg TRDERM Q72H [facility] Last Admin: 02/13/20 12:26 Dose: 100 mcg Documented by: Hydromorphone HCl (Dilaudid) 2 mg PO Q6H PRN PRN Reason: Pain (severe 7-10) Last Admin: 02/13/20 08:31 Dose: 2 mg Documented by: Lactated Ringer's (Ringers, Lactated) 1,000 mls @ 999 mls/hr IV .BOLUS ONE Stop: 02/11/20 18:15 Last Admin: 02/11/20 17:15 Dose: 999 mls/hr Documented by: Ceftriaxone Sodium 2 gm/ (Sodium Chloride) 100 mls @ 200 mls/hr IV Q24H [facility] Last Admin: 02/11/20 17:39 Dose: 200 mls/hr Documented by: Sodium Chloride (Normal Saline) 1,000 mls @ 999 mls/hr IV ONETIME ONE Stop: 02/11/20 18:23 Last Admin: 02/11/20 17:40 Dose: 999 mls/hr Documented by: Ceftriaxone Sodium 2 gm/ (Sodium Chloride) 100 mls @ 200 mls/hr IV Q24H [facility] Last Admin: 02/13/20 17:08 Dose: 200 mls/hr Documented by: Magnesium Sulfate/Dextrose 1 (gm/ Premix) 100 mls @ 100 mls/hr IV ONETIME ONE Stop: 02/13/20 08:08 Last Admin: 02/13/20 08:00 Dose: 100 mls/hr Documented by: Magnesium Sulfate 4 gm/ Premix 50 mls @ 12.5 mls/hr IV ONETIME ONE Stop: 02/14/20 12:56 Last Admin: 02/14/20 09:51 Dose: 12.5 mls/hr Documented by: Piperacillin Sod/Tazobactam (Sod 4.5 gm/ Sodium Chloride) 100 mls @ 200 mls/hr IV ONETIME ONE Stop: 02/14/20 11:59 Last Admin: 02/14/20 12:14 Dose: 200 mls/hr Documented by: Magnesium Sulfate 2 gm/ Premix 50 mls @ 25 mls/hr IV ONETIME ONE Stop: 02/15/20 15:29 Last Admin: 02/15/20 13:56 Dose: 25 mls/hr Documented by: Magnesium Sulfate (Magnesium Sulfate In Water Premix) Confirm Administered Dose 2 gm in 50 mls @ as directed .ROUTE .STK-MED ONE Stop: 02/15/20 13:40 Last Admin: 02/15/20 13:56 Dose: Not Given Documented by: Lorazepam (Ativan) 0.5 mg PO BID [facility] Last Admin: 02/13/20 19:59 Dose: 0.5 mg Documented by: Miscellaneous Information (Remove Patch) 1 ea TRDERM Q72H [facility] Last Admin: 02/12/20 02:05 Dose: Not Given Documented by: Miscellaneous Information (Remove Patch) 1 ea TRDERM Q72H [facility] Last Admin: 02/13/20 08:40 Dose: 1 ea Documented by: Non-Formulary Medication (Guaifenesin) 400 mg PO Q4H PRN PRN Reason: Cough - Exam Quality Assessment: DVT Prophylaxis. No: Supplemental Oxygen General: Alert, Oriented, Cooperative, Mild Distress, Other (Heavily slurred speech, pre-existing deficit) HEENT: Pupils Equal, Pupils Reactive Neck: Supple, Trachea Midline Lungs: Clear to Auscultation, Normal Respiratory Effort Cardiovascular: Regular Rate, Regular Rhythm GI/Abdominal Exam: Normal Bowel Sounds, No Distention (Male) Exam: Deferred Back Exam: Normal Inspection (Appropriate for age and pre-existing deficit). No: Full Range of Motion Extremities: No: Normal Inspection (Contractures with spasticity of muscle groups) Skin: Warm, Dry, Intact Neurological: No New Focal Deficit. No: Normal Gait Psy/Mental Status: Alert, Normal Affect, Normal Mood Sepsis Event Note - Evaluation Sepsis Screening Result: No Definite Risk - Focused Exam Vital Signs: Vital Signs Temp Pulse Resp BP Pulse Ox 02/16/20 06:22 36.5 C 57 L 10 L 129/65 94 L 02/16/20 06:00 11 L 02/16/20 05:00 11 L 02/16/20 04:00 14 02/16/20 03:00 19 02/16/20 02:00 10 L 02/16/20 01:00 5 L 02/16/20 00:45 37.1 C 70 10 L 153/86 H 95 02/16/20 00:00 15 02/15/20 23:00 11 L 02/15/20 22:00 11 L 02/15/20 21:28 11 L 02/15/20 21:00 11 L 02/15/20 20:04 115/78 02/15/20 20:00 7 L - Problem List & Annotations (1) Sepsis SNOMED Code(s): 61798420 Code(s): A41.9 - SEPSIS, UNSPECIFIED ORGANISM Status: Acute Priority: High Current Visit: Yes Qualifiers: Sepsis type: Pseudomonas Sepsis acute organ dysfunction status: without acute organ dysfunction Qualified Code(s): A41.52 - Sepsis due to Pseudomonas (2) Pneumonia SNOMED Code(s): 754279830 Code(s): J18.9 - PNEUMONIA, UNSPECIFIED ORGANISM Status: Acute Priority: High Current Visit: Yes Qualifiers: Pneumonia type: due to unspecified organism Laterality: left Lung location: lower lobe of lung Qualified Code(s): J18.9 - Pneumonia, unspecified organism (3) Urinary tract infection SNOMED Code(s): 88608074 Code(s): N39.0 - URINARY TRACT INFECTION, SITE NOT SPECIFIED Status: Acute Priority: High Current Visit: Yes Qualifiers: Urinary tract infection type: site unspecified Hematuria presence: without hematuria Qualified Code(s): N39.0 - Urinary tract infection, site not specified (4) Anxiety SNOMED Code(s): 11962543 Code(s): F41.9 - ANXIETY DISORDER, UNSPECIFIED Status: Chronic Priority: Medium Current Visit: No (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 Code(s): G23.1 - PROGRESSIVE SUPRANUCLEAR OPHTHALMOPLEGIA Status: Chronic Priority: Medium Current Visit: No (6) Swallowing impairment SNOMED Code(s): 954567537 Code(s): R13.10 - DYSPHAGIA, UNSPECIFIED Status: Chronic Priority: Medium Current Visit: No (7) Wheelchair bound SNOMED Code(s): 295628425, 407140747 Code(s): Z99.3 - DEPENDENCE ON WHEELCHAIR Status: Chronic Priority: Medium Current Visit: No - Problem List Review Problem List Initiated/Reviewed/Updated: Yes - My Orders Last 24 Hours: My Active Orders 02/15/20 Lunch Mechanical Soft Diet [DIET] 02/17/20 10:30 Remove Patch 1 ea TRDERM Q72H - Plan Plan:: Patient is a chronically ill 64-year-old gentleman who has been admitted as an i npatient for left lower lobe pneumonia. The patient has been hospitalized 4 times this year. He also meets enough criteria for a diagnosis of sepsis. Because of the patient's bedridden status due to his neuromuscular disease I do not believe that his hypotension is indicative of septic shock. The patient has been started on Rocephin 2 g IV daily. The patient is also being gently resuscitated with fluid in order to avoid fluid overload. The patient is currently on normal saline at 75 mL/h. The patient's fluid balance will be monitored. The patient has a history of chronic pain and his fentanyl and home Dilaudid will be continued along with oxycodone as necessary to help his pain. The patient has said that he can use a walker and PT OT and speech therapy has been ordered to assess the patient's dysphagia and monitor for concern for aspiration. The patient is in a DO NOT INTUBATE DO NOT RESUSCITATE category due to his progressive neuromuscular disease. Blood and urine cultures have been obtained. He will also be kept on mechanical soft diet. Vital signs will be monitored very closely and oxygen will be given as necessary to keep his saturations around 90%. The patient should be appropriate for discharge back to long-term in 2 to 3 days depending on his physical capacity. 02/12/2020 The patient is a chronically ill 64-year-old gentleman who is currently undergoing treatment for sepsis secondary to pneumonia. The patient is currently on ceftriaxone 2 g IV on a daily basis and this should also help with the patient's suspected urinary tract infection. Cultures are currently pending. The patient's antibiotics will be deescalated when causative organism is identified. The patient is still pending speech evaluation for his dysphagia. Have placed the patient on a mechanical soft diet. Physical therapy and Occupational Therapy are currently pending. The patient will also be continued on his chronic pain medications as he does have significant spasticity. I have ordered repeat laboratory studies for the morning. The patient is currently in a DO NOT INTUBATE/DO NOT RESUSCITATE category. The patient is also somewhat bedridden and debilitated and I do not think he has been able to maintain his blood pressures due to his neuromuscular disease. This does not represent septic shock. The patient should be appropriate to return to long-term once his pneumonia and sepsis has resolved. 02/13/2020 The patient is a 64-year-old gentleman who is currently undergoing sepsis treatment secondary to his pneumonia. The patient's current antibiotics, Rocephin 2 g IV daily, will continue and his fluids will also continue. The patient has had some improvement in his overall condition except he is still having considerable pain associated with the spasticity. I have increased the patient's fentanyl from 75 mcg to 100 mcg patch. I have also increased the patient's use of Dilaudid from 2 mg IV every 6 hours to every 4 hours. The patient is pending evaluation for dysphagia. For now the patient will continue on his mechanical diet which was previously noted at the long-term. Physical therapy and occupational therapy will continue. I have ordered repeat laboratory studies for the morning. The patient should be appropriate to return to his long-term once the pneumonia and sepsis has resolved. 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 Unknown if UTI played a role in his sepsis, therefore we will continue to treat both his pneumonia and UTI. Unfortunately, he is currently on Rocephin and that will not cover Pseudomonas in his urine. He will be switched over to Zosyn to cover his Pseudomonas. Patient will also be given 4 g of magnesium for his low magnesium levels of 1.6. CRP continues to be elevated at 15.4 but he has a normal white count. No anion gap. Appetite is satisfactory as well as his daily intake. Patient continues with significant pain. When I went in his room this morning his fentanyl patch which was switched to 100 mcg today had fallen off. He was given more oxycodone and new patch was to be placed. Patient will likely discharge in 4-5 more days. 02/15/2020 64-year-old male with chronic spasticity complaining of left upper arm pain today. This appears to be musculoskeletal most likely the long head of the bicep tendon. Patient does have physical therapy consulted. Infection seems to be improving with lowering of his white count. Magnesium is slightly decreased and he will get another 2 g of magnesium. Patient will complete at least 5 days of IV antibiotics for his urinary tract infection that was positive for Pseudomonas which is resistant to levofloxacin but sensitive to Zosyn. Zosyn was started yesterday. Patient should have another 3 to 4 days of IV antibiot ics. 02/16/2020 The patient is a 64-year-old gentleman who had been admitted due to sepsis. The patient will be continued on antibiotics for at least 2 more days prior to noemi jimenes back to long-term. Patient is currently being treated for Pseudomonas urinary tract infection. Doing well otherwise today. The patient because of the severity of the infection should have at least another 2 to 3 days of IV antibiotics. Physical therapy is continue to evaluate the patient. Repeat laboratory studies have been ordered.
[2020-02-16] MEDS: Polyethylene Glycol 3350 Powder 17 GM Packet PO SCH (08:59)
[2020-02-16] MEDS: Terazosin 5 MG Cap PO SCH ×2 (09:00→20:15)
[2020-02-16] MEDS: Baclofen 10 MG Tab PO SCH ×4 (09:01→20:41)
[2020-02-16] MEDS: Cyclobenzaprine 10 MG Tab PO SCH ×3 (09:01→20:15)
[2020-02-16] MEDS: Magnesium Oxide 400 MG Tab PO SCH ×2 (09:01→20:16)
[2020-02-16] MEDS: Gabapentin 100 MG Cap PO SCH ×3 (09:02→20:15)
[2020-02-16] MEDS: Enoxaparin 40 MG/0.4 ML Syringe SUBCUT SCH (09:03)
[2020-02-16] MEDS: Carbidopa/Levodopa 25-100 MG Tab PO SCH ×4 (09:03→20:41)
[2020-02-16] MEDS: HYDROmorphone 2 MG Tab PO PRN ×4 (09:03→23:33)
[2020-02-16] MEDS: busPIRone 15 MG Tab PO SCH ×2 (09:03→20:15)
[2020-02-16] MEDS: Hydrochlorothiazide 12.5 MG Cap PO SCH (09:03)
[2020-02-16] MEDS: Losartan 25 MG Tab PO SCH (09:04)
[2020-02-16] MEDS: guaiFENesin 600 MG Tab.ER PO SCH ×2 (09:04→20:15)
[2020-02-16] MEDS: Sodium Chloride 0.9% 1,000 ML IV SCH ×2 (10:35→23:34)
[2020-02-16] MEDS: LORazepam 0.5 MG Tab PO SCH ×2 (11:14→15:21)
[2020-02-16] MEDS: traZODone 50 MG Tab PO SCH (20:15)
[2020-02-16] MEDS: Simvastatin 20 MG Tab PO SCH (20:15)
[2020-02-16] MEDS: Sertraline 50 MG Tab PO SCH (20:15)
[2020-02-17] MEDS: Piperacillin/Tazobactam 4.5 GM in Sodium Chloride 0.9% 100 ML IV SCH ×3 (03:49→18:52)
[2020-02-17] MEDS: oxyCODONE 5 MG Tab PO PRN ×3 (03:50→17:12)
[2020-02-17] MEDS: HYDROmorphone 2 MG Tab PO PRN (06:04)
[2020-02-17] MEDS: LORazepam 1 MG Tab PO SCH ×2 (06:05→18:47)
[2020-02-17] MEDS: Terazosin 5 MG Cap PO SCH ×2 (10:15→20:11)
[2020-02-17] MEDS: Cyclobenzaprine 10 MG Tab PO SCH ×3 (10:18→20:09)
[2020-02-17] MEDS: Carbidopa/Levodopa 25-100 MG Tab PO SCH ×4 (10:20→20:11)
[2020-02-17] MEDS: Gabapentin 100 MG Cap PO SCH ×3 (10:20→20:12)
[2020-02-17] MEDS: Losartan 25 MG Tab PO SCH (10:20)
[2020-02-17] MEDS: busPIRone 15 MG Tab PO SCH ×2 (10:21→20:11)
[2020-02-17] MEDS: Hydrochlorothiazide 12.5 MG Cap PO SCH (10:21)
[2020-02-17] MEDS: guaiFENesin 600 MG Tab.ER PO SCH ×2 (10:21→20:11)
[2020-02-17] MEDS: Baclofen 10 MG Tab PO SCH ×4 (10:21→20:12)
[2020-02-17] MEDS: Enoxaparin 40 MG/0.4 ML Syringe SUBCUT SCH (10:22)
[2020-02-17] MEDS: Polyethylene Glycol 3350 Powder 17 GM Packet PO SCH (10:22)
[2020-02-17] MEDS: fentaNYL 100 MCG/HR Transdermal Patch TRDERM SCH (10:23)
[2020-02-17] MEDS: Magnesium Oxide 400 MG Tab PO SCH ×2 (10:32→20:10)
--- NOTE | 2020-02-17 11:23 | PCM.DCSUM1 ---
Discharge Summary - Hospital Course HPI Initial Comments: The patient was admitted secondary to sepsis and this was thought to be urinary source. Diagnosis: Stroke: No - Discharge Data Discharge Date: 02/17/20 Discharge Disposition: DC/Tfer to SNF 03 Condition: Fair - Referral to Home Health Primary Care Physician: Nik Hughes MD - Discharge Diagnosis/Problem(s) (1) Sepsis SNOMED Code(s): 76203494 ICD Code: A41.9 - SEPSIS, UNSPECIFIED ORGANISM Status: Resolved Priority: High Current Visit: Yes Qualifiers: Sepsis type: Pseudomonas Sepsis acute organ dysfunction status: without acute organ dysfunction Qualified Code(s): A41.52 - Sepsis due to Pseudomonas (2) Pneumonia SNOMED Code(s): 054041153 ICD Code: J18.9 - PNEUMONIA, UNSPECIFIED ORGANISM Status: Resolved Priority: High Current Visit: Yes Qualifiers: Pneumonia type: due to unspecified organism Laterality: left Lung location: lower lobe of lung Qualified Code(s): J18.9 - Pneumonia, unspecified organism (3) Urinary tract infection SNOMED Code(s): 46895278 ICD Code: N39.0 - URINARY TRACT INFECTION, SITE NOT SPECIFIED Status: Resolved Priority: High Current Visit: Yes Qualifiers: Urinary tract infection type: site unspecified Hematuria presence: without hematuria Qualified Code(s): N39.0 - Urinary tract infection, site not specified (4) Anxiety SNOMED Code(s): 73087993 ICD Code: F41.9 - ANXIETY DISORDER, UNSPECIFIED Status: Chronic Priority: Medium Current Visit: No (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 Code: 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.1 - PROGRESSIVE SUPRANUCLEAR OPHTHALMOPLEGIA Status: Chronic Priority: Medium Current Visit: No (6) Swallowing impairment SNOMED Code(s): 765182322 ICD Code: R13.10 - DYSPHAGIA, UNSPECIFIED Status: Chronic Priority: Medium Current Visit: No (7) Wheelchair bound SNOMED Code(s): 967402382, 611375605 ICD Code: Z99.3 - DEPENDENCE ON WHEELCHAIR Status: Chronic Priority: Medium Current Visit: No - Patient Summary/Data Consults: Consultations 02/11/20 17:57 OT Evaluation and Treatment [CONS] Routine PT Evaluation and Treatment [CONS] Routine 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 He was also diagnosed with a number of criteria met for sepsis. Initially this was thought to be of a pneumonic source however most likely was a result of urinary source. The patient's urine culture had grown out Pseudomonas sent to [facility] quinolones and most cephalosporins. The patient was placed on IV Zosyn 4.5 g every 8 hours as the organism was susceptible to this medication. The patient tolerated this well. The patient had continued to improve through the hospitalization. 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 The patient was initially on fentanyl patch at 75 mcg and this was increased to 100 mcg in order to better control the patient's pain. Initially the patient had a white blood cell count elevated at 9.33 and this had normalized by day of discharge. The patient never had issues with tachycardia and has remained afebrile since hospitalization. The patient also had a chest x-ray obtained on 02/11/2020 which was shown to have increased density in the left lung base. It was uncertain if this was a chronic versus acute infiltrate. Regardless the patient was treated with IV antibiotics and these were deescalated when the culture results were completed. The patient says that he is doing much better today. He is [facility] his [facility]. The patient has denied any pain that is new to him or issues with diet. Research had indicated that the resistant organism would not be able to eradicated via p.o. medications. Therefore the patient will be discharged to the [facility] provided that they can provide him with Zosyn 4.5 g IV every 8 hours for an additional 4 days to help eradicate his urinary tract infection. The patient has been on a mechanical soft diet and he has been able to tolerate this. The patient also has had some activity as tolerated and he has been recommended to continue this. The patient has been hemodynamically stable and he has been discharged from acute hospitalization with the recommendations listed above. The patient also needs to follow-up with his primary care physician. - Patient Instructions Diet: Usual Diet as Tolerated, Mechanical Soft Activity: As Tolerated - Discharge Plan *PRESCRIPTION DRUG MONITORING PROGRAM REVIEWED*: No *COPY OF PRESCRIPTION DRUG MONITORING REPORT IN PATIENT DINESH: No Prescriptions/Med Rec: fentaNYL [Duragesic] 100 mcg TRDERM Q72H 30 Days #10 patch Piperacillin/Tazobactam [Piperacil-Tazobact] 4.5 gm IV Q8H #12 adv Home Medications: Home Meds Acetaminophen [Tylenol Arthritis Pain] 650 mg PO Q6H PRN #120 dose 10/22/19 [Rx] Benzonatate [Tessalon Perle] 100 mg PO TID PRN #30 capsule 10/22/19 [Rx] Carbidopa/Levodopa [Carbidopa-Levodopa 25-100] 1 tab PO QID #120 tablet 10/22/19 [Rx] Gabapentin [Neurontin] 200 mg PO TID #120 dose 10/22/19 [Rx] HYDROmorphone [Dilaudid] 2 mg PO Q6H PRN #40 dose 10/22/19 [Rx] Lactulose [Kristalose] 20 gm PO DAILY PRN #120 packet 10/22/19 [Rx] Losartan [Cozaar] 50 mg PO DAILY #30 dose 10/22/19 [Rx] Magnesium Oxide [Magnesium] 400 mg PO BID #60 dose 10/22/19 [Rx] Ondansetron [Zofran ODT] 4 mg PO Q6H PRN #20 tab.dis 10/22/19 [Rx] Simvastatin 20 mg PO BEDTIME #30 dose 10/22/19 [Rx] Terazosin [Hytrin] 5 mg PO BID #60 cap 10/22/19 [Rx] busPIRone [Buspar] 15 mg PO BID #60 tablet 10/22/19 [Rx] guaiFENesin [Fenesin IR] 400 mg PO Q4H PRN #60 tablet 10/22/19 [Rx] Baclofen 10 mg PO QID 12/14/19 [History] LORazepam [Ativan] 0.5 mg PO 12,16 12/14/19 [History] Sennosides/Docusate Sodium [Senna Plus 8.6-50 mg Tablet] 1 tab PO DAILY 12/14/19 [History] Sennosides/Docusate Sodium [Senna Plus Tablet] 1 each PO TID PRN 12/14/19 [History] Trolamine Salicylate/Aloe Vera [Aspercreme 10% Cream] 2 gm TP Q4H PRN 12/14/19 [History] hydroCHLOROthiazide [Hydrochlorothiazide] 12.5 mg PO DAILY 12/14/19 [History] polyethylene glycoL 3350 [MiraLAX] 17 gram PO DAILY 12/14/19 [History] Remove Patch 1 ea TRDERM Q72H each 12/20/19 [Rx] Celecoxib 200 mg PO DAILY 02/11/20 [History] Cyclobenzaprine [Flexeril] 5 mg PO TID 02/11/20 [History] LORazepam [Ativan] 1 mg PO 02/11/20 [History] Lactobacillus Acidophilus [Acidophilus Lactobacilli] 1 tab PO DAILY 02/11/20 [History] Sertraline [Zoloft] 50 mg PO BEDTIME 02/11/20 [History] guaiFENesin [Mucinex] 600 mg PO BID 02/11/20 [History] traZODone HCl [Trazodone HCl] 150 mg PO BEDTIME 02/11/20 [History] Piperacillin/Tazobactam [Piperacil-Tazobact] 4.5 gm IV Q8H #12 adv 02/17/20 [Rx] fentaNYL [Duragesic] 100 mcg TRDERM Q72H 30 Days #10 patch 02/17/20 [Rx] Oxygen Therapy Mode: Room Air Patient Handouts: Sepsis, Diagnosis, Adult, Urinary Tract Infection, Adult, Community-Acquired Pneumonia, Adult Forms: ED Department Discharge Referrals: Nik Hughes MD [Primary Care Provider] - 02/23/20 2:00 pm (come 15 minutes prio to register.) - Discharge Summary/Plan Comment DC Time >30 min.: Yes - General Info Date of Service: 02/17/20 Admission Dx/Problem (Free Text: Sepsis with pneumonia Subjective Update: The patient says that he is doing much better today. His pain has been better controlled. The patient feels like he can [facility] back to his [facility] today. He remains in a DO NOT INTUBATE DO NOT RESUSCITATE category. Functional Status: Reports: Pain Controlled (Fentanyl was increased to 100 mcg/h.) - Review of Systems General: Reports: No Symptoms HEENT: Reports: No Symptoms Pulmonary: Reports: No Symptoms Cardiovascular: Reports: No Symptoms Gastrointestinal: Reports: No Symptoms Genitourinary: Reports: No Symptoms Musculoskeletal: Reports: Neck Pain, Shoulder Pain, Hand Pain, Leg Pain (All of the patient's pain issues are chronic in nature due to his neuromuscular disease.) Skin: Reports: No Symptoms Neurological: Reports: No Symptoms Psychiatric: Reports: No Symptoms - Patient Data Vitals - Most Recent: Last Vital Signs Temp 36.7 C 02/17/20 08:07 Pulse 63 02/17/20 08:07 Resp 16 02/17/20 08:07 BP 116/71 02/17/20 10:20 Pulse Ox 92 L 02/17/20 08:07 Weight - Most Recent: 72.62 kg I&O - Last 24 hours: Intake & Output 02/16/20 02/17/20 02/17/20 22:59 06:59 14:59 Intake Total 2380 1992 Output Total 600 1000 Balance 1780 992 Lab Results - Last 24 hrs: Laboratory Results - last 24 hr 02/17/20 02/17/20 Range/Units 05:44 05:44 WBC 5.10 (4.23-9.07) K/mm3 RBC 4.37 L (4.63-6.08) M/mm3 Hgb 11.9 L (13.7-17.5) gm/dl Hct 37.7 L (40.1-51.0) % MCV 86.3 (79.0-92.2) fl MCH 27.2 (25.7-32.2) pg MCHC 31.6 L (32.2-35.5) g/dl RDW Std Deviation 42.0 (35.1-43.9) fL Plt Count 196 (163-337) K/mm3 MPV 10.6 (9.4-12.3) fl Neut % (Auto) 54.3 (34.0-67.9) % Lymph % (Auto) 28.6 (21.8-53.1) % [place] % (Auto) 10.4 (5.3-12.2) % Eos % (Auto) 5.7 (0.8-7.0) Baso % (Auto) 0.6 (0.1-1.2) % Neut # (Auto) 2.77 (1.78-5.38) K/mm3 Lymph # (Auto) 1.46 (1.32-3.57) K/mm3 [place] # (Auto) 0.53 (0.30-0.82) K/mm3 Eos # (Auto) 0.29 (0.04-0.54) K/mm3 Baso # (Auto) 0.03 (0.01-0.08) K/mm3 Sodium 143 (136-145) mEq/L Potassium 3.5 (3.5-5.1) mEq/L Chloride 107 (98-107) mEq/L Carbon Dioxide 27 (21-32) mEq/L Anion Gap 12.5 (5-15) BUN 4 L (7-18) mg/dL Creatinine 0.7 (0.7-1.3) mg/dL Est Cr Clr Drug Dosing 112.39 mL/min Estimated GFR (MDRD) > 60 (>60) mL/min BUN/Creatinine Ratio 5.7 L (14-18) Glucose 76 L (80-115) mg/dL Calcium 8.4 L (8.5-10.1) mg/dL Magnesium 1.7 L (1.8-2.4) mg/dl C-Reactive Protein 4.1 H* (<1.0) mg/dL TYREE Results - Last 24 hrs: Microbiology 02/11/20 16:55 Aerobic Blood Culture - Preliminary Blood - Venous NO GROWTH AFTER 5 DAYS Anaerobic Blood Culture - Preliminary NO GROWTH AFTER 5 DAYS 02/11/20 16:45 Aerobic Blood Culture - Preliminary Blood - Venous - Lab Draw NO GROWTH AFTER 5 DAYS Anaerobic Blood Culture - Preliminary NO GROWTH AFTER 5 DAYS Med Orders - Current: Current Medications Acetaminophen (Tylenol) 650 mg PO Q4H PRN PRN Reason: Pain (Mild 1-3)/fever Last Admin: 02/16/20 00:45 Dose: 650 mg Documented by: Baclofen (Lioresal) 10 mg PO QID [facility] Last Admin: 02/17/20 10:21 Dose: 10 mg Documented by: Benzonatate (Tessalon Perles) 100 mg PO TID PRN PRN Reason: Cough Buspirone HCl (Buspar) 15 mg PO BID [facility] Last Admin: 02/17/20 10:21 Dose: 15 mg Documented by: Carbidopa/Levodopa (Sinemet 25-100 Mg) 1 tab PO QID [facility] Last Admin: 02/17/20 10:20 Dose: 1 tab Documented by: Cyclobenzaprine HCl (Flexeril) 5 mg PO TID [facility] Last Admin: 02/17/20 10:18 Dose: 5 mg Documented by: Enoxaparin Sodium (Lovenox) 40 mg SUBCUT DAILY [facility] Last Admin: 02/17/20 10:22 Dose: 40 mg Documented by: Fentanyl (Duragesic) 100 mcg TRDERM Q72H [facility] Last Admin: 02/17/20 10:23 Dose: 100 mcg Documented by: Gabapentin (Neurontin) 200 mg PO TID [facility] Last Admin: 02/17/20 10:20 Dose: 200 mg Documented by: Guaifenesin (Mucinex) 600 mg PO BID [facility] Last Admin: 02/17/20 10:21 Dose: 600 mg Documented by: Hydrochlorothiazide (Hydrochlorothiazide) 12.5 mg PO DAILY [facility] Last Admin: 02/17/20 10:21 Dose: 12.5 mg Documented by: Hydromorphone HCl (Dilaudid) 2 mg PO Q4H PRN PRN Reason: Pain (severe 7-10) Last Admin: 02/17/20 06:04 Dose: 2 mg Documented by: Sodium Chloride (Normal Saline) 1,000 mls @ 75 mls/hr IV ASDIRECTED [facility] Last Admin: 02/16/20 23:34 Dose: 75 mls/hr Documented by: Piperacillin Sod/Tazobactam (Sod 4.5 gm/ Sodium Chloride) 100 mls @ 25 mls/hr IV Q8H [facility] Last Admin: 02/17/20 03:49 Dose: 25 mls/hr Documented by: Lactulose (Cephulac) 20 gm PO DAILY PRN PRN Reason: Constipation Last Admin: 02/14/20 09:45 Dose: 20 gm Documented by: Lorazepam (Ativan) 1 mg PO BID@07,19 [facility] Last Admin: 02/17/20 06:05 Dose: 1 mg Documented by: Lorazepam (Ativan) 0.5 mg PO BID@1200,1600 [facility] Last Admin: 02/16/20 15:21 Dose: 0.5 mg Documented by: Losartan Potassium (Cozaar) 50 mg PO DAILY [facility] Last Admin: 02/17/20 10:20 Dose: 50 mg Documented by: Magnesium Oxide (Magnesium Oxide) 400 mg PO BID [facility] Last Admin: 02/17/20 10:32 Dose: 400 mg Documented by: Miscellaneous Information (Remove Patch) 1 ea TRDERM Q72H [facility] Ondansetron HCl (Zofran) 4 mg IV Q6H PRN PRN Reason: Nausea/Vomiting Ondansetron HCl (Zofran Odt) 4 mg PO Q6H PRN PRN Reason: nausea, able to take PO Oxycodone HCl (Oxycodone) 5 mg PO Q4H PRN PRN Reason: Pain (moderate 4-6) Last Admin: 02/17/20 03:50 Dose: 5 mg Documented by: Polyethylene Glycol (Miralax) 17 gm PO DAILY PRN PRN Reason: Constipation Last Admin: 02/15/20 08:19 Dose: 17 gm Documented by: Polyethylene Glycol (Miralax) 17 gm PO DAILY [facility] Last Admin: 02/17/20 10:22 Dose: 17 gm Documented by: Senna/Docusate Sodium (Senna Plus) 1 tab PO DAILY [facility] Last Admin: 02/17/20 10:19 Dose: 1 tab Documented by: Sertraline HCl (Zoloft) 50 mg PO BEDTIME [facility] Last Admin: 02/16/20 20:15 Dose: 50 mg Documented by: Simvastatin (Zocor) 20 mg PO BEDTIME [facility] Last Admin: 02/16/20 20:15 Dose: 20 mg Documented by: Terazosin HCl (Hytrin) 5 mg PO BID [facility] Last Admin: 02/17/20 10:15 Dose: 5 mg Documented by: Trazodone HCl (Trazodone) 150 mg PO BEDTIME [facility] Last Admin: 02/16/20 20:15 Dose: 150 mg Documented by: Trolamine Salicylate (Aspercreme 10%) 0 gm TOP Q4H PRN PRN Reason: Pain (mild 1-3) Discontinued Medications Fentanyl (Duragesic) 75 mcg TRDERM Q72H [facility] Last Admin: 02/12/20 02:05 Dose: Not Given Documented by: Fentanyl (Duragesic) 75 mcg TRDERM Q72H [facility] Last Admin: 02/13/20 08:33 Dose: 75 mcg Documented by: Fentanyl (Duragesic) 100 mcg TRDERM Q72H [facility] Last Admin: 02/13/20 12:26 Dose: 100 mcg Documented by: Hydromorphone HCl (Dilaudid) 2 mg PO Q6H PRN PRN Reason: Pain (severe 7-10) Last Admin: 02/13/20 08:31 Dose: 2 mg Documented by: Lactated Ringer's (Ringers, Lactated) 1,000 mls @ 999 mls/hr IV .BOLUS ONE Stop: 02/11/20 18:15 Last Admin: 02/11/20 17:15 Dose: 999 mls/hr Documented by: Ceftriaxone Sodium 2 gm/ (Sodium Chloride) 100 mls @ 200 mls/hr IV Q24H [facility] Last Admin: 02/11/20 17:39 Dose: 200 mls/hr Documented by: Sodium Chloride (Normal Saline) 1,000 mls @ 999 mls/hr IV ONETIME ONE Stop: 02/11/20 18:23 Last Admin: 02/11/20 17:40 Dose: 999 mls/hr Documented by: Ceftriaxone Sodium 2 gm/ (Sodium Chloride) 100 mls @ 200 mls/hr IV Q24H [facility] Last Admin: 02/13/20 17:08 Dose: 200 mls/hr Documented by: Magnesium Sulfate/Dextrose 1 (gm/ Premix) 100 mls @ 100 mls/hr IV ONETIME ONE Stop: 02/13/20 08:08 Last Admin: 02/13/20 08:00 Dose: 100 mls/hr Documented by: Magnesium Sulfate 4 gm/ Premix 50 mls @ 12.5 mls/hr IV ONETIME ONE Stop: 02/14/20 12:56 Last Admin: 02/14/20 09:51 Dose: 12.5 mls/hr Documented by: Piperacillin Sod/Tazobactam (Sod 4.5 gm/ Sodium Chloride) 100 mls @ 200 mls/hr IV ONETIME ONE Stop: 02/14/20 11:59 Last Admin: 02/14/20 12:14 Dose: 200 mls/hr Documented by: Magnesium Sulfate 2 gm/ Premix 50 mls @ 25 mls/hr IV ONETIME ONE Stop: 02/15/20 15:29 Last Admin: 02/15/20 13:56 Dose: 25 mls/hr Documented by: Magnesium Sulfate (Magnesium Sulfate In Water Premix) Confirm Administered Dose 2 gm in 50 mls @ as directed .ROUTE .STK-MED ONE Stop: 02/15/20 13:40 Last Admin: 02/15/20 13:56 Dose: Not Given Documented by: Lorazepam (Ativan) 0.5 mg PO BID [facility] Last Admin: 02/13/20 19:59 Dose: 0.5 mg Documented by: Miscellaneous Information (Remove Patch) 1 ea TRDERM Q72H [facility] Last Admin: 02/12/20 02:05 Dose: Not Given Documented by: Miscellaneous Information (Remove Patch) 1 ea TRDERM Q72H [facility] Last Admin: 02/13/20 08:40 Dose: 1 ea Documented by: Non-Formulary Medication (Guaifenesin) 400 mg PO Q4H PRN PRN Reason: Cough - Exam Quality Assessment: Reports: DVT Prophylaxis. Denies: Supplemental Oxygen General: Reports: Alert, Oriented, Cooperative, Mild Distress HEENT: Reports: Pupils Equal, Pupils Reactive, EOMI Neck: Reports: Supple, Trachea Midline Lungs: Reports: Clear to Auscultation, Normal Respiratory Effort Cardiovascular: Reports: Regular Rate, Regular Rhythm GI/Abdominal Exam: Normal Bowel Sounds, Soft, Non-Tender, No Distention (Male) Exam: Deferred Rectal (Males) Exam: Deferred Back Exam: Reports: Normal Inspection (Chronic muscle spasms). Denies: Full Range of Motion (Decreased due to the patient's muscle spasms) Extremities: Normal Inspection (Contractures, muscle spasms of all extremities) Skin: Reports: Warm, Dry, Intact Neurological: Reports: No New Focal Deficit. Denies: Normal Speech (Slurred speech due to neuromuscular disease, chronic) Psy/Mental Status: Reports: Alert, Normal Affect *Q Meaningful Use (DIS) - VTE *Q VTE Mechanical Contraindications *Q: At Risk for Falls
[2020-02-17] MEDS: LORazepam 0.5 MG Tab PO SCH ×2 (12:14→16:12)
[2020-02-17] MEDS: Simvastatin 20 MG Tab PO SCH (20:11)
[2020-02-17] MEDS: Sertraline 50 MG Tab PO SCH (20:11)
[2020-02-17] MEDS: traZODone 50 MG Tab PO SCH (20:11)
[2020-02-18] MEDS: Piperacillin/Tazobactam 4.5 GM in Sodium Chloride 0.9% 100 ML IV SCH ×3 (04:34→18:30)
[2020-02-18] MEDS: HYDROmorphone 2 MG Tab PO PRN ×2 (04:34→12:20)
[2020-02-18] MEDS: LORazepam 1 MG Tab PO SCH ×2 (07:33→18:25)
--- NOTE | 2020-02-18 07:50 | PCM.PN ---
- General Info Date of Service: 02/18/20 Admission Dx/Problem (Free Text): Sepsis with pneumonia Subjective Update: Patient is a chronically ill 64-year-old gentleman who was admitted to acute hospitalization on 02/11/2020 due to sepsis from a urinary source. The patient requires IV antibiotics in the long-term has been unable to meet that need. As a result of that the patient was maintained in hospitalization and on IV antibiotics. Patient says that he is doing good today. He has denied any pain. He has also been tolerating his diet. Functional Status: Reports: Pain Controlled, Tolerating Diet - Review of Systems General: Reports: Weakness, Fatigue HEENT: Reports: No Symptoms Pulmonary: Reports: No Symptoms Cardiovascular: Reports: No Symptoms Gastrointestinal: Reports: No Symptoms Genitourinary: Reports: No Symptoms Musculoskeletal: Reports: Neck Pain, Shoulder Pain, Arm Pain, Leg Pain Skin: Reports: No Symptoms Neurological: Reports: No Symptoms Psychiatric: Reports: No Symptoms - Patient Data Vitals - Most Recent: Last Vital Signs Temp 36.4 C 02/18/20 04:39 Pulse 63 02/18/20 04:39 Resp 14 02/18/20 04:39 BP 138/84 02/18/20 04:39 Pulse Ox 94 L 02/18/20 04:39 Weight - Most Recent: 72.393 kg I&O - Last 24 Hours: Intake & Output 02/17/20 02/18/20 02/18/20 22:59 06:59 14:59 Intake Total 1440 500 Output Total 1050 1150 Balance 390 -650 Lab Results Last 24 Hours: Laboratory Results - last 24 hr 02/17/20 Range/Units 05:44 Sodium 143 (136-145) mEq/L Potassium 3.5 (3.5-5.1) mEq/L Chloride 107 (98-107) mEq/L Carbon Dioxide 27 (21-32) mEq/L Anion Gap 12.5 (5-15) BUN 4 L (7-18) mg/dL Creatinine 0.7 (0.7-1.3) mg/dL Est Cr Clr Drug Dosing 112.39 mL/min Estimated GFR (MDRD) > 60 (>60) mL/min BUN/Creatinine Ratio 5.7 L (14-18) Glucose 76 L (80-115) mg/dL Calcium 8.4 L (8.5-10.1) mg/dL Magnesium 1.7 L (1.8-2.4) mg/dl C-Reactive Protein 4.1 H* (<1.0) mg/dL [place] Results Last 24 Hours: Microbiology 02/11/20 16:55 Aerobic Blood Culture - Preliminary Blood - Venous NO GROWTH AFTER 6 DAYS Anaerobic Blood Culture - Preliminary NO GROWTH AFTER 6 DAYS 02/11/20 16:45 Aerobic Blood Culture - Preliminary Blood - Venous - Lab Draw NO GROWTH AFTER 6 DAYS Anaerobic Blood Culture - Preliminary NO GROWTH AFTER 6 DAYS Med Orders - Current: Current Medications Acetaminophen (Tylenol) 650 mg PO Q4H PRN PRN Reason: Pain (Mild 1-3)/fever Last Admin: 02/16/20 00:45 Dose: 650 mg Documented by: Baclofen (Lioresal) 10 mg PO QID [facility] Last Admin: 02/17/20 20:12 Dose: 10 mg Documented by: Benzonatate (Tessalon Perles) 100 mg PO TID PRN PRN Reason: Cough Buspirone HCl (Buspar) 15 mg PO BID [facility] Last Admin: 02/17/20 20:11 Dose: 15 mg Documented by: Carbidopa/Levodopa (Sinemet 25-100 Mg) 1 tab PO QID [facility] Last Admin: 02/17/20 20:11 Dose: 1 tab Documented by: Cyclobenzaprine HCl (Flexeril) 5 mg PO TID [facility] Last Admin: 02/17/20 20:09 Dose: 5 mg Documented by: Enoxaparin Sodium (Lovenox) 40 mg SUBCUT DAILY [facility] Last Admin: 02/17/20 10:22 Dose: 40 mg Documented by: Fentanyl (Duragesic) 100 mcg TRDERM Q72H [facility] Last Admin: 02/17/20 10:23 Dose: 100 mcg Documented by: Gabapentin (Neurontin) 200 mg PO TID [facility] Last Admin: 02/17/20 20:12 Dose: 200 mg Documented by: Guaifenesin (Mucinex) 600 mg PO BID [facility] Last Admin: 02/17/20 20:11 Dose: 600 mg Documented by: Hydrochlorothiazide (Hydrochlorothiazide) 12.5 mg PO DAILY [facility] Last Admin: 02/17/20 10:21 Dose: 12.5 mg Documented by: Hydromorphone HCl (Dilaudid) 2 mg PO Q4H PRN PRN Reason: Pain (severe 7-10) Last Admin: 02/18/20 04:34 Dose: 2 mg Documented by: Piperacillin Sod/Tazobactam (Sod 4.5 gm/ Sodium Chloride) 100 mls @ 25 mls/hr IV Q8H [facility] Last Admin: 02/18/20 04:34 Dose: 25 mls/hr Documented by: Lactulose (Cephulac) 20 gm PO DAILY PRN PRN Reason: Constipation Last Admin: 02/14/20 09:45 Dose: 20 gm Documented by: Lorazepam (Ativan) 1 mg PO BID@07,19 [facility] Last Admin: 02/18/20 07:33 Dose: 1 mg Documented by: Lorazepam (Ativan) 0.5 mg PO BID@1200,1600 [facility] Last Admin: 02/17/20 16:12 Dose: 0.5 mg Documented by: Losartan Potassium (Cozaar) 50 mg PO DAILY [facility] Magnesium Oxide (Magnesium Oxide) 400 mg PO BID [facility] Last Admin: 02/17/20 20:10 Dose: 400 mg Documented by: Miscellaneous Information (Remove Patch) 1 ea TRDERM Q72H [facility] Last Admin: 02/17/20 12:20 Dose: 1 ea Documented by: Ondansetron HCl (Zofran) 4 mg IV Q6H PRN PRN Reason: Nausea/Vomiting Ondansetron HCl (Zofran Odt) 4 mg PO Q6H PRN PRN Reason: nausea, able to take PO Oxycodone HCl (Oxycodone) 5 mg PO Q4H PRN PRN Reason: Pain (moderate 4-6) Last Admin: 02/17/20 17:12 Dose: 5 mg Documented by: Polyethylene Glycol (Miralax) 17 gm PO DAILY PRN PRN Reason: Constipation Last Admin: 02/15/20 08:19 Dose: 17 gm Documented by: Polyethylene Glycol (Miralax) 17 gm PO DAILY [facility] Last Admin: 02/17/20 10:22 Dose: 17 gm Documented by: Senna/Docusate Sodium (Senna Plus) 1 tab PO DAILY [facility] Last Admin: 02/17/20 10:19 Dose: 1 tab Documented by: Sertraline HCl (Zoloft) 50 mg PO BEDTIME [facility] Last Admin: 02/17/20 20:11 Dose: 50 mg Documented by: Simvastatin (Zocor) 20 mg PO BEDTIME [facility] Last Admin: 02/17/20 20:11 Dose: 20 mg Documented by: Terazosin HCl (Hytrin) 5 mg PO BID [facility] Last Admin: 02/17/20 20:11 Dose: 5 mg Documented by: Trazodone HCl (Trazodone) 150 mg PO BEDTIME [facility] Last Admin: 02/17/20 20:11 Dose: 150 mg Documented by: Trolamine Salicylate (Aspercreme 10%) 0 gm TOP Q4H PRN PRN Reason: Pain (mild 1-3) Discontinued Medications Fentanyl (Duragesic) 75 mcg TRDERM Q72H [facility] Last Admin: 02/12/20 02:05 Dose: Not Given Documented by: Fentanyl (Duragesic) 75 mcg TRDERM Q72H [facility] Last Admin: 02/13/20 08:33 Dose: 75 mcg Documented by: Fentanyl (Duragesic) 100 mcg TRDERM Q72H [facility] Last Admin: 02/13/20 12:26 Dose: 100 mcg Documented by: Hydromorphone HCl (Dilaudid) 2 mg PO Q6H PRN PRN Reason: Pain (severe 7-10) Last Admin: 02/13/20 08:31 Dose: 2 mg Documented by: Lactated Ringer's (Ringers, Lactated) 1,000 mls @ 999 mls/hr IV .BOLUS ONE Stop: 02/11/20 18:15 Last Admin: 02/11/20 17:15 Dose: 999 mls/hr Documented by: Ceftriaxone Sodium 2 gm/ (Sodium Chloride) 100 mls @ 200 mls/hr IV Q24H [facility] Last Admin: 02/11/20 17:39 Dose: 200 mls/hr Documented by: Sodium Chloride (Normal Saline) 1,000 mls @ 999 mls/hr IV ONETIME ONE Stop: 02/11/20 18:23 Last Admin: 02/11/20 17:40 Dose: 999 mls/hr Documented by: Sodium Chloride (Normal Saline) 1,000 mls @ 75 mls/hr IV ASDIRECTED [facility] Last Admin: 02/16/20 23:34 Dose: 75 mls/hr Documented by: Ceftriaxone Sodium 2 gm/ (Sodium Chloride) 100 mls @ 200 mls/hr IV Q24H [facility] Last Admin: 02/13/20 17:08 Dose: 200 mls/hr Documented by: Magnesium Sulfate/Dextrose 1 (gm/ Premix) 100 mls @ 100 mls/hr IV ONETIME ONE Stop: 02/13/20 08:08 Last Admin: 02/13/20 08:00 Dose: 100 mls/hr Documented by: Magnesium Sulfate 4 gm/ Premix 50 mls @ 12.5 mls/hr IV ONETIME ONE Stop: 02/14/20 12:56 Last Admin: 02/14/20 09:51 Dose: 12.5 mls/hr Documented by: Piperacillin Sod/Tazobactam (Sod 4.5 gm/ Sodium Chloride) 100 mls @ 200 mls/hr IV ONETIME ONE Stop: 02/14/20 11:59 Last Admin: 02/14/20 12:14 Dose: 200 mls/hr Documented by: Magnesium Sulfate 2 gm/ Premix 50 mls @ 25 mls/hr IV ONETIME ONE Stop: 02/15/20 15:29 Last Admin: 02/15/20 13:56 Dose: 25 mls/hr Documented by: Magnesium Sulfate (Magnesium Sulfate In Water Premix) Confirm Administered Dose 2 gm in 50 mls @ as directed .ROUTE .STK-MED ONE Stop: 02/15/20 13:40 Last Admin: 02/15/20 13:56 Dose: Not Given Documented by: Lorazepam (Ativan) 0.5 mg PO BID [facility] Last Admin: 02/13/20 19:59 Dose: 0.5 mg Documented by: Losartan Potassium (Cozaar) 50 mg PO DAILY [facility] Last Admin: 02/17/20 10:20 Dose: 50 mg Documented by: Miscellaneous Information (Remove Patch) 1 ea TRDERM Q72H [facility] Last Admin: 02/12/20 02:05 Dose: Not Given Documented by: Miscellaneous Information (Remove Patch) 1 ea TRDERM Q72H [facility] Last Admin: 02/13/20 08:40 Dose: 1 ea Documented by: Non-Formulary Medication (Guaifenesin) 400 mg PO Q4H PRN PRN Reason: Cough - Exam Quality Assessment: DVT Prophylaxis. No: Supplemental Oxygen General: Alert, Oriented, Cooperative, No Acute Distress HEENT: Pupils Equal, Pupils Reactive, EOMI. No: Mucous Membr. Moist/Esko (Dry) Neck: Supple, Trachea Midline Lungs: Clear to Auscultation, Normal Respiratory Effort Cardiovascular: Regular Rate, Regular Rhythm GI/Abdominal Exam: Normal Bowel Sounds, Soft, No Distention (Male) Exam: Deferred Back Exam: Normal Inspection (Severe muscle spasms). No: Full Range of Motion (Decreased due to muscle spasticity) Extremities: No Pedal Edema. No: Normal Inspection (Contractures due to spastic muscles) Skin: Warm, Dry, Intact Neurological: No New Focal Deficit. No: Normal Speech (Chronic slurred speech) Psy/Mental Status: Alert, Normal Affect, Normal Mood Sepsis Event Note - Evaluation Sepsis Screening Result: No Definite Risk - Focused Exam Vital Signs: Vital Signs Temp Pulse Resp BP Pulse Ox 02/18/20 04:39 36.4 C 63 14 138/84 94 L 02/17/20 23:04 36.5 C 71 12 110/75 94 L 02/17/20 20:11 147/80 H - Problem List & Annotations (1) Sepsis SNOMED Code(s): 79790847 Code(s): A41.9 - SEPSIS, UNSPECIFIED ORGANISM Status: Resolved Priority: High Current Visit: Yes Qualifiers: Sepsis type: Pseudomonas Sepsis acute organ dysfunction status: without acute organ dysfunction Qualified Code(s): A41.52 - Sepsis due to Pseudomonas (2) Pneumonia SNOMED Code(s): 859383968 Code(s): J18.9 - PNEUMONIA, UNSPECIFIED ORGANISM Status: Resolved Priority: High Current Visit: Yes Qualifiers: Pneumonia type: due to unspecified organism Laterality: left Lung location: lower lobe of lung Qualified Code(s): J18.9 - Pneumonia, unspecified organism (3) Urinary tract infection SNOMED Code(s): 72160525 Code(s): N39.0 - URINARY TRACT INFECTION, SITE NOT SPECIFIED Status: Resolved Priority: High Current Visit: Yes Qualifiers: Urinary tract infection type: site unspecified Hematuria presence: without hematuria Qualified Code(s): N39.0 - Urinary tract infection, site not specified (4) Anxiety SNOMED Code(s): 42438369 Code(s): F41.9 - ANXIETY DISORDER, UNSPECIFIED Status: Chronic Priority: Medium Current Visit: No (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 Code(s): G23.1 - PROGRESSIVE SUPRANUCLEAR OPHTHALMOPLEGIA Status: Chronic Priority: Medium Current Visit: No (6) Swallowing impairment SNOMED Code(s): 547227699 Code(s): R13.10 - DYSPHAGIA, UNSPECIFIED Status: Chronic Priority: Medium Current Visit: No (7) Wheelchair bound SNOMED Code(s): 858092898, 605907730 Code(s): Z99.3 - DEPENDENCE ON WHEELCHAIR Status: Chronic Priority: Medium Current Visit: No - Problem List Review Problem List Initiated/Reviewed/Updated: Yes - My Orders Last 24 Hours: My Active Orders 02/17/20 10:30 Remove Patch 1 ea TRDERM Q72H 02/18/20 09:00 Losartan [Cozaar] 50 mg PO DAILY - Plan Plan:: Patient is a chronically ill 64-year-old gentleman who has been admitted as an inpatient for left lower lobe pneumonia. The patient has been hospitalized 4 times this year. He also meets enough criteria for a diagnosis of sepsis. Because of the patient's bedridden status due to his neuromuscular disease I do not believe that his hypotension is indicative of septic shock. The patient has been started on Rocephin 2 g IV daily. The patient is also being gently resuscitated with fluid in order to avoid fluid overload. The patient is currently on normal saline at 75 mL/h. The patient's fluid balance will be monitored. The patient has a history of chronic pain and his fentanyl and home Dilaudid will be continued along with oxycodone as necessary to help his pain. The patient has said that he can use a walker and PT OT and speech therapy has been ordered to assess the patient's dysphagia and monitor for concern for aspiration. The patient is in a DO NOT INTUBATE DO NOT RESUSCITATE category due to his progressive neuromuscular disease. Blood and urine cultures have been obtained. He will also be kept on mechanical soft diet. Vital signs will be monitored very closely and oxygen will be given as necessary to keep his saturations around 90%. The patient should be appropriate for discharge back to long-term in 2 to 3 days depending on his physical capacity. 02/12/2020 The patient is a chronically ill 64-year-old gentleman who is currently undergoing treatment for sepsis secondary to pneumonia. The patient is currently on ceftriaxone 2 g IV on a daily basis and this should also help with the patient's suspected urinary tract infection. Cultures are currently pending. The patient's antibiotics will be deescalated when causative organism is i dentified. The patient is still pending speech evaluation for his dysphagia. Have placed the patient on a mechanical soft diet. Physical therapy and Occupational Therapy are currently pending. The patient will also be continued on his chronic pain medications as he does have significant spasticity. I have ordered repeat laboratory studies for the morning. The patient is currently in a DO NOT INTUBATE/DO NOT RESUSCITATE category. The patient is also somewhat bedridden and debilitated and I do not think he has been able to maintain his blood pressures due to his neuromuscular disease. This does not represent septic shock. The patient should be appropriate to return to long-term once his pneumonia and sepsis has resolved. 02/13/2020 The patient is a 64-year-old gentleman who is currently undergoing sepsis treatment secondary to his pneumonia. The patient's current antibiotics, Rocephin 2 g IV daily, will continue and his fluids will also continue. The patient has had some improvement in his overall condition except he is still having considerable pain associated with the spasticity. I have increased the patient's fentanyl from 75 mcg to 100 mcg patch. I have also increased the patient's use of Dilaudid from 2 mg IV every 6 hours to every 4 hours. The patient is pending evaluation for dysphagia. For now the patient will continue on his mechanical diet which was previously noted at the long-term. Physical therapy and occupational therapy will continue. I have ordered repeat laboratory studies for the morning. The patient should be appropriate to return to his long-term once the pneumonia and sepsis has resolved. 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 Unknown if UTI played a role in his sepsis, therefore we will continue to treat both his pneumonia and UTI. Unfortunately, he is currently on Rocephin and that will not cover Pseudomonas in his urine. He will be switched over to Zosyn to cover his Pseudomonas. Patient will also be given 4 g of magnesium for his low magnesium levels of 1.6. CRP continues to be elevated at 15.4 but he has a normal white count. No anion gap. Appetite is satisfactory as well as his daily intake. Patient continues with significant pain. When I went in his room this morning his fentanyl patch which was switched to 100 mcg today had fallen off. He was given more oxycodone and new patch was to be placed. Patient will likely discharge in 4-5 more days. 02/15/2020 64-year-old male with chronic spasticity complaining of left upper arm pain today. This appears to be musculoskeletal most likely the long head of the bicep tendon. Patient does have physical therapy consulted. Infection seems to be improving with lowering of his white count. Magnesium is slightly decreased and he will get another 2 g of magnesium. Patient will complete at least 5 days of IV antibiotics for his urinary tract infection that was positive for Pseudomonas which is resistant to levofloxacin but sensitive to Zosyn. Zosyn wa s started yesterday. Patient should have another 3 to 4 days of IV antibiotics. 02/16/2020 The patient is a 64-year-old gentleman who had been admitted due to sepsis. The patient will be continued on antibiotics for at least 2 more days prior to transfer back to long-term. Patient is currently being treated for Pseudomonas urinary tract infection. Doing well otherwise today. The patient because of the severity of the infection should have at least another 2 to 3 days of IV antibiotics. Physical therapy is continue to evaluate the patient. Repeat laboratory studies have been ordered. 02/18/2020 The patient is a chronically ill 64-year-old gentleman who had been discharged yesterday to long-term. The patient's long-term was unable to administer IV Zosyn. The patient has been retained in hospitalization in order to receive at least 3 more days of IV Zosyn for his complicated urinary tract infection. The patient has been doing well at this point. Physical therapy will continue to evaluate patient. Repeat laboratory studies have been ordered. At this time the patient is awaiting placement.
[2020-02-18] MEDS: Polyethylene Glycol 3350 Powder 17 GM Packet PO SCH (09:13)
[2020-02-18] MEDS: Terazosin 5 MG Cap PO SCH ×2 (09:14→21:18)
[2020-02-18] MEDS: Magnesium Oxide 400 MG Tab PO SCH ×2 (09:14→21:17)
[2020-02-18] MEDS: Losartan 50 MG Tab PO SCH (09:14)
[2020-02-18] MEDS: Cyclobenzaprine 10 MG Tab PO SCH ×3 (09:15→21:19)
[2020-02-18] MEDS: Carbidopa/Levodopa 25-100 MG Tab PO SCH ×4 (09:15→21:20)
[2020-02-18] MEDS: oxyCODONE 5 MG Tab PO PRN ×3 (09:16→21:17)
[2020-02-18] MEDS: busPIRone 15 MG Tab PO SCH ×2 (09:16→21:18)
[2020-02-18] MEDS: Baclofen 10 MG Tab PO SCH ×4 (09:16→21:18)
[2020-02-18] MEDS: Hydrochlorothiazide 12.5 MG Cap PO SCH (09:16)
[2020-02-18] MEDS: Gabapentin 100 MG Cap PO SCH ×3 (09:17→21:16)
[2020-02-18] MEDS: guaiFENesin 600 MG Tab.ER PO SCH ×2 (09:17→21:19)
[2020-02-18] MEDS: Enoxaparin 40 MG/0.4 ML Syringe SUBCUT SCH (09:18)
[2020-02-18] MEDS: LORazepam 0.5 MG Tab PO SCH ×2 (12:20→16:02)
[2020-02-18] MEDS: Acetaminophen 325 MG Tab PO PRN (18:25)
[2020-02-18] MEDS: traZODone 50 MG Tab PO SCH (21:16)
[2020-02-18] MEDS: Sertraline 50 MG Tab PO SCH (21:17)
[2020-02-18] MEDS: Simvastatin 20 MG Tab PO SCH (21:17)
[2020-02-19] MEDS: Piperacillin/Tazobactam 4.5 GM in Sodium Chloride 0.9% 100 ML IV SCH ×3 (03:18→18:31)
[2020-02-19] MEDS: HYDROmorphone 2 MG Tab PO PRN (04:01)
[2020-02-19] MEDS: oxyCODONE 5 MG Tab PO PRN ×3 (04:36→18:29)
[2020-02-19] MEDS: LORazepam 1 MG Tab PO SCH ×2 (07:04→18:28)
[2020-02-19] MEDS ORDERED: Benzocaine/Cetylpyridinium/Menthol Lozenge MUCMEM PRN (07:24)
--- NOTE | 2020-02-19 07:56 | PCM.PN ---
- General Info Date of Service: 02/19/20 Admission Dx/Problem (Free Text): Sepsis with pneumonia, UTI Subjective Update: The patient is a chronically ill 64-year-old gentleman who was admitted to acute hospitalization on February 11, 2020 due to sepsis from a urinary source. Urine cultures obtained have grown out Pseudomonas. The Pseudomonas is resistant to oral medications. The patient today says that he is doing better. The increased fentanyl patch has been helping with his pain. He has been tolerating diet. Functional Status: Reports: Pain Controlled - Review of Systems General: Reports: Weakness HEENT: Reports: Dysphasia Pulmonary: Reports: No Symptoms Cardiovascular: Reports: No Symptoms Gastrointestinal: Reports: No Symptoms Genitourinary: Reports: No Symptoms Musculoskeletal: Reports: Neck Pain, Shoulder Pain, Arm Pain, Back Pain Skin: Reports: No Symptoms Neurological: Reports: Pre-Existing Deficit, Trouble Speaking, Difficulty Walking Psychiatric: Reports: No Symptoms - Patient Data Vitals - Most Recent: Last Vital Signs Temp 36.8 C 02/19/20 07:32 Pulse 96 02/19/20 03:17 Resp 20 02/19/20 07:32 BP 136/66 02/19/20 07:32 Pulse Ox 97 02/19/20 03:17 Weight - Most Recent: 71.758 kg I&O - Last 24 Hours: Intake & Output 02/18/20 02/19/20 02/19/20 22:59 06:59 14:59 Intake Total 840 525 Output Total 500 525 Balance 340 0 Rommel Results Last 24 Hours: Microbiology 02/11/20 16:55 Aerobic Blood Culture - Final Blood - Venous NO GROWTH AFTER 7 DAYS Anaerobic Blood Culture - Final NO GROWTH AFTER 7 DAYS 02/11/20 16:45 Aerobic Blood Culture - Final Blood - Venous - Lab Draw NO GROWTH AFTER 7 DAYS Anaerobic Blood Culture - Final NO GROWTH AFTER 7 DAYS Med Orders - Current: Current Medications Acetaminophen (Tylenol) 650 mg PO Q4H PRN PRN Reason: Pain (Mild 1-3)/fever Last Admin: 02/18/20 18:25 Dose: 650 mg Documented by: Baclofen (Lioresal) 10 mg PO QID [facility]AS[facility] Last Admin: 02/18/20 21:18 Dose: 10 mg Documented by: Benzocaine/Menthol (Cepacol Sore Throat) 1 lozenge MUCMEM Q4H PRN PRN Reason: Sore Throat Benzonatate (Tessalon Perles) 100 mg PO TID PRN PRN Reason: Cough Last Admin: 02/18/20 12:20 Dose: 100 mg Documented by: Buspirone HCl (Buspar) 15 mg PO BID [facility] Last Admin: 02/18/20 21:18 Dose: 15 mg Documented by: Carbidopa/Levodopa (Sinemet 25-100 Mg) 1 tab PO QID [facility] Last Admin: 02/18/20 21:20 Dose: 1 tab Documented by: Cyclobenzaprine HCl (Flexeril) 5 mg PO TID [facility] Last Admin: 02/18/20 21:19 Dose: 5 mg Documented by: Enoxaparin Sodium (Lovenox) 40 mg SUBCUT DAILY [facility] Last Admin: 02/18/20 09:18 Dose: 40 mg Documented by: Fentanyl (Duragesic) 100 mcg TRDERM Q72H [facility] Last Admin: 02/17/20 10:23 Dose: 100 mcg Documented by: Gabapentin (Neurontin) 200 mg PO TID [facility] Last Admin: 02/18/20 21:16 Dose: 200 mg Documented by: Guaifenesin (Mucinex) 600 mg PO BID [facility] Last Admin: 02/18/20 21:19 Dose: 600 mg Documented by: Hydrochlorothiazide (Hydrochlorothiazide) 12.5 mg PO DAILY [facility] Last Admin: 02/18/20 09:16 Dose: 12.5 mg Documented by: Hydromorphone HCl (Dilaudid) 2 mg PO Q4H PRN PRN Reason: Pain (severe 7-10) Last Admin: 02/19/20 04:01 Dose: 2 mg Documented by: Piperacillin Sod/Tazobactam (Sod 4.5 gm/ Sodium Chloride) 100 mls @ 25 mls/hr IV Q8H [facility] Last Admin: 02/19/20 03:18 Dose: 25 mls/hr Documented by: Lactulose (Cephulac) 20 gm PO DAILY PRN PRN Reason: Constipation Last Admin: 02/14/20 09:45 Dose: 20 gm Documented by: Lorazepam (Ativan) 1 mg PO BID@07,19 [facility] Last Admin: 02/19/20 07:04 Dose: 1 mg Documented by: Lorazepam (Ativan) 0.5 mg PO BID@1200,1600 [facility] Last Admin: 02/18/20 16:02 Dose: 0.5 mg Documented by: Losartan Potassium (Cozaar) 50 mg PO DAILY [facility] Last Admin: 02/18/20 09:14 Dose: 50 mg Documented by: Magnesium Hydroxide (Milk Of Magnesia) 30 ml PO ONETIME ONE Stop: 02/19/20 09:01 Magnesium Oxide (Magnesium Oxide) 400 mg PO BID [facility] Last Admin: 02/18/20 21:17 Dose: 400 mg Documented by: Miscellaneous Information (Remove Patch) 1 ea TRDERM Q72H [facility] Last Admin: 02/17/20 12:20 Dose: 1 ea Documented by: Ondansetron HCl (Zofran) 4 mg IV Q6H PRN PRN Reason: Nausea/Vomiting Ondansetron HCl (Zofran Odt) 4 mg PO Q6H PRN PRN Reason: nausea, able to take PO Oxycodone HCl (Oxycodone) 5 mg PO Q4H PRN PRN Reason: Pain (moderate 4-6) Last Admin: 02/19/20 04:36 Dose: 5 mg Documented by: Polyethylene Glycol (Miralax) 17 gm PO DAILY PRN PRN Reason: Constipation Last Admin: 02/15/20 08:19 Dose: 17 gm Documented by: Polyethylene Glycol (Miralax) 17 gm PO DAILY [facility] Last Admin: 02/18/20 09:13 Dose: 17 gm Documented by: Senna/Docusate Sodium (Senna Plus) 1 tab PO DAILY [facility] Last Admin: 02/18/20 09:17 Dose: 1 tab Documented by: Sertraline HCl (Zoloft) 50 mg PO BEDTIME [facility] Last Admin: 02/18/20 21:17 Dose: 50 mg Documented by: Simvastatin (Zocor) 20 mg PO BEDTIME [facility] Last Admin: 02/18/20 21:17 Dose: 20 mg Documented by: Terazosin HCl (Hytrin) 5 mg PO BID [facility] Last Admin: 02/18/20 21:18 Dose: 5 mg Documented by: Trazodone HCl (Trazodone) 150 mg PO BEDTIME [facility] Last Admin: 02/18/20 21:16 Dose: 150 mg Documented by: Trolamine Salicylate (Aspercreme 10%) 0 gm TOP Q4H PRN PRN Reason: Pain (mild 1-3) Discontinued Medications Fentanyl (Duragesic) 75 mcg TRDERM Q72H [facility] Last Admin: 02/12/20 02:05 Dose: Not Given Documented by: Fentanyl (Duragesic) 75 mcg TRDERM Q72H [facility] Last Admin: 02/13/20 08:33 Dose: 75 mcg Documented by: Fentanyl (Duragesic) 100 mcg TRDERM Q72H [facility] Last Admin: 02/13/20 12:26 Dose: 100 mcg Documented by: Hydromorphone HCl (Dilaudid) 2 mg PO Q6H PRN PRN Reason: Pain (severe 7-10) Last Admin: 02/13/20 08:31 Dose: 2 mg Documented by: Lactated Ringer's (Ringers, Lactated) 1,000 mls @ 999 mls/hr IV .BOLUS ONE Stop: 02/11/20 18:15 Last Admin: 02/11/20 17:15 Dose: 999 mls/hr Documented by: Ceftriaxone Sodium 2 gm/ (Sodium Chloride) 100 mls @ 200 mls/hr IV Q24H [facility] Last Admin: 02/11/20 17:39 Dose: 200 mls/hr Documented by: Sodium Chloride (Normal Saline) 1,000 mls @ 999 mls/hr IV ONETIME ONE Stop: 02/11/20 18:23 Last Admin: 02/11/20 17:40 Dose: 999 mls/hr Documented by: Sodium Chloride (Normal Saline) 1,000 mls @ 75 mls/hr IV ASDIRECTED [facility] Last Admin: 02/16/20 23:34 Dose: 75 mls/hr Documented by: Ceftriaxone Sodium 2 gm/ (Sodium Chloride) 100 mls @ 200 mls/hr IV Q24H [facility] Last Admin: 02/13/20 17:08 Dose: 200 mls/hr Documented by: Magnesium Sulfate/Dextrose 1 (gm/ Premix) 100 mls @ 100 mls/hr IV ONETIME ONE Stop: 02/13/20 08:08 Last Admin: 02/13/20 08:00 Dose: 100 mls/hr Documented by: Magnesium Sulfate 4 gm/ Premix 50 mls @ 12.5 mls/hr IV ONETIME ONE Stop: 02/14/20 12:56 Last Admin: 02/14/20 09:51 Dose: 12.5 mls/hr Documented by: Piperacillin Sod/Tazobactam (Sod 4.5 gm/ Sodium Chloride) 100 mls @ 200 mls/hr IV ONETIME ONE Stop: 02/14/20 11:59 Last Admin: 02/14/20 12:14 Dose: 200 mls/hr Documented by: Magnesium Sulfate 2 gm/ Premix 50 mls @ 25 mls/hr IV ONETIME ONE Stop: 02/15/20 15:29 Last Admin: 02/15/20 13:56 Dose: 25 mls/hr Documented by: Magnesium Sulfate (Magnesium Sulfate In Water Premix) Confirm Administered Dose 2 gm in 50 mls @ as directed .ROUTE .STK-MED ONE Stop: 02/15/20 13:40 Last Admin: 02/15/20 13:56 Dose: Not Given Documented by: Lorazepam (Ativan) 0.5 mg PO BID [facility] Last Admin: 02/13/20 19:59 Dose: 0.5 mg Documented by: Losartan Potassium (Cozaar) 50 mg PO DAILY [facility] Last Admin: 02/17/20 10:20 Dose: 50 mg Documented by: Miscellaneous Information (Remove Patch) 1 ea TRDERM Q72H [facility] Last Admin: 02/12/20 02:05 Dose: Not Given Documented by: Miscellaneous Information (Remove Patch) 1 ea TRDERM Q72H [facility] Last Admin: 02/13/20 08:40 Dose: 1 ea Documented by: Non-Formulary Medication (Guaifenesin) 400 mg PO Q4H PRN PRN Reason: Cough - Exam Quality Assessment: Supplemental Oxygen, DVT Prophylaxis General: Alert, Oriented, Cooperative, Other (Pre-existing deficit, speech slurred) HEENT: Pupils Equal, Pupils Reactive, EOMI Neck: Supple, Trachea Midline Lungs: Clear to Auscultation, Normal Respiratory Effort Cardiovascular: Regular Rate, Regular Rhythm GI/Abdominal Exam: Normal Bowel Sounds, Soft, No Distention (Male) Exam: Deferred Back Exam: No: Normal Inspection (Significant muscle spasticity, appropriate for age) Extremities: No Pedal Edema. No: Normal Inspection, Normal Range of Motion (Decreased range of motion all extremities due to muscle spasticity from progressive neuromuscular disease) Skin: Warm, Dry, Intact Neurological: No New Focal Deficit. No: Normal Gait, Normal Speech Psy/Mental Status: Alert, Normal Affect, Normal Mood Sepsis Event Note - Evaluation Sepsis Screening Result: No Definite Risk - Focused Exam Vital Signs: Vital Signs Temp Temp Pulse Pulse Resp BP BP 02/19/20 07:32 36.8 C 20 136/66 02/19/20 03:17 36.8 C 96 13 111/64 02/19/20 00:15 89 02/19/20 00:00 36.4 C 68 16 94/56 L 02/18/20 22:20 76 02/18/20 21:18 106/56 L 02/18/20 20:00 75 106/56 L Pulse Ox 02/19/20 07:32 02/19/20 03:17 97 02/19/20 00:15 98 02/19/20 00:00 97 02/18/20 22:20 97 02/18/20 21:18 02/18/20 20:00 92 L - Problem List & Annotations (1) Sepsis SNOMED Code(s): 20396729 Code(s): A41.9 - SEPSIS, UNSPECIFIED ORGANISM Status: Resolved Priority: High Current Visit: Yes Qualifiers: Sepsis type: Pseudomonas Sepsis acute organ dysfunction status: without acute organ dysfunction Qualified Code(s): A41.52 - Sepsis due to Pseudomonas (2) Pneumonia SNOMED Code(s): 803033526 Code(s): J18.9 - PNEUMONIA, UNSPECIFIED ORGANISM Status: Resolved Priority: High Current Visit: Yes Qualifiers: Pneumonia type: due to unspecified organism Laterality: left Lung location: lower lobe of lung Qualified Code(s): J18.9 - Pneumonia, unspecified organism (3) Urinary tract infection SNOMED Code(s): 37468453 Code(s): N39.0 - URINARY TRACT INFECTION, SITE NOT SPECIFIED Status: Resolved Priority: High Current Visit: Yes Qualifiers: Urinary tract infection type: site unspecified Hematuria presence: without hematuria Qualified Code(s): N39.0 - Urinary tract infection, site not specified (4) Anxiety SNOMED Code(s): 60040135 Code(s): F41.9 - ANXIETY DISORDER, UNSPECIFIED Status: Chronic Priority: Medium Current Visit: No (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 Code(s): G23.1 - PROGRESSIVE SUPRANUCLEAR OPHTHALMOPLEGIA Status: Chronic Priority: Medium Current Visit: No (6) Swallowing impairment SNOMED Code(s): 762103317 Code(s): R13.10 - DYSPHAGIA, UNSPECIFIED Status: Chronic Priority: Medium Current Visit: No (7) Wheelchair bound SNOMED Code(s): 139431956, 290503385 Code(s): Z99.3 - DEPENDENCE ON WHEELCHAIR Status: Chronic Priority: Medium Current Visit: No - Problem List Review Problem List Initiated/Reviewed/Updated: Yes - My Orders Last 24 Hours: My Active Orders 02/18/20 09:00 Losartan [Cozaar] 50 mg PO DAILY 02/18/20 16:00 Bladder Scan [RC] ASDIRECTED 02/19/20 07:24 Benzocaine/Cetylpyrd/Menthol [Cepacol Sore Throat] 1 lozenge MUCMEM Q4H PRN 02/19/20 09:00 Magnesium Hydroxide [Milk of Magnesia] 30 ml PO ONETIME ONE - Plan Plan:: Patient is a chronically ill 64-year-old gentleman who has been admitted as an inpatient for left lower lobe pneumonia. The patient has been hospitalized 4 times this year. He also meets enough criteria for a diagnosis of sepsis. Because of the patient's bedridden status due to his neuromuscular disease I do not believe that his hypotension is indicative of septic shock. The patient has been started on Rocephin 2 g IV daily. The patient is also being gently r esuscitated with fluid in order to avoid fluid overload. The patient is currently on normal saline at 75 mL/h. The patient's fluid balance will be monitored. The patient has a history of chronic pain and his fentanyl and home Dilaudid will be continued along with oxycodone as necessary to help his pain. The patient has said that he can use a walker and PT OT and speech therapy has been ordered to assess the patient's dysphagia and monitor for concern for aspiration. The patient is in a DO NOT INTUBATE DO NOT RESUSCITATE category due to his progressive neuromuscular disease. Blood and urine cultures have been obtained. He will also be kept on mechanical soft diet. Vital signs will be monitored very closely and oxygen will be given as necessary to keep his saturations around 90%. The patient should be appropriate for discharge back to long-term in 2 to 3 days depending on his physical capacity. 02/12/2020 The patient is a chronically ill 64-year-old gentleman who is currently undergoing treatment for sepsis secondary to pneumonia. The patient is currently on ceftriaxone 2 g IV on a daily basis and this should also help with the patient's suspected urinary tract infection. Cultures are currently pending. The patient's antibiotics will be deescalated when causative organism is identified. The patient is still pending speech evaluation for his dysphagia. Have placed the patient on a mechanical soft diet. Physical therapy and Occupational Therapy are currently pending. The patient will also be continued on his chronic pain medications as he does have significant spasticity. I have ordered repeat laboratory studies for the morning. The patient is currently in a DO NOT INTUBATE/DO NOT RESUSCITATE category. The patient is also somewhat bedridden and debilitated and I do not think he has been able to maintain his blood pressures due to his neuromuscular disease. This does not represent septic shock. The patient should be appropriate to return to long-term once his pneumonia and sepsis has resolved. 02/13/2020 The patient is a 64-year-old gentleman who is currently undergoing sepsis treatment secondary to his pneumonia. The patient's current antibiotics, Rocephin 2 g IV daily, will continue and his fluids will also continue. The patient has had some improvement in his overall condition except he is still having considerable pain associated with the spasticity. I have increased the patient's fentanyl from 75 mcg to 100 mcg patch. I have also increased the patient's use of Dilaudid from 2 mg IV every 6 hours to every 4 hours. The patient is pending evaluation for dysphagia. For now the patient will continue on his mechanical diet which was previously noted at the long-term. Physical therapy and occupational therapy will continue. I have ordered repeat laboratory studies for the morning. The patient should be appropriate to return to his long-term once the pneumonia and sepsis has resolved. 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 Unknown if UTI played a role in his sepsis, therefore we will continue to treat both his pneumonia and UTI. Unfortunately, he is currently on Rocephin and that will not cover Pseudomonas in his urine. He will be switched over to Zosyn to cover his Pseudomonas. Patient will also be given 4 g of magnesium for his low magnesium levels of 1.6. CRP continues to be elevated at 15.4 but he has a normal white count. No anion gap. Appetite is satisfactory as well as his daily intake. Patient continues with significant pain. When I went in his room this morning his fentanyl patch which was switched to 100 mcg today had fallen off. He was given more oxycodone and new patch was to be placed. Patient will likely discharge in 4-5 more days. 02/15/2020 64-year-old male with chronic spasticity complaining of left upper arm pain today. This appears to be musculoskeletal most likely the long head of the bicep tendon. Patient does have physical therapy consulted. Infection seems to be improving with lowering of his white count. Magnesium is slightly decreased and he will get another 2 g of magnesium. Patient will complete at least 5 days of IV antibiotics for his urinary tract infection that was positive for Pseudomonas which is resistant to levofloxacin but sensitive to Zosyn. Zosyn was started yesterday. Patient should have another 3 to 4 days of IV antibiotics. 02/16/2020 The patient is a 64-year-old gentleman who had been admitted due to sepsis. The patient will be continued on antibiotics for at least 2 more days prior to transfer back to long-term. Patient is currently being treated for Pseudomonas urinary tract infection. Doing well otherwise today. The patient because of the severity of the infection should have at least another 2 to 3 days of IV antibiotics. Physical therapy is continue to evaluate the patient. Repeat laboratory studies have been ordered. 02/18/2020 The patient is a chronically ill 64-year-old gentleman who had been discharged yesterday to long-term. The patient's long-term was unable to administer IV Zosyn. The patient has been retained in hospitalization in order to receive at least 3 more days of IV Zosyn for his complicated urinary tract infection. The patient has been doing well at this point. Physical therapy will continue t o evaluate patient. Repeat laboratory studies have been ordered. At this time the patient is awaiting placement. 02/19/2020 The patient is a 64-year-old gentleman who is currently awaiting placement. The patient had been discharged previously on February 17 2020 however, the patient was unable to receive IV antibiotics for his Pseudomonas urinary tract infection. The patient will need to have 2 more days of IV antibiotics prior to transitioning to long-term. Patient is to continue with his diet. He is also to have DVT prophylaxis. Physical therapy will continue to monitor patient. Overall, patient seems to be doing better.
[2020-02-19] MEDS: Acetaminophen 325 MG Tab PO PRN (08:00)
[2020-02-19] MEDS: guaiFENesin 600 MG Tab.ER PO SCH ×2 (08:00→20:34)
[2020-02-19] MEDS: busPIRone 15 MG Tab PO SCH ×2 (08:00→20:34)
[2020-02-19] MEDS: Carbidopa/Levodopa 25-100 MG Tab PO SCH ×4 (08:02→20:33)
[2020-02-19] MEDS: Gabapentin 100 MG Cap PO SCH ×3 (08:02→20:36)
[2020-02-19] MEDS: Terazosin 5 MG Cap PO SCH ×2 (08:02→20:36)
[2020-02-19] MEDS: Baclofen 10 MG Tab PO SCH ×4 (08:02→20:36)
[2020-02-19] MEDS: Hydrochlorothiazide 12.5 MG Cap PO SCH (08:02)
[2020-02-19] MEDS: Losartan 50 MG Tab PO SCH (08:03)
[2020-02-19] MEDS: Magnesium Oxide 400 MG Tab PO SCH ×2 (08:03→20:36)
[2020-02-19] MEDS: Cyclobenzaprine 10 MG Tab PO SCH ×3 (08:03→20:35)
[2020-02-19] MEDS: Trolamine Salicylate/Aloe Vera 10% Crm 85 GM Tube TOP PRN (08:04)
[2020-02-19] MEDS: Polyethylene Glycol 3350 Powder 17 GM Packet PO SCH (08:04)
[2020-02-19] MEDS: Enoxaparin 40 MG/0.4 ML Syringe SUBCUT SCH (08:04)
[2020-02-19] MEDS ORDERED: Magnesium Hydroxide 400 MG/5 ML Susp 30 ML Cup PO ONE (09:00)
[2020-02-19] MEDS: LORazepam 0.5 MG Tab PO SCH ×2 (12:46→16:19)
[2020-02-19] MEDS: Simvastatin 20 MG Tab PO SCH (20:34)
[2020-02-19] MEDS: traZODone 50 MG Tab PO SCH (20:37)
[2020-02-19] MEDS: Sertraline 50 MG Tab PO SCH (20:37)
[2020-02-20] MEDS: Piperacillin/Tazobactam 4.5 GM in Sodium Chloride 0.9% 100 ML IV SCH ×3 (04:14→18:30)
[2020-02-20] MEDS: oxyCODONE 5 MG Tab PO PRN ×4 (04:29→20:32)
[2020-02-20] MEDS: LORazepam 1 MG Tab PO SCH ×2 (07:26→18:27)
[2020-02-20] MEDS: Trolamine Salicylate/Aloe Vera 10% Crm 85 GM Tube TOP PRN (08:51)
[2020-02-20] MEDS: Polyethylene Glycol 3350 Powder 17 GM Packet PO SCH ×2 (08:52→09:13)
[2020-02-20] MEDS: Acetaminophen 325 MG Tab PO PRN (08:52)
[2020-02-20] MEDS: Terazosin 5 MG Cap PO SCH ×2 (08:53→20:34)
[2020-02-20] MEDS: Carbidopa/Levodopa 25-100 MG Tab PO SCH ×4 (08:53→20:33)
[2020-02-20] MEDS: Gabapentin 100 MG Cap PO SCH ×3 (08:53→20:32)
[2020-02-20] MEDS: Hydrochlorothiazide 12.5 MG Cap PO SCH (08:53)
[2020-02-20] MEDS: guaiFENesin 600 MG Tab.ER PO SCH ×2 (08:54→20:33)
[2020-02-20] MEDS: Cyclobenzaprine 10 MG Tab PO SCH ×3 (08:54→20:31)
[2020-02-20] MEDS: Magnesium Oxide 400 MG Tab PO SCH ×2 (08:54→20:31)
[2020-02-20] MEDS: Losartan 50 MG Tab PO SCH (08:54)
[2020-02-20] MEDS: Enoxaparin 40 MG/0.4 ML Syringe SUBCUT SCH (08:55)
[2020-02-20] MEDS: busPIRone 15 MG Tab PO SCH ×2 (08:55→20:35)
[2020-02-20] MEDS: Baclofen 10 MG Tab PO SCH ×4 (08:55→20:35)
[2020-02-20] MEDS: fentaNYL 100 MCG/HR Transdermal Patch TRDERM SCH (09:52)
[2020-02-20] MEDS: LORazepam 0.5 MG Tab PO SCH ×2 (11:54→16:12)
[2020-02-20] MEDS: HYDROmorphone 2 MG Tab PO PRN ×2 (11:54→18:26)
--- NOTE | 2020-02-20 12:15 | PCM.PN ---
- General Info Date of Service: 02/20/20 Admission Dx/Problem (Free Text): Sepsis with pneumonia, UTI Subjective Update: The patient is a chronically ill 64-year-old gentleman with progressive neuromuscular disease who was admitted to acute hospitalization on February 11, 2020 due to sepsis from a urinary source. The bacteria have been identified as Pseudomonas and he has been on IV Zosyn as there are no p.o. equivalents. Patient is currently awaiting placement. The patient's longterm has been unable to accommodate the IV antibiotics. Patient today says that he is doing much better. His pain has been relatively well controlled considering his neuromuscular issues. He has been tolerating his diet and been eating well. Functional Status: Reports: Tolerating Diet. Denies: Pain Controlled - Review of Systems General: Reports: Weakness, Fatigue HEENT: Reports: No Symptoms Pulmonary: Reports: No Symptoms Cardiovascular: Reports: No Symptoms Gastrointestinal: Reports: No Symptoms Genitourinary: Reports: No Symptoms Musculoskeletal: Reports: Neck Pain, Arm Pain, Back Pain, Leg Pain Skin: Reports: No Symptoms Neurological: Reports: Pre-Existing Deficit, Trouble Speaking Psychiatric: Reports: No Symptoms - Patient Data Vitals - Most Recent: Last Vital Signs Temp 36.6 C 02/20/20 11:34 Pulse 75 02/20/20 11:34 Resp 16 02/20/20 11:34 BP 133/74 02/20/20 11:34 Pulse Ox 94 L 02/20/20 11:34 Weight - Most Recent: 71.622 kg I&O - Last 24 Hours: Intake & Output 02/19/20 02/20/20 02/20/20 22:59 06:59 14:59 Intake Total 1910 600 240 Output Total 250 675 Balance 1660 -75 240 Med Orders - Current: Current Medications Acetaminophen (Tylenol) 650 mg PO Q4H PRN PRN Reason: Pain (Mild 1-3)/fever Last Admin: 02/20/20 08:52 Dose: 650 mg Documented by: Baclofen (Lioresal) 10 mg PO QID JASPER Last Admin: 02/20/20 08:55 Dose: 10 mg Documented by: Benzocaine/Menthol (Cepacol Sore Throat) 1 lozenge MUCMEM Q4H PRN PRN Reason: Sore Throat Benzonatate (Tessalon Perles) 100 mg PO TID PRN PRN Reason: Cough Last Admin: 02/18/20 12:20 Dose: 100 mg Documented by: Buspirone HCl (Buspar) 15 mg PO BID [facility] Last Admin: 02/20/20 08:55 Dose: 15 mg Documented by: Carbidopa/Levodopa (Sinemet 25-100 Mg) 1 tab PO QID [facility] Last Admin: 02/20/20 08:53 Dose: 1 tab Documented by: Cyclobenzaprine HCl (Flexeril) 5 mg PO TID [facility] Last Admin: 02/20/20 08:54 Dose: 5 mg Documented by: Enoxaparin Sodium (Lovenox) 40 mg SUBCUT DAILY [facility] Last Admin: 02/20/20 08:55 Dose: 40 mg Documented by: Fentanyl (Duragesic) 100 mcg TRDERM Q72H [facility] Last Admin: 02/20/20 09:52 Dose: 100 mcg Documented by: Gabapentin (Neurontin) 200 mg PO TID [facility] Last Admin: 02/20/20 08:53 Dose: 200 mg Documented by: Guaifenesin (Mucinex) 600 mg PO BID [facility] Last Admin: 02/20/20 08:54 Dose: 600 mg Documented by: Hydrochlorothiazide (Hydrochlorothiazide) 12.5 mg PO DAILY [facility] Last Admin: 02/20/20 08:53 Dose: 12.5 mg Documented by: Hydromorphone HCl (Dilaudid) 2 mg PO Q4H PRN PRN Reason: Pain (severe 7-10) Last Admin: 02/20/20 11:54 Dose: 2 mg Documented by: Piperacillin Sod/Tazobactam (Sod 4.5 gm/ Sodium Chloride) 100 mls @ 25 mls/hr IV Q8H [facility] Last Admin: 02/20/20 11:55 Dose: 25 mls/hr Documented by: Lactulose (Cephulac) 20 gm PO DAILY PRN PRN Reason: Constipation Last Admin: 02/14/20 09:45 Dose: 20 gm Documented by: Lorazepam (Ativan) 1 mg PO BID@07,19 [facility] Last Admin: 02/20/20 07:26 Dose: 1 mg Documented by: Lorazepam (Ativan) 0.5 mg PO BID@1200,1600 [facility] Last Admin: 02/20/20 11:54 Dose: 0.5 mg Documented by: Losartan Potassium (Cozaar) 50 mg PO DAILY [facility] Last Admin: 02/20/20 08:54 Dose: 50 mg Documented by: Magnesium Oxide (Magnesium Oxide) 400 mg PO BID [facility] Last Admin: 02/20/20 08:54 Dose: 400 mg Documented by: Miscellaneous Information (Remove Patch) 1 ea TRDERM Q72H [facility] Last Admin: 02/20/20 09:54 Dose: 1 ea Documented by: Ondansetron HCl (Zofran) 4 mg IV Q6H PRN PRN Reason: Nausea/Vomiting Ondansetron HCl (Zofran Odt) 4 mg PO Q6H PRN PRN Reason: nausea, able to take PO Last Admin: 02/19/20 08:01 Dose: 4 mg Documented by: Oxycodone HCl (Oxycodone) 5 mg PO Q4H PRN PRN Reason: Pain (moderate 4-6) Last Admin: 02/20/20 10:52 Dose: 5 mg Documented by: Polyethylene Glycol (Miralax) 17 gm PO DAILY PRN PRN Reason: Constipation Last Admin: 02/15/20 08:19 Dose: 17 gm Documented by: Polyethylene Glycol (Miralax) 17 gm PO DAILY [facility] Last Admin: 02/20/20 09:13 Dose: Not Given Documented by: Senna/Docusate Sodium (Senna Plus) 1 tab PO DAILY [facility] Last Admin: 02/20/20 08:56 Dose: 1 tab Documented by: Sertraline HCl (Zoloft) 50 mg PO BEDTIME [facility] Last Admin: 02/19/20 20:37 Dose: 50 mg Documented by: Simvastatin (Zocor) 20 mg PO BEDTIME [facility] Last Admin: 02/19/20 20:34 Dose: 20 mg Documented by: Terazosin HCl (Hytrin) 5 mg PO BID [facility] Last Admin: 02/20/20 08:53 Dose: 5 mg Documented by: Trazodone HCl (Trazodone) 150 mg PO BEDTIME [facility] Last Admin: 02/19/20 20:37 Dose: 150 mg Documented by: Trolamine Salicylate (Aspercreme 10%) 0 gm TOP Q4H PRN PRN Reason: Pain (mild 1-3) Last Admin: 02/20/20 08:51 Dose: 1 applic Documented by: Discontinued Medications Fentanyl (Duragesic) 75 mcg TRDERM Q72H [facility] Last Admin: 02/12/20 02:05 Dose: Not Given Documented by: Fentanyl (Duragesic) 75 mcg TRDERM Q72H [facility] Last Admin: 02/13/20 08:33 Dose: 75 mcg Documented by: Fentanyl (Duragesic) 100 mcg TRDERM Q72H [facility] Last Admin: 02/13/20 12:26 Dose: 100 mcg Documented by: Hydromorphone HCl (Dilaudid) 2 mg PO Q6H PRN PRN Reason: Pain (severe 7-10) Last Admin: 02/13/20 08:31 Dose: 2 mg Documented by: Lactated Ringer's (Ringers, Lactated) 1,000 mls @ 999 mls/hr IV .BOLUS ONE Stop: 02/11/20 18:15 Last Admin: 02/11/20 17:15 Dose: 999 mls/hr Documented by: Ceftriaxone Sodium 2 gm/ (Sodium Chloride) 100 mls @ 200 mls/hr IV Q24H [facility] Last Admin: 02/11/20 17:39 Dose: 200 mls/hr Documented by: Sodium Chloride (Normal Saline) 1,000 mls @ 999 mls/hr IV ONETIME ONE Stop: 02/11/20 18:23 Last Admin: 02/11/20 17:40 Dose: 999 mls/hr Documented by: Sodium Chloride (Normal Saline) 1,000 mls @ 75 mls/hr IV ASDIRECTED [facility] Last Admin: 02/16/20 23:34 Dose: 75 mls/hr Documented by: Ceftriaxone Sodium 2 gm/ (Sodium Chloride) 100 mls @ 200 mls/hr IV Q24H [facility] Last Admin: 02/13/20 17:08 Dose: 200 mls/hr Documented by: Magnesium Sulfate/Dextrose 1 (gm/ Premix) 100 mls @ 100 mls/hr IV ONETIME ONE Stop: 02/13/20 08:08 Last Admin: 02/13/20 08:00 Dose: 100 mls/hr Documented by: Magnesium Sulfate 4 gm/ Premix 50 mls @ 12.5 mls/hr IV ONETIME ONE Stop: 02/14/20 12:56 Last Admin: 02/14/20 09:51 Dose: 12.5 mls/hr Documented by: Piperacillin Sod/Tazobactam (Sod 4.5 gm/ Sodium Chloride) 100 mls @ 200 mls/hr IV ONETIME ONE Stop: 02/14/20 11:59 Last Admin: 02/14/20 12:14 Dose: 200 mls/hr Documented by: Magnesium Sulfate 2 gm/ Premix 50 mls @ 25 mls/hr IV ONETIME ONE Stop: 02/15/20 15:29 Last Admin: 02/15/20 13:56 Dose: 25 mls/hr Documented by: Magnesium Sulfate (Magnesium Sulfate In Water Premix) Confirm Administered Dose 2 gm in 50 mls @ as directed .ROUTE .STK-MED ONE Stop: 02/15/20 13:40 Last Admin: 02/15/20 13:56 Dose: Not Given Documented by: Lorazepam (Ativan) 0.5 mg PO BID [facility] Last Admin: 02/13/20 19:59 Dose: 0.5 mg Documented by: Losartan Potassium (Cozaar) 50 mg PO DAILY [facility] Last Admin: 02/17/20 10:20 Dose: 50 mg Documented by: Magnesium Hydroxide (Milk Of Magnesia) 30 ml PO ONETIME ONE Stop: 02/19/20 09:01 Last Admin: 02/19/20 08:04 Dose: 30 ml Documented by: Miscellaneous Information (Remove Patch) 1 ea TRDERM Q72H [facility] Last Admin: 02/12/20 02:05 Dose: Not Given Documented by: Miscellaneous Information (Remove Patch) 1 ea TRDERM Q72H [facility] Last Admin: 02/13/20 08:40 Dose: 1 ea Documented by: Non-Formulary Medication (Guaifenesin) 400 mg PO Q4H PRN PRN Reason: Cough - Exam Quality Assessment: Supplemental Oxygen, DVT Prophylaxis General: Alert, Oriented, Cooperative HEENT: Pupils Equal, Pupils Reactive, EOMI Neck: Supple, Trachea Midline Lungs: Clear to Auscultation, Normal Respiratory Effort Cardiovascular: Regular Rate, Regular Rhythm GI/Abdominal Exam: Normal Bowel Sounds, Soft, Non-Tender, No Distention (Male) Exam: Deferred Back Exam: No: Normal Inspection (Spasticity of spinal muscles) Extremities: No Pedal Edema. No: Normal Inspection, Normal Range of Motion (Spastic contractures of limbs.) Skin: Warm, Dry, Intact Neurological: No New Focal Deficit (Pre-existing deficit). No: Normal Gait, Normal Speech (Slurred speech, pre-existing) Psy/Mental Status: Alert, Normal Affect, Normal Mood Sepsis Event Note - Evaluation Sepsis Screening Result: No Definite Risk - Focused Exam Vital Signs: Vital Signs Temp Pulse Resp BP Pulse Ox 02/20/20 11:34 36.6 C 75 16 133/74 94 L 02/20/20 08:54 106/61 02/20/20 08:53 106/61 02/20/20 08:50 81 106/61 93 L 02/20/20 07:53 36.6 C 68 16 116/102 H 93 L 02/20/20 04:21 36.9 C 63 14 107/58 L 96 - Problem List & Annotations (1) Sepsis SNOMED Code(s): 48405292 Code(s): A41.9 - SEPSIS, UNSPECIFIED ORGANISM Status: Resolved Priority: High Current Visit: Yes Qualifiers: Sepsis type: Pseudomonas Sepsis acute organ dysfunction status: without acute organ dysfunction Qualified Code(s): A41.52 - Sepsis due to Pseudomonas (2) Pneumonia SNOMED Code(s): 180700769 Code(s): J18.9 - PNEUMONIA, UNSPECIFIED ORGANISM Status: Resolved Priority: High Current Visit: Yes Qualifiers: Pneumonia type: due to unspecified organism Laterality: left Lung location: lower lobe of lung Qualified Code(s): J18.9 - Pneumonia, unspecified organism (3) Urinary tract infection SNOMED Code(s): 96058055 Code(s): N39.0 - URINARY TRACT INFECTION, SITE NOT SPECIFIED Status: Resolved Priority: High Current Visit: Yes Qualifiers: Urinary tract infection type: site unspecified Hematuria presence: without hematuria Qualified Code(s): N39.0 - Urinary tract infection, site not specified (4) Anxiety SNOMED Code(s): 61901558 Code(s): F41.9 - ANXIETY DISORDER, UNSPECIFIED Status: Chronic Priority: Medium Current Visit: No (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 Code(s): G23.1 - PROGRESSIVE SUPRANUCLEAR OPHTHALMOPLEGIA Status: Chronic Priority: Medium Current Visit: No (6) Swallowing impairment SNOMED Code(s): 840820240 Code(s): R13.10 - DYSPHAGIA, UNSPECIFIED Status: Chronic Priority: Medium Current Visit: No (7) Wheelchair bound SNOMED Code(s): 143390497, 180648708 Code(s): Z99.3 - DEPENDENCE ON WHEELCHAIR Status: Chronic Priority: Medium Current Visit: No - Problem List Review Problem List Initiated/Reviewed/Updated: Yes - Plan Plan:: Patient is a chronically ill 64-year-old gentleman who has been admitted as an inpatient for left lower lobe pneumonia. The patient has been hospitalized 4 times this year. He also meets enough criteria for a diagnosis of sepsis. Because of the patient's bedridden status due to his neuromuscular disease I do not believe that his hypotension is indicative of septic shock. The patient has been started on Rocephin 2 g IV daily. The patient is also being gently resuscitated with fluid in order to avoid fluid overload. The patient is currently on normal saline at 75 mL/h. The patient's fluid balance will be monitored. The patient has a history of chronic pain and his fentanyl and home Dilaudid will be continued along with oxycodone as necessary to help his pain. The patient has said that he can use a walker and PT OT and speech therapy has been ordered to assess the patient's dysphagia and monitor for concern for aspiration. The patient is in a DO NOT INTUBATE DO NOT RESUSCITATE category due to his progressive neuromuscular disease. Blood and urine cultures have been obtained. He will also be kept on mechanical soft diet. Vital signs will be monitored very closely and oxygen will be given as necessary to keep his saturations around 90%. The patient should be appropriate for discharge back to longterm in 2 to 3 days depending on his physical capacity. 02/12/2020 The patient is a chronically ill 64-year-old gentleman who is currently undergoing treatment for sepsis secondary to pneumonia. The patient is currently on ceftriaxone 2 g IV on a daily basis and this should also help with the patient's suspected urinary tract infection. Cultures are currently pending. The patient's antibiotics will be deescalated when causative organism is identified. The patient is still pending speech evaluation for his dysphagia. Have placed the patient on a mechanical soft diet. Physical therapy and Occupational Therapy are currently pending. The patient will also be continued on his chronic pain medications as he does have significant spasticity. I have ordered repeat laboratory studies for the morning. The patient is currently in a DO NOT INTUBATE/DO NOT RESUSCITATE category. The patient is also somewhat bedridden and debilitated and I do not think he has been able to maintain his blood pressures due to his neuromuscular disease. This does not represent septic shock. The patient should be appropriate to return to longterm once his pneumonia and sepsis has resolved. 02/13/2020 The patient is a 64-year-old gentleman who is currently undergoing sepsis t reatment secondary to his pneumonia. The patient's current antibiotics, Rocephin 2 g IV daily, will continue and his fluids will also continue. The patient has had some improvement in his overall condition except he is still having considerable pain associated with the spasticity. I have increased the patient's fentanyl from 75 mcg to 100 mcg patch. I have also increased the patient's use of Dilaudid from 2 mg IV every 6 hours to every 4 hours. The patient is pending evaluation for dysphagia. For now the patient will continue on his mechanical diet which was previously noted at the longterm. Physical therapy and occupational therapy will continue. I have ordered repeat laboratory studies for the morning. The patient should be appropriate to return to his longterm once the pneumonia and sepsis has resolved. 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 Unknown if UTI played a role in his sepsis, therefore we will continue to treat both his pneumonia and UTI. Unfortunately, he is currently on Rocephin and that will not cover Pseudomonas in his urine. He will be switched over to Zosyn to cover his Pseudomonas. Patient will also be given 4 g of magnesium for his low magnesium levels of 1.6. CRP continues to be elevated at 15.4 but he has a normal white count. No anion gap. Appetite is satisfactory as well as his daily intake. Patient continues with significant pain. When I went in his room this morning his fentanyl patch which was switched to 100 mcg today had fallen off. He was given more oxycodone and new patch was to be placed. Patient will likely discharge in 4-5 more days. 02/15/2020 64-year-old male with chronic spasticity complaining of left upper arm pain today. This appears to be musculoskeletal most likely the long head of the bicep tendon. Patient does have physical therapy consulted. Infection seems to be improving with lowering of his white count. Magnesium is slightly decreased and he will get another 2 g of magnesium. Patient will complete at least 5 days of IV antibiotics for his urinary tract infection that was positive for Pseudomonas which is resistant to levofloxacin but sensitive to Zosyn. Zosyn was started yesterday. Patient should have another 3 to 4 days of IV antibiotics. 02/16/2020 The patient is a 64-year-old gentleman who had been admitted due to sepsis. The patient will be continued on antibiotics for at least 2 more days prior to transfer back to longterm. Patient is currently being treated for Pseudomonas urinary tract infection. Doing well otherwise today. The patient because of the severity of the infection should have at least another 2 to 3 days of IV antibiotics. Physical therapy is continue to evaluate the patient. Repeat laboratory studies have been ordered. 02/18/2020 The patient is a chronically ill 64-year-old gentleman who had been discharged yesterday to longterm. The patient's longterm was unable to administer IV Zosyn. The patient has been retained in hospitalization in order to receive at least 3 more days of IV Zosyn for his complicated urinary tract infection. The patient has been doing well at this point. Physical therapy will continue to evaluate patient. Repeat laboratory studies have been ordered. At this time the patient is awaiting placement. 02/19/2020 The patient is a 64-year-old gentleman who is currently awaiting placement. The patient had been discharged previously on February 17 2020 however, the patient was unable to receive IV antibiotics for his Pseudomonas urinary tract infection. The patient will need to have 2 more days of IV antibiotics prior to transitioning to longterm. Patient is to continue with his diet. He is also to have DVT prophylaxis. Physical therapy will continue to monitor patient. Overall, patient seems to be doing better. 02/20/2020 The patient is a 64-year-old gentleman who is currently awaiting placement. He had been previously discharged and retained in hospitalization in order to complete his IV antibiotic therapy. This will be completed today. The patient should also be appropriate for placement tomorrow back at his longterm. The patient will continue his current diet as tolerated. He is also to have DVT prophylaxis. Physical therapy will monitor the patient. He seems to be doing better today. Anticipate home tomorrow.
[2020-02-20] MEDS: traZODone 50 MG Tab PO SCH (20:33)
[2020-02-20] MEDS: Sertraline 50 MG Tab PO SCH (20:33)
[2020-02-20] MEDS: Simvastatin 20 MG Tab PO SCH (20:34)
[2020-02-21] MEDS: Piperacillin/Tazobactam 4.5 GM in Sodium Chloride 0.9% 100 ML IV SCH ×2 (04:38→11:02)
[2020-02-21] MEDS: oxyCODONE 5 MG Tab PO PRN ×2 (04:38→11:03)
[2020-02-21] MEDS: LORazepam 1 MG Tab PO SCH (06:44)
[2020-02-21] MEDS: busPIRone 15 MG Tab PO SCH (08:14)
[2020-02-21] MEDS: guaiFENesin 600 MG Tab.ER PO SCH (08:14)
[2020-02-21] MEDS: Cyclobenzaprine 10 MG Tab PO SCH (08:14)
[2020-02-21] MEDS: Baclofen 10 MG Tab PO SCH ×2 (08:14→12:31)
[2020-02-21] MEDS: Hydrochlorothiazide 12.5 MG Cap PO SCH (08:15)
[2020-02-21] MEDS: Losartan 50 MG Tab PO SCH (08:15)
[2020-02-21] MEDS: Terazosin 5 MG Cap PO SCH (08:15)
[2020-02-21] MEDS: Magnesium Oxide 400 MG Tab PO SCH (08:15)
[2020-02-21] MEDS: Gabapentin 100 MG Cap PO SCH (08:17)
[2020-02-21] MEDS: Enoxaparin 40 MG/0.4 ML Syringe SUBCUT SCH (08:17)
[2020-02-21] MEDS: Carbidopa/Levodopa 25-100 MG Tab PO SCH ×2 (11:02→12:31)
[2020-02-21] MEDS: Polyethylene Glycol 3350 Powder 17 GM Packet PO SCH (11:44)
--- NOTE | 2020-02-21 12:27 | PCM.DCSUM1 ---
Discharge Summary - Hospital Course HPI Initial Comments: The patient was admitted secondary to sepsis and this was thought to be urinary source. The patient is a chronically ill 64-year-old gentleman who had been admitted to the emergency department from longterm on February 11, 2020 due to hypoxia, fever and cough. The patient was found to have severe left lower lobe pneumonia. 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 The patient has been in the hospital 4 times this year with pneumonia secondary to dysphagia. The patient has been able to participate in history of present illness however his speech is very slurred due to his neuromuscular disease. The patient's primary concern is his generalized pain. He has denied any fever or chills. The patient is bedridden and he also has been hypotensive. The patient's COVID-19 and influenza screen are negative. Assessment/Plan Comment:: Patient is a chronically ill 64-year-old gentleman who has been admitted as an inpatient for left lower lobe pneumonia. The patient has been hospitalized 4 times this year. He also meets enough criteria for a diagnosis of sepsis. Because of the patient's bedridden status due to his neuromuscular disease I do not believe that his hypotension is indicative of septic shock. The patient has been started on Rocephin 2 g IV daily. The patient is also being gently re suscitated with fluid in order to avoid fluid overload. The patient is currently on normal saline at 75 mL/h. The patient's fluid balance will be monitored. The patient has a history of chronic pain and his fentanyl and home Dilaudid will be continued along with oxycodone as necessary to help his pain. The patient has said that he can use a walker and PT OT and speech therapy has been ordered to assess the patient's dysphagia and monitor for concern for aspiration. The patient is in a DO NOT INTUBATE DO NOT RESUSCITATE category due to his progressive neuromuscular disease. Blood and urine cultures have been obtained. He will also be kept on mechanical soft diet. Vital signs will be monitored very closely and oxygen will be given as necessary to keep his saturations around 90%. The patient should be appropriate for discharge back to longterm in 2 to 3 days depending on his physical capacity. Diagnosis: Stroke: No - Discharge Data Discharge Date: 02/21/20 Discharge Disposition: DC/Tfer to SNF 03 Condition: Fair - Referral to Home Health Primary Care Physician: Nik Hughes MD - Discharge Diagnosis/Problem(s) (1) Pneumonia SNOMED Code(s): 691622656 ICD Code: J18.9 - PNEUMONIA, UNSPECIFIED ORGANISM Status: Resolved Priority: High Current Visit: Yes Qualifiers: Pneumonia type: due to unspecified organism Laterality: left Lung location: lower lobe of lung Qualified Code(s): J18.9 - Pneumonia, unspecified organism (2) Urinary tract infection SNOMED Code(s): 93027611 ICD Code: N39.0 - URINARY TRACT INFECTION, SITE NOT SPECIFIED Status: Resolved Priority: High Current Visit: Yes Qualifiers: Urinary tract infection type: site unspecified Hematuria presence: without hematuria Qualified Code(s): N39.0 - Urinary tract infection, site not specified - Patient Summary/Data Consults: Consultations 02/11/20 17:57 OT Evaluation and Treatment [CONS] Routine PT Evaluation and Treatment [CONS] Routine 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 The patient has been hospitalized 4 times this year. He also meets enough criteria for a diagnosis of sepsis. Because of the patient's bedridden status due to his neuromuscular disease I do not believe that his hypotension is indicative of septic shock. The patient has been started on Rocephin 2 g IV daily. The patient is also being gently resuscitated with fluid in order to avoid fluid overload. The patient is currently on normal saline at 75 mL/h. The patient's fluid balance will be monitored. The patient has a history of chronic pain and his fentanyl and home Dilaudid will be continued along with oxycodone as necessary to help his pain. The patient has said that he can use a walker and PT OT and speech therapy has b een ordered to assess the patient's dysphagia and monitor for concern for aspiration. The patient is in a DO NOT INTUBATE DO NOT RESUSCITATE category due to his progressive neuromuscular disease. Blood and urine cultures have been obtained. He will also be kept on mechanical soft diet. Vital signs will be monitored very closely and oxygen will be given as necessary to keep his saturations around 90%. The patient should be appropriate for discharge back to longterm in 2 to 3 days depending on his physical capacity. 02/12/2020 The patient is a chronically ill 64-year-old gentleman who is currently undergoing treatment for sepsis secondary to pneumonia. The patient is currently on ceftriaxone 2 g IV on a daily basis and this should also help with the patient's suspected urinary tract infection. Cultures are currently pending. The patient's antibiotics will be deescalated when causative organism is identified. The patient is still pending speech evaluation for his dysphagia. Have placed the patient on a mechanical soft diet. Physical therapy and Occupational Therapy are currently pending. The patient will also be continued on his chronic pain medications as he does have significant spasticity. I have ordered repeat laboratory studies for the morning. The patient is currently in a DO NOT INTUBATE/DO NOT RESUSCITATE category. The patient is also somewhat bedridden and debilitated and I do not think he has been able to maintain his blood pressures due to his neuromuscular disease. This does not represent septic shock. The patient should be appropriate to return to longterm once his pneumonia and sepsis has resolved. 02/13/2020 The patient is a 64-year-old gentleman who is currently undergoing sepsis treatment secondary to his pneumonia. The patient's current antibiotics, Rocephin 2 g IV daily, will continue and his fluids will also continue. The patient has had some improvement in his overall condition except he is still having considerable pain associated with the spasticity. I have increased the patient's fentanyl from 75 mcg to 100 mcg patch. I have also increased the patient's use of Dilaudid from 2 mg IV every 6 hours to every 4 hours. The patient is pending evaluation for dysphagia. For now the patient will continue on his mechanical diet which was previously noted at the longterm. Physical therapy and occupational therapy will continue. I have ordered repeat laboratory studies for the morning. The patient should be appropriate to return to his longterm once the pneumonia and sepsis has resolved. 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 Unknown if UTI played a role in his sepsis, therefore we will continue to treat both his pneumonia and UTI. Unfortunately, he is currently on Rocephin and that will not cover Pseudomonas in his urine. He will be switched over to Zosyn to cover his Pseudomonas. Patient will also be given 4 g of magnesium for his low magnesium levels of 1.6. CRP continues to be elevated at 15.4 but he has a normal white count. No anion gap. Appetite is satisfactory as well as his daily intake. Patient continues with significant pain. When I went in his room this morning his fentanyl patch which was switched to 100 mcg today had fallen off. He was given more oxycodone and new patch was to be placed. Patient will likely discharge in 4-5 more days. 02/15/2020 64-year-old male with chronic spasticity complaining of left upper arm pain today. This appears to be musculoskeletal most likely the long head of the bicep tendon. Patient does have physical therapy consulted. Infection seems to be improving with lowering of his white count. Magnesium is slightly decreased and he will get another 2 g of magnesium. Patient will complete at least 5 days of IV antibiotics for his urinary tract infection that was positive for Pseudomonas which is resistant to levofloxacin but sensitive to Zosyn. Zosyn was started yesterday. Patient should have another 3 to 4 days of IV antibiotics. 02/16/2020 The patient is a 64-year-old gentleman who had been admitted due to sepsis. The patient will be continued on antibiotics for at least 2 more days prior to transfer back to longterm. Patient is currently being treated for Pseudomonas urinary tract infection. Doing well otherwise today. The patient because of the severity of the infection should have at least another 2 to 3 days of IV antibiotics. Physical therapy is continue to evaluate the patient. Repeat laboratory studies have been ordered. 02/18/2020 The patient is a chronically ill 64-year-old gentleman who had been discharged yesterday to longterm. The patient's longterm was unable to administer IV Zosyn. The patient has been retained in hospitalization in order to receive at least 3 more days of IV Zosyn for his complicated urinary tract infection. The patient has been doing well at this point. Physical therapy will continue to evaluate patient. Repeat laboratory studies have been ordered. At this time the patient is awaiting placement. 02/19/2020 The patient is a 64-year-old gentleman who is currently awaiting placement. The patient had been discharged previously on February 17 2020 however, the patient was unable to receive IV antibiotics for his Pseudomonas urinary tract infection. The patient will need to have 2 more days of IV antibiotics prior to transitioning to longterm. Patient is to continue with his diet. He is also to have DVT prophylaxis. Physical therapy will continue to monitor patient. Overall, patient seems to be doing better. 02/20/2020 The patient is a 64-year-old gentleman who is currently awaiting placement. He had been previously discharged and retained in hospitalization in order to complete his IV antibiotic therapy. This will be completed today. The patient should also be appropriate for placement tomorrow back at his longterm. The patient will continue his current diet as tolerated. He is also to have DVT prophylaxis. Physical therapy will monitor the patient. He seems to be doing better today. Anticipate home tomorrow. - Patient Instructions Diet: Usual Diet as Tolerated, Mechanical Soft Activity: As Tolerated - Discharge Plan *PRESCRIPTION DRUG MONITORING PROGRAM REVIEWED*: No *COPY OF PRESCRIPTION DRUG MONITORING REPORT IN PATIENT DINESH: No Prescriptions/Med Rec: fentaNYL [Duragesic] 100 mcg TRDERM Q72H 30 Days #10 patch Home Medications: Home Meds Acetaminophen [Tylenol Arthritis Pain] 650 mg PO Q6H PRN #120 dose 10/22/19 [Rx] Benzonatate [Tessalon Perle] 100 mg PO TID PRN #30 capsule 10/22/19 [Rx] Carbidopa/Levodopa [Carbidopa-Levodopa 25-100] 1 tab PO QID #120 tablet 10/22/19 [Rx] Gabapentin [Neurontin] 200 mg PO TID #120 dose 10/22/19 [Rx] HYDROmorphone [Dilaudid] 2 mg PO Q6H PRN #40 dose 10/22/19 [Rx] Lactulose [Kristalose] 20 gm PO DAILY PRN #120 packet 10/22/19 [Rx] Losartan [Cozaar] 50 mg PO DAILY #30 dose 10/22/19 [Rx] Magnesium Oxide [Magnesium] 400 mg PO BID #60 dose 10/22/19 [Rx] Ondansetron [Zofran ODT] 4 mg PO Q6H PRN #20 tab.dis 10/22/19 [Rx] Simvastatin 20 mg PO BEDTIME #30 dose 10/22/19 [Rx] Terazosin [Hytrin] 5 mg PO BID #60 cap 10/22/19 [Rx] busPIRone [Buspar] 15 mg PO BID #60 tablet 10/22/19 [Rx] guaiFENesin [Fenesin IR] 400 mg PO Q4H PRN #60 tablet 10/22/19 [Rx] Baclofen 10 mg PO QID 12/14/19 [History] LORazepam [Ativan] 0.5 mg PO 12,16 12/14/19 [History] Sennosides/Docusate Sodium [Senna Plus 8.6-50 mg Tablet] 1 tab PO DAILY 12/14/19 [History] Sennosides/Docusate Sodium [Senna Plus Tablet] 1 each PO TID PRN 12/14/19 [History] Trolamine Salicylate/Aloe Vera [Aspercreme 10% Cream] 2 gm TP Q4H PRN 12/14/19 [History] hydroCHLOROthiazide [Hydrochlorothiazide] 12.5 mg PO DAILY 12/14/19 [History] polyethylene glycoL 3350 [MiraLAX] 17 gram PO DAILY 12/14/19 [History] Remove Patch 1 ea TRDERM Q72H each 12/20/19 [Rx] Celecoxib 200 mg PO DAILY 02/11/20 [History] Cyclobenzaprine [Flexeril] 5 mg PO TID 02/11/20 [History] LORazepam [Ativan] 1 mg PO 02/11/20 [History] Lactobacillus Acidophilus [Acidophilus Lactobacilli] 1 tab PO DAILY 02/11/20 [History] Sertraline [Zoloft] 50 mg PO BEDTIME 02/11/20 [History] guaiFENesin [Mucinex] 600 mg PO BID 02/11/20 [History] traZODone HCl [Trazodone HCl] 150 mg PO BEDTIME 02/11/20 [History] fentaNYL [Duragesic] 100 mcg TRDERM Q72H 30 Days #10 patch 02/17/20 [Rx] Oxygen Therapy Mode: Room Air Patient Handouts: Sepsis, Diagnosis, Adult, Urinary Tract Infection, Adult, Community-Acquired Pneumonia, Adult Referrals: Nik Hughes MD [Primary Care Provider] - 02/29/20 11:30 am (Please follow up with Dr. Hughes on February 28 at 11:30.) - Discharge Summary/Plan Comment DC Time >30 min.: Yes - General Info Date of Service: 02/21/20 Admission Dx/Problem (Free Text: Sepsis with pneumonia, UTI Subjective Update: Finished antibiotics. no complaints. Ready for d/c. Functional Status: Reports: Pain Controlled - Review of Systems General: Reports: No Symptoms HEENT: Reports: No Symptoms Pulmonary: Reports: No Symptoms Cardiovascular: Reports: No Symptoms Musculoskeletal: Reports: Arm Pain, Back Pain Skin: Reports: No Symptoms Psychiatric: Reports: No Symptoms - Patient Data Vitals - Most Recent: Last Vital Signs Temp 97.5 F 02/21/20 11:45 Pulse 83 02/21/20 11:45 Resp 16 02/21/20 11:45 BP 105/58 L 02/21/20 11:45 Pulse Ox 91 L 02/21/20 11:45 Weight - Most Recent: 157 lb I&O - Last 24 hours: Intake & Output 02/20/20 02/21/20 02/21/20 22:59 06:59 14:59 Intake Total 1050 500 180 Output Total 950 975 Balance 100 -475 180 Lab Results - Last 24 hrs: Laboratory Results - last 24 hr 02/21/20 02/21/20 Range/Units 04:15 04:15 WBC 4.81 (4.23-9.07) K/mm3 RBC 4.44 L (4.63-6.08) M/mm3 Hgb 12.1 L (13.7-17.5) gm/dl Hct 39.0 L (40.1-51.0) % MCV 87.8 (79.0-92.2) fl MCH 27.3 (25.7-32.2) pg MCHC 31.0 L (32.2-35.5) g/dl RDW Std Deviation 43.8 (35.1-43.9) fL Plt Count 196 (163-337) K/mm3 MPV 11.1 (9.4-12.3) fl Neut % (Auto) 48.3 (34.0-67.9) % Lymph % (Auto) 35.3 (21.8-53.1) % [place] % (Auto) 9.6 (5.3-12.2) % Eos % (Auto) 6.0 (0.8-7.0) Baso % (Auto) 0.4 (0.1-1.2) % Neut # (Auto) 2.32 (1.78-5.38) K/mm3 Lymph # (Auto) 1.70 (1.32-3.57) K/mm3 [place] # (Auto) 0.46 (0.30-0.82) K/mm3 Eos # (Auto) 0.29 (0.04-0.54) K/mm3 Baso # (Auto) 0.02 (0.01-0.08) K/mm3 Sodium 143 (136-145) mEq/L Potassium 3.6 (3.5-5.1) mEq/L Chloride 104 (98-107) mEq/L Carbon Dioxide 32 (21-32) mEq/L Anion Gap 10.6 (5-15) BUN 7 (7-18) mg/dL Creatinine 0.8 (0.7-1.3) mg/dL Est Cr Clr Drug Dosing 96.44 mL/min Estimated GFR (MDRD) > 60 (>60) mL/min BUN/Creatinine Ratio 8.8 L (14-18) Glucose 73 L (80-115) mg/dL Calcium 8.9 (8.5-10.1) mg/dL Med Orders - Current: Current Medications Acetaminophen (Tylenol) 650 mg PO Q4H PRN PRN Reason: Pain (Mild 1-3)/fever Last Admin: 02/20/20 08:52 Dose: 650 mg Documented by: Baclofen (Lioresal) 10 mg PO QID [facility] Last Admin: 02/21/20 08:14 Dose: 10 mg Documented by: Benzocaine/Menthol (Cepacol Sore Throat) 1 lozenge MUCMEM Q4H PRN PRN Reason: Sore Throat Benzonatate (Tessalon Perles) 100 mg PO TID PRN PRN Reason: Cough Last Admin: 02/18/20 12:20 Dose: 100 mg Documented by: Buspirone HCl (Buspar) 15 mg PO BID [facility] Last Admin: 02/21/20 08:14 Dose: 15 mg Documented by: Carbidopa/Levodopa (Sinemet 25-100 Mg) 1 tab PO QID [facility] Last Admin: 02/21/20 11:02 Dose: 1 tab Documented by: Cyclobenzaprine HCl (Flexeril) 5 mg PO TID [facility] Last Admin: 02/21/20 08:14 Dose: 5 mg Documented by: Enoxaparin Sodium (Lovenox) 40 mg SUBCUT DAILY [facility] Last Admin: 02/21/20 08:17 Dose: 40 mg Documented by: Fentanyl (Duragesic) 100 mcg TRDERM Q72H [facility] Last Admin: 02/20/20 09:52 Dose: 100 mcg Documented by: Gabapentin (Neurontin) 200 mg PO TID [facility] Last Admin: 02/21/20 08:17 Dose: 200 mg Documented by: Guaifenesin (Mucinex) 600 mg PO BID [facility] Last Admin: 02/21/20 08:14 Dose: 600 mg Documented by: Hydrochlorothiazide (Hydrochlorothiazide) 12.5 mg PO DAILY [facility] Last Admin: 02/21/20 08:15 Dose: 12.5 mg Documented by: Hydromorphone HCl (Dilaudid) 2 mg PO Q4H PRN PRN Reason: Pain (severe 7-10) Last Admin: 02/20/20 18:26 Dose: 2 mg Documented by: Lactulose (Cephulac) 20 gm PO DAILY PRN PRN Reason: Constipation Last Admin: 02/14/20 09:45 Dose: 20 gm Documented by: Lorazepam (Ativan) 1 mg PO BID@07,19 [facility] Last Admin: 02/21/20 06:44 Dose: 1 mg Documented by: Lorazepam (Ativan) 0.5 mg PO BID@1200,1600 [facility] Last Admin: 02/20/20 16:12 Dose: 0.5 mg Documented by: Losartan Potassium (Cozaar) 50 mg PO DAILY [facility] Last Admin: 02/21/20 08:15 Dose: 50 mg Documented by: Magnesium Oxide (Magnesium Oxide) 400 mg PO BID [facility] Last Admin: 02/21/20 08:15 Dose: 400 mg Documented by: Miscellaneous Information (Remove Patch) 1 ea TRDERM Q72H [facility] Last Admin: 02/20/20 09:54 Dose: 1 ea Documented by: Ondansetron HCl (Zofran) 4 mg IV Q6H PRN PRN Reason: Nausea/Vomiting Ondansetron HCl (Zofran Odt) 4 mg PO Q6H PRN PRN Reason: nausea, able to take PO Last Admin: 02/19/20 08:01 Dose: 4 mg Documented by: Oxycodone HCl (Oxycodone) 5 mg PO Q4H PRN PRN Reason: Pain (moderate 4-6) Last Admin: 02/21/20 11:03 Dose: 5 mg Documented by: Polyethylene Glycol (Miralax) 17 gm PO DAILY PRN PRN Reason: Constipation Last Admin: 02/15/20 08:19 Dose: 17 gm Documented by: Polyethylene Glycol (Miralax) 17 gm PO DAILY [facility] Last Admin: 02/21/20 11:44 Dose: Not Given Documented by: Senna/Docusate Sodium (Senna Plus) 1 tab PO DAILY [facility] Last Admin: 02/21/20 11:44 Dose: Not Given Documented by: Sertraline HCl (Zoloft) 50 mg PO BEDTIME [facility] Last Admin: 02/20/20 20:33 Dose: 50 mg Documented by: Simvastatin (Zocor) 20 mg PO BEDTIME [facility] Last Admin: 02/20/20 20:34 Dose: 20 mg Documented by: Terazosin HCl (Hytrin) 5 mg PO BID [facility] Last Admin: 02/21/20 08:15 Dose: 5 mg Documented by: Trazodone HCl (Trazodone) 150 mg PO BEDTIME [facility] Last Admin: 02/20/20 20:33 Dose: 150 mg Documented by: Trolamine Salicylate (Aspercreme 10%) 0 gm TOP Q4H PRN PRN Reason: Pain (mild 1-3) Last Admin: 02/20/20 08:51 Dose: 1 applic Documented by: Discontinued Medications Fentanyl (Duragesic) 75 mcg TRDERM Q72H [facility] Last Admin: 02/12/20 02:05 Dose: Not Given Documented by: Fentanyl (Duragesic) 75 mcg TRDERM Q72H [facility] Last Admin: 02/13/20 08:33 Dose: 75 mcg Documented by: Fentanyl (Duragesic) 100 mcg TRDERM Q72H [facility] Last Admin: 02/13/20 12:26 Dose: 100 mcg Documented by: Hydromorphone HCl (Dilaudid) 2 mg PO Q6H PRN PRN Reason: Pain (severe 7-10) Last Admin: 02/13/20 08:31 Dose: 2 mg Documented by: Lactated Ringer's (Ringers, Lactated) 1,000 mls @ 999 mls/hr IV .BOLUS ONE Stop: 12/25/20 18:15 Last Admin: 02/11/20 17:15 Dose: 999 mls/hr Documented by: Ceftriaxone Sodium 2 gm/ (Sodium Chloride) 100 mls @ 200 mls/hr IV Q24H [facility] Last Admin: 02/11/20 17:39 Dose: 200 mls/hr Documented by: Sodium Chloride (Normal Saline) 1,000 mls @ 999 mls/hr IV ONETIME ONE Stop: 02/11/20 18:23 Last Admin: 02/11/20 17:40 Dose: 999 mls/hr Documented by: Sodium Chloride (Normal Saline) 1,000 mls @ 75 mls/hr IV ASDIRECTED [facility] Last Admin: 02/16/20 23:34 Dose: 75 mls/hr Documented by: Ceftriaxone Sodium 2 gm/ (Sodium Chloride) 100 mls @ 200 mls/hr IV Q24H [facility] Last Admin: 02/13/20 17:08 Dose: 200 mls/hr Documented by: Magnesium Sulfate/Dextrose 1 (gm/ Premix) 100 mls @ 100 mls/hr IV ONETIME ONE Stop: 02/13/20 08:08 Last Admin: 02/13/20 08:00 Dose: 100 mls/hr Documented by: Magnesium Sulfate 4 gm/ Premix 50 mls @ 12.5 mls/hr IV ONETIME ONE Stop: 02/14/20 12:56 Last Admin: 02/14/20 09:51 Dose: 12.5 mls/hr Documented by: Piperacillin Sod/Tazobactam (Sod 4.5 gm/ Sodium Chloride) 100 mls @ 200 mls/hr IV ONETIME ONE Stop: 02/14/20 11:59 Last Admin: 02/14/20 12:14 Dose: 200 mls/hr Documented by: Piperacillin Sod/Tazobactam (Sod 4.5 gm/ Sodium Chloride) 100 mls @ 25 mls/hr IV Q8H [facility] Last Admin: 02/21/20 11:02 Dose: 25 mls/hr Documented by: Magnesium Sulfate 2 gm/ Premix 50 mls @ 25 mls/hr IV ONETIME ONE Stop: 02/15/20 15:29 Last Admin: 02/15/20 13:56 Dose: 25 mls/hr Documented by: Magnesium Sulfate (Magnesium Sulfate In Water Premix) Confirm Administered Dose 2 gm in 50 mls @ as directed .ROUTE .STK-MED ONE Stop: 02/15/20 13:40 Last Admin: 02/15/20 13:56 Dose: Not Given Documented by: Lorazepam (Ativan) 0.5 mg PO BID [facility] Last Admin: 02/13/20 19:59 Dose: 0.5 mg Documented by: Losartan Potassium (Cozaar) 50 mg PO DAILY [facility] Last Admin: 02/17/20 10:20 Dose: 50 mg Documented by: Magnesium Hydroxide (Milk Of Magnesia) 30 ml PO ONETIME ONE Stop: 02/19/20 09:01 Last Admin: 02/19/20 08:04 Dose: 30 ml Documented by: Miscellaneous Information (Remove Patch) 1 ea TRDERM Q72H [facility] Last Admin: 02/12/20 02:05 Dose: Not Given Documented by: Miscellaneous Information (Remove Patch) 1 ea TRDERM Q72H [facility] Last Admin: 02/13/20 08:40 Dose: 1 ea Documented by: Non-Formulary Medication (Guaifenesin) 400 mg PO Q4H PRN PRN Reason: Cough - Exam Quality Assessment: Denies: Supplemental Oxygen General: Reports: Alert, Oriented HEENT: Reports: Pupils Equal, Mucous Membr. Moist/[place] Neck: Reports: Supple Lungs: Reports: Clear to Auscultation, Normal Respiratory Effort Cardiovascular: Reports: Regular Rate, Regular Rhythm GI/Abdominal Exam: Normal Bowel Sounds, Soft, Non-Tender, No Distention Extremities: No Pedal Edema, Normal Capillary Refill Skin: Reports: Warm, Dry *Q Meaningful Use (DIS) - VTE *Q VTE Mechanical Contraindications *Q: At Risk for Falls
[2020-02-21] MEDS: LORazepam 0.5 MG Tab PO SCH (12:31)
== END 2020-02-21 13:05 | DRG 871 ==
LOC: JD.ED 16:03 → JD.MS 17:57
PROVIDERS: ADMIT Internal Medicine; ATTEND Internal Medicine
DX: R05 Cough (principal); A41.9 Sepsis, unspecified organism; J18.9 Pneumonia, unspecified organism; N30.00 Acute cystitis without hematuria; G23.1 Progressive supranuclear ophthalmoplegia [Steele-Richardson-Olszewski]; G54.7 Phantom limb syndrome without pain; N39.0 Urinary tract infection, site not specified; I10 Essential (primary) hypertension; Z66 Do not resuscitate; E70.0 Classical phenylketonuria; I95.9 Hypotension, unspecified; R33.9 Retention of urine, unspecified; G89.29 Other chronic pain; Z74.01 Bed confinement status; Z20.828 Contact with and (suspected) exposure to other viral communicable diseases; M79.622 Pain in left upper arm; B96.5 Pseudomonas (aeruginosa) (mallei) (pseudomallei) as the cause of diseases classified elsewhere; Z79.899 Other long term (current) drug therapy; H54.7 Unspecified visual loss; E78.00 Pure hypercholesterolemia, unspecified; K21.9 Gastro-esophageal reflux disease without esophagitis; K44.9 Diaphragmatic hernia without obstruction or gangrene; N40.1 Benign prostatic hyperplasia with lower urinary tract symptoms; R33.8 Other retention of urine; M19.90 Unspecified osteoarthritis, unspecified site; M54.2 Cervicalgia; G20 Parkinson's disease; F41.9 Anxiety disorder, unspecified; R13.10 Dysphagia, unspecified; Z99.3 Dependence on wheelchair; Z20.822 Contact with and (suspected) exposure to COVID-19
CPT/HCPCS: 0240U; 36415; 51798; 71045; 80048; 80053; 81001; 83605; 83735; 84100; 84484; 85025; 85610; 85730; 86140; 87040; 87086; 87088; 87186; 93005; 94760; 96365; 97110; 97140; 97162; 97165; 97530; 99285; 93010; 99283; A9270-GY; J0696; J1650; J2543; J3475; J7030; J7050; J7120

== ENCOUNTER 2020-02-25 12:51 | Inpatient (IN) | payer MEDICARE, OTHER ==
[2020-02-25] MEDS ORDERED: Sodium Chloride 0.9% 1,000 ML IV ONE (13:06)
[2020-02-25] MEDS ORDERED: Sodium Chloride 0.9% 10 ML Syringe FLUSH PRN ×2 (13:06→14:43)
--- NOTE | 2020-02-25 14:22 | EDM.PDOC ---
ED HPI GENERAL MEDICAL PROBLEM - General Chief Complaint: Respiratory Problem Stated Complaint: [facility] Time Seen by Provider: 02/25/20 12:55 Source of Information: Reports: Patient, Fdc Records, RN Notes Reviewed History Limitations: Reports: No Limitations - History of Present Illness INITIAL COMMENTS - FREE TEXT/NARRATIVE: Patient is a 64-year-old male presenting to the emergency department from [facility] with complaints of hypoxia. Nursing staff reports that patient's oxygen saturation was found to be 85% on room air prior to coming to ER. Patient does have a slight cough which she states is chronic. Otherwise he states he feels good. He has had no fever or chills. Denies nausea, vomiting, or diarrhea. Patient does have a history of aspiration pneumonia. He is currently on nectar thick liquids, but he states that he does cough when he drinks water. Patient was recently hospitalized for a left lower lobe pneumonia as well as urinary tract infection. He was discharged back to the [facility] facility 4 days ago on room air. On arrival to ER, oxygen saturation was found to be 84% on room air. Supplemental O2 has not been applied at this point is we will collect an ABG and then place on O2. Treatments [employer]OR [employer]TER[employer]ATEGY: Reports: IV/IO, Oxygen Left Shoulder Pain Score (Numeric/FACES): 9 - Related Data Allergies Allergy/AdvReac Type Severity Reaction Status Date / Time No Known Allergies Allergy Verified 02/25/20 16:33 Home Meds: Home Meds Acetaminophen [Tylenol Arthritis Pain] 650 mg PO Q6H PRN #120 dose 10/22/19 [Rx] Benzonatate [Tessalon Perle] 100 mg PO TID PRN #30 capsule 10/22/19 [Rx] Carbidopa/Levodopa [Carbidopa-Levodopa 25-100] 1 tab PO QID #120 tablet 10/22/19 [Rx] Gabapentin [Neurontin] 200 mg PO TID #120 dose 10/22/19 [Rx] Lactulose [Kristalose] 20 gm PO DAILY PRN #120 packet 10/22/19 [Rx] Losartan [Cozaar] 50 mg PO DAILY #30 dose 10/22/19 [Rx] Magnesium Oxide [Magnesium] 400 mg PO BID #60 dose 10/22/19 [Rx] Ondansetron [Zofran ODT] 4 mg PO Q6H PRN #20 tab.dis 10/22/19 [Rx] Simvastatin 20 mg PO BEDTIME #30 dose 10/22/19 [Rx] Terazosin [Hytrin] 5 mg PO BID #60 cap 10/22/19 [Rx] busPIRone [Buspar] 15 mg PO BID #60 tablet 10/22/19 [Rx] guaiFENesin [Fenesin IR] 400 mg PO Q4H PRN #60 tablet 10/22/19 [Rx] Baclofen 10 mg PO QID 12/14/19 [History] LORazepam [Ativan] 1 mg PO ,16 12/14/19 [History] Sennosides/Docusate Sodium [Senna Plus 8.6-50 mg Tablet] 1 tab PO DAILY 12/14/19 [History] Sennosides/Docusate Sodium [Senna Plus Tablet] 1 each PO TID PRN 12/14/19 [History] Trolamine Salicylate/Aloe Vera [Aspercreme 10% Cream] 2 gm TP Q4H PRN 12/14/19 [History] hydroCHLOROthiazide [Hydrochlorothiazide] 12.5 mg PO DAILY 12/14/19 [History] polyethylene glycoL 3350 [MiraLAX] 17 gram PO DAILY 12/14/19 [History] Remove Patch 1 ea TRDERM Q72H each 12/20/19 [Rx] Celecoxib 200 mg PO DAILY 02/11/20 [History] Cyclobenzaprine [Flexeril] 5 mg PO TID 02/11/20 [History] LORazepam [Ativan] 1 mg PO 02/11/20 [History] Lactobacillus Acidophilus [Acidophilus Lactobacilli] 1 tab PO DAILY 02/11/20 [History] Sertraline [Zoloft] 50 mg PO BEDTIME 02/11/20 [History] guaiFENesin [Mucinex] 600 mg PO BID 02/11/20 [History] traZODone HCl [Trazodone HCl] 150 mg PO BEDTIME 02/11/20 [History] fentaNYL [Duragesic] 100 mcg TRDERM Q72H 30 Days #10 patch 02/17/20 [Rx] HYDROmorphone [Dilaudid] 2 mg PO Q6H PRN 02/26/20 [History] Past Medical History HEENT History: Reports: Impaired Vision Other HEENT History: Wears glasses Cardiovascular History: Reports: High Cholesterol, Hypertension Respiratory History: Reports: Intubation, Previous, Pneumonia, Recurrent Gastrointestinal History: Reports: Chronic Constipation, GERD, Hiatal Hernia Genitourinary History: Reports: BPH, Retention, Urinary, UTI, Recurrent Musculoskeletal History: Reports: Arthritis, Back Pain, Chronic, Osteoarthritis Other Musculoskeletal History: fall; fractured ribs; muscle spasms; polyarthritis; progressive supranuclear opthalmoplegia; cervical disc Neurological History: Reports: Parkinson's, Speech Problems, Vertigo Other Neuro History: 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 Psychiatric History: Reports: Anxiety, Depression Other Psychiatric History: insomnia - Past Surgical History HEENT Surgical History: Reports: None Cardiovascular Surgical History: Reports: None Male Surgical History: Reports: Suprapubic Catheter Placement - History Comment History Comment: Patient has chronic severe generalized pain. He is currently on Dilaudid 2 mg 3 times daily and fentanyl patch. 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 Social & Family History - Family History Family Medical History: No Pertinent Family History - Tobacco Use Tobacco Use Status *Q: Never Tobacco User - Caffeine Use Caffeine Use: Reports: None - Living Situation & Occupation Living situation: Reports: Single, Alone, Extended Care Facility ([facility] Occupation: Disabled ED ROS GENERAL - Review of Systems Review Of Systems: See Below Constitutional: Denies: Fever, Chills HEENT: Reports: No Symptoms Respiratory: Reports: Cough. Denies: Shortness of Breath, Pleuritic Chest Pain Cardiovascular: Reports: No Symptoms Endocrine: Reports: No Symptoms GI/Abdominal: Reports: No Symptoms. Denies: Abdominal Pain, Diarrhea, Nausea, Vomiting : Reports: No Symptoms Musculoskeletal: Reports: No Symptoms Skin: Reports: No Symptoms Neurological: Reports: No Symptoms Psychiatric: Reports: No Symptoms Hematologic/Lymphatic: Reports: No Symptoms Immunologic: Reports: No Symptoms ED EXAM, GENERAL - Physical Exam Exam: See Below Exam Limited By: No Limitations General Appearance: Alert, WD/WN, No Apparent Distress Respiratory/Chest: No Respiratory Distress, Lungs Clear, Normal Breath Sounds, No Accessory Muscle Use, Chest Non-Tender Cardiovascular: Normal Peripheral Pulses, Regular Rate, Rhythm, No Edema, No Gallop, No JVD, No Murmur, No Rub GI/Abdominal: Normal Bowel Sounds, Soft, Non-Tender, No Organomegaly, No Distention, No Abnormal Bruit, No Mass Neurological: Alert, Oriented, Normal Cognition Psychiatric: Normal Affect, Normal Mood Skin Exam: Warm, Dry, Intact, Normal Color, No Rash Course - Vital Signs Last Recorded V/S: Last Vital Signs Temp 98.1 F 02/26/20 15:57 Pulse 64 02/26/20 15:57 Resp 16 02/26/20 15:57 BP 111/59 L 02/26/20 15:57 Pulse Ox 93 L 02/26/20 17:41 - Orders/Labs/Meds Orders: Medication Orders Acetaminophen (Tylenol) 650 mg PO Q6H PRN PRN Reason: Pain Baclofen (Lioresal) 10 mg PO QID [facility] Last Admin: 02/26/20 16:17 Dose: 10 mg Documented by: Admin: 02/26/20 14:00 Dose: 10 mg Documented by: Admin: 02/26/20 08:52 Dose: 10 mg Documented by: Admin: 02/25/20 21:46 Dose: 10 mg Documented by: PAYTON Benzonatate (Tessalon Perles) 100 mg PO TID PRN PRN Reason: Cough Buspirone HCl (Buspar) 15 mg PO BID [facility] Last Admin: 02/26/20 08:52 Dose: 15 mg Documented by: Admin: 02/25/20 21:48 Dose: 15 mg Documented by: PAYTON Carbidopa/Levodopa (Sinemet 25-100 Mg) 1 tab PO QID [facility] Last Admin: 02/26/20 16:17 Dose: 1 tab Documented by: Admin: 02/26/20 14:00 Dose: 1 tab Documented by: Admin: 02/26/20 08:52 Dose: 1 tab Documented by: Admin: 02/25/20 21:47 Dose: 1 tab Documented by: PAYTON Celecoxib (Celebrex) 200 mg PO DAILY [facility] Last Admin: 02/26/20 08:51 Dose: 200 mg Documented by: PANCHO Cyclobenzaprine HCl (Flexeril) 5 mg PO TID [facility] Last Admin: 02/26/20 14:16 Dose: 5 mg Documented by: Admin: 02/26/20 08:52 Dose: 5 mg Documented by: Admin: 02/25/20 21:46 Dose: 5 mg Documented by: PAYTON Enoxaparin Sodium (Lovenox) 40 mg SUBCUT DAILY [facility] Last Admin: 02/26/20 08:53 Dose: 40 mg Documented by: PANCHO Fentanyl (Duragesic) 100 mcg TRDERM Q72H [facility] Last Admin: 02/26/20 17:34 Dose: 100 mcg Documented by: JEANETTE Gabapentin (Neurontin) 200 mg PO TID [facility] Last Admin: 02/26/20 14:17 Dose: 200 mg Documented by: Admin: 02/26/20 08:49 Dose: 200 mg Documented by: Admin: 02/25/20 21:45 Dose: 200 mg Documented by: PAYTON Guaifenesin (Robitussin) 400 mg PO Q4H PRN PRN Reason: Cough Guaifenesin (Mucinex) 600 mg PO BID [facility] Last Admin: 02/26/20 08:52 Dose: 600 mg Documented by: Admin: 02/25/20 21:46 Dose: 600 mg Documented by: PAYTON Hydrochlorothiazide (Hydrochlorothiazide) 12.5 mg PO DAILY [facility] Last Admin: 02/26/20 08:49 Dose: 12.5 mg Documented by: PANCHO Hydromorphone HCl (Dilaudid) 2 mg PO Q6H PRN PRN Reason: Pain Last Admin: 02/26/20 17:38 Dose: 2 mg Documented by: JEANETTE Sodium Chloride (Normal Saline) 1,000 mls @ 100 mls/hr IV ASDIRECTED [facility] Last Admin: 02/26/20 10:51 Dose: 100 mls/hr Documented by: Infusion: 02/26/20 09:36 Dose: 100 mls/hr Documented by: Admin: 02/25/20 23:36 Dose: 100 mls/hr Documented by: PAYTON Cefepime HCl 2 gm/ Premix 50 mls @ 100 mls/hr IV Q8H [facility] Last Admin: 02/26/20 14:17 Dose: 100 mls/hr Documented by: Infusion: 02/26/20 06:55 Dose: 100 mls/hr Documented by: Admin: 02/26/20 06:25 Dose: 100 mls/hr Documented by: Infusion: 02/26/20 00:06 Dose: 100 mls/hr Documented by: Admin: 02/25/20 23:36 Dose: 100 mls/hr Documented by: PAYTON Vancomycin HCl 1 gm/ Sodium (Chloride) 250 mls @ 250 mls/hr IV Q12H [facility] Last Admin: 02/26/20 11:24 Dose: 250 mls/hr Documented by: Infusion: 02/26/20 00:36 Dose: 250 mls/hr Documented by: Admin: 02/25/20 23:36 Dose: 250 mls/hr Documented by: PAYTON Lactulose (Cephulac) 20 gm PO DAILY PRN PRN Reason: Constipation Lorazepam (Ativan) 1 mg PO BID@1200,1600 [facility] Last Admin: 02/26/20 16:17 Dose: 1 mg Documented by: Admin: 02/26/20 11:24 Dose: 1 mg Documented by: PANCHO Lorazepam (Ativan) 1 mg PO BID@0700,1900 [facility] Last Admin: 02/26/20 06:25 Dose: 1 mg Documented by: PAYTON Losartan Potassium (Cozaar) 50 mg PO DAILY [facility] Last Admin: 02/26/20 08:49 Dose: 50 mg Documented by: PANCHO Magnesium Oxide (Magnesium Oxide) 400 mg PO BID [facility] Last Admin: 02/26/20 08:51 Dose: 400 mg Documented by: Admin: 02/25/20 21:45 Dose: 400 mg Documented by: PAYTON Miscellaneous Information (Remove Patch) 1 ea TRDERM Q72H [facility] Last Admin: 02/26/20 17:39 Dose: Not Given Documented by: JEANETTE Vanco Trough 0 each .XX ONETIME ONE Stop: 02/27/20 10:01 Ondansetron HCl (Zofran Odt) 4 mg PO Q6H PRN PRN Reason: nausea, able to take PO Oxycodone HCl (Oxycodone) 5 mg PO Q4H PRN PRN Reason: Pain (moderate 4-6) Last Admin: 02/26/20 11:23 Dose: 5 mg Documented by: Admin: 02/26/20 06:25 Dose: 5 mg Documented by: PAYTON Polyethylene Glycol (Miralax) 17 gm PO DAILY [facility] Last Admin: 02/26/20 08:49 Dose: 17 gm Documented by: PANCHO Saccharomyces Boulardii (Florastor) 500 mg PO BID [facility] Last Admin: 02/26/20 08:56 Dose: 500 mg Documented by: PANCHO Senna/Docusate Sodium (Senna Plus) 1 tab PO DAILY [facility] Last Admin: 02/26/20 08:51 Dose: 1 tab Documented by: PANCHO Senna/Docusate Sodium (Senna Plus) 1 tab PO TID PRN PRN Reason: Constipation Sertraline HCl (Zoloft) 50 mg PO BEDTIME [facility] Last Admin: 02/25/20 21:47 Dose: 50 mg Documented by: PAYTON Simvastatin (Zocor) 20 mg PO BEDTIME [facility] Last Admin: 02/25/20 21:47 Dose: 20 mg Documented by: PAYTON Sodium Chloride (Saline Flush) 10 ml FLUSH ASDIRECTED PRN PRN Reason: Keep Vein Open Last Admin: 02/25/20 14:17 Dose: 10 ml Documented by: CHARLIE Terazosin HCl (Hytrin) 5 mg PO BID [facility] Last Admin: 02/26/20 08:51 Dose: 5 mg Documented by: Admin: 02/25/20 21:45 Dose: 5 mg Documented by: PAYTON Trazodone HCl (Trazodone) 150 mg PO BEDTIME [facility] Last Admin: 02/25/20 21:47 Dose: 150 mg Documented by: PAYTON Trolamine Salicylate (Aspercreme 10%) 0 gm TOP Q4H PRN PRN Reason: Pain (mild 1-3) Vancomycin HCl (Pharmacy To Dose - Vancomycin) 1 dose .XX ASDIRECTED [facility] Labs: Laboratory Tests 02/25/20 02/25/20 02/25/20 Range/Units 13:20 13:35 13:35 WBC 12.17 H (4.23-9.07) K/mm3 RBC 4.53 L (4.63-6.08) M/mm3 Hgb 12.3 L (13.7-17.5) gm/dl Hct 40.3 (40.1-51.0) % MCV 89.0 (79.0-92.2) fl MCH 27.2 (25.7-32.2) pg MCHC 30.5 L (32.2-35.5) g/dl RDW Std Deviation 45.2 H (35.1-43.9) fL Plt Count 217 (163-337) K/mm3 MPV 11.2 (9.4-12.3) fl Neutrophils % (Manual) 87 H (40-60) % Band Neutrophils % 0 (0-10) % Lymphocytes % (Manual) 9 L (20-40) % Atypical Lymphs % 0 % Monocytes % (Manual) 2 (2-10) % Eosinophils % (Manual) 2 (0.8-7.0) % Basophils % (Manual) 0 L (0.2-1.2) Platelet Estimate Adequate Plt Morphology Comment Normal RBC Morph Comment Normal PT 12.4 H (9.7-12.0) SECONDS INR 1.16 D-Dimer, Quantitative 1.22 H (0.19-0.50) mg/L Puncture Site Rt radial ABG pH 7.36 (7.35-7.45) ABG pCO2 50.1 H (35.0-45.0) mmHg ABG pO2 51.0 L (80.0-100.0) mmHg ABG HCO3 27.9 H (22.0-26.0) meq/L ABG O2 Saturation 85.9 L (96.0-97.0) % ABG Base Excess 2.3 H (-2-2.0) Nicholas Test Positive A-a Gradient 36 mmHg O2 Delivery Device Room air Oxygen Flow Rate 0.0 FiO2 21.00 (21.00-100.00) % Sodium (136-145) mEq/L Potassium (3.5-5.1) mEq/L Chloride (98-107) mEq/L Carbon Dioxide (21-32) mEq/L Anion Gap (5-15) BUN (7-18) mg/dL Creatinine (0.7-1.3) mg/dL Est Cr Clr Drug Dosing Estimated GFR (MDRD) (>60) mL/min BUN/Creatinine Ratio (14-18) Glucose (80-115) mg/dL Lactic Acid (0.4-2.0) mmol/L Calcium (8.5-10.1) mg/dL Magnesium (1.8-2.4) mg/dl Total Bilirubin (0.2-1.0) mg/dL AST (15-37) U/L ALT (16-63) U/L Alkaline Phosphatase (46-116) U/L Troponin I (0.00-0.056) ng/mL C-Reactive Protein (<1.0) mg/dL NT-Pro-B Natriuret Pep (0-125) pg/mL Total Protein (6.4-8.2) g/dl Albumin (3.4-5.0) g/dl Globulin gm/dL Albumin/Globulin Ratio (1-2) Urine Color (Yellow) Urine Appearance (Clear) Urine pH (5.0-8.0) Ur Specific Amb[place] (1.005-1.030) Urine Protein (Negative) Urine Glucose (UA) (Negative) Urine Ketones (Negative) Urine Occult Blood (Negative) Urine Nitrite (Negative) Urine Bilirubin (Negative) Urine Urobilinogen (0.2-1.0) Ur Leukocyte Esterase (Negative) Urine RBC (0-5) /hpf Urine WBC (0-5) /hpf Ur Squamous Epith Cells (0-5) /hpf Urine Bacteria (FEW) /hpf Urine Mucus (FEW) /hpf Influenza Type A RNA (NEGATIVE) Influenza Type B RNA (NEGATIVE) SARS-CoV-2 RNA ([facility]) (NEGATIVE) 02/25/20 02/25/20 02/25/20 Range/Units 13:35 13:35 13:35 WBC (4.23-9.07) K/mm3 RBC (4.63-6.08) M/mm3 Hgb (13.7-17.5) gm/dl Hct (40.1-51.0) % MCV (79.0-92.2) fl MCH (25.7-32.2) pg MCHC (32.2-35.5) g/dl RDW Std Deviation (35.1-43.9) fL Plt Count (163-337) K/mm3 MPV (9.4-12.3) fl Neutrophils % (Manual) (40-60) % Band Neutrophils % (0-10) % Lymphocytes % (Manual) (20-40) % Atypical Lymphs % % Monocytes % (Manual) (2-10) % Eosinophils % (Manual) (0.8-7.0) % Basophils % (Manual) (0.2-1.2) Platelet Estimate Plt Morphology Comment RBC Morph Comment PT (9.7-12.0) SECONDS INR D-Dimer, Quantitative (0.19-0.50) mg/L Puncture Site ABG pH (7.35-7.45) ABG pCO2 (35.0-45.0) mmHg ABG pO2 (80.0-100.0) mmHg ABG HCO3 (22.0-26.0) meq/L ABG O2 Saturation (96.0-97.0) % ABG Base Excess (-2-2.0) Nicholas Test A-a Gradient mmHg O2 Delivery Device Oxygen Flow Rate FiO2 (21.00-100.00) % Sodium 140 (136-145) mEq/L Potassium 3.9 (3.5-5.1) mEq/L Chloride 102 (98-107) mEq/L Carbon Dioxide 30 (21-32) mEq/L Anion Gap 11.9 (5-15) BUN 20 H (7-18) mg/dL Creatinine 1.1 (0.7-1.3) mg/dL Est Cr Clr Drug Dosing TNP Estimated GFR (MDRD) > 60 (>60) mL/min BUN/Creatinine Ratio 18.2 H (14-18) Glucose 154 H (80-115) mg/dL Lactic Acid 1.3 (0.4-2.0) mmol/L Calcium 9.0 (8.5-10.1) mg/dL Magnesium 2.1 (1.8-2.4) mg/dl Total Bilirubin 0.7 (0.2-1.0) mg/dL AST 9 L (15-37) U/L ALT 8 L (16-63) U/L Alkaline Phosphatase 67 (46-116) U/L Troponin I < 0.017 (0.00-0.056) ng/mL C-Reactive Protein 9.1 H* (<1.0) mg/dL NT-Pro-B Natriuret Pep 38 (0-125) pg/mL Total Protein 7.0 (6.4-8.2) g/dl Albumin 3.0 L (3.4-5.0) g/dl Globulin 4.0 gm/dL Albumin/Globulin Ratio 0.8 L (1-2) Urine Color (Yellow) Urine Appearance (Clear) Urine pH (5.0-8.0) Ur Specific [place] (1.005-1.030) Urine Protein (Negative) Urine Glucose (UA) (Negative) Urine Ketones (Negative) Urine Occult Blood (Negative) Urine Nitrite (Negative) Urine Bilirubin (Negative) Urine Urobilinogen (0.2-1.0) Ur Leukocyte Esterase (Negative) Urine RBC (0-5) /hpf Urine WBC (0-5) /hpf Ur Squamous Epith Cells (0-5) /hpf Urine Bacteria (FEW) /hpf Urine Mucus (FEW) /hpf Influenza Type A RNA (NEGATIVE) Influenza Type B RNA (NEGATIVE) SARS-CoV-2 RNA ([facility]) (NEGATIVE) 02/25/20 02/25/20 Range/Units 14:45 14:50 WBC (4.23-9.07) K/mm3 RBC (4.63-6.08) M/mm3 Hgb (13.7-17.5) gm/dl Hct (40.1-51.0) % MCV (79.0-92.2) fl MCH (25.7-32.2) pg MCHC (32.2-35.5) g/dl RDW Std Deviation (35.1-43.9) fL Plt Count (163-337) K/mm3 MPV (9.4-12.3) fl Neutrophils % (Manual) (40-60) % Band Neutrophils % (0-10) % Lymphocytes % (Manual) (20-40) % Atypical Lymphs % % Monocytes % (Manual) (2-10) % Eosinophils % (Manual) (0.8-7.0) % Basophils % (Manual) (0.2-1.2) Platelet Estimate Plt Morphology Comment RBC Morph Comment PT (9.7-12.0) SECONDS INR D-Dimer, Quantitative (0.19-0.50) mg/L Puncture Site ABG pH (7.35-7.45) ABG pCO2 (35.0-45.0) mmHg ABG pO2 (80.0-100.0) mmHg ABG HCO3 (22.0-26.0) meq/L ABG O2 Saturation (96.0-97.0) % ABG Base Excess (-2-2.0) Nicholas Test A-a Gradient mmHg O2 Delivery Device Oxygen Flow Rate FiO2 (21.00-100.00) % Sodium (136-145) mEq/L Potassium (3.5-5.1) mEq/L Chloride (98-107) mEq/L Carbon Dioxide (21-32) mEq/L Anion Gap (5-15) BUN (7-18) mg/dL Creatinine (0.7-1.3) mg/dL Est Cr Clr Drug Dosing Estimated GFR (MDRD) (>60) mL/min BUN/Creatinine Ratio (14-18) Glucose (80-115) mg/dL Lactic Acid (0.4-2.0) mmol/L Calcium (8.5-10.1) mg/dL Magnesium (1.8-2.4) mg/dl Total Bilirubin (0.2-1.0) mg/dL AST (15-37) U/L ALT (16-63) U/L Alkaline Phosphatase (46-116) U/L Troponin I (0.00-0.056) ng/mL C-Reactive Protein (<1.0) mg/dL NT-Pro-B Natriuret Pep (0-125) pg/mL Total Protein (6.4-8.2) g/dl Albumin (3.4-5.0) g/dl Globulin gm/dL Albumin/Globulin Ratio (1-2) Urine Color Dark yellow (Yellow) Urine Appearance Clear (Clear) Urine pH 6.0 (5.0-8.0) Ur Specific [place]rose > or = 1.030 (1.005-1.030) Urine Protein Trace H (Negative) Urine Glucose (UA) Negative (Negative) Urine Ketones Negative (Negative) Urine Occult Blood Negative (Negative) Urine Nitrite Negative (Negative) Urine Bilirubin Negative (Negative) Urine Urobilinogen 0.2 (0.2-1.0) Ur Leukocyte Esterase Negative (Negative) Urine RBC 0-5 (0-5) /hpf Urine WBC 0-5 (0-5) /hpf Ur Squamous Epith Cells 0-5 (0-5) /hpf Urine Bacteria Few (FEW) /hpf Urine Mucus Not seen (FEW) /hpf Influenza Type A RNA Negative (NEGATIVE) Influenza Type B RNA Negative (NEGATIVE) SARS-CoV-2 RNA ([facility]) Negative (NEGATIVE) Meds: Medications Generic Name Dose Route Start Last Admin Trade Name Freq PRN Reason Stop Dose Admin Acetaminophen 650 mg 02/25/20 20:17 Tylenol PO Q6H PRN Pain Baclofen 10 mg 02/25/20 21:00 02/26/20 16:17 Lioresal PO 10 mg QID JASPER Administration Benzonatate 100 mg 02/25/20 20:17 Tessalon Perles PO TID PRN Cough Buspirone HCl 15 mg 02/25/20 21:00 02/26/20 08:52 Buspar PO 15 mg BID JASPER Administration Carbidopa/Levodopa 1 tab 02/25/20 21:00 02/26/20 16:17 Sinemet 25-100 Mg PO 1 tab QID JASPER Administration Celecoxib 200 mg 02/26/20 09:00 02/26/20 08:51 Celebrex PO 200 mg DAILY JASPER Administration Cyclobenzaprine HCl 5 mg 02/25/20 21:00 02/26/20 14:16 Flexeril PO 5 mg TID JASPER Administration Enoxaparin Sodium 40 mg 02/26/20 09:00 02/26/20 08:53 Lovenox SUBCUT 40 mg DAILY JASPER Administration Fentanyl 100 mcg 02/26/20 17:00 02/26/20 17:34 Duragesic TRDERM 100 mcg Q72H JASPER Administration Gabapentin 200 mg 02/25/20 21:00 02/26/20 14:17 Neurontin PO 200 mg TID JASPER Administration Guaifenesin 400 mg 02/25/20 20:17 Robitussin PO Q4H PRN Cough Guaifenesin 600 mg 02/25/20 21:00 02/26/20 08:52 Mucinex PO 600 mg BID JASPER Administration Hydrochlorothiazide 12.5 mg 02/26/20 09:00 02/26/20 08:49 Hydrochlorothiazide PO 12.5 mg DAILY JASPER Administration Hydromorphone HCl 2 mg 02/26/20 11:55 02/26/20 17:38 Dilaudid PO 2 mg Q6H PRN Administration Pain Sodium Chloride 1,000 mls @ 100 mls/hr 02/25/20 19:15 02/26/20 10:51 Normal Saline IV 100 mls/hr ASDIRECTED JASPER Administration Cefepime HCl 2 gm/ Premix 50 mls @ 100 mls/hr 02/25/20 22:30 02/26/20 14:17 IV 100 mls/hr Q8H JASPER Administration Vancomycin HCl 1 gm/ Sodium 250 mls @ 250 mls/hr 02/25/20 23:00 02/26/20 11:24 Chloride IV 250 mls/hr Q12H JASPER Administration Lactulose 20 gm 02/25/20 20:17 Cephulac PO DAILY PRN Constipation Lorazepam 1 mg 02/26/20 12:00 02/26/20 16:17 Ativan PO 1 mg BID@1200,1600 JASPER Administration Lorazepam 1 mg 02/26/20 07:00 02/26/20 06:25 Ativan PO 1 mg BID@0700,1900 JASPER Administration Losartan Potassium 50 mg 02/26/20 09:00 02/26/20 08:49 Cozaar PO 50 mg DAILY JASPER Administration Magnesium Oxide 400 mg 02/25/20 21:00 02/26/20 08:51 Magnesium Oxide PO 400 mg BID JASPER Administration Miscellaneous Information 1 ea 02/26/20 17:00 02/26/20 17:39 Remove Patch TRDERM Not Given Q72H JASPER Vanco Trough 0 each 02/27/20 10:00 .XX 02/27/20 10:01 ONETIME ONE Ondansetron HCl 4 mg 02/25/20 20:17 Zofran Odt PO Q6H PRN nausea, able to take PO Oxycodone HCl 5 mg 02/25/20 22:35 02/26/20 11:23 Oxycodone PO 5 mg Q4H PRN Administration Pain (moderate 4-6) Polyethylene Glycol 17 gm 02/26/20 09:00 02/26/20 08:49 Miralax PO 17 gm DAILY JASPER Administration Saccharomyces Boulardii 500 mg 02/26/20 09:00 02/26/20 08:56 Florastor PO 500 mg BID JASPER Administration Senna/Docusate Sodium 1 tab 02/26/20 09:00 02/26/20 08:51 Senna Plus PO 1 tab DAILY JASPER Administration Senna/Docusate Sodium 1 tab 02/25/20 20:17 Senna Plus PO TID PRN Constipation Sertraline HCl 50 mg 02/25/20 21:00 02/25/20 21:47 Zoloft PO 50 mg BEDTIME JASPER Administration Simvastatin 20 mg 02/25/20 21:00 02/25/20 21:47 Zocor PO 20 mg BEDTIME JASPER Administration Sodium Chloride 10 ml 02/25/20 13:06 02/25/20 14:17 Saline Flush FLUSH 10 ml ASDIRECTED PRN Administration Keep Vein Open Terazosin HCl 5 mg 02/25/20 21:00 02/26/20 08:51 Hytrin PO 5 mg BID JASPER Administration Trazodone HCl 150 mg 02/25/20 21:00 02/25/20 21:47 Trazodone PO 150 mg BEDTIME JASPER Administration Trolamine Salicylate 0 gm 02/25/20 20:17 Aspercreme 10% TOP Q4H PRN Pain (mild 1-3) Vancomycin HCl 1 dose 02/25/20 22:45 Pharmacy To Dose - Vancomycin .XX ASDIRECTED JASPER Discontinued Medications Generic Name Dose Route Start Last Admin Trade Name Freq PRN Reason Stop Dose Admin Fentanyl 100 mcg 02/26/20 20:00 Duragesic TRDERM Q72H JASPER Hydromorphone HCl 2 mg 02/25/20 20:00 02/26/20 08:52 Dilaudid PO 2 mg Q6H JASPER Administration Sodium Chloride 1,000 mls @ 100 mls/hr 02/25/20 13:06 02/25/20 21:13 Normal Saline IV 02/25/20 23:05 Not Given BOLUS ONE Sodium Chloride 1,000 mls @ 150 mls/hr 02/25/20 14:40 02/25/20 16:16 Normal Saline IV 02/25/20 21:19 150 mls/hr NOW STA Administration Sodium Chloride 100 mls @ 75 mls/hr 02/25/20 14:45 02/25/20 15:22 Normal Saline IV 75 mls/hr ASDIRECTED JASPER Administration Ceftriaxone Sodium 1 gm/ 100 mls @ 200 mls/hr 02/25/20 15:48 02/25/20 21:13 Sodium Chloride IV 02/25/20 16:17 Not Given ONETIME ONE Levofloxacin/Dextrose 750 mg/ 150 mls @ 100 mls/hr 02/25/20 15:53 02/25/20 16:18 Premix IV 02/25/20 17:22 100 mls/hr ONETIME ONE Administration Iopamidol 100 ml 02/25/20 14:43 02/25/20 15:22 Isovue-[id number] (76%) IVPUSH 02/25/20 14:44 100 ml ONETIME ONE Administration Miscellaneous Information 1 ea 02/26/20 20:00 Remove Patch TRDERM Q72H JASPER Sodium Chloride 10 ml 02/25/20 14:43 02/25/20 15:22 Saline Flush FLUSH 10 ml ONETIME PRN Administration IV FLUSH - Re-Assessments/Exams Free Text/Narrative Re-Assessment/Exam: Patient is a 64-year-old male returning to the emergency department from [facility] with recurrence of hypoxia. He was discharged from this facility 4 days ago after treatment for urinary tract infection and left lower lobe pneumonia. He was discharged on room air and doing well until today. Patient states that he has a mild cough but does state that he coughs when he drinks water. He is currently on nectar thick liquids. At this point, he does not meet SIRS criteria for sepsis as he is not febrile, is not tachypneic, and he is not tachycardic. I have ordered a septic work-up nonetheless. Patient is currently on room air satting 84 to 85%. Have ordered an ABG. Once this is completed, we will place him on supplemental O2. 02/25/20 13:30 ABGs revealed a normal pH of 7.36, PCO2 high at 50.1, PO2 low at 51, bicarb high at 27.9, O2 saturation low at 85.9, base excess 2.3 indicating that he is hypoxic and in fully compensated respiratory acidosis. He has been put on 2 L of oxygen by nasal cannula is currently saturating in the low 90s. 02/25/20 14:47 Hematology was significant for WBC elevated at 12.17, hemoglobin slightly low at 12.3, D-dimer elevated at 1.22, CRP elevated at 9.1. Troponin is negative. Lactic acid is normal. Chest x-ray is difficult to determine if there could be a left lower lobe infiltrate as he is quite rotated. Given the elevated D-dimer and hypoxia, I ordered a CT angiogram of the chest to look for PE and better visualize the lungs for infiltrates. We will start NS at 150 mils per hour. U rinalysis results are pending. 02/25/20 15:56 Urinalysis was negative for infection. CT angiogram shows no evidence of pulmonary embolism, however he does have bilateral patent patchy airspace opac ities within both lung bases, right greater than the left as well as a left- sided pleural effusion. Case discussed with Dr. Ulrich, hospitalist. He has accepted the patient for admission. Requested that we start Levaquin at this time for treatment of pneumonia. I have ordered Levaquin 750 mg IV. Departure - Departure Time of Disposition: 15:56 Disposition: Admitted As Inpatient 68 Condition: Good Clinical Impression: Hypoxemia, Healthcare-associated pneumonia Leukocytosis Qualifiers: Leukocytosis type: unspecified Qualified Code(s): D72.829 - Elevated white blood cell count, unspecified - Discharge Information Sepsis Event Note (ED) - Evaluation Sepsis Screening Result: No Definite Risk
[2020-02-25] MEDS ORDERED: Sodium Chloride 0.9% 1,000 ML IV STA (14:40)
[2020-02-25] MEDS ORDERED: Iopamidol 755 Mg/ML 100 ML Bottle IVPUSH ONE (14:43)
[2020-02-25] MEDS ORDERED: Sodium Chloride 0.9% 100 ML IV SCH (14:45)
[2020-02-25 15:41] LABS: CORONAVIRUS COVID-19 NAA NEGATIVE (NEGATIVE)
[2020-02-25] MEDS ORDERED: cefTRIAXone 1 GM in Sodium Chloride 0.9% 100 ML IV ONE (15:48)
[2020-02-25] MEDS ORDERED: Levofloxacin/Dextrose 5%-Water 750 MG in Premix Bag 1 BAG IV ONE (15:53)
[2020-02-25] MEDS: HYDROmorphone 2 MG Tab PO SCH (19:33)
[2020-02-25] MEDS ORDERED: Ondansetron 4 MG Tab.DIS PO PRN (20:17)
[2020-02-25] MEDS ORDERED: Trolamine Salicylate/Aloe Vera 10% Crm 85 GM Tube TOP PRN (20:17)
[2020-02-25] MEDS ORDERED: guaiFENesin 100 MG/5 ML Soln 10 ML UD Cup PO PRN (20:17)
[2020-02-25] MEDS ORDERED: Benzonatate 100 MG Cap PO PRN (20:17)
[2020-02-25] MEDS ORDERED: Lactulose Soln 10 GM/15 ML 30 ML UD Cup PO PRN (20:17)
[2020-02-25] MEDS: Magnesium Oxide 400 MG Tab PO SCH (21:45)
[2020-02-25] MEDS: Gabapentin 100 MG Cap PO SCH (21:45)
[2020-02-25] MEDS: Terazosin 5 MG Cap PO SCH (21:45)
[2020-02-25] MEDS: guaiFENesin 600 MG Tab.ER PO SCH (21:46)
[2020-02-25] MEDS: Cyclobenzaprine 10 MG Tab PO SCH (21:46)
[2020-02-25] MEDS: Baclofen 10 MG Tab PO SCH (21:46)
[2020-02-25] MEDS: traZODone 50 MG Tab PO SCH (21:47)
[2020-02-25] MEDS: Simvastatin 20 MG Tab PO SCH (21:47)
[2020-02-25] MEDS: Sertraline 50 MG Tab PO SCH (21:47)
[2020-02-25] MEDS: Carbidopa/Levodopa 25-100 MG Tab PO SCH (21:47)
[2020-02-25] MEDS: busPIRone 15 MG Tab PO SCH (21:48)
--- NOTE | 2020-02-25 22:28 | PCM.HP.2 ---
H&P History of Present Illness - General Date of Service: 02/25/20 Admit Problem/Dx: Admission Diagnosis/Problem Admission Diagnosis/Problem Pneumonia - History of Present Illness Initial Comments - Free Text/Narative: 64-year-old male that was recently discharged from the hospital on 02/21/2020 after having been treated for pneumonia and Pseudomonas UTI. Patient has been hospitalized 3 times over the last 2 months. Patient was hospitalized from 02/11/2020 through 02/21/2020. Received antibiotics for the entire time. Patient apparently was brought back in just 4 days after discharge when nursing staff reports the patient's oxygen saturation was found to be 85% on room air. When patient was here previously he did have his fentanyl increased to 100 mcg. Currently patient does have a slight cough which is chronic otherwise he states he is feeling well. On arrival patient did have oxygen saturation of 84% on room air and he was placed on 2 L nasal cannula. CTA of the chest was performed which showed no pulmonary embolism, small left-sided pleural effusion which is stable. Mild increased density within the left lung base some of which appears chronic but other increased density is seen either due to atelectasis or small area of pneumonia. No clear area of pneumonia. White count was elevated at 12.17 and C-reactive protein of 9.1. 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 Left Shoulder Pain Score (Numeric/FACES): 9 - Related Data Allergies/Adverse Reactions: Allergies Allergy/AdvReac Type Severity Reaction Status Date / Time No Known Allergies Allergy Verified 02/25/20 16:33 Home Medications: Home Meds Acetaminophen [Tylenol Arthritis Pain] 650 mg PO Q6H PRN #120 dose 10/22/19 [Rx] Benzonatate [Tessalon Perle] 100 mg PO TID PRN #30 capsule 10/22/19 [Rx] Carbidopa/Levodopa [Carbidopa-Levodopa 25-100] 1 tab PO QID #120 tablet 10/22/19 [Rx] Gabapentin [Neurontin] 200 mg PO TID #120 dose 10/22/19 [Rx] Lactulose [Kristalose] 20 gm PO DAILY PRN #120 packet 10/22/19 [Rx] Losartan [Cozaar] 50 mg PO DAILY #30 dose 10/22/19 [Rx] Magnesium Oxide [Magnesium] 400 mg PO BID #60 dose 10/22/19 [Rx] Ondansetron [Zofran ODT] 4 mg PO Q6H PRN #20 tab.dis 10/22/19 [Rx] Simvastatin 20 mg PO BEDTIME #30 dose 10/22/19 [Rx] Terazosin [Hytrin] 5 mg PO BID #60 cap 10/22/19 [Rx] busPIRone [Buspar] 15 mg PO BID #60 tablet 10/22/19 [Rx] guaiFENesin [Fenesin IR] 400 mg PO Q4H PRN #60 tablet 10/22/19 [Rx] Baclofen 10 mg PO QID 12/14/19 [History] LORazepam [Ativan] 1 mg PO 12/14/19 [History] Sennosides/Docusate Sodium [Senna Plus 8.6-50 mg Tablet] 1 tab PO DAILY 12/14/19 [History] Sennosides/Docusate Sodium [Senna Plus Tablet] 1 each PO TID PRN 12/14/19 [History] Trolamine Salicylate/Aloe Vera [Aspercreme 10% Cream] 2 gm TP Q4H PRN 12/14/19 [History] hydroCHLOROthiazide [Hydrochlorothiazide] 12.5 mg PO DAILY 12/14/19 [History] polyethylene glycoL 3350 [MiraLAX] 17 gram PO DAILY 12/14/19 [History] Remove Patch 1 ea TRDERM Q72H each 12/20/19 [Rx] Celecoxib 200 mg PO DAILY 02/11/20 [History] Cyclobenzaprine [Flexeril] 5 mg PO TID 02/11/20 [History] LORazepam [Ativan] 1 mg PO 02/11/20 [History] Lactobacillus Acidophilus [Acidophilus Lactobacilli] 1 tab PO DAILY 02/11/20 [History] Sertraline [Zoloft] 50 mg PO BEDTIME 02/11/20 [History] guaiFENesin [Mucinex] 600 mg PO BID 02/11/20 [History] traZODone HCl [Trazodone HCl] 150 mg PO BEDTIME 02/11/20 [History] fentaNYL [Duragesic] 100 mcg TRDERM Q72H 30 Days #10 patch 02/17/20 [Rx] HYDROmorphone [Dilaudid] 2 mg PO Q6H PRN 02/26/20 [History] Past Medical History HEENT History: Reports: Impaired Vision Other HEENT History: Wears glasses Cardiovascular History: Reports: High Cholesterol, Hypertension Respiratory History: Reports: Intubation, Previous, Pneumonia, Recurrent Gastrointestinal History: Reports: Chronic Constipation, GERD, Hiatal Hernia Genitourinary History: Reports: BPH, Retention, Urinary, UTI, Recurrent Musculoskeletal History: Reports: Arthritis, Back Pain, Chronic, Osteoarthritis Other Musculoskeletal History: fall; fractured ribs; muscle spasms; polyarthritis; progressive supranuclear opthalmoplegia; cervical disc Neurological History: Reports: Parkinson's, Speech Problems, Vertigo Other Neuro History: 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 Psychiatric History: Reports: Anxiety, Depression Other Psychiatric History: insomnia - Infectious Disease History Infectious Disease History: Reports: MRSA - Past Surgical History HEENT Surgical History: Reports: None Cardiovascular Surgical History: Reports: None Respiratory Surgical History: Reports: None GI Surgical History: Reports: None Neurological Surgical History: Reports: None Musculoskeletal Surgical History: Reports: None - History Comment History Comment: Patient has chronic severe generalized pain. He is currently on Dilaudid 2 mg 3 times daily and fentanyl patch. 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 Social & Family History - Family History Family Medical History: No Pertinent Family History - Tobacco Use Tobacco Use Status *Q: Never Tobacco User - Caffeine Use Caffeine Use: Reports: None - Living Situation & Occupation Living situation: Reports: Single, Alone, Extended Care Facility ([facility] Occupation: Disabled H&P Review of Systems - Review of Systems: Review Of Systems: Comprehensive ROS is negative, except as noted in HPI. Exam - Exam Exam: See Below - Vital Signs Vital Signs: Last Vital Signs Temp 98.8 F 02/25/20 19:00 Pulse 98 02/25/20 19:00 Resp 16 02/25/20 19:00 BP 116/54 L 02/25/20 21:45 Pulse Ox 92 L 02/25/20 19:00 Weight: 155 lb 3.2 oz - Exam Quality Assessment: Supplemental Oxygen General: Alert, Oriented, 4 HEENT: Conjunctiva Clear, EACs Clear, Mucosa Moist & [place], Normal Nasal Septum Neck: Supple, Trachea Midline, 2 Lungs: Normal Respiratory Effort, Crackles (Sporadic) Cardiovascular: Regular Rate, Regular Rhythm GI/Abdominal Exam: Normal Bowel Sounds, Soft, Non-Tender, No Distention, No Abnormal Bruit Extremities: Normal Inspection, Normal Range of Motion, Normal Capillary Refill, Other (Multiple contractures) Skin: Warm, Dry, Intact Psychiatric: Alert, Normal Affect, Normal Mood - Patient Data Lab Results Last 24 hrs: Laboratory Results - last 24 hr 02/25/20 02/25/20 02/25/20 Range/Units 13:20 13:35 13:35 WBC 12.17 H (4.23-9.07) K/mm3 RBC 4.53 L (4.63-6.08) M/mm3 Hgb 12.3 L (13.7-17.5) gm/dl Hct 40.3 (40.1-51.0) % MCV 89.0 (79.0-92.2) fl MCH 27.2 (25.7-32.2) pg MCHC 30.5 L (32.2-35.5) g/dl RDW Std Deviation 45.2 H (35.1-43.9) fL Plt Count 217 (163-337) K/mm3 MPV 11.2 (9.4-12.3) fl Neutrophils % (Manual) 87 H (40-60) % Band Neutrophils % 0 (0-10) % Lymphocytes % (Manual) 9 L (20-40) % Atypical Lymphs % 0 % Monocytes % (Manual) 2 (2-10) % Eosinophils % (Manual) 2 (0.8-7.0) % Basophils % (Manual) 0 L (0.2-1.2) Platelet Estimate Adequate Plt Morphology Comment Normal RBC Morph Comment Normal PT 12.4 H (9.7-12.0) SECONDS INR 1.16 D-Dimer, Quantitative 1.22 H (0.19-0.50) mg/L Puncture Site Rt radial ABG pH 7.36 (7.35-7.45) ABG pCO2 50.1 H (35.0-45.0) mmHg ABG pO2 51.0 L (80.0-100.0) mmHg ABG HCO3 27.9 H (22.0-26.0) meq/L ABG O2 Saturation 85.9 L (96.0-97.0) % ABG Base Excess 2.3 H (-2-2.0) Nicholas Test Positive A-a Gradient 36 mmHg O2 Delivery Device Room air Oxygen Flow Rate 0.0 FiO2 21.00 (21.00-100.00) % Sodium (136-145) mEq/L Potassium (3.5-5.1) mEq/L Chloride (98-107) mEq/L Carbon Dioxide (21-32) mEq/L Anion Gap (5-15) BUN (7-18) mg/dL Creatinine (0.7-1.3) mg/dL Est Cr Clr Drug Dosing Estimated GFR (MDRD) (>60) mL/min BUN/Creatinine Ratio (14-18) Glucose (80-115) mg/dL Lactic Acid (0.4-2.0) mmol/L Calcium (8.5-10.1) mg/dL Magnesium (1.8-2.4) mg/dl Total Bilirubin (0.2-1.0) mg/dL AST (15-37) U/L ALT (16-63) U/L Alkaline Phosphatase (46-116) U/L Troponin I (0.00-0.056) ng/mL C-Reactive Protein (<1.0) mg/dL NT-Pro-B Natriuret Pep (0-125) pg/mL Total Protein (6.4-8.2) g/dl Albumin (3.4-5.0) g/dl Globulin gm/dL Albumin/Globulin Ratio (1-2) Urine Color (Yellow) Urine Appearance (Clear) Urine pH (5.0-8.0) Ur Specific Enochs (1.005-1.030) Urine Protein (Negative) Urine Glucose (UA) (Negative) Urine Ketones (Negative) Urine Occult Blood (Negative) Urine Nitrite (Negative) Urine Bilirubin (Negative) Urine Urobilinogen (0.2-1.0) Ur Leukocyte Esterase (Negative) Urine RBC (0-5) /hpf Urine WBC (0-5) /hpf Ur Squamous Epith Cells (0-5) /hpf Urine Bacteria (FEW) /hpf Urine Mucus (FEW) /hpf Influenza Type A RNA (NEGATIVE) Influenza Type B RNA (NEGATIVE) SARS-CoV-2 RNA (CAMILLA) (NEGATIVE) 02/25/20 02/25/20 02/25/20 Range/Units 13:35 13:35 13:35 WBC (4.23-9.07) K/mm3 RBC (4.63-6.08) M/mm3 Hgb (13.7-17.5) gm/dl Hct (40.1-51.0) % MCV (79.0-92.2) fl MCH (25.7-32.2) pg MCHC (32.2-35.5) g/dl RDW Std Deviation (35.1-43.9) fL Plt Count (163-337) K/mm3 MPV (9.4-12.3) fl Neutrophils % (Manual) (40-60) % Band Neutrophils % (0-10) % Lymphocytes % (Manual) (20-40) % Atypical Lymphs % % Monocytes % (Manual) (2-10) % Eosinophils % (Manual) (0.8-7.0) % Basophils % (Manual) (0.2-1.2) Platelet Estimate Plt Morphology Comment RBC Morph Comment PT (9.7-12.0) SECONDS INR D-Dimer, Quantitative (0.19-0.50) mg/L Puncture Site ABG pH (7.35-7.45) ABG pCO2 (35.0-45.0) mmHg ABG pO2 (80.0-100.0) mmHg ABG HCO3 (22.0-26.0) meq/L ABG O2 Saturation (96.0-97.0) % ABG Base Excess (-2-2.0) Nicholas Test A-a Gradient mmHg O2 Delivery Device Oxygen Flow Rate FiO2 (21.00-100.00) % Sodium 140 (136-145) mEq/L Potassium 3.9 (3.5-5.1) mEq/L Chloride 102 (98-107) mEq/L Carbon Dioxide 30 (21-32) mEq/L Anion Gap 11.9 (5-15) BUN 20 H (7-18) mg/dL Creatinine 1.1 (0.7-1.3) mg/dL Est Cr Clr Drug Dosing TNP Estimated GFR (MDRD) > 60 (>60) mL/min BUN/Creatinine Ratio 18.2 H (14-18) Glucose 154 H (80-115) mg/dL Lactic Acid 1.3 (0.4-2.0) mmol/L Calcium 9.0 (8.5-10.1) mg/dL Magnesium 2.1 (1.8-2.4) mg/dl Total Bilirubin 0.7 (0.2-1.0) mg/dL AST 9 L (15-37) U/L ALT 8 L (16-63) U/L Alkaline Phosphatase 67 (46-116) U/L Troponin I < 0.017 (0.00-0.056) ng/mL C-Reactive Protein 9.1 H* (<1.0) mg/dL NT-Pro-B Natriuret Pep 38 (0-125) pg/mL Total Protein 7.0 (6.4-8.2) g/dl Albumin 3.0 L (3.4-5.0) g/dl Globulin 4.0 gm/dL Albumin/Globulin Ratio 0.8 L (1-2) Urine Color (Yellow) Urine Appearance (Clear) Urine pH (5.0-8.0) Ur Specific Enochs (1.005-1.030) Urine Protein (Negative) Urine Glucose (UA) (Negative) Urine Ketones (Negative) Urine Occult Blood (Negative) Urine Nitrite (Negative) Urine Bilirubin (Negative) Urine Urobilinogen (0.2-1.0) Ur Leukocyte Esterase (Negative) Urine RBC (0-5) /hpf Urine WBC (0-5) /hpf Ur Squamous Epith Cells (0-5) /hpf Urine Bacteria (FEW) /hpf Urine Mucus (FEW) /hpf Influenza Type A RNA (NEGATIVE) Influenza Type B RNA (NEGATIVE) SARS-CoV-2 RNA ([place]) (NEGATIVE) 02/25/20 02/25/20 Range/Units 14:45 14:50 WBC (4.23-9.07) K/mm3 RBC (4.63-6.08) M/mm3 Hgb (13.7-17.5) gm/dl Hct (40.1-51.0) % MCV (79.0-92.2) fl MCH (25.7-32.2) pg MCHC (32.2-35.5) g/dl RDW Std Deviation (35.1-43.9) fL Plt Count (163-337) K/mm3 MPV (9.4-12.3) fl Neutrophils % (Manual) (40-60) % Band Neutrophils % (0-10) % Lymphocytes % (Manual) (20-40) % Atypical Lymphs % % Monocytes % (Manual) (2-10) % Eosinophils % (Manual) (0.8-7.0) % Basophils % (Manual) (0.2-1.2) Platelet Estimate Plt Morphology Comment RBC Morph Comment PT (9.7-12.0) SECONDS INR D-Dimer, Quantitative (0.19-0.50) mg/L Puncture Site ABG pH (7.35-7.45) ABG pCO2 (35.0-45.0) mmHg ABG pO2 (80.0-100.0) mmHg ABG HCO3 (22.0-26.0) meq/L ABG O2 Saturation (96.0-97.0) % ABG Base Excess (-2-2.0) Nicholas Test A-a Gradient mmHg O2 Delivery Device Oxygen Flow Rate FiO2 (21.00-100.00) % Sodium (136-145) mEq/L Potassium (3.5-5.1) mEq/L Chloride (98-107) mEq/L Carbon Dioxide (21-32) mEq/L Anion Gap (5-15) BUN (7-18) mg/dL Creatinine (0.7-1.3) mg/dL Est Cr Clr Drug Dosing Estimated GFR (MDRD) (>60) mL/min BUN/Creatinine Ratio (14-18) Glucose (80-115) mg/dL Lactic Acid (0.4-2.0) mmol/L Calcium (8.5-10.1) mg/dL Magnesium (1.8-2.4) mg/dl Total Bilirubin (0.2-1.0) mg/dL AST (15-37) U/L ALT (16-63) U/L Alkaline Phosphatase (46-116) U/L Troponin I (0.00-0.056) ng/mL C-Reactive Protein (<1.0) mg/dL NT-Pro-B Natriuret Pep (0-125) pg/mL Total Protein (6.4-8.2) g/dl Albumin (3.4-5.0) g/dl Globulin gm/dL Albumin/Globulin Ratio (1-2) Urine Color Dark yellow (Yellow) Urine Appearance Clear (Clear) Urine pH 6.0 (5.0-8.0) Ur Specific E[place]chs > or = 1.030 (1.005-1.030) Urine Protein Trace H (Negative) Urine Glucose (UA) Negative (Negative) Urine Ketones Negative (Negative) Urine Occult Blood Negative (Negative) Urine Nitrite Negative (Negative) Urine Bilirubin Negative (Negative) Urine Urobilinogen 0.2 (0.2-1.0) Ur Leukocyte Esterase Negative (Negative) Urine RBC 0-5 (0-5) /hpf Urine WBC 0-5 (0-5) /hpf Ur Squamous Epith Cells 0-5 (0-5) /hpf Urine Bacteria Few (FEW) /hpf Urine Mucus Not seen (FEW) /hpf Influenza Type A RNA Negative (NEGATIVE) Influenza Type B RNA Negative (NEGATIVE) SARS-CoV-2 RNA (CAMILLA) Negative (NEGATIVE) Result Diagrams: 02/26/20 04:59 02/26/20 04:59 Sepsis Event Note - Evaluation Sepsis Screening Result: No Definite Risk - Focused Exam Vital Signs: Vital Signs Temp Temp Pulse Pulse Resp BP BP 02/25/20 21:45 116/54 L 02/25/20 19:00 98.8 F 98 16 116/54 L 02/25/20 17:06 16 02/25/20 17:05 99.1 F 82 108/62 02/25/20 12:58 97.0 F 88 11 L 95/59 L Pulse Ox 02/25/20 21:45 02/25/20 19:00 92 L 02/25/20 17:06 02/25/20 17:05 94 L 02/25/20 12:58 84 L - Problem List (1) Healthcare-associated pneumonia SNOMED Code(s): 536570487, 695299539 ICD Code: J18.9 - PNEUMONIA, UNSPECIFIED ORGANISM Status: Acute Current Visit: Yes (2) Hypoxemia SNOMED Code(s): 197671626 ICD Code: R09.02 - HYPOXEMIA Status: Acute Current Visit: Yes Problem List Initiated/Reviewed/Updated: Yes Orders Last 24hrs: Active Orders 24 hr Category Date Time Status Admission Status [Patient Status] [ADT] Routine ADT 02/25/20 16:37 Active Cardiac Monitoring [RC] CONTINUOUS Care 02/25/20 13:07 Active Oxygen Therapy [RC] PRN Care 02/25/20 20:29 Active VTE/DVT Education [RC] PER UNIT ROUTINE Care 02/25/20 20:29 Active Vital Signs [RC] Q4H Care 02/25/20 20:29 Active Pureed Diet [DIET] Diet 02/26/20 Breakfast Active Thickened Liquids [DIET] Diet 02/26/20 Breakfast Active Chest 1V Frontal [CR] Stat Exams 02/25/20 13:55 Taken Chest PE [Ang Chest] [CT] Stat Exams 02/25/20 14:40 Taken CULTURE BLOOD [BC] Stat Lab 02/25/20 13:35 Received CULTURE BLOOD [BC] Stat Lab 02/25/20 13:45 Received Acetaminophen [TylenoL] Med 02/25/20 20:17 Active 650 mg PO Q6H PRN Baclofen [Lioresal] Med 02/25/20 21:00 Active 10 mg PO QID Benzonatate [Tessalon Perles] Med 02/25/20 20:17 Active 100 mg PO TID PRN Carbidopa/Levodopa [Sinemet 25-100 mg] Med 02/25/20 21:00 Active 1 tab PO QID Celecoxib [CeleBREX] Med 02/26/20 09:00 Active 200 mg PO DAILY Cyclobenzaprine [Flexeril] Med 02/25/20 21:00 Active 5 mg PO TID Docusate Sodium/Sennosides [Senna Plus] Med 02/26/20 09:00 Active 1 tab PO DAILY Docusate Sodium/Sennosides [Senna Plus] Med 02/25/20 20:17 Active 1 tab PO TID PRN Enoxaparin [Lovenox] Med 02/26/20 09:00 Active 40 mg SUBCUT DAILY Gabapentin [Neurontin] Med 02/25/20 21:00 Active 200 mg PO TID HYDROmorphone [Dilaudid] Med 02/25/20 20:00 Active 2 mg PO Q6H LORazepam [Ativan] Med 02/26/20 07:00 Active 1 mg PO BID@0700,1900 LORazepam [Ativan] Med 02/26/20 12:00 Active 1 mg PO BID@1200,1600 Lactulose [Cephulac] Med 02/25/20 20:17 Active 20 gm PO DAILY PRN Losartan [Cozaar] Med 02/26/20 09:00 Active 50 mg PO DAILY Magnesium Oxide Med 02/25/20 21:00 Active 400 mg PO BID Ondansetron [Zofran ODT] Med 02/25/20 20:17 Active 4 mg PO Q6H PRN Remove Patch Med 02/26/20 20:00 Active 1 ea TRDERM Q72H Sertraline [Zoloft] Med 02/25/20 21:00 Active 50 mg PO BEDTIME Simvastatin [Zocor] Med 02/25/20 21:00 Active 20 mg PO BEDTIME Sodium Chloride 0.9% [Normal Saline] 1,000 ml Med 02/25/20 19:15 Active IV ASDIRECTED Sodium Chloride 0.9% [Saline Flush] Med 02/25/20 13:06 Active 10 ml FLUSH ASDIRECTED PRN Terazosin [Hytrin] Med 02/25/20 21:00 Active 5 mg PO BID Trolamine Salicylate/Aloe Vera [Aspercreme 10%] Med 02/25/20 20:17 Active 0 gm TOP Q4H PRN busPIRone [Buspar] Med 02/25/20 21:00 Active 15 mg PO BID fentaNYL [Duragesic] Med 02/26/20 20:00 Active 100 mcg TRDERM Q72H guaiFENesin [Mucinex] Med 02/25/20 21:00 Active 600 mg PO BID guaiFENesin [Robitussin] Med 02/25/20 20:17 Active 400 mg PO Q4H PRN hydroCHLOROthiazide Med 02/26/20 09:00 Active 12.5 mg PO DAILY polyethylene glycoL 3350 [MiraLAX] Med 02/26/20 09:00 Active 17 gm PO DAILY traZODone Med 02/25/20 21:00 Active 150 mg PO BEDTIME Blood Culture x2 Reflex Set [OM.PC] Stat Oth 02/25/20 13:06 Ordered Saline Lock Insert [OM.PC] Stat Oth 02/25/20 13:06 Ordered Resuscitation Status Routine Resus Stat 02/25/20 17:48 Ordered EKG 12 Lead [EK] Stat Ther 02/25/20 13:06 Ordered Medication Orders Acetaminophen (Tylenol) 650 mg PO Q6H PRN PRN Reason: Pain Baclofen (Lioresal) 10 mg PO QID JASPER Last Admin: 02/25/20 21:46 Dose: 10 mg Documented by: PAYTON Benzonatate (Tessalon Perles) 100 mg PO TID PRN PRN Reason: Cough Buspirone HCl (Buspar) 15 mg PO BID [facility] Last Admin: 02/25/20 21:48 Dose: 15 mg Documented by: PAYTON Carbidopa/Levodopa (Sinemet 25-100 Mg) 1 tab PO QID [facility] Last Admin: 02/25/20 21:47 Dose: 1 tab Documented by: PAYTON Celecoxib (Celebrex) 200 mg PO DAILY [facility] Cyclobenzaprine HCl (Flexeril) 5 mg PO TID [facility] Last Admin: 02/25/20 21:46 Dose: 5 mg Documented by: PAYTON Enoxaparin Sodium (Lovenox) 40 mg SUBCUT DAILY [facility] Fentanyl (Duragesic) 100 mcg TRDERM Q72H [facility] Gabapentin (Neurontin) 200 mg PO TID [facility] Last Admin: 02/25/20 21:45 Dose: 200 mg Documented by: PAYTON Guaifenesin (Robitussin) 400 mg PO Q4H PRN PRN Reason: Cough Guaifenesin (Mucinex) 600 mg PO BID [facility] Last Admin: 02/25/20 21:46 Dose: 600 mg Documented by: PAYTON Hydrochlorothiazide (Hydrochlorothiazide) 12.5 mg PO DAILY [facility] Hydromorphone HCl (Dilaudid) 2 mg PO Q6H [facility] Last Admin: 02/25/20 19:33 Dose: 2 mg Documented by: BRUCE Sodium Chloride (Normal Saline) 1,000 mls @ 100 mls/hr IV ASDIRECTED [facility] Lactulose (Cephulac) 20 gm PO DAILY PRN PRN Reason: Constipation Lorazepam (Ativan) 1 mg PO BID@1200,1600 [facility] Lorazepam (Ativan) 1 mg PO BID@0700,1900 [facility] Losartan Potassium (Cozaar) 50 mg PO DAILY [facility] Magnesium Oxide (Magnesium Oxide) 400 mg PO BID [facility] Last Admin: 02/25/20 21:45 Dose: 400 mg Documented by: PAYTON Miscellaneous Information (Remove Patch) 1 ea TRDERM Q72H [facility] Ondansetron HCl (Zofran Odt) 4 mg PO Q6H PRN PRN Reason: nausea, able to take PO Polyethylene Glycol (Miralax) 17 gm PO DAILY [facility] Senna/Docusate Sodium (Senna Plus) 1 tab PO DAILY [facility] Senna/Docusate Sodium (Senna Plus) 1 tab PO TID PRN PRN Reason: Constipation Sertraline HCl (Zoloft) 50 mg PO BEDTIME [facility] Last Admin: 02/25/20 21:47 Dose: 50 mg Documented by: PAYTON Simvastatin (Zocor) 20 mg PO BEDTIME [facility] Last Admin: 02/25/20 21:47 Dose: 20 mg Documented by: PAYTON Sodium Chloride (Saline Flush) 10 ml FLUSH ASDIRECTED PRN PRN Reason: Keep Vein Open Last Admin: 02/25/20 14:17 Dose: 10 ml Documented by: CHARLIE Terazosin HCl (Hytrin) 5 mg PO BID [facility] Last Admin: 02/25/20 21:45 Dose: 5 mg Documented by: PAYTON Trazodone HCl (Trazodone) 150 mg PO BEDTIME [facility] Last Admin: 02/25/20 21:47 Dose: 150 mg Documented by: PAYTON Trolamine Salicylate (Aspercreme 10%) 0 gm TOP Q4H PRN PRN Reason: Pain (mild 1-3) Assessment/Plan Comment:: Assessment 64-year-old male with history of recurrent pneumonia, UTI, and recent hospitalization returns with hypoxemia and hypercapnia. Healthcare associated pneumonia Small bilateral pleural effusions that appear to be chronic * Although CT scan does not show specific area of pneumonia just possible area of pneumonia he does have multiple criteria for pneumonia. 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 Follow blood cultures. Follow CBC, BMP. Patient may need to have his pain medications simplified if there is some possibility that he is having respiratory depression due to narcotic medication. * VTE prophylaxis with Lovenox * DNR/DNI - Mortality Measure Prognosis:: Poor
[2020-02-25] MEDS: Cefepime 2 GM in Premix Bag 1 BAG IV SCH (23:36)
[2020-02-25] MEDS: Sodium Chloride 0.9% 1,000 ML IV SCH (23:36)
[2020-02-26] MEDS: HYDROmorphone 2 MG Tab PO SCH ×2 (01:12→08:52)
[2020-02-26] MEDS: LORazepam 1 MG Tab PO SCH ×4 (06:25→19:45)
[2020-02-26] MEDS: oxyCODONE 5 MG Tab PO PRN ×2 (06:25→11:23)
[2020-02-26] MEDS: Cefepime 2 GM in Premix Bag 1 BAG IV SCH ×3 (06:25→21:58)
[2020-02-26] MEDS: Hydrochlorothiazide 12.5 MG Cap PO SCH (08:49)
[2020-02-26] MEDS: Gabapentin 100 MG Cap PO SCH ×3 (08:49→20:50)
[2020-02-26] MEDS: Losartan 50 MG Tab PO SCH (08:49)
[2020-02-26] MEDS: Polyethylene Glycol 3350 Powder 17 GM Packet PO SCH (08:49)
[2020-02-26] MEDS: Celecoxib 100 MG Cap PO SCH (08:51)
[2020-02-26] MEDS: Terazosin 5 MG Cap PO SCH ×2 (08:51→20:48)
[2020-02-26] MEDS: Magnesium Oxide 400 MG Tab PO SCH ×2 (08:51→20:49)
[2020-02-26] MEDS: guaiFENesin 600 MG Tab.ER PO SCH ×2 (08:52→20:49)
[2020-02-26] MEDS: Carbidopa/Levodopa 25-100 MG Tab PO SCH ×4 (08:52→20:49)
[2020-02-26] MEDS: busPIRone 15 MG Tab PO SCH ×2 (08:52→20:50)
[2020-02-26] MEDS: Baclofen 10 MG Tab PO SCH ×4 (08:52→20:48)
[2020-02-26] MEDS: Cyclobenzaprine 10 MG Tab PO SCH ×3 (08:52→20:51)
[2020-02-26] MEDS: Enoxaparin 40 MG/0.4 ML Syringe SUBCUT SCH (08:53)
[2020-02-26] MEDS: Saccharomyces Boulardii (Probiotic) 250 MG Cap PO SCH ×2 (08:56→20:53)
[2020-02-26] MEDS: Sodium Chloride 0.9% 1,000 ML IV SCH ×2 (10:51→20:46)
--- NOTE | 2020-02-26 15:03 | CT ---
CT chest Technique: Multiple axial sections through the chest were obtained. Intravenous contrast was utilized as a pulmonary angiogram protocol. Comparison: Prior CT chest study of 09/16/19. Findings: Pulmonary arteries are fairly well opacified. No discrete filling defects are appreciated to indicate definite pulmonary embolism. Thoracic aorta shows no aneurysm. Small mediastinal lymph nodes are seen which are believed to be within normal limits. Minimal pleural effusion is noted within the left base. Slight parenchymal density is seen within the left lung base. Most of this appears to be fairly chronic but difficult to exclude mild increased atelectasis or superimposed mild pneumonia. Very slight change within the right base is seen which is chronic. No other acute abnormality is appreciated. Bone window settings were reviewed. Several left lower rib fractures are seen which were acute on previous exam. One rib fracture shows no definite callus at this time. Impression: 1. No findings of pulmonary embolism. 2. Small left-sided pleural effusion which is stable. Mild increased density within the left lung base some of which appears chronic but other increased density is seen either due to atelectasis or small area of pneumonia. 3. Slight change within the right base which is chronic. 4. Old left-sided rib fractures with one rib fracture showing no definite bridging callus. Diagnostic code #3 I agree with preliminary report from [facility], finalized on 02/25/20, 4:43 PM [employer]
--- NOTE | 2020-02-26 15:09 | CR ---
Chest: Portable view of the chest was obtained. Comparison: Prior chest x-ray of 02/11/20. Increased density within the left base is seen. Right lung is clear. Heart is felt to be minimally enlarged. Right distal clavicle healed fracture is noted. Impression: 1. Increased density within the left base. Findings are fairly stable from prior study. 2. Other findings believed to be incidental as noted above. Diagnostic code #3
[2020-02-26] MEDS: fentaNYL 100 MCG/HR Transdermal Patch TRDERM SCH (17:34)
[2020-02-26] MEDS: HYDROmorphone 2 MG Tab PO PRN (17:38)
[2020-02-26] MEDS: REMOVE FENTANYL TRDERM SCH (17:39)
[2020-02-26] MEDS ORDERED: REMOVE FENTANYL TRDERM SCH (20:00)
[2020-02-26] MEDS ORDERED: fentaNYL 100 MCG/HR Transdermal Patch TRDERM SCH (20:00)
[2020-02-26] MEDS: Sertraline 50 MG Tab PO SCH (20:49)
[2020-02-26] MEDS: Simvastatin 20 MG Tab PO SCH (20:50)
[2020-02-26] MEDS: traZODone 50 MG Tab PO SCH (20:51)
[2020-02-27] MEDS: HYDROmorphone 2 MG Tab PO PRN ×2 (01:57→18:09)
[2020-02-27] MEDS: Cefepime 2 GM in Premix Bag 1 BAG IV SCH ×3 (06:21→21:33)
[2020-02-27] MEDS: LORazepam 1 MG Tab PO SCH ×4 (06:22→18:08)
--- NOTE | 2020-02-27 07:20 | PCM.PN ---
- General Info Date of Service: 02/26/20 Admission Dx/Problem (Free Text): Admission Diagnosis/Problem Admission Diagnosis/Problem Pneumonia Subjective Update: Patient has significant improvement overnight. He still continues to complain of pain, but this is chronic in nature nothing acute. Functional Status: Denies: Pain Controlled - Review of Systems General: Reports: No Symptoms HEENT: Reports: No Symptoms Pulmonary: Reports: No Symptoms Cardiovascular: Reports: No Symptoms Gastrointestinal: Reports: No Symptoms Musculoskeletal: Reports: Shoulder Pain, Arm Pain, Back Pain, Leg Pain, Joint Pain - Patient Data Vitals - Most Recent: Last Vital Signs Temp 97.9 F 02/27/20 00:00 Pulse 68 02/27/20 00:00 Resp 14 02/27/20 00:00 BP 112/60 02/27/20 00:00 Pulse Ox 94 L 02/27/20 00:00 Weight - Most Recent: 157 lb 14.4 oz I&O - Last 24 Hours: Intake & Output 02/26/20 02/27/20 02/27/20 22:59 06:59 14:59 Intake Total 2250 Balance 2250 Lab Results Last 24 Hours: Laboratory Results - last 24 hr 02/27/20 02/27/20 Range/Units 04:26 04:26 WBC 6.20 (4.23-9.07) K/mm3 RBC 3.87 L (4.63-6.08) M/mm3 Hgb 10.6 L D (13.7-17.5) gm/dl Hct 34.6 L (40.1-51.0) % MCV 89.4 (79.0-92.2) fl MCH 27.4 (25.7-32.2) pg MCHC 30.6 L (32.2-35.5) g/dl RDW Std Deviation 44.9 H (35.1-43.9) fL Plt Count 196 (163-337) K/mm3 MPV 11.3 (9.4-12.3) fl Neut % (Auto) 63.2 (34.0-67.9) % Lymph % (Auto) 23.2 (21.8-53.1) % [place] % (Auto) 9.2 (5.3-12.2) % Eos % (Auto) 3.9 (0.8-7.0) Baso % (Auto) 0.3 (0.1-1.2) % Neut # (Auto) 3.92 (1.78-5.38) K/mm3 Lymph # (Auto) 1.44 (1.32-3.57) K/mm3 [place] # (Auto) 0.57 (0.30-0.82) K/mm3 Eos # (Auto) 0.24 (0.04-0.54) K/mm3 Baso # (Auto) 0.02 (0.01-0.08) K/mm3 Sodium 145 (136-145) mEq/L Potassium 3.6 (3.5-5.1) mEq/L Chloride 108 H (98-107) mEq/L Carbon Dioxide 29 (21-32) mEq/L Anion Gap 11.6 (5-15) BUN 8 (7-18) mg/dL Creatinine 0.7 (0.7-1.3) mg/dL Est Cr Clr Drug Dosing 110.84 mL/min Estimated GFR (MDRD) > 60 (>60) mL/min BUN/Creatinine Ratio 11.4 L (14-18) Glucose 77 L (80-115) mg/dL Calcium 8.1 L (8.5-10.1) mg/dL Phosphorus 2.9 (2.6-4.7) mg/dL Magnesium 1.7 L (1.8-2.4) mg/dl C-Reactive Protein 10.2 H* (<1.0) mg/dL [place] Results Last 24 Hours: Microbiology 02/25/20 13:45 Aerobic Blood Culture - Preliminary Blood - Venous - Lab Draw NO GROWTH AFTER 1 DAY Anaerobic Blood Culture - Preliminary NO GROWTH AFTER 1 DAY 02/25/20 13:35 Aerobic Blood Culture - Preliminary Blood - Venous NO GROWTH AFTER 1 DAY Anaerobic Blood Culture - Preliminary NO GROWTH AFTER 1 DAY Med Orders - Current: Current Medications Acetaminophen (Tylenol) 650 mg PO Q6H PRN PRN Reason: Pain Baclofen (Lioresal) 10 mg PO QID [facility] Last Admin: 02/26/20 20:48 Dose: 10 mg Documented by: Benzonatate (Tessalon Perles) 100 mg PO TID PRN PRN Reason: Cough Buspirone HCl (Buspar) 15 mg PO BID [facility] Last Admin: 02/26/20 20:50 Dose: 15 mg Documented by: Carbidopa/Levodopa (Sinemet 25-100 Mg) 1 tab PO QID [facility] Last Admin: 02/26/20 20:49 Dose: 1 tab Documented by: Celecoxib (Celebrex) 200 mg PO DAILY [facility] Last Admin: 02/26/20 08:51 Dose: 200 mg Documented by: Cyclobenzaprine HCl (Flexeril) 5 mg PO TID [facility] Last Admin: 02/26/20 20:51 Dose: 5 mg Documented by: Enoxaparin Sodium (Lovenox) 40 mg SUBCUT DAILY [facility] Last Admin: 02/26/20 08:53 Dose: 40 mg Documented by: Fentanyl (Duragesic) 100 mcg TRDERM Q72H [facility] Last Admin: 02/26/20 17:34 Dose: 100 mcg Documented by: Gabapentin (Neurontin) 200 mg PO TID [facility] Last Admin: 02/26/20 20:50 Dose: 200 mg Documented by: Guaifenesin (Robitussin) 400 mg PO Q4H PRN PRN Reason: Cough Guaifenesin (Mucinex) 600 mg PO BID [facility] Last Admin: 02/26/20 20:49 Dose: 600 mg Documented by: Hydrochlorothiazide (Hydrochlorothiazide) 12.5 mg PO DAILY [facility] Last Admin: 02/26/20 08:49 Dose: 12.5 mg Documented by: Hydromorphone HCl (Dilaudid) 2 mg PO Q6H PRN PRN Reason: Pain Last Admin: 02/27/20 01:57 Dose: 2 mg Documented by: Sodium Chloride (Normal Saline) 1,000 mls @ 100 mls/hr IV ASDIRECTED [facility] Last Admin: 02/26/20 20:46 Dose: 100 mls/hr Documented by: Cefepime HCl 2 gm/ Premix 50 mls @ 100 mls/hr IV Q8H [facility] Last Admin: 02/27/20 06:21 Dose: 100 mls/hr Documented by: Vancomycin HCl 1 gm/ Sodium (Chloride) 250 mls @ 250 mls/hr IV Q12H [facility] Last Admin: 02/26/20 22:00 Dose: 250 mls/hr Documented by: Lactulose (Cephulac) 20 gm PO DAILY PRN PRN Reason: Constipation Lorazepam (Ativan) 1 mg PO BID@1200,1600 [facility] Last Admin: 02/26/20 16:17 Dose: 1 mg Documented by: Lorazepam (Ativan) 1 mg PO BID@0700,1900 [facility] Last Admin: 02/27/20 06:22 Dose: 1 mg Documented by: Losartan Potassium (Cozaar) 50 mg PO DAILY [facility] Last Admin: 02/26/20 08:49 Dose: 50 mg Documented by: Magnesium Oxide (Magnesium Oxide) 400 mg PO BID [facility] Last Admin: 02/26/20 20:49 Dose: 400 mg Documented by: Miscellaneous Information (Remove Patch) 1 ea TRDERM Q72H [facility] Last Admin: 02/26/20 17:39 Dose: Not Given Documented by: Vanco Trough 0 each .XX ONETIME ONE Stop: 02/27/20 10:01 Ondansetron HCl (Zofran Odt) 4 mg PO Q6H PRN PRN Reason: nausea, able to take PO Oxycodone HCl (Oxycodone) 5 mg PO Q4H PRN PRN Reason: Pain (moderate 4-6) Last Admin: 02/26/20 11:23 Dose: 5 mg Documented by: Polyethylene Glycol (Miralax) 17 gm PO DAILY [facility] Last Admin: 02/26/20 08:49 Dose: 17 gm Documented by: Saccharomyces Boulardii (Florastor) 500 mg PO BID [facility] Last Admin: 02/26/20 20:53 Dose: 500 mg Documented by: Senna/Docusate Sodium (Senna Plus) 1 tab PO DAILY [facility] Last Admin: 02/26/20 08:51 Dose: 1 tab Documented by: Senna/Docusate Sodium (Senna Plus) 1 tab PO TID PRN PRN Reason: Constipation Sertraline HCl (Zoloft) 50 mg PO BEDTIME [facility] Last Admin: 02/26/20 20:49 Dose: 50 mg Documented by: Simvastatin (Zocor) 20 mg PO BEDTIME [facility] Last Admin: 02/26/20 20:50 Dose: 20 mg Documented by: Sodium Chloride (Saline Flush) 10 ml FLUSH ASDIRECTED PRN PRN Reason: Keep Vein Open Last Admin: 02/25/20 14:17 Dose: 10 ml Documented by: Terazosin HCl (Hytrin) 5 mg PO BID [facility] Last Admin: 02/26/20 20:48 Dose: 5 mg Documented by: Trazodone HCl (Trazodone) 150 mg PO BEDTIME [facility] Last Admin: 02/26/20 20:51 Dose: 150 mg Documented by: Trolamine Salicylate (Aspercreme 10%) 0 gm TOP Q4H PRN PRN Reason: Pain (mild 1-3) Vancomycin HCl (Pharmacy To Dose - Vancomycin) 1 dose .XX ASDIRECTED [facility] Discontinued Medications Fentanyl (Duragesic) 100 mcg TRDERM Q72H [facility] Hydromorphone HCl (Dilaudid) 2 mg PO Q6H [facility] Last Admin: 02/26/20 08:52 Dose: 2 mg Documented by: Sodium Chloride (Normal Saline) 1,000 mls @ 100 mls/hr IV BOLUS ONE Stop: 02/25/20 23:05 Last Admin: 02/25/20 21:13 Dose: Not Given Documented by: Sodium Chloride (Normal Saline) 1,000 mls @ 150 mls/hr IV NOW STA Stop: 02/25/20 21:19 Last Admin: 02/25/20 16:16 Dose: 150 mls/hr Documented by: Sodium Chloride (Normal Saline) 100 mls @ 75 mls/hr IV ASDIRECTED [facility] Last Admin: 02/25/20 15:22 Dose: 75 mls/hr Documented by: Ceftriaxone Sodium 1 gm/ (Sodium Chloride) 100 mls @ 200 mls/hr IV ONETIME ONE Stop: 02/25/20 16:17 Last Admin: 02/25/20 21:13 Dose: Not Given Documented by: Levofloxacin/Dextrose 750 mg/ (Premix) 150 mls @ 100 mls/hr IV ONETIME ONE Stop: 02/25/20 17:22 Last Admin: 02/25/20 16:18 Dose: 100 mls/hr Documented by: Iopamidol (Isovue-370 (76%)) 100 ml IVPUSH ONETIME ONE Stop: 02/25/20 14:44 Last Admin: 02/25/20 15:22 Dose: 100 ml Documented by: Miscellaneous Information (Remove Patch) 1 ea TRDERM Q72H [facility] Sodium Chloride (Saline Flush) 10 ml FLUSH ONETIME PRN PRN Reason: IV FLUSH Last Admin: 02/25/20 15:22 Dose: 10 ml Documented by: - Exam Quality Assessment: Supplemental Oxygen General: Alert, Oriented HEENT: Pupils Equal, Mucous Membr. Moist/[place] Neck: Supple Lungs: Clear to Auscultation, Normal Respiratory Effort Cardiovascular: Regular Rate, Regular Rhythm GI/Abdominal Exam: Normal Bowel Sounds, Soft, Non-Tender, No Organomegaly, No Distention, No Abnormal Bruit, No Mass, Pelvis Stable Sepsis Event Note - Evaluation Sepsis Screening Result: No Definite Risk - Focused Exam Vital Signs: Vital Signs Temp Pulse Resp BP BP Pulse Ox 02/27/20 00:00 97.9 F 68 14 112/60 94 L 02/26/20 20:48 116/58 L - Problem List & Annotations (1) Healthcare-associated pneumonia SNOMED Code(s): 591823477, 675796603 Code(s): J18.9 - PNEUMONIA, UNSPECIFIED ORGANISM Status: Acute Current Visit: Yes (2) Hypoxemia SNOMED Code(s): 800553083 Code(s): R09.02 - HYPOXEMIA Status: Acute Current Visit: Yes - Problem List Review Problem List Initiated/Reviewed/Updated: Yes - My Orders Last 24 Hours: My Active Orders 02/26/20 Breakfast Pureed Diet [DIET] Thickened Liquids [DIET] LORazepam [Ativan] 1 mg PO BID@0700,1900 02/26/20 09:00 Celecoxib [CeleBREX] 200 mg PO DAILY Docusate Sodium/Sennosides [Senna Plus] 1 tab PO DAILY Enoxaparin [Lovenox] 40 mg SUBCUT DAILY Losartan [Cozaar] 50 mg PO DAILY Saccharomyces Boulardii [Florastor] 500 mg PO BID hydroCHLOROthiazide 12.5 mg PO DAILY polyethylene glycoL 3350 [MiraLAX] 17 gm PO DAILY 02/26/20 11:55 HYDROmorphone [Dilaudid] 2 mg PO Q6H PRN 02/26/20 12:00 LORazepam [Ativan] 1 mg PO BID@1200,1600 02/26/20 17:00 Remove Patch 1 ea TRDERM Q72H fentaNYL [Duragesic] 100 mcg TRDERM Q72H 02/27/20 10:00 Non-Formulary Medication [NF Drug] 0 each .XX ONETIME ONE 02/27/20 10:30 VANCOMYCIN TROUGH [CHEM] Timed - Plan Plan:: Assessment 02/25/2020 64-year-old male with history of recurrent pneumonia, UTI, and recent hospitalization returns with hypoxemia and hypercapnia. Healthcare associated pneumonia Small bilateral pleural effusions that appear to be chronic * Although CT scan does not show specific area of pneumonia just possible area of pneumonia he does have multiple criteria for pneumonia. 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 Follow blood cultures. Follow CBC, BMP. Patient may need to have his pain medications simplified if there is some possibility that he is having respiratory depression due to narcotic medication. * VTE prophylaxis with Lovenox * DNR/DNI 02/26/2020 Patient has improvement in his hospital-acquired pneumonia. Tolerating cefepime and vancomycin. Continues to have pain but this is not worse than his baseline. Still requiring 2 L nasal cannula to keep SPO2 in the low 90s. White count elevated 13.1. Hypomagnesemia: Magnesium 1.7 requesting breakthrough pain meds approximate ever y 2 hours. Plan Continue cefepime and vancomycin Try to wean FiO2, but patient may need to go back to [facility] on O2 Adjust pain medications as tolerated
--- NOTE | 2020-02-27 08:01 | PCM.PN ---
- General Info Date of Service: 02/27/20 Admission Dx/Problem (Free Text): Admission Diagnosis/Problem Admission Diagnosis/Problem Pneumonia Subjective Update: No overnight or acute issues. He wants his diet advanced. He is afebrile and WBC is now back to normal. He remains low at 1.7 and CRP is slightly elevated at 10.2. Blood cultures were negative. Influenza and COVID-19 tests were both negative. Functional Status: Reports: Pain Controlled, Urinating. Denies: Ambulating, New Symptoms - Review of Systems General: Denies: Fever, Chills Pulmonary: Reports: Cough, Sputum. Denies: Shortness of Breath Cardiovascular: Denies: Chest Pain Gastrointestinal: Denies: Abdominal Pain, Nausea, Vomiting Genitourinary: Reports: No Symptoms Musculoskeletal: Denies: Joint Pain Skin: Denies: Cyanosis Neurological: Denies: Confusion Psychiatric: Denies: Anxiety, Cravings, Hallucinations - Patient Data Vitals - Most Recent: Last Vital Signs Temp 36.8 C 02/27/20 06:20 Pulse 57 L 02/27/20 06:20 Resp 14 02/27/20 06:20 BP 108/62 02/27/20 06:20 Pulse Ox 94 L 02/27/20 06:20 Weight - Most Recent: 71.713 kg I&O - Last 24 Hours: Intake & Output 02/26/20 02/27/20 02/27/20 22:59 06:59 14:59 Intake Total 2310 2093 Output Total 800 Balance 2310 1293 Lab Results Last 24 Hours: Laboratory Results - last 24 hr 02/27/20 02/27/20 Range/Units 04:26 04:26 WBC 6.20 (4.23-9.07) K/mm3 RBC 3.87 L (4.63-6.08) M/mm3 Hgb 10.6 L D (13.7-17.5) gm/dl Hct 34.6 L (40.1-51.0) % MCV 89.4 (79.0-92.2) fl MCH 27.4 (25.7-32.2) pg MCHC 30.6 L (32.2-35.5) g/dl RDW Std Deviation 44.9 H (35.1-43.9) fL Plt Count 196 (163-337) K/mm3 MPV 11.3 (9.4-12.3) fl Neut % (Auto) 63.2 (34.0-67.9) % Lymph % (Auto) 23.2 (21.8-53.1) % [place] % (Auto) 9.2 (5.3-12.2) % Eos % (Auto) 3.9 (0.8-7.0) Baso % (Auto) 0.3 (0.1-1.2) % Neut # (Auto) 3.92 (1.78-5.38) K/mm3 Lymph # (Auto) 1.44 (1.32-3.57) K/mm3 Rolette # (Auto) 0.57 (0.30-0.82) K/mm3 Eos # (Auto) 0.24 (0.04-0.54) K/mm3 Baso # (Auto) 0.02 (0.01-0.08) K/mm3 Sodium 145 (136-145) mEq/L Potassium 3.6 (3.5-5.1) mEq/L Chloride 108 H (98-107) mEq/L Carbon Dioxide 29 (21-32) mEq/L Anion Gap 11.6 (5-15) BUN 8 (7-18) mg/dL Creatinine 0.7 (0.7-1.3) mg/dL Est Cr Clr Drug Dosing 110.84 mL/min Estimated GFR (MDRD) > 60 (>60) mL/min BUN/Creatinine Ratio 11.4 L (14-18) Glucose 77 L (80-115) mg/dL Calcium 8.1 L (8.5-10.1) mg/dL Phosphorus 2.9 (2.6-4.7) mg/dL Magnesium 1.7 L (1.8-2.4) mg/dl C-Reactive Protein 10.2 H* (<1.0) mg/dL Rommel Results Last 24 Hours: Microbiology 02/25/20 13:45 Aerobic Blood Culture - Preliminary Blood - Venous - Lab Draw NO GROWTH AFTER 1 DAY Anaerobic Blood Culture - Preliminary NO GROWTH AFTER 1 DAY 02/25/20 13:35 Aerobic Blood Culture - Preliminary Blood - Venous NO GROWTH AFTER 1 DAY Anaerobic Blood Culture - Preliminary NO GROWTH AFTER 1 DAY Med Orders - Current: Current Medications Acetaminophen (Tylenol) 650 mg PO Q6H PRN PRN Reason: Pain Baclofen (Lioresal) 10 mg PO QID [facility] Last Admin: 02/26/20 20:48 Dose: 10 mg Documented by: Benzonatate (Tessalon Perles) 100 mg PO TID PRN PRN Reason: Cough Buspirone HCl (Buspar) 15 mg PO BID [facility] Last Admin: 02/26/20 20:50 Dose: 15 mg Documented by: Carbidopa/Levodopa (Sinemet 25-100 Mg) 1 tab PO QID [facility] Last Admin: 02/26/20 20:49 Dose: 1 tab Documented by: Celecoxib (Celebrex) 200 mg PO DAILY [facility] Last Admin: 02/26/20 08:51 Dose: 200 mg Documented by: Cyclobenzaprine HCl (Flexeril) 5 mg PO TID [facility] Last Admin: 02/26/20 20:51 Dose: 5 mg Documented by: Enoxaparin Sodium (Lovenox) 40 mg SUBCUT DAILY [facility] Last Admin: 02/26/20 08:53 Dose: 40 mg Documented by: Fentanyl (Duragesic) 100 mcg TRDERM Q72H [facility] Last Admin: 02/26/20 17:34 Dose: 100 mcg Documented by: Gabapentin (Neurontin) 200 mg PO TID [facility] Last Admin: 02/26/20 20:50 Dose: 200 mg Documented by: Guaifenesin (Robitussin) 400 mg PO Q4H PRN PRN Reason: Cough Guaifenesin (Mucinex) 600 mg PO BID [facility] Last Admin: 02/26/20 20:49 Dose: 600 mg Documented by: Hydrochlorothiazide (Hydrochlorothiazide) 12.5 mg PO DAILY [facility] Last Admin: 02/26/20 08:49 Dose: 12.5 mg Documented by: Hydromorphone HCl (Dilaudid) 2 mg PO Q6H PRN PRN Reason: Pain Last Admin: 02/27/20 01:57 Dose: 2 mg Documented by: Sodium Chloride (Normal Saline) 1,000 mls @ 100 mls/hr IV ASDIRECTED [facility] Last Admin: 02/26/20 20:46 Dose: 100 mls/hr Documented by: Cefepime HCl 2 gm/ Premix 50 mls @ 100 mls/hr IV Q8H [facility] Last Admin: 02/27/20 06:21 Dose: 100 mls/hr Documented by: Vancomycin HCl 1 gm/ Sodium (Chloride) 250 mls @ 250 mls/hr IV Q12H [facility] Last Admin: 02/26/20 22:00 Dose: 250 mls/hr Documented by: Lactulose (Cephulac) 20 gm PO DAILY PRN PRN Reason: Constipation Lorazepam (Ativan) 1 mg PO BID@1200,1600 [facility] Last Admin: 02/26/20 16:17 Dose: 1 mg Documented by: Lorazepam (Ativan) 1 mg PO BID@0700,1900 [facility] Last Admin: 02/27/20 06:22 Dose: 1 mg Documented by: Losartan Potassium (Cozaar) 50 mg PO DAILY [facility] Last Admin: 02/26/20 08:49 Dose: 50 mg Documented by: Magnesium Oxide (Magnesium Oxide) 400 mg PO BID [facility] Last Admin: 02/26/20 20:49 Dose: 400 mg Documented by: Miscellaneous Information (Remove Patch) 1 ea TRDERM Q72H [facility] Last Admin: 02/26/20 17:39 Dose: Not Given Documented by: Vanco Trough 0 each .XX ONETIME ONE Stop: 02/27/20 10:01 Ondansetron HCl (Zofran Odt) 4 mg PO Q6H PRN PRN Reason: nausea, able to take PO Oxycodone HCl (Oxycodone) 5 mg PO Q4H PRN PRN Reason: Pain (moderate 4-6) Last Admin: 02/26/20 11:23 Dose: 5 mg Documented by: Polyethylene Glycol (Miralax) 17 gm PO DAILY [facility] Last Admin: 02/26/20 08:49 Dose: 17 gm Documented by: Saccharomyces Boulardii (Florastor) 500 mg PO BID [facility] Last Admin: 02/26/20 20:53 Dose: 500 mg Documented by: Senna/Docusate Sodium (Senna Plus) 1 tab PO DAILY [facility] Last Admin: 02/26/20 08:51 Dose: 1 tab Documented by: Senna/Docusate Sodium (Senna Plus) 1 tab PO TID PRN PRN Reason: Constipation Sertraline HCl (Zoloft) 50 mg PO BEDTIME [facility] Last Admin: 02/26/20 20:49 Dose: 50 mg Documented by: Simvastatin (Zocor) 20 mg PO BEDTIME [facility] Last Admin: 02/26/20 20:50 Dose: 20 mg Documented by: Sodium Chloride (Saline Flush) 10 ml FLUSH ASDIRECTED PRN PRN Reason: Keep Vein Open Last Admin: 02/25/20 14:17 Dose: 10 ml Documented by: Terazosin HCl (Hytrin) 5 mg PO BID [facility] Last Admin: 02/26/20 20:48 Dose: 5 mg Documented by: Trazodone HCl (Trazodone) 150 mg PO BEDTIME [facility] Last Admin: 02/26/20 20:51 Dose: 150 mg Documented by: Trolamine Salicylate (Aspercreme 10%) 0 gm TOP Q4H PRN PRN Reason: Pain (mild 1-3) Vancomycin HCl (Pharmacy To Dose - Vancomycin) 1 dose .XX ASDIRECTED [facility] Discontinued Medications Fentanyl (Duragesic) 100 mcg TRDERM Q72H [facility] Hydromorphone HCl (Dilaudid) 2 mg PO Q6H [facility] Last Admin: 02/26/20 08:52 Dose: 2 mg Documented by: Sodium Chloride (Normal Saline) 1,000 mls @ 100 mls/hr IV BOLUS ONE Stop: 02/25/20 23:05 Last Admin: 02/25/20 21:13 Dose: Not Given Documented by: Sodium Chloride (Normal Saline) 1,000 mls @ 150 mls/hr IV NOW STA Stop: 02/25/20 21:19 Last Admin: 02/25/20 16:16 Dose: 150 mls/hr Documented by: Sodium Chloride (Normal Saline) 100 mls @ 75 mls/hr IV ASDIRECTED [facility] Last Admin: 02/25/20 15:22 Dose: 75 mls/hr Documented by: Ceftriaxone Sodium 1 gm/ (Sodium Chloride) 100 mls @ 200 mls/hr IV ONETIME ONE Stop: 02/25/20 16:17 Last Admin: 02/25/20 21:13 Dose: Not Given Documented by: Levofloxacin/Dextrose 750 mg/ (Premix) 150 mls @ 100 mls/hr IV ONETIME ONE Stop: 02/25/20 17:22 Last Admin: 02/25/20 16:18 Dose: 100 mls/hr Documented by: Iopamidol (Isovue-370 (76%)) 100 ml IVPUSH ONETIME ONE Stop: 02/25/20 14:44 Last Admin: 02/25/20 15:22 Dose: 100 ml Documented by: Miscellaneous Information (Remove Patch) 1 ea TRDERM Q72H [facility]AS[facility] Sodium Chloride (Saline Flush) 10 ml FLUSH ONETIME PRN PRN Reason: IV FLUSH Last Admin: 02/25/20 15:22 Dose: 10 ml Documented by: - Exam Quality Assessment: Supplemental Oxygen General: Alert, Oriented, Cooperative, No Acute Distress HEENT: Pupils Equal, Pupils Reactive, EOMI, Mucous Membr. Moist/[place] Neck: Supple, Other (neck: leans to the left side) Lungs: Rhonchi Cardiovascular: Regular Rate, Regular Rhythm GI/Abdominal Exam: Normal Bowel Sounds, Soft, Non-Tender, No Organomegaly, No Distention (Male) Exam: Deferred Extremities: Normal Inspection, Other (MSK contructures: upper and lower extremities). No: Normal Range of Motion Peripheral Pulses: 2+: Dorsalis Pedis (L), Dorsalis Pedis (R) Skin: Warm, Dry, Intact Neurological: No New Focal Deficit, Normal Gait, Other (has baseline). No: Normal Speech, Strength Equal Bilateral Psy/Mental Status: Alert, Normal Affect, Normal Mood Physical Findings Comments:: Has underlying progressive supranuclear palsy Sepsis Event Note - Evaluation Sepsis Screening Result: No Definite Risk - Focused Exam Vital Signs: Vital Signs Temp Temp Pulse Pulse Resp BP BP 02/27/20 06:20 36.8 C 57 L 14 108/62 02/27/20 00:00 36.6 C 68 14 112/60 02/26/20 20:48 116/58 L Pulse Ox 02/27/20 06:20 94 L 02/27/20 00:00 94 L 02/26/20 20:48 - Problem List Review Problem List Initiated/Reviewed/Updated: Yes - Plan Plan:: Assessment: Acute: 64-year-old male with history of recurrent pneumonia, UTI, and recent hospitalization returns with hypoxemia and hypercapnia. Healthcare associated pneumonia Small bilateral pleural effusions that appear to be chronic * Although CT scan does not show specific area of pneumonia just possible area of pneumonia he does have multiple criteria for pneumonia * White count is elevated at 12 * C-reactive protein 9.1 * Normal lactic acid * Given Levaquin 750 mg IV in emergency department * Recent discharge from hospital secondary to pneumonia and Pseudomonas UTI * Pseudomonas was resistant to fluoroquinolones Leukocytosis * Likely secondary to underlying infection * Now resolved Elevated D-Dimer * CTA negative for PE Small left Sided Pleural Effusion * CT scan finding * IS as directed Old Left Sided-Rib Fractures with one rib fracture showing no definite bridging callus * Chest CT scan report finding Hypomagnesemia * Mg of 1.7 * Will replete and monitor Hypoalbuminemia * Albumin of 3.0 * 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
[2020-02-27] MEDS: Polyethylene Glycol 3350 Powder 17 GM Packet PO SCH (08:57)
[2020-02-27] MEDS: oxyCODONE 5 MG Tab PO PRN ×2 (08:57→15:25)
[2020-02-27] MEDS: guaiFENesin 600 MG Tab.ER PO SCH ×2 (08:57→21:31)
[2020-02-27] MEDS: Baclofen 10 MG Tab PO SCH ×4 (08:57→21:31)
[2020-02-27] MEDS: Carbidopa/Levodopa 25-100 MG Tab PO SCH ×4 (08:58→21:31)
[2020-02-27] MEDS: Terazosin 5 MG Cap PO SCH ×2 (08:58→21:27)
[2020-02-27] MEDS: Losartan 50 MG Tab PO SCH (08:58)
[2020-02-27] MEDS: Cyclobenzaprine 10 MG Tab PO SCH ×3 (08:58→21:32)
[2020-02-27] MEDS: busPIRone 15 MG Tab PO SCH ×2 (08:58→21:32)
[2020-02-27] MEDS: Magnesium Oxide 400 MG Tab PO SCH ×2 (08:58→21:28)
[2020-02-27] MEDS: Saccharomyces Boulardii (Probiotic) 250 MG Cap PO SCH ×2 (08:58→21:29)
[2020-02-27] MEDS: Celecoxib 100 MG Cap PO SCH (08:59)
[2020-02-27] MEDS: Hydrochlorothiazide 12.5 MG Cap PO SCH (08:59)
[2020-02-27] MEDS: Enoxaparin 40 MG/0.4 ML Syringe SUBCUT SCH (08:59)
[2020-02-27] MEDS: Gabapentin 100 MG Cap PO SCH ×3 (08:59→21:28)
[2020-02-27] MEDS: Sodium Chloride 0.9% 1,000 ML IV SCH (09:08)
[2020-02-27] MEDS ORDERED: [UNRECOGNIZED DRUG - REMARK] ONE (10:00)
[2020-02-27] MEDS ORDERED: Sodium Chloride 0.9% 1,000 ML IV SCH (18:45)
[2020-02-27] MEDS: traZODone 50 MG Tab PO SCH (21:28)
[2020-02-27] MEDS: Sertraline 50 MG Tab PO SCH (21:30)
[2020-02-27] MEDS: Simvastatin 20 MG Tab PO SCH (21:31)
[2020-02-28] MEDS: Cefepime 2 GM in Premix Bag 1 BAG IV SCH ×3 (06:16→22:29)
[2020-02-28] MEDS: LORazepam 1 MG Tab PO SCH ×4 (06:16→18:39)
--- NOTE | 2020-02-28 07:29 | PCM.PN ---
- General Info Date of Service: 02/28/20 Admission Dx/Problem (Free Text): Admission Diagnosis/Problem Admission Diagnosis/Problem Pneumonia Subjective Update: In to see David. He reports he feels better and that his neck is his biggest complaint right now. He reports this pain is chronic for him. Otherwise he is improving. Labs look good. Continue current treatment plan. 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 Functional Status: Reports: Pain Controlled, Tolerating Diet, Urinating. Denies: Ambulating (baseline ), New Symptoms - Review of Systems General: Reports: Weakness. Denies: Fever, Fatigue, Malaise, Chills HEENT: Reports: No Symptoms. Denies: Headaches, Sore Throat Pulmonary: Reports: No Symptoms. Denies: Shortness of Breath, Pleuritic Chest Pain, Cough, Sputum, Wheezing Cardiovascular: Reports: No Symptoms. Denies: Chest Pain, Palpitations, Dyspnea on Exertion Gastrointestinal: Reports: No Symptoms. Denies: Abdominal Pain, Constipation, Diarrhea, Nausea, Vomiting Genitourinary: Reports: No Symptoms. Denies: Pain Musculoskeletal: Reports: Neck Pain (chronic left ) Skin: Reports: No Symptoms. 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 Denies: Confusion, Numbness, Tingling Psychiatric: Reports: No Symptoms - Patient Data Vitals - Most Recent: Last Vital Signs Temp 97.5 F 02/28/20 03:44 Pulse 51 L 02/28/20 03:44 Resp 16 02/27/20 23:30 BP 96/52 L 02/28/20 03:44 Pulse Ox 91 L 02/28/20 03:44 Weight - Most Recent: 159 lb 4.8 oz I&O - Last 24 Hours: Intake & Output 02/27/20 02/28/20 02/28/20 22:59 06:59 14:59 Intake Total 1800 360 Output Total 200 Balance 1600 360 Lab Results Last 24 Hours: Laboratory Results - last 24 hr 02/27/20 Range/Units 10:47 Vancomycin Trough 11.1 (10.0-20.0) [place]mel Results Last 24 Hours: Microbiology 02/25/20 13:45 Aerobic Blood Culture - Preliminary Blood - Venous - Lab Draw NO GROWTH AFTER 2 DAYS Anaerobic Blood Culture - Preliminary NO GROWTH AFTER 2 DAYS 02/25/20 13:35 Aerobic Blood Culture - Preliminary Blood - Venous NO GROWTH AFTER 2 DAYS Anaerobic Blood Culture - Preliminary NO GROWTH AFTER 2 DAYS Med Orders - Current: Current Medications Acetaminophen (Tylenol) 650 mg PO Q6H PRN PRN Reason: Pain Baclofen (Lioresal) 10 mg PO QID [facility] Last Admin: 02/27/20 21:31 Dose: 10 mg Documented by: Benzonatate (Tessalon Perles) 100 mg PO TID PRN PRN Reason: Cough Buspirone HCl (Buspar) 15 mg PO BID [facility] Last Admin: 02/27/20 21:32 Dose: 15 mg Documented by: Carbidopa/Levodopa (Sinemet 25-100 Mg) 1 tab PO QID [facility] Last Admin: 02/27/20 21:31 Dose: 1 tab Documented by: Celecoxib (Celebrex) 200 mg PO DAILY [facility] Last Admin: 02/27/20 08:59 Dose: 200 mg Documented by: Cyclobenzaprine HCl (Flexeril) 5 mg PO TID [facility] Last Admin: 02/27/20 21:32 Dose: 5 mg Documented by: Enoxaparin Sodium (Lovenox) 40 mg SUBCUT DAILY [facility] Last Admin: 02/27/20 08:59 Dose: 40 mg Documented by: Fentanyl (Duragesic) 100 mcg TRDERM Q72H [facility] Last Admin: 02/26/20 17:34 Dose: 100 mcg Documented by: Gabapentin (Neurontin) 200 mg PO TID [facility] Last Admin: 02/27/20 21:28 Dose: 200 mg Documented by: Guaifenesin (Robitussin) 400 mg PO Q4H PRN PRN Reason: Cough Guaifenesin (Mucinex) 600 mg PO BID [facility] Last Admin: 02/27/20 21:31 Dose: 600 mg Documented by: Hydrochlorothiazide (Hydrochlorothiazide) 12.5 mg PO DAILY [facility] Last Admin: 02/27/20 08:59 Dose: 12.5 mg Documented by: Hydromorphone HCl (Dilaudid) 2 mg PO Q6H PRN PRN Reason: Pain Last Admin: 02/27/20 18:09 Dose: 2 mg Documented by: Cefepime HCl 2 gm/ Premix 50 mls @ 100 mls/hr IV Q8H [facility] Last Admin: 02/28/20 06:16 Dose: 100 mls/hr Documented by: Vancomycin HCl 1.25 gm/ Sodium (Chloride) 250 mls @ 250 mls/hr IV Q12H [facility] Last Admin: 02/27/20 22:04 Dose: 250 mls/hr Documented by: Sodium Chloride (Normal Saline) 1,000 mls @ 25 mls/hr IV ASDIRECTED [facility] Last Admin: 02/27/20 21:33 Dose: 25 mls/hr Documented by: Lactulose (Cephulac) 20 gm PO DAILY PRN PRN Reason: Constipation Lorazepam (Ativan) 1 mg PO BID@1200,1600 [facility] Last Admin: 02/27/20 15:24 Dose: 1 mg Documented by: Lorazepam (Ativan) 1 mg PO BID@0700,1900 [facility] Last Admin: 02/28/20 06:16 Dose: 1 mg Documented by: Losartan Potassium (Cozaar) 50 mg PO DAILY [facility] Last Admin: 02/27/20 08:58 Dose: 50 mg Documented by: Magnesium Oxide (Magnesium Oxide) 400 mg PO BID [facility] Last Admin: 02/27/20 21:28 Dose: 400 mg Documented by: Miscellaneous Information (Remove Patch) 1 ea TRDERM Q72H [facility] Last Admin: 02/26/20 17:39 Dose: Not Given Documented by: Ondansetron HCl (Zofran Odt) 4 mg PO Q6H PRN PRN Reason: nausea, able to take PO Oxycodone HCl (Oxycodone) 5 mg PO Q4H PRN PRN Reason: Pain (moderate 4-6) Last Admin: 02/27/20 15:25 Dose: 5 mg Documented by: Polyethylene Glycol (Miralax) 17 gm PO DAILY [facility] Last Admin: 02/27/20 08:57 Dose: 17 gm Documented by: Saccharomyces Boulardii (Florastor) 500 mg PO BID [facility] Last Admin: 02/27/20 21:29 Dose: 500 mg Documented by: Senna/Docusate Sodium (Senna Plus) 1 tab PO DAILY [facility] Last Admin: 02/27/20 08:58 Dose: 1 tab Documented by: Senna/Docusate Sodium (Senna Plus) 1 tab PO TID PRN PRN Reason: Constipation Sertraline HCl (Zoloft) 50 mg PO BEDTIME [facility] Last Admin: 02/27/20 21:30 Dose: 50 mg Documented by: Simvastatin (Zocor) 20 mg PO BEDTIME [facility] Last Admin: 02/27/20 21:31 Dose: 20 mg Documented by: Sodium Chloride (Saline Flush) 10 ml FLUSH ASDIRECTED PRN PRN Reason: Keep Vein Open Last Admin: 02/25/20 14:17 Dose: 10 ml Documented by: Terazosin HCl (Hytrin) 5 mg PO BID [facility] Last Admin: 02/27/20 21:27 Dose: 5 mg Documented by: Trazodone HCl (Trazodone) 150 mg PO BEDTIME [facility] Last Admin: 02/27/20 21:28 Dose: 150 mg Documented by: Trolamine Salicylate (Aspercreme 10%) 0 gm TOP Q4H PRN PRN Reason: Pain (mild 1-3) Vancomycin HCl (Pharmacy To Dose - Vancomycin) 1 dose .XX ASDIRECTED [facility] Discontinued Medications Fentanyl (Duragesic) 100 mcg TRDERM Q72H [facility] Hydromorphone HCl (Dilaudid) 2 mg PO Q6H [facility] Last Admin: 02/26/20 08:52 Dose: 2 mg Documented by: Sodium Chloride (Normal Saline) 1,000 mls @ 100 mls/hr IV BOLUS ONE Stop: 02/25/20 23:05 Last Admin: 02/25/20 21:13 Dose: Not Given Documented by: Sodium Chloride (Normal Saline) 1,000 mls @ 150 mls/hr IV NOW STA Stop: 02/25/20 21:19 Last Admin: 02/25/20 16:16 Dose: 150 mls/hr Documented by: Sodium Chloride (Normal Saline) 100 mls @ 75 mls/hr IV ASDIRECTED [facility] Last Admin: 02/25/20 15:22 Dose: 75 mls/hr Documented by: Ceftriaxone Sodium 1 gm/ (Sodium Chloride) 100 mls @ 200 mls/hr IV ONETIME ONE Stop: 02/25/20 16:17 Last Admin: 02/25/20 21:13 Dose: Not Given Documented by: Levofloxacin/Dextrose 750 mg/ (Premix) 150 mls @ 100 mls/hr IV ONETIME ONE Stop: 02/25/20 17:22 Last Admin: 02/25/20 16:18 Dose: 100 mls/hr Documented by: Sodium Chloride (Normal Saline) 1,000 mls @ 100 mls/hr IV ASDIRECTED [facility] Last Admin: 02/27/20 09:08 Dose: 100 mls/hr Documented by: Vancomycin HCl 1 gm/ Sodium (Chloride) 250 mls @ 250 mls/hr IV Q12H [facility] Last Admin: 02/27/20 12:01 Dose: 250 mls/hr Documented by: Iopamidol (Isovue-370 (76%)) 100 ml IVPUSH ONETIME ONE Stop: 02/25/20 14:44 Last Admin: 02/25/20 15:22 Dose: 100 ml Documented by: Miscellaneous Information (Remove Patch) 1 ea TRDERM Q72H [facility] Vanco Trough 0 each .XX ONETIME ONE Stop: 02/27/20 10:01 Last Admin: 02/27/20 13:30 Dose: Not Given Documented by: Sodium Chloride (Saline Flush) 10 ml FLUSH ONETIME PRN PRN Reason: IV FLUSH Last Admin: 02/25/20 15:22 Dose: 10 ml Documented by: - Exam Quality Assessment: Supplemental Oxygen (2L), DVT Prophylaxis. No: Urine Catheter General: Alert, Oriented, Cooperative, No Acute Distress HEENT: Pupils Equal, Pupils Reactive, Mucous Membr. Moist/Wink Neck: Supple, Trachea Midline Lungs: Normal Respiratory Effort, Decreased Breath Sounds, Rhonchi Cardiovascular: Regular Rate, Regular Rhythm GI/Abdominal Exam: Normal Bowel Sounds, Soft, Non-Tender, No Organomegaly, No Distention (Male) Exam: Deferred Back Exam: Decreased Range of Motion (chronic ). No: Normal Inspection Extremities: Non-Tender, No Pedal Edema, Limited Range of Motion (chronic ), Other (underlying progressive supranuclear palsy ). No: Normal Inspection (bilateral upper and lower extremity contractures ) Skin: Warm, Dry, Intact Neurological: No New Focal Deficit Psy/Mental Status: Alert Sepsis Event Note - Evaluation Sepsis Screening Result: No Definite Risk - Focused Exam Vital Signs: Vital Signs Temp Pulse Resp BP Pulse Ox 02/28/20 03:44 97.5 F 51 L 96/52 L 91 L 02/27/20 23:30 98.1 F 56 L 16 106/60 96 02/27/20 21:27 110/62 - Problem List & Annotations (1) Healthcare-associated pneumonia SNOMED Code(s): 776664955, 767488110 Code(s): J18.9 - PNEUMONIA, UNSPECIFIED ORGANISM Status: Acute Priority: High Current Visit: Yes (2) Hypoxemia SNOMED Code(s): 653737529 Code(s): R09.02 - HYPOXEMIA Status: Acute Priority: High Current Visit: Yes (3) Leukocytosis SNOMED Code(s): 566352249, 738083324 Code(s): D72.829 - ELEVATED WHITE BLOOD CELL COUNT, UNSPECIFIED Status: Acute Priority: High Current Visit: Yes Qualifiers: Leukocytosis type: unspecified Qualified Code(s): D72.829 - Elevated white blood cell count, unspecified (4) Acute respiratory acidosis SNOMED Code(s): 68912798 Code(s): E87.2 - ACIDOSIS Status: Acute Current Visit: No (5) Benign prostate hyperplasia SNOMED Code(s): 029984585 Code(s): N40.0 - BENIGN PROSTATIC HYPERPLASIA WITHOUT LOWER URINRY TRACT SYMP Status: Chronic Priority: Low Current Visit: No Qualifiers: Lower urinary tract symptom presence: unspecified whether lower urinary tract symptoms present Qualified Code(s): N40.0 - Benign prostatic hyperplasia without lower urinary tract symptoms (6) Detection of methicillin resistant Staphylococcus aureus (MRSA) DNA SNOMED Code(s): 324763072 Code(s): R89.9 - UNSP ABNORMAL FINDING IN SPECIMENS FROM OTH ORG/TISS Status: Chronic Priority: Low Current Visit: No (7) Dyslipidemia SNOMED Code(s): 469381883 Code(s): E78.5 - HYPERLIPIDEMIA, UNSPECIFIED Status: Chronic Priority: Low Current Visit: No (8) GERD (gastroesophageal reflux disease) SNOMED Code(s): 664219726 Code(s): K21.9 - GASTRO-ESOPHAGEAL REFLUX DISEASE WITHOUT ESOPHAGITIS Status: Chronic Priority: Low Current Visit: No Qualifiers: Esophagitis presence: esophagitis presence not specified Qualified Code(s): K21.9 - Gastro-esophageal reflux disease without esophagitis (9) Hypertension SNOMED Code(s): 14538016 Code(s): I10 - ESSENTIAL (PRIMARY) HYPERTENSION Status: Chronic Priority: Low Current Visit: No Qualifiers: Hypertension type: unspecified Qualified Code(s): I10 - Essential (primary) hypertension (10) Hypoalbuminemia SNOMED Code(s): 776281845 Code(s): E88.09 - OTH DISORDERS OF PLASMA-PROTEIN METABOLISM, NEC Status: Chronic Priority: Low Current Visit: No (11) Anxiety SNOMED Code(s): 01786815 Code(s): F41.9 - ANXIETY DISORDER, UNSPECIFIED Status: Chronic Priority: Medium Current Visit: No (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 SNOMED Code(s): 73385416 Code(s): G23.1 - PROGRESSIVE SUPRANUCLEAR OPHTHALMOPLEGIA Status: Chronic Priority: Medium Current Visit: No (13) Swallowing impairment SNOMED Code(s): 835326688 Code(s): R13.10 - DYSPHAGIA, UNSPECIFIED Status: Chronic Priority: Medium Current Visit: No (14) Wheelchair bound SNOMED Code(s): 120564382, 381030750 Code(s): Z99.3 - DEPENDENCE ON WHEELCHAIR Status: Chronic [facility] Visit: No (15) half-way resident SNOMED Code(s): 639288732 Code(s): Z59.3 - PROBLEMS RELATED TO LIVING IN RESIDENTIAL INSTITUTION Status: Chronic Priority: Low Current Visit: No - Problem List Review Problem List Initiated/Reviewed/Updated: Yes - Plan Plan:: Assessment: Acute: 64-year-old male with history of recurrent pneumonia, UTI, and recent hospitalization returns with hypoxemia and hypercapnia. Healthcare associated pneumonia Small bilateral pleural effusions that appear to be chronic half-way resident * Although CT scan does not show specific area of pneumonia just possible area of pneumonia he does have multiple criteria for pneumonia * White count is elevated at 12-->5.28 * C-reactive protein 9.1-->7.5 * Normal lactic acid * Given Levaquin 750 mg IV in emergency department * Started on cefepime and vancomycin on floor * Not on oxygen at [facility] Recent discharge from hospital secondary to pneumonia and Pseudomonas UTI * Pseudomonas was resistant to fluoroquinolones Leukocytosis * Likely secondary to underlying infection * Now resolved Elevated D-Dimer * CTA negative for PE Small left Sided Pleural Effusion * CT scan finding * IS as directed Old Left Sided-Rib Fractures with one rib fracture showing no definite bridging callus * Chest CT scan report finding Hypomagnesemia * Mg of 1.7-->1.8 * Will replete and monitor Hypoalbuminemia * Albumin of 3.0 * Link Machine Operator consult Elevated CRP level * Likely from underlying pneumonia * Continue IV antibiotics: vancomycin and cefepime 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
[2020-02-28] MEDS: Magnesium Oxide 400 MG Tab PO SCH ×2 (09:11→21:19)
[2020-02-28] MEDS: Terazosin 5 MG Cap PO SCH ×2 (09:11→21:24)
[2020-02-28] MEDS: Celecoxib 100 MG Cap PO SCH (09:11)
[2020-02-28] MEDS: Gabapentin 100 MG Cap PO SCH ×3 (09:11→21:17)
[2020-02-28] MEDS: Carbidopa/Levodopa 25-100 MG Tab PO SCH ×4 (09:15→21:21)
[2020-02-28] MEDS: Losartan 50 MG Tab PO SCH (09:15)
[2020-02-28] MEDS: Cyclobenzaprine 10 MG Tab PO SCH ×3 (09:15→21:18)
[2020-02-28] MEDS: busPIRone 15 MG Tab PO SCH ×2 (09:16→21:19)
[2020-02-28] MEDS: guaiFENesin 600 MG Tab.ER PO SCH ×2 (09:16→21:19)
[2020-02-28] MEDS: Saccharomyces Boulardii (Probiotic) 250 MG Cap PO SCH ×2 (09:16→21:19)
[2020-02-28] MEDS: Hydrochlorothiazide 12.5 MG Cap PO SCH (09:16)
[2020-02-28] MEDS: Baclofen 10 MG Tab PO SCH ×4 (09:16→21:20)
[2020-02-28] MEDS: oxyCODONE 5 MG Tab PO PRN ×2 (09:16→16:49)
[2020-02-28] MEDS: Enoxaparin 40 MG/0.4 ML Syringe SUBCUT SCH (09:17)
[2020-02-28] MEDS: Polyethylene Glycol 3350 Powder 17 GM Packet PO SCH (09:24)
[2020-02-28] MEDS ORDERED: Vancomycin 1 GM, Vancomycin 250 MG in Sodium Chloride 0.9% 250 ML IV SCH (11:00)
[2020-02-28] MEDS ORDERED: Magnesium Sulfate/Water 2 GM/50 ML BAG IV ONE (12:32)
[2020-02-28] MEDS: Simvastatin 20 MG Tab PO SCH (21:17)
[2020-02-28] MEDS: traZODone 50 MG Tab PO SCH (21:18)
[2020-02-28] MEDS: Sertraline 50 MG Tab PO SCH (21:19)
[2020-02-28] MEDS: Vancomycin 1 GM, Vancomycin 250 MG in Sodium Chloride 0.9% 250 ML IV SCH (23:09)
[2020-02-29] MEDS: oxyCODONE 5 MG Tab PO PRN ×4 (00:27→14:45)
[2020-02-29] MEDS: LORazepam 1 MG Tab PO SCH ×4 (06:28→18:29)
[2020-02-29] MEDS: Cefepime 2 GM in Premix Bag 1 BAG IV SCH ×3 (06:29→22:26)
--- NOTE | 2020-02-29 07:38 | PCM.PN ---
- General Info Date of Service: 02/29/20 Admission Dx/Problem (Free Text): Admission Diagnosis/Problem Admission Diagnosis/Problem Pneumonia Subjective Update: In to see David. He is sitting up in bed eating pancakes. He reports he feels pretty good. Magnesium was low and is being supplemented. Will discontinue IV fluids today. No nursing or patient concerns. Will need to remain hospitalized until completing treatment for healthcare acquired versus aspiration pneumonia. Hopeful for discharge on 03/03/20 back to SNF. Functional Status: Reports: Pain Controlled, Tolerating Diet, Urinating. Denies: Ambulating (baseline ), New Symptoms - Review of Systems General: Reports: No Symptoms. Denies: Fever, Chills HEENT: Reports: No Symptoms. Denies: Headaches Pulmonary: Reports: No Symptoms. Denies: Shortness of Breath, Cough, Sputum, Wheezing Cardiovascular: Reports: No Symptoms. Denies: Chest Pain, Palpitations Gastrointestinal: Reports: No Symptoms. Denies: Abdominal Pain, Constipation, Diarrhea, Nausea, Vomiting Genitourinary: Reports: No Symptoms. Denies: Pain Musculoskeletal: Reports: Neck Pain (chronic ) Skin: Reports: No Symptoms. 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 Denies: Confusion Psychiatric: Reports: No Symptoms - Patient Data Vitals - Most Recent: Last Vital Signs Temp 97.2 F 02/29/20 04:31 Pulse 49 L 02/29/20 04:31 Resp 16 02/29/20 04:31 BP 114/57 L 02/29/20 04:31 Pulse Ox 95 02/29/20 04:31 Weight - Most Recent: 158 lb I&O - Last 24 Hours: Intake & Output 02/28/20 02/29/20 02/29/20 22:59 06:59 14:59 Intake Total 830 720 Output Total 1400 Balance 830 -680 Lab Results Last 24 Hours: Laboratory Results - last 24 hr 02/28/20 02/28/20 02/29/20 Range/Units 10:45 10:45 06:10 WBC 5.28 3.88 L (4.23-9.07) K/mm3 RBC 4.30 L 4.03 L (4.63-6.08) M/mm3 Hgb 11.9 L 11.3 L (13.7-17.5) gm/dl Hct 38.2 L 35.8 L (40.1-51.0) % MCV 88.8 88.8 (79.0-92.2) fl MCH 27.7 28.0 (25.7-32.2) pg MCHC 31.2 L 31.6 L (32.2-35.5) g/dl RDW Std Deviation 44.1 H 43.4 (35.1-43.9) fL Plt Count 201 192 (163-337) K/mm3 MPV 11.1 10.9 (9.4-12.3) fl Neut % (Auto) 68.1 H 51.2 (34.0-67.9) % Lymph % (Auto) 20.3 L 30.7 (21.8-53.1) % Wilcox % (Auto) 7.6 11.1 (5.3-12.2) % Eos % (Auto) 3.6 6.4 (0.8-7.0) Baso % (Auto) 0.4 0.3 (0.1-1.2) % Neut # (Auto) 3.60 1.99 (1.78-5.38) K/mm3 Lymph # (Auto) 1.07 L 1.19 L (1.32-3.57) K/mm3 Wilcox # (Auto) 0.40 0.43 (0.30-0.82) K/mm3 Eos # (Auto) 0.19 0.25 (0.04-0.54) K/mm3 Baso # (Auto) 0.02 0.01 (0.01-0.08) K/mm3 Manual Slide Review Not Reportable Sodium 143 (136-145) mEq/L Potassium 3.9 (3.5-5.1) mEq/L Chloride 105 (98-107) mEq/L Carbon Dioxide 29 (21-32) mEq/L Anion Gap 12.9 (5-15) BUN 8 (7-18) mg/dL Creatinine 0.5 L (0.7-1.3) mg/dL Est Cr Clr Drug Dosing 156.56 mL/min Estimated GFR (MDRD) > 60 (>60) mL/min BUN/Creatinine Ratio 16.0 (14-18) Glucose 111 (80-115) mg/dL Calcium 8.6 (8.5-10.1) mg/dL Magnesium 1.8 (1.8-2.4) mg/dl Total Bilirubin 0.5 (0.2-1.0) mg/dL AST 16 (15-37) U/L ALT < 6 L (16-63) U/L Alkaline Phosphatase 61 (46-116) U/L C-Reactive Protein 7.5 H* (<1.0) mg/dL Total Protein 6.3 L (6.4-8.2) g/dl Albumin 2.5 L (3.4-5.0) g/dl Globulin 3.8 gm/dL Albumin/Globulin Ratio 0.7 L (1-2) 02/29/20 Range/Units 06:10 WBC (4.23-9.07) K/mm3 RBC (4.63-6.08) M/mm3 Hgb (13.7-17.5) gm/dl Hct (40.1-51.0) % MCV (79.0-92.2) fl MCH (25.7-32.2) pg MCHC (32.2-35.5) g/dl RDW Std Deviation (35.1-43.9) fL Plt Count (163-337) K/mm3 MPV (9.4-12.3) fl Neut % (Auto) (34.0-67.9) % Lymph % (Auto) (21.8-53.1) % Wilcox % (Auto) (5.3-12.2) % Eos % (Auto) (0.8-7.0) Baso % (Auto) (0.1-1.2) % Neut # (Auto) (1.78-5.38) K/mm3 Lymph # (Auto) (1.32-3.57) K/mm3 Wilcox # (Auto) (0.30-0.82) K/mm3 Eos # (Auto) (0.04-0.54) K/mm3 Baso # (Auto) (0.01-0.08) K/mm3 Manual Slide Review Sodium 146 H (136-145) mEq/L Potassium 3.8 (3.5-5.1) mEq/L Chloride 107 (98-107) mEq/L Carbon Dioxide 30 (21-32) mEq/L Anion Gap 12.8 (5-15) BUN 7 (7-18) mg/dL Creatinine 0.6 L (0.7-1.3) mg/dL Est Cr Clr Drug Dosing 129.40 mL/min Estimated GFR (MDRD) > 60 (>60) mL/min BUN/Creatinine Ratio 11.7 L (14-18) Glucose 72 L (80-115) mg/dL Calcium 8.4 L (8.5-10.1) mg/dL Magnesium 1.9 (1.8-2.4) mg/dl Total Bilirubin (0.2-1.0) mg/dL AST (15-37) U/L ALT (16-63) U/L Alkaline Phosphatase (46-116) U/L C-Reactive Protein 6.3 H* (<1.0) mg/dL Total Protein (6.4-8.2) g/dl Albumin (3.4-5.0) g/dl Globulin gm/dL Albumin/Globulin Ratio (1-2) Rommel Results Last 24 Hours: Microbiology 02/25/20 13:45 Aerobic Blood Culture - Preliminary Blood - Venous - Lab Draw NO GROWTH AFTER 3 DAYS Anaerobic Blood Culture - Preliminary NO GROWTH AFTER 3 DAYS 02/25/20 13:35 Aerobic Blood Culture - Preliminary Blood - Venous NO GROWTH AFTER 3 DAYS Anaerobic Blood Culture - Preliminary NO GROWTH AFTER 3 DAYS Med Orders - Current: Current Medications Acetaminophen (Tylenol) 650 mg PO Q6H PRN PRN Reason: Pain Baclofen (Lioresal) 10 mg PO QID [facility] Last Admin: 02/28/20 21:20 Dose: 10 mg Documented by: Benzonatate (Tessalon Perles) 100 mg PO TID PRN PRN Reason: Cough Buspirone HCl (Buspar) 15 mg PO BID [facility] Last Admin: 02/28/20 21:19 Dose: 15 mg Documented by: Carbidopa/Levodopa (Sinemet 25-100 Mg) 1 tab PO QID [facility] Last Admin: 02/28/20 21:21 Dose: 1 tab Documented by: Celecoxib (Celebrex) 200 mg PO DAILY [facility] Last Admin: 02/28/20 09:11 Dose: 200 mg Documented by: Cyclobenzaprine HCl (Flexeril) 5 mg PO TID [facility] Last Admin: 02/28/20 21:18 Dose: 5 mg Documented by: Enoxaparin Sodium (Lovenox) 40 mg SUBCUT DAILY [facility] Last Admin: 02/28/20 09:17 Dose: 40 mg Documented by: Fentanyl (Duragesic) 100 mcg TRDERM Q72H [facility] Last Admin: 02/26/20 17:34 Dose: 100 mcg Documented by: Gabapentin (Neurontin) 200 mg PO TID [facility] Last Admin: 02/28/20 21:17 Dose: 200 mg Documented by: Guaifenesin (Robitussin) 400 mg PO Q4H PRN PRN Reason: Cough Guaifenesin (Mucinex) 600 mg PO BID [facility] Last Admin: 02/28/20 21:19 Dose: 600 mg Documented by: Hydrochlorothiazide (Hydrochlorothiazide) 12.5 mg PO DAILY [facility] Last Admin: 02/28/20 09:16 Dose: 12.5 mg Documented by: Hydromorphone HCl (Dilaudid) 2 mg PO Q6H PRN PRN Reason: Pain Last Admin: 02/27/20 18:09 Dose: 2 mg Documented by: Cefepime HCl 2 gm/ Premix 50 mls @ 100 mls/hr IV Q8H [facility] Last Admin: 02/29/20 06:29 Dose: 100 mls/hr Documented by: Sodium Chloride (Normal Saline) 1,000 mls @ 25 mls/hr IV ASDIRECTED [facility] Last Admin: 02/27/20 21:33 Dose: 25 mls/hr Documented by: Vancomycin HCl 1 gm/Vancomycin HCl 250 mg/ Sodium Chloride 250 mls @ 250 mls/hr IV Q12H [facility] Last Admin: 02/28/20 23:09 Dose: 250 mls/hr Documented by: Lactulose (Cephulac) 20 gm PO DAILY PRN PRN Reason: Constipation Lorazepam (Ativan) 1 mg PO BID@1200,1600 [facility] Last Admin: 02/28/20 16:06 Dose: 1 mg Documented by: Lorazepam (Ativan) 1 mg PO BID@0700,1900 [facility] Last Admin: 02/29/20 06:28 Dose: 1 mg Documented by: Losartan Potassium (Cozaar) 50 mg PO DAILY [facility] Last Admin: 02/28/20 09:15 Dose: 50 mg Documented by: Magnesium Oxide (Magnesium Oxide) 400 mg PO BID [facility] Last Admin: 02/28/20 21:19 Dose: 400 mg Documented by: Miscellaneous Information (Remove Patch) 1 ea TRDERM Q72H [facility] Last Admin: 02/26/20 17:39 Dose: Not Given Documented by: Ondansetron HCl (Zofran Odt) 4 mg PO Q6H PRN PRN Reason: nausea, able to take PO Oxycodone HCl (Oxycodone) 5 mg PO Q4H PRN PRN Reason: Pain (moderate 4-6) Last Admin: 02/29/20 04:43 Dose: 5 mg Documented by: Polyethylene Glycol (Miralax) 17 gm PO DAILY [facility] Last Admin: 02/28/20 09:24 Dose: 17 gm Documented by: Saccharomyces Boulardii (Florastor) 500 mg PO BID [facility] Last Admin: 02/28/20 21:19 Dose: 500 mg Documented by: Senna/Docusate Sodium (Senna Plus) 1 tab PO DAILY [facility] Last Admin: 02/28/20 09:15 Dose: 1 tab Documented by: Senna/Docusate Sodium (Senna Plus) 1 tab PO TID PRN PRN Reason: Constipation Sertraline HCl (Zoloft) 50 mg PO BEDTIME [facility] Last Admin: 02/28/20 21:19 Dose: 50 mg Documented by: Simvastatin (Zocor) 20 mg PO BEDTIME [facility] Last Admin: 02/28/20 21:17 Dose: 20 mg Documented by: Sodium Chloride (Saline Flush) 10 ml FLUSH ASDIRECTED PRN PRN Reason: Keep Vein Open Last Admin: 02/25/20 14:17 Dose: 10 ml Documented by: Terazosin HCl (Hytrin) 5 mg PO BID [facility] Last Admin: 02/28/20 21:24 Dose: 5 mg Documented by: Trazodone HCl (Trazodone) 150 mg PO BEDTIME [facility] Last Admin: 02/28/20 21:18 Dose: 150 mg Documented by: Trolamine Salicylate (Aspercreme 10%) 0 gm TOP Q4H PRN PRN Reason: Pain (mild 1-3) Vancomycin HCl (Pharmacy To Dose - Vancomycin) 1 dose .XX ASDIRECTED PRN PRN Reason: RX TO DOSE VANCO Discontinued Medications Fentanyl (Duragesic) 100 mcg TRDERM Q72H [facility] Hydromorphone HCl (Dilaudid) 2 mg PO Q6H [facility] Last Admin: 02/26/20 08:52 Dose: 2 mg Documented by: Sodium Chloride (Normal Saline) 1,000 mls @ 100 mls/hr IV BOLUS ONE Stop: 02/25/20 23:05 Last Admin: 02/25/20 21:13 Dose: Not Given Documented by: Sodium Chloride (Normal Saline) 1,000 mls @ 150 mls/hr IV NOW STA Stop: 02/25/20 21:19 Last Admin: 02/25/20 16:16 Dose: 150 mls/hr Documented by: Sodium Chloride (Normal Saline) 100 mls @ 75 mls/hr IV ASDIRECTED [facility] Last Admin: 02/25/20 15:22 Dose: 75 mls/hr Documented by: Ceftriaxone Sodium 1 gm/ (Sodium Chloride) 100 mls @ 200 mls/hr IV ONETIME ONE Stop: 02/25/20 16:17 Last Admin: 02/25/20 21:13 Dose: Not Given Documented by: Levofloxacin/Dextrose 750 mg/ (Premix) 150 mls @ 100 mls/hr IV ONETIME ONE Stop: 02/25/20 17:22 Last Admin: 02/25/20 16:18 Dose: 100 mls/hr Documented by: Sodium Chloride (Normal Saline) 1,000 mls @ 100 mls/hr IV ASDIRECTED [facility] Last Admin: 02/27/20 09:08 Dose: 100 mls/hr Documented by: Vancomycin HCl 1 gm/ Sodium (Chloride) 250 mls @ 250 mls/hr IV Q12H [facility] Last Admin: 02/27/20 12:01 Dose: 250 mls/hr Documented by: Vancomycin HCl 1.25 gm/ Sodium (Chloride) 250 mls @ 250 mls/hr IV Q12H [facility] Stop: 02/28/20 13:00 Last Admin: 02/28/20 11:49 Dose: 250 mls/hr Documented by: Vancomycin HCl 1 gm/Vancomycin HCl 250 mg/ Sodium Chloride 250 mls @ 250 mls/hr IV Q12H [facility] Last Admin: 02/28/20 14:38 Dose: Not Given Documented by: Magnesium Sulfate (Magnesium Sulfate In Water Premix) 2 gm in 50 mls @ 25 mls/hr IV ONETIME ONE Stop: 02/28/20 14:31 Last Admin: 02/28/20 16:22 Dose: 25 mls/hr Documented by: Iopamidol (Isovue-370 (76%)) 100 ml IVPUSH ONETIME ONE Stop: 02/25/20 14:44 Last Admin: 02/25/20 15:22 Dose: 100 ml Documented by: Miscellaneous Information (Remove Patch) 1 ea TRDERM Q72H [facility] 0 each .XX ONETIME ONE Stop: 02/27/20 10:01 Last Admin: 02/27/20 13:30 Dose: Not Given Documented by: Sodium Chloride (Saline Flush) 10 ml FLUSH ONETIME PRN PRN Reason: IV FLUSH Last Admin: 02/25/20 15:22 Dose: 10 ml Documented by: - Exam Quality Assessment: Supplemental Oxygen (0.5L), DVT Prophylaxis General: Alert, Oriented, Cooperative, No Acute Distress HEENT: Pupils Equal, Pupils Reactive, Mucous Membr. Moist/[place] Neck: Supple, Trachea Midline Lungs: Normal Respiratory Effort, Decreased Breath Sounds Cardiovascular: Regular Rate, Regular Rhythm GI/Abdominal Exam: Normal Bowel Sounds, Soft, Non-Tender, No Distention (Male) Exam: Deferred Extremities: Non-Tender, No Pedal Edema, Limited Range of Motion (underlying progressive supranuclear palsy - contractures to all extremities ) Skin: Warm, Dry, Intact Neurological: No New Focal Deficit Psy/Mental Status: Alert Sepsis Event Note - Evaluation Sepsis Screening Result: No Definite Risk - Focused Exam Vital Signs: Vital Signs Temp Pulse Resp BP Pulse Ox Pulse Ox 02/29/20 04:31 97.2 F 49 L 16 114/57 L 95 02/28/20 23:06 97.9 F 54 L 101/57 L 91 L 02/28/20 21:24 112/73 02/28/20 20:47 94 L - Problem List & Annotations (1) Healthcare-associated pneumonia SNOMED Code(s): 720656548, 479499082 Code(s): J18.9 - PNEUMONIA, UNSPECIFIED ORGANISM Status: Acute Priority: High Current Visit: Yes (2) Hypoxemia SNOMED Code(s): 831362560 Code(s): R09.02 - HYPOXEMIA Status: Acute Priority: High Current Visit: Yes (3) Leukocytosis SNOMED Code(s): 984178247, 998504889 Code(s): D72.829 - ELEVATED WHITE BLOOD CELL COUNT, UNSPECIFIED Status: Acute Priority: High Current Visit: Yes Qualifiers: Leukocytosis type: unspecified Qualified Code(s): D72.829 - Elevated white blood cell count, unspecified (4) Acute respiratory acidosis SNOMED Code(s): 84097248 Code(s): E87.2 - ACIDOSIS Status: Acute Current Visit: No (5) Benign prostate hyperplasia SNOMED Code(s): 130846312 Code(s): N40.0 - BENIGN PROSTATIC HYPERPLASIA WITHOUT LOWER URINRY TRACT SYMP Status: Chronic Priority: Low Current Visit: No Qualifiers: Lower urinary tract symptom presence: unspecified whether lower urinary tract symptoms present Qualified Code(s): N40.0 - Benign prostatic hyperplasia without lower urinary tract symptoms (6) Detection of methicillin resistant Staphylococcus aureus (MRSA) DNA SNOMED Code(s): 112804302 Code(s): R89.9 - UNSP ABNORMAL FINDING IN SPECIMENS FROM OT ORG/TISS Status: Chronic Priority: Low Current Visit: No (7) Dyslipidemia SNOMED Code(s): 052544765 Code(s): E78.5 - HYPERLIPIDEMIA, UNSPECIFIED Status: Chronic Priority: Low Current Visit: No (8) GERD (gastroesophageal reflux disease) SNOMED Code(s): 254697427 Code(s): K21.9 - GASTRO-ESOPHAGEAL REFLUX DISEASE WITHOUT ESOPHAGITIS Status: Chronic Priority: Low Current Visit: No Qualifiers: Esophagitis presence: esophagitis presence not specified Qualified Code(s): K21.9 - Gastro-esophageal reflux disease without esophagitis (9) Hypertension SNOMED Code(s): 06710452 Code(s): I10 - ESSENTIAL (PRIMARY) HYPERTENSION Status: Chronic Priority: Low Current Visit: No Qualifiers: Hypertension type: unspecified Qualified Code(s): I10 - Essential (primary) hypertension (10) Hypoalbuminemia SNOMED Code(s): 127777103 Code(s): E88.09 - [facility] DISORDERS OF PLASMA-PROTEIN METABOLISM, NEC Status: Chronic Priority: Low Current Visit: No (11) Anxiety SNOMED Code(s): 03402189 Code(s): F41.9 - ANXIETY DISORDER, UNSPECIFIED Status: Chronic Priority: Medium Current Visit: No (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 SNOMED Code(s): 87403937 Code(s): G23.1 - PROGRESSIVE SUPRANUCLEAR OPHTHALMOPLEGIA Status: Chronic Priority: Medium Current Visit: No (13) Swallowing impairment SNOMED Code(s): 370346254 Code(s): R13.10 - DYSPHAGIA, UNSPECIFIED Status: Chronic Priority: Medium Current Visit: No (14) Wheelchair bound SNOMED Code(s): 243335067, 439433016 Code(s): Z99.3 - DEPENDENCE ON WHEELCHAIR Status: Chronic Priority: Medium Current Visit: No (15) intermediate resident SNOMED Code(s): 709627971 Code(s): Z59.3 - PROBLEMS RELATED TO LIVING IN RESIDENTIAL INSTITUTION Status: Chronic Priority: Low Current Visit: No - Problem List Review Problem List Initiated/Reviewed/Updated: Yes - My Orders Last 24 Hours: My Active Orders 02/28/20 10:02 Consult to Case Management/Computer Repair Engineer [CONS] Routine Consult to Veneer Repairer Machine [CONS] Routine 02/28/20 12:08 Precautions [COMM] Routine 02/28/20 Dinner Mechanical Soft Diet [DIET] 03/01/20 05:11 BASIC METABOLIC PANEL,BMP [CHEM] AM CBC WITH AUTO DIFF [HEME] AM CRP [C-REACTIVE PROTEIN] [CHEM] AM MAGNESIUM [CHEM] AM 03/02/20 05:11 BASIC METABOLIC PANEL,BMP [CHEM] AM CBC WITH AUTO DIFF [HEME] AM CRP [C-REACTIVE PROTEIN] [CHEM] AM MAGNESIUM [CHEM] AM 03/03/20 05:11 BASIC METABOLIC PANEL,BMP [CHEM] AM CBC WITH AUTO DIFF [HEME] AM CRP [C-REACTIVE PROTEIN] [CHEM] AM MAGNESIUM [CHEM] AM - Plan Plan:: Assessment: Acute: 64-year-old male with history of recurrent pneumonia, UTI, and recent hospitalization returns with hypoxemia and hypercapnia. Healthcare associated pneumonia Small bilateral pleural effusions that appear to be chronic intermediate resident * Although CT scan does not show specific area of pneumonia just possible area of pneumonia he does have multiple criteria for pneumonia * White count is elevated at 12-->5.28-->3.88 * C-reactive protein 9.1-->7.5-->6.3 * Normal lactic acid * Given Levaquin 750 mg IV in emergency department * Started on cefepime and vancomycin on floor * Not on oxygen at SNF Recent discharge from hospital secondary to pneumonia and Pseudomonas UTI * Pseudomonas was resistant to fluoroquinolones Leukocytosis * Likely secondary to underlying infection * Now resolved Elevated D-Dimer * CTA negative for PE Small left Sided Pleural Effusion * CT scan finding * IS as directed Old Left Sided-Rib Fractures with one rib fracture showing no definite bridging callus * Chest CT scan report finding Hypomagnesemia * Mg of 1.7-->1.8-->1.9 * Will replete and monitor Hypoalbuminemia * Albumin of 3.0-->2.5 * Veneer Repairer Machine consult Elevated CRP level * Likely from underlying pneumonia * Continue IV antibiotics: vancomycin and cefepime 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 Hopeful for discharge on 03/03/20 back to SNF pending continued improvement
[2020-02-29] MEDS ORDERED: Magnesium Sulfate/Water 2 GM/50 ML BAG IV ONE (07:59)
[2020-02-29] MEDS: busPIRone 15 MG Tab PO SCH ×2 (09:03→20:48)
[2020-02-29] MEDS: Baclofen 10 MG Tab PO SCH ×4 (09:03→20:47)
[2020-02-29] MEDS: Terazosin 5 MG Cap PO SCH ×2 (09:03→20:46)
[2020-02-29] MEDS: Enoxaparin 40 MG/0.4 ML Syringe SUBCUT SCH (09:03)
[2020-02-29] MEDS: Saccharomyces Boulardii (Probiotic) 250 MG Cap PO SCH ×2 (09:03→20:48)
[2020-02-29] MEDS: Losartan 50 MG Tab PO SCH (09:04)
[2020-02-29] MEDS: Gabapentin 100 MG Cap PO SCH ×3 (09:04→20:44)
[2020-02-29] MEDS: Carbidopa/Levodopa 25-100 MG Tab PO SCH ×4 (09:04→20:48)
[2020-02-29] MEDS: guaiFENesin 600 MG Tab.ER PO SCH ×2 (09:04→20:48)
[2020-02-29] MEDS: Cyclobenzaprine 10 MG Tab PO SCH ×3 (09:04→20:45)
[2020-02-29] MEDS: Hydrochlorothiazide 12.5 MG Cap PO SCH (09:05)
[2020-02-29] MEDS: Magnesium Oxide 400 MG Tab PO SCH ×2 (09:05→20:47)
[2020-02-29] MEDS: Polyethylene Glycol 3350 Powder 17 GM Packet PO SCH (09:05)
[2020-02-29] MEDS: Celecoxib 100 MG Cap PO SCH (09:05)
[2020-02-29] MEDS: Vancomycin 1 GM, Vancomycin 250 MG in Sodium Chloride 0.9% 250 ML IV SCH (11:07)
[2020-02-29] MEDS: fentaNYL 100 MCG/HR Transdermal Patch TRDERM SCH (16:48)
[2020-02-29] MEDS: REMOVE FENTANYL TRDERM SCH (16:49)
[2020-02-29] MEDS: Acetaminophen 325 MG Tab PO PRN (20:47)
[2020-02-29] MEDS: Simvastatin 20 MG Tab PO SCH (20:47)
[2020-02-29] MEDS: traZODone 50 MG Tab PO SCH (20:47)
[2020-02-29] MEDS: Sertraline 50 MG Tab PO SCH (20:48)
[2020-02-29] MEDS: Vancomycin 1 GM, Vancomycin 500 MG in Sodium Chloride 0.9% 500 ML IV SCH (23:02)
[2020-03-01] MEDS: Cefepime 2 GM in Premix Bag 1 BAG IV SCH ×3 (06:22→21:55)
[2020-03-01] MEDS: LORazepam 1 MG Tab PO SCH ×4 (06:22→18:40)
--- NOTE | 2020-03-01 07:17 | PCM.PN ---
- General Info Date of Service: 03/01/20 Admission Dx/Problem (Free Text): Admission Diagnosis/Problem Admission Diagnosis/Problem Pneumonia Subjective Update: In to see David. Nursing is giving the patient a bed bath. He reports he feels good. He is weaned off of oxygen today. Continue current treatment plan with IV antibiotics. Discharge plan for Friday back to SNF. Functional Status: Reports: Pain Controlled, Tolerating Diet, Urinating, Incentive Spirometry. Denies: Ambulating, New Symptoms - Review of Systems General: Reports: No Symptoms. Denies: Fever, Weakness, Fatigue, Malaise, [place] HEENT: Reports: No Symptoms. Denies: Headaches, Sore Throat Pulmonary: Reports: No Symptoms. Denies: Shortness of Breath, Cough, Sputum, Wheezing Cardiovascular: Reports: No Symptoms. Denies: Chest Pain, Palpitations, Dyspnea on Exertion, Edema Gastrointestinal: Reports: Constipation. Denies: Abdominal Pain, Diarrhea, Nausea, Vomiting Genitourinary: Reports: No Symptoms. Denies: Pain Musculoskeletal: Reports: Neck Pain (Baseline left-sided) Skin: Reports: No Symptoms. 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 Denies: Confusion, Dizziness, Headache, Numbness, Seizure Psychiatric: Reports: No Symptoms - Patient Data Vitals - Most Recent: Last Vital Signs Temp 97.5 F 03/01/20 03:16 Pulse 48 L 03/01/20 03:16 Resp 16 03/01/20 03:16 BP 102/59 L 03/01/20 03:16 Pulse Ox 94 L 03/01/20 03:16 Weight - Most Recent: 158 lb I&O - Last 24 Hours: Intake & Output 02/29/20 03/01/20 03/01/20 22:59 06:59 14:59 Intake Total 805 675 Output Total 525 1150 Balance 280 -475 Lab Results Last 24 Hours: Laboratory Results - last 24 hr 02/29/20 02/29/20 03/01/20 Range/Units 06:10 10:00 06:15 WBC 3.29 L (4.23-9.07) K/mm3 RBC 4.36 L (4.63-6.08) M/mm3 Hgb 12.0 L (13.7-17.5) gm/dl Hct 38.6 L (40.1-51.0) % MCV 88.5 (79.0-92.2) fl MCH 27.5 (25.7-32.2) pg MCHC 31.1 L (32.2-35.5) g/dl RDW Std Deviation 43.2 (35.1-43.9) fL Plt Count 203 (163-337) K/mm3 MPV 10.7 (9.4-12.3) fl Neut % (Auto) 40.1 (34.0-67.9) % Lymph % (Auto) 42.6 (21.8-53.1) % [place] % (Auto) 10.0 (5.3-12.2) % Eos % (Auto) 6.4 (0.8-7.0) Baso % (Auto) 0.6 (0.1-1.2) % Neut # (Auto) 1.32 L (1.78-5.38) K/mm3 Lymph # (Auto) 1.40 (1.32-3.57) K/mm3 [place] # (Auto) 0.33 (0.30-0.82) K/mm3 Eos # (Auto) 0.21 (0.04-0.54) K/mm3 Baso # (Auto) 0.02 (0.01-0.08) K/mm3 Sodium 146 H (136-145) mEq/L Potassium 3.8 (3.5-5.1) mEq/L Chloride 107 (98-107) mEq/L Carbon Dioxide 30 (21-32) mEq/L Anion Gap 12.8 (5-15) BUN 7 (7-18) mg/dL Creatinine 0.6 L (0.7-1.3) mg/dL Est Cr Clr Drug Dosing 129.40 mL/min Estimated GFR (MDRD) > 60 (>60) mL/min BUN/Creatinine Ratio 11.7 L (14-18) Glucose 72 L (80-115) mg/dL Calcium 8.4 L (8.5-10.1) mg/dL Magnesium 1.9 (1.8-2.4) mg/dl C-Reactive Protein 6.3 H* (<1.0) mg/dL Vancomycin Trough 12.9 (10.0-20.0) 03/01/20 Range/Units 06:15 WBC (4.23-9.07) K/mm3 RBC (4.63-6.08) M/mm3 Hgb (13.7-17.5) gm/dl Hct (40.1-51.0) % MCV (79.0-92.2) fl MCH (25.7-32.2) pg MCHC (32.2-35.5) g/dl RDW Std Deviation (35.1-43.9) fL Plt Count (163-337) K/mm3 MPV (9.4-12.3) fl Neut % (Auto) (34.0-67.9) % Lymph % (Auto) (21.8-53.1) % [place] % (Auto) (5.3-12.2) % Eos % (Auto) (0.8-7.0) Baso % (Auto) (0.1-1.2) % Neut # (Auto) (1.78-5.38) K/mm3 Lymph # (Auto) (1.32-3.57) K/mm3 [place] # (Auto) (0.30-0.82) K/mm3 Eos # (Auto) (0.04-0.54) K/mm3 Baso # (Auto) (0.01-0.08) K/mm3 Sodium 146 H (136-145) mEq/L Potassium 4.0 (3.5-5.1) mEq/L Chloride 107 (98-107) mEq/L Carbon Dioxide 31 (21-32) mEq/L Anion Gap 12.0 (5-15) BUN 10 (7-18) mg/dL Creatinine 0.6 L (0.7-1.3) mg/dL Est Cr Clr Drug Dosing 129.40 mL/min Estimated GFR (MDRD) > 60 (>60) mL/min BUN/Creatinine Ratio 16.7 (14-18) Glucose 74 L (80-115) mg/dL Calcium 8.4 L (8.5-10.1) mg/dL Magnesium 1.9 (1.8-2.4) mg/dl C-Reactive Protein 4.0 H* (<1.0) mg/dL Vancomycin Trough (10.0-20.0) Rommel Results Last 24 Hours: Microbiology 02/25/20 13:45 Aerobic Blood Culture - Preliminary Blood - Venous - Lab Draw NO GROWTH AFTER 4 DAYS Anaerobic Blood Culture - Preliminary NO GROWTH AFTER 4 DAYS 02/25/20 13:35 Aerobic Blood Culture - Preliminary Blood - Venous NO GROWTH AFTER 4 DAYS Anaerobic Blood Culture - Preliminary NO GROWTH AFTER 4 DAYS Med Orders - Current: Current Medications Acetaminophen (Tylenol) 650 mg PO Q6H PRN PRN Reason: Pain Last Admin: 02/29/20 20:47 Dose: 650 mg Documented by: Baclofen (Lioresal) 10 mg PO QID PENDING SALE TO [facility] Last Admin: 02/29/20 20:47 Dose: 10 mg Documented by: Benzonatate (Tessalon Perles) 100 mg PO TID PRN PRN Reason: Cough Buspirone HCl (Buspar) 15 mg PO BID PENDING SALE TO [facility] Last Admin: 02/29/20 20:48 Dose: 15 mg Documented by: Carbidopa/Levodopa (Sinemet 25-100 Mg) 1 tab PO QID PENDING SALE TO [facility] Last Admin: 02/29/20 20:48 Dose: 1 tab Documented by: Celecoxib (Celebrex) 200 mg PO DAILY PENDING SALE TO [facility] Last Admin: 02/29/20 09:05 Dose: 200 mg Documented by: Cyclobenzaprine HCl (Flexeril) 5 mg PO TID PENDING SALE TO [facility] Last Admin: 02/29/20 20:45 Dose: 5 mg Documented by: Enoxaparin Sodium (Lovenox) 40 mg SUBCUT DAILY PENDING SALE TO [facility] Last Admin: 02/29/20 09:03 Dose: 40 mg Documented by: Fentanyl (Duragesic) 100 mcg TRDERM Q72H PENDING SALE TO [facility] Last Admin: 02/29/20 16:48 Dose: 100 mcg Documented by: Gabapentin (Neurontin) 200 mg PO TID PENDING SALE TO [facility] Last Admin: 02/29/20 20:44 Dose: 200 mg Documented by: Guaifenesin (Robitussin) 400 mg PO Q4H PRN PRN Reason: Cough Guaifenesin (Mucinex) 600 mg PO BID PENDING SALE TO [facility] Last Admin: 02/29/20 20:48 Dose: 600 mg Documented by: Hydrochlorothiazide (Hydrochlorothiazide) 12.5 mg PO DAILY PENDING SALE TO [facility] Last Admin: 02/29/20 09:05 Dose: 12.5 mg Documented by: Hydromorphone HCl (Dilaudid) 2 mg PO Q6H PRN PRN Reason: Pain Last Admin: 02/27/20 18:09 Dose: 2 mg Documented by: Cefepime HCl 2 gm/ Premix 50 mls @ 100 mls/hr IV Q8H PENDING SALE TO [facility] Last Admin: 03/01/20 06:22 Dose: 100 mls/hr Documented by: Vancomycin HCl 1 gm/Vancomycin HCl 500 mg/ Sodium Chloride 500 mls @ 250 mls/hr IV Q12H PENDING SALE TO [facility] Last Admin: 02/29/20 23:02 Dose: 250 mls/hr Documented by: Lactulose (Cephulac) 20 gm PO DAILY PRN PRN Reason: Constipation Lorazepam (Ativan) 1 mg PO BID@1200,1600 PENDING SALE TO [facility] Last Admin: 02/29/20 16:46 Dose: 1 mg Documented by: Lorazepam (Ativan) 1 mg PO BID@0700,1900 PENDING SALE TO [facility] Last Admin: 03/01/20 06:22 Dose: 1 mg Documented by: Losartan Potassium (Cozaar) 50 mg PO DAILY PENDING SALE TO [facility] Last Admin: 02/29/20 09:04 Dose: 50 mg Documented by: Magnesium Oxide (Magnesium Oxide) 400 mg PO BID PENDING SALE TO [facility] Last Admin: 02/29/20 20:47 Dose: 400 mg Documented by: Miscellaneous Information (Remove Patch) 1 ea TRDERM Q72H PENDING SALE TO [facility] Last Admin: 02/29/20 16:49 Dose: 1 ea Documented by: Ondansetron HCl (Zofran Odt) 4 mg PO Q6H PRN PRN Reason: nausea, able to take PO Oxycodone HCl (Oxycodone) 5 mg PO Q4H PRN PRN Reason: Pain (moderate 4-6) Last Admin: 02/29/20 14:45 Dose: 5 mg Documented by: Polyethylene Glycol (Miralax) 17 gm PO DAILY PENDING SALE TO [facility] Last Admin: 02/29/20 09:05 Dose: 17 gm Documented by: Saccharomyces Boulardii (Florastor) 500 mg PO BID PENDING SALE TO [facility] Last Admin: 02/29/20 20:48 Dose: 500 mg Documented by: Senna/Docusate Sodium (Senna Plus) 1 tab PO DAILY PENDING SALE TO [facility] Last Admin: 02/29/20 09:04 Dose: 1 tab Documented by: Senna/Docusate Sodium (Senna Plus) 1 tab PO TID PRN PRN Reason: Constipation Sertraline HCl (Zoloft) 50 mg PO BEDTIME PENDING SALE TO [facility] Last Admin: 02/29/20 20:48 Dose: 50 mg Documented by: Simvastatin (Zocor) 20 mg PO BEDTIME PENDING SALE TO [facility] Last Admin: 02/29/20 20:47 Dose: 20 mg Documented by: Sodium Chloride (Saline Flush) 10 ml FLUSH ASDIRECTED PRN PRN Reason: Keep Vein Open Last Admin: 02/25/20 14:17 Dose: 10 ml Documented by: Terazosin HCl (Hytrin) 5 mg PO BID PENDING SALE TO [facility] Last Admin: 02/29/20 20:46 Dose: 5 mg Documented by: Trazodone HCl (Trazodone) 150 mg PO BEDTIME PENDING SALE TO [facility] Last Admin: 02/29/20 20:47 Dose: 150 mg Documented by: Trolamine Salicylate (Aspercreme 10%) 0 gm TOP Q4H PRN PRN Reason: Pain (mild 1-3) Vancomycin HCl (Pharmacy To Dose - Vancomycin) 1 dose .XX ASDIRECTED PRN PRN Reason: RX TO DOSE VANCO Discontinued Medications Fentanyl (Duragesic) 100 mcg TRDERM Q72H PENDING SALE TO [facility] Hydromorphone HCl (Dilaudid) 2 mg PO Q6H PENDING SALE TO [facility] Last Admin: 02/26/20 08:52 Dose: 2 mg Documented by: Sodium Chloride (Normal Saline) 1,000 mls @ 100 mls/hr IV BOLUS ONE Stop: 02/25/20 23:05 Last Admin: 02/25/20 21:13 Dose: Not Given Documented by: Sodium Chloride (Normal Saline) 1,000 mls @ 150 mls/hr IV NOW STA Stop: 02/25/20 21:19 Last Admin: 02/25/20 16:16 Dose: 150 mls/hr Documented by: Sodium Chloride (Normal Saline) 100 mls @ 75 mls/hr IV ASDIRECTED PENDING SALE TO [facility] Last Admin: 02/25/20 15:22 Dose: 75 mls/hr Documented by: Ceftriaxone Sodium 1 gm/ (Sodium Chloride) 100 mls @ 200 mls/hr IV ONETIME ONE Stop: 02/25/20 16:17 Last Admin: 02/25/20 21:13 Dose: Not Given Documented by: Levofloxacin/Dextrose 750 mg/ (Premix) 150 mls @ 100 mls/hr IV ONETIME ONE Stop: 02/25/20 17:22 Last Admin: 02/25/20 16:18 Dose: 100 mls/hr Documented by: Sodium Chloride (Normal Saline) 1,000 mls @ 100 mls/hr IV ASDIRECTED PENDING SALE TO [facility] Last Admin: 02/27/20 09:08 Dose: 100 mls/hr Documented by: Vancomycin HCl 1 gm/ Sodium (Chloride) 250 mls @ 250 mls/hr IV Q12H PENDING SALE TO [facility] Last Admin: 02/27/20 12:01 Dose: 250 mls/hr Documented by: Vancomycin HCl 1.25 gm/ Sodium (Chloride) 250 mls @ 250 mls/hr IV Q12H PENDING SALE TO [facility] Stop: 02/28/20 13:00 Last Admin: 02/28/20 11:49 Dose: 250 mls/hr Documented by: Sodium Chloride (Normal Saline) 1,000 mls @ 25 mls/hr IV ASDIRECTED PENDING SALE TO [facility] Last Admin: 02/27/20 21:33 Dose: 25 mls/hr Documented by: Vancomycin HCl 1 gm/Vancomycin HCl 250 mg/ Sodium Chloride 250 mls @ 250 mls/hr IV Q12H PENDING SALE TO [facility] Last Admin: 02/28/20 14:38 Dose: Not Given Documented by: Vancomycin HCl 1 gm/Vancomycin HCl 250 mg/ Sodium Chloride 250 mls @ 250 mls/hr IV Q12H PENDING SALE TO [facility] Stop: 02/29/20 13:00 Last Admin: 02/29/20 11:07 Dose: 250 mls/hr Documented by: Magnesium Sulfate (Magnesium Sulfate In Water Premix) 2 gm in 50 mls @ 25 mls/hr IV ONETIME ONE Stop: 02/28/20 14:31 Last Admin: 02/28/20 16:22 Dose: 25 mls/hr Documented by: Magnesium Sulfate (Magnesium Sulfate In Water Premix) 2 gm in 50 mls @ 25 mls/hr IV ONETIME ONE Stop: 02/29/20 09:58 Last Admin: 02/29/20 09:05 Dose: 25 mls/hr Documented by: Iopamidol (Isovue-370 (76%)) 100 ml IVPUSH ONETIME ONE Stop: 02/25/20 14:44 Last Admin: 02/25/20 15:22 Dose: 100 ml Documented by: Miscellaneous Information (Remove Patch) 1 ea TRDERM Q72H JASPER Vanco Trough 0 each .XX ONETIME ONE Stop: 02/27/20 10:01 Last Admin: 02/27/20 13:30 Dose: Not Given Documented by: Sodium Chloride (Saline Flush) 10 ml FLUSH ONETIME PRN PRN Reason: IV FLUSH Last Admin: 02/25/20 15:22 Dose: 10 ml Documented by: - Exam Quality Assessment: DVT Prophylaxis General: Alert, Oriented, Cooperative, No Acute Distress HEENT: Pupils Equal, Pupils Reactive, Mucous Membr. Moist/[place] Neck: Supple, Trachea Midline Lungs: Clear to Auscultation, Normal Respiratory Effort Cardiovascular: Regular Rate, Regular Rhythm GI/Abdominal Exam: Normal Bowel Sounds, Soft, Non-Tender, No Distention, No Abnormal Bruit (Male) Exam: Deferred Extremities: Non-Tender, No Pedal Edema, Normal Capillary Refill, Limited Range of Motion (Baseline secondary to contractures in all 4 extremities), Other (underlying progressive supranuclear palsy) Skin: Warm, Dry, Intact Neurological: No New Focal Deficit Psy/Mental Status: Alert Sepsis Event Note - Evaluation Sepsis Screening Result: No Definite Risk - Focused Exam Vital Signs: Vital Signs Temp Pulse Resp BP Pulse Ox 03/01/20 03:16 97.5 F 48 L 16 102/59 L 94 L 02/29/20 23:38 97.7 F 53 L 16 103/53 L 94 L 02/29/20 20:46 109/72 02/29/20 19:32 97.9 F 62 16 109/62 95 - Problem List & Annotations (1) Healthcare-associated pneumonia SNOMED Code(s): 298010484, 453722365 Code(s): J18.9 - PNEUMONIA, UNSPECIFIED ORGANISM Status: Acute Priority: High Current Visit: Yes (2) Hypoxemia SNOMED Code(s): 445751150 Code(s): R09.02 - HYPOXEMIA Status: Acute Priority: High Current Visit: Yes (3) Leukocytosis SNOMED Code(s): 135619766, 370478191 Code(s): D72.829 - ELEVATED WHITE BLOOD CELL COUNT, UNSPECIFIED Status: Acute Priority: High Current Visit: Yes Qualifiers: Leukocytosis type: unspecified Qualified Code(s): D72.829 - Elevated white blood cell count, unspecified (4) Acute respiratory acidosis SNOMED Code(s): 11122104 Code(s): E87.2 - ACIDOSIS Status: Acute Current Visit: No (5) Benign prostate hyperplasia SNOMED Code(s): 344501220 Code(s): N40.0 - BENIGN PROSTATIC HYPERPLASIA WITHOUT LOWER URINRY TRACT SYMP Status: Chronic Priority: Low Current Visit: No Qualifiers: Lower urinary tract symptom presence: unspecified whether lower urinary tract symptoms present Qualified Code(s): N40.0 - Benign prostatic hyperplasia witho ut lower urinary tract symptoms (6) Detection of methicillin resistant Staphylococcus aureus (MRSA) DNA SNOMED Code(s): 213483775 Code(s): R89.9 - UNSP ABNORMAL FINDING IN SPECIMENS FROM OT ORG/TISS Status: Chronic Priority: Low Current Visit: No (7) Dyslipidemia SNOMED Code(s): 807075451 Code(s): E78.5 - HYPERLIPIDEMIA, UNSPECIFIED Status: Chronic Priority: Low Current Visit: No (8) GERD (gastroesophageal reflux disease) SNOMED Code(s): 370064992 Code(s): K21.9 - GASTRO-ESOPHAGEAL REFLUX DISEASE WITHOUT ESOPHAGITIS Status: Chronic Priority: Low Current Visit: No Qualifiers: Esophagitis presence: esophagitis presence not specified Qualified Code(s): K21.9 - Gastro-esophageal reflux disease without esophagitis (9) Hypertension SNOMED Code(s): 69816694 Code(s): I10 - ESSENTIAL (PRIMARY) HYPERTENSION Status: Chronic Priority: Low Current Visit: No Qualifiers: Hypertension type: unspecified Qualified Code(s): I10 - Essential (primary) hypertension (10) Hypoalbuminemia SNOMED Code(s): 940672847 Code(s): E88.09 - [facility] DISORDERS OF PLASMA-PROTEIN METABOLISM, NEC Status: Chronic Priority: Low Current Visit: No (11) Anxiety SNOMED Code(s): 03138537 Code(s): F41.9 - ANXIETY DISORDER, UNSPECIFIED Status: Chronic Priority: Medium Current Visit: No (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 SNOMED Code(s): 93370402 Code(s): G23.1 - PROGRESSIVE SUPRANUCLEAR OPHTHALMOPLEGIA Status: Chronic Priority: Medium Current Visit: No (13) Swallowing impairment SNOMED Code(s): 310539102 Code(s): R13.10 - DYSPHAGIA, UNSPECIFIED Status: Chronic Priority: Medium Current Visit: No (14) Wheelchair bound SNOMED Code(s): 542460998, 420192045 Code(s): Z99.3 - DEPENDENCE ON WHEELCHAIR Status: Chronic Priority: Medium Current Visit: No (15) [facility] resident SNOMED Code(s): 596073184 Code(s): Z59.3 - PROBLEMS RELATED TO LIVING IN RESIDENTIAL INSTITUTION Status: Chronic Priority: Low Current Visit: No - Problem List Review Problem List Initiated/Reviewed/Updated: Yes - My Orders Last 24 Hours: My Active Orders 02/29/20 Lunch Mechanical Soft Diet [DIET] 03/02/20 05:11 BASIC METABOLIC PANEL,BMP [CHEM] AM CBC WITH AUTO DIFF [HEME] AM CRP [C-REACTIVE PROTEIN] [CHEM] AM MAGNESIUM [CHEM] AM 03/03/20 05:11 BASIC METABOLIC PANEL,BMP [CHEM] AM CBC WITH AUTO DIFF [HEME] AM CRP [C-REACTIVE PROTEIN] [CHEM] AM MAGNESIUM [CHEM] AM - Plan Plan:: Assessment: Acute: 64-year-old male with history of recurrent pneumonia, UTI, and recent hospitalization returns with hypoxemia and hypercapnia. Healthcare associated pneumonia Small bilateral pleural effusions that appear to be chronic [facility] resident * Although CT scan does not show specific area of pneumonia just possible area of pneumonia he does have multiple criteria for pneumonia * White count is elevated at 12-->5.28-->3.88-->3.29 * C-reactive protein 9.1-->7.5-->6.3-->4.0 * Normal lactic acid * Given Levaquin 750 mg IV in emergency department * Started on cefepime and vancomycin on floor * Not on oxygen at SNF * Weaned off of oxygen on 03/01/20 Recent discharge from hospital secondary to pneumonia and Pseudomonas UTI * Pseudomonas was resistant to fluoroquinolones Leukocytosis * Likely secondary to underlying infection * Now resolved Elevated D-Dimer * CTA negative for PE Small left Sided Pleural Effusion * CT scan finding * IS as directed Old Left Sided-Rib Fractures with one rib fracture showing no definite bridging callus * Chest CT scan report finding Hypomagnesemia * Mg of 1.7-->1.8-->1.9 * Will replete and monitor Hypoalbuminemia * Albumin of 3.0-->2.5 * Employee'S Representative consult Elevated CRP level * Likely from underlying pneumonia * Continue IV antibiotics: vancomycin and cefepime 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 Hopeful for discharge on 03/03/20 back to SNF pending continued improvement
[2020-03-01] MEDS: Enoxaparin 40 MG/0.4 ML Syringe SUBCUT SCH (08:37)
[2020-03-01] MEDS: Magnesium Oxide 400 MG Tab PO SCH ×2 (08:37→21:54)
[2020-03-01] MEDS: Polyethylene Glycol 3350 Powder 17 GM Packet PO SCH (08:37)
[2020-03-01] MEDS: Celecoxib 100 MG Cap PO SCH (08:38)
[2020-03-01] MEDS: Carbidopa/Levodopa 25-100 MG Tab PO SCH ×4 (08:38→21:54)
[2020-03-01] MEDS: Losartan 50 MG Tab PO SCH (08:38)
[2020-03-01] MEDS: Terazosin 5 MG Cap PO SCH ×2 (08:38→21:55)
[2020-03-01] MEDS: Gabapentin 100 MG Cap PO SCH ×3 (08:38→21:53)
[2020-03-01] MEDS: Hydrochlorothiazide 12.5 MG Cap PO SCH (08:38)
[2020-03-01] MEDS: guaiFENesin 600 MG Tab.ER PO SCH ×2 (08:39→21:53)
[2020-03-01] MEDS: Baclofen 10 MG Tab PO SCH ×4 (08:39→21:53)
[2020-03-01] MEDS: busPIRone 15 MG Tab PO SCH ×2 (08:39→21:54)
[2020-03-01] MEDS: Cyclobenzaprine 10 MG Tab PO SCH ×3 (08:39→21:52)
[2020-03-01] MEDS: Saccharomyces Boulardii (Probiotic) 250 MG Cap PO SCH ×2 (08:40→21:53)
[2020-03-01] MEDS: oxyCODONE 5 MG Tab PO PRN ×2 (09:23→13:41)
[2020-03-01] MEDS: Acetaminophen 325 MG Tab PO PRN ×2 (11:27→21:51)
[2020-03-01] MEDS: Vancomycin 1 GM, Vancomycin 500 MG in Sodium Chloride 0.9% 500 ML IV SCH ×2 (11:29→22:55)
[2020-03-01] MEDS: traZODone 50 MG Tab PO SCH (21:53)
[2020-03-01] MEDS: Simvastatin 20 MG Tab PO SCH (21:53)
[2020-03-01] MEDS: Sertraline 50 MG Tab PO SCH (21:54)
[2020-03-02] MEDS: Cefepime 2 GM in Premix Bag 1 BAG IV SCH ×3 (05:44→22:27)
[2020-03-02] MEDS: Acetaminophen 325 MG Tab PO PRN ×2 (05:45→20:24)
[2020-03-02] MEDS: LORazepam 1 MG Tab PO SCH ×4 (06:01→17:59)
--- NOTE | 2020-03-02 07:19 | PCM.PN ---
- General Info Date of Service: 03/02/20 Admission Dx/Problem (Free Text): Admission Diagnosis/Problem Admission Diagnosis/Problem Pneumonia Subjective Update: In to see David. He is sitting up in bed eating. He has no current complaints and says he feels pretty good. Labs continue to look good. He will complete IV antibiotics tomorrow with the plan of returning to [facility]. No nursing concerns. Functional Status: Reports: Pain Controlled, Tolerating Diet, Urinating, Incentive Spirometry. Denies: Ambulating (baseline ), New Symptoms - Review of Systems General: Reports: No Symptoms. Denies: Fever, Weakness, Fatigue, Malaise, Chills HEENT: Reports: No Symptoms. Denies: Headaches, Sore Throat Pulmonary: Reports: No Symptoms. Denies: Shortness of Breath, Cough, Sputum Cardiovascular: Reports: No Symptoms. Denies: Chest Pain, Dyspnea on Exertion Gastrointestinal: Reports: No Symptoms. Denies: Abdominal Pain, Constipation, Diarrhea Genitourinary: Reports: No Symptoms. Denies: Pain Musculoskeletal: Reports: Neck Pain (left - chronic ) Skin: Reports: No Symptoms. 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 Denies: Confusion Psychiatric: Reports: No Symptoms - Patient Data Vitals - Most Recent: Last Vital Signs Temp 97.5 F 03/02/20 05:16 Pulse 57 L 03/02/20 05:16 Resp 16 03/02/20 05:16 BP 117/66 03/02/20 05:16 Pulse Ox 92 L 03/02/20 05:16 Weight - Most Recent: 157 lb 9 oz I&O - Last 24 Hours: Intake & Output 03/01/20 03/02/20 03/02/20 22:59 06:59 14:59 Intake Total 966 720 Output Total 400 650 Balance 566 70 Lab Results Last 24 Hours: Laboratory Results - last 24 hr 03/02/20 03/02/20 Range/Units 06:25 06:25 WBC 4.06 L (4.23-9.07) K/mm3 RBC 4.40 L (4.63-6.08) M/mm3 Hgb 12.2 L (13.7-17.5) gm/dl Hct 38.6 L (40.1-51.0) % MCV 87.7 (79.0-92.2) fl MCH 27.7 (25.7-32.2) pg MCHC 31.6 L (32.2-35.5) g/dl RDW Std Deviation 41.9 (35.1-43.9) fL Plt Count 200 (163-337) K/mm3 MPV 11.1 (9.4-12.3) fl Neut % (Auto) 44.4 (34.0-67.9) % Lymph % (Auto) 38.7 (21.8-53.1) % [place] % (Auto) 11.3 (5.3-12.2) % Eos % (Auto) 4.9 (0.8-7.0) Baso % (Auto) 0.5 (0.1-1.2) % Neut # (Auto) 1.80 (1.78-5.38) K/mm3 Lymph # (Auto) 1.57 (1.32-3.57) K/mm3 [place] # (Auto) 0.46 (0.30-0.82) K/mm3 Eos # (Auto) 0.20 (0.04-0.54) K/mm3 Baso # (Auto) 0.02 (0.01-0.08) K/mm3 Sodium 142 (136-145) mEq/L Potassium 4.0 (3.5-5.1) mEq/L Chloride 103 (98-107) mEq/L Carbon Dioxide 33 H (21-32) mEq/L Anion Gap 10.0 (5-15) BUN 12 (7-18) mg/dL Creatinine 0.6 L (0.7-1.3) mg/dL Est Cr Clr Drug Dosing 129.04 mL/min Estimated GFR (MDRD) > 60 (>60) mL/min BUN/Creatinine Ratio 20.0 H (14-18) Glucose 79 L (80-115) mg/dL Calcium 8.8 (8.5-10.1) mg/dL Magnesium 1.9 (1.8-2.4) mg/dl C-Reactive Protein 2.7 H* (<1.0) mg/dL [place] Results Last 24 Hours: Microbiology 02/25/20 13:45 Aerobic Blood Culture - Preliminary Blood - Venous - Lab Draw NO GROWTH AFTER 5 DAYS Anaerobic Blood Culture - Preliminary NO GROWTH AFTER 5 DAYS 02/25/20 13:35 Aerobic Blood Culture - Preliminary Blood - Venous NO GROWTH AFTER 5 DAYS Anaerobic Blood Culture - Preliminary NO GROWTH AFTER 5 DAYS Med Orders - Current: Current Medications Acetaminophen (Tylenol) 650 mg PO Q6H PRN PRN Reason: Pain Last Admin: 03/02/20 05:45 Dose: 650 mg Documented by: Baclofen (Lioresal) 10 mg PO QID REPLACED BY [facility] Last Admin: 03/01/20 21:53 Dose: 10 mg Documented by: Benzonatate (Tessalon Perles) 100 mg PO TID PRN PRN Reason: Cough Buspirone HCl (Buspar) 15 mg PO BID REPLACED BY [facility] Last Admin: 03/01/20 21:54 Dose: 15 mg Documented by: Carbidopa/Levodopa (Sinemet 25-100 Mg) 1 tab PO QID REPLACED BY [facility] Last Admin: 03/01/20 21:54 Dose: 1 tab Documented by: Celecoxib (Celebrex) 200 mg PO DAILY REPLACED BY [facility] Last Admin: 03/01/20 08:38 Dose: 200 mg Documented by: Cyclobenzaprine HCl (Flexeril) 5 mg PO TID REPLACED BY [facility] Last Admin: 03/01/20 21:52 Dose: 5 mg Documented by: Enoxaparin Sodium (Lovenox) 40 mg SUBCUT DAILY REPLACED BY [facility] Last Admin: 03/01/20 08:37 Dose: 40 mg Documented by: Fentanyl (Duragesic) 100 mcg TRDERM Q72H REPLACED BY [facility] Last Admin: 02/29/20 16:48 Dose: 100 mcg Documented by: Gabapentin (Neurontin) 200 mg PO TID REPLACED BY [facility] Last Admin: 03/01/20 21:53 Dose: 200 mg Documented by: Guaifenesin (Robitussin) 400 mg PO Q4H PRN PRN Reason: Cough Guaifenesin (Mucinex) 600 mg PO BID REPLACED BY [facility] Last Admin: 03/01/20 21:53 Dose: 600 mg Documented by: Hydrochlorothiazide (Hydrochlorothiazide) 12.5 mg PO DAILY REPLACED BY [facility] Last Admin: 03/01/20 08:38 Dose: 12.5 mg Documented by: Hydromorphone HCl (Dilaudid) 2 mg PO Q6H PRN PRN Reason: Pain Last Admin: 02/27/20 18:09 Dose: 2 mg Documented by: Cefepime HCl 2 gm/ Premix 50 mls @ 100 mls/hr IV Q8H REPLACED BY [facility] Last Admin: 03/02/20 05:44 Dose: 100 mls/hr Documented by: Vancomycin HCl 1 gm/Vancomycin HCl 500 mg/ Sodium Chloride 500 mls @ 250 mls/hr IV Q12H REPLACED BY [facility] Last Admin: 03/01/20 22:55 Dose: 250 mls/hr Documented by: Lactulose (Cephulac) 20 gm PO DAILY PRN PRN Reason: Constipation Lorazepam (Ativan) 1 mg PO BID@1200,1600 REPLACED BY [facility] Last Admin: 03/01/20 15:42 Dose: 1 mg Documented by: Lorazepam (Ativan) 1 mg PO BID@0700,1900 REPLACED BY [facility] Last Admin: 03/02/20 06:01 Dose: 1 mg Documented by: Losartan Potassium (Cozaar) 50 mg PO DAILY REPLACED BY [facility] Last Admin: 03/01/20 08:38 Dose: 50 mg Documented by: Magnesium Oxide (Magnesium Oxide) 400 mg PO BID REPLACED BY [facility] Last Admin: 03/01/20 21:54 Dose: 400 mg Documented by: Miscellaneous Information (Remove Patch) 1 ea TRDERM Q72H REPLACED BY [facility] Last Admin: 02/29/20 16:49 Dose: 1 ea Documented by: Ondansetron HCl (Zofran Odt) 4 mg PO Q6H PRN PRN Reason: nausea, able to take PO Oxycodone HCl (Oxycodone) 5 mg PO Q4H PRN PRN Reason: Pain (moderate 4-6) Last Admin: 03/01/20 13:41 Dose: 5 mg Documented by: Polyethylene Glycol (Miralax) 17 gm PO DAILY REPLACED BY [facility] Last Admin: 03/01/20 08:37 Dose: 17 gm Documented by: Saccharomyces Boulardii (Florastor) 500 mg PO BID REPLACED BY [facility] Last Admin: 03/01/20 21:53 Dose: 500 mg Documented by: Senna/Docusate Sodium (Senna Plus) 1 tab PO DAILY REPLACED BY [facility] Last Admin: 03/01/20 08:39 Dose: 1 tab Documented by: Senna/Docusate Sodium (Senna Plus) 1 tab PO TID PRN PRN Reason: Constipation Sertraline HCl (Zoloft) 50 mg PO BEDTIME REPLACED BY [facility] Last Admin: 03/01/20 21:54 Dose: 50 mg Documented by: Simvastatin (Zocor) 20 mg PO BEDTIME REPLACED BY [facility] Last Admin: 03/01/20 21:53 Dose: 20 mg Documented by: Sodium Chloride (Saline Flush) 10 ml FLUSH ASDIRECTED PRN PRN Reason: Keep Vein Open Last Admin: 02/25/20 14:17 Dose: 10 ml Documented by: Terazosin HCl (Hytrin) 5 mg PO BID REPLACED BY [facility] Last Admin: 03/01/20 21:55 Dose: 5 mg Documented by: Trazodone HCl (Trazodone) 150 mg PO BEDTIME REPLACED BY [facility] Last Admin: 03/01/20 21:53 Dose: 150 mg Documented by: Trolamine Salicylate (Aspercreme 10%) 0 gm TOP Q4H PRN PRN Reason: Pain (mild 1-3) Vancomycin HCl (Pharmacy To Dose - Vancomycin) 1 dose .XX ASDIRECTED PRN PRN Reason: RX TO DOSE VANCO Discontinued Medications Fentanyl (Duragesic) 100 mcg TRDERM Q72H REPLACED BY [facility] Hydromorphone HCl (Dilaudid) 2 mg PO Q6H REPLACED BY [facility] Last Admin: 02/26/20 08:52 Dose: 2 mg Documented by: Sodium Chloride (Normal Saline) 1,000 mls @ 100 mls/hr IV BOLUS ONE Stop: 02/25/20 23:05 Last Admin: 02/25/20 21:13 Dose: Not Given Documented by: Sodium Chloride (Normal Saline) 1,000 mls @ 150 mls/hr IV NOW STA Stop: 02/25/20 21:19 Last Admin: 02/25/20 16:16 Dose: 150 mls/hr Documented by: Sodium Chloride (Normal Saline) 100 mls @ 75 mls/hr IV ASDIRECTED REPLACED BY [facility] Last Admin: 02/25/20 15:22 Dose: 75 mls/hr Documented by: Ceftriaxone Sodium 1 gm/ (Sodium Chloride) 100 mls @ 200 mls/hr IV ONETIME ONE Stop: 02/25/20 16:17 Last Admin: 02/25/20 21:13 Dose: Not Given Documented by: Levofloxacin/Dextrose 750 mg/ (Premix) 150 mls @ 100 mls/hr IV ONETIME ONE Stop: 02/25/20 17:22 Last Admin: 02/25/20 16:18 Dose: 100 mls/hr Documented by: Sodium Chloride (Normal Saline) 1,000 mls @ 100 mls/hr IV ASDIRECTED REPLACED BY [facility] Last Admin: 02/27/20 09:08 Dose: 100 mls/hr Documented by: Vancomycin HCl 1 gm/ Sodium (Chloride) 250 mls @ 250 mls/hr IV Q12H REPLACED BY [facility] Last Admin: 02/27/20 12:01 Dose: 250 mls/hr Documented by: Vancomycin HCl 1.25 gm/ Sodium (Chloride) 250 mls @ 250 mls/hr IV Q12H REPLACED BY [facility] Stop: 02/28/20 13:00 Last Admin: 02/28/20 11:49 Dose: 250 mls/hr Documented by: Sodium Chloride (Normal Saline) 1,000 mls @ 25 mls/hr IV ASDIRECTED REPLACED BY [facility] Last Admin: 02/27/20 21:33 Dose: 25 mls/hr Documented by: Vancomycin HCl 1 gm/Vancomycin HCl 250 mg/ Sodium Chloride 250 mls @ 250 mls/hr IV Q12H REPLACED BY [facility] Last Admin: 02/28/20 14:38 Dose: Not Given Documented by: Vancomycin HCl 1 gm/Vancomycin HCl 250 mg/ Sodium Chloride 250 mls @ 250 mls/hr IV Q12H REPLACED BY [facility] Stop: 02/29/20 13:00 Last Admin: 02/29/20 11:07 Dose: 250 mls/hr Documented by: Magnesium Sulfate (Magnesium Sulfate In Water Premix) 2 gm in 50 mls @ 25 mls/hr IV ONETIME ONE Stop: 02/28/20 14:31 Last Admin: 02/28/20 16:22 Dose: 25 mls/hr Documented by: Magnesium Sulfate (Magnesium Sulfate In Water Premix) 2 gm in 50 mls @ 25 mls/hr IV ONETIME ONE Stop: 02/29/20 09:58 Last Admin: 02/29/20 09:05 Dose: 25 mls/hr Documented by: Iopamidol (Isovue-370 (76%)) 100 ml IVPUSH ONETIME ONE Stop: 02/25/20 14:44 Last Admin: 02/25/20 15:22 Dose: 100 ml Documented by: Miscellaneous Information (Remove Patch) 1 ea TRDERM Q72H REPLACED BY [facility] Vanco Trough 0 each .XX ONETIME ONE Stop: 02/27/20 10:01 Last Admin: 02/27/20 13:30 Dose: Not Given Documented by: Sodium Chloride (Saline Flush) 10 ml FLUSH ONETIME PRN PRN Reason: IV FLUSH Last Admin: 02/25/20 15:22 Dose: 10 ml Documented by: - Exam Quality Assessment: DVT Prophylaxis. No: Supplemental Oxygen, Urine Catheter General: Alert, Oriented, Cooperative, No Acute Distress HEENT: Pupils Equal, Pupils Reactive Neck: Supple, Trachea Midline Lungs: Normal Respiratory Effort, Decreased Breath Sounds Cardiovascular: Regular Rate, Regular Rhythm GI/Abdominal Exam: Normal Bowel Sounds, Soft, Non-Tender, No Distention (Male) Exam: Deferred Extremities: Non-Tender, No Pedal Edema, Limited Range of Motion (underlying progressive supranuclear palsy). No: Leg Pain, Increased Warmth Skin: Warm, Dry, Intact Neurological: No New Focal Deficit Psy/Mental Status: Alert Sepsis Event Note - Evaluation Sepsis Screening Result: No Definite Risk - Focused Exam Vital Signs: Vital Signs Temp Temp Pulse Pulse Resp BP BP 03/02/20 05:16 97.5 F 57 L 16 117/66 03/02/20 00:01 97.5 F 62 16 97/56 L 03/01/20 21:55 104/61 03/01/20 20:00 98.2 F 68 18 104/61 03/01/20 19:21 98.2 F 68 18 104/61 Pulse Ox 03/02/20 05:16 92 L 03/02/20 00:01 95 03/01/20 21:55 03/01/20 20:00 92 L 03/01/20 19:21 92 L - Problem List & Annotations (1) Healthcare-associated pneumonia SNOMED Code(s): 960965802, 519635242 Code(s): J18.9 - PNEUMONIA, UNSPECIFIED ORGANISM Status: Acute Priority: High Current Visit: Yes (2) Hypoxemia SNOMED Code(s): 450204052 Code(s): R09.02 - HYPOXEMIA Status: Acute Priority: High Current Visit: Yes (3) Leukocytosis SNOMED Code(s): 520281917, 936131382 Code(s): D72.829 - ELEVATED WHITE BLOOD CELL COUNT, UNSPECIFIED Status: Acute Priority: High Current Visit: Yes Qualifiers: Leukocytosis type: unspecified Qualified Code(s): D72.829 - Elevated white blood cell count, unspecified (4) Acute respiratory acidosis SNOMED Code(s): 25843825 Code(s): E87.2 - ACIDOSIS Status: Acute Current Visit: No (5) Benign prostate hyperplasia SNOMED Code(s): 465462797 Code(s): N40.0 - BENIGN PROSTATIC HYPERPLASIA WITHOUT LOWER URINRY TRACT SYMP Status: Chronic Priority: Low Current Visit: No Qualifiers: Lower urinary tract symptom presence: unspecified whether lower urinary tract symptoms present Qualified Code(s): N40.0 - Benign prostatic hyperplasia without lower urinary tract symptoms (6) Detection of methicillin resistant Staphylococcus aureus (MRSA) DNA SNOMED Code(s): 143935208 Code(s): R89.9 - UNSP ABNORMAL FINDING IN SPECIMENS FROM OT ORG/TISS Status: Chronic Priority: Low Current Visit: No (7) Dyslipidemia SNOMED Code(s): 718830635 Code(s): E78.5 - HYPERLIPIDEMIA, UNSPECIFIED Status: Chronic Priority: Low Current Visit: No (8) GERD (gastroesophageal reflux disease) SNOMED Code(s): 077864459 Code(s): K21.9 - GASTRO-ESOPHAGEAL REFLUX DISEASE WITHOUT ESOPHAGITIS Status: Chronic Priority: Low Current Visit: No Qualifiers: Esophagitis presence: esophagitis presence not specified Qualified Code(s): K21.9 - Gastro-esophageal reflux disease without esophagitis (9) Hypertension SNOMED Code(s): 17104099 Code(s): I10 - ESSENTIAL (PRIMARY) HYPERTENSION Status: Chronic Priority: Low Current Visit: No Qualifiers: Hypertension type: unspecified Qualified Code(s): I10 - Essential (primary) hypertension (10) Hypoalbuminemia SNOMED Code(s): 799729352 Code(s): E88.09 - 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 SNOMED Code(s): 53215431 Code(s): G23.1 - PROGRESSIVE SUPRANUCLEAR OPHTHALMOPLEGIA Status: Chronic Priority: Medium Current Visit: No (13) Swallowing impairment SNOMED Code(s): 038144393 Code(s): R13.10 - DYSPHAGIA, UNSPECIFIED Status: Chronic Priority: Medium Current Visit: No (14) Wheelchair bound SNOMED Code(s): 666778522, 047349883 Code(s): Z99.3 - DEPENDENCE ON WHEELCHAIR Status: Chronic Priority: Medium Current Visit: No (15) [facility] resident SNOMED Code(s): 627492692 Code(s): Z59.3 - PROBLEMS RELATED TO LIVING IN RESIDENTIAL INSTITUTION Status: Chronic Priority: Low Current Visit: No - Problem List Review Problem List Initiated/Reviewed/Updated: Yes - My Orders Last 24 Hours: My Active Orders 03/03/20 05:11 BASIC METABOLIC PANEL,BMP [CHEM] AM CBC WITH AUTO DIFF [HEME] AM CRP [C-REACTIVE PROTEIN] [CHEM] AM MAGNESIUM [CHEM] AM - Plan Plan:: Assessment: Acute: 64-year-old male with history of recurrent pneumonia, UTI, and recent hospital ization returns with hypoxemia and hypercapnia. Healthcare associated pneumonia Small bilateral pleural effusions that appear to be chronic [facility] resident * Although CT scan does not show specific area of pneumonia just possible area of pneumonia he does have multiple criteria for pneumonia * White count is elevated at 12-->5.28-->3.88-->3.29-->4.06 * C-reactive protein 9.1-->7.5-->6.3-->4.0-->2.7 * Normal lactic acid * Given Levaquin 750 mg IV in emergency department * Started on cefepime and vancomycin on floor * Not on oxygen at SNF * Weaned off of oxygen on 03/01/20 Recent discharge from hospital secondary to pneumonia and Pseudomonas UTI * Pseudomonas was resistant to fluoroquinolones Leukocytosis * Likely secondary to underlying infection * Now resolved Elevated D-Dimer * CTA negative for PE Small left Sided Pleural Effusion * CT scan finding * IS as directed Old Left Sided-Rib Fractures with one rib fracture showing no definite bridging callus * Chest CT scan report finding Hypomagnesemia * Mg of 1.7-->1.8-->1.9-->1.9-->1.9 * Will replete and monitor Hypoalbuminemia * Albumin of 3.0-->2.5 * Plasticator consult Elevated CRP level * Likely from underlying pneumonia * Continue IV antibiotics: vancomycin and cefepime 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 * DNR/DNI * LOS > 96 hrs for treatment of HCAP. Hopeful for discharge on 03/03/20 (tomorrow) back to SNF pending continued improvement
[2020-03-02] MEDS: Losartan 50 MG Tab PO SCH (08:44)
[2020-03-02] MEDS: Cyclobenzaprine 10 MG Tab PO SCH ×3 (08:45→20:23)
[2020-03-02] MEDS: busPIRone 15 MG Tab PO SCH ×2 (08:45→20:24)
[2020-03-02] MEDS: Celecoxib 100 MG Cap PO SCH (08:45)
[2020-03-02] MEDS: Carbidopa/Levodopa 25-100 MG Tab PO SCH ×4 (08:46→20:22)
[2020-03-02] MEDS: Baclofen 10 MG Tab PO SCH ×4 (08:46→20:23)
[2020-03-02] MEDS: Hydrochlorothiazide 12.5 MG Cap PO SCH (08:46)
[2020-03-02] MEDS: Magnesium Oxide 400 MG Tab PO SCH ×2 (08:46→20:24)
[2020-03-02] MEDS: Terazosin 5 MG Cap PO SCH ×2 (08:46→20:24)
[2020-03-02] MEDS: Gabapentin 100 MG Cap PO SCH ×3 (08:46→20:23)
[2020-03-02] MEDS: Saccharomyces Boulardii (Probiotic) 250 MG Cap PO SCH ×2 (08:46→20:22)
[2020-03-02] MEDS: oxyCODONE 5 MG Tab PO PRN ×3 (08:46→23:14)
[2020-03-02] MEDS: Enoxaparin 40 MG/0.4 ML Syringe SUBCUT SCH (08:47)
[2020-03-02] MEDS: guaiFENesin 600 MG Tab.ER PO SCH ×2 (08:47→20:25)
[2020-03-02] MEDS: Polyethylene Glycol 3350 Powder 17 GM Packet PO SCH (08:47)
[2020-03-02] MEDS: Vancomycin 1 GM, Vancomycin 500 MG in Sodium Chloride 0.9% 500 ML IV SCH ×2 (10:59→23:09)
[2020-03-02] MEDS: HYDROmorphone 2 MG Tab PO PRN ×2 (13:24→20:25)
[2020-03-02] MEDS ORDERED: Bisacodyl 10 MG Supp RECTAL ONE (16:59)
[2020-03-02] MEDS: Simvastatin 20 MG Tab PO SCH (20:21)
[2020-03-02] MEDS: traZODone 50 MG Tab PO SCH (20:24)
[2020-03-02] MEDS: Sertraline 50 MG Tab PO SCH (20:25)
[2020-03-03] MEDS: LORazepam 1 MG Tab PO SCH ×2 (06:08→12:51)
[2020-03-03] MEDS: Cefepime 2 GM in Premix Bag 1 BAG IV SCH (06:09)
--- NOTE | 2020-03-03 07:25 | PCM.DCSUM1 ---
Discharge Summary - Hospital Course HPI Initial Comments: 64-year-old male that was recently discharged from the hospital on 02/21/2020 after having been treated for pneumonia and Pseudomonas UTI. Patient has been hospitalized 3 times over the last 2 months. Patient was hospitalized from 02/11/2020 through 02/21/2020. Received antibiotics for the entire time. Patient apparently was brought back in just 4 days after discharge when nursing staff reports the patient's oxygen saturation was found to be 85% on room air. When patient was here previously he did have his fentanyl increased to 100 mcg. Currently patient does have a slight cough which is chronic otherwise he states he is feeling well. On arrival patient did have oxygen saturation of 84% on room air and he was placed on 2 L nasal cannula. CTA of the chest was performed which showed no pulmonary embolism, small left-sided pleural effusion which is stable. Mild increased density within the left lung base some of which appears chronic but other increased density is seen either due to atelectasis or small area of pneumonia. No clear area of pneumonia. White count was elevated at 12.17 and C-reactive protein of 9.1. 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 Diagnosis: Stroke: No - Discharge Data Discharge Date: 03/03/20 (Admit date: 02/25/2020) Discharge Disposition: DC/Tfer to SNF 03 Condition: Good - Referral to Home Health Primary Care Physician: Nik Hughes MD - Discharge Diagnosis/Problem(s) (1) Healthcare-associated pneumonia SNOMED Code(s): 740355073, 782542320 ICD Code: J18.9 - PNEUMONIA, UNSPECIFIED ORGANISM Status: Acute Priority: High Current Visit: Yes (2) Hypoxemia SNOMED Code(s): 712428615 ICD Code: R09.02 - HYPOXEMIA Status: Resolved Priority: High Current Visit: Yes (3) Leukocytosis SNOMED Code(s): 249914532, 578566645 ICD Code: D72.829 - ELEVATED WHITE BLOOD CELL COUNT, UNSPECIFIED Status: Resolved Priority: High Current Visit: Yes Qualifiers: Leukocytosis type: unspecified Qualified Code(s): D72.829 - Elevated white blood cell count, unspecified (4) Acute respiratory acidosis SNOMED Code(s): 74067748 ICD Code: E87.2 - ACIDOSIS Status: Resolved Current Visit: No (5) Benign prostate hyperplasia SNOMED Code(s): 268911992 ICD Code: N40.0 - BENIGN PROSTATIC HYPERPLASIA WITHOUT LOWER URINRY TRACT SYMP Status: Chronic Priority: Low Current Visit: No Qualifiers: Lower urinary tract symptom presence: unspecified whether lower urinary tract symptoms present Qualified Code(s): N40.0 - Benign prostatic hyperplasia without lower urinary tract symptoms (6) Detection of methicillin resistant Staphylococcus aureus (MRSA) DNA SNOMED Code(s): 477342161 ICD Code: R89.9 - UNSP ABNORMAL FINDING IN SPECIMENS FROM OT ORG/TISS Sta tus: Chronic Priority: Low Current Visit: No (7) Dyslipidemia SNOMED Code(s): 315400452 ICD Code: E78.5 - HYPERLIPIDEMIA, UNSPECIFIED Status: Chronic Priority: Low Current Visit: No (8) GERD (gastroesophageal reflux disease) SNOMED Code(s): 424648924 ICD Code: K21.9 - GASTRO-ESOPHAGEAL REFLUX DISEASE WITHOUT ESOPHAGITIS Status: Chronic Priority: Low Current Visit: No Qualifiers: Esophagitis presence: esophagitis presence not specified Qualified Code(s): K21.9 - Gastro-esophageal reflux disease without esophagitis (9) Hypertension SNOMED Code(s): 58199980 ICD Code: I10 - ESSENTIAL (PRIMARY) HYPERTENSION Status: Chronic Priority: Low Current Visit: No Qualifiers: Hypertension type: unspecified Qualified Code(s): I10 - Essential (primary) hypertension (10) Hypoalbuminemia SNOMED Code(s): 354545528 ICD Code: E88.09 - [facility] DISORDERS OF PLASMA-PROTEIN METABOLISM, NEC Status: Chronic Priority: Low Current Visit: No (11) Anxiety SNOMED Code(s): 65335819 ICD Code: F41.9 - ANXIETY DISORDER, UNSPECIFIED Status: Chronic Priority: Medium Current Visit: No (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 SNOMED Code(s): 70056705 ICD Code: G23.1 - PROGRESSIVE SUPRANUCLEAR OPHTHALMOPLEGIA Status: Chronic Priority: Medium Current Visit: No (13) Swallowing impairment SNOMED Code(s): 213577876 ICD Code: R13.10 - DYSPHAGIA, UNSPECIFIED Status: Chronic Priority: Medium Current Visit: No (14) Wheelchair bound SNOMED Code(s): 545501782, 093059098 ICD Code: Z99.3 - DEPENDENCE ON WHEELCHAIR Status: Chronic Priority: Medium Current Visit: No (15) detention resident SNOMED Code(s): 759369016 ICD Code: Z59.3 - PROBLEMS RELATED TO LIVING IN RESIDENTIAL INSTITUTION Status: Chronic Priority: Low Current Visit: No - Patient Summary/Data Consults: Consultations 02/28/20 10:02 Consult to Case Management/Glass Laminating Operator [CONS] Routine Consult to Water Pollution Specialist [CONS] Routine Labs Pending at D/C: None Recommended Follow-up Testing/Procedures: Follow-up with primary care provider within 5-7 days of discharge, sooner if needed. -Recommend repeat CBC, CMP, and magnesium at that visit. -Consider repeat CXR. Hospital Course: David was admitted to the hospital with hypoxemia and hypercapnia secondary to healthcare-acquired pneumonia. He had been recently hospitalized and also resides in a [facility]. Was hospitalized due to pneumonia and a Pseudomonas UTI which was noted to be resistant to fluoroquinolones. WBC and CRP were noted to be elevated and he was requiring 2 L of oxygen. He was started on cefepime and vancomycin. In the ED was noted to have an elevated D-dimer but CTA was obtained and was negative. He is noted to have a small left-sided pleural effusion and old left-sided rib fractures with one rib fracture showing no definitive bridging callus. He was given an I-S for this. Magnesium was low and was supplemented. He has a baseline progressive neurologic disease with supranuclear ophthalmoplegia. This leads to muscle spasms and contractures of all extremities. Aspiration precautions were in place. His albumin was low and needed see our dietitian. His white count and CRP did trend downward with treatment and he responded well. He was able to be weaned off of oxygen. He received 8 days worth of antibiotic treatment. He was screened for SARS-CoV-2 RNA on admission and discharge and both tests were negative. He is a resident of [facility] and will return there today. Discharge today. No new medications as he completed treatment. All home medications were continued. Recommend follow-up with primary care provider within 5 to 7 days of discharge. Recommend repeat CBC, CMP, magnesium, and considering repeat chest x-ray at that time. He was instructed to return to the emergency room or contact his primary care provider should symptoms return or worsen. - Patient Instructions Diet, Other: NDD2 Diet; 1on1 assist per [facility] [employer] eval on 02/21/20; no straws; Edison thick Activity: As Tolerated Notify Provider of: Fever, Increased Pain, Nausea and/or Vomiting Other/Special Instructions: Follow-up with primary care provider within 5-7 days of discharge, sooner if needed. Resume home medications as directed. No new medications. You completed treatment for your pneumonia while here. Should symptoms return or worsen contact primary care provider or return to the Emergency Department. - Discharge Plan *PRESCRIPTION DRUG MONITORING PROGRAM REVIEWED*: No *COPY OF PRESCRIPTION DRUG MONITORING REPORT IN PATIENT DINESH: No Home Medications: Home Meds Acetaminophen [Tylenol Arthritis Pain] 650 mg PO Q6H PRN #120 dose 10/22/19 [Rx] Benzonatate [Tessalon Perle] 100 mg PO TID PRN #30 capsule 10/22/19 [Rx] Carbidopa/Levodopa [Carbidopa-Levodopa 25-100] 1 tab PO QID #120 tablet 10/22/19 [Rx] Gabapentin [Neurontin] 200 mg PO TID #120 dose 10/22/19 [Rx] Lactulose [Kristalose] 20 gm PO DAILY PRN #120 packet 10/22/19 [Rx] Losartan [Cozaar] 50 mg PO DAILY #30 dose 10/22/19 [Rx] Magnesium Oxide [Magnesium] 400 mg PO BID #60 dose 10/22/19 [Rx] Ondansetron [Zofran ODT] 4 mg PO Q6H PRN #20 tab.dis 10/22/19 [Rx] Simvastatin 20 mg PO BEDTIME #30 dose 10/22/19 [Rx] Terazosin [Hytrin] 5 mg PO BID #60 cap 10/22/19 [Rx] busPIRone [Buspar] 15 mg PO BID #60 tablet 10/22/19 [Rx] guaiFENesin [Fenesin IR] 400 mg PO Q4H PRN #60 tablet 10/22/19 [Rx] Baclofen 10 mg PO QID 12/14/19 [History] LORazepam [Ativan] 1 mg PO 12,16 12/14/19 [History] Sennosides/Docusate Sodium [Senna Plus 8.6-50 mg Tablet] 1 tab PO DAILY 12/14/19 [History] Sennosides/Docusate Sodium [Senna Plus Tablet] 1 each PO TID PRN 12/14/19 [History] Trolamine Salicylate/Aloe Vera [Aspercreme 10% Cream] 2 gm TP Q4H PRN 12/14/19 [History] hydroCHLOROthiazide [Hydrochlorothiazide] 12.5 mg PO DAILY 12/14/19 [History] polyethylene glycoL 3350 [MiraLAX] 17 gram PO DAILY 12/14/19 [History] Remove Patch 1 ea TRDERM Q72H each 12/20/19 [Rx] Celecoxib 200 mg PO DAILY 02/11/20 [History] Cyclobenzaprine [Flexeril] 5 mg PO TID 02/11/20 [History] LORazepam [Ativan] 1 mg PO 02/11/20 [History] Lactobacillus Acidophilus [Acidophilus Lactobacilli] 1 tab PO DAILY 02/11/20 [History] Sertraline [Zoloft] 50 mg PO BEDTIME 02/11/20 [History] guaiFENesin [Mucinex] 600 mg PO BID 02/11/20 [History] traZODone HCl [Trazodone HCl] 150 mg PO BEDTIME 02/11/20 [History] fentaNYL [Duragesic] 100 mcg TRDERM Q72H 30 Days #10 patch 02/17/20 [Rx] HYDROmorphone [Dilaudid] 2 mg PO Q6H PRN 02/26/20 [History] Oxygen Therapy Mode: Room Air Patient Handouts: Community-Acquired Pneumonia, Adult, [id number], Sepsis, Self Care, Adult Referrals: Nik Hughes MD [Primary Care Provider] - - Discharge Summary/Plan Comment DC Time >30 min.: Yes (45 mins ) - General Info Date of Service: 03/03/20 Admission Dx/Problem (Free Text: Admission Diagnosis/Problem Admission Diagnosis/Problem Pneumonia Functional Status: Reports: Pain Controlled, Tolerating Diet, Urinating. Denies: Ambulating (baseline ), New Symptoms - Review of Systems General: Reports: No Symptoms. Denies: Fever, Weakness, Fatigue, Malaise, Chills HEENT: Reports: No Symptoms. Denies: Headaches, Sore Throat Pulmonary: Reports: No Symptoms. Denies: Shortness of Breath, Cough, Sputum, Wheezing Cardiovascular: Reports: No Symptoms. Denies: Chest Pain, Palpitations, Edema Gastrointestinal: Reports: No Symptoms. Denies: Abdominal Pain, Constipation, Diarrhea, Nausea, Vomiting Genitourinary: Reports: No Symptoms. Denies: Pain Musculoskeletal: Reports: Neck Pain (Chronic left ) Skin: Reports: No Symptoms Neurological: Reports: Pre-Existing Deficit (underlying progressive supranuclear palsy), Trouble Speaking (baseline), Difficulty Walking (baseline), Gait Disturbance (baseline). Denies: Confusion, Dizziness, Headache, Numbness, Seizure, Syncope, Tingling Psychiatric: Reports: No Symptoms - Patient Data Vitals - Most Recent: Last Vital Signs Temp 97.9 F 03/03/20 03:06 Pulse 59 L 03/03/20 03:06 Resp 16 03/02/20 19:07 BP 113/71 03/03/20 03:06 Pulse Ox 92 L 03/03/20 03:06 Weight - Most Recent: 157 lb I&O - Last 24 hours: Intake & Output 03/02/20 03/03/20 03/03/20 22:59 06:59 14:59 Intake Total 1220 670 Output Total 1000 475 Balance 220 195 TYREE Results - Last 24 hrs: Microbiology 02/25/20 13:45 Aerobic Blood Culture - Preliminary Blood - Venous - Lab Draw NO GROWTH AFTER 6 DAYS Anaerobic Blood Culture - Preliminary NO GROWTH AFTER 6 DAYS 02/25/20 13:35 Aerobic Blood Culture - Preliminary Blood - Venous NO GROWTH AFTER 6 DAYS Anaerobic Blood Culture - Preliminary NO GROWTH AFTER 6 DAYS Med Orders - Current: Current Medications Acetaminophen (Tylenol) 650 mg PO Q6H PRN PRN Reason: Pain Last Admin: 03/02/20 20:24 Dose: 650 mg Documented by: Baclofen (Lioresal) 10 mg PO QID [facility] Last Admin: 03/02/20 20:23 Dose: 10 mg Documented by: Benzonatate (Tessalon Perles) 100 mg PO TID PRN PRN Reason: Cough Buspirone HCl (Buspar) 15 mg PO BID [facility] Last Admin: 03/02/20 20:24 Dose: 15 mg Documented by: Carbidopa/Levodopa (Sinemet 25-100 Mg) 1 tab PO QID [facility] Last Admin: 03/02/20 20:22 Dose: 1 tab Documented by: Celecoxib (Celebrex) 200 mg PO DAILY [facility] Last Admin: 03/02/20 08:45 Dose: 200 mg Documented by: Cyclobenzaprine HCl (Flexeril) 5 mg PO TID [facility] Last Admin: 03/02/20 20:23 Dose: 5 mg Documented by: Enoxaparin Sodium (Lovenox) 40 mg SUBCUT DAILY [facility] Last Admin: 03/02/20 08:47 Dose: 40 mg Documented by: Fentanyl (Duragesic) 100 mcg TRDERM Q72H [facility] Last Admin: 02/29/20 16:48 Dose: 100 mcg Documented by: Gabapentin (Neurontin) 200 mg PO TID [facility] Last Admin: 03/02/20 20:23 Dose: 200 mg Documented by: Guaifenesin (Robitussin) 400 mg PO Q4H PRN PRN Reason: Cough Guaifenesin (Mucinex) 600 mg PO BID [facility] Last Admin: 03/02/20 20:25 Dose: 600 mg Documented by: Hydrochlorothiazide (Hydrochlorothiazide) 12.5 mg PO DAILY [facility] Last Admin: 03/02/20 08:46 Dose: 12.5 mg Documented by: Hydromorphone HCl (Dilaudid) 2 mg PO Q6H PRN PRN Reason: Pain Last Admin: 03/02/20 20:25 Dose: 2 mg Documented by: Cefepime HCl 2 gm/ Premix 50 mls @ 100 mls/hr IV Q8H [facility] Last Admin: 03/03/20 06:09 Dose: 100 mls/hr Documented by: Vancomycin HCl 1 gm/Vancomycin HCl 500 mg/ Sodium Chloride 500 mls @ 250 mls/hr IV Q12H [facility] Last Admin: 03/02/20 23:09 Dose: 250 mls/hr Documented by: Lactulose (Cephulac) 20 gm PO DAILY PRN PRN Reason: Constipation Last Admin: 03/02/20 14:32 Dose: 20 gm Documented by: Lorazepam (Ativan) 1 mg PO BID@1200,1600 [facility] Last Admin: 03/02/20 15:13 Dose: 1 mg Documented by: Lorazepam (Ativan) 1 mg PO BID@0700,1900 [facility] Last Admin: 03/03/20 06:08 Dose: 1 mg Documented by: Losartan Potassium (Cozaar) 50 mg PO DAILY [facility] Last Admin: 03/02/20 08:44 Dose: 50 mg Documented by: Magnesium Oxide (Magnesium Oxide) 400 mg PO BID [facility] Last Admin: 03/02/20 20:24 Dose: 400 mg Documented by: Miscellaneous Information (Remove Patch) 1 ea TRDERM Q72H [facility] Last Admin: 02/29/20 16:49 Dose: 1 ea Documented by: Ondansetron HCl (Zofran Odt) 4 mg PO Q6H PRN PRN Reason: nausea, able to take PO Oxycodone HCl (Oxycodone) 5 mg PO Q4H PRN PRN Reason: Pain (moderate 4-6) Last Admin: 03/02/20 23:14 Dose: 5 mg Documented by: Polyethylene Glycol (Miralax) 17 gm PO DAILY [facility] Last Admin: 03/02/20 08:47 Dose: 17 gm Documented by: Saccharomyces Boulardii (Florastor) 500 mg PO BID [facility] Last Admin: 03/02/20 20:22 Dose: 500 mg Documented by: Senna/Docusate Sodium (Senna Plus) 1 tab PO DAILY [facility] Last Admin: 03/02/20 08:44 Dose: 1 tab Documented by: Senna/Docusate Sodium (Senna Plus) 1 tab PO TID PRN PRN Reason: Constipation Sertraline HCl (Zoloft) 50 mg PO BEDTIME [facility] Last Admin: 03/02/20 20:25 Dose: 50 mg Documented by: Simvastatin (Zocor) 20 mg PO BEDTIME [facility] Last Admin: 03/02/20 20:21 Dose: 20 mg Documented by: Sodium Chloride (Saline Flush) 10 ml FLUSH ASDIRECTED PRN PRN Reason: Keep Vein Open Last Admin: 02/25/20 14:17 Dose: 10 ml Documented by: Terazosin HCl (Hytrin) 5 mg PO BID [facility] Last Admin: 03/02/20 20:24 Dose: 5 mg Documented by: Trazodone HCl (Trazodone) 150 mg PO BEDTIME [facility] Last Admin: 03/02/20 20:24 Dose: 150 mg Documented by: Trolamine Salicylate (Aspercreme 10%) 0 gm TOP Q4H PRN PRN Reason: Pain (mild 1-3) Vancomycin HCl (Pharmacy To Dose - Vancomycin) 1 dose .XX ASDIRECTED PRN PRN Reason: RX TO DOSE VANCO Discontinued Medications Bisacodyl (Dulcolax) 10 mg RECTAL ONETIME ONE Stop: 03/02/20 17:00 Last Admin: 03/02/20 17:11 Dose: 10 mg Documented by: Fentanyl (Duragesic) 100 mcg TRDERM Q72H [facility] Hydromorphone HCl (Dilaudid) 2 mg PO Q6H [facility] Last Admin: 02/26/20 08:52 Dose: 2 mg Documented by: Sodium Chloride (Normal Saline) 1,000 mls @ 100 mls/hr IV BOLUS ONE Stop: 02/25/20 23:05 Last Admin: 02/25/20 21:13 Dose: Not Given Documented by: Sodium Chloride (Normal Saline) 1,000 mls @ 150 mls/hr IV NOW STA Stop: 02/25/20 21:19 Last Admin: 02/25/20 16:16 Dose: 150 mls/hr Documented by: Sodium Chloride (Normal Saline) 100 mls @ 75 mls/hr IV ASDIRECTED [facility] Last Admin: 02/25/20 15:22 Dose: 75 mls/hr Documented by: Ceftriaxone Sodium 1 gm/ (Sodium Chloride) 100 mls @ 200 mls/hr IV ONETIME ONE Stop: 02/25/20 16:17 Last Admin: 02/25/20 21:13 Dose: Not Given Documented by: Levofloxacin/Dextrose 750 mg/ (Premix) 150 mls @ 100 mls/hr IV ONETIME ONE Stop: 02/25/20 17:22 Last Admin: 02/25/20 16:18 Dose: 100 mls/hr Documented by: Sodium Chloride (Normal Saline) 1,000 mls @ 100 mls/hr IV ASDIRECTED [facility] Last Admin: 02/27/20 09:08 Dose: 100 mls/hr Documented by: Vancomycin HCl 1 gm/ Sodium (Chloride) 250 mls @ 250 mls/hr IV Q12H [facility] Last Admin: 02/27/20 12:01 Dose: 250 mls/hr Documented by: Vancomycin HCl 1.25 gm/ Sodium (Chloride) 250 mls @ 250 mls/hr IV Q12H [facility] Stop: 02/28/20 13:00 Last Admin: 02/28/20 11:49 Dose: 250 mls/hr Documented by: Sodium Chloride (Normal Saline) 1,000 mls @ 25 mls/hr IV ASDIRECTED [facility] Last Admin: 02/27/20 21:33 Dose: 25 mls/hr Documented by: Vancomycin HCl 1 gm/Vancomycin HCl 250 mg/ Sodium Chloride 250 mls @ 250 mls/hr IV Q12H [facility] Last Admin: 02/28/20 14:38 Dose: Not Given Documented by: Vancomycin HCl 1 gm/Vancomycin HCl 250 mg/ Sodium Chloride 250 mls @ 250 mls/hr IV Q12H [facility] Stop: 02/29/20 13:00 Last Admin: 02/29/20 11:07 Dose: 250 mls/hr Documented by: Magnesium Sulfate (Magnesium Sulfate In Water Premix) 2 gm in 50 mls @ 25 mls/hr IV ONETIME ONE Stop: 02/28/20 14:31 Last Admin: 02/28/20 16:22 Dose: 25 mls/hr Documented by: Magnesium Sulfate (Magnesium Sulfate In Water Premix) 2 gm in 50 mls @ 25 mls/hr IV ONETIME ONE Stop: 02/29/20 09:58 Last Admin: 02/29/20 09:05 Dose: 25 mls/hr Documented by: Iopamidol (Isovue-370 (76%)) 100 ml IVPUSH ONETIME ONE Stop: 02/25/20 14:44 Last Admin: 02/25/20 15:22 Dose: 100 ml Documented by: Miscellaneous Information (Remove Patch) 1 ea TRDERM Q72H [facility] Vanco Trough 0 each .XX ONETIME ONE Stop: 02/27/20 10:01 Last Admin: 02/27/20 13:30 Dose: Not Given Documented by: Sodium Chloride (Saline Flush) 10 ml FLUSH ONETIME PRN PRN Reason: IV FLUSH Last Admin: 02/25/20 15:22 Dose: 10 ml Documented by: - Exam Quality Assessment: Reports: DVT Prophylaxis. Denies: Supplemental Oxygen General: Reports: Alert, Oriented, Cooperative, No Acute Distress HEENT: Reports: Pupils Equal, Pupils Reactive, Mucous Membr. Moist/[place] Neck: Reports: Supple, Trachea Midline Lungs: Reports: Clear to Auscultation, Normal Respiratory Effort Cardiovascular: Reports: Regular Rate, Regular Rhythm GI/Abdominal Exam: Normal Bowel Sounds, Soft, Non-Tender, No Distention (Male) Exam: Deferred Rectal (Males) Exam: Deferred Extremities: Non-Tender, No Pedal Edema, Normal Capillary Refill, Limited Range of Motion (underlying progressive supranuclear palsy). No: Normal Inspection Skin: Reports: Warm, Dry, Intact Neurological: Reports: No New Focal Deficit Psy/Mental Status: Reports: Alert
[2020-03-03] MEDS: Gabapentin 100 MG Cap PO SCH (09:17)
[2020-03-03] MEDS: Celecoxib 100 MG Cap PO SCH (09:17)
[2020-03-03] MEDS: Magnesium Oxide 400 MG Tab PO SCH (09:18)
[2020-03-03] MEDS: Losartan 50 MG Tab PO SCH (09:18)
[2020-03-03] MEDS: oxyCODONE 5 MG Tab PO PRN (09:18)
[2020-03-03] MEDS: Cyclobenzaprine 10 MG Tab PO SCH (09:18)
[2020-03-03] MEDS: Terazosin 5 MG Cap PO SCH (09:18)
[2020-03-03] MEDS: Baclofen 10 MG Tab PO SCH ×2 (09:19→12:52)
[2020-03-03] MEDS: Carbidopa/Levodopa 25-100 MG Tab PO SCH ×2 (09:19→12:51)
[2020-03-03] MEDS: Hydrochlorothiazide 12.5 MG Cap PO SCH (09:19)
[2020-03-03] MEDS: guaiFENesin 600 MG Tab.ER PO SCH (09:19)
[2020-03-03] MEDS: busPIRone 15 MG Tab PO SCH (09:19)
[2020-03-03] MEDS: Saccharomyces Boulardii (Probiotic) 250 MG Cap PO SCH (09:19)
[2020-03-03] MEDS: Enoxaparin 40 MG/0.4 ML Syringe SUBCUT SCH (09:19)
[2020-03-03] MEDS: Polyethylene Glycol 3350 Powder 17 GM Packet PO SCH (09:20)
[2020-03-03] MEDS: Vancomycin 1 GM, Vancomycin 500 MG in Sodium Chloride 0.9% 500 ML IV SCH (10:37)
[2020-03-03] MEDS: HYDROmorphone 2 MG Tab PO PRN (11:31)
== END 2020-03-03 13:10 | DRG 194 ==
LOC: JD.ED 12:51 → JD.MS 16:37
PROVIDERS: ADMIT Family Medicine; ATTEND Family Medicine
DX: J18.9 Pneumonia, unspecified organism (principal); E87.2 Acidosis; G23.1 Progressive supranuclear ophthalmoplegia [Steele-Richardson-Olszewski]; J90 Pleural effusion, not elsewhere classified; N40.0 Benign prostatic hyperplasia without lower urinary tract symptoms; R89.9 Unspecified abnormal finding in specimens from other organs, systems and tissues; E78.5 Hyperlipidemia, unspecified; R09.02 Hypoxemia; D72.829 Elevated white blood cell count, unspecified; E88.09 Other disorders of plasma-protein metabolism, not elsewhere classified; Y95 Nosocomial condition; R13.10 Dysphagia, unspecified; H54.7 Unspecified visual loss; E78.00 Pure hypercholesterolemia, unspecified; I10 Essential (primary) hypertension; K21.9 Gastro-esophageal reflux disease without esophagitis; K44.9 Diaphragmatic hernia without obstruction or gangrene; K59.09 Other constipation; N40.1 Benign prostatic hyperplasia with lower urinary tract symptoms; R33.8 Other retention of urine; M19.90 Unspecified osteoarthritis, unspecified site; G89.29 Other chronic pain; M13.0 Polyarthritis, unspecified; M54.9 Dorsalgia, unspecified; F32.9 Major depressive disorder, single episode, unspecified; E83.42 Hypomagnesemia; Z99.3 Dependence on wheelchair; F41.9 Anxiety disorder, unspecified; Z87.01 Personal history of pneumonia (recurrent); Z87.440 Personal history of urinary (tract) infections; Z86.14 Personal history of Methicillin resistant Staphylococcus aureus infection; G20 Parkinson's disease; R47.9 Unspecified speech disturbances; G47.00 Insomnia, unspecified; Z79.899 Other long term (current) drug therapy; Z20.822 Contact with and (suspected) exposure to COVID-19
CPT/HCPCS: 0240U; 36415; 36600; 71045; 71275; 80048; 80053; 80202; 81001; 82803; 83605; 83735; 83880; 84100; 84484; 85007; 85025; 85027; 85379; 85610; 86140; 87040; 94760; 94761; 96365; 99285; 99222; 99232; 99233; 99239; A9270-GY; J0692; J1650; J1956; J3370; J3475; J7030; J7040; J7050; Q9967; U0002

== ENCOUNTER 2020-04-18 15:49 | Inpatient (IN) | payer MEDICARE, OTHER ==
--- NOTE | 2020-04-18 16:20 | EDM.PDOC ---
ED HPI GENERAL MEDICAL PROBLEM - General Chief Complaint: Respiratory Problem Stated Complaint: [facility] Time Seen by Provider: 04/18/20 15:49 - History of Present Illness INITIAL COMMENTS - FREE TEXT/NARRATIVE: 64-year-old male sent over from [facility] facility via the ambulance with O2 saturation of 72%. The patient is unable to give any sort of a history. He was found to be hypoxic at the long term. He was placed on supplemental oxygen and EMS was called. EMS got his O2 saturation in the low 90s with a full mask. He has a history of recurrent bouts of pneumonia. 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 - Related Data Allergies Allergy/AdvReac Type Severity Reaction Status Date / Time No Known Allergies Allergy Verified 04/18/20 16:10 Home Meds: Home Meds Acetaminophen [Tylenol Arthritis Pain] 650 mg PO Q6H PRN #120 dose 10/22/19 [Rx] Carbidopa/Levodopa [Carbidopa-Levodopa 25-100] 1 tab PO QID #120 tablet 10/22/19 [Rx] Gabapentin [Neurontin] 200 mg PO TID #120 dose 10/22/19 [Rx] Losartan [Cozaar] 50 mg PO DAILY #30 dose 10/22/19 [Rx] Magnesium Oxide [Magnesium] 400 mg PO BID #60 dose 10/22/19 [Rx] Ondansetron [Zofran ODT] 4 mg PO Q6H PRN #20 tab.dis 10/22/19 [Rx] Simvastatin 20 mg PO BEDTIME #30 dose 10/22/19 [Rx] Terazosin [Hytrin] 5 mg PO BID #60 cap 10/22/19 [Rx] busPIRone [Buspar] 15 mg PO BID #60 tablet 10/22/19 [Rx] Baclofen 10 mg PO QID 12/14/19 [History] LORazepam [Ativan] 1 mg PO 12,16 12/14/19 [History] Sennosides/Docusate Sodium [Senna Plus 8.6-50 mg Tablet] 1 tab PO DAILY 12/14/19 [History] Sennosides/Docusate Sodium [Senna Plus Tablet] 1 each PO TID PRN 12/14/19 [History] Trolamine Salicylate/Aloe Vera [Aspercreme 10% Cream] 2 gm TP Q4H PRN 12/14/19 [History] hydroCHLOROthiazide [Hydrochlorothiazide] 12.5 mg PO DAILY 12/14/19 [History] polyethylene glycoL 3350 [MiraLAX] 17 gram PO DAILY 12/14/19 [History] Remove Patch 1 ea TRDERM Q72H each 12/20/19 [Rx] Celecoxib 200 mg PO DAILY 02/11/20 [History] Cyclobenzaprine [Flexeril] 5 mg PO TID 02/11/20 [History] LORazepam [Ativan] 1 mg PO 02/11/20 [History] Sertraline [Zoloft] 75 mg PO BEDTIME 02/11/20 [History] guaiFENesin [Mucinex] 600 mg PO TID 02/11/20 [History] traZODone HCl [Trazodone HCl] 150 mg PO BEDTIME 02/11/20 [History] HYDROmorphone [Dilaudid] 2 mg PO Q6H PRN 02/26/20 [History] fentaNYL [Duragesic] 125 mcg TRDERM Q72H 04/18/20 [History] Past Medical History HEENT History: Reports: Impaired Vision Other HEENT History: Wears glasses Cardiovascular History: Reports: High Cholesterol, Hypertension Respiratory History: Reports: Intubation, Previous, Pneumonia, Recurrent Gastrointestinal History: Reports: Chronic Constipation, GERD, Hiatal Hernia Genitourinary History: Reports: BPH, Retention, Urinary, UTI, Recurrent Musculoskeletal History: Reports: Arthritis, Back Pain, Chronic, Osteoarthritis Other Musculoskeletal History: fall; fractured ribs; muscle spasms; polyarthritis; progressive supranuclear opthalmoplegia; cervical disc Neurological History: Reports: Parkinson's, Speech Problems, Vertigo Other Neuro History: 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 Psychiatric History: Reports: Anxiety, Depression Other Psychiatric History: insomnia - Infectious Disease History Infectious Disease History: Reports: MRSA - Past Surgical History HEENT Surgical History: Reports: None Cardiovascular Surgical History: Reports: None Respiratory Surgical History: Reports: None GI Surgical History: Reports: None Neurological Surgical History: Reports: None Musculoskeletal Surgical History: Reports: None - History Comment History Comment: Patient has chronic severe generalized pain. He is currently on Dilaudid 2 mg 3 times daily and fentanyl patch. 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 Social & Family History - Family History Family Medical History: No Pertinent Family History - Caffeine Use Caffeine Use: Reports: None - Living Situation & Occupation Living situation: Reports: Single, Alone, Extended Care Facility ([facility] Occupation: Disabled ED ROS GENERAL - Review of Systems Review Of Systems: Unable To Obtain Reason Not Obtained: Patient is unable to answer questions at this time ED EXAM, GENERAL - Physical Exam Exam: See Below Exam Limited By: Other (Patient is very limited in his ability to move his extremities and is very rigid at this time.) General Appearance: No Apparent Distress Eye Exam: Bilateral Eye: Normal Inspection (His eyes closed most the time but he will open them somewhat and what is visualized appears normal) Ears: Normal External Exam, Normal Canal, Hearing Grossly Normal, Normal TMs Nose: Normal Inspection, Normal Mucosa, No Blood Throat/Mouth: Normal Inspection, Normal Lips, Normal Teeth, Normal Gums, Other (Semi-dry mucosa) Head: Atraumatic, Normocephalic Neck: Normal Inspection. No: Lymphadenopathy (L), Lymphadenopathy (R) Respiratory/Chest: Lungs Clear, Normal Breath Sounds, Other (With his neuromuscular disease I am not convinced he is getting full respirations) Cardiovascular: Regular Rate, Rhythm, No Edema, No Murmur GI/Abdominal: Normal Bowel Sounds, Soft, Other (No obvious tenderness with palpation) Back Exam: Normal Inspection. No: CVA Tenderness (L), CVA Tenderness (R) Extremities: Normal Inspection, No Pedal Edema Neurological: Slow to Respond Course - Vital Signs Last Recorded V/S: Last Vital Signs Temp 36.7 C 04/18/20 15:58 Pulse 93 04/18/20 15:58 Resp 24 H 04/18/20 15:58 BP 120/85 04/18/20 15:58 Pulse Ox 88 L 04/18/20 15:58 - Orders/Labs/Meds Orders: Active Orders 24 hr Category Date Time Status CULTURE BLOOD [BC] Stat Lab 04/18/20 16:32 Received CULTURE BLOOD [BC] Stat Lab 04/18/20 16:42 Received Sodium Chloride 0.9% [Normal Saline] 1,000 ml Med 04/18/20 17:30 Active IV ASDIRECTED Sodium Chloride 0.9% [Normal Saline] 100 ml Med 04/18/20 18:15 Active IV ASDIRECTED Sodium Chloride 0.9% [Saline Flush] Med 04/18/20 18:15 Active 10 ml FLUSH ASDIRECTED Blood Culture x2 Reflex Set [OM.PC] Stat Oth 04/18/20 16:06 Ordered Medication Orders Sodium Chloride (Normal Saline) 1,000 mls @ 100 mls/hr IV ASDIRECTED JASPER Last Admin: 04/18/20 17:55 Dose: 100 mls/hr Documented by: DWAYNE Sodium Chloride (Normal Saline) 100 mls @ 60 mls/hr IV ASDIRECTED JASPER Last Admin: 04/18/20 18:37 Dose: 60 mls/hr Documented by: [place] Sodium Chloride (Saline Flush) 10 ml FLUSH ASDIRECTED JASPER Last Admin: 04/18/20 18:37 Dose: 10 ml Documented by: BUSCGRE Labs: Laboratory Tests 04/18/20 04/18/20 04/18/20 Range/Units 16:32 16:32 16:32 WBC 5.80 (4.23-9.07) K/mm3 RBC 4.76 (4.63-6.08) M/mm3 Hgb 13.4 L (13.7-17.5) gm/dl Hct 42.5 (40.1-51.0) % MCV 89.3 (79.0-92.2) fl MCH 28.2 (25.7-32.2) pg MCHC 31.5 L (32.2-35.5) g/dl RDW Std Deviation 43.7 (35.1-43.9) fL Plt Count 110 L D (163-337) K/mm3 MPV 11.6 (9.4-12.3) fl Neut % (Auto) 69.3 H (34.0-67.9) % Lymph % (Auto) 22.2 (21.8-53.1) % [place] % (Auto) 6.4 (5.3-12.2) % Eos % (Auto) 1.7 (0.8-7.0) Baso % (Auto) 0.2 (0.1-1.2) % Neut # (Auto) 4.02 (1.78-5.38) K/mm3 Lymph # (Auto) 1.29 L (1.32-3.57) K/mm3 [place] # (Auto) 0.37 (0.30-0.82) K/mm3 Eos # (Auto) 0.10 (0.04-0.54) K/mm3 Baso # (Auto) 0.01 (0.01-0.08) K/mm3 Manual Slide Review Not Reportable D-Dimer, Quantitative (0.19-0.50) mg/L Sodium 142 (136-145) mEq/L Potassium 4.0 (3.5-5.1) mEq/L Chloride 103 (98-107) mEq/L Carbon Dioxide 31 (21-32) mEq/L Anion Gap 12.0 (5-15) BUN 17 (7-18) mg/dL Creatinine 0.6 L (0.7-1.3) mg/dL Est Cr Clr Drug Dosing 114.66 mL/min Estimated GFR (MDRD) > 60 (>60) mL/min BUN/Creatinine Ratio 28.3 H (14-18) Glucose 92 (80-115) mg/dL Lactic Acid 0.7 (0.4-2.0) mmol/L Calcium 8.7 (8.5-10.1) mg/dL Magnesium 1.8 (1.8-2.4) mg/dl Total Bilirubin 0.6 (0.2-1.0) mg/dL AST 20 (15-37) U/L ALT 11 L (16-63) U/L Alkaline Phosphatase 71 (46-116) U/L Total Protein 7.4 (6.4-8.2) g/dl Albumin 3.4 (3.4-5.0) g/dl Globulin 4.0 gm/dL Albumin/Globulin Ratio 0.9 L (1-2) Urine Color (Yellow) Urine Appearance (Clear) Urine pH (5.0-8.0) Ur Specific [place] (1.005-1.030) Urine Protein (Negative) Urine Glucose (UA) (Negative) Urine Ketones (Negative) Urine Occult Blood (Negative) Urine Nitrite (Negative) Urine Bilirubin (Negative) Urine Urobilinogen (0.2-1.0) Ur Leukocyte Esterase (Negative) Urine RBC (0-5) /hpf Urine WBC (0-5) /hpf Ur Squamous Epith Cells (0-5) /hpf Urine Bacteria (FEW) /hpf Urine Mucus (FEW) /hpf 04/18/20 04/18/20 Range/Units 16:32 17:55 WBC (4.23-9.07) K/mm3 RBC (4.63-6.08) M/mm3 Hgb (13.7-17.5) gm/dl Hct (40.1-51.0) % MCV (79.0-92.2) fl MCH (25.7-32.2) pg MCHC (32.2-35.5) g/dl RDW Std Deviation (35.1-43.9) fL Plt Count (163-337) K/mm3 MPV (9.4-12.3) fl Neut % (Auto) (34.0-67.9) % Lymph % (Auto) (21.8-53.1) % [place] % (Auto) (5.3-12.2) % Eos % (Auto) (0.8-7.0) Baso % (Auto) (0.1-1.2) % Neut # (Auto) (1.78-5.38) K/mm3 Lymph # (Auto) (1.32-3.57) K/mm3 [place] # (Auto) (0.30-0.82) K/mm3 Eos # (Auto) (0.04-0.54) K/mm3 Baso # (Auto) (0.01-0.08) K/mm3 Manual Slide Review D-Dimer, Quantitative 1.13 H (0.19-0.50) mg/L Sodium (136-145) mEq/L Potassium (3.5-5.1) mEq/L Chloride (98-107) mEq/L Carbon Dioxide (21-32) mEq/L Anion Gap (5-15) BUN (7-18) mg/dL Creatinine (0.7-1.3) mg/dL Est Cr Clr Drug Dosing mL/min Estimated GFR (MDRD) (>60) mL/min BUN/Creatinine Ratio (14-18) Glucose (80-115) mg/dL Lactic Acid (0.4-2.0) mmol/L Calcium (8.5-10.1) mg/dL Magnesium (1.8-2.4) mg/dl Total Bilirubin (0.2-1.0) mg/dL AST (15-37) U/L ALT (16-63) U/L Alkaline Phosphatase (46-116) U/L Total Protein (6.4-8.2) g/dl Albumin (3.4-5.0) g/dl Globulin gm/dL Albumin/Globulin Ratio (1-2) Urine Color [place] H (Yellow) Urine Appearance Clear (Clear) Urine pH 6.5 (5.0-8.0) Ur Specific [place] 1.025 (1.005-1.030) Urine Protein Trace H (Negative) Urine Glucose (UA) Negative (Negative) Urine Ketones Negative (Negative) Urine Occult Blood Negative (Negative) Urine Nitrite Negative (Negative) Urine Bilirubin Negative (Negative) Urine Urobilinogen 0.2 (0.2-1.0) Ur Leukocyte Esterase Negative (Negative) Urine RBC 0-5 (0-5) /hpf Urine WBC 0-5 (0-5) /hpf Ur Squamous Epith Cells 0-5 (0-5) /hpf Urine Bacteria Few (FEW) /hpf Urine Mucus Few (FEW) /hpf Meds: Medications Generic Name Dose Route Start Last Admin Trade Name Freq PRN Reason Stop Dose Admin Sodium Chloride 1,000 mls @ 100 mls/hr 04/18/20 17:30 04/18/20 17:55 Normal Saline IV 100 mls/hr ASDIRECTED JASPER Administration Sodium Chloride 100 mls @ 60 mls/hr 04/18/20 18:15 04/18/20 18:37 Normal Saline IV 60 mls/hr ASDIRECTED JASPER Administration Sodium Chloride 10 ml 04/18/20 18:15 04/18/20 18:37 Saline Flush FLUSH 10 ml ASDIRECTED JASPER Administration Discontinued Medications Generic Name Dose Route Start Last Admin Trade Name Freq PRN Reason Stop Dose Admin Iopamidol 100 ml 04/18/20 18:09 04/18/20 18:37 Isovue-370 (76%) IVPUSH 04/18/20 18:10 100 ml ONETIME ONE Administration - Re-Assessments/Exams Free Text/Narrative Re-Assessment/Exam: 04/18/20 17:49 Chest x-ray does not look that impressive for somebody that is this hypoxic my main concern is his neuromuscular decline secondary to his progressive supranuclear palsy is causing a lot of this. I did discuss the case with Jeri, his sister, and also his power of banking attorney. She again confirms he is a DNR does not want be placed on a ventilator I expressed my concerns directly to her that now is not talking he does wake up but is not able to talk. And I am nervous that his hypoxia could be 2 to worsening progressive neuromuscular failure. She understands this and affirms his wishes absolutely under no certain terms that he to be intubated or placed on life support. She is more for treating what can be treated but the primary goal should be keeping him comfortable. 04/18/20 18:53 Dr. Andrade kindly accepts this patient we are waiting the CTA report. 04/18/20 19:24 CTA report shows increasing consolidation within the left lung base compared to prior studies most consistent with aspiration type pneumonia. This is a typical pattern for him. Small stable pleural effusions also noted. I did relay this information to . Departure - Departure Time of Disposition: 18:52 Disposition: Admitted As Inpatient 68 Clinical Impression: Progressive supranuclear palsy - Discharge Information Referrals: Nik Hughes MD [Primary Care Provider] - Forms: ED Department Discharge Sepsis Event Note (ED) - Evaluation Sepsis Screening Result: Possible Severe Sepsis Risk - Focused Exam Vital Signs: Vital Signs Temp Pulse Resp BP Pulse Ox 04/18/20 15:58 36.7 C 93 24 H 120/85 88 L - My Orders Last 24 Hours: My Active Orders 04/18/20 16:06 Blood Culture x2 Reflex Set [OM.PC] Stat 04/18/20 16:32 CULTURE BLOOD [BC] Stat 04/18/20 16:42 CULTURE BLOOD [BC] Stat 04/18/20 17:30 Sodium Chloride 0.9% [Normal Saline] 1,000 ml IV ASDIRECTED 04/18/20 18:15 Sodium Chloride 0.9% [Normal Saline] 100 ml IV ASDIRECTED Sodium Chloride 0.9% [Saline Flush] 10 ml FLUSH ASDIRECTED - Assessment/Plan Last 24 Hours: My Active Orders 04/18/20 16:06 Blood Culture x2 Reflex Set [OM.PC] Stat 04/18/20 16:32 CULTURE BLOOD [BC] Stat 04/18/20 16:42 CULTURE BLOOD [BC] Stat 04/18/20 17:30 Sodium Chloride 0.9% [Normal Saline] 1,000 ml IV ASDIRECTED 04/18/20 18:15 Sodium Chloride 0.9% [Normal Saline] 100 ml IV ASDIRECTED Sodium Chloride 0.9% [Saline Flush] 10 ml FLUSH ASDIRECTED
[2020-04-18] MEDS ORDERED: Sodium Chloride 0.9% 1,000 ML IV SCH (17:30)
--- NOTE | 2020-04-18 17:35 | CR ---
Chest: Semi-upright view of the chest was obtained. Comparison: Prior chest x-ray of 02/25/20 Increased density behind the left heart is seen. This appears to be fairly stable from prior exams. Slight blunting of the lateral left costophrenic angle is seen compatible with stable pleural effusion. Lungs otherwise are clear with no acute parenchymal change. Heart size is stable. Upper mediastinum is stable. Scattered degenerative change within the spine with several old left lower rib fractures are noted. Impression: 1. Multiple findings as noted above. 2. Nothing acute is definitely appreciated from prior chest x-ray. Diagnostic code #2
[2020-04-18] MEDS ORDERED: Iopamidol 755 Mg/ML 100 ML Bottle IVPUSH ONE (18:09)
[2020-04-18] MEDS ORDERED: Sodium Chloride 0.9% 100 ML IV SCH (18:15)
[2020-04-18] MEDS ORDERED: Sodium Chloride 0.9% 10 ML Syringe FLUSH SCH (18:15)
--- NOTE | 2020-04-18 19:12 | CT ---
CT chest Technique: Multiple axial sections were obtained from above the lung apices inferiorly through the lung base. Intravenous contrast was utilized. Study was performed as a pulmonary angiogram protocol. Comparison: Prior CT chest of 02/25/20. Findings: Pulmonary arteries are moderately well opacified. No discrete filling defects are appreciated to indicate pulmonary embolism. Thoracic aorta shows no aneurysm. Small scattered lymph nodes are seen which are believed to be within normal limits. Small portion of the visualized upper abdominal structures show no discrete abnormality. Minimal left-sided pleural effusion is noted. Consolidating density is noted within the left lung base. This density has increased in prominence from previous exam. Lesser interstitial change is seen within the left upper and left lower lung which also is slightly increased from previous exam. Right lung shows no definite acute parenchymal change. Impression: 1. Increasing consolidation with the left lung base from prior study. Increasing interstitial change also seen within the left lung. Please correlate if patient has symptoms of aspiration or pneumonia. Small stable pleural effusion is seen. 2. No findings of pulmonary embolism. 3. No other acute abnormality is appreciated. Diagnostic code #3
[2020-04-18] MEDS ORDERED: Ondansetron 4 MG/2 ML SDV IV PRN (19:25)
[2020-04-18] MEDS ORDERED: Promethazine 12.5 MG in Sodium Chloride 0.9% 50 ML IV PRN (19:25)
[2020-04-18] MEDS ORDERED: Acetaminophen 650 MG Supp RECTAL PRN (19:25)
[2020-04-18] MEDS ORDERED: Albuterol/Ipratropium 3.0-0.5 MG/3 ML Neb Soln NEB PRN (19:25)
--- NOTE | 2020-04-18 19:25 | PCM.HP.2 ---
H&P History of Present Illness - General Date of Service: 04/18/20 Admit Problem/Dx: Aspiration pneumonia Source of Information: [facility] Records, Old Records, Provider, RN Notes Reviewed History Limitations: Reports: Altered Mental Status - History of Present Illness Initial Comments - Free Text/Narative: This is a 64 yo white male with past medical hx/o Impaired vision, hypertension, hyperlipidemia, aspiration pneumonia, recurrent pneumonia, chronic constipation, GERD, hiatal hernia, BPH, urinary retention, recurrent UTI, chronic back pain, osteoarthritis, history of falls, history of fractured ribs, chronic muscle spasm, polyarthritis, Parkinson's disease with speech problem, vertigo, 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 for the evaluation of hypoxia with O2 sat in the low 70s. EMS was called and at the scene, he was put on supplemental O2 immediately. His O2 sat improved in the 90s. Patient is altered and unable to provide history of present illness. He does carry a history of recurrent aspiration pneumonia. Patient work-up in the emergency department shows a CBC remarkable for hemoglobin of 13.4, MCHC of 31.5, platelet of 110, neutrophils of 69.2%, and l ymphocyte of 1.29. His D-dimer is elevated at 1.13. His chemistry is significant for creatinine of 0.6 and ALT of 11. His UA is not suggestive of urinary tract infection but notable for trace protein. In the emergency department, he has a stable blood pressure with normal temperature. His heart rate is within normal limits. However he is tachypneic with respiratory rate as high as 24 with O2 sat of 88% on 6 L nasal cannula. His chest CTA shows patchy pulmonary infiltrate in the left side with mild pleural effusion. Patient received initial treatment and work-up in the emergency department prior to coming in for further management of aspiration pneumonia. - Related Data Allergies/Adverse Reactions: Allergies Allergy/AdvReac Type Severity Reaction Status Date / Time No Known Allergies Allergy Verified 04/18/20 16:10 Home Medications: Home Meds Acetaminophen [Tylenol Arthritis Pain] 650 mg PO Q6H PRN #120 dose 10/22/19 [Rx] Carbidopa/Levodopa [Carbidopa-Levodopa 25-100] 1 tab PO QID #120 tablet 10/22/19 [Rx] Gabapentin [Neurontin] 200 mg PO TID #120 dose 10/22/19 [Rx] Losartan [Cozaar] 50 mg PO DAILY #30 dose 10/22/19 [Rx] Magnesium Oxide [Magnesium] 400 mg PO BID #60 dose 10/22/19 [Rx] Ondansetron [Zofran ODT] 4 mg PO Q6H PRN #20 tab.dis 10/22/19 [Rx] Simvastatin 20 mg PO BEDTIME #30 dose 10/22/19 [Rx] Terazosin [Hytrin] 5 mg PO BID #60 cap 10/22/19 [Rx] busPIRone [Buspar] 15 mg PO BID #60 tablet 10/22/19 [Rx] Baclofen 10 mg PO QID 12/14/19 [History] LORazepam [Ativan] 1 mg PO 12/14/19 [History] Sennosides/Docusate Sodium [Senna Plus 8.6-50 mg Tablet] 1 tab PO DAILY 12/14/19 [History] Sennosides/Docusate Sodium [Senna Plus Tablet] 1 each PO TID PRN 12/14/19 [History] Trolamine Salicylate/Aloe Vera [Aspercreme 10% Cream] 2 gm TP Q4H PRN 12/14/19 [History] hydroCHLOROthiazide [Hydrochlorothiazide] 12.5 mg PO DAILY 12/14/19 [History] polyethylene glycoL 3350 [MiraLAX] 17 gram PO DAILY 12/14/19 [History] Remove Patch 1 ea TRDERM Q72H each 12/20/19 [Rx] Celecoxib 200 mg PO DAILY 02/11/20 [History] Cyclobenzaprine [Flexeril] 5 mg PO TID 02/11/20 [History] LORazepam [Ativan] 1 mg PO 02/11/20 [History] Sertraline [Zoloft] 75 mg PO BEDTIME 02/11/20 [History] guaiFENesin [Mucinex] 600 mg PO TID 02/11/20 [History] traZODone HCl [Trazodone HCl] 150 mg PO BEDTIME 02/11/20 [History] HYDROmorphone [Dilaudid] 2 mg PO Q6H PRN 02/26/20 [History] fentaNYL [Duragesic] 125 mcg TRDERM Q72H 04/18/20 [History] Past Medical History HEENT History: Reports: Impaired Vision Other HEENT History: Wears glasses Cardiovascular History: Reports: High Cholesterol, Hypertension Respiratory History: Reports: Intubation, Previous, Pneumonia, Recurrent Gastrointestinal History: Reports: Chronic Constipation, GERD, Hiatal Hernia Genitourinary History: Reports: BPH, Retention, Urinary, UTI, Recurrent Musculoskeletal History: Reports: Arthritis, Back Pain, Chronic, Osteoarthritis Other Musculoskeletal History: fall; fractured ribs; muscle spasms; polyarthritis; progressive supranuclear opthalmoplegia; cervical disc Neurological History: Reports: Parkinson's, Speech Problems, Vertigo Other Neuro History: 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 Psychiatric History: Reports: Anxiety, Depression Other Psychiatric History: insomnia - Infectious Disease History Infectious Disease History: Reports: MRSA - Past Surgical History HEENT Surgical History: Reports: None Cardiovascular Surgical History: Reports: None Respiratory Surgical History: Reports: None GI Surgical History: Reports: None Neurological Surgical History: Reports: None Musculoskeletal Surgical History: Reports: None - History Comment History Comment: Patient has chronic severe generalized pain. He is currently on Dilaudid 2 mg 3 times daily and fentanyl patch. 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 Social & Family History - Family History Family Medical History: No Pertinent Family History - Tobacco Use Tobacco Use Status *Q: Never Tobacco User Second Hand Smoke Exposure: No - Caffeine Use Caffeine Use: Reports: None - Recreational Drug Use Recreational Drug Use: No - Living Situation & Occupation Living situation: Reports: Single, Alone, Extended Care Facility ([facility] Occupation: Disabled H&P Review of Systems - Review of Systems: Review Of Systems: Unable To Obtain Reason Not Obtained: AMS Pulmonary: Reports: Other (hypoxic ) Exam - Exam Exam: See Below - Vital Signs Vital Signs: Last Vital Signs Temp 36.7 C 04/18/20 15:58 Pulse 93 04/18/20 15:58 Resp 24 H 04/18/20 15:58 BP 120/85 04/18/20 15:58 Pulse Ox 88 L 04/18/20 15:58 Weight: 63.503 kg - Exam Quality Assessment: Supplemental Oxygen General: Sedated, Lethargic HEENT: Nares Patent, Normal Nasal Septum Neck: Supple, Trachea Midline Lungs: Clear to Auscultation, Decreased Breath Sounds, Other (tachypneic) Cardiovascular: Regular Rate, Regular Rhythm GI/Abdominal Exam: Normal Bowel Sounds, Non-Tender, No Organomegaly, No Distention, No Abnormal Bruit. No: Soft (Male) Exam: Deferred Rectal (Males) Exam: Deferred Back Exam: Normal Inspection Extremities: Normal Inspection, Non-Tender, No Pedal Edema, Normal Capillary Refill Peripheral Pulses: 2+: Dorsalis Pedis (L), Dorsalis Pedis (R) Skin: Warm, Dry, Intact Physical Exam Comments:: Examination is limited due to altered mental status. He mumbles with a sternal rub. He is not able to open his eyes and follow simple commands. - Patient Data Lab Results Last 24 hrs: Laboratory Results - last 24 hr 04/18/20 04/18/20 04/18/20 Range/Units 16:32 16:32 16:32 WBC 5.80 (4.23-9.07) K/mm3 RBC 4.76 (4.63-6.08) M/mm3 Hgb 13.4 L (13.7-17.5) gm/dl Hct 42.5 (40.1-51.0) % MCV 89.3 (79.0-92.2) fl MCH 28.2 (25.7-32.2) pg MCHC 31.5 L (32.2-35.5) g/dl RDW Std Deviation 43.7 (35.1-43.9) fL Plt Count 110 L D (163-337) K/mm3 MPV 11.6 (9.4-12.3) fl Neut % (Auto) 69.3 H (34.0-67.9) % Lymph % (Auto) 22.2 (21.8-53.1) % Ramsey % (Auto) 6.4 (5.3-12.2) % Eos % (Auto) 1.7 (0.8-7.0) Baso % (Auto) 0.2 (0.1-1.2) % Neut # (Auto) 4.02 (1.78-5.38) K/mm3 Lymph # (Auto) 1.29 L (1.32-3.57) K/mm3 Ramsey # (Auto) 0.37 (0.30-0.82) K/mm3 Eos # (Auto) 0.10 (0.04-0.54) K/mm3 Baso # (Auto) 0.01 (0.01-0.08) K/mm3 Manual Slide Review Not Reportable D-Dimer, Quantitative (0.19-0.50) mg/L Sodium 142 (136-145) mEq/L Potassium 4.0 (3.5-5.1) mEq/L Chloride 103 (98-107) mEq/L Carbon Dioxide 31 (21-32) mEq/L Anion Gap 12.0 (5-15) BUN 17 (7-18) mg/dL Creatinine 0.6 L (0.7-1.3) mg/dL Est Cr Clr Drug Dosing 114.66 mL/min Estimated GFR (MDRD) > 60 (>60) mL/min BUN/Creatinine Ratio 28.3 H (14-18) Glucose 92 (80-115) mg/dL Lactic Acid 0.7 (0.4-2.0) mmol/L Calcium 8.7 (8.5-10.1) mg/dL Magnesium 1.8 (1.8-2.4) mg/dl Total Bilirubin 0.6 (0.2-1.0) mg/dL AST 20 (15-37) U/L ALT 11 L (16-63) U/L Alkaline Phosphatase 71 (46-116) U/L Total Protein 7.4 (6.4-8.2) g/dl Albumin 3.4 (3.4-5.0) g/dl Globulin 4.0 gm/dL Albumin/Globulin Ratio 0.9 L (1-2) Urine Color (Yellow) Urine Appearance (Clear) Urine pH (5.0-8.0) Ur Specific Dix (1.005-1.030) Urine Protein (Negative) Urine Glucose (UA) (Negative) Urine Ketones (Negative) Urine Occult Blood (Negative) Urine Nitrite (Negative) Urine Bilirubin (Negative) Urine Urobilinogen (0.2-1.0) Ur Leukocyte Esterase (Negative) Urine RBC (0-5) /hpf Urine WBC (0-5) /hpf Ur Squamous Epith Cells (0-5) /hpf Urine Bacteria (FEW) /hpf Urine Mucus (FEW) /hpf 03/02/21 03/02/21 Range/Units 16:32 17:55 WBC (4.23-9.07) K/mm3 RBC (4.63-6.08) M/mm3 Hgb (13.7-17.5) gm/dl Hct (40.1-51.0) % MCV (79.0-92.2) fl MCH (25.7-32.2) pg MCHC (32.2-35.5) g/dl RDW Std Deviation (35.1-43.9) fL Plt Count (163-337) K/mm3 MPV (9.4-12.3) fl Neut % (Auto) (34.0-67.9) % Lymph % (Auto) (21.8-53.1) % Ramsey % (Auto) (5.3-12.2) % Eos % (Auto) (0.8-7.0) Baso % (Auto) (0.1-1.2) % Neut # (Auto) (1.78-5.38) K/mm3 Lymph # (Auto) (1.32-3.57) K/mm3 Ramsey # (Auto) (0.30-0.82) K/mm3 Eos # (Auto) (0.04-0.54) K/mm3 Baso # (Auto) (0.01-0.08) K/mm3 Manual Slide Review D-Dimer, Quantitative 1.13 H (0.19-0.50) mg/L Sodium (136-145) mEq/L Potassium (3.5-5.1) mEq/L Chloride (98-107) mEq/L Carbon Dioxide (21-32) mEq/L Anion Gap (5-15) BUN (7-18) mg/dL Creatinine (0.7-1.3) mg/dL Est Cr Clr Drug Dosing mL/min Estimated GFR (MDRD) (>60) mL/min BUN/Creatinine Ratio (14-18) Glucose (80-115) mg/dL Lactic Acid (0.4-2.0) mmol/L Calcium (8.5-10.1) mg/dL Magnesium (1.8-2.4) mg/dl Total Bilirubin (0.2-1.0) mg/dL AST (15-37) U/L ALT (16-63) U/L Alkaline Phosphatase (46-116) U/L Total Protein (6.4-8.2) g/dl Albumin (3.4-5.0) g/dl Globulin gm/dL Albumin/Globulin Ratio (1-2) Urine Color [place] H (Yellow) Urine Appearance Clear (Clear) Urine pH 6.5 (5.0-8.0) Ur Specific Dix 1.025 (1.005-1.030) Urine Protein Trace H (Negative) Urine Glucose (UA) Negative (Negative) Urine Ketones Negative (Negative) Urine Occult Blood Negative (Negative) Urine Nitrite Negative (Negative) Urine Bilirubin Negative (Negative) Urine Urobilinogen 0.2 (0.2-1.0) Ur Leukocyte Esterase Negative (Negative) Urine RBC 0-5 (0-5) /hpf Urine WBC 0-5 (0-5) /hpf Ur Squamous Epith Cells 0-5 (0-5) /hpf Urine Bacteria Few (FEW) /hpf Urine Mucus Few (FEW) /hpf Result Diagrams: 04/19/20 06:00 04/20/20 04:38 Sepsis Event Note - Evaluation Sepsis Screening Result: Sepsis Risk - Focused Exam Vital Signs: Vital Signs Temp Pulse Resp BP Pulse Ox 04/18/20 15:58 36.7 C 93 24 H 120/85 88 L Problem List Initiated/Reviewed/Updated: Yes Orders Last 24hrs: Active Orders 24 hr Category Date Time Status CULTURE BLOOD [BC] Stat Lab 04/18/20 16:32 Received CULTURE BLOOD [BC] Stat Lab 04/18/20 16:42 Received Sodium Chloride 0.9% [Normal Saline] 1,000 ml Med 04/18/20 17:30 Active IV ASDIRECTED Sodium Chloride 0.9% [Normal Saline] 100 ml Med 04/18/20 18:15 Active IV ASDIRECTED Sodium Chloride 0.9% [Saline Flush] Med 04/18/20 18:15 Active 10 ml FLUSH ASDIRECTED Blood Culture x2 Reflex Set [OM.PC] Stat Oth 04/18/20 16:06 Ordered Medication Orders Sodium Chloride (Normal Saline) 1,000 mls @ 100 mls/hr IV ASDIRECTED JASPER Last Admin: 04/18/20 17:55 Dose: 100 mls/hr Documented by: DWAYNE Sodium Chloride (Normal Saline) 100 mls @ 60 mls/hr IV ASDIRECTED [facility] Last Admin: 04/18/20 18:37 Dose: 60 mls/hr Documented by: [place] Sodium Chloride (Saline Flush) 10 ml FLUSH ASDIRECTED [facility] Last Admin: 04/18/20 18:37 Dose: 10 ml Documented by: [place] Assessment/Plan Comment:: This is a 64 yo white male with past medical hx/o Impaired vision, hypertension, hyperlipidemia, aspiration pneumonia, recurrent pneumonia, chronic constipation, GERD, hiatal hernia, BPH, urinary retention, recurrent UTI, chronic back pain, osteoarthritis, history of falls, history of fractured ribs, chronic muscle spasm, polyarthritis, Parkinson's disease with speech problem, vertigo, 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 for the evaluation of hypoxia with O2 sat in the low 70s. Assessment: Acute: AMS/Metabolic Encephalopathy Polypharmacy -Patient is altered -Risk factors: on multiple medications -He is on the following maintenance medications: baclofen 10 mg p.o. 4 times daily, carbidopa/levodopa 42452 tab p.o. 4 times daily, cyclobenzaprine 5 mg p.o. 3 times daily, fentanyl 125 mcg transdermal every 72 hours, gabapentin 200 mg p.o. 3 times daily, hydromorphone 2 mg p.o. every 6 as needed for pain, Ativan 1 mg p.o. twice daily, and Trazodone 150 mg p.o. at bedtime -Pain: Head CT scan without contrast and hold all home medications for now. Fall precautions. Acute on chronic aspiration pneumonia Acute respiratory failure requiring supplemental O2 Small pleural effusion, seen on previous imaging Tachypnea with RR in the mid 20s Hypoxia with O2 sat in the low 70s on RA; 88% on 6L NC in ED Elevated D-dimer, Chest CTA negative for PE -Risk factors: Progressive neuromuscular disease, supranuclear ophthalmoplegia, speech disorder, dysphagia, chronic sedation from multiple medications -Has underlying GERD as well as hiatal hernia -[facility] with O2 sat in the 70s -Initially put on simple mask by EMS -Currently on 6 L nasal cannula satting in the low 80s aspiration pneumonia -Chest CTA shows patchy pulmonary infiltrate and small pleural effusion -Plan: Sputum culture and gram stain, IV Zosyn for Aspiration, PRN decongestant/expectorant, IS/FV as directed, RT to assess and treat, PRN Bronchodilators, and Serial chest x-ray as indicated. Normocytic Hypochromic Anemia with Hgb of 13.4 grams -He carries a hx/o chronic anemia by EMR -No report of rectal bleeding or melena -He is not on antiplatelet or anti-coagulation Debility/Generalized Weakness -Secondary to progressive neurological disease -Will check for vit D and thyroid panel -PT/OT for deconditioning Chronic: Impaired vision, hypertension, hyperlipidemia, aspiration pneumonia, recurrent pneumonia, chronic constipation, GERD, hiatal hernia, BPH, urinary retention, recurrent UTI, chronic back pain, osteoarthritis, history of falls, history of fractured ribs, chronic muscle spasm, polyarthritis, Parkinson's disease with speech problem, vertigo, 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 Sepsis work up. Inflammatory markers. UA if not already done. Hold all home medications for now. Aspiration precautions. Head CT scan due to AMS. Fall precautions. Empiric IV Antibiotic with IV Zosyn. May consider adding IV Vancomycin given his hx/o MRSA in the past. IV fluids with D5NS 1L at 75cc/hr for hydration and sustenance. PT/OT when appropriate. Additional orders as above. Code status is DNR/DNI. Prognosis is guarded. Critical care time spent: > 30 mins
[2020-04-18] MEDS ORDERED: guaiFENesin/Dextromethorphan 100-10 MG/5 ML Soln 5 ML Cup PO PRN (19:31)
[2020-04-18] MEDS ORDERED: Trolamine Salicylate/Aloe Vera 10% Crm 85 GM Tube TOP PRN (19:36)
[2020-04-18] MEDS ORDERED: LORazepam 2 MG/ML SDV IVPUSH PRN ×2 (19:36)
[2020-04-18] MEDS ORDERED: Piperacillin/Tazobactam 4.5 GM in Sodium Chloride 0.9% 100 ML IV ONE (20:00)
--- NOTE | 2020-04-18 20:12 | CT ---
Head CT Technique: Multiple axial sections through the brain were obtained. Contrast is seen within the brain secondary to previous chest CT study performed on the same day. Comparison: No prior intracranial imaging is available. Findings: Intracerebral falx are prominent which is due to enhancement from the prior contrast administration. Ventricles are mildly prominent as well as sulci over the convexity. Patient is tilted within the head gantry. No abnormal parenchymal densities are seen. No evidence of definite intracranial hemorrhage. No midline shift or mass-effect is seen. Bone window settings were reviewed which show the visualized mastoid sinuses and paranasal sinuses to show nothing acute. No acute calvarial abnormality is appreciated. Impression: 1. Intracerebral falx are enhanced compatible with contrast given for previous CT chest study. This limits the noncontrast study of this exam. 2. Mild generalized atrophy is seen. 3. No definite acute intracranial abnormality is appreciated. Diagnostic code #2
[2020-04-18] MEDS: Dextrose 5%-0.9% NaCl 1,000 ML IV SCH (22:05)
[2020-04-19] MEDS: Piperacillin/Tazobactam 4.5 GM in Sodium Chloride 0.9% 100 ML IV SCH ×3 (04:17→20:09)
[2020-04-19] MEDS ORDERED: Lactated Ringers 1,000 ML IV ONE (05:26)
--- NOTE | 2020-04-19 07:14 | PCM.PN ---
- General Info Date of Service: 04/19/20 Admission Dx/Problem (Free Text): Aspiration pneumonia Subjective Update: In to see David. He is well-known to the service. Unfortunately due to his altered mental status his home medications need to be held and now he is having quite a bit of pain and spasticity. Will resume many of his home medications. In reviewing his chart it does appear that he was recently increased in his fentanyl patch dosing and this may have been the cause of some of this. He is alert and oriented now. Speech-language pathology just saw him and cleared him for pured diet and nectar thick liquids. He is mid 90% saturations on room air. Blood pressure has been improving although he was noted to have systolic readings in the 80s and very low 90s overnight. He was given a fluid bolus this morning and he is now 99 systolic. Will hold his BP meds today and possibly resume tomorrow pending BP trend. He remains on Zosyn. Unsure if he has an infection or if this is all because of oversedation. Procalcitonin is pending. WBC remains within normal limits. CRP is up to 16 although this is likely skewed given patient's baseline underlying neuromuscular disease. Clinically he is much improved. We will continue Zosyn for now and continue to monitor. Functional Status: Reports: Urinating, Incentive Spirometry, Other (Acapella). Denies: Pain Controlled (Catching up on p.o. medications), Tolerating Diet (Was n.p.o. [employer] just cleared for pured diet and nectar thick liquids), Ambulating (Baseline), New Symptoms - Review of Systems General: Reports: No Symptoms, Weakness. Denies: Fever, Fatigue, Malaise, Chills HEENT: Reports: No Symptoms. Denies: Headaches, Visual Changes Pulmonary: Reports: No Symptoms. Denies: Shortness of Breath, Pleuritic Chest Pain, Cough, Sputum, Wheezing Cardiovascular: Reports: No Symptoms. Denies: Chest Pain, Palpitations, Dyspnea on Exertion, Edema Gastrointestinal: Reports: No Symptoms. Denies: Abdominal Pain, Constipation, Diarrhea, Nausea, Vomiting Genitourinary: Reports: No Symptoms. Denies: Pain Musculoskeletal: Reports: Neck Pain (Chronic), Shoulder Pain, Arm Pain (Left), Back Pain, Leg Pain, Foot Pain Skin: Reports: No Symptoms. Denies: Cyanosis Neurological: Reports: Pre-Existing Deficit (Pre-existing spastic neurologic deficit), Trouble Speaking (Baseline ), Difficulty Walking (Baseline), Weakness, Gait Disturbance (Baseline). Denies: Confusion, Dizziness, Headache, Numbness, Seizure, Tingling Psychiatric: Reports: No Symptoms - Patient Data Vitals - Most Recent: Last Vital Signs Temp 98 F 04/19/20 04:00 Pulse 71 04/19/20 04:00 Resp 17 04/19/20 04:00 BP 99/49 L 04/19/20 04:00 Pulse Ox 97 04/19/20 06:10 Weight - Most Recent: 149 lb 11.2 oz I&O - Last 24 Hours: Intake & Output 04/18/20 04/19/20 04/19/20 22:59 06:59 14:59 Intake Total 729 Balance 729 Lab Results Last 24 Hours: Laboratory Results - last 24 hr 04/18/20 04/18/20 04/18/20 Range/Units 16:32 16:32 16:32 WBC 5.80 (4.23-9.07) K/mm3 RBC 4.76 (4.63-6.08) M/mm3 Hgb 13.4 L (13.7-17.5) gm/dl Hct 42.5 (40.1-51.0) % MCV 89.3 (79.0-92.2) fl MCH 28.2 (25.7-32.2) pg MCHC 31.5 L (32.2-35.5) g/dl RDW Std Deviation 43.7 (35.1-43.9) fL Plt Count 110 L D (163-337) K/mm3 MPV 11.6 (9.4-12.3) fl Neut % (Auto) 69.3 H (34.0-67.9) % Lymph % (Auto) 22.2 (21.8-53.1) % [place] % (Auto) 6.4 (5.3-12.2) % Eos % (Auto) 1.7 (0.8-7.0) Baso % (Auto) 0.2 (0.1-1.2) % Neut # (Auto) 4.02 (1.78-5.38) K/mm3 Lymph # (Auto) 1.29 L (1.32-3.57) K/mm3 [place] # (Auto) 0.37 (0.30-0.82) K/mm3 Eos # (Auto) 0.10 (0.04-0.54) K/mm3 Baso # (Auto) 0.01 (0.01-0.08) K/mm3 Manual Slide Review Not Reportable D-Dimer, Quantitative (0.19-0.50) mg/L Sodium 142 (136-145) mEq/L Potassium 4.0 (3.5-5.1) mEq/L Chloride 103 (98-107) mEq/L Carbon Dioxide 31 (21-32) mEq/L Anion Gap 12.0 (5-15) BUN 17 (7-18) mg/dL Creatinine 0.6 L (0.7-1.3) mg/dL Est Cr Clr Drug Dosing 114.66 mL/min Estimated GFR (MDRD) > 60 (>60) mL/min BUN/Creatinine Ratio 28.3 H (14-18) Glucose 92 (80-115) mg/dL Lactic Acid 0.7 (0.4-2.0) mmol/L Calcium 8.7 (8.5-10.1) mg/dL Magnesium 1.8 (1.8-2.4) mg/dl Total Bilirubin 0.6 (0.2-1.0) mg/dL AST 20 (15-37) U/L ALT 11 L (16-63) U/L Alkaline Phosphatase 71 (46-116) U/L Creatine Kinase (39-308) U/L CK-MB (CK-2) (0-3.6) ng/ml Troponin I (0.00-0.056) ng/mL C-Reactive Protein (<1.0) mg/dL Total Protein 7.4 (6.4-8.2) g/dl Albumin 3.4 (3.4-5.0) g/dl Globulin 4.0 gm/dL Albumin/Globulin Ratio 0.9 L (1-2) Urine Color (Yellow) Urine Appearance (Clear) Urine pH (5.0-8.0) Ur Specific Ward (1.005-1.030) Urine Protein (Negative) Urine Glucose (UA) (Negative) Urine Ketones (Negative) Urine Occult Blood (Negative) Urine Nitrite (Negative) Urine Bilirubin (Negative) Urine Urobilinogen (0.2-1.0) Ur Leukocyte Esterase (Negative) Urine RBC (0-5) /hpf Urine WBC (0-5) /hpf Ur Squamous Epith Cells (0-5) /hpf Urine Bacteria (FEW) /hpf Urine Mucus (FEW) /hpf 04/18/20 04/18/20 04/18/20 Range/Units 16:32 16:32 17:55 WBC (4.23-9.07) K/mm3 RBC (4.63-6.08) M/mm3 Hgb (13.7-17.5) gm/dl Hct (40.1-51.0) % MCV (79.0-92.2) fl MCH (25.7-32.2) pg MCHC (32.2-35.5) g/dl RDW Std Deviation (35.1-43.9) fL Plt Count (163-337) K/mm3 MPV (9.4-12.3) fl Neut % (Auto) (34.0-67.9) % Lymph % (Auto) (21.8-53.1) % [place] % (Auto) (5.3-12.2) % Eos % (Auto) (0.8-7.0) Baso % (Auto) (0.1-1.2) % Neut # (Auto) (1.78-5.38) K/mm3 Lymph # (Auto) (1.32-3.57) K/mm3 [place] # (Auto) (0.30-0.82) K/mm3 Eos # (Auto) (0.04-0.54) K/mm3 Baso # (Auto) (0.01-0.08) K/mm3 Manual Slide Review D-Dimer, Quantitative 1.13 H (0.19-0.50) mg/L Sodium (136-145) mEq/L Potassium (3.5-5.1) mEq/L Chloride (98-107) mEq/L Carbon Dioxide (21-32) mEq/L Anion Gap (5-15) BUN (7-18) mg/dL Creatinine (0.7-1.3) mg/dL Est Cr Clr Drug Dosing mL/min Estimated GFR (MDRD) (>60) mL/min BUN/Creatinine Ratio (14-18) Glucose (80-115) mg/dL Lactic Acid (0.4-2.0) mmol/L Calcium (8.5-10.1) mg/dL Magnesium (1.8-2.4) mg/dl Total Bilirubin (0.2-1.0) mg/dL AST (15-37) U/L ALT (16-63) U/L Alkaline Phosphatase (46-116) U/L Creatine Kinase 65 (39-308) U/L CK-MB (CK-2) 0.7 (0-3.6) ng/ml Troponin I < 0.017 (0.00-0.056) ng/mL C-Reactive Protein 8.0 H* (<1.0) mg/dL Total Protein (6.4-8.2) g/dl Albumin (3.4-5.0) g/dl Globulin gm/dL Albumin/Globulin Ratio (1-2) Urine Color [place] (Yellow) Urine Appearance Clear (Clear) Urine pH 6.5 (5.0-8.0) Ur Specific Ward 1.025 (1.005-1.030) Urine Protein Trace H (Negative) Urine Glucose (UA) Negative (Negative) Urine Ketones Negative (Negative) Urine Occult Blood Negative (Negative) Urine Nitrite Negative (Negative) Urine Bilirubin Negative (Negative) Urine Urobilinogen 0.2 (0.2-1.0) Ur Leukocyte Esterase Negative (Negative) Urine RBC 0-5 (0-5) /hpf Urine WBC 0-5 (0-5) /hpf Ur Squamous Epith Cells 0-5 (0-5) /hpf Urine Bacteria Few (FEW) /hpf Urine Mucus Few (FEW) /hpf 04/18/20 04/19/20 Range/Units 19:53 06:00 WBC 6.72 (4.23-9.07) K/mm3 RBC 4.30 L (4.63-6.08) M/mm3 Hgb 12.0 L (13.7-17.5) gm/dl Hct 38.9 L (40.1-51.0) % MCV 90.5 (79.0-92.2) fl MCH 27.9 (25.7-32.2) pg MCHC 30.8 L (32.2-35.5) g/dl RDW Std Deviation 44.0 H (35.1-43.9) fL Plt Count 123 L (163-337) K/mm3 MPV 11.5 (9.4-12.3) fl Neut % (Auto) 79.3 H (34.0-67.9) % Lymph % (Auto) 11.5 L (21.8-53.1) % [place] % (Auto) 8.5 (5.3-12.2) % Eos % (Auto) 0.3 L (0.8-7.0) Baso % (Auto) 0.3 (0.1-1.2) % Neut # (Auto) 5.33 (1.78-5.38) K/mm3 Lymph # (Auto) 0.77 L (1.32-3.57) K/mm3 [place] # (Auto) 0.57 (0.30-0.82) K/mm3 Eos # (Auto) 0.02 L (0.04-0.54) K/mm3 Baso # (Auto) 0.02 (0.01-0.08) K/mm3 Manual Slide Review D-Dimer, Quantitative (0.19-0.50) mg/L Sodium (136-145) mEq/L Potassium (3.5-5.1) mEq/L Chloride (98-107) mEq/L Carbon Dioxide (21-32) mEq/L Anion Gap (5-15) BUN (7-18) mg/dL Creatinine (0.7-1.3) mg/dL Est Cr Clr Drug Dosing mL/min Estimated GFR (MDRD) (>60) mL/min BUN/Creatinine Ratio (14-18) Glucose (80-115) mg/dL Lactic Acid 0.8 (0.4-2.0) mmol/L Calcium (8.5-10.1) mg/dL Magnesium (1.8-2.4) mg/dl Total Bilirubin (0.2-1.0) mg/dL AST (15-37) U/L ALT (16-63) U/L Alkaline Phosphatase (46-116) U/L Creatine Kinase (39-308) U/L CK-MB (CK-2) (0-3.6) ng/ml Troponin I (0.00-0.056) ng/mL C-Reactive Protein (<1.0) mg/dL Total Protein (6.4-8.2) g/dl Albumin (3.4-5.0) g/dl Globulin gm/dL Albumin/Globulin Ratio (1-2) Urine Color (Yellow) Urine Appearance (Clear) Urine pH (5.0-8.0) Ur Specific Ward (1.005-1.030) Urine Protein (Negative) Urine Glucose (UA) (Negative) Urine Ketones (Negative) Urine Occult Blood (Negative) Urine Nitrite (Negative) Urine Bilirubin (Negative) Urine Urobilinogen (0.2-1.0) Ur Leukocyte Esterase (Negative) Urine RBC (0-5) /hpf Urine WBC (0-5) /hpf Ur Squamous Epith Cells (0-5) /hpf Urine Bacteria (FEW) /hpf Urine Mucus (FEW) /hpf Med Orders - Current: Current Medications Acetaminophen (Tylenol) 650 mg RECTAL Q4H PRN PRN Reason: Pain (mild 1-3) Acetaminophen (Tylenol) 650 mg PO Q4H PRN PRN Reason: Pain (Mild 1-3)/fever Albuterol/Ipratropium (Duoneb 3.0-0.5 Mg/3 Ml) 3 ml NEB Q4H PRN PRN Reason: Shortness Of Breath/wheezing Guaifenesin/Phenylephrine HCl (Robitussin Dm) 10 ml PO Q4H PRN PRN Reason: Cough Sodium Chloride (Normal Saline) 1,000 mls @ 100 mls/hr IV [facility] Last Admin: 04/18/20 17:55 Dose: 100 mls/hr Documented by: Sodium Chloride (Normal Saline) 100 mls [facility] Admin: 04/18/20 18:37 Dose: 60 mls/hr Documented by: Promethazine HCl 12.5 mg/ (Sodium Chloride) 50.5 mls @ 100 mls/hr IV Q6H PRN PRN Reason: Nausea/Vomiting Piperacillin Sod/Tazobactam (Sod 4.5 gm/ Sodium Chloride) 100 mls @ 25 mls/hr IV Q8H [facility] Last Admin: 04/19/20 04:17 Dose: 25 mls/hr Documented by: Dextrose/Sodium Chloride (Dextrose 5%-Normal Saline) 1,000 mls @ 75 mls/hr IV [facility] Last Infusion: 04/19/20 06:16 Dose: 0 mls/hr Documented by: Lorazepam (Ativan) 2 mg IVPUSH Q4H PRN PRN Reason: Seizures Lorazepam (Ativan) 1 mg IVPUSH Q4H PRN; Protocol PRN Reason: restlessness Last Admin: 04/19/20 02:21 Dose: 1 mg Documented by: Ondansetron HCl (Zofran) 4 mg IV Q6H PRN PRN Reason: Nausea/Vomiting Sodium Chloride (Saline Flush) 10 ml FLUSH ASDIRECTED [facility] Last Admin: 04/18/20 18:37 Dose: 10 ml Documented by: Trolamine Salicylate (Aspercreme 10%) 0 gm TOP Q4H PRN PRN Reason: Pain (mild 1-3) Discontinued Medications Piperacillin Sod/Tazobactam (Sod 4.5 gm/ Sodium Chloride) 100 mls @ 200 mls/hr IV ONETIME ONE Stop: 04/18/20 20:29 Last Admin: 04/18/20 20:16 Dose: 200 mls/hr Documented by: Lactated Ringer's (Ringers, Lactated) 1,000 mls @ 999 mls/hr IV .BOLUS ONE Stop: 04/19/20 06:26 Last Admin: 04/19/20 06:07 Dose: 999 mls/hr Documented by: Iopamidol (Isovue-370 (76%)) 100 ml IVPUSH ONETIME ONE Stop: 04/18/20 18:10 Last Admin: 04/18/20 18:37 Dose: 100 ml Documented by: - Exam Quality Assessment: DVT Prophylaxis. No: Supplemental Oxygen, Urine Catheter General: Alert, Oriented, Cooperative, Mild Distress (Reports significant pain due to spasticity of extremities.) HEENT: Pupils Equal, Pupils Reactive, Mucous Membr. Moist/[place] Neck: Supple, Trachea Midline Lungs: Normal Respiratory Effort, Decreased Breath Sounds, Rhonchi Cardiovascular: Regular Rate, Regular Rhythm GI/Abdominal Exam: Normal Bowel Sounds, Soft, Non-Tender, No Distention (Male) Exam: Deferred Extremities: No Pedal Edema, Normal Capillary Refill, Arm Pain (Left armbaseline due to underlying spastic neuromuscular disease. Arm is in a brace), Leg Pain (Bilateral), Limited Range of Motion (Baseline significant due to underlying neuromuscular disease) Peripheral Pulses: 2+: Radial (L), Radial (R), Dorsalis Pedis (L), Dorsalis Pedis (R) Skin: Warm, Dry, Intact Neurological: No New Focal Deficit Psy/Mental Status: Alert - Patient Data Lab Results Last 24 hrs: Laboratory Results - last 24 hr 04/18/20 04/18/20 04/18/20 Range/Units 16:32 16:32 16:32 WBC 5.80 (4.23-9.07) K/mm3 RBC 4.76 (4.63-6.08) M/mm3 Hgb 13.4 L (13.7-17.5) gm/dl Hct 42.5 (40.1-51.0) % MCV 89.3 (79.0-92.2) fl MCH 28.2 (25.7-32.2) pg MCHC 31.5 L (32.2-35.5) g/dl RDW Std Deviation 43.7 (35.1-43.9) fL Plt Count 110 L D (163-337) K/mm3 MPV 11.6 (9.4-12.3) fl Neut % (Auto) 69.3 H (34.0-67.9) % Lymph % (Auto) 22.2 (21.8-53.1) % [place] % (Auto) 6.4 (5.3-12.2) % Eos % (Auto) 1.7 (0.8-7.0) Baso % (Auto) 0.2 (0.1-1.2) % Neut # (Auto) 4.02 (1.78-5.38) K/mm3 Lymph # (Auto) 1.29 L (1.32-3.57) K/mm3 [place] # (Auto) 0.37 (0.30-0.82) K/mm3 Eos # (Auto) 0.10 (0.04-0.54) K/mm3 Baso # (Auto) 0.01 (0.01-0.08) K/mm3 Manual Slide Review Not Reportable D-Dimer, Quantitative (0.19-0.50) mg/L Sodium 142 (136-145) mEq/L Potassium 4.0 (3.5-5.1) mEq/L Chloride 103 (98-107) mEq/L Carbon Dioxide 31 (21-32) mEq/L Anion Gap 12.0 (5-15) BUN 17 (7-18) mg/dL Creatinine 0.6 L (0.7-1.3) mg/dL Est Cr Clr Drug Dosing 114.66 mL/min Estimated GFR (MDRD) > 60 (>60) mL/min BUN/Creatinine Ratio 28.3 H (14-18) Glucose 92 (80-115) mg/dL Lactic Acid 0.7 (0.4-2.0) mmol/L Calcium 8.7 (8.5-10.1) mg/dL Magnesium 1.8 (1.8-2.4) mg/dl Total Bilirubin 0.6 (0.2-1.0) mg/dL AST 20 (15-37) U/L ALT 11 L (16-63) U/L Alkaline Phosphatase 71 (46-116) U/L Creatine Kinase (39-308) U/L CK-MB (CK-2) (0-3.6) ng/ml Troponin I (0.00-0.056) ng/mL C-Reactive Protein (<1.0) mg/dL Total Protein 7.4 (6.4-8.2) g/dl Albumin 3.4 (3.4-5.0) g/dl Globulin 4.0 gm/dL Albumin/Globulin Ratio 0.9 L (1-2) Urine Color (Yellow) Urine Appearance (Clear) Urine pH (5.0-8.0) Ur Specific Ward (1.005-1.030) Urine Protein (Negative) Urine Glucose (UA) (Negative) Urine Ketones (Negative) Urine Occult Blood (Negative) Urine Nitrite (Negative) Urine Bilirubin (Negative) Urine Urobilinogen (0.2-1.0) Ur Leukocyte Esterase (Negative) Urine RBC (0-5) /hpf Urine WBC (0-5) /hpf Ur Squamous Epith Cells (0-5) /hpf Urine Bacteria (FEW) /hpf Urine Mucus (FEW) /hpf 04/18/20 04/18/20 04/18/20 Range/Units 16:32 16:32 17:55 WBC (4.23-9.07) K/mm3 RBC (4.63-6.08) M/mm3 Hgb (13.7-17.5) gm/dl Hct (40.1-51.0) % MCV (79.0-92.2) fl MCH (25.7-32.2) pg MCHC (32.2-35.5) g/dl RDW Std Deviation (35.1-43.9) fL Plt Count (163-337) K/mm3 MPV (9.4-12.3) fl Neut % (Auto) (34.0-67.9) % Lymph % (Auto) (21.8-53.1) % [place] % (Auto) (5.3-12.2) % Eos % (Auto) (0.8-7.0) Baso % (Auto) (0.1-1.2) % Neut # (Auto) (1.78-5.38) K/mm3 Lymph # (Auto) (1.32-3.57) K/mm3 [place] # (Auto) (0.30-0.82) K/mm3 Eos # (Auto) (0.04-0.54) K/mm3 Baso # (Auto) (0.01-0.08) K/mm3 Manual Slide Review D-Dimer, Quantitative 1.13 H (0.19-0.50) mg/L Sodium (136-145) mEq/L Potassium (3.5-5.1) mEq/L Chloride (98-107) mEq/L Carbon Dioxide (21-32) mEq/L Anion Gap (5-15) BUN (7-18) mg/dL Creatinine (0.7-1.3) mg/dL Est Cr Clr Drug Dosing mL/min Estimated GFR (MDRD) (>60) mL/min BUN/Creatinine Ratio (14-18) Glucose (80-115) mg/dL Lactic Acid (0.4-2.0) mmol/L Calcium (8.5-10.1) mg/dL Magnesium (1.8-2.4) mg/dl Total Bilirubin (0.2-1.0) mg/dL AST (15-37) U/L ALT (16-63) U/L Alkaline Phosphatase (46-116) U/L Creatine Kinase 65 (39-308) U/L CK-MB (CK-2) 0.7 (0-3.6) ng/ml Troponin I < 0.017 (0.00-0.056) ng/mL C-Reactive Protein 8.0 H* (<1.0) mg/dL Total Protein (6.4-8.2) g/dl Albumin (3.4-5.0) g/dl Globulin gm/dL Albumin/Globulin Ratio (1-2) Urine Color [place] (Yellow) Urine Appearance Clear (Clear) Urine pH 6.5 (5.0-8.0) Ur Specific Ward 1.025 (1.005-1.030) Urine Protein Trace H (Negative) Urine Glucose (UA) Negative (Negative) Urine Ketones Negative (Negative) Urine Occult Blood Negative (Negative) Urine Nitrite Negative (Negative) Urine Bilirubin Negative (Negative) Urine Urobilinogen 0.2 (0.2-1.0) Ur Leukocyte Esterase Negative (Negative) Urine RBC 0-5 (0-5) /hpf Urine WBC 0-5 (0-5) /hpf Ur Squamous Epith Cells 0-5 (0-5) /hpf Urine Bacteria Few (FEW) /hpf Urine Mucus Few (FEW) /hpf 04/18/20 04/19/20 Range/Units 19:53 06:00 WBC 6.72 (4.23-9.07) K/mm3 RBC 4.30 L (4.63-6.08) M/mm3 Hgb 12.0 L (13.7-17.5) gm/dl Hct 38.9 L (40.1-51.0) % MCV 90.5 (79.0-92.2) fl MCH 27.9 (25.7-32.2) pg MCHC 30.8 L (32.2-35.5) g/dl RDW Std Deviation 44.0 H (35.1-43.9) fL Plt Count 123 L (163-337) K/mm3 MPV 11.5 (9.4-12.3) fl Neut % (Auto) 79.3 H (34.0-67.9) % Lymph % (Auto) 11.5 L (21.8-53.1) % [place] % (Auto) 8.5 (5.3-12.2) % Eos % (Auto) 0.3 L (0.8-7.0) Baso % (Auto) 0.3 (0.1-1.2) % Neut # (Auto) 5.33 (1.78-5.38) K/mm3 Lymph # (Auto) 0.77 L (1.32-3.57) K/mm3 [place] # (Auto) 0.57 (0.30-0.82) K/mm3 Eos # (Auto) 0.02 L (0.04-0.54) K/mm3 Baso # (Auto) 0.02 (0.01-0.08) K/mm3 Manual Slide Review D-Dimer, Quantitative (0.19-0.50) mg/L Sodium (136-145) mEq/L Potassium (3.5-5.1) mEq/L Chloride (98-107) mEq/L Carbon Dioxide (21-32) mEq/L Anion Gap (5-15) BUN (7-18) mg/dL Creatinine (0.7-1.3) mg/dL Est Cr Clr Drug Dosing mL/min Estimated GFR (MDRD) (>60) mL/min BUN/Creatinine Ratio (14-18) Glucose (80-115) mg/dL Lactic Acid 0.8 (0.4-2.0) mmol/L Calcium (8.5-10.1) mg/dL Magnesium (1.8-2.4) mg/dl Total Bilirubin (0.2-1.0) mg/dL AST (15-37) U/L ALT (16-63) U/L Alkaline Phosphatase (46-116) U/L Creatine Kinase (39-308) U/L CK-MB (CK-2) (0-3.6) ng/ml Troponin I (0.00-0.056) ng/mL C-Reactive Protein (<1.0) mg/dL Total Protein (6.4-8.2) g/dl Albumin (3.4-5.0) g/dl Globulin gm/dL Albumin/Globulin Ratio (1-2) Urine Color (Yellow) Urine Appearance (Clear) Urine pH (5.0-8.0) Ur Specific Ward (1.005-1.030) Urine Protein (Negative) Urine Glucose (UA) (Negative) Urine Ketones (Negative) Urine Occult Blood (Negative) Urine Nitrite (Negative) Urine Bilirubin (Negative) Urine Urobilinogen (0.2-1.0) Ur Leukocyte Esterase (Negative) Urine RBC (0-5) /hpf Urine WBC (0-5) /hpf Ur Squamous Epith Cells (0-5) /hpf Urine Bacteria (FEW) /hpf Urine Mucus (FEW) /hpf Result Diagrams: 04/19/20 06:00 04/19/20 06:00 Sepsis Event Note - Evaluation Sepsis Screening Result: No Definite Risk - Focused Exam Vital Signs: Vital Signs Temp Pulse Resp BP BP Pulse Ox Pulse Ox 04/19/20 06:10 97 04/19/20 05:58 04/19/20 04:00 98 F 71 17 99/49 L 98 04/19/20 00:00 97.9 F 20 90/47 L 96 04/18/20 21:17 04/18/20 21:01 96 04/18/20 20:53 04/18/20 20:37 98.9 F 18 86/69 L 96 04/18/20 20:00 84 14 110/64 97 04/18/20 19:30 84 15 109/54 L 99 Pulse Ox 04/19/20 06:10 04/19/20 05:58 100 04/19/20 04:00 04/19/20 00:00 04/18/20 21:17 95 04/18/20 21:01 04/18/20 20:53 95 04/18/20 20:37 04/18/20 20:00 04/18/20 19:30 - Problem List & Annotations (1) Altered mental status SNOMED Code(s): 993416381 Code(s): R41.82 - ALTERED MENTAL STATUS, UNSPECIFIED Status: Resolved Priority: High Current Visit: Yes Qualifiers: Altered mental status type: unspecified Qualified Code(s): R41.82 - Altered mental status, unspecified (2) Aspiration pneumonia SNOMED Code(s): 575314060 Code(s): J69.0 - PNEUMONITIS DUE TO INHALATION OF FOOD AND VOMIT Status: Acute Priority: High Current Visit: Yes Qualifiers: Aspiration pneumonia type: unspecified Laterality: unspecified laterality Lung location: unspecified part of lung Qualified Code(s): J69.0 - Pneumonitis due to inhalation of food and vomit (3) Pleural effusion SNOMED Code(s): 21382516 Code(s): J90 - PLEURAL EFFUSION, NOT ELSEWHERE CLASSIFIED Status: Chronic Priority: Low Current Visit: No (4) Respiratory failure SNOMED Code(s): 577661823 Code(s): J96.90 - RESPIRATORY FAILURE, UNSP, UNSP W HYPOXIA OR HYPERCAPNIA Status: Resolved Priority: High Current Visit: Yes Qualifiers: Chronicity: acute Respiratory failure complication: hypoxia Qualified Code(s): J96.01 - Acute respiratory failure with hypoxia (5) Hypoxia SNOMED Code(s): 153455886 Code(s): R09.02 - HYPOXEMIA Status: Resolved Priority: High Current Visit: Yes (6) Elevated d-dimer SNOMED Code(s): 733062235 Code(s): R79.89 - OTHER SPECIFIED ABNORMAL FINDINGS OF BLOOD CHEMISTRY Status: Acute Priority: High Current Visit: Yes (7) Normocytic hypochromic anemia SNOMED Code(s): 53484428 Code(s): D50.9 - IRON DEFICIENCY ANEMIA, UNSPECIFIED Status: Acute Priority: Medium Current Visit: Yes (8) Disability due to neurological disorder SNOMED Code(s): 316348471 Code(s): R29.818 - OTHER SYMPTOMS AND SIGNS INVOLVING THE NERVOUS SYSTEM Status: Chronic Priority: High Current Visit: Yes (9) Progressive supranuclear palsy SNOMED Code(s): 579868715 Code(s): G23.1 - PROGRESSIVE SUPRANUCLEAR OPHTHALMOPLEGIA Status: Chronic Priority: High Current Visit: Yes (10) shelter resident SNOMED Code(s): 615384522 Code(s): Z59.3 - PROBLEMS RELATED TO LIVING IN RESIDENTIAL INSTITUTION Status: Chronic Priority: Medium Current Visit: No (11) Progressive supranuclear ophthalmoplegia SNOMED Code(s): 06297083 Code(s): G23.1 - PROGRESSIVE SUPRANUCLEAR OPHTHALMOPLEGIA Status: Chronic Priority: Medium Current Visit: No (12) Swallowing impairment SNOMED Code(s): 279610733 Code(s): R13.10 - DYSPHAGIA, UNSPECIFIED Status: Chronic Priority: Medium Current Visit: No (13) Wheelchair bound SNOMED Code(s): 611734182, 741370998 Code(s): Z99.3 - DEPENDENCE ON WHEELCHAIR Status: Chronic Priority: Medium Current Visit: No (14) Sepsis SNOMED Code(s): 04992332 Code(s): A41.9 - SEPSIS, UNSPECIFIED ORGANISM Status: Resolved Priority: High Current Visit: Yes Qualifiers: Sepsis type: sepsis due to unspecified organism Sepsis acute organ dysfunction status: with acute organ dysfunction Severe sepsis acute organ dysfunction type: unspecified Severe sepsis shock status: with septic shock Qualified Code(s): A41.9 - Sepsis, unspecified organism; R65.21 - Severe sepsis with septic shock - Problem List Review Problem List Initiated/Reviewed/Updated: Yes - Plan Plan:: This is a 64 yo white male with past medical hx/o Impaired vision, hypertension, hyperlipidemia, aspiration pneumonia, recurrent pneumonia, chronic constipation, GERD, hiatal hernia, BPH, urinary retention, recurrent UTI, chronic back pain, osteoarthritis, history of falls, history of fractured ribs, chronic muscle sp asm, polyarthritis, Parkinson's disease with speech problem, vertigo, 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 Assessment: Acute: Acute on chronic aspiration pneumonia Respiratory for you respiratory failure requiring supplemental O2 Small Pleural Effusion, chronic Tachypnea with RR in the mid 20s Hypoxia with O2 sat in the low 70s on RA; 88% on 6L NC in ED Elevated D-dimer, Chest CTA negative for PE Severe sepsis with septic shock, resolved -Risk factors: Progressive neuromuscular disease, supranuclear ophthalmoplegia, speech disorder, dysphagia, chronic sedation from multiple medications -Has underlying GERD as well as hiatal hernia -Hypoxic at the [facility] with O2 sat in the 70s -Initially put on simple mask by EMS -Currently on 2 L nasal cannula with oxygen saturations in the upper 90's -Chest CTA shows patchy pulmonary infiltrate and small pleural effusion -Concern for oversedation as patient was just placed on increased fentanyl patch per SNF paperwork -Noted to be hypotensive overnight. IV fluid bolus given in AM -Plan: Sputum culture and gram stain, IV Zosyn for Aspiration, PRN decongestant/expectorant, IS/FV as directed, RT to assess and treat, PRN Bronchodilators, and Serial chest x-ray as indicated, Procalcitonin pending. Normocytic Hypochromic Anemia with Hgb of 13.4-->12.0 grams -He carries a hx/o chronic anemia by EMR -No report of rectal bleeding or melena -He is not on antiplatelet or anti-coagulation Debility/Generalized Weakness -Secondary to progressive neurological disease -Will check for vit D and TSH -PT/OT for deconditioning Resolved: AMS/Metabolic Encephalopathy Polypharmacy -Patient is altered -Risk factors: on multiple medications -He is on the following maintenance medications baclofen 10 mg p.o. 4 times daily, carbidopa/levodopa 68261 tab p.o. 4 times daily, cyclobenzaprine 5 mg p.o. 3 times daily, fentanyl 125 mcg transdermal every 72 hours, gabapentin 200 mg p.o. 3 times daily, hydromorphone 2 mg p.o. every 6 as needed for pain, Ativan 1 mg p.o. twice daily, and Trazodone 150 mg p.o. 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 Sepsis work up. Inflammatory markers. Resume home medications with caution for over sedation Aspiration precautions. Fall precautions. Empiric IV Antibiotic with IV Zosyn. May add IV Vancomycin given his hx/o MRSA in the past. IV fluids with D5NS 1L at 75cc/hr for hydration and sustenance. PT/OT. Additional orders as above. Code status is DNR/DNI. Prognosis is guarded.
[2020-04-19] MEDS: Cyclobenzaprine 10 MG Tab PO SCH ×3 (09:28→20:17)
[2020-04-19] MEDS: busPIRone 15 MG Tab PO SCH ×2 (09:28→20:17)
[2020-04-19] MEDS: Gabapentin 100 MG Cap PO SCH ×3 (09:28→20:16)
[2020-04-19] MEDS: Baclofen 10 MG Tab PO SCH ×4 (09:28→20:17)
[2020-04-19] MEDS: Acetaminophen 325 MG Tab PO PRN (09:57)
[2020-04-19] MEDS ORDERED: Terazosin 5 MG Cap PO SCH (10:15)
[2020-04-19] MEDS: Celecoxib 100 MG Cap PO SCH (10:20)
[2020-04-19] MEDS: Carbidopa/Levodopa 25-100 MG Tab PO SCH ×4 (10:21→20:17)
[2020-04-19] MEDS: HYDROmorphone 2 MG Tab PO PRN ×2 (10:21→16:08)
[2020-04-19 10:36] LABS: VITAMIN D,25-HYDROXY 26.7 ng/ml (30.0-100.0)
[2020-04-19] MEDS: LORazepam 1 MG Tab PO SCH ×3 (11:08→18:23)
[2020-04-19] MEDS: Polyethylene Glycol 3350 Powder 17 GM Packet PO SCH (11:09)
[2020-04-19] MEDS: Cholecalciferol (Vitamin D3) 5,000 UNIT Cap PO SCH (11:09)
[2020-04-19] MEDS ORDERED: fentaNYL 75 MCG/HR Transdermal Patch TRDERM SCH (11:30)
[2020-04-19] MEDS: Dextrose 5%-0.9% NaCl 1,000 ML IV SCH (12:35)
[2020-04-19] MEDS: Sertraline 50 MG Tab PO SCH (20:17)
[2020-04-20] MEDS: Piperacillin/Tazobactam 4.5 GM in Sodium Chloride 0.9% 100 ML IV SCH ×3 (04:17→20:15)
[2020-04-20] MEDS: LORazepam 1 MG Tab PO SCH ×4 (06:47→20:21)
[2020-04-20] MEDS: Polyethylene Glycol 3350 Powder 17 GM Packet PO SCH (08:36)
[2020-04-20] MEDS: Celecoxib 100 MG Cap PO SCH (08:36)
[2020-04-20] MEDS: Gabapentin 100 MG Cap PO SCH ×3 (08:36→20:18)
[2020-04-20] MEDS: busPIRone 15 MG Tab PO SCH ×2 (08:36→20:17)
[2020-04-20] MEDS: Cholecalciferol (Vitamin D3) 5,000 UNIT Cap PO SCH (08:36)
[2020-04-20] MEDS: Cyclobenzaprine 10 MG Tab PO SCH ×3 (08:37→20:16)
[2020-04-20] MEDS: Baclofen 10 MG Tab PO SCH ×4 (08:37→20:17)
[2020-04-20] MEDS: Carbidopa/Levodopa 25-100 MG Tab PO SCH ×4 (08:37→20:17)
[2020-04-20] MEDS: HYDROmorphone 2 MG Tab PO PRN (08:40)
[2020-04-20] MEDS ORDERED: Amoxicillin/Clavulanate K 875-125 MG Tab PO SCH (09:00)
--- NOTE | 2020-04-20 09:43 | CR ---
Chest: Portable view of the chest was obtained. Comparison: Prior chest x-ray of 04/18/20. Increased density is seen within the left lung base more prominent than on prior exam. Slight pleural thickening/effusion within the costophrenic angle of both lungs. Lungs otherwise are clear. Heart size and mediastinum are within normal limits. Impression: 1. Increased density within the left lung base which is more prominent than on prior chest x-ray. 2. Slight pleural thickening/effusion noted within both costophrenic angles. 3. No other acute abnormality is appreciated. Diagnostic code #3
[2020-04-20] MEDS: Enoxaparin 40 MG/0.4 ML Syringe SUBCUT SCH (10:46)
--- NOTE | 2020-04-20 11:48 | PCM.PN ---
- General Info Date of Service: 04/20/20 Admission Dx/Problem (Free Text): Aspiration pneumonia Functional Status: Reports: Pain Controlled, Tolerating Diet, Ambulating (minimal but at baseline ), Urinating, Incentive Spirometry, Other (Acapella ). Denies: New Symptoms - Review of Systems General: Reports: Weakness. Denies: Fever, Fatigue, Malaise, Chills HEENT: Reports: No Symptoms. Denies: Headaches, Sore Throat Pulmonary: Reports: Shortness of Breath. Denies: Pleuritic Chest Pain, Cough, Sputum, Wheezing Cardiovascular: Reports: Dyspnea on Exertion. Denies: Chest Pain, Palpitations, Edema Gastrointestinal: Reports: No Symptoms. Denies: Abdominal Pain, Constipation, Diarrhea, Nausea, Vomiting Genitourinary: Reports: No Symptoms. Denies: Pain Musculoskeletal: Reports: Neck Pain (baseline ), Shoulder Pain (left- baseline ), Arm Pain (left - baseline ), Back Pain (baseline ), Leg Pain (baseline ) Skin: Reports: No Symptoms. 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 Denies: Confusion Psychiatric: Reports: No Symptoms - Patient Data Vitals - Most Recent: Last Vital Signs Temp 98.0 F 04/20/20 08:00 Pulse 76 04/20/20 08:00 Resp 17 04/20/20 08:00 BP 112/69 04/20/20 08:00 Pulse Ox 95 04/20/20 10:29 Weight - Most Recent: 148 lb 8 oz I&O - Last 24 Hours: Intake & Output 04/19/20 04/20/20 04/20/20 22:59 06:59 14:59 Intake Total 1501 864 100 Output Total 500 Balance 1501 364 100 Lab Results Last 24 Hours: Laboratory Results - last 24 hr 04/18/20 04/20/20 Range/Units 16:32 04:38 Sodium 144 (136-145) mEq/L Potassium 3.6 (3.5-5.1) mEq/L Chloride 107 (98-107) mEq/L Carbon Dioxide 31 (21-32) mEq/L Anion Gap 9.6 (5-15) BUN 17 (7-18) mg/dL Creatinine 0.7 (0.7-1.3) mg/dL Est Cr Clr Drug Dosing 104.25 mL/min Estimated GFR (MDRD) > 60 (>60) mL/min BUN/Creatinine Ratio 24.3 H (14-18) Glucose 76 L (80-115) mg/dL Calcium 8.2 L (8.5-10.1) mg/dL Magnesium 1.8 (1.8-2.4) mg/dl C-Reactive Protein 18.1 H* (<1.0) mg/dL Procalcitonin 0.08 ng/mL Rommel Results Last 24 Hours: Microbiology 04/18/20 16:42 Aerobic Blood Culture - Preliminary Blood - Venous - Lab Draw NO GROWTH AFTER 1 DAY Anaerobic Blood Culture - Final 04/18/20 16:32 Aerobic Blood Culture - Preliminary Blood - Venous NO GROWTH AFTER 1 DAY Anaerobic Blood Culture - Preliminary NO GROWTH AFTER 1 DAY Med Orders - Current: Current Medications Acetaminophen (Tylenol) 650 mg RECTAL Q4H PRN PRN Reason: Pain (mild 1-3) Acetaminophen (Tylenol) 650 mg PO Q4H PRN PRN Reason: Pain (Mild 1-3)/fever Last Admin: 04/19/20 09:57 Dose: 650 mg Documented by: Albuterol/Ipratropium (Duoneb 3.0-0.5 Mg/3 Ml) 3 ml NEB Q4H PRN PRN Reason: Shortness Of Breath/wheezing Baclofen (Lioresal) 10 mg PO QID [facility] Last Admin: 04/20/20 08:37 Dose: 10 mg Documented by: Buspirone HCl (Buspar) 15 mg PO BID [facility] Last Admin: 04/20/20 08:36 Dose: 15 mg Documented by: Carbidopa/Levodopa (Sinemet 25-100 Mg) 1 tab PO QID [facility] Last Admin: 04/20/20 08:37 Dose: 1 tab Documented by: Celecoxib (Celebrex) 200 mg PO DAILY [facility] Last Admin: 04/20/20 08:36 Dose: 200 mg Documented by: Cholecalciferol (Vitamin D3) 5,000 unit PO DAILY [facility] Last Admin: 04/20/20 08:36 Dose: 5,000 unit Documented by: Cyclobenzaprine HCl (Flexeril) 5 mg PO TID [facility] Last Admin: 04/20/20 08:37 Dose: 5 mg Documented by: Enoxaparin Sodium (Lovenox) 40 mg SUBCUT DAILY [facility] Last Admin: 04/20/20 10:46 Dose: 40 mg Documented by: Fentanyl (Duragesic) 75 mcg TRDERM Q72H [facility] Last Admin: 04/19/20 11:24 Dose: 75 mcg Documented by: Gabapentin (Neurontin) 200 mg PO TID [facility] Last Admin: 04/20/20 08:36 Dose: 200 mg Documented by: Guaifenesin/Phenylephrine HCl (Robitussin Dm) 10 ml PO Q4H PRN PRN Reason: Cough Hydromorphone HCl (Dilaudid) 2 mg PO Q6H PRN PRN Reason: Pain Last Admin: 04/20/20 08:40 Dose: 2 mg Documented by: Promethazine HCl 12.5 mg/ (Sodium Chloride) 50.5 mls @ 100 mls/hr IV Q6H PRN PRN Reason: Nausea/Vomiting Dextrose/Sodium Chloride (Dextrose 5%-Normal Saline) 1,000 mls @ 75 mls/hr IV ASDIRECTED [facility] Last Admin: 04/19/20 12:35 Dose: 75 mls/hr Documented by: Piperacillin Sod/Tazobactam (Sod 4.5 gm/ Sodium Chloride) 100 mls @ 25 mls/hr IV Q8H [facility] Lorazepam (Ativan) 2 mg IVPUSH Q4H PRN PRN Reason: Seizures Lorazepam (Ativan) 1 mg IVPUSH Q4H PRN; Protocol PRN Reason: restlessness Last Admin: 04/19/20 02:21 Dose: 1 mg Documented by: Lorazepam (Ativan) 1 mg PO 12,16 [facility] Last Admin: 04/19/20 16:00 Dose: 1 mg Documented by: Lorazepam (Ativan) 1 mg PO 07,19 [facility] Last Admin: 04/20/20 06:47 Dose: 1 mg Documented by: Miscellaneous Information (Remove Patch) 1 ea TRDERM Q72H [facility] Ondansetron HCl (Zofran) 4 mg IV Q6H PRN PRN Reason: Nausea/Vomiting Polyethylene Glycol (Miralax) 17 gm PO DAILY [facility] Last Admin: 04/20/20 08:36 Dose: 17 gm Documented by: Senna/Docusate Sodium (Senna Plus) 1 tab PO DAILY [facility] Last Admin: 04/20/20 08:36 Dose: 1 tab Documented by: Sertraline HCl (Zoloft) 75 mg PO BEDTIME [facility] Last Admin: 04/19/20 20:17 Dose: 75 mg Documented by: Sodium Chloride (Saline Flush) 10 ml FLUSH ASDIRECTED [facility] Last Admin: 04/18/20 18:37 Dose: 10 ml Documented by: Trolamine Salicylate (Aspercreme 10%) 0 gm TOP Q4H PRN PRN Reason: Pain (mild 1-3) Discontinued Medications Amoxicillin/Clavulanate Potassium (Augmentin 875 Mg/125 Mg) 1 tab PO Q12H [facility] Last Admin: 04/20/20 09:57 Dose: Not Given Documented by: Sodium Chloride (Normal Saline) 1,000 mls @ 100 mls/hr IV ASDIRECTED [facility] Last Admin: 04/18/20 17:55 Dose: 100 mls/hr Documented by: Sodium Chloride (Normal Saline) 100 mls @ 60 mls/hr IV ASDIRECTED [facility] Last Admin: 04/18/20 18:37 Dose: 60 mls/hr Documented by: Piperacillin Sod/Tazobactam (Sod 4.5 gm/ Sodium Chloride) 100 mls @ 25 mls/hr IV Q8H [facility] Last Admin: 04/20/20 04:17 Dose: 25 mls/hr Documented by: Piperacillin Sod/Tazobactam (Sod 4.5 gm/ Sodium Chloride) 100 mls @ 200 mls/hr IV ONETIME ONE Stop: 04/18/20 20:29 Last Admin: 04/18/20 20:16 Dose: 200 mls/hr Documented by: Lactated Ringer's (Ringers, Lactated) 1,000 mls @ 999 mls/hr IV .BOLUS ONE Stop: 04/19/20 06:26 Last Admin: 04/19/20 06:07 Dose: 999 mls/hr Documented by: Iopamidol (Isovue-370 (76%)) 100 ml IVPUSH ONETIME ONE Stop: 04/18/20 18:10 Last Admin: 04/18/20 18:37 Dose: 100 ml Documented by: Miscellaneous Information (Remove Patch) 1 ea TRDERM ONETIME ONE Stop: 04/19/20 11:01 Last Admin: 04/19/20 11:25 Dose: 1 ea Documented by: Terazosin HCl (Hytrin) 5 mg PO BID [facility] Last Admin: 04/19/20 10:15 Dose: Not Given Documented by: - Exam Quality Assessment: Supplemental Oxygen (2L ), DVT Prophylaxis General: Alert, Oriented, Cooperative, No Acute Distress HEENT: Pupils Equal, Pupils Reactive, Mucous Membr. Moist/[place] Walk Neck: Supple, Trachea Midline Lungs: Clear to Auscultation, Normal Respiratory Effort, Decreased Breath Sounds Cardiovascular: Regular Rate, Regular Rhythm GI/Abdominal Exam: Normal Bowel Sounds, Soft, Non-Tender, No Distention (Male) Exam: Deferred Extremities: No Pedal Edema, Normal Capillary Refill, Arm Pain (left arm and shoulder ), Leg Pain, Limited Range of Motion (Baseline neuromuscular disease resulting in spasticity and contractures) Peripheral Pulses: 2+: Radial (L), Radial (R), Dorsalis Pedis (L), Dorsalis Pedis (R) Skin: Warm, Dry, Intact Neurological: No New Focal Deficit Psy/Mental Status: Alert, Normal Affect, Normal Mood - Patient Data Lab Results Last 24 hrs: Laboratory Results - last 24 hr 04/18/20 04/20/20 Range/Units 16:32 04:38 Sodium 144 (136-145) mEq/L Potassium 3.6 (3.5-5.1) mEq/L Chloride 107 (98-107) mEq/L Carbon Dioxide 31 (21-32) mEq/L Anion Gap 9.6 (5-15) BUN 17 (7-18) mg/dL Creatinine 0.7 (0.7-1.3) mg/dL Est Cr Clr Drug Dosing 104.25 mL/min Estimated GFR (MDRD) > 60 (>60) mL/min BUN/Creatinine Ratio 24.3 H (14-18) Glucose 76 L (80-115) mg/dL Calcium 8.2 L (8.5-10.1) mg/dL Magnesium 1.8 (1.8-2.4) mg/dl C-Reactive Protein 18.1 H* (<1.0) mg/dL Procalcitonin 0.08 ng/mL Result Diagrams: 04/19/20 06:00 04/20/20 04:38 Rommel Results Last 24 hrs: Microbiology 04/18/20 16:42 Aerobic Blood Culture - Preliminary Blood - Venous - Lab Draw NO GROWTH AFTER 1 DAY Anaerobic Blood Culture - Final 04/18/20 16:32 Aerobic Blood Culture - Preliminary Blood - Venous NO GROWTH AFTER 1 DAY Anaerobic Blood Culture - Preliminary NO GROWTH AFTER 1 DAY Sepsis Event Note - Evaluation Sepsis Screening Result: No Definite Risk - Focused Exam Vital Signs: Vital Signs Temp Temp Pulse Pulse Resp BP BP 04/20/20 10:29 04/20/20 08:39 04/20/20 08:00 98.0 F 76 17 112/69 04/20/20 04:17 97.9 F 71 18 109/81 Pulse Ox Pulse Ox 04/20/20 10:29 95 04/20/20 08:39 91 L 04/20/20 08:00 91 L 04/20/20 04:17 94 L - Problem List & Annotations (1) Altered mental status SNOMED Code(s): 480560967 Code(s): R41.82 - ALTERED MENTAL STATUS, UNSPECIFIED Status: Resolved Priority: High Current Visit: Yes Qualifiers: Altered mental status type: unspecified Qualified Code(s): R41.82 - Altered mental status, unspecified (2) Aspiration pneumonia SNOMED Code(s): 007516113 Code(s): J69.0 - PNEUMONITIS DUE TO INHALATION OF FOOD AND VOMIT Status: Acute Priority: High Current Visit: Yes Qualifiers: Aspiration pneumonia type: unspecified Laterality: unspecified laterality Lung location: unspecified part of lung Qualified Code(s): J69.0 - Pneumonitis due to inhalation of food and vomit (3) Pleural effusion SNOMED Code(s): 92861919 Code(s): J90 - PLEURAL EFFUSION, NOT ELSEWHERE CLASSIFIED Status: Chronic Priority: Low Current Visit: No (4) Respiratory failure SNOMED Code(s): 388012218 Code(s): J96.90 - RESPIRATORY FAILURE, UNSP, UNSP W HYPOXIA OR HYPERCAPNIA Status: Resolved Priority: High Current Visit: Yes Qualifiers: Chronicity: acute Respiratory failure complication: hypoxia Qualified Code(s): J96.01 - Acute respiratory failure with hypoxia (5) Hypoxia SNOMED Code(s): 235803156 Code(s): R09.02 - HYPOXEMIA Status: Resolved Priority: High Current Visit: Yes (6) Elevated d-dimer SNOMED Code(s): 846932450 Code(s): R79.89 - OTHER SPECIFIED ABNORMAL FINDINGS OF BLOOD CHEMISTRY Status: Acute Priority: High Current Visit: Yes (7) Normocytic hypochromic anemia SNOMED Code(s): 51414693 Code(s): D50.9 - IRON DEFICIENCY ANEMIA, UNSPECIFIED Status: Acute Priority: Medium Current Visit: Yes (8) Disability due to neurological disorder SNOMED Code(s): 303709030 Code(s): R29.818 - OTHER SYMPTOMS AND SIGNS INVOLVING THE NERVOUS SYSTEM Status: Chronic Priority: High Current Visit: Yes (9) Progressive supranuclear palsy SNOMED Code(s): 509161652 Code(s): G23.1 - PROGRESSIVE SUPRANUCLEAR OPHTHALMOPLEGIA Status: Chronic Priority: High Current Visit: Yes (10) [facility] resident SNOMED Code(s): 725947845 Code(s): Z59.3 - PROBLEMS RELATED TO LIVING IN RESIDENTIAL INSTITUTION Status: Chronic Priority: Medium Current Visit: No (11) Progressive supranuclear ophthalmoplegia SNOMED Code(s): 69058786 Code(s): G23.1 - PROGRESSIVE SUPRANUCLEAR OPHTHALMOPLEGIA Status: Chronic Priority: Medium Current Visit: No (12) Swallowing impairment SNOMED Code(s): 912638004 Code(s): R13.10 - DYSPHAGIA, UNSPECIFIED Status: Chronic Priority: Medium Current Visit: No (13) Wheelchair bound SNOMED Code(s): 632227393, 560981050 Code(s): Z99.3 - DEPENDENCE ON WHEELCHAIR Status: Chronic Priority: Medium Current Visit: No (14) Sepsis SNOMED Code(s): 70136047 Code(s): A41.9 - SEPSIS, UNSPECIFIED ORGANISM Status: Resolved Priority: High Current Visit: Yes Qualifiers: Sepsis type: sepsis due to unspecified organism Sepsis acute organ dy sfunction status: with acute organ dysfunction Severe sepsis acute organ dysfunction type: unspecified Severe sepsis shock status: with septic shock Qualified Code(s): A41.9 - Sepsis, unspecified organism; R65.21 - Severe sepsis with septic shock - Problem List Review Problem List Initiated/Reviewed/Updated: Yes - My Orders Last 24 Hours: My Active Orders 04/19/20 Lunch Pureed Diet [DIET] Thickened Liquids [DIET] Cholecalciferol (Vitamin D3) [Vitamin D3] 5,000 unit PO DAILY 04/19/20 11:30 fentaNYL [Duragesic] 75 mcg TRDERM Q72H 04/19/20 12:00 LORazepam [Ativan] 1 mg PO 12,16 04/19/20 14:48 Patient Status [ADT] Routine 04/19/20 19:00 LORazepam [Ativan] 1 mg PO 07,04/19/20 21:00 Sertraline [Zoloft] 75 mg PO BEDTIME 04/20/20 09:15 Enoxaparin [Lovenox] 40 mg SUBCUT DAILY 04/20/20 12:00 Piperacillin/Tazobactam [Piperacil-Tazobact] 4.5 gm Sodium Chloride 0.9% [Normal Saline] 100 ml IV Q8H 04/21/20 05:11 CBC WITH AUTO DIFF [HEME] AM 04/22/20 05:11 CBC WITH AUTO DIFF [HEME] AM 04/22/20 11:30 Remove Patch 1 ea TRDERM Q72H 04/23/20 05:11 CBC WITH AUTO DIFF [HEME] AM 04/24/20 05:11 CBC WITH AUTO DIFF [HEME] AM - Plan Plan:: This is a 64 yo white male with past medical hx/o Impaired vision, hypertension, hyperlipidemia, aspiration pneumonia, recurrent pneumonia, chronic constipation, GERD, hiatal hernia, BPH, urinary retention, recurrent UTI, chronic back pain, osteoarthritis, history of falls, history of fractured ribs, chronic muscle spasm, polyarthritis, Parkinson's disease with speech problem, vertigo, 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 for the evaluation of hypoxia with O2 sat in the low 70s. Assessment: Acute: Acute on chronic aspiration pneumonia Respiratory for you respiratory failure requiring supplemental O2 Small Pleural Effusion, chronic Tachypnea with RR in the mid 20s Hypoxia with O2 sat in the low 70s on RA; 88% on 6L NC in ED Elevated D-dimer, Chest CTA negative for PE Severe sepsis with septic shock, resolved -Risk factors: Progressive neuromuscular disease, supranuclear ophthalmoplegia, speech disorder, dysphagia, chronic sedation from multiple medications -Has underlying GERD as well as hiatal hernia -Hypoxic at the [facility] with O2 sat in the 70s -Initially put on simple mask by EMS -Currently on 2 L nasal cannula with oxygen saturations in the low 90's -Repeat CXR on 04/20/20 shows worsening density in the left lung base -Procalcitonin negative and no leukocytosis -Chest CTA shows patchy pulmonary infiltrate and small pleural effusion -Concern for oversedation as patient was just placed on increased fentanyl patch per SNF paperwork -Noted to be hypotensive overnight. IV fluid bolus given in AM -Plan: IV Zosyn for Aspiration, PRN decongestant/expectorant, IS/FV as directed, RT to assess and treat, PRN Bronchodilators, and Serial chest x-ray as indicated. Normocytic Hypochromic Anemia with Hgb of 13.4-->12.0 grams -He carries a hx/o chronic anemia by EMR -No report of rectal bleeding or melena -He is not on antiplatelet or anti-coagulation Debility/Generalized Weakness -Secondary to progressive neurological disease -Will check for vit D and TSH -PT/OT for deconditioning Resolved: AMS/Metabolic Encephalopathy Polypharmacy -Patient is altered -Risk factors: on multiple medications -He is on the following maintenance medications baclofen 10 mg p.o. 4 times daily, carbidopa/levodopa 25772 tab p.o. 4 times daily, cyclobenzaprine 5 mg p.o. 3 times daily, fentanyl 125 mcg transdermal every 72 hours, gabapentin 200 mg p.o. 3 times daily, hydromorphone 2 mg p.o. every 6 as needed for pain, Ativan 1 mg p.o. twice daily, and Trazodone 150 mg p.o. 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 Sepsis work up. Inflammatory markers. Resume home medications with caution for over sedation Aspiration precautions. Fall precautions. Empiric IV Antibiotic with IV Zosyn. May add IV Vancomycin given his hx/o MRSA in the past. Discontinue IV fluids. PT/OT. Additional orders as above. Code status is DNR/DNI. Prognosis is guarded.
--- NOTE | 2020-04-20 12:06 | PCM.SN.2 ---
- Free Text/Narrative Note: 1150 Called to room 10 for IV start #[id number]. right arm good flush good blood return out of room at 1205
[2020-04-20] MEDS: Sertraline 50 MG Tab PO SCH (20:15)
[2020-04-21] MEDS: Piperacillin/Tazobactam 4.5 GM in Sodium Chloride 0.9% 100 ML IV SCH ×2 (04:25→11:47)
[2020-04-21] MEDS: LORazepam 1 MG Tab PO SCH ×2 (07:03→11:42)
[2020-04-21] MEDS: Gabapentin 100 MG Cap PO SCH ×2 (07:58→08:21)
[2020-04-21] MEDS: Carbidopa/Levodopa 25-100 MG Tab PO SCH ×2 (07:59→13:07)
[2020-04-21] MEDS: busPIRone 15 MG Tab PO SCH (07:59)
[2020-04-21] MEDS: Celecoxib 100 MG Cap PO SCH (07:59)
[2020-04-21] MEDS ORDERED: Magnesium Sulfate/Water 2 GM/50 ML BAG IV ONE (08:00)
[2020-04-21] MEDS: Cyclobenzaprine 10 MG Tab PO SCH (08:00)
[2020-04-21] MEDS: Baclofen 10 MG Tab PO SCH ×2 (08:00→13:07)
[2020-04-21] MEDS: Enoxaparin 40 MG/0.4 ML Syringe SUBCUT SCH (08:00)
[2020-04-21] MEDS: Cholecalciferol (Vitamin D3) 5,000 UNIT Cap PO SCH (08:00)
--- NOTE | 2020-04-21 08:22 | PCM.DCSUM1 ---
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 EMS was called and at the scene, he was put on supplemental O2 immediately. His O2 sat improved in the 90s. Patient is altered and unable to provide history of present illness. He does carry a history of recurrent aspiration pneumonia. Patient work-up in the emergency department shows a CBC remarkable for hemoglobin of 13.4, MCHC of 31.5, platelet of 110, neutrophils of 69.2%, and lymphocyte of 1.29. His D-dimer is elevated at 1.13. His chemistry is significant for creatinine of 0.6 and ALT of 11. His UA is not suggestive of urinary tract infection but notable for trace protein. In the emergency department, he has a stable blood pressure with normal temperature. His heart rate is within normal limits. However he is tachypneic with respiratory rate as high as 24 with O2 sat of 88% on 6 L nasal cannula. His chest CTA shows patchy pulmonary infiltrate in the left side with mild pleural effusion. Patient received initial treatment and work-up in the emergency department prior to coming in for further management of aspiration pneumonia. Diagnosis: Stroke: No - Discharge Data Discharge Date: 04/21/20 (Admit date: 04/18/20) Discharge Disposition: DC/Tfer to SNF 03 Condition: Good - Referral to Home Health Primary Care Physician: Nik Hughes MD - Discharge Diagnosis/Problem(s) (1) Altered mental status SNOMED Code(s): 605690850 ICD Code: R41.82 - ALTERED MENTAL STATUS, UNSPECIFIED Status: Resolved Priority: High Current Visit: Yes Qualifiers: Altered mental status type: unspecified Qualified Code(s): R41.82 - Altered mental status, unspecified (2) Aspiration pneumonia SNOMED Code(s): 238719439 ICD Code: J69.0 - PNEUMONITIS DUE TO INHALATION OF FOOD AND VOMIT Status: Acute Priority: High Current Visit: Yes Qualifiers: Aspiration pneumonia type: unspecified Laterality: unspecified laterality Lung location: unspecified part of lung Qualified Code(s): J69.0 - Pneumonitis due to inhalation of food and vomit (3) Pleural effusion SNOMED Code(s): 53429377 ICD Code: J90 - PLEURAL EFFUSION, NOT ELSEWHERE CLASSIFIED Status: Chronic Priority: Low Current Visit: No (4) Respiratory failure SNOMED Code(s): 575873195 ICD Code: J96.90 - RESPIRATORY FAILURE, UNSP, UNSP W HYPOXIA OR HYPERCAPNIA Status: Resolved Priority: High Current Visit: Yes Qualifiers: Chronicity: acute Respiratory failure complication: hypoxia Qualified Code(s): J96.01 - Acute respiratory failure with hypoxia (5) Hypoxia SNOMED Code(s): 747521414 ICD Code: R09.02 - HYPOXEMIA Status: Resolved Priority: High Current Visit: Yes (6) Elevated d-dimer SNOMED Code(s): 415287623 ICD Code: R79.89 - OTHER SPECIFIED ABNORMAL FINDINGS OF BLOOD CHEMISTRY Status: Acute Priority: High Current Visit: Yes (7) Normocytic hypochromic anemia SNOMED Code(s): 87713731 ICD Code: D50.9 - IRON DEFICIENCY ANEMIA, UNSPECIFIED Status: Acute Priority: Medium Current Visit: Yes (8) Disability due to neurological disorder SNOMED Code(s): 571039793 ICD Code: R29.818 - OTHER SYMPTOMS AND SIGNS INVOLVING THE NERVOUS SYSTEM Status: Chronic Priority: High Current Visit: Yes (9) Progressive supranuclear palsy SNOMED Code(s): 680855239 ICD Code: G23.1 - PROGRESSIVE SUPRANUCLEAR OPHTHALMOPLEGIA Status: Chronic Priority: High Current Visit: Yes (10) penit[place]iary resident SNOMED Code(s): 470386428 ICD Code: Z59.3 - PROBLEMS RELATED TO LIVING IN RESIDENTIAL INSTITUTION Status: Chronic Priority: Medium Current Visit: No (11) Progressive supranuclear ophthalmoplegia SNOMED Code(s): 20533635 ICD Code: G23.1 - PROGRESSIVE SUPRANUCLEAR OPHTHALMOPLEGIA Status: Chronic Priority: Medium Current Visit: No (12) Swallowing impairment SNOMED Code(s): 819111986 ICD Code: R13.10 - DYSPHAGIA, UNSPECIFIED Status: Chronic Priority: Medium Current Visit: No (13) Wheelchair bound SNOMED Code(s): 682426109, 611898399 ICD Code: Z99.3 - DEPENDENCE ON WHEELCHAIR Status: Chronic Priority: Medium Current Visit: No (14) Sepsis SNOMED Code(s): 74123657 ICD Code: A41.9 - SEPSIS, UNSPECIFIED ORGANISM Status: Resolved Priority: High Current Visit: Yes Qualifiers: Sepsis type: sepsis due to unspecified organism Sepsis acute organ dysfunction status: with acute organ dysfunction Severe sepsis acute organ dysfunction type: unspecified Severe sepsis shock status: with septic shock Qualified Code(s): A41.9 - Sepsis, unspecified organism; R65.21 - Severe sepsis with septic shock (15) Vitamin D deficiency SNOMED Code(s): 52773490 ICD Code: E55.9 - VITAMIN D DEFICIENCY, UNSPECIFIED Status: Acute P riority: High Current Visit: Yes - Patient Summary/Data Consults: Consultations 04/18/20 19:25 Consult to Case Management/Cylinder Filler [CONS] Routine Consult to Spiritual Care [CONS] Routine OT Evaluation and Treatment [CONS] Routine PT Evaluation and Treatment [CONS] Routine Respiratory Care Assess and Treatment [CONS] Routine EYEDOTTER Evaluation and Treatment [CONS] Routine Labs Pending at D/C: None Recommended Follow-up Testing/Procedures: Follow-up with primary care provider within 5-7 days of discharge, sooner if needed. -Recommend re-check CBC, CMP, and magnesium at that visit -Consider repeat CXR at that visit Hospital Course: This is a 64-year-old who is well-known to this service with multiple prior episodes of aspiration pneumonia and a progressive neurological disease who presented to ED on 04/18/20 with hypoxia altered mental status. He was noted to have saturations in the low 70s at [facility] where he resides. He was placed on tension and was requiring up to 7 L by simple mask to maintain his saturations. There was no leukocytosis and his CRP remained minimal but there were changes noted on the left side of his chest x-ray. Procalcitonin was obtained on admission was negative as well. Blood cultures remained negative throughout his stay. He was started on Zosyn. He was noted to have an elevated D-dimer but set chest CTA was negative for PE. Initially overnight on admission he was noted to be hypotensive and a 1 L fluid bolus was given with good results. Because of this he was ruled septic. In reviewing his prior SNF notes it was noted that his fentanyl patch was just increased as well as an antidepressant. 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 He was able to be weaned down on oxygen however repeat chest x-ray on 04/20/2020 showed worsening density within the left lung base. He was coached and frequently use his incentive spirometry and Acapella. He was able to be weaned off of oxygen with good saturations prior to discharge. He initially was noted to have an altered mental status when he arrived and his fentanyl patch was decreased from 125 mcg to 75 mcg. He tolerated this well and returned to his baseline mental status. He was noted to have some continued episodes of confusion, especially in the overnight hours, but this would resolve during the day. He was noted to be anemic which was worsened by IV fluids but this was chronic for him. There were no signs of any bleeding. Vitamin D was obtained and he was started on 5000 units of daily supplementation as it was low. TSH and T4 were obtained and his TSH was noted to be low however T4 was within normal limits. He did work with PT and OT and was able to stand and take a few steps with them at bedside. PT and OT should continue at SNF. Patient sister who is also his power of securities attorney was at bedside we did have a discussion about patient's overall prognosis. As noted patient is alert and orientated and therefore can make his own medical decisions. POA states the family is aware that he will likely require hospice at some point, but she agrees that he does have some drive and will to live. He did have a feeding tube at one-point and ultimately this was removed at the patient's request. Discussed this with the patient and he agrees that he will not do a feeding tube again. He is aware that he will likely continue to worsen and will continue to aspirate. As of this moment he is not in agreement to comfort cares, but it is soft and that will need to be addressed in the future as he continues to worsen. Patient will be discharged back to [facility] today. Continue PT/OT at senior living. He will be prescribed 500 units of daily vitamin D. Will be prescribed 7 more days of every 12 hour Augmentin for his aspiration pneumonia. He was weaned off of oxygen but SNF staff should continue to monitor and apply oxygen per their protocol as needed. His fentanyl patch was also changed from 125 mcg to 75 mcg every 72 hours. All other home medications were continued. Because of patient's altered mental status he did see our speech-language pathologist while here to clear him for eating. Apparently there was some confusion as the patient's transfer orders reportedly noted the patient is on a pured diet. Per dietary this is not the case and the patient is usually on a less restrictive modified diet. Unfortunately EYEDOTTER only evaluated the patient up to the pured level and this will need to be reassessed at SNF. He remains on nectar thickene d liquids. And follow-up with PCP within 5 to 7 days of discharge, sooner if needed. Recommend recheck CBC, CMP, and magnesium at that time. Consider repeat chest x-ray at that appointment. - Patient Instructions Diet: Pureed Diet, Other: Recommend EYEDOTTER follow-up - see neuropsychiatric aide note Activity: As Tolerated Showering/Bathing: May Shower Notify Provider of: Fever, Increased Pain, Nausea and/or Vomiting Other/Special Instructions: Follow-up with primary care provider within 5-7 days of discharge, sooner if needed. Resume home medications as directed. We decreased your fentanyl patch dosing as we felt it, combined with many of your other medications, was causing you to be too sleepy. You were prescribed an antibiotic for your aspiration pneumonia. Take this as directed until gone, even if you feel 100% better. SNF staff to monitor oxygen saturations. Apply oxygen if saturations are below 90% per protocol. Continue to utilize your incentive spirometer (clear/blue device you inhale through) and acapella (green tube you blow through) for 1-2 weeks or until symptoms resolve. - Discharge Plan *PRESCRIPTION DRUG MONITORING PROGRAM REVIEWED*: No *COPY OF PRESCRIPTION DRUG MONITORING REPORT IN PATIENT DINESH: No Prescriptions/Med Rec: Amoxicillin/Potassium Clav [Augmentin 875-125 Tablet] 1 each PO BID #13 tablet fentaNYL [Duragesic] 75 mcg TRDERM Q72H #5 patch Remove Patch 1 ea TRDERM Q72H #5 each Cholecalciferol (Vitamin D3) [Vitamin D3] 5,000 unit PO DAILY #20 cap Home Medications: Home Meds Acetaminophen [Tylenol Arthritis Pain] 650 mg PO Q6H PRN #120 dose 10/22/19 [Rx] Carbidopa/Levodopa [Carbidopa-Levodopa 25-100] 1 tab PO QID #120 tablet 10/22/19 [Rx] Gabapentin [Neurontin] 200 mg PO TID #120 dose 10/22/19 [Rx] Losartan [Cozaar] 50 mg PO DAILY #30 dose 10/22/19 [Rx] Magnesium Oxide [Magnesium] 400 mg PO BID #60 dose 10/22/19 [Rx] Ondansetron [Zofran ODT] 4 mg PO Q6H PRN #20 tab.dis 10/22/19 [Rx] Simvastatin 20 mg PO BEDTIME #30 dose 10/22/19 [Rx] Terazosin [Hytrin] 5 mg PO BID #60 cap 10/22/19 [Rx] busPIRone [Buspar] 15 mg PO BID #60 tablet 10/22/19 [Rx] Baclofen 10 mg PO QID 12/14/19 [History] LORazepam [Ativan] 1 mg PO ,16 12/14/19 [History] Sennosides/Docusate Sodium [Senna Plus 8.6-50 mg Tablet] 1 tab PO DAILY 12/14/19 [History] Sennosides/Docusate Sodium [Senna Plus Tablet] 1 each PO TID PRN 12/14/19 [History] Trolamine Salicylate/Aloe Vera [Aspercreme 10% Cream] 2 gm TP Q4H PRN 12/14/19 [History] hydroCHLOROthiazide [Hydrochlorothiazide] 12.5 mg PO DAILY 12/14/19 [History] polyethylene glycoL 3350 [MiraLAX] 17 gram PO DAILY 12/14/19 [History] Remove Patch 1 ea TRDERM Q72H each 12/20/19 [Rx] Celecoxib 200 mg PO DAILY 02/11/20 [History] Cyclobenzaprine [Flexeril] 5 mg PO TID 02/11/20 [History] LORazepam [Ativan] 1 mg PO 07,19 02/11/20 [History] Sertraline [Zoloft] 75 mg PO BEDTIME 02/11/20 [History] guaiFENesin [Mucinex] 600 mg PO TID 02/11/20 [History] traZODone HCl [Trazodone HCl] 150 mg PO BEDTIME 02/11/20 [History] HYDROmorphone [Dilaudid] 2 mg PO Q6H PRN 02/26/20 [History] Amoxicillin/Potassium Clav [Augmentin 875-125 Tablet] 1 each PO BID #13 tablet 04/21/20 [Rx] Cholecalciferol (Vitamin D3) [Vitamin D3] 5,000 unit PO DAILY #20 cap 04/21/20 [Rx] Remove Patch 1 ea TRDERM Q72H #5 each 04/21/20 [Rx] fentaNYL [Duragesic] 75 mcg TRDERM Q72H #5 patch 04/21/20 [Rx] Oxygen Therapy Mode: Room Air Maintain SpO2% greater than: 90 Patient Handouts: Sepsis, Diagnosis, Adult, Progressive Supranuclear Palsy Forms: ED Department Discharge Referrals: Nik Hughes MD [Primary Care Provider] - 05/01/20 1:15 pm (Please come 15 minutes prior to the appointment to register.) - Discharge Summary/Plan Comment DC Time >30 min.: Yes (45 mins ) - General Info Date of Service: 04/21/20 Admission Dx/Problem (Free Text: Aspiration pneumonia Functional Status: Reports: Pain Controlled, Tolerating Diet, Ambulating (Taking a few steps), Urinating, Incentive Spirometry, Other (Acapella). Denies: New Symptoms - Review of Systems General: Reports: No Symptoms. Denies: Fever, Weakness, Fatigue, Malaise, Chills HEENT: Reports: No Symptoms. Denies: Headaches, Visual Changes Pulmonary: Reports: No Symptoms. Denies: Shortness of Breath, Cough, Sputum, Wheezing Cardiovascular: Reports: No Symptoms. Denies: Chest Pain, Palpitations, Dyspnea on Exertion, Edema Gastrointestinal: Reports: No Symptoms. Denies: Abdominal Pain, Constipation, Diarrhea, Nausea, Vomiting Genitourinary: Reports: No Symptoms. Denies: Pain Musculoskeletal: Reports: Neck Pain (Chronic), Shoulder Pain (Chronic left), Arm Pain (Chronic left), Leg Pain (Chronic) Skin: Reports: No Symptoms. Denies: Cyanosis Neurological: Reports: Pre-Existing Deficit (Baseline neuromuscular disease resulting in spasticity and contractures), Difficulty Walking, Gait Disturbance. Denies: Confusion Psychiatric: Reports: No Symptoms - Patient Data Vitals - Most Recent: Last Vital Signs Temp 97.9 F 04/21/20 07:37 Pulse 71 04/21/20 07:37 Resp 16 04/21/20 07:37 BP 130/75 04/21/20 07:37 Pulse Ox 94 L 04/21/20 07:37 Weight - Most Recent: 148 lb 3.2 oz I&O - Last 24 hours: Intake & Output 04/20/20 04/21/20 04/21/20 22:59 06:59 14:59 Intake Total 737 275 Output Total 400 475 Balance 337 -200 Lab Results - Last 24 hrs: Laboratory Results - last 24 hr 04/21/20 04/21/20 Range/Units 05:38 05:38 WBC 4.68 (4.23-9.07) K/mm3 RBC 4.38 L (4.63-6.08) M/mm3 Hgb 12.3 L (13.7-17.5) gm/dl Hct 38.8 L (40.1-51.0) % MCV 88.6 (79.0-92.2) fl MCH 28.1 (25.7-32.2) pg MCHC 31.7 L (32.2-35.5) g/dl RDW Std Deviation 41.9 (35.1-43.9) fL Plt Count 139 L (163-337) K/mm3 MPV 11.3 (9.4-12.3) fl Neut % (Auto) 42.1 (34.0-67.9) % Lymph % (Auto) 38.9 (21.8-53.1) % [place] % (Auto) 10.5 (5.3-12.2) % Eos % (Auto) 7.9 H (0.8-7.0) Baso % (Auto) 0.4 (0.1-1.2) % Neut # (Auto) 1.97 (1.78-5.38) K/mm3 Lymph # (Auto) 1.82 (1.32-3.57) K/mm3 [place] # (Auto) 0.49 (0.30-0.82) K/mm3 Eos # (Auto) 0.37 (0.04-0.54) K/mm3 Baso # (Auto) 0.02 (0.01-0.08) K/mm3 Sodium 145 (136-145) mEq/L Potassium 3.5 (3.5-5.1) mEq/L Chloride 107 (98-107) mEq/L Carbon Dioxide 30 (21-32) mEq/L Anion Gap 11.5 (5-15) BUN 14 (7-18) mg/dL Creatinine 0.7 (0.7-1.3) mg/dL Est Cr Clr Drug Dosing 104.03 mL/min Estimated GFR (MDRD) > 60 (>60) mL/min BUN/Creatinine Ratio 20.0 H (14-18) Glucose 68 L (80-115) mg/dL Calcium 8.5 (8.5-10.1) mg/dL Magnesium 1.7 L (1.8-2.4) mg/dl C-Reactive Protein 12.1 H* (<1.0) mg/dL TYREE Results - Last 24 hrs: Microbiology 04/18/20 16:42 Aerobic Blood Culture - Preliminary Blood - Venous - Lab Draw NO GROWTH AFTER 2 DAYS Anaerobic Blood Culture - Final 04/18/20 16:32 Aerobic Blood Culture - Preliminary Blood - Venous NO GROWTH AFTER 2 DAYS Anaerobic Blood Culture - Preliminary NO GROWTH AFTER 2 DAYS Med Orders - Current: Current Medications Acetaminophen (Tylenol) 650 mg RECTAL Q4H PRN PRN Reason: Pain (mild 1-3) Acetaminophen (Tylenol) 650 mg PO Q4H PRN PRN Reason: Pain (Mild 1-3)/fever Last Admin: 04/19/20 09:57 Dose: 650 mg Documented by: Albuterol/Ipratropium (Duoneb 3.0-0.5 Mg/3 Ml) 3 ml NEB Q4H PRN PRN Reason: Shortness Of Breath/wheezing Baclofen (Lioresal) 10 mg PO QID [facility] Last Admin: 04/21/20 08:00 Dose: 10 mg Documented by: Buspirone HCl (Buspar) 15 mg PO BID [facility] Last Admin: 04/21/20 07:59 Dose: 15 mg Documented by: Carbidopa/Levodopa (Sinemet 25-100 Mg) 1 tab PO QID [facility] Last Admin: 04/21/20 07:59 Dose: 1 tab Documented by: Celecoxib (Celebrex) 200 mg PO DAILY [facility] Last Admin: 04/21/20 07:59 Dose: 200 mg Documented by: Cholecalciferol (Vitamin D3) 5,000 unit PO DAILY [facility] Last Admin: 04/21/20 08:00 Dose: 5,000 unit Documented by: Cyclobenzaprine HCl (Flexeril) 5 mg PO TID [facility] Last Admin: 04/21/20 08:00 Dose: 5 mg Documented by: Enoxaparin Sodium (Lovenox) 40 mg SUBCUT DAILY [facility] Last Admin: 04/21/20 08:00 Dose: 40 mg Documented by: Fentanyl (Duragesic) 75 mcg TRDERM Q72H [facility] Last Admin: 04/19/20 11:24 Dose: 75 mcg Documented by: Gabapentin (Neurontin) 200 mg PO TID [facility] Last Admin: 04/21/20 07:58 Dose: 200 mg Documented by: Guaifenesin/Phenylephrine HCl (Robitussin Dm) 10 ml PO Q4H PRN PRN Reason: Cough Hydromorphone HCl (Dilaudid) 2 mg PO Q6H PRN PRN Reason: Pain Last Admin: 04/20/20 08:40 Dose: 2 mg Documented by: Promethazine HCl 12.5 mg/ (Sodium Chloride) 50.5 mls @ 100 mls/hr IV Q6H PRN PRN Reason: Nausea/Vomiting Piperacillin Sod/Tazobactam (Sod 4.5 gm/ Sodium Chloride) 100 mls @ 25 mls/hr IV Q8H [facility] Last Admin: 04/21/20 04:25 Dose: 25 mls/hr Documented by: Magnesium Sulfate (Magnesium Sulfate In Water 2 Gm/50 Ml) 2 gm in 50 mls @ 25 mls/hr IV ONETIME ONE Stop: 04/21/20 09:59 Lorazepam (Ativan) 2 mg IVPUSH Q4H PRN PRN Reason: Seizures Lorazepam (Ativan) 1 mg IVPUSH Q4H PRN; Protocol PRN Reason: restlessness Last Admin: 04/19/20 02:21 Dose: 1 mg Documented by: Lorazepam (Ativan) 1 mg PO 12,16 [facility] Last Admin: 04/20/20 16:16 Dose: 1 mg Documented by: Lorazepam (Ativan) 1 mg PO 07,19 [facility] Last Admin: 04/21/20 07:03 Dose: 1 mg Documented by: Miscellaneous Information (Remove Patch) 1 ea TRDERM Q72H [facility] Ondansetron HCl (Zofran) 4 mg IV Q6H PRN PRN Reason: Nausea/Vomiting Polyethylene Glycol (Miralax) 17 gm PO DAILY [facility] Last Admin: 04/20/20 08:36 Dose: 17 gm Documented by: Senna/Docusate Sodium (Senna Plus) 1 tab PO DAILY [facility] Last Admin: 04/21/20 07:59 Dose: 1 tab Documented by: Sertraline HCl (Zoloft) 75 mg PO BEDTIME [facility] Last Admin: 04/20/20 20:15 Dose: 75 mg Documented by: Sodium Chloride (Saline Flush) [facility] Last Admin: 04/18/20 18:37 Dose: 10 ml Documented by: Trolamine Salicylate (Aspercreme 10%) 0 gm TOP Q4H PRN PRN Reason: Pain (mild 1-3) Discontinued Medications Amoxicillin/Clavulanate Potassium (Augmentin 875 Mg/125 Mg) 1 tab PO Q12H [facility] Last Admin: 04/20/20 09:57 Dose: Not Given Documented by: Sodium Chloride (Normal Saline) 1,000 mls @ 100 [facility]ls[facility] Last Admin: 04/18/20 17:55 Dose: 100 mls/hr Documented by: Sodium Chloride (Normal Saline) 100 mls @ 60 mls/hr IV [facility] Last Admin: 04/18/20 18:37 Dose: 60 mls/hr Documented by: Piperacillin Sod/Tazobactam (Sod 4.5 gm/ Sodium Chloride) 100 mls @ 25 mls/hr IV Q8H [facility] Last Admin: 04/20/20 04:17 Dose: 25 mls/hr Documented by: Dextrose/Sodium Chloride (Dextrose 5%-Normal Saline) 1,000 mls @ 75 mls[facility]hr [facility] Last Admin: 04/19/20 12:35 Dose: 75 mls/hr Documented by: Piperacillin Sod/Tazobactam (Sod 4.5 gm/ Sodium Chloride) 100 mls @ 200 mls/hr IV ONETIME ONE Stop: 04/18/20 20:29 Last Admin: 04/18/20 20:16 Dose: 200 mls/hr Documented by: Lactated Ringer's (Ringers, Lactated) 1,000 mls @ 999 mls/hr IV .BOLUS ONE Stop: 04/19/20 06:26 Last Admin: 04/19/20 06:07 Dose: 999 mls/hr Documented by: Iopamidol (Isovue-370 (76%)) 100 ml IVPUSH ONETIME ONE Stop: 04/18/20 18:10 Last Admin: 04/18/20 18:37 Dose: 100 ml Documented by: Miscellaneous Information (Remove Patch) 1 ea TRDERM ONETIME ONE Stop: 04/19/20 11:01 Last Admin: 04/19/20 11:25 Dose: 1 ea Documented by: Terazosin HCl (Hytrin) 5 mg PO BID [facility] Last Admin: 04/19/20 10:15 Dose: Not Given Documented by: - Exam Quality Assessment: Reports: DVT Prophylaxis. Denies: Supplemental Oxygen, Urine Catheter General: Reports: Alert, Oriented, Cooperative, No Acute Distress HEENT: Reports: Pupils Equal, Pupils Reactive, Mucous Membr. Moist/[place] Neck: Reports: Supple, Trachea Midline Lungs: Reports: Clear to Auscultation, Normal Respiratory Effort, Decreased Breath Sounds Cardiovascular: Reports: Regular Rate, Regular Rhythm GI/Abdominal Exam: Normal Bowel Sounds, Soft, Non-Tender, No Distention (Male) Exam: Deferred Rectal (Males) Exam: Deferred Extremities: Non-Tender, No Pedal Edema, Normal Capillary Refill, Leg Pain (Chronic), Limited Range of Motion (Chronic), Other (Baseline chronic contractures) Skin: Reports: Warm, Dry, Intact Neurological: Reports: No New Focal Deficit Psy/Mental Status: Reports: Alert, Normal Affect, Normal Mood
[2020-04-21] MEDS: Polyethylene Glycol 3350 Powder 17 GM Packet PO SCH (08:40)
[2020-04-21] MEDS: HYDROmorphone 2 MG Tab PO PRN (08:46)
[2020-04-21] MEDS: Acetaminophen 325 MG Tab PO PRN (11:43)
== END 2020-04-21 13:20 | DRG 871 ==
LOC: JD.ED 15:49 → JD.ICU 19:25 → JD.MS 04-19 16:55
PROVIDERS: ADMIT Internal Medicine; ATTEND Internal Medicine
DX: A41.9 Sepsis, unspecified organism (principal); J69.0 Pneumonitis due to inhalation of food and vomit; E78.00 Pure hypercholesterolemia, unspecified; J96.01 Acute respiratory failure with hypoxia; R65.21 Severe sepsis with septic shock; J90 Pleural effusion, not elsewhere classified; G23.1 Progressive supranuclear ophthalmoplegia [Steele-Richardson-Olszewski]; Z66 Do not resuscitate; D50.9 Iron deficiency anemia, unspecified; R29.818 Other symptoms and signs involving the nervous system; H54.7 Unspecified visual loss; I10 Essential (primary) hypertension; E78.5 Hyperlipidemia, unspecified; K59.09 Other constipation; K21.9 Gastro-esophageal reflux disease without esophagitis; G47.00 Insomnia, unspecified; K44.9 Diaphragmatic hernia without obstruction or gangrene; N40.0 Benign prostatic hyperplasia without lower urinary tract symptoms; R33.9 Retention of urine, unspecified; G89.29 Other chronic pain; M54.9 Dorsalgia, unspecified; M19.90 Unspecified osteoarthritis, unspecified site; G20 Parkinson's disease; F41.9 Anxiety disorder, unspecified; F32.9 Major depressive disorder, single episode, unspecified; G47.30 Sleep apnea, unspecified; R53.81 Other malaise; D64.9 Anemia, unspecified; Z79.899 Other long term (current) drug therapy; Z87.01 Personal history of pneumonia (recurrent); Z87.440 Personal history of urinary (tract) infections; Z91.81 History of falling; Z86.14 Personal history of Methicillin resistant Staphylococcus aureus infection
CPT/HCPCS: 36415; 71045; 71275; 80053; 81001; 82550; 82553; 83605; 83735; 84145; 84484; 85025; 85379; 86140; 87040 ×2; 99285; J7030; Q9967; 36410; 70450; 70450-26; 80048; 82306; 84439; 84443; 85652; 92610-GN; 94668; 94762; 97110-GP; 97162-GP; 97167-GO; 97530-GO; 97530-GP; 97535-GO; 99233; 99239; 99283; 99291; A9270-GY; J1650; J2060; J2543; J3475; J7042; J7120

== ENCOUNTER 2020-06-14 08:57 | Day surgery (SDC) | payer MEDICARE, OTHER ==
[~2020-06-14 08:57] MED LIST changes: +Lactated Ringers 1,000 ML IV SCH; +Lidocaine 1%/Sod Bicarbonate in NS 8.4% 1 ML Syringe IDERM PRN; +Sodium Chloride 0.9% 10 ML Syringe FLUSH PRN; -fentaNYL 75 MCG/HR Transdermal Patch TRDERM SCH
--- NOTE | 2020-06-14 09:30 | PCM.PREANE ---
Preanesthetic Assessment - Procedure Proposed Procedure: percutaneous endoscopic gastrostomy tube placement - Anesthesia/Transfusion/Family Hx Anesthesia History: Unknown Family History of Anesthesia Reaction: No Transfusion History: No Prior Transfusion(s) - Review of Systems General: No Symptoms Pulmonary: No Symptoms Cardiovascular: No Symptoms Gastrointestinal: No Symptoms, Other (gerd dysphagia) Neurological: Difficulty Walking (weelchair bound) Other: Reports: Neck Pain, Depression, Anxiety - Physical Assessment NPO Status Date: 06/13/20 NPO Status Time: 23:59 Vital Signs: 109/69 72 93% 16 98.6 Height: 6 ft Weight: 67.948 kg ASA Class: 3 Mental Status: Alert & Oriented x3 Airway Class: Mallampati = 1 Dentition: Reports: Broken Tooth/Teeth, Caries Thyro-Mental Finger Breadths: 3 Mouth Opening Finger Breadths: 3 ROM/Head Extension: Limited/Partial Lungs: Clear to Auscultation, Normal Respiratory Effort Cardiovascular: Regular Rate, Regular Rhythm - Allergies Allergies/Adverse Reactions: Allergies Allergy/AdvReac Type Severity Reaction Status Date / Time No Known Allergies Allergy Verified 06/13/20 18:35 - Blood Blood Available: No - Acknowledgements Anesthesia Type Planned: General Anesthesia, MAC Pt an Appropriate Candidate for the Planned Anesthesia: Yes Alternatives and Risks of Anesthesia Discussed w Pt/Guardian: Yes Pt/Guardian Understands and Agrees with Anesthesia Plan: Yes PreAnesthesia Questionnaire HEENT History: Reports: Impaired Vision Other HEENT History: Wears glasses Cardiovascular History: Reports: High Cholesterol, Hypertension Respiratory History: Reports: Intubation, Previous, Pneumonia, Recurrent, Sleep Apnea Gastrointestinal History: Reports: Chronic Constipation, GERD, Hiatal Hernia Genitourinary History: Reports: BPH, Retention, Urinary, UTI, Recurrent 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 Psychiatric History: Reports: Anxiety, Depression Other Psychiatric History: insomnia Endocrine/Metabolic History: Reports: None Hematologic History: Reports: None Immunologic History: Reports: None Oncologic (Cancer) History: Reports: None Dermatologic History: Reports: None - Infectious Disease History Infectious Disease History: Reports: MRSA - Past Surgical History Head Surgeries/Procedures: Reports: None HEENT Surgical History: Reports: None Cardiovascular Surgical History: Reports: None Respiratory Surgical History: Reports: None GI Surgical History: Reports: Other (See Below) (peg placement in past) Female Surgical History: Reports: None Male Surgical History: Reports: Suprapubic Catheter Placement Endocrine Surgical History: Reports: None Neurological Surgical History: Reports: None Musculoskeletal Surgical History: Reports: None Oncologic Surgical History: Reports: None Dermatological Surgical History: Reports: None - History Comment History Comment: Patient has chronic severe generalized pain. He is currently on Dilaudid 2 mg 3 times daily and fentanyl patch. 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 - SUBSTANCE USE Tobacco Use Status *Q: Former Tobacco User Tobacco Use Within Last Twelve Months: No Second Hand Smoke Exposure: No Days Per Week of Alcohol Use: 0 Recreational Drug Use History: No - HOME MEDS Home Medications: Home Meds Carbidopa/Levodopa [Carbidopa-Levodopa 25-100] 1 tab PO QID #120 tablet 10/22/19 [Rx] Gabapentin [Neurontin] 200 mg PO TID #120 dose 10/22/19 [Rx] Losartan [Cozaar] 50 mg PO DAILY #30 dose 10/22/19 [Rx] Ondansetron [Zofran ODT] 4 mg PO Q6H PRN #20 tab.dis 10/22/19 [Rx] Simvastatin 20 mg PO BEDTIME #30 dose 10/22/19 [Rx] Terazosin [Hytrin] 5 mg PO BID #60 cap 10/22/19 [Rx] busPIRone [Buspar] 15 mg PO BID #60 tablet 10/22/19 [Rx] Baclofen 10 mg PO QID 12/14/19 [History] LORazepam [Ativan] 1 mg PO 12,16 12/14/19 [History] hydroCHLOROthiazide [Hydrochlorothiazide] 12.5 mg PO DAILY 12/14/19 [History] Celecoxib 200 mg PO DAILY 02/11/20 [History] Cyclobenzaprine [Flexeril] 5 mg PO TID 02/11/20 [History] LORazepam [Ativan] 1 mg PO ,02/11/20 [History] Sertraline [Zoloft] 75 mg PO BEDTIME 02/11/20 [History] guaiFENesin [Mucinex] 600 mg PO TID 02/11/20 [History] traZODone HCl [Trazodone HCl] 150 mg PO BEDTIME 02/11/20 [History] HYDROmorphone [Dilaudid] 2 mg PO Q6H PRN 02/26/20 [History] fentaNYL [Duragesic] 75 mcg TRDERM Q72H #5 patch 04/21/20 [Rx] - CURRENT (IN HOUSE) MEDS Current Meds: Current Medications Lactated Ringer's (Ringers, Lactated) 1,000 mls @ 125 mls/hr IV ASDIRECTED JASPER Stop: 06/14/20 23:00 Lidocaine/Sodium Bicarbonate (Lidocaine 1%/Sod Bicarbonate In Ns 8.4% 1 Ml Syringe) 0.25 ml IDERM ONETIME PRN PRN Reason: Prior to IV Start Stop: 06/14/20 18:00 Sodium Chloride (Sodium Chloride 0.9% 10 Ml Syringe) 10 ml FLUSH ASDIRECTED PRN PRN Reason: Keep Vein Open Stop: 06/14/20 18:00 Discontinued Medications Lactated Ringer's (Ringers, Lactated) 1,000 mls @ 125 mls/hr IV ASDIRECTED JASPER Stop: 06/07/20 23:00 Lidocaine/Sodium Bicarbonate (Lidocaine 1%/Sod Bicarbonate In Ns 8.4% 1 Ml Syringe) 0.25 ml IDERM ONETIME PRN PRN Reason: Prior to IV Start Stop: 06/07/20 18:00 Sodium Chloride (Sodium Chloride 0.9% 10 Ml Syringe) 10 ml FLUSH ASDIRECTED PRN PRN Reason: Keep Vein Open Stop: 06/07/20 18:00
[2020-06-14] MEDS ORDERED: Ketamine 500 mg/10 ML MDV ONE (11:17)
[2020-06-14] MEDS ORDERED: Lidocaine 1% 4 ML ONE (11:17)
[2020-06-14] MEDS ORDERED: Midazolam 1 MG/ML 2 ML SDV ONE (11:17)
[2020-06-14] MEDS ORDERED: fentaNYL 100 MCG/2 ML SDV ONE (11:17)
[2020-06-14] MEDS ORDERED: Propofol 200 MG/20 ML SDV ONE (11:17)
[2020-06-14] MEDS ORDERED: ceFAZolin 1 GM Vial ONE (11:55)
--- NOTE | 2020-06-14 12:37 | PCM.OPNOTE ---
- General Post-Op/Procedure Note Date of Surgery/Procedure: 06/14/20 Operative Procedure(s): EGD with Percutaneous endoscopic gastrostomy tube placement Findings: 1. Bile reflux 2. normal gastric anatomy with previous gastrostomy tube scar visible Pre Op Diagnosis: Feeding difficulties Post-Op Diagnosis: same Anesthesia Technique: Local, MAC Primary Surgeon: Socorro Morelos Anesthesia Provider: Obdulia Swanson Pathology: none Fluid Replacement, Intraop: 700 Output, Urine Amount: 0 EBL in mLs: 0 Drain/Tube Comments:: PEG tube in place Complications: none apparent Condition: Good
--- NOTE | 2020-06-14 12:39 | PCM.PRNOTE ---
- Free Text/Narrative Note: Operative Report Date of procedure: June 14, 2020 Preoperative diagnosis: Feeding difficulties Postoperative diagnosis: same Surgeon: Socorro Morelos M.D. Procedure: EGD with Percutaneous gastrostomy tube placement Anesthesia: MAC with local Nutritionist: Obdulia Swanson CRNA IV fluids: 700 Estimated blood loss: 3 mL Specimens: none. Indication: The patient is a 64-year-old gentleman who presented with feeding difficulties and trouble with weight gain. The patient was consented for an EGD with intervention. Risk of bleeding and perforation were discussed. The patient's consent was obtained Description of the procedure: The patient was taken to the endoscopy suite and placed on hemodynamic monitoring. The nurse fur operator induced MAC anesthesia. A bite block was placed. The patient was positioned in supine position. A timeout was performed. The endoscope was gently placed into the mouth to the back of the pharynx and introduced into the esophagus. The scope was gently advanced under direct visualization down to the level of the lower esophageal sphincter. The stomach was then entered. Normal rugal folds were noted. The scope was advanced into the antrum. We noted no specific abnormality. We then transilluminated the abdominal wall, and external palpation was noted via the endoscope. This area was marked. Lidocaine 1% was then infiltrated under the skin in this area. A 1.2cm incision was made in the skin. The needle and sheath were then passed into the stomach and visualized through the gastroscope. This was grasped with the snare and the guidewire was passed into the stomach through the sheath. The guidewire and scope were then pulled through the mouth. The gastrostomy tube was then passed over the wire and pulled through the abdominal wall without difficulty. The gastroscope was used to visualize this passing into the stomach. The gastrostomy tube was then seated to the abdominal wall and the bumper placed. It was placed to gravity drainage with return of gastric contents. The scope was then withdrawn. The procedure was terminated. the patient shameka ated the procedure well without any evidence of complications. Socorro Morelos MD General Surgery
[2020-06-14] MEDS ORDERED: Acetaminophen 325 MG/10.15 ML ML PO ONE (12:44)
== END 2020-06-14 14:23 | disposition home or self-care (01) ==
LOC: JD.SDS 08:57
PROVIDERS: ATTEND Surgery
DX: R63.3 Feeding difficulties (principal); I10 Essential (primary) hypertension; E78.00 Pure hypercholesterolemia, unspecified; G47.30 Sleep apnea, unspecified; Z86.010 Personal history of colon polyps; Z98.890 Other specified postprocedural states; Z79.899 Other long term (current) drug therapy; Z87.891 Personal history of nicotine dependence
CPT/HCPCS: 00731; J0690; J2250; J2704; J3010; J7120

== ENCOUNTER 2020-06-17 16:05 | Inpatient (IN) | payer MEDICARE, OTHER ==
[2020-06-17] MEDS ORDERED: Sodium Chloride 0.9% 10 ML Syringe FLUSH PRN (16:25)
[2020-06-17] MEDS ORDERED: valACYclovir 1,000 MG Tab PO ONE (16:28)
[2020-06-17] MEDS ORDERED: cefTRIAXone 2 GM in Sodium Chloride 0.9% 100 ML IV ONE (16:30)
--- NOTE | 2020-06-17 17:18 | EDM.PDOC ---
ED HPI GENERAL MEDICAL PROBLEM - General Chief Complaint: Abdominal Pain Stated Complaint: CHEST PAIN /SOB Time Seen by Provider: 06/17/20 16:13 Source of Information: Reports: Patient, Shelter Records History Limitations: Reports: No Limitations - History of Present Illness INITIAL COMMENTS - FREE TEXT/NARRATIVE: The patient presents from [facility] for a cough, shortness of breath and low oxygen saturations. This all started yesterday. The patient has a history of Parkinson's disease and progressive supraneuclear palsy. He has a history of recurrent pneumonia and aspiration pneumonia. He had a PEG tube recently placed on the 14 of June. He also has chest pain, abdominal pain and left arm pain. He has recurrent UTIs. He has a cough and the abdominal pain is near the PEG tube. Onset: Gradual Duration: Day(s): Location: Reports: Chest, Abdomen, Upper Extremity, Left (shoulder) Quality: Reports: Sharp Severity: Moderate Improves with: Reports: None Worsens with: Reports: None Associated Symptoms: Reports: Chest Pain, Cough, Shortness of Breath. Denies: Fever/Chills, Headaches, Nausea/Vomiting Middle Abdomen Pain Score (Numeric/FACES): 7 - Related Data Allergies Allergy/AdvReac Type Severity Reaction Status Date / Time No Known Allergies Allergy Verified 06/17/20 16:21 Home Meds: Home Meds Carbidopa/Levodopa [Carbidopa-Levodopa 25-100] 1 tab PO QID #120 tablet 10/22/19 [Rx] Gabapentin [Neurontin] 200 mg PO TID #120 dose 10/22/19 [Rx] Losartan [Cozaar] 50 mg PO DAILY #30 dose 10/22/19 [Rx] Ondansetron [Zofran ODT] 4 mg PO Q6H PRN #20 tab.dis 10/22/19 [Rx] Simvastatin 20 mg PO BEDTIME #30 dose 10/22/19 [Rx] Terazosin [Hytrin] 5 mg PO BID #60 cap 10/22/19 [Rx] Baclofen 10 mg PO QID 12/14/19 [History] LORazepam [Ativan] 1 mg PO BID 12/14/19 [History] hydroCHLOROthiazide [Hydrochlorothiazide] 12.5 mg PO DAILY 12/14/19 [History] Celecoxib 200 mg PO DAILY 12/25/20 [History] Cyclobenzaprine [Flexeril] 10 mg PO TID 02/11/20 [History] LORazepam [Ativan] 1 mg PO BID 02/11/20 [History] Sertraline [Zoloft] 100 mg PO BEDTIME 02/11/20 [History] traZODone HCl [Trazodone HCl] 150 mg PO BEDTIME 02/11/20 [History] HYDROmorphone [Dilaudid] 2 mg PO Q6H PRN 02/26/20 [History] fentaNYL [Duragesic] 75 mcg TRDERM Q72H #5 patch 04/21/20 [Rx] Acetaminophen [Tylenol] 650 mg PO Q6H PRN 06/17/20 [History] Lactose-Reduced Food/Fiber [Jevity 1.2 Nixon Liquid] 237 ml PEGTUBE TID PRN 06/17/20 [History] Magnesium Oxide 400 mg PO BID 06/17/20 [History] Sennosides/Docusate Sodium [Senna Plus 8.6-50 mg Softgel] 1 tab PO DAILY 06/17/20 [History] Sennosides/Docusate Sodium [Senna Plus 8.6-50 mg Softgel] 1 tab PO TID PRN 06/17/20 [History] Trolamine Salicylate/Aloe Vera [Aspercreme 10% Cream] 1 applic TOP Q4H PRN 06/17/20 [History] busPIRone [Buspar] 30 mg PO BID 06/17/20 [History] guaiFENesin [Mucinex] 600 mg PO TID 06/17/20 [History] polyethylene glycoL 3350 [MiraLAX] 17 gm PO DAILY 06/17/20 [History] Past Medical History HEENT History: Reports: Impaired Vision Other HEENT History: Wears glasses Cardiovascular History: Reports: High Cholesterol, Hypertension Respiratory History: Reports: Intubation, Previous, Pneumonia, Recurrent, Sleep Apnea Gastrointestinal History: Reports: Chronic Constipation, GERD, Hiatal Hernia Genitourinary History: Reports: BPH, Retention, Urinary, UTI, Recurrent [employer]NA[employer] OF [employer] History: Reports: None Musculoskeletal History: Reports: Arthritis, Back Pain, Chronic, Osteoarthritis Other Musculoskeletal History: fall; fractured ribs; muscle spasms; polyarthritis; progressive supranuclear opthalmoplegia; cervical disc Neurological History: Reports: Parkinson's, Speech Problems, Vertigo Other Neuro History: 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 Psychiatric History: Reports: Anxiety, Depression Other Psychiatric History: insomnia Endocrine/Metabolic History: Reports: None Hematologic History: Reports: None Immunologic History: Reports: None Oncologic (Cancer) History: Reports: None Dermatologic History: Reports: None - Infectious Disease History Infectious Disease History: Reports: MRSA - Past Surgical History Male Surgical History: Reports: Suprapubic Catheter Placement - History Comment History Comment: Patient has chronic severe generalized pain. He is currently on Dilaudid 2 mg 3 times daily and fentanyl patch. 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 Social & Family History - Family History Family Medical History: No Pertinent Family History - Tobacco Use Tobacco Use Status *Q: Never Tobacco User - Caffeine Use Caffeine Use: Reports: None - Recreational Drug Use Recreational Drug Use: No - Living Situation & Occupation Living situation: Reports: Single, Alone, Extended Care Facility ([facility] Occupation: Disabled ED ROS GENERAL - Review of Systems Review Of Systems: See Below Constitutional: Reports: No Symptoms HEENT: Reports: No Symptoms Respiratory: Reports: Shortness of Breath, Cough Cardiovascular: Reports: Chest Pain Endocrine: Reports: No Symptoms GI/Abdominal: Reports: Abdominal Pain. Denies: Nausea, Vomiting : Reports: No Symptoms Musculoskeletal: Reports: Shoulder Pain (left) ED EXAM, GI/ABD - Physical Exam Exam: See Below Exam Limited By: No Limitations General Appearance: Alert, No Apparent Distress Ears: Normal External Exam Nose: Normal Inspection Head: Atraumatic, Normocephalic, Other (Erythema and pustular rash) Neck: Normal Inspection Respiratory/Chest: No Respiratory Distress, Decreased Breath Sounds, Rhonchi Cardiovascular: Regular Rate, Rhythm, No Edema, No Murmur GI/Abdominal Exam: Soft, Non-Tender, No Organomegaly, No Mass Extremities: Other (Pain to the left shoulder) Neurological: Alert, Oriented #1 Interpretation EKG Date: 06/17/20 Time: 16:16 Rhythm: NSR Rate (Beats/Min): 89 [place]: Normal P-Wave: Present QRS: Normal ST-T: Normal QT: Normal Course - Vital Signs Last Recorded V/S: Last Vital Signs Temp 98.9 F 06/17/20 16:14 Pulse 80 06/17/20 18:25 Resp 16 06/17/20 18:25 BP 120/68 06/17/20 18:25 Pulse Ox 91 L 06/17/20 18:25 - Orders/Labs/Meds Orders: Active Orders 24 hr Category Date Time Status Cardiac Monitoring [RC] . DIRECTED Care 06/17/20 16:26 Active EKG Documentation Completion [RC] STAT Care 06/17/20 16:27 Active Insert Urinary Catheter [OM.PC] Stat Care 06/17/20 17:00 Ordered Oxygen Therapy [RC] PRN Care 06/17/20 16:26 Active Peripheral IV Care [RC] . DIRECTED Care 06/17/20 16:27 Active Urinary Catheter Assessment [RC] ASDIRECTED Care 06/17/20 17:07 Active Ang Chest [CT] Stat Exams 06/17/20 17:29 Taken Chest 1V Frontal [CR] Stat Exams 06/17/20 16:27 Taken CULTURE BLOOD [BC] Stat Lab 06/17/20 16:50 Received CULTURE BLOOD [BC] Stat Lab 06/17/20 17:05 Received Sodium Chloride 0.9% [Normal Saline] 100 ml Med 06/17/20 18:30 Active IV ASDIRECTED Sodium Chloride 0.9% [Saline Flush] Med 06/17/20 18:30 Active 10 ml FLUSH ASDIRECTED Sodium Chloride 0.9% [Saline Flush] Med 06/17/20 16:25 Active 10 ml FLUSH ASDIRECTED PRN Blood Culture x2 Reflex Set [OM.PC] Stat Oth 06/17/20 16:27 Ordered Peripheral IV Insertion Adult [OM.PC] Stat Oth 06/17/20 16:25 Ordered Medication Orders Sodium Chloride (Normal Saline) 100 mls @ 60 mls/hr IV ASDIRECTED JASPER Last Admin: 06/17/20 18:24 Dose: 60 mls/hr Documented by: [place] Sodium Chloride (Sodium Chloride 0.9% 10 Ml Syringe) 10 ml FLUSH ASDIRECTED PRN PRN Reason: Keep Vein Open Last Admin: 06/17/20 16:54 Dose: 10 ml Documented by: [place] Sodium Chloride (Sodium Chloride 0.9% 10 Ml Syringe) 10 ml FLUSH ASDIRECTED JASPER Last Admin: 06/17/20 18:23 Dose: 10 ml Documented by: [place] Labs: Laboratory Tests 06/17/20 06/17/20 06/17/20 Range/Units 16:25 16:28 16:50 WBC 6.22 (4.23-9.07) K/mm3 RBC 4.55 L (4.63-6.08) M/mm3 Hgb 12.8 L (13.7-17.5) gm/dl Hct 40.0 L (40.1-51.0) % MCV 87.9 (79.0-92.2) fl MCH 28.1 (25.7-32.2) pg MCHC 32.0 L (32.2-35.5) g/dl RDW Std Deviation 42.8 (35.1-43.9) fL Plt Count 127 L (163-337) K/mm3 MPV 11.0 (9.4-12.3) fl Neut % (Auto) 81.1 H (34.0-67.9) % Lymph % (Auto) 11.3 L (21.8-53.1) % [place] % (Auto) 4.8 L (5.3-12.2) % Eos % (Auto) 2.4 (0.8-7.0) Baso % (Auto) 0.2 (0.1-1.2) % Neut # (Auto) 5.05 (1.78-5.38) K/mm3 Lymph # (Auto) 0.70 L (1.32-3.57) K/mm3 [place] # (Auto) 0.30 (0.30-0.82) K/mm3 Eos # (Auto) 0.15 (0.04-0.54) K/mm3 Baso # (Auto) 0.01 (0.01-0.08) K/mm3 PT (9.7-12.0) SECONDS INR APTT (21.7-31.4) SECONDS D-Dimer, Quantitative (0.19-0.50) mg/L Sodium (136-145) mEq/L Potassium (3.5-5.1) mEq/L Chloride (98-107) mEq/L Carbon Dioxide (21-32) mEq/L Anion Gap (5-15) BUN (7-18) mg/dL Creatinine (0.7-1.3) mg/dL Est Cr Clr Drug Dosing mL/min Estimated GFR (MDRD) (>60) mL/min BUN/Creatinine Ratio (14-18) Glucose (80-115) mg/dL Lactic Acid (0.4-2.0) mmol/L Calcium (8.5-10.1) mg/dL Magnesium (1.8-2.4) mg/dl Total Bilirubin (0.2-1.0) mg/dL AST (15-37) U/L ALT (16-63) U/L Alkaline Phosphatase (46-116) U/L Troponin I (0.00-0.056) ng/mL C-Reactive Protein (<1.0) mg/dL Total Protein (6.4-8.2) g/dl Albumin (3.4-5.0) g/dl Globulin gm/dL Albumin/Globulin Ratio (1-2) Urine Color Yellow (Yellow) Urine Appearance Clear (Clear) Urine pH 7.0 (5.0-8.0) Ur Specific [place] 1.025 (1.005-1.030) Urine Protein 1+ H (Negative) Urine Glucose (UA) Negative (Negative) Urine Ketones Trace H (Negative) Urine Occult Blood Negative (Negative) Urine Nitrite Negative (Negative) Urine Bilirubin 1+ H (Negative) Urine Urobilinogen 0.2 (0.2-1.0) Ur Leukocyte Esterase Negative (Negative) Urine RBC 0-5 (0-5) /hpf Urine WBC 0-5 (0-5) /hpf Ur Squamous Epith Cells 0-5 (0-5) /hpf Amorphous Sediment Moderate H (NOT SEEN) /hpf Urine Bacteria Moderate H (FEW) /hpf Urine Mucus Rare (FEW) /hpf SARS-CoV-2 RNA ([place]) Negative (NEGATIVE) 06/17/20 06/17/20 06/17/20 Range/Units 16:50 16:50 16:50 WBC (4.23-9.07) K/mm3 RBC (4.63-6.08) M/mm3 Hgb (13.7-17.5) gm/dl Hct (40.1-51.0) % MCV (79.0-92.2) fl MCH (25.7-32.2) pg MCHC (32.2-35.5) g/dl RDW Std Deviation (35.1-43.9) fL Plt Count (163-337) K/mm3 MPV (9.4-12.3) fl Neut % (Auto) (34.0-67.9) % Lymph % (Auto) (21.8-53.1) % [place] % (Auto) (5.3-12.2) % Eos % (Auto) (0.8-7.0) Baso % (Auto) (0.1-1.2) % Neut # (Auto) (1.78-5.38) K/mm3 Lymph # (Auto) (1.32-3.57) K/mm3 [place] # (Auto) (0.30-0.82) K/mm3 Eos # (Auto) (0.04-0.54) K/mm3 Baso # (Auto) (0.01-0.08) K/mm3 PT 12.0 (9.7-12.0) SECONDS INR 1.12 APTT 35.7 H (21.7-31.4) SECONDS D-Dimer, Quantitative 2.15 H (0.19-0.50) mg/L Sodium 137 (136-145) mEq/L Potassium 3.6 (3.5-5.1) mEq/L Chloride 101 (98-107) mEq/L Carbon Dioxide 31 (21-32) mEq/L Anion Gap 8.6 (5-15) BUN 20 H (7-18) mg/dL Creatinine 0.7 (0.7-1.3) mg/dL Est Cr Clr Drug Dosing 105.30 mL/min Estimated GFR (MDRD) > 60 (>60) mL/min BUN/Creatinine Ratio 28.6 H (14-18) Glucose 120 H (80-115) mg/dL Lactic Acid 0.9 (0.4-2.0) mmol/L Calcium 8.4 L (8.5-10.1) mg/dL Magnesium 1.9 (1.8-2.4) mg/dl Total Bilirubin 0.8 (0.2-1.0) mg/dL AST 14 L (15-37) U/L ALT 7 L (16-63) U/L Alkaline Phosphatase 61 (46-116) U/L Troponin I < 0.017 (0.00-0.056) ng/mL C-Reactive Protein 20.1 H* (<1.0) mg/dL Total Protein 7.1 (6.4-8.2) g/dl Albumin 3.1 L (3.4-5.0) g/dl Globulin 4.0 gm/dL Albumin/Globulin Ratio 0.8 L (1-2) Urine Color (Yellow) Urine Appearance (Clear) Urine pH (5.0-8.0) Ur Specific [place] (1.005-1.030) Urine Protein (Negative) Urine Glucose (UA) (Negative) Urine Ketones (Negative) Urine Occult Blood (Negative) Urine Nitrite (Negative) Urine Bilirubin (Negative) Urine Urobilinogen (0.2-1.0) Ur Leukocyte Esterase (Negative) Urine RBC (0-5) /hpf Urine WBC (0-5) /hpf Ur Squamous Epith Cells (0-5) /hpf Amorphous Sediment (NOT SEEN) /hpf Urine Bacteria (FEW) /hpf Urine Mucus (FEW) /hpf SARS-CoV-2 RNA ([place]) (NEGATIVE) Meds: Medications Generic Name Dose Route Start Last Admin Trade Name Noé PRN Reason Stop Dose Admin Sodium Chloride 100 mls @ 60 mls/hr 06/17/20 18:30 06/17/20 18:24 Normal Saline IV 60 mls/hr ASDIRECTED JASPER Administration Sodium Chloride 10 ml 06/17/20 16:25 06/17/20 16:54 Sodium Chloride 0.9% 10 Ml Syringe FLUSH 10 ml ASDIRECTED PRN Administration Keep Vein Open Sodium Chloride 10 ml 06/17/20 18:30 06/17/20 18:23 Sodium Chloride 0.9% 10 Ml Syringe FLUSH 10 ml ASDIRECTED JASPER Administration Discontinued Medications Generic Name Dose Route Start Last Admin Trade Name Noé PRN Reason Stop Dose Admin Ceftriaxone Sodium 2 gm/ 100 mls @ 200 mls/hr 06/17/20 16:30 06/17/20 16:54 Sodium Chloride IV 06/17/20 16:59 200 mls/hr ONETIME ONE Administration Iopamidol 100 ml 06/17/20 18:21 06/17/20 18:22 Iopamidol 755 Mg/Ml 100 Ml Bottle IVPUSH 06/17/20 18:22 100 ml ONETIME ONE Administration Valacyclovir HCl 1,000 mg 06/17/20 16:28 06/17/20 17:10 Valacyclovir 1,000 Mg Tab PO 06/17/20 16:29 1,000 mg ONETIME ONE Administration - Re-Assessments/Exams Free Text/Narrative Re-Assessment/Exam: 06/17/20 17:26 I ordered an oxygen, IV saline lock, EKG, CXR, labs, COVID 19, blood cultures and lactic acid. His EKG shows a NSR with no acute changes. His CXR shows a possible infiltrate to the left lower lung. 06/17/20 17:31 It appears he has shingles on the right side of his head. 06/17/20 17:33 His WBC is normal His D-dimer is elevated at 2.15. I have ordered a CT angio of his chest. His creatinine is normal His lactic acid is normal. His magnesium is normal. His troponin is negative. His UA shows no UTI. COVID 19 is negative. 06/17/20 19:[address] angio of his chest shows patchy ground glass and reticulonodular opacities in the left upper lobe. Dense infiltrate with air bronchograms in the left lower lobe associated with volume loss. Findings consistent with atelectasis with infiltrated lung possibly infectious. There is occlusion of the left lower lobe bronchus at its origin by a soft tissue density mass measuring at least 1.6cm. Findings worrisome for neoplasm. Small left pleural effusion. There is no aortic dissection or aneurysm. Shift of the heart and mediastinal structures to the left consistent with atelectatic changes in the left hemithorax. There is no pulmonary emboli. Mediastinal and left hilar lymphadenopathy. It appears he has pneumonia. I feel he needs to be admitted. I called Dr Aparicio and he agreed to the admission. I also called Dr Roberto and the PEG tube could have been used days ago. Departure - Departure Time of Disposition: 19:15 Disposition: Admitted As Inpatient 68 Condition: Fair Clinical Impression: Lung mass, Hypoxia, Parkinson disease, Progressive supranuclear ophthalmoplegia Pneumonia Qualifiers: Pneumonia type: due to unspecified organism Laterality: left Lung location: lower lobe of lung Qualified Code(s): J18.9 - Pneumonia, unspecified organism Shingles Qualifiers: Herpes zoster complications: unspecified herpes zoster complication Qualified Code(s): B02.8 - Zoster with other complications - Discharge Information Referrals: Nik Hughes MD [Primary Care Provider] - Forms: ED Department Discharge Sepsis Event Note (ED) - Evaluation Sepsis Screening Result: No Definite Risk - Focused Exam Vital Signs: Vital Signs Temp Pulse Resp BP Pulse Ox 06/17/20 18:25 80 16 120/68 91 L 06/17/20 17:15 80 16 111/58 L 91 L 06/17/20 16:14 98.9 F 93 20 124/67 79 L - My Orders Last 24 Hours: My Active Orders 06/17/20 16:25 Sodium Chloride 0.9% [Saline Flush] 10 ml FLUSH ASDIRECTED PRN Peripheral IV Insertion Adult [OM.PC] Stat 06/17/20 16:26 Cardiac Monitoring [RC] . DIRECTED Oxygen Therapy [RC] PRN 06/17/20 16:27 EKG Documentation Completion [RC] STAT Peripheral IV Care [RC] . DIRECTED Chest 1V Frontal [CR] Stat Blood Culture x2 Reflex Set [OM.PC] Stat 06/17/20 16:50 CULTURE BLOOD [BC] Stat 06/17/20 17:00 Insert Urinary Catheter [OM.PC] Stat 06/17/20 17:05 CULTURE BLOOD [BC] Stat 06/17/20 17:07 Urinary Catheter Assessment [RC] ASDIRECTED 06/17/20 17:29 Ang Chest [CT] Stat 06/17/20 18:30 Sodium Chloride 0.9% [Normal Saline] 100 ml IV ASDIRECTED Sodium Chloride 0.9% [Saline Flush] 10 ml FLUSH ASDIRECTED - Assessment/Plan Last 24 Hours: My Active Orders 06/17/20 16:25 Sodium Chloride 0.9% [Saline Flush] 10 ml FLUSH ASDIRECTED PRN Peripheral IV Insertion Adult [OM.PC] Stat 06/17/20 16:26 Cardiac Monitoring [RC] . DIRECTED Oxygen Therapy [RC] PRN 06/17/20 16:27 EKG Documentation Completion [RC] STAT Peripheral IV Care [RC] . DIRECTED Chest 1V Frontal [CR] Stat Blood Culture x2 Reflex Set [OM.PC] Stat 06/17/20 16:50 CULTURE BLOOD [BC] Stat 06/17/20 17:00 Insert Urinary Catheter [OM.PC] Stat 06/17/20 17:05 CULTURE BLOOD [BC] Stat 06/17/20 17:07 Urinary Catheter Assessment [RC] ASDIRECTED 06/17/20 17:29 Ang Chest [CT] Stat 06/17/20 18:30 Sodium Chloride 0.9% [Normal Saline] 100 ml IV ASDIRECTED Sodium Chloride 0.9% [Saline Flush] 10 ml FLUSH ASDIRECTED
[2020-06-17] MEDS ORDERED: Iopamidol 755 Mg/ML 100 ML Bottle IVPUSH ONE (18:21)
[2020-06-17] MEDS ORDERED: Sodium Chloride 0.9% 10 ML Syringe FLUSH SCH (18:30)
[2020-06-17] MEDS ORDERED: Sodium Chloride 0.9% 100 ML IV SCH (18:30)
[2020-06-17] MEDS ORDERED: Promethazine 12.5 MG in Sodium Chloride 0.9% 50 ML IV PRN (20:01)
[2020-06-17] MEDS ORDERED: Acetaminophen 325 MG Tab PO PRN (20:01)
[2020-06-17] MEDS ORDERED: LACTOSE REDUCED FOOD PEGTUBE PRN (20:09)
[2020-06-17] MEDS ORDERED: [UNRECOGNIZED DRUG - OTHER] PEGTUBE PRN (20:09)
[2020-06-17] MEDS ORDERED: Trolamine Salicylate/Aloe Vera 10% Crm 85 GM Tube TOP PRN (20:09)
[2020-06-17] MEDS ORDERED: HYDROmorphone 2 MG Tab PO PRN (20:09)
[2020-06-17] MEDS ORDERED: FIBER PEGTUBE PRN (20:09)
[2020-06-17] MEDS ORDERED: Piperacillin/Tazobactam 4.5 GM in Sodium Chloride 0.9% 100 ML IV ONE (20:15)
[2020-06-17] MEDS ORDERED: fentaNYL 75 MCG/HR Transdermal Patch TRDERM SCH (20:15)
[2020-06-17] MEDS ORDERED: Losartan 50 MG Tab PO SCH (20:15)
[2020-06-17] MEDS ORDERED: Pantoprazole 40 MG in Sodium Chloride 0.9% 100 ML IV ONE (20:17)
[2020-06-17] MEDS ORDERED: Sodium Chloride 0.9% 1,000 ML IV SCH ×2 (20:30→21:00)
--- NOTE | 2020-06-17 20:33 | PCM.HP.2 ---
H&P History of Present Illness - General Date of Service: 06/17/20 Admit Problem/Dx: Admission Diagnosis/Problem Admission Diagnosis/Problem Pneumonia Source of Information: Patient, Other (Chart) - History of Present Illness Initial Comments - Free Text/Narative: Pt is a 64 yom with a hx of Parkinson's disease, progressive supranuclear palsy, dysphagia, HTN, and chronic severe generalized pain who was brought to the ER from [facility] with cough, sob and oxygen desaturation x 2 days. Pt also complains of chest pain, left arm pain and PEG site abdominal pain. Otherwise he is fine. In the ER, he was found to have elevation of D-dimer. CTA chest was performed, showing no PE; patchy ground glass and reticulonodular opacities in the left upper lobe. Dense infiltrate with air bronchograms in the left lower lobe associated with volume loss; there is occlusion of the left lower lobe bronchus at its origin by a soft tissue density mass measuring at least 1.6cm; mediastinal and left hilar lymphadenopathy. Some shingles rash noted over right-sided head. But he does not know how long the rashes have been over there. He has dysphagia, for which PEG was placed on 06/[address] Roberto. Ad dom was consulted in the ER - PEG tube can be used. Middle Abdomen Pain Score (Numeric/FACES): 7 - Related Data Allergies/Adverse Reactions: Allergies Allergy/AdvReac Type Severity Reaction Status Date / Time No Known Allergies Allergy Verified 06/17/20 16:21 Home Medications: Home Meds Carbidopa/Levodopa [Carbidopa-Levodopa 25-100] 1 tab PO QID #120 tablet 10/22/19 [Rx] Gabapentin [Neurontin] 200 mg PO TID #120 dose 10/22/19 [Rx] Losartan [Cozaar] 50 mg PO DAILY #30 dose 10/22/19 [Rx] Ondansetron [Zofran ODT] 4 mg PO Q6H PRN #20 tab.dis 10/22/19 [Rx] Simvastatin 20 mg PO BEDTIME #30 dose 10/22/19 [Rx] Terazosin [Hytrin] 5 mg PO BID #60 cap 10/22/19 [Rx] Baclofen 10 mg PO QID 12/14/19 [History] LORazepam [Ativan] 1 mg PO BID 12/14/19 [History] hydroCHLOROthiazide [Hydrochlorothiazide] 12.5 mg PO DAILY 12/14/19 [History] Celecoxib 200 mg PO DAILY 02/11/20 [History] Cyclobenzaprine [Flexeril] 10 mg PO TID 02/11/20 [History] LORazepam [Ativan] 1 mg PO BID 02/11/20 [History] Sertraline [Zoloft] 100 mg PO BEDTIME 02/11/20 [History] traZODone HCl [Trazodone HCl] 150 mg PO BEDTIME 02/11/20 [History] HYDROmorphone [Dilaudid] 2 mg PO Q6H PRN 02/26/20 [History] fentaNYL [Duragesic] 75 mcg TRDERM Q72H #5 patch 04/21/20 [Rx] Acetaminophen [Tylenol] 650 mg PO Q6H PRN 06/17/20 [History] Lactose-Reduced Food/Fiber [Jevity 1.2 Nixon Liquid] 237 ml PEGTUBE TID PRN 06/17/20 [History] Magnesium Oxide 400 mg PO BID 06/17/20 [History] Sennosides/Docusate Sodium [Senna Plus 8.6-50 mg Softgel] 1 tab PO DAILY 06/17/20 [History] Sennosides/Docusate Sodium [Senna Plus 8.6-50 mg Softgel] 1 tab PO TID PRN 06/17/20 [History] Trolamine Salicylate/Aloe Vera [Aspercreme 10% Cream] 1 applic TOP Q4H PRN 06/17/20 [History] busPIRone [Buspar] 30 mg PO BID 06/17/20 [History] guaiFENesin [Mucinex] 600 mg PO TID 06/17/20 [History] polyethylene glycoL 3350 [MiraLAX] 17 gm PO DAILY 06/17/20 [History] Past Medical History HEENT History: Reports: Impaired Vision Other HEENT History: Wears glasses Cardiovascular History: Reports: High Cholesterol, Hypertension Respiratory History: Reports: Intubation, Previous, Pneumonia, Recurrent, Sleep Apnea Gastrointestinal History: Reports: Chronic Constipation, GERD, Hiatal Hernia Genitourinary History: Reports: BPH, Retention, Urinary, UTI, 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 Psychiatric History: Reports: Anxiety, Depression Other Psychiatric History: insomnia Endocrine/Metabolic History: Reports: None Hematologic History: Reports: None Immunologic History: Reports: None Oncologic (Cancer) History: Reports: None Dermatologic History: Reports: None - Infectious Disease History Infectious Disease History: Reports: MRSA - Past Surgical History Male Surgical History: Reports: Suprapubic Catheter Placement - History Comment History Comment: Patient has chronic severe generalized pain. He is currently on Dilaudid 2 mg 3 times daily and fentanyl patch. 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 Social & Family History - Family History Family Medical History: No Pertinent Family History (Denies genetic disease in family) - Tobacco Use Tobacco Use Status *Q: Never Tobacco User - Caffeine Use Caffeine Use: Reports: None - Recreational Drug Use Recreational Drug Use: No - Living Situation & Occupation Living situation: Reports: Single, Alone, Extended Care Facility ([facility] Occupation: Disabled H&P Review of Systems - Review of Systems: Review Of Systems: See Below Review of Systems Comment:: Positive for cough, sob, chest pain and abdominal pain. All other system were reviewed and negative. Exam - Exam Exam: See Below - Vital Signs Vital Signs: Last Vital Signs Temp 37.2 C 06/17/20 16:14 Pulse 80 06/17/20 18:25 Resp 16 06/17/20 18:25 BP 120/68 06/17/20 18:25 Pulse Ox 91 L 06/17/20 18:25 Weight: 68.039 kg - Exam General: Alert, Oriented, Cooperative HEENT: Conjunctiva Clear, EOMI, Pupils Equal, Pupils Reactive, Other (shingles on the right side of his head), PERRLA Neck: Supple, Full Range of Motion Lungs: Normal Respiratory Effort, Decreased Breath Sounds Cardiovascular: Regular Rate, Regular Rhythm, Normal S1, Normal S2 GI/Abdominal Exam: Soft, Non-Tender, No Organomegaly, Other (PEG tube in place) Extremities: Normal Inspection, Normal Range of Motion, Non-Tender, No Pedal Edema Neurological: Strength Equal Bilateral, Sensation Intact Neuro Extensive - Mental Status: Alert, Oriented x3, Normal Mood/Affect Psychiatric: Normal Mood - Patient Data Lab Results Last 24 hrs: Laboratory Results - last 24 hr 06/17/20 06/17/20 06/17/20 Range/Units 16:25 16:28 16:50 WBC 6.22 (4.23-9.07) K/mm3 RBC 4.55 L (4.63-6.08) M/mm3 Hgb 12.8 L (13.7-17.5) gm/dl Hct 40.0 L (40.1-51.0) % MCV 87.9 (79.0-92.2) fl MCH 28.1 (25.7-32.2) pg MCHC 32.0 L (32.2-35.5) g/dl RDW Std Deviation 42.8 (35.1-43.9) fL Plt Count 127 L (163-337) K/mm3 MPV 11.0 (9.4-12.3) fl Neut % (Auto) 81.1 H (34.0-67.9) % Lymph % (Auto) 11.3 L (21.8-53.1) % [place] % (Auto) 4.8 L (5.3-12.2) % Eos % (Auto) 2.4 (0.8-7.0) Baso % (Auto) 0.2 (0.1-1.2) % Neut # (Auto) 5.05 (1.78-5.38) K/mm3 Lymph # (Auto) 0.70 L (1.32-3.57) K/mm3 [place] # (Auto) 0.30 (0.30-0.82) K/mm3 Eos # (Auto) 0.15 (0.04-0.54) K/mm3 Baso # (Auto) 0.01 (0.01-0.08) K/mm3 PT (9.7-12.0) SECONDS INR APTT (21.7-31.4) SECONDS D-Dimer, Quantitative (0.19-0.50) mg/L Sodium (136-145) mEq/L Potassium (3.5-5.1) mEq/L Chloride (98-107) mEq/L Carbon Dioxide (21-32) mEq/L Anion Gap (5-15) BUN (7-18) mg/dL Creatinine (0.7-1.3) mg/dL Est Cr Clr Drug Dosing mL/min Estimated GFR (MDRD) (>60) mL/min BUN/Creatinine Ratio (14-18) Glucose (80-115) mg/dL Lactic Acid (0.4-2.0) mmol/L Calcium (8.5-10.1) mg/dL Magnesium (1.8-2.4) mg/dl Total Bilirubin (0.2-1.0) mg/dL AST (15-37) U/L ALT (16-63) U/L Alkaline Phosphatase (46-116) U/L Troponin I (0.00-0.056) ng/mL C-Reactive Protein (<1.0) mg/dL Total Protein (6.4-8.2) g/dl Albumin (3.4-5.0) g/dl Globulin gm/dL Albumin/Globulin Ratio (1-2) Urine Color Yellow (Yellow) Urine Appearance Clear (Clear) Urine pH 7.0 (5.0-8.0) Ur Specific Hosmer 1.025 (1.005-1.030) Urine Protein 1+ H (Negative) Urine Glucose (UA) Negative (Negative) Urine Ketones Trace H (Negative) Urine Occult Blood Negative (Negative) Urine Nitrite Negative (Negative) Urine Bilirubin 1+ H (Negative) Urine Urobilinogen 0.2 (0.2-1.0) Ur Leukocyte Esterase Negative (Negative) Urine RBC 0-5 (0-5) /hpf Urine WBC 0-5 (0-5) /hpf Ur Squamous Epith Cells 0-5 (0-5) /hpf Amorphous Sediment Moderate H (NOT SEEN) /hpf Urine Bacteria Moderate H (FEW) /hpf Urine Mucus Rare (FEW) /hpf SARS-CoV-2 RNA (CAMILLA) Negative (NEGATIVE) 06/17/20 06/17/20 06/17/20 Range/Units 16:50 16:50 16:50 WBC (4.23-9.07) K/mm3 RBC (4.63-6.08) M/mm3 Hgb (13.7-17.5) gm/dl Hct (40.1-51.0) % MCV (79.0-92.2) fl MCH (25.7-32.2) pg MCHC (32.2-35.5) g/dl RDW Std Deviation (35.1-43.9) fL Plt Count (163-337) K/mm3 MPV (9.4-12.3) fl Neut % (Auto) (34.0-67.9) % Lymph % (Auto) (21.8-53.1) % [place] % (Auto) (5.3-12.2) % Eos % (Auto) (0.8-7.0) Baso % (Auto) (0.1-1.2) % Neut # (Auto) (1.78-5.38) K/mm3 Lymph # (Auto) (1.32-3.57) K/mm3 [place] # (Auto) (0.30-0.82) K/mm3 Eos # (Auto) (0.04-0.54) K/mm3 Baso # (Auto) (0.01-0.08) K/mm3 PT 12.0 (9.7-12.0) SECONDS INR 1.12 APTT 35.7 H (21.7-31.4) SECONDS D-Dimer, Quantitative 2.15 H (0.19-0.50) mg/L Sodium 137 (136-145) mEq/L Potassium 3.6 (3.5-5.1) mEq/L Chloride 101 (98-107) mEq/L Carbon Dioxide 31 (21-32) mEq/L Anion Gap 8.6 (5-15) BUN 20 H (7-18) mg/dL Creatinine 0.7 (0.7-1.3) mg/dL Est Cr Clr Drug Dosing 105.30 mL/min Estimated GFR (MDRD) > 60 (>60) mL/min BUN/Creatinine Ratio 28.6 H (14-18) Glucose 120 H (80-115) mg/dL Lactic Acid 0.9 (0.4-2.0) mmol/L Calcium 8.4 L (8.5-10.1) mg/dL Magnesium 1.9 (1.8-2.4) mg/dl Total Bilirubin 0.8 (0.2-1.0) mg/dL AST 14 L (15-37) U/L ALT 7 L (16-63) U/L Alkaline Phosphatase 61 (46-116) U/L Troponin I < 0.017 (0.00-0.056) ng/mL C-Reactive Protein 20.1 H* (<1.0) mg/dL Total Protein 7.1 (6.4-8.2) g/dl Albumin 3.1 L (3.4-5.0) g/dl Globulin 4.0 gm/dL Albumin/Globulin Ratio 0.8 L (1-2) Urine Color (Yellow) Urine Appearance (Clear) Urine pH (5.0-8.0) Ur Specific Hosmer (1.005-1.030) Urine Protein (Negative) Urine Glucose (UA) (Negative) Urine Ketones (Negative) Urine Occult Blood (Negative) Urine Nitrite (Negative) Urine Bilirubin (Negative) Urine Urobilinogen (0.2-1.0) Ur Leukocyte Esterase (Negative) Urine RBC (0-5) /hpf Urine WBC (0-5) /hpf Ur Squamous Epith Cells (0-5) /hpf Amorphous Sediment (NOT SEEN) /hpf Urine Bacteria (FEW) /hpf Urine Mucus (FEW) /hpf SARS-CoV-2 RNA (CAMILLA) (NEGATIVE) Result Diagrams: 06/17/20 16:50 06/17/20 16:50 Sepsis Event Note - Evaluation Sepsis Screening Result: No Definite Risk - Focused Exam Vital Signs: Vital Signs Temp Pulse Resp BP Pulse Ox 06/17/20 18:25 80 16 120/68 91 L 06/17/20 17:15 80 16 111/58 L 91 L 06/17/20 16:14 37.2 C 93 20 124/67 79 L Problem List Initiated/Reviewed/Updated: Yes Orders Last 24hrs: Active Orders 24 hr Category Date Time Status Admission Status [Patient Status] [ADT] Routine ADT 06/17/20 20:15 Active Cardiac Monitoring [RC] . DIRECTED Care 06/17/20 16:26 Active Cardiac Monitoring [RC] CONTINUOUS Care 06/17/20 20:02 Ordered Communication Order [RC] ASDIRECTED Care 06/17/20 20:20 Ordered EKG Documentation Completion [RC] STAT Care 06/17/20 16:27 Active Insert Urinary Catheter [OM.PC] Stat Care 06/17/20 17:00 Ordered Intake and Output [RC] QSHIFT Care 06/17/20 20:02 Ordered Oxygen Therapy [RC] PRN Care 06/17/20 16:26 Active Oxygen Therapy [RC] PRN Care 06/17/20 20:01 Ordered Peripheral IV Care [RC] . DIRECTED Care 06/17/20 16:27 Active Pulse Oximetry [RC] CONTINUOUS Care 06/17/20 20:02 Ordered Up With Assistance [RC] ASDIRECTED Care 06/17/20 20:01 Ordered Urinary Catheter Assessment [RC] ASDIRECTED Care 06/17/20 17:07 Active VTE/DVT Education [RC] PER UNIT ROUTINE Care 06/17/20 20:01 Ordered Vital Signs [RC] Q4H Care 06/17/20 20:01 Ordered Consult to Automotive Service Consultant [CONS] Routine Cons 06/17/20 20:21 Ordered OT Evaluation and Treatment [CONS] Routine Cons 06/17/20 20:01 Ordered PT Evaluation and Treatment [CONS] Routine Cons 06/17/20 20:01 Ordered Nothing per Oral Now Diet [DIET] Diet 06/17/20 Breakfast Ordered Ang Chest [CT] Stat Exams 06/17/20 17:29 Taken Chest 1V Frontal [CR] Stat Exams 06/17/20 16:27 Taken Venous Doppler Lwr Ext Bi [US] Stat Exams 06/17/20 20:23 Ordered CBC WITH AUTO DIFF [HEME] DAILY Lab 06/18/20 05:00 Ordered CBC WITH AUTO DIFF [HEME] DAILY Lab 06/19/20 05:00 Ordered CBC WITH AUTO DIFF [HEME] DAILY Lab 06/20/20 05:00 Ordered CBC WITH AUTO DIFF [HEME] DAILY Lab 06/21/20 05:00 Ordered CBC WITH AUTO DIFF [HEME] DAILY Lab 06/22/20 05:00 Ordered COMPREHENSIVE METABOLIC PN,CMP [CHEM] DAILY Lab 06/18/20 05:00 Ordered COMPREHENSIVE METABOLIC PN,CMP [CHEM] DAILY Lab 06/19/20 05:00 Ordered COMPREHENSIVE METABOLIC PN,CMP [CHEM] DAILY Lab 06/20/20 05:00 Ordered COMPREHENSIVE METABOLIC PN,CMP [CHEM] DAILY Lab 06/21/20 05:00 Ordered COMPREHENSIVE METABOLIC PN,CMP [CHEM] DAILY Lab 06/22/20 05:00 Ordered CULTURE BLOOD [BC] Stat Lab 06/17/20 16:50 Received CULTURE BLOOD [BC] Stat Lab 06/17/20 17:05 Received CULTURE SPUTUM + SMEAR [RM] Stat Lab 06/17/20 20:01 Ordered MAGNESIUM [CHEM] Routine Lab 06/17/20 20:01 Ordered TROPONIN I [CHEM] Q6H Lab 06/17/20 20:01 Ordered TROPONIN I [CHEM] Q6H Lab 06/18/20 02:01 Ordered Acetaminophen [TylenoL] Med 06/17/20 20:01 Ordered 650 mg PO Q6H PRN Aspirin Med 06/17/20 21:00 Ordered 81 mg PO BEDTIME Azithromycin [Zithromax] 500 mg Med 06/17/20 20:15 Ordered Sodium Chloride 0.9% [Normal Saline (AdvBag)] 250 ml IV Q24H Baclofen [Lioresal] Med 06/17/20 21:00 Ordered 10 mg PO QID Carbidopa/Levodopa [Sinemet 25-100 mg] Med 06/17/20 21:00 Ordered 1 tab PO QID Cyclobenzaprine Med 06/17/20 21:00 Ordered 10 mg PO TID Enoxaparin [Lovenox] Med 06/17/20 20:15 Ordered 40 mg SUBCUT DAILY Gabapentin [Neurontin] Med 06/17/20 21:00 Ordered 200 mg PO TID HYDROmorphone [Dilaudid] Med 06/17/20 20:09 Ordered 2 mg PO Q6H PRN LORazepam Med 06/17/20 21:00 Ordered 1 mg PO BID Lactose-Reduced Food/Fiber [Jevity 1.2 Nixon Liquid] Med 06/17/20 20:09 Ordered 237 ml PEGTUBE TID PRN Losartan [Cozaar] Med 06/17/20 20:15 Ordered 50 mg PO DAILY Magnesium Oxide [Magnesium Oxide] Med 06/17/20 21:00 Ordered 400 mg PO BID Pantoprazole [ProTONIX IV] 40 mg Med 06/17/20 20:17 Ordered Sodium Chloride 0.9% [Normal Saline] 100 ml IV DAILY Piperacillin/Tazobactam [Piperacil-Tazobact] 4.5 gm Med 06/17/20 20:15 Active Sodium Chloride 0.9% [Normal Saline] 100 ml IV ONETIME Piperacillin/Tazobactam [Piperacil-Tazobact] 4.5 gm Med 06/17/20 20:15 Ordered Sodium Chloride 0.9% [Normal Saline] 100 ml IV Q8H Promethazine [Phenergan] 12.5 mg Med 06/17/20 20:01 Ordered Sodium Chloride 0.9% [Normal Saline] 50 ml IV Q6H Sennosides/Docusate Sodium [Senna Plus 8.6-50 mg Med 06/18/20 09:00 Ordered Softgel] 1 tab PO DAILY Sertraline [Zoloft] Med 06/17/20 21:00 Ordered 100 mg PO BEDTIME Sodium Chloride 0.9% @ 50 MLS/HR(1000ml Bag) Med 06/17/20 20:30 Ordered Sodium Chloride 0.9% [Normal Saline] 1,000 ml IV ASDIRECTED Sodium Chloride 0.9% [Saline Flush] Med 06/17/20 18:30 Active 10 ml FLUSH ASDIRECTED Terazosin [Hytrin] Med 06/17/20 21:00 Ordered 5 mg PO BID Trolamine Salicylate/Aloe Vera Med 06/17/20 20:09 Ordered 1 applic TOP Q4H PRN atorvaSTATin [Lipitor] Med 06/17/20 21:00 Ordered 40 mg PO BEDTIME busPIRone [Buspar] Med 06/17/20 21:00 Ordered 30 mg PO BID fentaNYL [Duragesic] Med 06/17/20 20:15 Ordered 75 mcg TRDERM Q72H guaiFENesin [Mucinex] Med 06/17/20 21:00 Ordered 600 mg PO TID hydroCHLOROthiazide [Hydrochlorothiazide] Med 06/18/20 09:00 Ordered 12.5 mg PO DAILY polyethylene glycoL 3350 [MiraLAX] Med 06/17/20 20:15 Ordered 17 gm PO DAILY traZODone HCl [Trazodone HCl] Med 06/17/20 21:00 Ordered 150 mg PO BEDTIME valACYclovir [Valtrex] Med 06/17/20 21:00 Ordered 1,000 mg PO TID Blood Culture x2 Reflex Set [OM.PC] Stat Oth 06/17/20 16:27 Ordered PEG Tube Management [Percutaneous Endoscopic Gastostomy Oth 06/17/20 20:20 Ordered Tube] [OM.PC] Routine Peripheral IV Insertion Adult [OM.PC] Stat Oth 06/17/20 16:25 Ordered Medication Orders Acetaminophen (Acetaminophen 325 Mg Tab) 650 mg PO Q6H PRN PRN Reason: Pain (Mild 1-3)/fever Aspirin (Aspirin 81 Mg Tab.Ec) 81 mg PO BEDTIME [facility] Atorvastatin Calcium (Atorvastatin 40 Mg Tab) 40 mg PO BEDTIME [facility] Baclofen (Baclofen 10 Mg Tab) 10 mg PO QID [facility] Buspirone HCl (Buspirone 15 Mg Tab) 30 mg PO BID [facility] Carbidopa/Levodopa (Carbidopa/Levodopa 25-100 Mg Tab) 1 tab PO QID [facility] Enoxaparin Sodium (Enoxaparin 40 Mg/0.4 Ml Syringe) 40 mg SUBCUT BEDTIME [facility] Fentanyl (Fentanyl 75 Mcg/Hr Transdermal Patch) 75 mcg TRDERM Q72H [facility] Gabapentin (Gabapentin 100 Mg Cap) 200 mg PO TID [facility] Guaifenesin (Guaifenesin 600 Mg Tab.Er) 600 mg PO TID [facility] Hydromorphone HCl (Hydromorphone 2 Mg Tab) 2 mg PO Q6H PRN PRN Reason: Pain Promethazine HCl 12.5 mg/ (Sodium Chloride) 50.5 mls @ 100 mls/hr IV Q6H PRN PRN Reason: Nausea/Vomiting Piperacillin Sod/Tazobactam (Sod 4.5 gm/ Sodium Chloride) 100 mls @ 25 mls/hr IV Q8H [facility] Azithromycin 500 mg/ Sodium (Chloride) 250 mls @ 250 mls/hr IV Q24H JASPER Piperacillin Sod/Tazobactam (Sod 4.5 gm/ Sodium Chloride) 100 mls @ 200 mls/hr IV ONETIME ONE Stop: 06/17/20 20:44 Pantoprazole Sodium 40 mg/ (Sodium Chloride) 100 mls @ 200 mls/hr IV DAILY ONE Stop: 06/17/20 20:46 Sodium Chloride (Normal Saline) 1,000 mls @ 50 mls/hr IV ASDIRECTED JASPER Losartan Potassium (Losartan 50 Mg Tab) 50 mg PO DAILY [facility] Non-Formulary Medication (Cyclobenzaprine) 10 mg PO TID [facility] Non-Formulary Medication (Hydrochlorothiazide [Hydrochlorothiazide]) 12.5 mg PO DAILY [facility] Non-Formulary Medication (Lactose-Reduced Food/Fiber [Jevity 1.2 Nixon Liquid]) 237 ml PEGTUBE TID PRN PRN Reason: Other Non-Formulary Medication (Lorazepam) 1 mg PO BID [facility] Non-Formulary Medication (Magnesium Oxide [Magnesium Oxide]) 400 mg PO BID [facility] Non-Formulary Medication (Sennosides/Docusate Sodium [Senna Plus 8.6-50 Mg Softgel]) 1 tab PO DAILY JASPER Non-Formulary Medication (Trazodone Hcl [Trazodone Hcl]) 150 mg PO BEDTIME JASPER Non-Formulary Medication (Trolamine Salicylate/Aloe Vera) 1 applic TOP Q4H PRN PRN Reason: Pain Polyethylene Glycol (Polyethylene Glycol 3350 Powder 17 Gm Packet) 17 gm PO DAILY JASPER Sertraline HCl (Sertraline 50 Mg Tab) 100 mg PO BEDTIME [facility] Sodium Chloride (Sodium Chloride 0.9% 10 Ml Syringe) 10 ml FLUSH ASDIRECTED [facility] Last Admin: 06/17/20 18:23 Dose: 10 ml Documented by: [email or web address] Terazosin HCl (Terazosin 5 Mg Cap) 5 mg PO BID JASPER Valacyclovir HCl (Valacyclovir 1,000 Mg Tab) 1,000 mg PO TID [facility] Assessment/Plan Comment:: Pt is a 64 yom with a hx of Parkinson's disease, progressive supranuclear palsy, dysphagia, HTN, and chronic severe generalized pain who was brought to the ER from [facility] with cough, sob and oxygen desaturation x 2 days. Assessment: Acute hypoxic respiratory failure Pneumonia, obstuctive, aspiration or CAP Parkinson's disease Progressive supranuclear palsy HTN Dysphagia, s/p PEG placement on 06/[address] Pardeep Frost Elevation of D-dimer Pulmonary neoplasm Chronic severe generalized pain Thrombocytopenia Chest pain Plan: 1. Pt will be admitted to hospital as an inpatient in telemetry 2. Etiologies for respiratory failure could be due to PNA and hypoventilation. Pulse oxi and oxygen therapy to keep spo2 > 92%. Monitor for CO2 retention 3. CXR shows a possible infiltrate to the left lower lung CT angio of his chest shows patchy ground glass and reticulonodular opacities in the left upper lobe. Dense infiltrate with air bronchograms in the left lower lobe associated with volume loss Blood culture Sputum culture MRSA screen Zosyn and azithromycin Inhalers 4. Continue home cabodopa and levadopa 5. PEG tube was placed on 06/[address] Roberto. confirmed by Dr. Roberto that the ER - PEG tube can be used. PEG tube feeding. Pharmacy and bobtailer consult. NS 50ml/hr. He just received contrast in the ER for CTA chest. 6. Continue HCTZ and losartan. Hydralazine prn for HTN 7. Possible shingles, duration unknown. Valacylovir 1000mg tid. Repeat renal fu nction in am 8. Regarding elevation D-dimer, CTA chest negative for PE. Doppler to r/o DVT was ordered 9. CTA chest showed there is occlusion of the left lower lobe bronchus at its origin by a soft tissue density mass measuring at least 1.6cm. Mediastinal and left hilar lymphadenopathy. f/u with pcp and oncology/pulmonology 10. for his chronic severe generalized pain, continue home dilaudid 2 mg 3 times daily and fentanyl patch. continue gabapentin 200mg tid and flexeril. He is also on trazodone 8150mg at bedtime. 11. No evidence of bleeding. Repeat platelets in am 12. EKG now ST elevation. Troponin negative in the ER. Trending troponin. Aspirin and lipitor 13. DVT prophylaxis: Lovenox Deposition: PT OT - Mortality Measure Prognosis:: Poor
[2020-06-17] MEDS ORDERED: Aspirin 81 MG Tab.EC PO SCH (21:00)
[2020-06-17] MEDS ORDERED: Terazosin 5 MG Cap PO SCH (21:00)
[2020-06-17] MEDS ORDERED: Magnesium Oxide 400 MG Tab PO SCH (21:00)
[2020-06-17] MEDS ORDERED: atorvaSTATin 40 MG Tab PO SCH (21:00)
[2020-06-17] MEDS ORDERED: busPIRone 15 MG Tab PO SCH (21:00)
[2020-06-17] MEDS ORDERED: valACYclovir 1,000 MG Tab PO SCH (21:00)
[2020-06-17] MEDS ORDERED: Carbidopa/Levodopa 25-100 MG Tab PO SCH (21:00)
[2020-06-17] MEDS ORDERED: traZODone 50 MG Tab PO SCH (21:00)
[2020-06-17] MEDS ORDERED: LORazepam 1 MG Tab PO SCH (21:00)
[2020-06-17] MEDS ORDERED: Sertraline 50 MG Tab PO SCH (21:00)
[2020-06-17] MEDS ORDERED: Baclofen 10 MG Tab PO SCH (21:00)
[2020-06-17] MEDS ORDERED: Cyclobenzaprine 10 MG Tab PO SCH (21:00)
[2020-06-17] MEDS ORDERED: Gabapentin 100 MG Cap PO SCH (21:00)
[2020-06-17] MEDS: Azithromycin 500 MG in Sodium Chloride 0.9% 250 ML IV SCH (22:11)
[2020-06-17] MEDS: Polyethylene Glycol 3350 Powder 17 GM Packet PO SCH ×2 (22:12→23:13)
[2020-06-17] MEDS: Enoxaparin 40 MG/0.4 ML Syringe SUBCUT SCH (22:16)
[2020-06-17] MEDS: guaiFENesin 600 MG Tab.ER PO SCH (22:19)
[2020-06-17] MEDS: Pantoprazole 40 MG Vial IV SCH (23:12)
[2020-06-18] MEDS ORDERED: Sodium Chloride 0.9% 500 ML IV ONE
[2020-06-18] MEDS ORDERED: LORazepam 1 MG Tab FTUBE SCH ×2 (00:03→12:00)
[2020-06-18] MEDS ORDERED: Norepinephrine 4 MG in Dextrose 5% in Water 246 ML IV SCH ×2 (00:45)
[2020-06-18] MEDS: Sodium Chloride 0.9% 1,000 ML IV SCH ×2 (01:21→18:15)
[2020-06-18] MEDS: Piperacillin/Tazobactam 4.5 GM in Sodium Chloride 0.9% 100 ML IV SCH ×3 (03:18→20:28)
[2020-06-18] MEDS: Hydrochlorothiazide 25 MG Tab FTUBE SCH (08:05)
[2020-06-18] MEDS: Cyclobenzaprine 10 MG Tab PEGTUBE SCH ×3 (08:06→20:47)
[2020-06-18] MEDS: Baclofen 10 MG Tab PEGTUBE SCH ×4 (08:06→20:48)
[2020-06-18] MEDS: Magnesium Oxide 400 MG Tab FTUBE SCH ×2 (08:07→20:49)
[2020-06-18] MEDS: Carbidopa/Levodopa 25-100 MG Tab PEGTUBE SCH ×4 (08:07→20:46)
[2020-06-18] MEDS: Gabapentin 100 MG Cap PEGTUBE SCH ×3 (08:07→20:47)
[2020-06-18] MEDS: Polyethylene Glycol 3350 Powder 17 GM Packet PEGTUBE SCH (08:08)
[2020-06-18] MEDS: busPIRone 15 MG Tab PEGTUBE SCH ×2 (08:08→20:46)
[2020-06-18] MEDS: Pantoprazole 40 MG Vial IV SCH (08:08)
[2020-06-18] MEDS: Terazosin 5 MG Cap PEGTUBE SCH ×2 (08:14→20:45)
[2020-06-18] MEDS: Losartan 50 MG Tab FTUBE SCH (08:14)
--- NOTE | 2020-06-18 08:37 | PCM.PN ---
- General Info Date of Service: 06/18/20 Subjective Update: Overnight patient became hypotensive with systolic blood pressures in the 70s, he was transferred to the intensive care unit where he is currently on Levophed 3mcg/min. 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 Patient does report worsening vision in his right eye. - Review of Systems HEENT: Reports: Eye Pain, Visual Changes Pulmonary: Reports: No Symptoms Cardiovascular: Reports: No Symptoms Gastrointestinal: Reports: No Symptoms Genitourinary: Reports: No Symptoms Skin: Reports: No Symptoms Neurological: Reports: Other (R facial pain consistent with neuritis/herpetic neuralgia ) - Patient Data Vitals - Most Recent: Last Vital Signs Temp 98.2 F 06/18/20 05:40 Pulse 58 L 06/18/20 06:46 Resp 12 06/18/20 06:46 BP 106/54 L 06/18/20 06:46 Pulse Ox 96 06/18/20 06:46 Weight - Most Recent: 148 lb 8 oz I&O - Last 24 Hours: Intake & Output 06/17/20 06/18/20 06/18/20 22:59 06:59 14:59 Intake Total 1975 Output Total 1600 Balance 375 Lab Results Last 24 Hours: Laboratory Results - last 24 hr 06/17/20 06/17/20 06/17/20 Range/Units 16:25 16:28 16:50 WBC 6.22 (4.23-9.07) K/mm3 RBC 4.55 L (4.63-6.08) M/mm3 Hgb 12.8 L (13.7-17.5) gm/dl Hct 40.0 L (40.1-51.0) % MCV 87.9 (79.0-92.2) fl MCH 28.1 (25.7-32.2) pg MCHC 32.0 L (32.2-35.5) g/dl RDW Std Deviation 42.8 (35.1-43.9) fL Plt Count 127 L (163-337) K/mm3 MPV 11.0 (9.4-12.3) fl Neut % (Auto) 81.1 H (34.0-67.9) % Lymph % (Auto) 11.3 L (21.8-53.1) % [place] % (Auto) 4.8 L (5.3-12.2) % Eos % (Auto) 2.4 (0.8-7.0) Baso % (Auto) 0.2 (0.1-1.2) % Neut # (Auto) 5.05 (1.78-5.38) K/mm3 Lymph # (Auto) 0.70 L (1.32-3.57) K/mm3 [place] # (Auto) 0.30 (0.30-0.82) K/mm3 Eos # (Auto) 0.15 (0.04-0.54) K/mm3 Baso # (Auto) 0.01 (0.01-0.08) K/mm3 PT (9.7-12.0) SECONDS INR APTT (21.7-31.4) SECONDS D-Dimer, Quantitative (0.19-0.50) mg/L Sodium (136-145) mEq/L Potassium (3.5-5.1) mEq/L Chloride (98-107) mEq/L Carbon Dioxide (21-32) mEq/L Anion Gap (5-15) BUN (7-18) mg/dL Creatinine (0.7-1.3) mg/dL Est Cr Clr Drug Dosing mL/min Estimated GFR (MDRD) (>60) mL/min BUN/Creatinine Ratio (14-18) Glucose (80-115) mg/dL Lactic Acid (0.4-2.0) mmol/L Calcium (8.5-10.1) mg/dL Magnesium (1.8-2.4) mg/dl Total Bilirubin (0.2-1.0) mg/dL AST (15-37) U/L ALT (16-63) U/L Alkaline Phosphatase (46-116) U/L Troponin I (0.00-0.056) ng/mL C-Reactive Protein (<1.0) mg/dL NT-Pro-B Natriuret Pep (0-125) pg/mL Total Protein (6.4-8.2) g/dl Albumin (3.4-5.0) g/dl Globulin gm/dL Albumin/Globulin Ratio (1-2) Urine Color Yellow (Yellow) Urine Appearance Clear (Clear) Urine pH 7.0 (5.0-8.0) Ur Specific [place] 1.025 (1.005-1.030) Urine Protein 1+ H (Negative) Urine Glucose (UA) Negative (Negative) Urine Ketones Trace H (Negative) Urine Occult Blood Negative (Negative) Urine Nitrite Negative (Negative) Urine Bilirubin 1+ H (Negative) Urine Urobilinogen 0.2 (0.2-1.0) Ur Leukocyte Esterase Negative (Negative) Urine RBC 0-5 (0-5) /hpf Urine WBC 0-5 (0-5) /hpf Ur Squamous Epith Cells 0-5 (0-5) /hpf Amorphous Sediment Moderate H (NOT SEEN) /hpf Urine Bacteria Moderate H (FEW) /hpf Urine Mucus Rare (FEW) /hpf SARS-CoV-2 RNA ([facility]) Negative (NEGATIVE) 06/17/20 06/17/20 06/17/20 Range/Units 16:50 16:50 16:50 WBC (4.23-9.07) K/mm3 RBC (4.63-6.08) M/mm3 Hgb (13.7-17.5) gm/dl Hct (40.1-51.0) % MCV (79.0-92.2) fl MCH (25.7-32.2) pg MCHC (32.2-35.5) g/dl RDW Std Deviation (35.1-43.9) fL Plt Count (163-337) K/mm3 MPV (9.4-12.3) fl Neut % (Auto) (34.0-67.9) % Lymph % (Auto) (21.8-53.1) % [place] % (Auto) (5.3-12.2) % Eos % (Auto) (0.8-7.0) Baso % (Auto) (0.1-1.2) % Neut # (Auto) (1.78-5.38) K/mm3 Lymph # (Auto) (1.32-3.57) K/mm3 [place] # (Auto) (0.30-0.82) K/mm3 Eos # (Auto) (0.04-0.54) K/mm3 Baso # (Auto) (0.01-0.08) K/mm3 PT 12.0 (9.7-12.0) SECONDS INR 1.12 APTT 35.7 H (21.7-31.4) SECONDS D-Dimer, Quantitative 2.15 H (0.19-0.50) mg/L Sodium 137 (136-145) mEq/L Potassium 3.6 (3.5-5.1) mEq/L Chloride 101 (98-107) mEq/L Carbon Dioxide 31 (21-32) mEq/L Anion Gap 8.6 (5-15) BUN 20 H (7-18) mg/dL Creatinine 0.7 (0.7-1.3) mg/dL Est Cr Clr Drug Dosing 105.30 mL/min Estimated GFR (MDRD) > 60 (>60) mL/min BUN/Creatinine Ratio 28.6 H (14-18) Glucose 120 H (80-115) mg/dL Lactic Acid 0.9 (0.4-2.0) mmol/L Calcium 8.4 L (8.5-10.1) mg/dL Magnesium 1.9 (1.8-2.4) mg/dl Total Bilirubin 0.8 (0.2-1.0) mg/dL AST 14 L (15-37) U/L ALT 7 L (16-63) U/L Alkaline Phosphatase 61 (46-116) U/L Troponin I < 0.017 (0.00-0.056) ng/mL C-Reactive Protein 20.1 H* (<1.0) mg/dL NT-Pro-B Natriuret Pep (0-125) pg/mL Total Protein 7.1 (6.4-8.2) g/dl Albumin 3.1 L (3.4-5.0) g/dl Globulin 4.0 gm/dL Albumin/Globulin Ratio 0.8 L (1-2) Urine Color (Yellow) Urine Appearance (Clear) Urine pH (5.0-8.0) Ur Specific [place] (1.005-1.030) Urine Protein (Negative) Urine Glucose (UA) (Negative) Urine Ketones (Negative) Urine Occult Blood (Negative) Urine Nitrite (Negative) Urine Bilirubin (Negative) Urine Urobilinogen (0.2-1.0) Ur Leukocyte Esterase (Negative) Urine RBC (0-5) /hpf Urine WBC (0-5) /hpf Ur Squamous Epith Cells (0-5) /hpf Amorphous Sediment (NOT SEEN) /hpf Urine Bacteria (FEW) /hpf Urine Mucus (FEW) /hpf SARS-CoV-2 RNA ([facility]) (NEGATIVE) 06/17/20 06/18/20 06/18/20 Range/Units 20:20 01:09 01:09 WBC (4.23-9.07) K/mm3 RBC (4.63-6.08) M/mm3 Hgb (13.7-17.5) gm/dl Hct (40.1-51.0) % MCV (79.0-92.2) fl MCH (25.7-32.2) pg MCHC (32.2-35.5) g/dl RDW Std Deviation (35.1-43.9) fL Plt Count (163-337) K/mm3 MPV (9.4-12.3) fl Neut % (Auto) (34.0-67.9) % Lymph % (Auto) (21.8-53.1) % [place] % (Auto) (5.3-12.2) % Eos % (Auto) (0.8-7.0) Baso % (Auto) (0.1-1.2) % Neut # (Auto) (1.78-5.38) K/mm3 Lymph # (Auto) (1.32-3.57) K/mm3 [place] # (Auto) (0.30-0.82) K/mm3 Eos # (Auto) (0.04-0.54) K/mm3 Baso # (Auto) (0.01-0.08) K/mm3 PT (9.7-12.0) SECONDS INR APTT (21.7-31.4) SECONDS D-Dimer, Quantitative (0.19-0.50) mg/L Sodium 140 (136-145) mEq/L Potassium 3.3 L (3.5-5.1) mEq/L Chloride 102 (98-107) mEq/L Carbon Dioxide 29 (21-32) mEq/L Anion Gap 12.3 (5-15) BUN 19 H (7-18) mg/dL Creatinine 1.0 (0.7-1.3) mg/dL Est Cr Clr Drug Dosing 72.97 mL/min Estimated GFR (MDRD) > 60 (>60) mL/min BUN/Creatinine Ratio 19.0 H (14-18) Glucose 143 H (80-115) mg/dL Lactic Acid (0.4-2.0) mmol/L Calcium 7.9 L (8.5-10.1) mg/dL Magnesium 1.8 (1.8-2.4) mg/dl Total Bilirubin 0.6 (0.2-1.0) mg/dL AST 15 (15-37) U/L ALT 7 L (16-63) U/L Alkaline Phosphatase 49 (46-116) U/L Troponin I < 0.017 < 0.017 (0.00-0.056) ng/mL C-Reactive Protein 16.8 H* (<1.0) mg/dL NT-Pro-B Natriuret Pep (0-125) pg/mL Total Protein 5.8 L (6.4-8.2) g/dl Albumin 2.4 L (3.4-5.0) g/dl Globulin 3.4 gm/dL Albumin/Globulin Ratio 0.7 L (1-2) Urine Color (Yellow) Urine Appearance (Clear) Urine pH (5.0-8.0) Ur Specific [place] (1.005-1.030) Urine Protein (Negative) Urine Glucose (UA) (Negative) Urine Ketones (Negative) Urine Occult Blood (Negative) Urine Nitrite (Negative) Urine Bilirubin (Negative) Urine Urobilinogen (0.2-1.0) Ur Leukocyte Esterase (Negative) Urine RBC (0-5) /hpf Urine WBC (0-5) /hpf Ur Squamous Epith Cells (0-5) /hpf Amorphous Sediment (NOT SEEN) /hpf Urine Bacteria (FEW) /hpf Urine Mucus (FEW) /hpf SARS-CoV-2 RNA ([place]) (NEGATIVE) 06/18/20 06/18/20 06/18/20 Range/Units 01:09 01:09 01:09 WBC 6.93 (4.23-9.07) K/mm3 RBC 3.68 L (4.63-6.08) M/mm3 Hgb 10.5 L D (13.7-17.5) gm/dl Hct 32.5 L (40.1-51.0) % MCV 88.3 (79.0-92.2) fl MCH 28.5 (25.7-32.2) pg MCHC 32.3 (32.2-35.5) g/dl RDW Std Deviation 42.0 (35.1-43.9) fL Plt Count 124 L (163-337) K/mm3 MPV 11.1 (9.4-12.3) fl Neut % (Auto) 79.9 H (34.0-67.9) % Lymph % (Auto) 11.8 L (21.8-53.1) % [place] % (Auto) 7.4 (5.3-12.2) % Eos % (Auto) 0.7 L (0.8-7.0) Baso % (Auto) 0.1 (0.1-1.2) % Neut # (Auto) 5.53 H (1.78-5.38) K/mm3 Lymph # (Auto) 0.82 L (1.32-3.57) K/mm3 [place] # (Auto) 0.51 (0.30-0.82) K/mm3 Eos # (Auto) 0.05 (0.04-0.54) K/mm3 Baso # (Auto) 0.01 (0.01-0.08) K/mm3 PT (9.7-12.0) SECONDS INR APTT (21.7-31.4) SECONDS D-Dimer, Quantitative (0.19-0.50) mg/L Sodium (136-145) mEq/L Potassium (3.5-5.1) mEq/L Chloride (98-107) mEq/L Carbon Dioxide (21-32) mEq/L Anion Gap (5-15) BUN (7-18) mg/dL Creatinine (0.7-1.3) mg/dL Est Cr Clr Drug Dosing mL/min Estimated GFR (MDRD) (>60) mL/min BUN/Creatinine Ratio (14-18) Glucose (80-115) mg/dL Lactic Acid 1.1 (0.4-2.0) mmol/L Calcium (8.5-10.1) mg/dL Magnesium (1.8-2.4) mg/dl Total Bilirubin (0.2-1.0) mg/dL AST (15-37) U/L ALT (16-63) U/L Alkaline Phosphatase (46-116) U/L Troponin I (0.00-0.056) ng/mL C-Reactive Protein (<1.0) mg/dL NT-Pro-B Natriuret Pep 260 H (0-125) pg/mL Total Protein (6.4-8.2) g/dl Albumin (3.4-5.0) g/dl Globulin gm/dL Albumin/Globulin Ratio (1-2) Urine Color (Yellow) Urine Appearance (Clear) Urine pH (5.0-8.0) Ur Specific [place] (1.005-1.030) Urine Protein (Negative) Urine Glucose (UA) (Negative) Urine Ketones (Negative) Urine Occult Blood (Negative) Urine Nitrite (Negative) Urine Bilirubin (Negative) Urine Urobilinogen (0.2-1.0) Ur Leukocyte Esterase (Negative) Urine RBC (0-5) /hpf Urine WBC (0-5) /hpf Ur Squamous Epith Cells (0-5) /hpf Amorphous Sediment (NOT SEEN) /hpf Urine Bacteria (FEW) /hpf Urine Mucus (FEW) /hpf SARS-CoV-2 RNA ([facility]) (NEGATIVE) Med Orders - Current: Current Medications Acetaminophen (Acetaminophen Soln 650 Mg/20.3 Ml Ud Cup) 650 mg PEGTUBE Q6H PRN PRN Reason: Pain (Mild 1-3)/fever Aspirin (Aspirin 81 Mg Tab.Chew) 81 mg [facility] B[facility] Atorvastatin Calcium (Atorvastatin 40 Mg Tab) 40 mg [facility]BE [facility]TIME [facility] Baclofen (Baclofen 10 Mg Tab) 10 mg [facility] QID [facility] Last Admin: 06/18/20 08:06 Dose: 10 mg Documented by: Buspirone HCl (Buspirone 15 Mg Tab) 30 mg [facility]BE BID [facility] Last Admin: 06/18/20 08:08 Dose: 30 mg Documented by: Carbidopa/Levodopa (Carbidopa/Levodopa 25-100 Mg Tab) 1 tab [facility] QID [facility] Last Admin: 06/18/20 08:07 Dose: 1 tab Documented by: Cyclobenzaprine HCl (Cyclobenzaprine 10 Mg Tab) 10 mg PEGTUBE TID [facility] Last Admin: 06/18/20 08:06 Dose: 10 mg Documented by: Enoxaparin Sodium (Enoxaparin 40 Mg/0.4 Ml Syringe) 40 mg SUBCUT BEDTIME [facility] Last Admin: 06/17/20 22:16 Dose: 40 mg Documented by: Fentanyl (Fentanyl 75 Mcg/Hr Transdermal Patch) 75 mcg TRDERM Q72H [facility] Gabapentin (Gabapentin 100 Mg Cap) 200 mg PEGTUBE TID [facility] Last Admin: 06/18/20 08:07 Dose: 200 mg Documented by: Guaifenesin (Guaifenesin 600 Mg Tab.Er) 600 mg PO TID [facility] Last Admin: 06/17/20 22:19 Dose: 600 mg Documented by: Hydrochlorothiazide (Hydrochlorothiazide 25 Mg Tab) 12.5 mg FTUBE DAILY [facility] Last Admin: 06/18/20 08:05 Dose: 12.5 mg Documented by: Hydromorphone HCl (Hydromorphone 2 Mg Tab) 2 mg FTUBE Q6H PRN PRN Reason: Pain Promethazine HCl 12.5 mg/ (Sodium Chloride) 50.5 mls @ 100 mls/hr IV Q6H PRN PRN Reason: Nausea/Vomiting Piperacillin Sod/Tazobactam (Sod 4.5 gm/ Sodium Chloride) 100 mls @ 25 mls/hr IV Q8H [facility] Last Admin: 06/18/20 03:18 Dose: 25 mls/hr Documented by: Azithromycin 500 mg/ Sodium (Chloride) 250 mls @ 250 mls/hr IV Q24H [facility] Last Admin: 06/17/20 22:11 Dose: 250 mls/hr Documented by: Norepinephrine Bitartrate 4 mg (/ Dextrose/Water) 250 mls @ 7.5 mls/hr IV TITRATE [facility]; Protocol Last Titration: 06/18/20 07:45 Dose: 5 mcg/min, 18.75 mls/hr Documented by: Sodium Chloride (Normal Saline) 1,000 mls @ 60 mls/hr IV ASDIRECTED [facility] Last Admin: 06/18/20 01:21 Dose: 60 mls/hr Documented by: Lorazepam (Lorazepam 1 Mg Tab) 0.5 mg FTUBE BID@1200,1600 [facility] Losartan Potassium (Losartan 50 Mg Tab) 50 mg FTUBE DAILY [facility] Last Admin: 06/18/20 08:14 Dose: Not Given Documented by: Magnesium Oxide (Magnesium Oxide 400 Mg Tab) 400 mg [facility]UBE BID [facility] Last Admin: 06/18/20 08:07 Dose: 400 mg Documented by: Miscellaneous Information (Remove Fentanyl 75 Mcg Patch) 1 ea TRDERM Q72H [facility] Pantoprazole Sodium (Pantoprazole 40 Mg Vial) 40 mg IV DAILY [facility] Last Admin: 06/18/20 08:08 Dose: 40 mg Documented by: Polyethylene Glycol (Polyethylene Glycol 3350 Powder 17 Gm Packet) 17 gm PEGTUBE DAILY [facility] Last Admin: 06/18/20 08:08 Dose: 17 gm Documented by: Senna/Docusate Sodium (Docusate Sodium/Sennosides 50-8.6 Mg Tab) 1 tab FTUBE DAILY [facility] Last Admin: 06/18/20 08:07 Dose: 1 tab Documented by: Sertraline HCl (Sertraline 50 Mg Tab) 100 mg [facility]UBE BEDTIME [facility] Sodium Chloride (Sodium Chloride 0.9% 10 Ml Syringe) 10 ml FLUSH ASDIRECTED [facility] Last Admin: 06/17/20 18:23 Dose: 10 ml Documented by: Terazosin HCl (Terazosin 5 Mg Cap) 5 mg PEGTUBE BID [facility] Last Admin: 06/18/20 08:14 Dose: Not Given Documented by: Trazodone HCl (Trazodone 50 Mg Tab) 150 mg [facility]BE BEDTIME [facility] Trolamine Salicylate (Trolamine Salicylate/Aloe Vera 10% Crm 85 Gm Tube) 0 gm TOP Q4H PRN PRN Reason: Pain Valacyclovir HCl (Valacyclovir 1,000 Mg Tab) 1,000 mg .XX TID [facility] Last Admin: 06/18/20 08:07 Dose: 1,000 mg Documented by: Discontinued Medications Acetaminophen (Acetaminophen 325 Mg Tab) 650 mg PO Q6H PRN PRN Reason: Pain (Mild 1-3)/fever Last Admin: 06/17/20 22:18 Dose: 650 mg Documented by: Aspirin (Aspirin 81 Mg Tab.Ec) 81 mg PO BEDTIME [facility] Last Admin: 06/17/20 22:19 Dose: 81 mg Documented by: Atorvastatin Calcium (Atorvastatin 40 Mg Tab) 40 mg PO BEDTIME [facility] Last Admin: 06/17/20 22:18 Dose: 40 mg Documented by: Baclofen (Baclofen 10 Mg Tab) 10 mg PO QID [facility] Last Admin: 06/17/20 22:19 Dose: 10 mg Documented by: Buspirone HCl (Buspirone 15 Mg Tab) 30 mg PO BID [facility] Last Admin: 06/17/20 22:19 Dose: 30 mg Documented by: Carbidopa/Levodopa (Carbidopa/Levodopa 25-100 Mg Tab) 1 tab PO QID [facility] Last Admin: 06/17/20 22:19 Dose: 1 tab Documented by: Cyclobenzaprine HCl (Cyclobenzaprine 10 Mg Tab) 10 mg PO TID [facility] Last Admin: 06/17/20 22:17 Dose: 10 mg Documented by: Fentanyl (Fentanyl 75 Mcg/Hr Transdermal Patch) 75 mcg TRDERM Q72H [facility] Last Admin: 06/18/20 06:55 Dose: Not Given Documented by: Fentanyl (Fentanyl 75 Mcg/Hr Transdermal Patch) 75 mcg TRDERM Q72H [facility] Gabapentin (Gabapentin 100 Mg Cap) 200 mg PO TID [facility] Last Admin: 06/17/20 22:16 Dose: 200 mg Documented by: Hydrochlorothiazide (Hydrochlorothiazide 12.5 Mg Cap) 12.5 mg PO DAILY [facility] Hydromorphone HCl (Hydromorphone 2 Mg Tab) 2 mg PO Q6H PRN PRN Reason: Pain Ceftriaxone Sodium 2 gm/ (Sodium Chloride) 100 mls @ 200 mls/hr IV ONETIME ONE Stop: 06/17/20 16:59 Last Admin: 06/17/20 16:54 Dose: 200 mls/hr Documented by: Sodium Chloride (Normal Saline) 100 mls @ 60 mls/hr IV ASDIRECTED [facility] Last Admin: 06/17/20 18:24 Dose: 60 mls/hr Documented by: Piperacillin Sod/Tazobactam (Sod 4.5 gm/ Sodium Chloride) 100 mls @ 200 mls/hr IV ONETIME ONE Stop: 06/17/20 20:44 Last Admin: 06/17/20 22:10 Dose: 200 mls/hr Documented by: Sodium Chloride (Normal Saline) 1,000 mls @ 50 mls/hr IV ASDIRECTED [facility] Sodium Chloride (Normal Saline) 1,000 mls @ 65 mls/hr IV ASDIRECTED [facility] Last Admin: 06/17/20 22:05 Dose: 65 mls/hr Documented by: Sodium Chloride (Normal Saline) 500 mls @ 999 mls/hr IV ONETIME ONE Stop: 06/18/20 00:30 Last Admin: 06/18/20 02:21 Dose: Not Given Documented by: Iopamidol (Iopamidol 755 Mg/Ml 100 Ml Bottle) 100 ml IVPUSH ONETIME ONE Stop: 06/17/20 18:22 Last Admin: 06/17/20 18:22 Dose: 100 ml Documented by: Lorazepam (Lorazepam 1 Mg Tab) 1 mg PO BID@1200,1600 [facility] Last Admin: 06/17/20 22:35 Dose: Not Given Documented by: Lorazepam (Lorazepam 1 Mg Tab) 1 mg FTUBE BID@1200,1600 [facility] Lorazepam (Lorazepam 1 Mg Tab) 1 mg FTUBE BID@1200,1600 [facility] Losartan Potassium (Losartan 50 Mg Tab) 50 mg PO DAILY [facility] Last Admin: 06/17/20 23:01 Dose: Not Given Documented by: Magnesium Oxide (Magnesium Oxide 400 Mg Tab) 400 mg PO BID [facility] Last Admin: 06/17/20 22:18 Dose: 400 mg Documented by: Miscellaneous Information (Remove Fentanyl 75 Mcg Patch) 1 ea TRDERM Q72H [facility] Non-Formulary Medication (Lactose-Reduced Food/Fiber [Jevity 1.2 Nixon Liquid]) 237 ml PEGTUBE TID PRN PRN Reason: Other Polyethylene Glycol (Polyethylene Glycol 3350 Powder 17 Gm Packet) 17 gm PO DAILY [facility] Last Admin: 06/17/20 23:13 Dose: 17 gm Documented by: Senna/Docusate Sodium (Docusate Sodium/Sennosides 50-8.6 Mg Tab) 1 tab PO DAILY [facility] Sertraline HCl (Sertraline 50 Mg Tab) 100 mg PO BEDTIME [facility] Last Admin: 06/17/20 22:18 Dose: 100 mg Documented by: Sodium Chloride (Sodium Chloride 0.9% 10 Ml Syringe) 10 ml FLUSH ASDIRECTED PRN PRN Reason: Keep Vein Open Last Admin: 06/17/20 16:54 Dose: 10 ml Documented by: Terazosin HCl (Terazosin 5 Mg Cap) 5 mg PO BID [facility] Last Admin: 06/17/20 23:12 Dose: 5 mg Documented by: Trazodone HCl (Trazodone 50 Mg Tab) 150 mg PO BEDTIME [facility] Last Admin: 06/17/20 22:18 Dose: 150 mg Documented by: Valacyclovir HCl (Valacyclovir 1,000 Mg Tab) 1,000 mg PO ONETIME ONE Stop: 06/17/20 16:29 Last Admin: 06/17/20 17:10 Dose: 1,000 mg Documented by: Valacyclovir HCl (Valacyclovir 1,000 Mg Tab) 1,000 mg PO TID [facility] Last Admin: 06/17/20 22:19 Dose: 1,000 mg Documented by: - Exam General: Alert, Oriented, Cooperative HEENT: Other (R eye with ) Neck: Supple Lungs: Normal Respiratory Effort, Rhonchi (Left Lower Lobe ). 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 No: Normal Range of Motion, Normal Capillary Refill Skin: Warm, Dry, Other (Vessicular lesions on R face, decreased ability to open right eye, mild conjunctival injection, ) Neurological: Other (See Skin,MSK, GCS 15, Alert/Oriented x 3 ) Psy/Mental Status: Alert, Normal Affect - Patient Data Lab Results Last 24 hrs: Laboratory Results - last 24 hr 06/17/20 06/17/20 06/17/20 Range/Units 16:25 16:28 16:50 WBC 6.22 (4.23-9.07) K/mm3 RBC 4.55 L (4.63-6.08) M/mm3 Hgb 12.8 L (13.7-17.5) gm/dl Hct 40.0 L (40.1-51.0) % MCV 87.9 (79.0-92.2) fl MCH 28.1 (25.7-32.2) pg MCHC 32.0 L (32.2-35.5) g/dl RDW Std Deviation 42.8 (35.1-43.9) fL Plt Count 127 L (163-337) K/mm3 MPV 11.0 (9.4-12.3) fl Neut % (Auto) 81.1 H (34.0-67.9) % Lymph % (Auto) 11.3 L (21.8-53.1) % [place] % (Auto) 4.8 L (5.3-12.2) % Eos % (Auto) 2.4 (0.8-7.0) Baso % (Auto) 0.2 (0.1-1.2) % Neut # (Auto) 5.05 (1.78-5.38) K/mm3 Lymph # (Auto) 0.70 L (1.32-3.57) K/mm3 [place] # (Auto) 0.30 (0.30-0.82) K/mm3 Eos # (Auto) 0.15 (0.04-0.54) K/mm3 Baso # (Auto) 0.01 (0.01-0.08) K/mm3 PT (9.7-12.0) SECONDS INR APTT (21.7-31.4) SECONDS D-Dimer, Quantitative (0.19-0.50) mg/L Sodium (136-145) mEq/L Potassium (3.5-5.1) mEq/L Chloride (98-107) mEq/L Carbon Dioxide (21-32) mEq/L Anion Gap (5-15) BUN (7-18) mg/dL Creatinine (0.7-1.3) mg/dL Est Cr Clr Drug Dosing mL/min Estimated GFR (MDRD) (>60) mL/min BUN/Creatinine Ratio (14-18) Glucose (80-115) mg/dL Lactic Acid (0.4-2.0) mmol/L Calcium (8.5-10.1) mg/dL Magnesium (1.8-2.4) mg/dl Total Bilirubin (0.2-1.0) mg/dL AST (15-37) U/L ALT (16-63) U/L Alkaline Phosphatase (46-116) U/L Troponin I (0.00-0.056) ng/mL C-Reactive Protein (<1.0) mg/dL NT-Pro-B Natriuret Pep (0-125) pg/mL Total Protein (6.4-8.2) g/dl Albumin (3.4-5.0) g/dl Globulin gm/dL Albumin/Globulin Ratio (1-2) Urine Color Yellow (Yellow) Urine Appearance Clear (Clear) Urine pH 7.0 (5.0-8.0) Ur Specific [place] 1.025 (1.005-1.030) Urine Protein 1+ H (Negative) Urine Glucose (UA) Negative (Negative) Urine Ketones Trace H (Negative) Urine Occult Blood Negative (Negative) Urine Nitrite Negative (Negative) Urine Bilirubin 1+ H (Negative) Urine Urobilinogen 0.2 (0.2-1.0) Ur Leukocyte Esterase Negative (Negative) Urine RBC 0-5 (0-5) /hpf Urine WBC 0-5 (0-5) /hpf Ur Squamous Epith Cells 0-5 (0-5) /hpf Amorphous Sediment Moderate H (NOT SEEN) /hpf Urine Bacteria Moderate H (FEW) /hpf Urine Mucus Rare (FEW) /hpf SARS-CoV-2 RNA ([facility]) Negative (NEGATIVE) 06/17/20 06/17/20 06/17/20 Range/Units 16:50 16:50 16:50 WBC (4.23-9.07) K/mm3 RBC (4.63-6.08) M/mm3 Hgb (13.7-17.5) gm/dl Hct (40.1-51.0) % MCV (79.0-92.2) fl MCH (25.7-32.2) pg MCHC (32.2-35.5) g/dl RDW Std Deviation (35.1-43.9) fL Plt Count (163-337) K/mm3 MPV (9.4-12.3) fl Neut % (Auto) (34.0-67.9) % Lymph % (Auto) (21.8-53.1) % [place] % (Auto) (5.3-12.2) % Eos % (Auto) (0.8-7.0) Baso % (Auto) (0.1-1.2) % Neut # (Auto) (1.78-5.38) K/mm3 Lymph # (Auto) (1.32-3.57) K/mm3 [place] # (Auto) (0.30-0.82) K/mm3 Eos # (Auto) (0.04-0.54) K/mm3 Baso # (Auto) (0.01-0.08) K/mm3 PT 12.0 (9.7-12.0) SECONDS INR 1.12 APTT 35.7 H (21.7-31.4) SECONDS D-Dimer, Quantitative 2.15 H (0.19-0.50) mg/L Sodium 137 (136-145) mEq/L Potassium 3.6 (3.5-5.1) mEq/L Chloride 101 (98-107) mEq/L Carbon Dioxide 31 (21-32) mEq/L Anion Gap 8.6 (5-15) BUN 20 H (7-18) mg/dL Creatinine 0.7 (0.7-1.3) mg/dL Est Cr Clr Drug Dosing 105.30 mL/min Estimated GFR (MDRD) > 60 (>60) mL/min BUN/Creatinine Ratio 28.6 H (14-18) Glucose 120 H (80-115) mg/dL Lactic Acid 0.9 (0.4-2.0) mmol/L Calcium 8.4 L (8.5-10.1) mg/dL Magnesium 1.9 (1.8-2.4) mg/dl Total Bilirubin 0.8 (0.2-1.0) mg/dL AST 14 L (15-37) U/L ALT 7 L (16-63) U/L Alkaline Phosphatase 61 (46-116) U/L Troponin I < 0.017 (0.00-0.056) ng/mL C-Reactive Protein 20.1 H* (<1.0) mg/dL NT-Pro-B Natriuret Pep (0-125) pg/mL Total Protein 7.1 (6.4-8.2) g/dl Albumin 3.1 L (3.4-5.0) g/dl Globulin 4.0 gm/dL Albumin/Globulin Ratio 0.8 L (1-2) Urine Color (Yellow) Urine Appearance (Clear) Urine pH (5.0-8.0) Ur Specific [place] (1.005-1.030) Urine Protein (Negative) Urine Glucose (UA) (Negative) Urine Ketones (Negative) Urine Occult Blood (Negative) Urine Nitrite (Negative) Urine Bilirubin (Negative) Urine Urobilinogen (0.2-1.0) Ur Leukocyte Esterase (Negative) Urine RBC (0-5) /hpf Urine WBC (0-5) /hpf Ur Squamous Epith Cells (0-5) /hpf Amorphous Sediment (NOT SEEN) /hpf Urine Bacteria (FEW) /hpf Urine Mucus (FEW) /hpf SARS-CoV-2 RNA ([place]) (NEGATIVE) 06/17/20 06/18/20 06/18/20 Range/Units 20:20 01:09 01:09 WBC (4.23-9.07) K/mm3 RBC (4.63-6.08) M/mm3 Hgb (13.7-17.5) gm/dl Hct (40.1-51.0) % MCV (79.0-92.2) fl MCH (25.7-32.2) pg MCHC (32.2-35.5) g/dl RDW Std Deviation (35.1-43.9) fL Plt Count (163-337) K/mm3 MPV (9.4-12.3) fl Neut % (Auto) (34.0-67.9) % Lymph % (Auto) (21.8-53.1) % [place] % (Auto) (5.3-12.2) % Eos % (Auto) (0.8-7.0) Baso % (Auto) (0.1-1.2) % Neut # (Auto) (1.78-5.38) K/mm3 Lymph # (Auto) (1.32-3.57) K/mm3 [place] # (Auto) (0.30-0.82) K/mm3 Eos # (Auto) (0.04-0.54) K/mm3 Baso # (Auto) (0.01-0.08) K/mm3 PT (9.7-12.0) SECONDS INR APTT (21.7-31.4) SECONDS D-Dimer, Quantitative (0.19-0.50) mg/L Sodium 140 (136-145) mEq/L Potassium 3.3 L (3.5-5.1) mEq/L Chloride 102 (98-107) mEq/L Carbon Dioxide 29 (21-32) mEq/L Anion Gap 12.3 (5-15) BUN 19 H (7-18) mg/dL Creatinine 1.0 (0.7-1.3) mg/dL Est Cr Clr Drug Dosing 72.97 mL/min Estimated GFR (MDRD) > 60 (>60) mL/min BUN/Creatinine Ratio 19.0 H (14-18) Glucose 143 H (80-115) mg/dL Lactic Acid (0.4-2.0) mmol/L Calcium 7.9 L (8.5-10.1) mg/dL Magnesium 1.8 (1.8-2.4) mg/dl Total Bilirubin 0.6 (0.2-1.0) mg/dL AST 15 (15-37) U/L ALT 7 L (16-63) U/L Alkaline Phosphatase 49 (46-116) U/L Troponin I < 0.017 < 0.017 (0.00-0.056) ng/mL C-Reactive Protein 16.8 H* (<1.0) mg/dL NT-Pro-B Natriuret Pep (0-125) pg/mL Total Protein 5.8 L (6.4-8.2) g/dl Albumin 2.4 L (3.4-5.0) g/dl Globulin 3.4 gm/dL Albumin/Globulin Ratio 0.7 L (1-2) Urine Color (Yellow) Urine Appearance (Clear) Urine pH (5.0-8.0) Ur Specific [place] (1.005-1.030) Urine Protein (Negative) Urine Glucose (UA) (Negative) Urine Ketones (Negative) Urine Occult Blood (Negative) Urine Nitrite (Negative) Urine Bilirubin (Negative) Urine Urobilinogen (0.2-1.0) Ur Leukocyte Esterase (Negative) Urine RBC (0-5) /hpf Urine WBC (0-5) /hpf Ur Squamous Epith Cells (0-5) /hpf Amorphous Sediment (NOT SEEN) /hpf Urine Bacteria (FEW) /hpf Urine Mucus (FEW) /hpf SARS-CoV-2 RNA ([place]) (NEGATIVE) 06/18/20 06/18/20 06/18/20 Range/Units 01:09 01:09 01:09 WBC 6.93 (4.23-9.07) K/mm3 RBC 3.68 L (4.63-6.08) M/mm3 Hgb 10.5 L D (13.7-17.5) gm/dl Hct 32.5 L (40.1-51.0) % MCV 88.3 (79.0-92.2) fl MCH 28.5 (25.7-32.2) pg MCHC 32.3 (32.2-35.5) g/dl RDW Std Deviation 42.0 (35.1-43.9) fL Plt Count 124 L (163-337) K/mm3 MPV 11.1 (9.4-12.3) fl Neut % (Auto) 79.9 H (34.0-67.9) % Lymph % (Auto) 11.8 L (21.8-53.1) % [place] % (Auto) 7.4 (5.3-12.2) % Eos % (Auto) 0.7 L (0.8-7.0) Baso % (Auto) 0.1 (0.1-1.2) % Neut # (Auto) 5.53 H (1.78-5.38) K/mm3 Lymph # (Auto) 0.82 L (1.32-3.57) K/mm3 [place] # (Auto) 0.51 (0.30-0.82) K/mm3 Eos # (Auto) 0.05 (0.04-0.54) K/mm3 Baso # (Auto) 0.01 (0.01-0.08) K/mm3 PT (9.7-12.0) SECONDS INR APTT (21.7-31.4) SECONDS D-Dimer, Quantitative (0.19-0.50) mg/L Sodium (136-145) mEq/L Potassium (3.5-5.1) mEq/L Chloride (98-107) mEq/L Carbon Dioxide (21-32) mEq/L Anion Gap (5-15) BUN (7-18) mg/dL Creatinine (0.7-1.3) mg/dL Est Cr Clr Drug Dosing mL/min Estimated GFR (MDRD) (>60) mL/min BUN/Creatinine Ratio (14-18) Glucose (80-115) mg/dL Lactic Acid 1.1 (0.4-2.0) mmol/L Calcium (8.5-10.1) mg/dL Magnesium (1.8-2.4) mg/dl Total Bilirubin (0.2-1.0) mg/dL AST (15-37) U/L ALT (16-63) U/L Alkaline Phosphatase (46-116) U/L Troponin I (0.00-0.056) ng/mL C-Reactive Protein (<1.0) mg/dL NT-Pro-B Natriuret Pep 260 H (0-125) pg/mL Total Protein (6.4-8.2) g/dl Albumin (3.4-5.0) g/dl Globulin gm/dL Albumin/Globulin Ratio (1-2) Urine Color (Yellow) Urine Appearance (Clear) Urine pH (5.0-8.0) Ur Specific [place] (1.005-1.030) Urine Protein (Negative) Urine Glucose (UA) (Negative) Urine Ketones (Negative) Urine Occult Blood (Negative) Urine Nitrite (Negative) Urine Bilirubin (Negative) Urine Urobilinogen (0.2-1.0) Ur Leukocyte Esterase (Negative) Urine RBC (0-5) /hpf Urine WBC (0-5) /hpf Ur Squamous Epith Cells (0-5) /hpf Amorphous Sediment (NOT SEEN) /hpf Urine Bacteria (FEW) /hpf Urine Mucus (FEW) /hpf SARS-CoV-2 RNA ([place]) (NEGATIVE) Result Diagrams: 06/18/20 01:09 06/18/20 01:09 Sepsis Event Note - Evaluation Sepsis Screening Result: No Definite Risk - Focused Exam Vital Signs: Vital Signs Temp Temp Pulse Pulse Resp BP BP 06/18/20 06:46 58 L 12 106/54 L 06/18/20 06:45 56 L 12 06/18/20 06:41 60 11 L 99/47 L 06/18/20 06:40 62 12 06/18/20 06:31 61 10 L 83/49 L 06/18/20 06:30 61 11 L 06/18/20 06:01 64 12 102/56 L 06/18/20 06:00 62 13 06/18/20 05:59 67 14 108/54 L 06/18/20 05:58 65 11 L 06/18/20 05:42 75 14 117/60 06/18/20 05:41 72 19 06/18/20 05:40 98.2 F 71 14 117/60 06/18/20 05:31 62 13 122/61 06/18/20 05:30 64 15 06/18/20 05:01 61 12 112/51 L 06/18/20 05:00 58 L 12 06/18/20 04:31 60 12 116/49 L 06/18/20 04:30 62 14 06/18/20 04:11 58 L 11 L 116/47 L 06/18/20 04:10 57 L 11 L 06/18/20 04:01 57 L 11 L 112/50 L 06/18/20 04:00 57 L 12 06/18/20 03:50 56 L 12 110/47 L 06/18/20 03:49 57 L 13 06/18/20 03:40 59 L 11 L 113/48 L 06/18/20 03:39 57 L 11 L 06/18/20 03:30 57 L 12 112/49 L 06/18/20 03:29 58 L 13 06/18/20 03:20 58 L 11 L 96/42 L 06/18/20 03:19 55 L 11 L 06/18/20 03:10 56 L 15 99/45 L 06/18/20 03:09 56 L 14 06/18/20 03:01 55 L 18 06/18/20 03:00 55 L 15 107/48 L 06/18/20 02:59 55 L 11 L 06/18/20 02:50 56 L 11 L 103/44 L 06/18/20 02:49 55 L 11 L 06/18/20 02:40 57 L 12 103/46 L 06/18/20 02:39 55 L 11 L 06/18/20 02:30 56 L 13 103/45 L 06/18/20 02:29 56 L 13 06/18/20 02:20 57 L 12 102/45 L 06/18/20 02:19 57 L 12 06/18/20 02:10 57 L 12 108/53 L 06/18/20 02:09 65 14 06/18/20 02:01 57 L 13 06/18/20 02:00 58 L 13 101/49 L 06/18/20 01:59 58 L 13 06/18/20 01:54 58 L 14 06/18/20 00:45 66/31 L 06/18/20 00:41 68/30 L 06/18/20 00:30 64/29 L 06/18/20 00:27 99.3 F 73 14 06/18/20 00:24 78 06/18/20 00:15 63/27 L 06/18/20 00:10 69/33 L 06/17/20 23:59 72/38 L 06/17/20 23:55 75/38 L 06/17/20 23:12 92/54 L 06/17/20 23:01 92/54 L 06/17/20 22:44 100.4 F 06/17/20 22:34 92/54 L 06/17/20 22:18 101.1 F H 06/17/20 22:02 101.1 F H 06/17/20 22:00 06/17/20 21:03 81 14 103/48 L Pulse Ox 06/18/20 06:46 96 06/18/20 06:45 94 L 06/18/20 06:41 94 L 06/18/20 06:40 96 06/18/20 06:31 95 06/18/20 06:30 95 06/18/20 06:01 91 L 06/18/20 06:00 90 L 06/18/20 05:59 90 L 06/18/20 05:58 93 L 06/18/20 05:42 95 06/18/20 05:41 93 L 06/18/20 05:40 93 L 06/18/20 05:31 96 06/18/20 05:30 94 L 06/18/20 05:01 96 06/18/20 05:00 95 06/18/20 04:31 95 06/18/20 04:30 94 L 06/18/20 04:11 95 06/18/20 04:10 95 06/18/20 04:01 97 06/18/20 04:00 96 06/18/20 03:50 97 06/18/20 03:49 96 06/18/20 03:40 96 06/18/20 03:39 96 06/18/20 03:30 96 06/18/20 03:29 95 06/18/20 03:20 96 06/18/20 03:19 95 06/18/20 03:10 96 06/18/20 03:09 96 06/18/20 03:01 95 06/18/20 03:00 95 06/18/20 02:59 94 L 06/18/20 02:50 93 L 06/18/20 02:49 92 L 06/18/20 02:40 93 L 06/18/20 02:39 92 L 06/18/20 02:30 92 L 06/18/20 02:29 90 L 06/18/20 02:20 90 L 06/18/20 02:19 90 L 06/18/20 02:10 92 L 06/18/20 02:09 91 L 06/18/20 02:01 92 L 06/18/20 02:00 93 L 06/18/20 01:59 93 L 06/18/20 01:54 93 L 06/18/20 00:45 06/18/20 00:41 06/18/20 00:30 06/18/20 00:27 91 L 06/18/20 00:24 82 L 06/18/20 00:15 06/18/20 00:10 06/17/20 23:59 06/17/20 23:55 06/17/20 23:12 06/17/20 23:01 06/17/20 22:44 06/17/20 22:34 06/17/20 22:18 06/17/20 22:02 06/17/20 22:00 92 L 06/17/20 21:03 91 L - Problem List Review Problem List Initiated/Reviewed/Updated: Yes - Assessment Assessment:: Acute Hypoxic Respiratory Failure -Most likely post obstructive pneumonia predicated on CT findings. -CTA Chest: No PE, but did show patchy groundless and reticular opacities in the left upper lobe dense infiltrate with air bronchograms in the left lower lobe associated with volume loss there is occlusion of the left lower lobe bronchus at its origin, soft tissue density mass measuring 1.6 cm with mediastinal and left hilar lymphadenopathy. Shingles -? Stallings [place] Syndrome -Right facial involvement, starting to have R eye involvement -On Valacylovir 1000mg TID Elevated D-dimer -CTA of chest negative for pulmonary embolism -Dimer 2.15 suspect secondary to possible malignancy/pulmonary mass -Venous US BLE: Pending Elevated CRP -20.1 -->16.8 -Ongoing Shingles Chronic Pain -On fentanyl patch as outpatient Parkinson's disease Progressive supra nuclear palsy - Plan Plan:: Pt is a 64 yom with a hx of Parkinson's disease, progressive supranuclear palsy, dysphagia, HTN, and chronic severe generalized pain who was brought to the ER from [facility] with cough, sob and oxygen desaturation x 2 days. Plan: Decrease levophed as tolerated to maintain MAP >65 Start Solu-medrol 60mg q12 hrs DC Valacyclovir, Start IV Acyclovir TID If worsening vision continues despite IV acyclovir and Steroids , could consider transfer for ophthalmology. Consider Midodrine per tube if needed to bridge off of levophed Blood culture Sputum culture MRSA screen Zosyn and azithromycin Inhalers Continue cabodopa and levadopa PEG tube was placed on 06/[address] Roberto. confirmed by Dr. Roberto that the ER - PEG tube can be used. PEG tube feeding. Pharmacy and bonding agent consult. NS 50ml/hr. He just received contrast in the ER for CTA chest. Continue HCTZ and losartan. Hydralazine prn for HTN Regarding elevation D-dimer, CTA chest negative for PE. Doppler to r/o DVT was ordered continue home dilaudid 2 mg 3 times daily and fentanyl patch. continue gabapentin 200mg tid and flexeril. He is also on trazodone 8150mg at bedtime. DVT prophylaxis: Lovenox Disposition: Patient in ICU currently on Levophed, PT OT Greater than 35 minutes spent total patient care including critical care time. Patient currently in the intensive care unit on Levophed.
[2020-06-18] MEDS ORDERED: REMOVE FENTANYL TRDERM SCH ×2 (09:00→20:00)
[2020-06-18] MEDS ORDERED: Hydrochlorothiazide 12.5 MG Cap PO SCH (09:00)
[2020-06-18] MEDS ORDERED: valACYclovir 1,000 MG Tab SCH (09:00)
[2020-06-18] MEDS ORDERED: fentaNYL 75 MCG/HR Transdermal Patch TRDERM SCH (09:00)
[2020-06-18] MEDS: guaiFENesin 600 MG Tab.ER PO SCH ×3 (09:30→20:44)
[2020-06-18] MEDS: HYDROmorphone 2 MG Tab FTUBE PRN ×2 (10:39→18:01)
[2020-06-18] MEDS: LORazepam 1 MG Tab FTUBE SCH ×2 (12:31→15:43)
[2020-06-18] MEDS: methylPREDNISolone Sodium Succinate 40 MG/1 ML SDV IVPUSH SCH (14:12)
[2020-06-18] MEDS ORDERED: Midodrine 5 MG Tab PO PRN (17:47)
[2020-06-18] MEDS: Azithromycin 500 MG in Sodium Chloride 0.9% 250 ML IV SCH (20:34)
[2020-06-18] MEDS: fentaNYL 75 MCG/HR Transdermal Patch TRDERM SCH (20:40)
[2020-06-18] MEDS: Aspirin 81 MG Tab.Chew PEGTUBE SCH (20:44)
[2020-06-18] MEDS: atorvaSTATin 40 MG Tab PEGTUBE SCH (20:46)
[2020-06-18] MEDS: traZODone 50 MG Tab FTUBE SCH (20:48)
[2020-06-18] MEDS: Enoxaparin 40 MG/0.4 ML Syringe SUBCUT SCH (20:48)
[2020-06-18] MEDS: Sertraline 50 MG Tab FTUBE SCH (20:48)
[2020-06-19] MEDS: HYDROmorphone 2 MG Tab FTUBE PRN ×4 (01:21→22:19)
[2020-06-19] MEDS: methylPREDNISolone Sodium Succinate 40 MG/1 ML SDV IVPUSH SCH ×2 (01:21→12:03)
[2020-06-19] MEDS: Piperacillin/Tazobactam 4.5 GM in Sodium Chloride 0.9% 100 ML IV SCH ×3 (04:28→20:47)
--- NOTE | 2020-06-19 07:07 | CR ---
Chest: Portable view of the chest was obtained. Comparison: Prior chest x-ray of 04/20/20. Increasing density within the left lung base is seen. Shifting of the mediastinum to the left chest is noted. Right lung is clear. Bony structures are osteopenic. Scattered endplate spurring is noted within the spine. Slight deformity from old healed distal right clavicle fracture is noted. Impression: 1. Increasing density within the left lung base most likely due to pneumonia if patient has infectious symptoms. 2. Shifting of the mediastinum to the left side. 3. Other findings believed to be incidental. Diagnostic code #3
[2020-06-19] MEDS: Pantoprazole 40 MG Vial IV SCH (09:00)
[2020-06-19] MEDS: Carbidopa/Levodopa 25-100 MG Tab PEGTUBE SCH ×4 (09:01→20:24)
[2020-06-19] MEDS: guaiFENesin 600 MG Tab.ER PO SCH ×3 (09:01→20:46)
[2020-06-19] MEDS: Losartan 50 MG Tab FTUBE SCH (09:01)
[2020-06-19] MEDS: Hydrochlorothiazide 25 MG Tab FTUBE SCH (09:02)
[2020-06-19] MEDS: Terazosin 5 MG Cap PEGTUBE SCH ×2 (09:04→20:20)
[2020-06-19] MEDS: Magnesium Oxide 400 MG Tab FTUBE SCH ×2 (09:04→20:24)
[2020-06-19] MEDS: busPIRone 15 MG Tab PEGTUBE SCH ×2 (09:04→20:23)
[2020-06-19] MEDS: Gabapentin 100 MG Cap PEGTUBE SCH ×3 (09:04→20:24)
[2020-06-19] MEDS: Cyclobenzaprine 10 MG Tab PEGTUBE SCH ×3 (09:04→20:23)
--- NOTE | 2020-06-19 09:04 | CT ---
CT chest Technique: Multiple axial sections through the chest were obtained. Intravenous contrast was utilized. Study was performed as a pulmonary angiogram protocol. Comparison: Prior CT chest dated 04/18/20. Findings: Small portion of the visualized upper abdominal structures show no discrete abnormality. Mild atherosclerotic change is seen within the coronary arteries. Mild atherosclerotic calcification is seen within the thoracic aorta. Small left-sided pleural effusion is noted. There are no filling defects being seen to indicate pulmonary embolism. Lung window settings were reviewed. Right lung appears to be clear. Left lung shows increased density within left upper lung with areas of consolidation within the left lower lung. Left lower bronchus is poorly seen and difficult to exclude neoplasm. This finding has worsened from previous study. Soft tissue density is noted within the left hilum and difficult to know what is lymphadenopathy versus pneumonia. Bone window settings were reviewed which show scattered degenerative change within the spine and acromioclavicular joints. There are old appearing fractures within the left ribs. One fracture appears to be nonhealed with fracture line still remaining visible. Impression: 1. No findings of pulmonary embolism. 2. Patchy areas of increased density with the left upper lung with consolidation within the left lower lung. Left lower bronchus is not seen and difficult to exclude neoplasm at this point. Findings are increased from previous study. 3. Shifting of the mediastinum into the left chest compatible with left lung process. 4. Left-sided pleural effusion. 5. Right lung remains clear. 6. Old left-sided rib fractures. One rib fracture appears to be nonhealed. Diagnostic code #5 I agree with preliminary report from [facility], finalized on 06/17/20, 7:57 PM CDT, code 1
[2020-06-19] MEDS: Polyethylene Glycol 3350 Powder 17 GM Packet PEGTUBE SCH (09:05)
[2020-06-19] MEDS: Baclofen 10 MG Tab PEGTUBE SCH ×4 (09:05→20:24)
--- NOTE | 2020-06-19 09:16 | US ---
Bilateral lower extremity deep venous ultrasound: Duplex and color Doppler evaluation were obtained of the right and left common femoral, proximal greater saphenous, superficial femoral, popliteal, posterior tibial and peroneal veins. Comparison: No previous venous imaging. Findings: Normal phasic flow, augmentation and compression is seen. There is a slightly complicated fluid filled structure superior to the ankle within the right calf which measures up to 1.7 cm. Uncertain as to etiology of this finding whether this represents previous hematoma or other abnormality. Impression: 1. No findings of deep venous thrombosis. 2. Fluid-filled structure within the calf superior to the ankle measuring 1.7 cm. Uncertain as to etiology, consider contrast-enhanced MRI if etiology is not clinically known. Diagnostic code #3 I mildly disagree with preliminary report from [facility], finalized on 06/17/20, 11:40 PM CDT, code 2
--- NOTE | 2020-06-19 10:48 | PCM.PN ---
- General Info Date of Service: 06/19/20 Functional Status: Reports: Pain Controlled - Review of Systems General: Reports: No Symptoms HEENT: Reports: Visual Changes Pulmonary: Reports: Cough, Sputum Cardiovascular: Reports: No Symptoms Gastrointestinal: Reports: No Symptoms Genitourinary: Reports: No Symptoms Musculoskeletal: Reports: No Symptoms Skin: Reports: No Symptoms Neurological: Reports: No Symptoms Psychiatric: Reports: No Symptoms - Patient Data Vitals - Most Recent: Last Vital Signs Temp 98.0 F 06/19/20 08:00 Pulse 76 06/19/20 06:00 Resp 18 06/19/20 08:00 BP 120/87 06/19/20 09:04 Pulse Ox 94 L 06/19/20 08:25 Weight - Most Recent: 152 lb I&O - Last 24 Hours: Intake & Output 06/18/20 06/19/20 06/19/20 22:59 06:59 14:59 Intake Total 1729 987 Output Total 385 485 Balance 1344 502 Lab Results Last 24 Hours: Laboratory Results - last 24 hr 06/19/20 06/19/20 Range/Units 05:03 05:03 WBC 4.81 (4.23-9.07) K/mm3 RBC 4.16 L (4.63-6.08) M/mm3 Hgb 11.7 L (13.7-17.5) gm/dl Hct 35.8 L (40.1-51.0) % MCV 86.1 (79.0-92.2) fl MCH 28.1 (25.7-32.2) pg MCHC 32.7 (32.2-35.5) g/dl RDW Std Deviation 40.3 (35.1-43.9) fL Plt Count 160 L (163-337) K/mm3 MPV 11.2 (9.4-12.3) fl Neut % (Auto) 85.7 H (34.0-67.9) % Lymph % (Auto) 13.1 L (21.8-53.1) % [place] % (Auto) 1.2 L (5.3-12.2) % Eos % (Auto) 0 L (0.8-7.0) Baso % (Auto) 0.0 L (0.1-1.2) % Neut # (Auto) 4.12 (1.78-5.38) K/mm3 Lymph # (Auto) 0.63 L (1.32-3.57) K/mm3 [place] # (Auto) 0.06 L (0.30-0.82) K/mm3 Eos # (Auto) 0.00 L (0.04-0.54) K/mm3 Baso # (Auto) 0.00 L (0.01-0.08) K/mm3 Manual Slide Review Abnormal smear Sodium 140 (136-145) mEq/L Potassium 4.2 (3.5-5.1) mEq/L Chloride 105 (98-107) mEq/L Carbon Dioxide 27 (21-32) mEq/L Anion Gap 12.2 (5-15) BUN 17 (7-18) mg/dL Creatinine 0.6 L (0.7-1.3) mg/dL Est Cr Clr Drug Dosing 124.49 mL/min Estimated GFR (MDRD) > 60 (>60) mL/min BUN/Creatinine Ratio 28.3 H (14-18) Glucose 107 (80-115) mg/dL Calcium 8.1 L (8.5-10.1) mg/dL Total Bilirubin 0.7 (0.2-1.0) mg/dL AST 13 L (15-37) U/L ALT 10 L (16-63) U/L Alkaline Phosphatase 57 (46-116) U/L Total Protein 6.2 L (6.4-8.2) g/dl Albumin 2.5 L (3.4-5.0) g/dl Globulin 3.7 gm/dL Albumin/Globulin Ratio 0.7 L (1-2) Rommel Results Last 24 Hours: Microbiology 06/17/20 16:50 Aerobic Blood Culture - Preliminary Blood - Venous - Lab Draw NO GROWTH AFTER 1 DAY Anaerobic Blood Culture - Preliminary NO GROWTH AFTER 1 DAY 06/17/20 17:05 Aerobic Blood Culture - Preliminary Blood - Venous NO GROWTH AFTER 1 DAY Anaerobic Blood Culture - Preliminary NO GROWTH AFTER 1 DAY Med Orders - Current: Current Medications Acetaminophen (Acetaminophen Soln 650 Mg/20.3 Ml Ud Cup) 650 mg PEGTUBE Q6H PRN PRN Reason: Pain (Mild 1-3)/fever Aspirin (Aspirin 81 Mg Tab.Chew) 81 mg PEGTUBE BEDTIME [facility] Last Admin: 06/18/20 20:44 Dose: 81 mg Documented by: Atorvastatin Calcium (Atorvastatin 40 Mg Tab) 40 mg PEGTUBE BEDTIME [facility] Last Admin: 06/18/20 20:46 Dose: 40 mg Documented by: Baclofen (Baclofen 10 Mg Tab) 10 mg PEGTUBE QID [facility] Last Admin: 06/19/20 09:05 Dose: 10 mg Documented by: Buspirone HCl (Buspirone 15 Mg Tab) 30 mg PEGTUBE BID [facility] Last Admin: 06/19/20 09:04 Dose: 30 mg Documented by: Carbidopa/Levodopa (Carbidopa/Levodopa 25-100 Mg Tab) 1 tab PEGTUBE QID [facility] Last Admin: 06/19/20 09:01 Dose: 1 tab Documented by: Cyclobenzaprine HCl (Cyclobenzaprine 10 Mg Tab) 10 mg PEGTUBE TID [facility] Last Admin: 06/19/20 09:04 Dose: 10 mg Documented by: Enoxaparin Sodium (Enoxaparin 40 Mg/0.4 Ml Syringe) 40 mg SUBCUT BEDTIME [facility] Last Admin: 06/18/20 20:48 Dose: 40 mg Documented by: Fentanyl (Fentanyl 75 Mcg/Hr Transdermal Patch) 75 mcg TRDERM Q72H [facility] Last Admin: 06/18/20 20:40 Dose: 75 mcg Documented by: Gabapentin (Gabapentin 100 Mg Cap) 200 mg PEGTUBE TID [facility] Last Admin: 06/19/20 09:04 Dose: 200 mg Documented by: Guaifenesin (Guaifenesin 600 Mg Tab.Er) 600 mg PO TID [facility] Last Admin: 06/19/20 09:01 Dose: 600 mg Documented by: Hydrochlorothiazide (Hydrochlorothiazide 25 Mg Tab) 12.5 mg FTUBE DAILY [facility] Last Admin: 06/19/20 09:02 Dose: 12.5 mg Documented by: Hydromorphone HCl (Hydromorphone 2 Mg Tab) 2 mg FTUBE Q6H PRN PRN Reason: Pain Last Admin: 06/19/20 01:21 Dose: 2 mg Documented by: Promethazine HCl 12.5 mg/ (Sodium Chloride) 50.5 mls @ 100 mls/hr IV Q6H PRN PRN Reason: Nausea/Vomiting Piperacillin Sod/Tazobactam (Sod 4.5 gm/ Sodium Chloride) 100 mls @ 25 mls/hr IV Q8H [facility] Last Admin: 06/19/20 04:28 Dose: 25 mls/hr Documented by: Norepinephrine Bitartrate 4 mg (/ Dextrose/Water) 250 mls @ 7.5 mls/hr IV TITRATE JASPER; Protocol Last Titration: 06/18/20 14:00 Dose: 0 mcg/min, 0 mls/hr Documented by: Sodium Chloride (Normal Saline) 1,000 mls @ 60 mls/hr IV ASDIRECTED [facility] Last Admin: 06/18/20 18:15 Dose: 60 mls/hr Documented by: Acyclovir 1,000 mg/ Sodium (Chloride) 120 mls @ 100 mls/hr IV Q8H [facility] Last Admin: 06/19/20 04:31 Dose: 100 mls/hr Documented by: Lorazepam (Lorazepam 0.5 Mg Tab) 0.5 mg FTUBE BID@1200,1600 [facility] Losartan Potassium (Losartan 50 Mg Tab) 50 mg FTUBE DAILY [facility] Last Admin: 06/19/20 09:01 Dose: 50 mg Documented by: Magnesium Oxide (Magnesium Oxide 400 Mg Tab) 400 mg FTUBE BID [facility] Last Admin: 06/19/20 09:04 Dose: 400 mg Documented by: Methylprednisolone Sodium Succinate (Methylprednisolone Sodium Succinate 40 Mg/1 Ml Sdv) 40 mg IVPUSH Q12H [facility] Last Admin: 06/19/20 01:21 Dose: 40 mg Documented by: Midodrine (Midodrine 5 Mg Tab) 5 mg PO TIDAC PRN PRN Reason: Hypotension Miscellaneous Information (Remove Fentanyl 75 Mcg Patch) 1 ea TRDERM Q72H [facility] Last Admin: 06/18/20 20:39 Dose: 1 ea Documented by: Pantoprazole Sodium (Pantoprazole 40 Mg Vial) 40 mg IV DAILY [facility] Last Admin: 06/19/20 09:00 Dose: 40 mg Documented by: Polyethylene Glycol (Polyethylene Glycol 3350 Powder 17 Gm Packet) 17 gm PEGTUBE DAILY [facility] Last Admin: 06/19/20 09:05 Dose: 17 gm Documented by: Senna/Docusate Sodium (Docusate Sodium/Sennosides 50-8.6 Mg Tab) 1 tab FTUBE DAILY [facility] Last Admin: 06/19/20 09:05 Dose: 1 tab Documented by: Sertraline HCl (Sertraline 50 Mg Tab) 100 mg FTUBE BEDTIME [facility] Last Admin: 06/18/20 20:48 Dose: 100 mg Documented by: Sodium Chloride (Sodium Chloride 0.9% 10 Ml Syringe) 10 ml FLUSH ASDIRECTED [facility] Last Admin: 06/17/20 18:23 Dose: 10 ml Documented by: Terazosin HCl (Terazosin 5 Mg Cap) 5 mg PEGTUBE BID [facility] Last Admin: 06/19/20 09:04 Dose: 5 mg Documented by: Trazodone HCl (Trazodone 50 Mg Tab) 150 mg FTUBE BEDTIME [facility] Last Admin: 06/18/20 20:48 Dose: 150 mg Documented by: Trolamine Salicylate (Trolamine Salicylate/Aloe Vera 10% Crm 85 Gm Tube) 0 gm TOP Q4H PRN PRN Reason: Pain Last Admin: 06/18/20 21:14 Dose: 1 applic Documented by: Discontinued Medications Acetaminophen (Acetaminophen 325 Mg Tab) 650 mg PO Q6H PRN PRN Reason: Pain (Mild 1-3)/fever Last Admin: 06/17/20 22:18 Dose: 650 mg Documented by: Aspirin (Aspirin 81 Mg Tab.Ec) 81 mg PO BEDTIME [facility] Last Admin: 06/17/20 22:19 Dose: 81 mg Documented by: Atorvastatin Calcium (Atorvastatin 40 Mg Tab) 40 mg PO BEDTIME [facility] Last Admin: 06/17/20 22:18 Dose: 40 mg Documented by: Baclofen (Baclofen 10 Mg Tab) 10 mg PO QID [facility] Last Admin: 06/17/20 22:19 Dose: 10 mg Documented by: Buspirone HCl (Buspirone 15 Mg Tab) 30 mg PO BID [facility] Last Admin: 06/17/20 22:19 Dose: 30 mg Documented by: Carbidopa/Levodopa (Carbidopa/Levodopa 25-100 Mg Tab) 1 tab PO QID [facility] Last Admin: 06/17/20 22:19 Dose: 1 tab Documented by: Cyclobenzaprine HCl (Cyclobenzaprine 10 Mg Tab) 10 mg PO TID [facility] Last Admin: 06/17/20 22:17 Dose: 10 mg Documented by: Fentanyl (Fentanyl 75 Mcg/Hr Transdermal Patch) 75 mcg TRDERM Q72H [facility] Last Admin: 06/18/20 06:55 Dose: Not Given Documented by: Fentanyl (Fentanyl 75 Mcg/Hr Transdermal Patch) 75 mcg TRDERM Q72H [facility] Gabapentin (Gabapentin 100 Mg Cap) 200 mg PO TID [facility] Last Admin: 06/17/20 22:16 Dose: 200 mg Documented by: Hydrochlorothiazide (Hydrochlorothiazide 12.5 Mg Cap) 12.5 mg PO DAILY [facility] Hydromorphone HCl (Hydromorphone 2 Mg Tab) 2 mg PO Q6H PRN PRN Reason: Pain Ceftriaxone Sodium 2 gm/ (Sodium Chloride) 100 mls @ 200 mls/hr IV ONETIME ONE Stop: 06/17/20 16:59 Last Admin: 06/17/20 16:54 Dose: 200 mls/hr Documented by: Sodium Chloride (Normal Saline) 100 mls @ 60 mls/hr IV ASDIRECTED [facility] Last Admin: 06/17/20 18:24 Dose: 60 mls/hr Documented by: Azithromycin 500 mg/ Sodium (Chloride) 250 mls @ 250 mls/hr IV Q24H [facility] Last Admin: 06/18/20 20:34 Dose: 250 mls/hr Documented by: Piperacillin Sod/Tazobactam (Sod 4.5 gm/ Sodium Chloride) 100 mls @ 200 mls/hr IV ONETIME ONE Stop: 06/17/20 20:44 Last Admin: 06/17/20 22:10 Dose: 200 mls/hr Documented by: Sodium Chloride (Normal Saline) 1,000 mls @ 50 mls/hr IV ASDIRECTED [facility] Sodium Chloride (Normal Saline) 1,000 mls @ 65 mls/hr IV ASDIRECTED [facility] Last Admin: 06/17/20 22:05 Dose: 65 mls/hr Documented by: Sodium Chloride (Normal Saline) 500 mls @ 999 mls/hr IV ONETIME ONE Stop: 06/18/20 00:30 Last Admin: 06/18/20 02:21 Dose: Not Given Documented by: Iopamidol (Iopamidol 755 Mg/Ml 100 Ml Bottle) 100 ml IVPUSH ONETIME ONE Stop: 06/17/20 18:22 Last Admin: 06/17/20 18:22 Dose: 100 ml Documented by: Lorazepam (Lorazepam 1 Mg Tab) 1 mg PO BID@1200,1600 [facility] Last Admin: 06/17/20 22:35 Dose: Not Given Documented by: Lorazepam (Lorazepam 1 Mg Tab) 1 mg FTUBE BID@1200,1600 [facility] Lorazepam (Lorazepam 1 Mg Tab) 1 mg FTUBE BID@1200,1600 [facility] Lorazepam (Lorazepam 1 Mg Tab) 0.5 mg FTUBE BID@1200,1600 [facility] Last Admin: 06/18/20 15:43 Dose: 0.5 mg Documented by: Losartan Potassium (Losartan 50 Mg Tab) 50 mg PO DAILY [facility] Last Admin: 06/17/20 23:01 Dose: Not Given Documented by: Magnesium Oxide (Magnesium Oxide 400 Mg Tab) 400 mg PO BID [facility] Last Admin: 06/17/20 22:18 Dose: 400 mg Documented by: Miscellaneous Information (Remove Fentanyl 75 Mcg Patch) 1 ea TRDERM Q72H [facility] Non-Formulary Medication (Lactose-Reduced Food/Fiber [Jevity 1.2 Nixon Liquid]) 237 ml PEGTUBE TID PRN PRN Reason: Other Polyethylene Glycol (Polyethylene Glycol 3350 Powder 17 Gm Packet) 17 gm PO DAILY [facility] Last Admin: 06/17/20 23:13 Dose: 17 gm Documented by: Senna/Docusate Sodium (Docusate Sodium/Sennosides 50-8.6 Mg Tab) 1 tab PO DAILY [facility] Sertraline HCl (Sertraline 50 Mg Tab) 100 mg PO BEDTIME [facility] Last Admin: 06/17/20 22:18 Dose: 100 mg Documented by: Sodium Chloride (Sodium Chloride 0.9% 10 Ml Syringe) 10 ml FLUSH ASDIRECTED PRN PRN Reason: Keep Vein Open Last Admin: 06/17/20 16:54 Dose: 10 ml Documented by: Terazosin HCl (Terazosin 5 Mg Cap) 5 mg PO BID [facility] Last Admin: 06/17/20 23:12 Dose: 5 mg Documented by: Trazodone HCl (Trazodone 50 Mg Tab) 150 mg PO BEDTIME [facility] Last Admin: 06/17/20 22:18 Dose: 150 mg Documented by: Valacyclovir HCl (Valacyclovir 1,000 Mg Tab) 1,000 mg PO ONETIME ONE Stop: 06/17/20 16:29 Last Admin: 06/17/20 17:10 Dose: 1,000 mg Documented by: Valacyclovir HCl (Valacyclovir 1,000 Mg Tab) 1,000 mg PO TID [facility] Last Admin: 06/17/20 22:19 Dose: 1,000 mg Documented by: Valacyclovir HCl (Valacyclovir 1,000 Mg Tab) 1,000 mg .XX TID [facility] Last Admin: 06/18/20 08:07 Dose: 1,000 mg Documented by: - Exam General: Alert, Oriented, Cooperative HEENT: Pupils Equal, Mucous Membr. Moist/[place] Neck: Supple, No JVD Lungs: Normal Respiratory Effort, Rhonchi (Left lower lobe ) Cardiovascular: Regular Rate, Regular Rhythm, Murmurs (1/6 systolic ) GI/Abdominal Exam: Normal Bowel Sounds, Soft, Non-Tender, No Distention Extremities: Limited Range of Motion, Other (atrophy and flexion contractures BL upper and lower extremities ). No: Increased Warmth, Mottled Skin: Warm, Dry, Intact Neurological: No New Focal Deficit Psy/Mental Status: Alert, Normal Affect, Normal Mood - Patient Data Lab Results Last 24 hrs: Laboratory Results - last 24 hr 06/19/20 06/19/20 Range/Units 05:03 05:03 WBC 4.81 (4.23-9.07) K/mm3 RBC 4.16 L (4.63-6.08) M/mm3 Hgb 11.7 L (13.7-17.5) gm/dl Hct 35.8 L (40.1-51.0) % MCV 86.1 (79.0-92.2) fl MCH 28.1 (25.7-32.2) pg MCHC 32.7 (32.2-35.5) g/dl RDW Std Deviation 40.3 (35.1-43.9) fL Plt Count 160 L (163-337) K/mm3 MPV 11.2 (9.4-12.3) fl Neut % (Auto) 85.7 H (34.0-67.9) % Lymph % (Auto) 13.1 L (21.8-53.1) % [place] % (Auto) 1.2 L (5.3-12.2) % Eos % (Auto) 0 L (0.8-7.0) Baso % (Auto) 0.0 L (0.1-1.2) % Neut # (Auto) 4.12 (1.78-5.38) K/mm3 Lymph # (Auto) 0.63 L (1.32-3.57) K/mm3 [place] # (Auto) 0.06 L (0.30-0.82) K/mm3 Eos # (Auto) 0.00 L (0.04-0.54) K/mm3 Baso # (Auto) 0.00 L (0.01-0.08) K/mm3 Manual Slide Review Abnormal smear Sodium 140 (136-145) mEq/L Potassium 4.2 (3.5-5.1) mEq/L Chloride 105 (98-107) mEq/L Carbon Dioxide 27 (21-32) mEq/L Anion Gap 12.2 (5-15) BUN 17 (7-18) mg/dL Creatinine 0.6 L (0.7-1.3) mg/dL Est Cr Clr Drug Dosing 124.49 mL/min Estimated GFR (MDRD) > 60 (>60) mL/min BUN/Creatinine Ratio 28.3 H (14-18) Glucose 107 (80-115) mg/dL Calcium 8.1 L (8.5-10.1) mg/dL Total Bilirubin 0.7 (0.2-1.0) mg/dL AST 13 L (15-37) U/L ALT 10 L (16-63) U/L Alkaline Phosphatase 57 (46-116) U/L Total Protein 6.2 L (6.4-8.2) g/dl Albumin 2.5 L (3.4-5.0) g/dl Globulin 3.7 gm/dL Albumin/Globulin Ratio 0.7 L (1-2) Result Diagrams: 06/19/20 05:03 06/19/20 05:03 Rommel Results Last 24 hrs: Microbiology 06/17/20 16:50 Aerobic Blood Culture - Preliminary Blood - Venous - Lab Draw NO GROWTH AFTER 1 DAY Anaerobic Blood Culture - Preliminary NO GROWTH AFTER 1 DAY 06/17/20 17:05 Aerobic Blood Culture - Preliminary Blood - Venous NO GROWTH AFTER 1 DAY Anaerobic Blood Culture - Preliminary NO GROWTH AFTER 1 DAY Sepsis Event Note - Evaluation Sepsis Screening Result: No Definite Risk - Focused Exam Vital Signs: Vital Signs Temp Pulse Resp BP BP Pulse Ox Pulse Ox 06/19/20 09:04 120/87 06/19/20 09:01 120/87 06/19/20 08:25 94 L 06/19/20 08:00 98.0 F 18 120/87 93 L 06/19/20 06:00 76 16 93 L 06/19/20 04:00 97.6 F 57 L 14 115/61 94 L 06/19/20 03:00 56 L 15 94 L 06/19/20 02:00 61 17 93 L 06/19/20 01:00 57 L 19 94 L 06/19/20 00:00 97.5 F 14 103/51 L 94 L 06/18/20 23:00 58 L 10 L 94 L - Problem List Review Problem List Initiated/Reviewed/Updated: Yes - My Orders Last 24 Hours: My Active Orders 06/18/20 13:00 Acyclovir [Zovirax] 1,000 mg Sodium Chloride 0.9% [Normal Saline] 100 ml IV Q8H methylPREDNISolone Sod Succ [Solu-MEDROL] 40 mg IVPUSH Q12H 06/18/20 17:47 Midodrine 5 mg PO TIDAC PRN 06/19/20 05:03 PROCALCITONIN [REF] Routine - Assessment Assessment:: Acute Hypoxic Respiratory Failure -Most likely post obstructive pneumonia predicated on CT findings. -CTA Chest: No PE, but did show patchy groundless and reticular opacities in the left upper lobe dense infiltrate with air bronchograms in the left lower lobe associated with volume loss there is occlusion of the left lower lobe bronchus at its origin, soft tissue density mass measuring 1.6 cm with mediastinal and left hilar lymphadenopathy. Shingles -? Stallings [place] Syndrome -Right facial involvement, starting to have R eye involvement -On Valacylovir 1000mg TID Elevated D-dimer -CTA of chest negative for pulmonary embolism -Dimer 2.15 suspect secondary to possible malignancy/pulmonary mass -Venous US BLE: Pending Elevated CRP -20.1 -->16.8 -Ongoing Shingles Chronic Pain -On fentanyl patch as outpatient Parkinson's disease Progressive supra nuclear palsy - Plan Plan:: Pt is a 64 yom with a hx of Parkinson's disease, progressive supranuclear palsy, dysphagia, HTN, and chronic severe generalized pain who was brought to the ER from [facility] with cough, sob and oxygen desaturation x 2 days. Plan: Downgrade to Med-surgical telemetry Solu-Medrol 60mg q12 hrs IV Acyclovir TID If worsening vision continues despite IV acyclovir and Steroids , could consider transfer for ophthalmology. Blood cultures pending Sputum culture pending ANH Henry Azithromycin Continue carbidopa and levodopa Continue HCTZ and losartan. Hydralazine prn for HTN Tube feeds per Dietary with free water flushes, goal 75cc/hr continue home Dilaudid 2 mg 3 times daily and fentanyl patch. continue gabapentin 200mg tid and Flexeril. He is also on trazodone 8150mg at bedtime. DVT prophylaxis: Lovenox Disposition: Downgrade to med-surg Tele PT OT Dispo: Patient expected to discharge in 24-48 hrs to prior arrangement Greater than 35 minutes spent total patient care including critical care time. Patient currently in the intensive care unit on Levophed.
[2020-06-19] MEDS: LORazepam 0.5 MG Tab FTUBE SCH ×2 (11:55→15:14)
[2020-06-19] MEDS: Aspirin 81 MG Tab.Chew PEGTUBE SCH (20:20)
[2020-06-19] MEDS: traZODone 50 MG Tab FTUBE SCH (20:23)
[2020-06-19] MEDS: Enoxaparin 40 MG/0.4 ML Syringe SUBCUT SCH (20:24)
[2020-06-19] MEDS: Sertraline 50 MG Tab FTUBE SCH (20:24)
[2020-06-19] MEDS: atorvaSTATin 40 MG Tab PEGTUBE SCH (20:24)
[2020-06-20] MEDS: methylPREDNISolone Sodium Succinate 40 MG/1 ML SDV IVPUSH SCH ×2 (00:42→12:08)
[2020-06-20] MEDS: Acetaminophen Soln 650 MG/20.3 ML UD Cup PEGTUBE PRN (00:44)
[2020-06-20] MEDS: Piperacillin/Tazobactam 4.5 GM in Sodium Chloride 0.9% 100 ML IV SCH ×3 (04:53→20:43)
[2020-06-20] MEDS: HYDROmorphone 2 MG Tab FTUBE PRN (05:09)
[2020-06-20] MEDS: Polyethylene Glycol 3350 Powder 17 GM Packet PEGTUBE SCH (08:07)
[2020-06-20] MEDS: Terazosin 5 MG Cap PEGTUBE SCH ×2 (08:07→20:46)
[2020-06-20] MEDS: busPIRone 15 MG Tab PEGTUBE SCH ×2 (08:08→20:44)
[2020-06-20] MEDS: Gabapentin 100 MG Cap PEGTUBE SCH ×3 (08:08→20:44)
[2020-06-20] MEDS: Losartan 50 MG Tab FTUBE SCH (08:08)
[2020-06-20] MEDS: Cyclobenzaprine 10 MG Tab PEGTUBE SCH ×3 (08:09→20:43)
[2020-06-20] MEDS: Hydrochlorothiazide 25 MG Tab FTUBE SCH (08:10)
[2020-06-20] MEDS: Carbidopa/Levodopa 25-100 MG Tab PEGTUBE SCH ×4 (08:12→20:45)
[2020-06-20] MEDS: Magnesium Oxide 400 MG Tab FTUBE SCH ×2 (08:12→20:45)
[2020-06-20] MEDS: Baclofen 10 MG Tab PEGTUBE SCH ×4 (08:12→20:44)
[2020-06-20] MEDS: guaiFENesin 600 MG Tab.ER PO SCH ×4 (08:12→21:17)
[2020-06-20] MEDS: Pantoprazole 40 MG Vial IV SCH (09:29)
--- NOTE | 2020-06-20 09:42 | PCM.PN ---
- General Info Date of Service: 06/20/20 Subjective Update: Overnight no events reported per patient nursing staff. At this time patient is feeling mildly anxious, he is also complaining of ongoing spasm secondary to his flexion contractures of the right hand as well as his feet. The patient states that his vision has not been getting worse and is about the same as yesterday. Patient denies any other complaints. Functional Status: Reports: Other (Anxiety , Spasm) - Review of Systems General: Reports: No Symptoms HEENT: Reports: No Symptoms Pulmonary: Reports: No Symptoms Cardiovascular: Reports: No Symptoms Gastrointestinal: Reports: No Symptoms Musculoskeletal: Reports: Other (spasm ) Skin: Reports: No Symptoms Neurological: Reports: No Symptoms - Patient Data Vitals - Most Recent: Last Vital Signs Temp 98.1 F 06/20/20 08:00 Pulse 96 06/20/20 08:00 Resp 18 06/20/20 08:00 BP 143/76 H 06/20/20 08:08 Pulse Ox 99 06/20/20 08:00 Weight - Most Recent: 153 lb 3.2 oz I&O - Last 24 Hours: Intake & Output 06/19/20 06/20/20 06/20/20 22:59 06:59 14:59 Intake Total 836 526 103 Output Total 450 525 175 Balance 386 1 -72 Lab Results Last 24 Hours: Laboratory Results - last 24 hr 06/19/20 06/20/20 06/20/20 Range/Units 05:03 05:37 05:37 WBC 5.63 (4.23-9.07) K/mm3 RBC 4.57 L (4.63-6.08) M/mm3 Hgb 12.9 L (13.7-17.5) gm/dl Hct 38.6 L (40.1-51.0) % MCV 84.5 (79.0-92.2) fl MCH 28.2 (25.7-32.2) pg MCHC 33.4 (32.2-35.5) g/dl RDW Std Deviation 39.5 (35.1-43.9) fL Plt Count 172 (163-337) K/mm3 MPV 10.5 (9.4-12.3) fl Neut % (Auto) 84.5 H (34.0-67.9) % Lymph % (Auto) 11.2 L (21.8-53.1) % Banks % (Auto) 3.9 L (5.3-12.2) % Eos % (Auto) 0 L (0.8-7.0) Baso % (Auto) 0.2 (0.1-1.2) % Neut # (Auto) 4.76 (1.78-5.38) K/mm3 Lymph # (Auto) 0.63 L (1.32-3.57) K/mm3 Banks # (Auto) 0.22 L (0.30-0.82) K/mm3 Eos # (Auto) 0.00 L (0.04-0.54) K/mm3 Baso # (Auto) 0.01 (0.01-0.08) K/mm3 Sodium 138 (136-145) mEq/L Potassium 4.2 (3.5-5.1) mEq/L Chloride 102 (98-107) mEq/L Carbon Dioxide 28 (21-32) mEq/L Anion Gap 12.2 (5-15) BUN 19 H (7-18) mg/dL Creatinine 0.7 (0.7-1.3) mg/dL Est Cr Clr Drug Dosing 107.54 mL/min Estimated GFR (MDRD) > 60 (>60) mL/min BUN/Creatinine Ratio 27.1 H (14-18) Glucose 173 H (80-115) mg/dL Calcium 8.6 (8.5-10.1) mg/dL Total Bilirubin 0.5 (0.2-1.0) mg/dL AST 17 (15-37) U/L ALT 14 L (16-63) U/L Alkaline Phosphatase 57 (46-116) U/L Total Protein 6.7 (6.4-8.2) g/dl Albumin 2.8 L (3.4-5.0) g/dl Globulin 3.9 gm/dL Albumin/Globulin Ratio 0.7 L (1-2) Procalcitonin 0.17 H ng/mL Rommel Results Last 24 Hours: Microbiology 06/17/20 16:50 Aerobic Blood Culture - Preliminary Blood - Venous - Lab Draw NO GROWTH AFTER 2 DAYS Anaerobic Blood Culture - Preliminary NO GROWTH AFTER 2 DAYS 06/17/20 17:05 Aerobic Blood Culture - Preliminary Blood - Venous NO GROWTH AFTER 2 DAYS Anaerobic Blood Culture - Preliminary NO GROWTH AFTER 2 DAYS Med Orders - Current: Current Medications Acetaminophen (Acetaminophen Soln 650 Mg/20.3 Ml Ud Cup) 650 mg PEGTUBE Q6H PRN PRN Reason: Pain (Mild 1-3)/fever Last Admin: 06/20/20 00:44 Dose: 650 mg Documented by: Aspirin (Aspirin 81 Mg Tab.Chew) 81 mg PEGTUBE BEDTIME ON LICENSE OF [facility] Last Admin: 06/19/20 20:20 Dose: 81 mg Documented by: Atorvastatin Calcium (Atorvastatin 40 Mg Tab) 40 mg PEGTUBE BEDTIME ON LICENSE OF [facility] Last Admin: 06/19/20 20:24 Dose: 40 mg Documented by: Baclofen (Baclofen 10 Mg Tab) 10 mg PEGTUBE QID ON LICENSE OF [facility] Last Admin: 06/20/20 08:12 Dose: 10 mg Documented by: Buspirone HCl (Buspirone 15 Mg Tab) 30 mg PEGTUBE BID ON LICENSE OF [facility] Last Admin: 06/20/20 08:08 Dose: 30 mg Documented by: Carbidopa/Levodopa (Carbidopa/Levodopa 25-100 Mg Tab) 1 tab PEGTUBE QID ON LICENSE OF [facility] Last Admin: 06/20/20 08:12 Dose: 1 tab Documented by: Cyclobenzaprine HCl (Cyclobenzaprine 10 Mg Tab) 10 mg PEGTUBE TID ON LICENSE OF [facility] Last Admin: 06/20/20 08:09 Dose: 10 mg Documented by: Enoxaparin Sodium (Enoxaparin 40 Mg/0.4 Ml Syringe) 40 mg SUBCUT BEDTIME ON LICENSE OF [facility] Last Admin: 06/19/20 20:24 Dose: 40 mg Documented by: Fentanyl (Fentanyl 75 Mcg/Hr Transdermal Patch) 75 mcg TRDERM Q72H ON LICENSE OF [facility] Last Admin: 06/18/20 20:40 Dose: 75 mcg Documented by: Gabapentin (Gabapentin 100 Mg Cap) 200 mg PEGTUBE TID ON LICENSE OF [facility] Last Admin: 06/20/20 08:08 Dose: 200 mg Documented by: Guaifenesin (Guaifenesin 600 Mg Tab.Er) 600 mg PO TID ON LICENSE OF [facility] Last Admin: 06/20/20 09:29 Dose: 600 mg Documented by: Hydrochlorothiazide (Hydrochlorothiazide 25 Mg Tab) 12.5 mg FTUBE DAILY ON LICENSE OF [facility] Last Admin: 06/20/20 08:10 Dose: 12.5 mg Documented by: Hydromorphone HCl (Hydromorphone 2 Mg Tab) 2 mg FTUBE Q6H PRN PRN Reason: Pain Last Admin: 06/20/20 05:09 Dose: 2 mg Documented by: Promethazine HCl 12.5 mg/ (Sodium Chloride) 50.5 mls @ 100 mls/hr IV Q6H PRN PRN Reason: Nausea/Vomiting Piperacillin Sod/Tazobactam (Sod 4.5 gm/ Sodium Chloride) 100 mls @ 25 mls/hr IV Q8H ON LICENSE OF [facility] Last Admin: 06/20/20 04:53 Dose: 25 mls/hr Documented by: Norepinephrine Bitartrate 4 mg (/ Dextrose/Water) 250 mls @ 7.5 mls/hr IV TITRATE ON LICENSE OF [facility]; Protocol Last Titration: 06/18/20 14:00 Dose: 0 mcg/min, 0 mls/hr Documented by: Acyclovir 1,000 mg/ Sodium (Chloride) 120 mls @ 100 mls/hr IV Q8H ON LICENSE OF [facility] Last Admin: 06/20/20 04:53 Dose: 100 mls/hr Documented by: Lorazepam (Lorazepam 0.5 Mg Tab) 0.5 mg FTUBE BID@1200,1600 ON LICENSE OF [facility] Last Admin: 06/19/20 15:14 Dose: 0.5 mg Documented by: Lorazepam (Lorazepam 2 Mg/Ml Sdv) 1 mg IVPUSH Q4H PRN PRN Reason: anxiety Losartan Potassium (Losartan 50 Mg Tab) 50 mg FTUBE DAILY ON LICENSE OF [facility] Last Admin: 06/20/20 08:08 Dose: 50 mg Documented by: Magnesium Oxide (Magnesium Oxide 400 Mg Tab) 400 mg FTUBE BID ON LICENSE OF [facility] Last Admin: 06/20/20 08:12 Dose: 400 mg Documented by: Methylprednisolone Sodium Succinate (Methylprednisolone Sodium Succinate 40 Mg/1 Ml Sdv) 40 mg IVPUSH Q12H ON LICENSE OF [facility] Last Admin: 06/20/20 00:42 Dose: 40 mg Documented by: Midodrine (Midodrine 5 Mg Tab) 5 mg PO TIDAC PRN PRN Reason: Hypotension Miscellaneous Information (Remove Fentanyl 75 Mcg Patch) 1 ea TRDERM Q72H ON LICENSE OF [facility] Last Admin: 06/18/20 20:39 Dose: 1 ea Documented by: Pantoprazole Sodium (Pantoprazole 40 Mg Vial) 40 mg IV DAILY ON LICENSE OF [facility] Last Admin: 06/20/20 09:29 Dose: 40 mg Documented by: Polyethylene Glycol (Polyethylene Glycol 3350 Powder 17 Gm Packet) 17 gm PEGTUBE DAILY ON LICENSE OF [facility] Last Admin: 06/20/20 08:07 Dose: 17 gm Documented by: Senna/Docusate Sodium (Docusate Sodium/Sennosides 50-8.6 Mg Tab) 1 tab FTUBE DAILY ON LICENSE OF [facility] Last Admin: 06/20/20 08:11 Dose: 1 tab Documented by: Sertraline HCl (Sertraline 50 Mg Tab) 100 mg FTUBE BEDTIME ON LICENSE OF [facility] Last Admin: 06/19/20 20:24 Dose: 100 mg Documented by: Sodium Chloride (Sodium Chloride 0.9% 10 Ml Syringe) 10 ml FLUSH ASDIRECTED ON LICENSE OF [facility] Last Admin: 06/17/20 18:23 Dose: 10 ml Documented by: Terazosin HCl (Terazosin 5 Mg Cap) 5 mg PEGTUBE BID ON LICENSE OF [facility] Last Admin: 06/20/20 08:07 Dose: 5 mg Documented by: Trazodone HCl (Trazodone 50 Mg Tab) 150 mg FTUBE BEDTIME ON LICENSE OF [facility] Last Admin: 06/19/20 20:23 Dose: 150 mg Documented by: Trolamine Salicylate (Trolamine Salicylate/Aloe Vera 10% Crm 85 Gm Tube) 0 gm TOP Q4H PRN PRN Reason: Pain Last Admin: 06/18/20 21:14 Dose: 1 applic Documented by: Discontinued Medications Acetaminophen (Acetaminophen 325 Mg Tab) 650 mg PO Q6H PRN PRN Reason: Pain (Mild 1-3)/fever Last Admin: 06/17/20 22:18 Dose: 650 mg Documented by: Aspirin (Aspirin 81 Mg Tab.Ec) 81 mg PO BEDTIME ON LICENSE OF [facility] Last Admin: 06/17/20 22:19 Dose: 81 mg Documented by: Atorvastatin Calcium (Atorvastatin 40 Mg Tab) 40 mg PO BEDTIME ON LICENSE OF [facility] Last Admin: 06/17/20 22:18 Dose: 40 mg Documented by: Baclofen (Baclofen 10 Mg Tab) 10 mg PO QID ON LICENSE OF [facility] Last Admin: 06/17/20 22:19 Dose: 10 mg Documented by: Buspirone HCl (Buspirone 15 Mg Tab) 30 mg PO BID ON LICENSE OF [facility] Last Admin: 06/17/20 22:19 Dose: 30 mg Documented by: Carbidopa/Levodopa (Carbidopa/Levodopa 25-100 Mg Tab) 1 tab PO QID ON LICENSE OF [facility] Last Admin: 06/17/20 22:19 Dose: 1 tab Documented by: Cyclobenzaprine HCl (Cyclobenzaprine 10 Mg Tab) 10 mg PO TID ON LICENSE OF [facility] Last Admin: 06/17/20 22:17 Dose: 10 mg Documented by: Fentanyl (Fentanyl 75 Mcg/Hr Transdermal Patch) 75 mcg TRDERM Q72H ON LICENSE OF [facility] Last Admin: 06/18/20 06:55 Dose: Not Given Documented by: Fentanyl (Fentanyl 75 Mcg/Hr Transdermal Patch) 75 mcg TRDERM Q72H ON LICENSE OF [facility] Gabapentin (Gabapentin 100 Mg Cap) 200 mg PO TID ON LICENSE OF [facility] Last Admin: 06/17/20 22:16 Dose: 200 mg Documented by: Hydrochlorothiazide (Hydrochlorothiazide 12.5 Mg Cap) 12.5 mg PO DAILY ON LICENSE OF [facility] Hydromorphone HCl (Hydromorphone 2 Mg Tab) 2 mg PO Q6H PRN PRN Reason: Pain Ceftriaxone Sodium 2 gm/ (Sodium Chloride) 100 mls @ 200 mls/hr IV ONETIME ONE Stop: 06/17/20 16:59 Last Admin: 06/17/20 16:54 Dose: 200 mls/hr Documented by: Sodium Chloride (Normal Saline) 100 mls @ 60 mls/hr IV ASDIRECTED ON LICENSE OF [facility] Last Admin: 06/17/20 18:24 Dose: 60 mls/hr Documented by: Azithromycin 500 mg/ Sodium (Chloride) 250 mls @ 250 mls/hr IV Q24H ON LICENSE OF [facility] Last Admin: 06/18/20 20:34 Dose: 250 mls/hr Documented by: Piperacillin Sod/Tazobactam (Sod 4.5 gm/ Sodium Chloride) 100 mls @ 200 mls/hr IV ONETIME ONE Stop: 06/17/20 20:44 Last Admin: 06/17/20 22:10 Dose: 200 mls/hr Documented by: Sodium Chloride (Normal Saline) 1,000 mls @ 50 mls/hr IV ASDIRECTED ON LICENSE OF [facility] Sodium Chloride (Normal Saline) 1,000 mls @ 65 mls/hr IV ASDIRECTED ON LICENSE OF [facility] Last Admin: 06/17/20 22:05 Dose: 65 mls/hr Documented by: Sodium Chloride (Normal Saline) 500 mls @ 999 mls/hr IV ONETIME ONE Stop: 06/18/20 00:30 Last Admin: 06/18/20 02:21 Dose: Not Given Documented by: Sodium Chloride (Normal Saline) 1,000 mls @ 60 mls/hr IV ASDIRECTED ON LICENSE OF [facility] Stop: 06/19/20 11:00 Last Admin: 06/18/20 18:15 Dose: 60 mls/hr Documented by: Iopamidol (Iopamidol 755 Mg/Ml 100 Ml Bottle) 100 ml IVPUSH ONETIME ONE Stop: 06/17/20 18:22 Last Admin: 06/17/20 18:22 Dose: 100 ml Documented by: Lorazepam (Lorazepam 1 Mg Tab) 1 mg PO BID@1200,1600 ON LICENSE OF [facility] Last Admin: 06/17/20 22:35 Dose: Not Given Documented by: Lorazepam (Lorazepam 1 Mg Tab) 1 mg FTUBE BID@1200,1600 ON LICENSE OF [facility] Lorazepam (Lorazepam 1 Mg Tab) 1 mg FTUBE BID@1200,1600 ON LICENSE OF [facility] Lorazepam (Lorazepam 1 Mg Tab) 0.5 mg FTUBE BID@1200,1600 ON LICENSE OF [facility] Last Admin: 06/18/20 15:43 Dose: 0.5 mg Documented by: Losartan Potassium (Losartan 50 Mg Tab) 50 mg PO DAILY ON LICENSE OF [facility] Last Admin: 06/17/20 23:01 Dose: Not Given Documented by: Magnesium Oxide (Magnesium Oxide 400 Mg Tab) 400 mg PO BID ON LICENSE OF [facility] Last Admin: 06/17/20 22:18 Dose: 400 mg Documented by: Miscellaneous Information (Remove Fentanyl 75 Mcg Patch) 1 ea TRDERM Q72H ON LICENSE OF [facility] Non-Formulary Medication (Lactose-Reduced Food/Fiber [Jevity 1.2 Nixon Liquid]) 237 ml PEGTUBE TID PRN PRN Reason: Other Polyethylene Glycol (Polyethylene Glycol 3350 Powder 17 Gm Packet) 17 gm PO DAILY ON LICENSE OF [facility] Last Admin: 06/17/20 23:13 Dose: 17 gm Documented by: Senna/Docusate Sodium (Docusate Sodium/Sennosides 50-8.6 Mg Tab) 1 tab PO DAILY ON LICENSE OF [facility] Sertraline HCl (Sertraline 50 Mg Tab) 100 mg PO BEDTIME ON LICENSE OF [facility] Last Admin: 06/17/20 22:18 Dose: 100 mg Documented by: Sodium Chloride (Sodium Chloride 0.9% 10 Ml Syringe) 10 ml FLUSH ASDIRECTED PRN PRN Reason: Keep Vein Open Last Admin: 06/17/20 16:54 Dose: 10 ml Documented by: Terazosin HCl (Terazosin 5 Mg Cap) 5 mg PO BID ON LICENSE OF [facility] Last Admin: 06/17/20 23:12 Dose: 5 mg Documented by: Trazodone HCl (Trazodone 50 Mg Tab) 150 mg PO BEDTIME ON LICENSE OF [facility] Last Admin: 06/17/20 22:18 Dose: 150 mg Documented by: Valacyclovir HCl (Valacyclovir 1,000 Mg Tab) 1,000 mg PO ONETIME ONE Stop: 06/17/20 16:29 Last Admin: 06/17/20 17:10 Dose: 1,000 mg Documented by: Valacyclovir HCl (Valacyclovir 1,000 Mg Tab) 1,000 mg PO TID ON LICENSE OF [facility] Last Admin: 06/17/20 22:19 Dose: 1,000 mg Documented by: Valacyclovir HCl (Valacyclovir 1,000 Mg Tab) 1,000 mg .XX TID ON LICENSE OF [facility] Last Admin: 06/18/20 08:07 Dose: 1,000 mg Documented by: - Exam General: Alert, Oriented HEENT: Pupils Equal, Pupils Reactive, Mucous Membr. Moist/[place]. No: Scleral Icterus Neck: No JVD Lungs: Decreased Breath Sounds, Rhonchi (LLL ) Cardiovascular: Regular Rate, Regular Rhythm, Murmurs (02/22 ) GI/Abdominal Exam: Normal Bowel Sounds, Soft, Non-Tender, No Distention, Other (PEG tube ). No: Rigid, Rebound Extremities: Limited Range of Motion, Other (flexion contractures, BL U/LE, Rigid ) Skin: Warm, Dry, Intact, Other (Vesicular lesions in various stages of healing involving the right forehead, right lateral aspect of nose, eyelid) Neurological: No New Focal Deficit - Patient Data Lab Results Last 24 hrs: Laboratory Results - last 24 hr 06/19/20 06/20/20 06/20/20 Range/Units 05:03 05:37 05:37 WBC 5.63 (4.23-9.07) K/mm3 RBC 4.57 L (4.63-6.08) M/mm3 Hgb 12.9 L (13.7-17.5) gm/dl Hct 38.6 L (40.1-51.0) % MCV 84.5 (79.0-92.2) fl MCH 28.2 (25.7-32.2) pg MCHC 33.4 (32.2-35.5) g/dl RDW Std Deviation 39.5 (35.1-43.9) fL Plt Count 172 (163-337) K/mm3 MPV 10.5 (9.4-12.3) fl Neut % (Auto) 84.5 H (34.0-67.9) % Lymph % (Auto) 11.2 L (21.8-53.1) % Banks % (Auto) 3.9 L (5.3-12.2) % Eos % (Auto) 0 L (0.8-7.0) Baso % (Auto) 0.2 (0.1-1.2) % Neut # (Auto) 4.76 (1.78-5.38) K/mm3 Lymph # (Auto) 0.63 L (1.32-3.57) K/mm3 Banks # (Auto) 0.22 L (0.30-0.82) K/mm3 Eos # (Auto) 0.00 L (0.04-0.54) K/mm3 Baso # (Auto) 0.01 (0.01-0.08) K/mm3 Sodium 138 (136-145) mEq/L Potassium 4.2 (3.5-5.1) mEq/L Chloride 102 (98-107) mEq/L Carbon Dioxide 28 (21-32) mEq/L Anion Gap 12.2 (5-15) BUN 19 H (7-18) mg/dL Creatinine 0.7 (0.7-1.3) mg/dL Est Cr Clr Drug Dosing 107.54 mL/min Estimated GFR (MDRD) > 60 (>60) mL/min BUN/Creatinine Ratio 27.1 H (14-18) Glucose 173 H (80-115) mg/dL Calcium 8.6 (8.5-10.1) mg/dL Total Bilirubin 0.5 (0.2-1.0) mg/dL AST 17 (15-37) U/L ALT 14 L (16-63) U/L Alkaline Phosphatase 57 (46-116) U/L Total Protein 6.7 (6.4-8.2) g/dl Albumin 2.8 L (3.4-5.0) g/dl Globulin 3.9 gm/dL Albumin/Globulin Ratio 0.7 L (1-2) Procalcitonin 0.17 H ng/mL Result Diagrams: 06/20/20 05:37 06/20/20 05:37 Rommel Results Last 24 hrs: Microbiology 06/17/20 16:50 Aerobic Blood Culture - Preliminary Blood - Venous - Lab Draw NO GROWTH AFTER 2 DAYS Anaerobic Blood Culture - Preliminary NO GROWTH AFTER 2 DAYS 06/17/20 17:05 Aerobic Blood Culture - Preliminary Blood - Venous NO GROWTH AFTER 2 DAYS Anaerobic Blood Culture - Preliminary NO GROWTH AFTER 2 DAYS Sepsis Event Note - Evaluation Sepsis Screening Result: No Definite Risk - Focused Exam Vital Signs: Vital Signs Temp Pulse Pulse Resp BP BP Pulse Ox 06/20/20 08:08 143/76 H 06/20/20 08:07 143/76 H 06/20/20 08:00 98.1 F 96 18 143/76 H 99 06/20/20 04:01 48 L 13 97 06/20/20 04:00 97.3 F 49 L 13 145/79 H 96 06/20/20 03:59 48 L 13 96 06/20/20 03:00 48 L 14 97 06/20/20 02:00 64 11 L 95 06/20/20 01:00 84 12 94 L 06/20/20 00:59 97.7 F 06/20/20 00:37 88 13 126/79 93 L 06/20/20 00:36 90 10 L 93 L 06/20/20 00:00 103 H 16 93 L 06/19/20 23:00 84 17 95 06/19/20 22:00 16 - Problem List Review Problem List Initiated/Reviewed/Updated: Yes - My Orders Last 24 Hours: My Active Orders 06/19/20 12:48 Patient Status [ADT] Routine 06/19/20 15:44 Chest Physiotherapy [RT Chest Physiotherapy] [RC] ASDIRECTED 06/20/20 09:35 LORazepam [Ativan] 1 mg IVPUSH Q4H PRN - Assessment Assessment:: Acute Hypoxic Respiratory Failure -Stable on 3LNC, desaturation with any down titration -Most likely post obstructive pneumonia predicated on CT findings. -CTA Chest: No PE, but did show patchy groundless and reticular opacities in the left upper lobe dense infiltrate with air bronchograms in the left lower lobe a ssociated with volume loss there is occlusion of the left lower lobe bronchus at its origin, soft tissue density mass measuring 1.6 cm with mediastinal and left hilar lymphadenopathy. -Blood culture negative at 48 hrs Shingles -? Stallings L[place] Syndrome -Right facial involvement, ocular exam stable, no worsening vision changes at this time -On Valacylovir 1000mg TID Elevated D-dimer -CTA of chest negative for pulmonary embolism -Dimer 2.15 suspect secondary to possible malignancy/pulmonary mass -Venous US BLE: Pending Elevated CRP -20.1 -->16.8 -Ongoing Shingles Chronic Pain -On fentanyl patch as outpatient Parkinson's disease Progressive supra nuclear palsy Anxiety Muscle Spasm/Flexion contractures - Plan Plan:: Pt is a 64 yom with a hx of Parkinson's disease, progressive supranuclear palsy, dysphagia, HTN, and chronic severe generalized pain who was brought to the ER from [facility] with cough, sob and oxygen desaturation x 2 days. Plan: Downgrade to Med-surgical telemetry Solu-Medrol 60mg q12 hrs IV Acyclovir TID, will stop after [address] on PO formulation Blood cultures pending (negative at 48 hrs) Zosyn Continue carbidopa and levodopa Continue HCTZ and losartan. Hydralazine prn for HTN Tube feeds per Dietary with free water flushes, goal 75cc/hr continue home Dilaudid 2 mg 3 times daily and fentanyl patch. continue gabapentin 200mg tid and Flexeril. He is also on trazodone 8150mg at bedtime. Ativan for anxiety DVT prophylaxis: Lovenox Disposition: Downgrade to med-surg Tele PT OT Dispo: Patient expected to discharge in 24-48 hrs to prior arrangement Greater than 35 minutes spent total patient care including critical care time. Patient currently in the intensive care unit on Levophed.
[2020-06-20] MEDS: LORazepam 2 MG/ML SDV IVPUSH PRN ×2 (09:46→13:18)
[2020-06-20] MEDS: LORazepam 0.5 MG Tab FTUBE SCH ×2 (11:51→17:23)
[2020-06-20] MEDS: Enoxaparin 40 MG/0.4 ML Syringe SUBCUT SCH (20:43)
[2020-06-20] MEDS: Aspirin 81 MG Tab.Chew PEGTUBE SCH (20:44)
[2020-06-20] MEDS: atorvaSTATin 40 MG Tab PEGTUBE SCH (20:44)
[2020-06-20] MEDS: Sertraline 50 MG Tab FTUBE SCH (20:44)
[2020-06-20] MEDS: traZODone 50 MG Tab FTUBE SCH (20:45)
[2020-06-21] MEDS: methylPREDNISolone Sodium Succinate 40 MG/1 ML SDV IVPUSH SCH (00:48)
[2020-06-21] MEDS: Piperacillin/Tazobactam 4.5 GM in Sodium Chloride 0.9% 100 ML IV SCH ×2 (03:58→12:34)
[2020-06-21] MEDS: Pantoprazole 40 MG Vial IV SCH (09:10)
[2020-06-21] MEDS: Cyclobenzaprine 10 MG Tab PEGTUBE SCH (09:10)
[2020-06-21] MEDS: Hydrochlorothiazide 25 MG Tab FTUBE SCH (09:10)
[2020-06-21] MEDS: Baclofen 10 MG Tab PEGTUBE SCH (09:10)
[2020-06-21] MEDS: Gabapentin 100 MG Cap PEGTUBE SCH (09:11)
[2020-06-21] MEDS: Magnesium Oxide 400 MG Tab FTUBE SCH (09:12)
[2020-06-21] MEDS: busPIRone 15 MG Tab PEGTUBE SCH (09:12)
[2020-06-21] MEDS: Carbidopa/Levodopa 25-100 MG Tab PEGTUBE SCH (09:12)
[2020-06-21] MEDS: guaiFENesin 600 MG Tab.ER PO SCH (09:13)
[2020-06-21] MEDS: Terazosin 5 MG Cap PEGTUBE SCH (09:15)
[2020-06-21] MEDS: Losartan 50 MG Tab FTUBE SCH (09:16)
[2020-06-21] MEDS: Polyethylene Glycol 3350 Powder 17 GM Packet PEGTUBE SCH (09:16)
--- NOTE | 2020-06-21 09:30 | PCM.DCSUM1 ---
Discharge Summary - Hospital Course Free Text/Narrative:: Discharge Dx: Acute Hypoxic Respiratory Failure Shingles Elevated D dimer Pneumonia, post obstructive Lung mass: Measuring 1.6 cm with mediastinal and hilar lymphadenopathy Chronic Pain Progressive super nuclear palsy Parkinson's disease HPI: Pt is a 64 yom with a hx of Parkinson's disease, progressive supranuclear palsy, dysphagia, HTN, and chronic severe generalized pain who was brought to the ER from [facility] with cough, sob and oxygen desaturation x 2 days. Pt also complains of chest pain, left arm pain and PEG site abdominal pain. Otherwise he is fine. In the ER, he was found to have elevation of D- dimer. CTA chest was performed, showing no PE; patchy ground glass and reticulonodular opacities in the left upper lobe. Dense infiltrate with air bronchograms in the left lower lobe associated with volume loss; there is occlus ion of the left lower lobe bronchus at its origin by a soft tissue density mass measuring at least 1.6cm; mediastinal and left hilar lymphadenopathy. Some shingles rash noted over right-sided head. But he does not know how long the rashes have been over there. He has dysphagia, for which PEG was placed on 06/[address] Roberto. Pardeep was consulted in the ER - PEG tube can be used. Hospital course: Was admitted to the hospital secondary to above HPI. The patient at time of admission did become hypotensive requiring transfer to the intensive care unit. The patient with serial Levophed however responded quickly and was able to be titrated off of Levophed within 12 hours. Was empirically treated for a suspected obstructive pneumonia predicated on CT findings of the chest. CT did show patchy groundglass and reticular opacities in the left upper lobe dense infiltrate with air bronchograms in the left lower lobe associated with volume loss and occlusion of the left lower lobe bronchus at its origin. Soft tissue density mass measuring 1.6 cm with mediastinal and left hilar lymphadenopathy. The patient was placed on Zosyn for empiric antibiotic coverage. After several days of antibiotic therapy patient was able to be titrated off of 3 L nasal cannula and was doing well on room air at x36 hours prior to discharge. The patient was also found to have shingles affecting the right forehead a right nose. He did complain of some blurred vision for which patient was placed on IV acyclovir 3 times daily as well as initiated on IV steroids. 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 Hospitalized patient was started on tube feeds secondary to his aspiration risk, he did have some associated diarrhea secondary to initiation of tube feeds. Diagnosis: Stroke: No - Discharge Data Discharge Date: 06/21/20 Discharge Disposition: DC/Tfer to [facility] Condition: Good - Referral to Home Health Primary Care Physician: Nik Hughes MD - Patient Summary/Data Consults: Consultations 06/17/20 20:01 OT Evaluation and Treatment [CONS] Routine PT Evaluation and Treatment [CONS] Routine 06/17/20 20:21 Consult to Pierogi Maker [CONS] Routine - Patient Instructions Diet: Usual Diet as Tolerated Activity: Bedrest - Discharge Plan *PRESCRIPTION DRUG MONITORING PROGRAM REVIEWED*: Not Applicable *COPY OF PRESCRIPTION DRUG MONITORING REPORT IN PATIENT DINESH: Not Applicable Prescriptions/Med Rec: levoFLOXacin [Levaquin] 750 mg PO DAILY #7 tab predniSONE [Prednisone] 10 mg PO DAILY #7 tablet predniSONE [Prednisone] 2.5 mg PO DAILY #7 tablet predniSONE [Prednisone] 5 mg PO DAILY #7 tablet valACYclovir [Valtrex] 1,000 mg PO DAILY #7 tab Home Medications: Home Meds Carbidopa/Levodopa [Carbidopa-Levodopa 25-100] 1 tab PO QID #120 tablet 10/22/19 [Rx] Gabapentin [Neurontin] 200 mg PO TID #120 dose 10/22/19 [Rx] Losartan [Cozaar] 50 mg PO DAILY #30 dose 10/22/19 [Rx] Ondansetron [Zofran ODT] 4 mg PO Q6H PRN #20 tab.dis 10/22/19 [Rx] Simvastatin 20 mg PO BEDTIME #30 dose 10/22/19 [Rx] Terazosin [Hytrin] 5 mg PO BID #60 cap 10/22/19 [Rx] Baclofen 10 mg PO QID 12/14/19 [History] LORazepam [Ativan] 0.5 mg PO 12,16 12/14/19 [History] hydroCHLOROthiazide [Hydrochlorothiazide] 12.5 mg PO DAILY 12/14/19 [History] Celecoxib 200 mg PO DAILY 02/11/20 [History] Cyclobenzaprine [Flexeril] 10 mg PO 06,,02/11/20 [History] LORazepam [Ativan] 1 mg PO ,02/11/20 [History] Sertraline [Zoloft] 100 mg PO BEDTIME 02/11/20 [History] traZODone HCl [Trazodone HCl] 150 mg PO BEDTIME 02/11/20 [History] HYDROmorphone [Dilaudid] 2 mg PO Q6H PRN 02/26/20 [History] fentaNYL [Duragesic] 75 mcg TRDERM Q72H #5 patch 04/21/20 [Rx] Acetaminophen [Tylenol] 650 mg PO Q6H PRN 06/17/20 [History] Lactose-Reduced Food/Fiber [Jevity 1.2 Nixon Liquid] 237 ml PEGTUBE TID PRN 06/17/20 [History] Magnesium Oxide 400 mg PO BID 06/17/20 [History] Sennosides/Docusate Sodium [Senna Plus 8.6-50 mg Softgel] 1 tab PO DAILY 06/17/20 [History] Sennosides/Docusate Sodium [Senna Plus 8.6-50 mg Softgel] 1 tab PO TID PRN 06/17/20 [History] Trolamine Salicylate/Aloe Vera [Aspercreme 10% Cream] 1 applic TOP Q4H PRN 06/17/20 [History] busPIRone [Buspar] 30 mg PO BID 06/17/20 [History] guaiFENesin [Mucinex] 600 mg PO 07,,06/17/20 [History] polyethylene glycoL 3350 [MiraLAX] 17 gm PO DAILY 06/17/20 [History] levoFLOXacin [Levaquin] 750 mg PO DAILY #7 tab 06/21/20 [Rx] predniSONE [Prednisone] 2.5 mg PO DAILY #7 tablet 06/21/20 [Rx] predniSONE [Prednisone] 5 mg PO DAILY #7 tablet 06/21/20 [Rx] predniSONE [Prednisone] 10 mg PO DAILY #7 tablet 06/21/20 [Rx] valACYclovir [Valtrex] 1,000 mg PO DAILY #7 tab 06/21/20 [Rx] Oxygen Therapy Mode: Room Air Patient Handouts: Sepsis, Self Care, Adult Forms: ED Department Discharge Referrals: iNk Hughes MD [Primary Care Provider] - 06/29/20 1:15 pm (check in at 1:00 p.m.) - Discharge Summary/Plan Comment DC Time >30 min.: Yes - General Info Date of Service: 06/21/20 - Review of Systems General: Reports: No Symptoms HEENT: Reports: No Symptoms Pulmonary: Reports: No Symptoms Cardiovascular: Reports: No Symptoms Gastrointestinal: Reports: Diarrhea Genitourinary: Reports: No Symptoms Musculoskeletal: Reports: No Symptoms Skin: Reports: No Symptoms Neurological: Reports: No Symptoms Psychiatric: Reports: No Symptoms - Patient Data Vitals - Most Recent: Last Vital Signs Temp 98.4 F 06/21/20 04:00 Pulse 63 06/21/20 03:00 Resp 14 06/21/20 04:13 BP 133/85 06/21/20 09:16 Pulse Ox 91 L 06/21/20 03:00 Weight - Most Recent: 154 lb 1.6 oz I&O - Last 24 hours: Intake & Output 06/20/20 06/21/20 06/21/20 22:59 06:59 14:59 Intake Total 1151 1437 Output Total 350 Balance 1151 1087 Lab Results - Last 24 hrs: Laboratory Results - last 24 hr 06/21/20 06/21/20 Range/Units 04:50 05:21 WBC 6.09 (4.23-9.07) K/mm3 RBC 4.61 L (4.63-6.08) M/mm3 Hgb 12.8 L (13.7-17.5) gm/dl Hct 38.8 L (40.1-51.0) % MCV 84.2 (79.0-92.2) fl MCH 27.8 (25.7-32.2) pg MCHC 33.0 (32.2-35.5) g/dl RDW Std Deviation 39.3 (35.1-43.9) fL Plt Count 200 (163-337) K/mm3 MPV 10.6 (9.4-12.3) fl Neut % (Auto) 80.7 H (34.0-67.9) % Lymph % (Auto) 13.0 L (21.8-53.1) % [place] % (Auto) 5.9 (5.3-12.2) % Eos % (Auto) 0 L (0.8-7.0) Baso % (Auto) 0.2 (0.1-1.2) % Neut # (Auto) 4.92 (1.78-5.38) K/mm3 Lymph # (Auto) 0.79 L (1.32-3.57) K/mm3 [place] # (Auto) 0.36 (0.30-0.82) K/mm3 Eos # (Auto) 0.00 L (0.04-0.54) K/mm3 Baso # (Auto) 0.01 (0.01-0.08) K/mm3 Manual Slide Review Not Reportable Sodium 141 (136-145) mEq/L Potassium 4.2 (3.5-5.1) mEq/L Chloride 104 (98-107) mEq/L Carbon Dioxide 29 (21-32) mEq/L Anion Gap 12.2 (5-15) BUN 17 (7-18) mg/dL Creatinine 0.7 (0.7-1.3) mg/dL Est Cr Clr Drug Dosing 108.18 mL/min Estimated GFR (MDRD) > 60 (>60) mL/min BUN/Creatinine Ratio 24.3 H (14-18) Glucose 140 H (80-115) mg/dL Calcium 8.1 L (8.5-10.1) mg/dL Total Bilirubin 0.4 (0.2-1.0) mg/dL AST 15 (15-37) U/L ALT 19 (16-63) U/L Alkaline Phosphatase 52 (46-116) U/L Total Protein 6.3 L (6.4-8.2) g/dl Albumin 2.7 L (3.4-5.0) g/dl Globulin 3.6 gm/dL Albumin/Globulin Ratio 0.8 L (1-2) TYREE Results - Last 24 hrs: Microbiology 06/17/20 16:50 Aerobic Blood Culture - Preliminary Blood - Venous - Lab Draw NO GROWTH AFTER 3 DAYS Anaerobic Blood Culture - Preliminary NO GROWTH AFTER 3 DAYS 06/17/20 17:05 Aerobic Blood Culture - Preliminary Blood - Venous NO GROWTH AFTER 3 DAYS Anaerobic Blood Culture - Preliminary NO GROWTH AFTER 3 DAYS Med Orders - Current: Current Medications Acetaminophen (Acetaminophen Soln 650 Mg/20.3 Ml Ud Cup) 650 mg PEGTUBE Q6H PRN PRN Reason: Pain (Mild 1-3)/fever Last Admin: 06/20/20 00:44 Dose: 650 mg Documented by: Aspirin (Aspirin 81 Mg Tab.Chew) 81 mg PEGTUBE BEDTIME [facility] Last Admin: 06/20/20 20:44 Dose: 81 mg Documented by: Atorvastatin Calcium (Atorvastatin 40 Mg Tab) 40 mg PEGTUBE BEDTIME [facility] Last Admin: 06/20/20 20:44 Dose: 40 mg Documented by: Baclofen (Baclofen 10 Mg Tab) 10 mg PEGTUBE QID [facility] Last Admin: 06/21/20 09:10 Dose: 10 mg Documented by: Buspirone HCl (Buspirone 15 Mg Tab) 30 mg PEGTUBE BID [facility] Last Admin: 06/21/20 09:12 Dose: 30 mg Documented by: Carbidopa/Levodopa (Carbidopa/Levodopa 25-100 Mg Tab) 1 tab PEGTUBE QID [facility] Last Admin: 06/21/20 09:12 Dose: 1 tab Documented by: Cyclobenzaprine HCl (Cyclobenzaprine 10 Mg Tab) 10 mg PEGTUBE TID [facility] Last Admin: 06/21/20 09:10 Dose: 10 mg Documented by: Enoxaparin Sodium (Enoxaparin 40 Mg/0.4 Ml Syringe) 40 mg SUBCUT BEDTIME [facility] Last Admin: 06/20/20 20:43 Dose: 40 mg Documented by: Fentanyl (Fentanyl 75 Mcg/Hr Transdermal Patch) 75 mcg TRDERM Q72H [facility] Last Admin: 06/18/20 20:40 Dose: 75 mcg Documented by: Gabapentin (Gabapentin 100 Mg Cap) 200 mg PEGTUBE TID [facility] Last Admin: 06/21/20 09:11 Dose: 200 mg Documented by: Guaifenesin (Guaifenesin 600 Mg Tab.Er) 600 mg PO TID [facility] Last Admin: 06/21/20 09:13 Dose: 600 mg Documented by: Hydrochlorothiazide (Hydrochlorothiazide 25 Mg Tab) 12.5 mg FTUBE DAILY [facility] Last Admin: 06/21/20 09:10 Dose: 12.5 mg Documented by: Hydromorphone HCl (Hydromorphone 2 Mg Tab) 2 mg FTUBE Q6H PRN PRN Reason: Pain Last Admin: 06/20/20 05:09 Dose: 2 mg Documented by: Promethazine HCl 12.5 mg/ (Sodium Chloride) 50.5 mls @ 100 mls/hr IV Q6H PRN PRN Reason: Nausea/Vomiting Piperacillin Sod/Tazobactam (Sod 4.5 gm/ Sodium Chloride) 100 mls @ 25 mls/hr IV Q8H [facility] Last Admin: 06/21/20 03:58 Dose: 25 mls/hr Documented by: Norepinephrine Bitartrate 4 mg (/ Dextrose/Water) 250 mls @ 7.5 mls/hr IV TITRATE [facility]; Protocol Last Titration: 06/18/20 14:00 Dose: 0 mcg/min, 0 mls/hr Documented by: Acyclovir 1,000 mg/ Sodium (Chloride) 120 mls @ 100 mls/hr IV Q8H [facility] Last Admin: 06/21/20 04:01 Dose: 100 mls/hr Documented by: Lorazepam (Lorazepam 0.5 Mg Tab) 0.5 mg FTUBE BID@1200,1600 [facility] Last Admin: 06/20/20 17:23 Dose: Not Given Documented by: Lorazepam (Lorazepam 2 Mg/Ml Sdv) 1 mg IVPUSH Q4H PRN PRN Reason: anxiety Last Admin: 06/20/20 13:18 Dose: 1 mg Documented by: Losartan Potassium (Losartan 50 Mg Tab) 50 mg FTUBE DAILY [facility] Last Admin: 06/21/20 09:16 Dose: 50 mg Documented by: Magnesium Oxide (Magnesium Oxide 400 Mg Tab) 400 mg FTUBE BID [facility] Last Admin: 06/21/20 09:12 Dose: 400 mg Documented by: Methylprednisolone Sodium Succinate (Methylprednisolone Sodium Succinate 40 Mg/1 Ml Sdv) 40 mg IVPUSH Q12H [facility] Last Admin: 06/21/20 00:48 Dose: 40 mg Documented by: Midodrine (Midodrine 5 Mg Tab) 5 mg PO TIDAC PRN PRN Reason: Hypotension Miscellaneous Information (Remove Fentanyl 75 Mcg Patch) 1 ea TRDERM Q72H [facility] Last Admin: 06/18/20 20:39 Dose: 1 ea Documented by: Pantoprazole Sodium (Pantoprazole 40 Mg Vial) 40 mg IV DAILY [facility] Last Admin: 06/21/20 09:10 Dose: 40 mg Documented by: Polyethylene Glycol (Polyethylene Glycol 3350 Powder 17 Gm Packet) 17 gm PEGTUBE DAILY [facility] Last Admin: 06/21/20 09:16 Dose: Not Given Documented by: Senna/Docusate Sodium (Docusate Sodium/Sennosides 50-8.6 Mg Tab) 1 tab FTUBE DAILY [facility] Last Admin: 06/21/20 09:13 Dose: Not Given Documented by: Sertraline HCl (Sertraline 50 Mg Tab) 100 mg FTUBE BEDTIME [facility] Last Admin: 06/20/20 20:44 Dose: 100 mg Documented by: Sodium Chloride (Sodium Chloride 0.9% 10 Ml Syringe) 10 ml FLUSH ASDIRECTED [facility] Last Admin: 06/17/20 18:23 Dose: 10 ml Documented by: Terazosin HCl (Terazosin 5 Mg Cap) 5 mg PEGTUBE BID [facility] Last Admin: 06/21/20 09:15 Dose: 5 mg Documented by: Trazodone HCl (Trazodone 50 Mg Tab) 150 mg FTUBE BEDTIME [facility] Last Admin: 06/20/20 20:45 Dose: Not Given Documented by: Trolamine Salicylate (Trolamine Salicylate/Aloe Vera 10% Crm 85 Gm Tube) 0 gm TOP Q4H PRN PRN Reason: Pain Last Admin: 06/18/20 21:14 Dose: 1 applic Documented by: Discontinued Medications Acetaminophen (Acetaminophen 325 Mg Tab) 650 mg PO Q6H PRN PRN Reason: Pain (Mild 1-3)/fever Last Admin: 06/17/20 22:18 Dose: 650 mg Documented by: Aspirin (Aspirin 81 Mg Tab.Ec) 81 mg PO BEDTIME [facility] Last Admin: 06/17/20 22:19 Dose: 81 mg Documented by: Atorvastatin Calcium (Atorvastatin 40 Mg Tab) 40 mg PO BEDTIME [facility] Last Admin: 06/17/20 22:18 Dose: 40 mg Documented by: Baclofen (Baclofen 10 Mg Tab) 10 mg PO QID [facility] Last Admin: 06/17/20 22:19 Dose: 10 mg Documented by: Buspirone HCl (Buspirone 15 Mg Tab) 30 mg PO BID [facility] Last Admin: 06/17/20 22:19 Dose: 30 mg Documented by: Carbidopa/Levodopa (Carbidopa/Levodopa 25-100 Mg Tab) 1 tab PO QID [facility] Last Admin: 06/17/20 22:19 Dose: 1 tab Documented by: Cyclobenzaprine HCl (Cyclobenzaprine 10 Mg Tab) 10 mg PO TID [facility] Last Admin: 06/17/20 22:17 Dose: 10 mg Documented by: Fentanyl (Fentanyl 75 Mcg/Hr Transdermal Patch) 75 mcg TRDERM Q72H [facility] Last Admin: 06/18/20 06:55 Dose: Not Given Documented by: Fentanyl (Fentanyl 75 Mcg/Hr Transdermal Patch) 75 mcg TRDERM Q72H [facility] Gabapentin (Gabapentin 100 Mg Cap) 200 mg PO TID [facility] Last Admin: 06/17/20 22:16 Dose: 200 mg Documented by: Hydrochlorothiazide (Hydrochlorothiazide 12.5 Mg Cap) 12.5 mg PO DAILY [facility] Hydromorphone HCl (Hydromorphone 2 Mg Tab) 2 mg PO Q6H PRN PRN Reason: Pain Ceftriaxone Sodium 2 gm/ (Sodium Chloride) 100 mls @ 200 mls/hr IV ONETIME ONE Stop: 06/17/20 16:59 Last Admin: 06/17/20 16:54 Dose: 200 mls/hr Documented by: Sodium Chloride (Normal Saline) 100 mls @ 60 mls/hr IV ASDIRECTED [facility] Last Admin: 06/17/20 18:24 Dose: 60 mls/hr Documented by: Azithromycin 500 mg/ Sodium (Chloride) 250 mls @ 250 mls/hr IV Q24H [facility] Last Admin: 06/18/20 20:34 Dose: 250 mls/hr Documented by: Piperacillin Sod/Tazobactam (Sod 4.5 gm/ Sodium Chloride) 100 mls @ 200 mls/hr IV ONETIME ONE Stop: 06/17/20 20:44 Last Admin: 06/17/20 22:10 Dose: 200 mls/hr Documented by: Sodium Chloride (Normal Saline) 1,000 mls @ 50 mls/hr IV ASDIRECTED [facility] Sodium Chloride (Normal Saline) 1,000 mls @ 65 mls/hr IV ASDIRECTED [facility] Last Admin: 06/17/20 22:05 Dose: 65 mls/hr Documented by: Sodium Chloride (Normal Saline) 500 mls @ 999 mls/hr IV ONETIME ONE Stop: 06/18/20 00:30 Last Admin: 06/18/20 02:21 Dose: Not Given Documented by: Sodium Chloride (Normal Saline) 1,000 mls @ 60 mls/hr IV ASDIRECTED [facility] Stop: 06/19/20 11:00 Last Admin: 06/18/20 18:15 Dose: 60 mls/hr Documented by: Iopamidol (Iopamidol 755 Mg/Ml 100 Ml Bottle) 100 ml IVPUSH ONETIME ONE Stop: 06/17/20 18:22 Last Admin: 06/17/20 18:22 Dose: 100 ml Documented by: Lorazepam (Lorazepam 1 Mg Tab) 1 mg PO BID@1200,1600 [facility] Last Admin: 06/17/20 22:35 Dose: Not Given Documented by: Lorazepam (Lorazepam 1 Mg Tab) 1 mg FTUBE BID@1200,1600 [facility] Lorazepam (Lorazepam 1 Mg Tab) 1 mg FTUBE BID@1200,1600 [facility] Lorazepam (Lorazepam 1 Mg Tab) 0.5 mg FTUBE BID@1200,1600 [facility] Last Admin: 06/18/20 15:43 Dose: 0.5 mg Documented by: Losartan Potassium (Losartan 50 Mg Tab) 50 mg PO DAILY [facility] Last Admin: 06/17/20 23:01 Dose: Not Given Documented by: Magnesium Oxide (Magnesium Oxide 400 Mg Tab) 400 mg PO BID [facility] Last Admin: 06/17/20 22:18 Dose: 400 mg Documented by: Miscellaneous Information (Remove Fentanyl 75 Mcg Patch) 1 ea TRDERM Q72H [facility] Non-Formulary Medication (Lactose-Reduced Food/Fiber [Jevity 1.2 Nixon Liquid]) 237 ml PEGTUBE TID PRN PRN Reason: Other Polyethylene Glycol (Polyethylene Glycol 3350 Powder 17 Gm Packet) 17 gm PO DAILY [facility] Last Admin: 06/17/20 23:13 Dose: 17 gm Documented by: Senna/Docusate Sodium (Docusate Sodium/Sennosides 50-8.6 Mg Tab) 1 tab PO DAILY [facility] Sertraline HCl (Sertraline 50 Mg Tab) 100 mg PO BEDTIME [facility] Last Admin: 06/17/20 22:18 Dose: 100 mg Documented by: Sodium Chloride (Sodium Chloride 0.9% 10 Ml Syringe) 10 ml FLUSH ASDIRECTED PRN PRN Reason: Keep Vein Open Last Admin: 06/17/20 16:54 Dose: 10 ml Documented by: Terazosin HCl (Terazosin 5 Mg Cap) 5 mg PO BID [facility] Last Admin: 06/17/20 23:12 Dose: 5 mg Documented by: Trazodone HCl (Trazodone 50 Mg Tab) 150 mg PO BEDTIME [facility] Last Admin: 06/17/20 22:18 Dose: 150 mg Documented by: Valacyclovir HCl (Valacyclovir 1,000 Mg Tab) 1,000 mg PO ONETIME ONE Stop: 06/17/20 16:29 Last Admin: 06/17/20 17:10 Dose: 1,000 mg Documented by: Valacyclovir HCl (Valacyclovir 1,000 Mg Tab) 1,000 mg PO TID [facility] Last Admin: 06/17/20 22:19 Dose: 1,000 mg Documented by: Valacyclovir HCl (Valacyclovir 1,000 Mg Tab) 1,000 mg .XX TID [facility] Last Admin: 06/18/20 08:07 Dose: 1,000 mg Documented by: - Exam General: Reports: Alert, Oriented HEENT: Reports: Pupils Equal, EOMI, Mucous Membr. Moist/[place]. Denies: Scleral Icterus Neck: Reports: Trachea Midline Lungs: Reports: Rhonchi (LLL ) Cardiovascular: Reports: Regular Rate, Regular Rhythm GI/Abdominal Exam: Normal Bowel Sounds, Soft, Non-Tender Extremities: Limited Range of Motion, Other (flexion contractures, atrophy ) Skin: Reports: Warm, Dry, Intact Neurological: Reports: No New Focal Deficit Psy/Mental Status: Reports: Alert, Normal Affect
[2020-06-21] MEDS: HYDROmorphone 2 MG Tab FTUBE PRN (09:38)
[2020-06-21] MEDS: fentaNYL 75 MCG/HR Transdermal Patch TRDERM SCH (09:40)
[2020-06-21] MEDS: Acetaminophen Soln 650 MG/20.3 ML UD Cup PEGTUBE PRN (12:38)
[2020-06-21] MEDS: LORazepam 0.5 MG Tab FTUBE SCH (12:39)
== END 2020-06-21 14:32 | DRG 193 ==
LOC: JD.ED 16:05 → JD.MS 19:50 → JD.ICU 06-18 00:40
PROVIDERS: ADMIT Internal Medicine; ATTEND Internal Medicine
PROC: 3E033XZ Introduction of Vasopressor into Peripheral Vein, Percutaneous Approach (ICD-10-PCS; principal; 2020-06-18)
DX: J18.8 Other pneumonia, unspecified organism (principal); J96.01 Acute respiratory failure with hypoxia; R09.02 Hypoxemia; G23.1 Progressive supranuclear ophthalmoplegia [Steele-Richardson-Olszewski]; B02.8 Zoster with other complications; R91.8 Other nonspecific abnormal finding of lung field; H54.7 Unspecified visual loss; E78.00 Pure hypercholesterolemia, unspecified; G47.30 Sleep apnea, unspecified; K59.09 Other constipation; K21.9 Gastro-esophageal reflux disease without esophagitis; K44.9 Diaphragmatic hernia without obstruction or gangrene; R33.8 Other retention of urine; R33.9 Retention of urine, unspecified; N40.1 Benign prostatic hyperplasia with lower urinary tract symptoms; Z87.01 Personal history of pneumonia (recurrent); M19.90 Unspecified osteoarthritis, unspecified site; M54.9 Dorsalgia, unspecified; G89.29 Other chronic pain; G20 Parkinson's disease; Z20.822 Contact with and (suspected) exposure to COVID-19; G47.00 Insomnia, unspecified; M62.838 Other muscle spasm; F41.9 Anxiety disorder, unspecified; F32.9 Major depressive disorder, single episode, unspecified; I10 Essential (primary) hypertension; R13.10 Dysphagia, unspecified; D69.6 Thrombocytopenia, unspecified; D49.1 Neoplasm of unspecified behavior of respiratory system; R59.0 Localized enlarged lymph nodes; H53.8 Other visual disturbances; Z79.899 Other long term (current) drug therapy; Z87.440 Personal history of urinary (tract) infections; Z86.14 Personal history of Methicillin resistant Staphylococcus aureus infection; Z93.1 Gastrostomy status; Z93.6 Other artificial openings of urinary tract status
CPT/HCPCS: 36415; 51702; 71045; 71045-26; 71275; 71275-26; 80053; 81001; 83605; 83735; 83880; 84145; 84484; 85025; 85379; 85610; 85730; 86140; 87040; 93005; 93010; 93970; 93970-26; 94667; 94668; 94762; 96365; 97162-GP; 97167-GO; 97530-GO; 97530-GP; 97535-GO; 99223; 99233; 99239; 99285; 99285-25; A9270-GY; C9113; J0133; J0456; J0696; J1650; J2060; J2543; J2920; J7030; J7050; J7060; Q9967; U0002

== ENCOUNTER 2020-06-24 08:00 | Emergency (ER) | payer MEDICARE ==
[2020-06-24] MEDS ORDERED: Sodium Chloride 0.9% 10 ML Syringe FLUSH PRN (08:25)
[2020-06-24] MEDS ORDERED: Ketorolac 30 MG/ML SDV IVPUSH SCH (08:30)
--- NOTE | 2020-06-24 08:36 | EDM.PDOC ---
ED HPI GENERAL MEDICAL PROBLEM - General Chief Complaint: Upper Extremity Injury/Pain Stated Complaint: [facility] Time Seen by Provider: 06/24/20 08:11 Source of Information: Reports: Patient, EMS, Care Home Records, RN Notes Reviewed - History of Present Illness INITIAL COMMENTS - FREE TEXT/NARRATIVE: 64 yr old male found on floor of his room at [facility]. He has hx of advanced Parkinson's. He had apparantly tried to get up or transfer without assistance. He arrives with headache, neck and shoulder pain with the neck and shoulder the primary concern. No chest pain on arrival or difficulty breathing. No major back discomfort. Left Shoulder Pain Score (Numeric/FACES): 8 - Related Data Allergies Allergy/AdvReac Type Severity Reaction Status Date / Time No Known Allergies Allergy Verified 06/24/20 08:09 Home Meds: Home Meds Carbidopa/Levodopa [Carbidopa-Levodopa 25-100] 1 tab PO QID #120 tablet 10/22/19 [Rx] Gabapentin [Neurontin] 200 mg PO TID #120 dose 10/22/19 [Rx] Losartan [Cozaar] 50 mg PO DAILY #30 dose 10/22/19 [Rx] Ondansetron [Zofran ODT] 4 mg PO Q6H PRN #20 tab.dis 10/22/19 [Rx] Simvastatin 20 mg PO BEDTIME #30 dose 10/22/19 [Rx] Terazosin [Hytrin] 5 mg PO BID #60 cap 10/22/19 [Rx] Baclofen 10 mg PO QID 12/14/19 [History] LORazepam [Ativan] 0.5 mg PO 12,16 12/14/19 [History] hydroCHLOROthiazide [Hydrochlorothiazide] 12.5 mg PO DAILY 12/14/19 [History] Celecoxib 200 mg PO DAILY 02/11/20 [History] Cyclobenzaprine [Flexeril] 10 mg PO 06,12,20 02/11/20 [History] LORazepam [Ativan] 1 mg PO ,20 02/11/20 [History] Sertraline [Zoloft] 100 mg PO BEDTIME 02/11/20 [History] traZODone HCl [Trazodone HCl] 150 mg PO BEDTIME 02/11/20 [History] HYDROmorphone [Dilaudid] 2 mg PO Q6H PRN 02/26/20 [History] fentaNYL [Duragesic] 75 mcg TRDERM Q72H #5 patch 04/21/20 [Rx] Acetaminophen [Tylenol] 650 mg PO Q6H PRN 06/17/20 [History] Lactose-Reduced Food/Fiber [Jevity 1.2 Nixon Liquid] 237 ml PEGTUBE TID PRN 06/17/20 [History] Magnesium Oxide 400 mg PO BID 06/17/20 [History] Sennosides/Docusate Sodium [Senna Plus 8.6-50 mg Softgel] 1 tab PO DAILY 06/17/20 [History] Sennosides/Docusate Sodium [Senna Plus 8.6-50 mg Softgel] 1 tab PO TID PRN 06/17/20 [History] Trolamine Salicylate/Aloe Vera [Aspercreme 10% Cream] 1 applic TOP Q4H PRN 06/17/20 [History] busPIRone [Buspar] 30 mg PO BID 06/17/20 [History] guaiFENesin [Mucinex] 600 mg PO 07,12,20 06/17/20 [History] polyethylene glycoL 3350 [MiraLAX] 17 gm PO DAILY 06/17/20 [History] levoFLOXacin [Levaquin] 750 mg PO DAILY #7 tab 06/21/20 [Rx] predniSONE [Prednisone] 2.5 mg PO DAILY #7 tablet 06/21/20 [Rx] predniSONE [Prednisone] 5 mg PO DAILY #7 tablet 06/21/20 [Rx] predniSONE [Prednisone] 10 mg PO DAILY #7 tablet 06/21/20 [Rx] valACYclovir [Valtrex] 1,000 mg PO DAILY #7 tab 06/21/20 [Rx] Past Medical History HEENT History: Reports: Impaired Vision Other HEENT History: Wears glasses Cardiovascular History: Reports: High Cholesterol, Hypertension Respiratory History: Reports: Intubation, Previous, Pneumonia, Recurrent, Sleep Apnea Other Respiratory History: Pleural effusions. 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 Psychiatric History: Reports: Anxiety, Depression Other Psychiatric History: insomnia Endocrine/Metabolic History: Reports: None Hematologic History: Reports: None Immunologic History: Reports: None Oncologic (Cancer) History: Reports: None Dermatologic History: Reports: None - Infectious Disease History Infectious Disease History: Reports: MRSA, Shingles - Past Surgical History Head Surgeries/Procedures: Reports: None HEENT Surgical History: Reports: None Cardiovascular Surgical History: Reports: None Respiratory Surgical History: Reports: None GI Surgical History: Reports: Other (See Below) Other GI Surgeries/Procedures: PEG tube placement June 13 2020 Male Surgical History: Reports: Suprapubic Catheter Placement Endocrine Surgical History: Reports: None Neurological Surgical History: Reports: None Musculoskeletal Surgical History: Reports: None Oncologic Surgical History: Reports: None Dermatological Surgical History: Reports: None - History Comment History Comment: Patient has chronic severe generalized pain. He is currently on Dilaudid 2 mg 3 times daily and fentanyl patch. 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 Social & Family History - Family History Family Medical History: No Pertinent Family History - Tobacco Use Tobacco Use Status *Q: Former Tobacco User Years of Tobacco use: 30 Packs/Tins Daily: 1 Used Tobacco, but Quit: Yes Month/Year Tobacco Last Used: 02/1989 - Caffeine Use Caffeine Use: Reports: None - Recreational Drug Use Recreational Drug Use: No - Living Situation & Occupation Living situation: Reports: Single, Alone, Extended Care Facility ([facility] Occupation: Disabled Review of Systems - Review of Systems Review Of Systems: See Below Constitutional: Reports: Weakness (chronic) Ears: Reports: No Symptoms Nose: Reports: No Symptoms Respiratory: Denies: Shortness of Breath Cardiovascular: Denies: Chest Pain GI/Abdominal: Denies: Abdominal Pain Musculoskeletal: Reports: Neck Pain, Shoulder Pain Skin: Denies: Bruising Neurological: Reports: Headache ED EXAM, GENERAL - Physical Exam Exam: See Below General Appearance: Alert, Mild Distress Eye Exam: Bilateral Eye: PERRL Ears: Normal External Exam Nose: Normal Inspection Throat/Mouth: Normal Inspection Head: Atraumatic. No: Facial Swelling Respiratory/Chest: No Respiratory Distress, Lungs Clear, Normal Breath Sounds, Chest Non-Tender Cardiovascular: Regular Rate, Rhythm GI/Abdominal: Non-Tender Extremities: Other (rigidity and spasm of upper and lower extrem. Tender L shoulder, No visible swelling, bruising or deformity, tender post neck, , mild tenderness L lat hip, no visible bruising, mild pain with motion) Neurological: Alert Skin Exam: Warm, Dry, Normal Color Course - Vital Signs Last Recorded V/S: Last Vital Signs Temp 97.0 F 06/24/20 08:06 Pulse 73 06/24/20 08:06 Resp 20 06/24/20 08:06 BP 113/68 06/24/20 08:06 Pulse Ox 94 L 06/24/20 08:06 - Orders/Labs/Meds Orders: Active Orders 24 hr Category Date Time Status Peripheral IV Care [RC] . DIRECTED Care 06/24/20 08:26 Active Cervical Spine wo Cont [CT] Stat Exams 06/24/20 08:27 Taken Head wo Cont [CT] Stat Exams 06/24/20 08:26 Taken Hip Min 2V or 3V w Pelvis Lt [CR] Stat Exams 06/24/20 08:28 Taken Shoulder Comp Lt [CR] Stat Exams 06/24/20 08:27 Taken Ketorolac [Toradol] Med 06/24/20 08:30 Active 10 mg IVPUSH ONETIME Sodium Chloride 0.9% [Saline Flush] Med 06/24/20 08:25 Active 10 ml FLUSH ASDIRECTED PRN Peripheral IV Insertion Adult [OM.PC] Stat Oth 06/24/20 08:25 Ordered Medication Orders Ketorolac Tromethamine (Ketorolac 30 Mg/Ml Sdv) 10 mg IVPUSH ONETIME [facility] Last Admin: 06/24/20 08:33 Dose: 10 mg Documented by: GUTIERREZ Sodium Chloride (Sodium Chloride 0.9% 10 Ml Syringe) 10 ml FLUSH ASDIRECTED PRN PRN Reason: Keep Vein Open Last Admin: 06/24/20 08:34 Dose: 10 ml Documented by: GUTIERREZ Meds: Medications Generic Name Dose Route Start Last Admin Trade Name Freq PRN Reason Stop Dose Admin Ketorolac Tromethamine 10 mg 06/24/20 08:30 06/24/20 08:33 Ketorolac 30 Mg/Ml Sdv IVPUSH 10 mg ONETIME JASPER Administration Sodium Chloride 10 ml 06/24/20 08:25 06/24/20 08:34 Sodium Chloride 0.9% 10 Ml Syringe FLUSH 10 ml ASDIRECTED PRN Administration Keep Vein Open Discontinued Medications Generic Name Dose Route Start Last Admin Trade Name Freq PRN Reason Stop Dose Admin Hydromorphone HCl 0.25 mg 06/24/20 10:32 06/24/20 10:46 Hydromorphone 0.5 Mg/0.5 Ml Syringe IVPUSH 06/24/20 10:33 0.25 mg ONETIME ONE Administration - Re-Assessments/Exams Free Text/Narrative Re-Assessment/Exam: 06/24/20 11:[address] neg for fx, see Radiologist reports for details. Discharge instr. as documented. Departure - Departure Time of Disposition: 11:03 Disposition: Home, Self-Care 01 Condition: Fair Clinical Impression: Fall Qualifiers: Encounter type: initial encounter Qualified Code(s): W19.XXXA - Unspecified fall, initial encounter Shoulder contusion Qualifiers: Encounter type: initial encounter Laterality: left Qualified Code(s): S40.012A - Contusion of left shoulder, initial encounter Contusion of head Qualifiers: Encounter type: initial encounter Contusion of head detail: scalp Qualified Code(s): S00.03XA - Contusion of scalp, initial encounter Strain of neck Qualifiers: Encounter type: initial encounter Qualified Code(s): S16.1XXA - Strain of muscle, fascia and tendon at neck level, initial encounter - Discharge Information Instructions: Fall Prevention in the Home, Adult, [id number] Referrals: Nik Hughes MD [Primary Care Provider] - Forms: ED Department Discharge Additional Instructions: Rest, up with assistance only. Tylenol q 6 to 8 hr as needed for pain. Call or see provider as needed. Sepsis Event Note (ED) - Evaluation Sepsis Screening Result: No Definite Risk - Focused Exam Vital Signs: Vital Signs Temp Pulse Resp BP Pulse Ox 06/24/20 08:06 97.0 F 73 20 113/68 94 L - My Orders Last 24 Hours: My Active Orders 06/24/20 08:25 Sodium Chloride 0.9% [Saline Flush] 10 ml FLUSH ASDIRECTED PRN Peripheral IV Insertion Adult [OM.PC] Stat 05/08/21 08:26 Peripheral IV Care [RC] . DIRECTED Head wo Cont [CT] Stat 06/24/20 08:27 Cervical Spine wo Cont [CT] Stat Shoulder Comp Lt [CR] Stat 06/24/20 08:28 Hip Min 2V or 3V w Pelvis Lt [CR] Stat 06/24/20 08:30 Ketorolac [Toradol] 10 mg IVPUSH ONETIME - Assessment/Plan Last 24 Hours: My Active Orders 06/24/20 08:25 Sodium Chloride 0.9% [Saline Flush] 10 ml FLUSH ASDIRECTED PRN Peripheral IV Insertion Adult [OM.PC] Stat 06/24/20 08:26 Peripheral IV Care [RC] . DIRECTED Head wo Cont [CT] Stat 06/24/20 08:27 Cervical Spine wo Cont [CT] Stat Shoulder Comp Lt [CR] Stat 06/24/20 08:28 Hip Min 2V or 3V w Pelvis Lt [CR] Stat 06/24/20 08:30 Ketorolac [Toradol] 10 mg IVPUSH ONETIME
[2020-06-24] MEDS ORDERED: HYDROmorphone 0.5 MG/0.5 ML Syringe IVPUSH ONE (10:32)
--- NOTE | 2020-06-25 09:57 | CR ---
Left shoulder: 3 views of left shoulder were obtained. Comparison: No previous shoulder study is available. Joint space narrowing is noted within the acromioclavicular joint with slight inferior projection of the distal clavicle. Glenohumeral joint shows mild degenerative change. No acute fracture or other abnormality is appreciated. Impression: 1. Mild degenerative change. 2. Nothing acute is seen on left shoulder study. Diagnostic code #2
--- NOTE | 2020-06-25 09:57 | CT ---
Head CT Technique: Head CT Technique: Multiple axial sections through the brain were obtained. Reconstructed coronal and sagittal images were obtained. Intravenous contrast was not utilized. Comparison: Prior head CT study of 04/18/20. Findings: Ventricles along with basal cisterns and sulci over the convexities are mildly prominent. No abnormal parenchymal densities are seen. No evidence of intracranial hemorrhage. No midline shift or mass-effect is seen. Bone window settings were reviewed which show no acute osseous finding. Visualized mastoid and paranasal sinuses show nothing acute. Impression: 1. Generalized atrophy. 2. Nothing acute is definitely appreciated on noncontrast head CT. Diagnostic code #2 I agree with preliminary report from [facility] finalized on 06/24/20, 10:55 AM CDT, code 1
--- NOTE | 2020-06-25 09:57 | CR ---
Pelvis and left hip: AP view of the pelvis was obtained as well as 2 views of the left hip. Comparison: No prior pelvis or hip study is available. Mild joint space narrowing is seen superiorly within both hips. Degenerative change is partially seen within the lower lumbar spine. Surgical clips are seen within the prostate gland. Mild vascular calcification is seen. No acute fracture or dislocation is seen. Impression: 1. Degenerative change as noted above. Surgical clips within the prostate gland. 2. Nothing acute is appreciated. Diagnostic code #2
--- NOTE | 2020-06-25 10:00 | CT ---
CT cervical spine Technique: Multiple axial sections were obtained through the cervical spine and upper thoracic spine. Reconstructed coronal and sagittal images were obtained. Comparison: No prior cervical spine imaging is available. Findings: Previous surgery is noted at C3 and C4. Diffuse disc space narrowing is seen throughout the cervical and upper thoracic spine. Scattered anterior osteophytes are noted within the upper thoracic and cervical spine. Scattered areas of neural foraminal narrowing are seen. Scattered degenerative change is noted within the apophyseal joints. No acute fracture or subluxation is seen. Visualized portions of the lungs show small left-sided pleural effusion and parenchymal density most likely due to atelectasis. Impression: 1. Previous cervical spine surgery. 2. Diffuse degenerative change. 3. Minimal left-sided pleural effusion and increased density of the left lung base most likely due to atelectasis. 4. Nothing acute is appreciated on CT study of the cervical spine. Diagnostic code #3 I agree with preliminary report from [facility] finalized on 06/24/20, 11:48 AM CDT
== END 2020-06-24 11:57 | disposition home or self-care (01) ==
LOC: JD.ED 08:00
DX: S16.1XXA Strain of muscle, fascia and tendon at neck level, initial encounter (principal); S40.012A Contusion of left shoulder, initial encounter; S00.03XA Contusion of scalp, initial encounter; G20 Parkinson's disease; E78.00 Pure hypercholesterolemia, unspecified; I10 Essential (primary) hypertension; Z87.891 Personal history of nicotine dependence; Z79.899 Other long term (current) drug therapy; W19.XXXA Unspecified fall, initial encounter
CPT/HCPCS: 70450; 72125; 73030; 73502; 96374; 96375; 99285; J1170; J1885; 99283

== ENCOUNTER 2020-07-29 08:17 | Inpatient (IN) | payer BC, MEDICARE ==
[2020-07-29] MEDS ORDERED: Piperacillin/Tazobactam 4.5 GM in Sodium Chloride 0.9% 100 ML IV ONE (08:37)
[2020-07-29] MEDS ORDERED: cefTRIAXone 2 GM in Sodium Chloride 0.9% 100 ML IV ONE (08:37)
[2020-07-29] MEDS ORDERED: Sodium Chloride 0.9% 1,000 ML IV ONE (08:37)
[2020-07-29] MEDS ORDERED: Sodium Chloride 0.9% 10 ML Syringe FLUSH PRN (08:37)
[2020-07-29] MEDS ORDERED: cefTRIAXone 2 GM Vial ONE (09:10)
[2020-07-29] MEDS ORDERED: cefTRIAXone 2 GM in Sodium Chloride 0.9% 100 ML IV SCH (10:45)
[2020-07-29] MEDS ORDERED: Ondansetron 4 MG/2 ML SDV IVPUSH ONE (10:58)
--- NOTE | 2020-07-29 11:30 | EDM.PDOC ---
ED HPI GENERAL MEDICAL PROBLEM - General Chief Complaint: Respiratory Problem Stated Complaint: SOB/LOW O2/FEVER/WEAK Time Seen by Provider: 07/29/20 08:30 Source of Information: Reports: Patient, Long-Term Records History Limitations: Reports: No Limitations - History of Present Illness INITIAL COMMENTS - FREE TEXT/NARRATIVE: The patient presents from [facility] with low oxygen saturations, cough, and fever. This has been going on for a few days. The patient has advanced Parkinson's disease. That is why he is in the [facility]. He has a history of recurrent pneumonia. He is DNR/DNI. He has no chest pain, abdominal pain, or vomiting. Onset: Gradual Duration: Day(s): Severity: Moderate Improves with: Reports: None Worsens with: Reports: None Associated Symptoms: Reports: Cough, Fever/Chills, Shortness of Breath. Denies: Chest Pain, Headaches, Nausea/Vomiting - Related Data Allergies Allergy/AdvReac Type Severity Reaction Status Date / Time No Known Allergies Allergy Verified 06/24/20 08:09 Home Meds: Home Meds Carbidopa/Levodopa [Carbidopa-Levodopa 25-100] 1 tab PO QID #120 tablet 10/22/19 [Rx] Gabapentin [Neurontin] 200 mg PO TID #120 dose 10/22/19 [Rx] Losartan [Cozaar] 50 mg PO DAILY #30 dose 10/22/19 [Rx] Ondansetron [Zofran ODT] 4 mg PO Q6H PRN #20 tab.dis 10/22/19 [Rx] Simvastatin 20 mg PO BEDTIME #30 dose 10/22/19 [Rx] Terazosin [Hytrin] 5 mg PO BID #60 cap 10/22/19 [Rx] Baclofen 10 mg PO QID 12/14/19 [History] LORazepam [Ativan] 0.5 mg PO 12,16 12/14/19 [History] hydroCHLOROthiazide [Hydrochlorothiazide] 12.5 mg PO DAILY 12/14/19 [History] Celecoxib 200 mg PO DAILY 02/11/20 [History] Cyclobenzaprine [Flexeril] 10 mg PO 06,12,20 02/11/20 [History] LORazepam [Ativan] 1 mg PO 07,20 02/11/20 [History] Sertraline [Zoloft] 100 mg PO BEDTIME 12/25/20 [History] traZODone HCl [Trazodone HCl] 150 mg PO BEDTIME 02/11/20 [History] HYDROmorphone [Dilaudid] 2 mg PO Q6H PRN 02/26/20 [History] fentaNYL [Duragesic] 75 mcg TRDERM Q72H #5 patch 04/21/20 [Rx] Acetaminophen [Tylenol] 650 mg PO Q6H PRN 06/17/20 [History] Lactose-Reduced Food/Fiber [Jevity 1.2 Nixon Liquid] 237 ml PEGTUBE TID PRN 06/17/20 [History] Magnesium Oxide 400 mg PO BID 06/17/20 [History] Sennosides/Docusate Sodium [Senna Plus 8.6-50 mg Softgel] 1 tab PO DAILY 06/17/20 [History] Sennosides/Docusate Sodium [Senna Plus 8.6-50 mg Softgel] 1 tab PO TID PRN 06/17/20 [History] Trolamine Salicylate/Aloe Vera [Aspercreme 10% Cream] 1 applic TOP Q4H PRN 06/17/20 [History] busPIRone [Buspar] 30 mg PO BID 06/17/20 [History] guaiFENesin [Mucinex] 600 mg PO 07,12,20 06/17/20 [History] polyethylene glycoL 3350 [MiraLAX] 17 gm PO DAILY 06/17/20 [History] levoFLOXacin [Levaquin] 750 mg PO DAILY #7 tab 06/21/20 [Rx] predniSONE [Prednisone] 2.5 mg PO DAILY #7 tablet 06/21/20 [Rx] predniSONE [Prednisone] 5 mg PO DAILY #7 tablet 06/21/20 [Rx] predniSONE [Prednisone] 10 mg PO DAILY #7 tablet 06/21/20 [Rx] valACYclovir [Valtrex] 1,000 mg PO DAILY #7 tab 06/21/20 [Rx] Past Medical History HEENT History: Reports: Impaired Vision Other HEENT History: Wears glasses Cardiovascular History: Reports: High Cholesterol, Hypertension Respiratory History: Reports: Intubation, Previous, Pneumonia, Recurrent, Sleep Apnea Other Respiratory History: Pleural effusions. 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 Psychiatric History: Reports: Anxiety, Depression Other Psychiatric History: insomnia Endocrine/Metabolic History: Reports: None Hematologic History: Reports: None Immunologic History: Reports: None Oncologic (Cancer) History: Reports: None Dermatologic History: Reports: None - Infectious Disease History Infectious Disease History: Reports: MRSA, Shingles - Past Surgical History Head Surgeries/Procedures: Reports: None HEENT Surgical History: Reports: None Cardiovascular Surgical History: Reports: None Respiratory Surgical History: Reports: None GI Surgical History: Reports: Other (See Below) Other GI Surgeries/Procedures: PEG tube placement June 13 2020 Male Surgical History: Reports: Suprapubic Catheter Placement Endocrine Surgical History: Reports: None Neurological Surgical History: Reports: None Musculoskeletal Surgical History: Reports: None Oncologic Surgical History: Reports: None Dermatological Surgical History: Reports: None - History Comment History Comment: Patient has chronic severe generalized pain. He is currently on Dilaudid 2 mg 3 times daily and fentanyl patch. 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 Social & Family History - Family History Family Medical History: No Pertinent Family History - Tobacco Use Tobacco Use Status *Q: Never Tobacco User - Caffeine Use Caffeine Use: Reports: None - Recreational Drug Use Recreational Drug Use: No - Living Situation & Occupation Living situation: Reports: Single, Alone, Extended Care Facility ([facility] Occupation: Disabled ED ROS GENERAL - Review of Systems Review Of Systems: See Below Constitutional: Reports: Fever, Chills HEENT: Reports: No Symptoms Respiratory: Reports: Shortness of Breath, Cough Cardiovascular: Reports: No Symptoms Endocrine: Reports: No Symptoms GI/Abdominal: Reports: No Symptoms : Reports: No Symptoms Musculoskeletal: Reports: No Symptoms Skin: Reports: No Symptoms ED EXAM, GENERAL - Physical Exam Exam: See Below Exam Limited By: No Limitations General Appearance: Alert, Mild Distress Ears: Normal External Exam Nose: Normal Inspection Head: Atraumatic, Normocephalic Neck: Normal Inspection Respiratory/Chest: No Respiratory Distress, Decreased Breath Sounds, Rhonchi Cardiovascular: Regular Rate, Rhythm, No Edema, No Murmur GI/Abdominal: Soft, Non-Tender, No Organomegaly, No Mass, Other (G-tube in) Back Exam: Normal Inspection Extremities: Normal Inspection Course - Vital Signs Last Recorded V/S: Last Vital Signs Temp 97.8 F 07/29/20 08:38 Pulse 87 07/29/20 08:38 Resp 22 H 07/29/20 08:38 BP 95/61 07/29/20 08:38 Pulse Ox 79 L 07/29/20 08:38 - Orders/Labs/Meds Orders: Active Orders 24 hr Category Date Time Status BIPAP Adult [RT BiPAP/CPAP] [RC] ASDIRECTED Care 07/29/20 08:41 Active Blood Pressure Mgt: Sepsis [RC] Q15MX2 Care 07/29/20 08:37 Active Insert Morris Catheter [Insert Urinary Catheter] [OM.PC] Care 07/29/20 12:00 Ordered Q24H Urinary Catheter Assessment [RC] ASDIRECTED Care 07/29/20 11:54 Active Chest 1V Frontal [CR] Stat Exams 07/29/20 08:37 Taken CORONAVIRUS COVID-19 CAMILLA [MOLEC] Stat Lab 07/29/20 11:53 Ordered CULTURE BLOOD [BC] Stat Lab 07/29/20 09:03 Received CULTURE BLOOD [BC] Stat Lab 07/29/20 09:10 Received UA W/TYREE RFLX IF INDICATED [URIN] Stat Lab 07/29/20 11:53 Ordered Ondansetron [Zofran] Med 07/29/20 10:58 Once 4 mg IVPUSH ONETIME ONE Sodium Chloride 0.9% [Normal Saline] 1,000 ml Med 07/29/20 08:37 Active IV BOLUS Sodium Chloride 0.9% [Saline Flush] Med 07/29/20 08:37 Active 10 ml FLUSH ASDIRECTED PRN cefTRIAXone [Rocephin] 2 gm Med 07/29/20 10:45 Active Sodium Chloride 0.9% [Normal Saline] 100 ml IV Q24H Blood Culture x2 Reflex Set [OM.PC] Stat Oth 07/29/20 08:37 Ordered Saline Lock Insert [OM.PC] Stat Oth 07/29/20 08:37 Ordered Medication Orders Sodium Chloride (Normal Saline) 1,000 mls @ 125 mls/hr IV BOLUS ONE; Protocol Stop: 07/29/20 16:36 Last Admin: 07/29/20 09:26 Dose: 125 mls/hr Documented by: KALEIGH Ceftriaxone Sodium 2 gm/ (Sodium Chloride) 100 mls @ 200 mls/hr IV Q24H JASPER Last Admin: 07/29/20 11:15 Dose: 200 mls/hr Documented by: ROBIN Ondansetron HCl (Ondansetron 4 Mg/2 Ml Sdv) 4 mg IVPUSH ONETIME ONE Stop: 07/29/20 10:59 Last Admin: 07/29/20 11:17 Dose: 4 mg Documented by: ROBIN Sodium Chloride (Sodium Chloride 0.9% 10 Ml Syringe) 10 ml FLUSH ASDIRECTED PRN PRN Reason: Keep Vein Open Labs: Laboratory Tests 07/29/20 07/29/20 07/29/20 Range/Units 09:03 09:03 09:03 WBC 13.38 H (4.23-9.07) K/mm3 RBC 4.10 L (4.63-6.08) M/mm3 Hgb 12.1 L (13.7-17.5) gm/dl Hct 37.6 L (40.1-51.0) % MCV 91.7 D (79.0-92.2) fl MCH 29.5 (25.7-32.2) pg MCHC 32.2 (32.2-35.5) g/dl RDW Std Deviation 49.3 H (35.1-43.9) fL Plt Count 153 L (163-337) K/mm3 MPV 11.7 (9.4-12.3) fl Neutrophils % (Manual) 66 H (40-60) % Band Neutrophils % 16 H (0-10) % Lymphocytes % (Manual) 9 L (20-40) % Atypical Lymphs % 0 % Monocytes % (Manual) 9 (2-10) % Eosinophils % (Manual) 0 L (0.8-7.0) % Basophils % (Manual) 0 L (0.2-1.2) Toxic Granulation 1+ slight Platelet Estimate Adequate Plt Morphology Comment Normal RBC Morph Comment Normal PT 12.1 H (9.7-12.0) SECONDS INR 1.13 Sodium 137 (136-145) mEq/L Potassium 4.1 (3.5-5.1) mEq/L Chloride 100 (98-107) mEq/L Carbon Dioxide 28 (21-32) mEq/L Anion Gap 13.1 (5-15) BUN 25 H (7-18) mg/dL Creatinine 0.8 (0.7-1.3) mg/dL Est Cr Clr Drug Dosing 79.85 mL/min Estimated GFR (MDRD) > 60 (>60) mL/min BUN/Creatinine Ratio 31.3 H (14-18) Glucose 115 H (70-99) mg/dL Lactic Acid (0.4-2.0) mmol/L Calcium 8.3 L (8.5-10.1) mg/dL Total Bilirubin 1.1 H (0.2-1.0) mg/dL AST 14 L (15-37) U/L ALT 13 L (16-63) U/L Alkaline Phosphatase 64 (46-116) U/L C-Reactive Protein 15.6 H* (<1.0) mg/dL Total Protein 7.0 (6.4-8.2) g/dl Albumin 3.2 L (3.4-5.0) g/dl Globulin 3.8 gm/dL Albumin/Globulin Ratio 0.8 L (1-2) 07/29/20 Range/Units 09:03 WBC (4.23-9.07) K/mm3 RBC (4.63-6.08) M/mm3 Hgb (13.7-17.5) gm/dl Hct (40.1-51.0) % MCV (79.0-92.2) fl MCH (25.7-32.2) pg MCHC (32.2-35.5) g/dl RDW Std Deviation (35.1-43.9) fL Plt Count (163-337) K/mm3 MPV (9.4-12.3) fl Neutrophils % (Manual) (40-60) % Band Neutrophils % (0-10) % Lymphocytes % (Manual) (20-40) % Atypical Lymphs % % Monocytes % (Manual) (2-10) % Eosinophils % (Manual) (0.8-7.0) % Basophils % (Manual) (0.2-1.2) Toxic Granulation Platelet Estimate Plt Morphology Comment RBC Morph Comment PT (9.7-12.0) SECONDS INR Sodium (136-145) mEq/L Potassium (3.5-5.1) mEq/L Chloride (98-107) mEq/L Carbon Dioxide (21-32) mEq/L Anion Gap (5-15) BUN (7-18) mg/dL Creatinine (0.7-1.3) mg/dL Est Cr Clr Drug Dosing mL/min Estimated GFR (MDRD) (>60) mL/min BUN/Creatinine Ratio (14-18) Glucose (70-99) mg/dL Lactic Acid 0.9 (0.4-2.0) mmol/L Calcium (8.5-10.1) mg/dL Total Bilirubin (0.2-1.0) mg/dL AST (15-37) U/L ALT (16-63) U/L Alkaline Phosphatase (46-116) U/L C-Reactive Protein (<1.0) mg/dL Total Protein (6.4-8.2) g/dl Albumin (3.4-5.0) g/dl Globulin gm/dL Albumin/Globulin Ratio (1-2) Meds: Medications Generic Name Dose Route Start Last Admin Trade Name Freq PRN Reason Stop Dose Admin Sodium Chloride 1,000 mls @ 125 mls/hr 07/29/20 08:37 07/29/20 09:26 Normal Saline IV 07/29/20 16:36 125 mls/hr BOLUS ONE Administration Protocol Ceftriaxone Sodium 2 gm/ 100 mls @ 200 mls/hr 07/29/20 10:45 07/29/20 11:15 Sodium Chloride IV 200 mls/hr Q24H JASPER Administration Ondansetron HCl 4 mg 07/29/20 10:58 07/29/20 11:17 Ondansetron 4 Mg/2 Ml Sdv IVPUSH 07/29/20 10:59 4 mg ONETIME ONE Administration Sodium Chloride 10 ml 07/29/20 08:37 Sodium Chloride 0.9% 10 Ml Syringe FLUSH ASDIRECTED PRN Keep Vein Open Discontinued Medications Generic Name Dose Route Start Last Admin Trade Name Freq PRN Reason Stop Dose Admin Ceftriaxone Sodium Confirm 07/29/20 09:10 07/29/20 11:16 Ceftriaxone 2 Gm Vial Administered 07/29/20 09:11 Not Given Dose 2 gm .ROUTE .STK-MED ONE Ceftriaxone Sodium 2 gm/ 100 mls @ 200 mls/hr 07/29/20 08:37 07/29/20 11:16 Sodium Chloride IV 07/29/20 09:06 Not Given STAT ONE Vancomycin HCl 2 gm/ Sodium 250 mls @ 167 mls/hr 07/29/20 08:37 07/29/20 11:57 Chloride IV 07/29/20 10:06 167 mls/hr STAT ONE Administration Piperacillin Sod/Tazobactam 100 mls @ 200 mls/hr 07/29/20 08:37 07/29/20 09:28 Sod 4.5 gm/ Sodium Chloride IV 07/29/20 09:06 200 mls/hr STAT ONE Administration - Re-Assessments/Exams Free Text/Narrative Re-Assessment/Exam: 07/29/20 12:11 I ordered oxygen, BiPAP, CXR, IV saline lock, labs, cultures, lactic acid, rocephin, vancomycin, and zosyn. His WBC was elevated at 13.38. His Pt is elevated at 12.1. His lactic acid is normal at 0.9. His total bili is elevated at 1.1. His CRP is elevated at 15.6. He is severe sepsis. He has bilateral pneumonia. I have called our hospitalist Dr Kessler and he agreed to the admission. Departure - Departure Time of Disposition: 12:15 Disposition: Admitted As Inpatient 68 Condition: Serious Clinical Impression: Hypoxia, Parkinson disease Pneumonia Qualifiers: Pneumonia type: due to unspecified organism Laterality: left Lung location: lower lobe of lung Qualified Code(s): J18.9 - Pneumonia, unspecified organism Sepsis Qualifiers: Sepsis type: sepsis due to unspecified organism Sepsis acute organ dysfunction status: unspecified Qualified Code(s): A41.9 - Sepsis, unspecified organism - Discharge Information Referrals: Nik Hughes MD [Primary Care Provider] - Forms: ED Department Discharge Sepsis Event Note (ED) - Evaluation Sepsis Screening Result: No Definite Risk - Focused Exam Vital Signs: Vital Signs Temp Pulse Resp BP Pulse Ox 07/29/20 08:38 97.8 F 87 22 H 95/61 79 L - My Orders Last 24 Hours: My Active Orders 07/29/20 08:37 Blood Pressure Mgt: Sepsis [RC] Q15MX2 Chest 1V Frontal [CR] Stat Sodium Chloride 0.9% [Normal Saline] 1,000 ml IV BOLUS Sodium Chloride 0.9% [Saline Flush] 10 ml FLUSH ASDIRECTED PRN Blood Culture x2 Reflex Set [OM.PC] Stat Saline Lock Insert [OM.PC] Stat 07/29/20 08:41 BIPAP Adult [RT BiPAP/CPAP] [RC] ASDIRECTED 07/29/20 09:03 CULTURE BLOOD [BC] Stat 07/29/20 09:10 CULTURE BLOOD [BC] Stat 07/29/20 10:45 cefTRIAXone [Rocephin] 2 gm Sodium Chloride 0.9% [Normal Saline] 100 ml IV Q24H 07/29/20 10:58 Ondansetron [Zofran] 4 mg IVPUSH ONETIME ONE 07/29/20 11:53 CORONAVIRUS COVID-19 CAMILLA [MOLEC] Stat UA W/TYREE RFLX IF INDICATED [URIN] Stat 07/29/20 11:54 Urinary Catheter Assessment [RC] ASDIRECTED 07/29/20 12:00 Insert Morris Catheter [Insert Urinary Catheter] [OM.PC] Q24H - Assessment/Plan Last 24 Hours: My Active Orders 07/29/20 08:37 Blood Pressure Mgt: Sepsis [RC] Q15MX2 Chest 1V Frontal [CR] Stat Sodium Chloride 0.9% [Normal Saline] 1,000 ml IV BOLUS Sodium Chloride 0.9% [Saline Flush] 10 ml FLUSH ASDIRECTED PRN Blood Culture x2 Reflex Set [OM.PC] Stat Saline Lock Insert [OM.PC] Stat 07/29/20 08:41 BIPAP Adult [RT BiPAP/CPAP] [RC] ASDIRECTED 07/29/20 09:03 CULTURE BLOOD [BC] Stat 07/29/20 09:10 CULTURE BLOOD [BC] Stat 07/29/20 10:45 cefTRIAXone [Rocephin] 2 gm Sodium Chloride 0.9% [Normal Saline] 100 ml IV Q24H 07/29/20 10:58 Ondansetron [Zofran] 4 mg IVPUSH ONETIME ONE 07/29/20 11:53 CORONAVIRUS COVID-19 CAMILLA [MOLEC] Stat UA W/TYREE RFLX IF INDICATED [URIN] Stat 07/29/20 11:54 Urinary Catheter Assessment [RC] ASDIRECTED 07/29/20 12:00 Insert Morris Catheter [Insert Urinary Catheter] [OM.PC] Q24H
--- NOTE | 2020-07-29 13:43 | PCM.HP.2 ---
H&P History of Present Illness - General Date of Service: 07/29/20 Admit Problem/Dx: Admission Diagnosis/Problem Admission Diagnosis/Problem Pneumonia Source of Information: Provider History Limitations: Reports: Altered Mental Status - History of Present Illness Duration of Symptoms: Reports: Day(s): Other HPI/Comments: Mr. Fisher is a 64-year-old male with history of advanced Parkinson's disease, supranuclear palsy, chronic dysphagia with a PEG tube, frequent admissions to hospital for respiratory failure with sepsis and aspiration pneumonia. He was brought in from the long term facility today because of a cough, shortness of breath and fever for the past couple days. In the ED patient was dyspneic and required use of a BiPAP. Was also very minimally responsive and unable to give any history. - Related Data Allergies/Adverse Reactions: Allergies Allergy/AdvReac Type Severity Reaction Status Date / Time No Known Allergies Allergy Verified 06/24/20 08:09 Home Medications: Home Meds Carbidopa/Levodopa [Carbidopa-Levodopa 25-100] 1 tab PO QID #120 tablet 10/22/19 [Rx] Gabapentin [Neurontin] 200 mg PO TID #120 dose 10/22/19 [Rx] Losartan [Cozaar] 50 mg PO DAILY #30 dose 10/22/19 [Rx] Ondansetron [Zofran ODT] 4 mg PO Q6H PRN #20 tab.dis 10/22/19 [Rx] Simvastatin 20 mg PO BEDTIME #30 dose 10/22/19 [Rx] Terazosin [Hytrin] 5 mg PO BID #60 cap 10/22/19 [Rx] Baclofen 10 mg PO QID 12/14/19 [History] LORazepam [Ativan] 1.5 mg PO TID 12/14/19 [History] hydroCHLOROthiazide [Hydrochlorothiazide] 12.5 mg PO DAILY 12/14/19 [History] Celecoxib 200 mg PO DAILY 02/11/20 [History] Cyclobenzaprine [Flexeril] 10 mg PO 06,,02/11/20 [History] Sertraline [Zoloft] 100 mg PO BEDTIME 02/11/20 [History] traZODone HCl [Trazodone HCl] 200 mg PO BEDTIME 02/11/20 [History] HYDROmorphone [Dilaudid] 2 mg PO Q6H PRN 02/26/20 [History] fentaNYL [Duragesic] 75 mcg TRDERM Q72H #5 patch 04/21/20 [Rx] Acetaminophen [Tylenol] 650 mg PO Q6H PRN 06/17/20 [History] Magnesium Oxide 400 mg PO BID 06/17/20 [History] Sennosides/Docusate Sodium [Senna Plus 8.6-50 mg Softgel] 1 tab PO DAILY 06/17/20 [History] Sennosides/Docusate Sodium [Senna Plus 8.6-50 mg Softgel] 1 tab PO TID PRN 06/17/20 [History] Trolamine Salicylate/Aloe Vera [Aspercreme 10% Cream] 1 applic TOP Q4H PRN 06/17/20 [History] busPIRone [Buspar] 30 mg PO BID 06/17/20 [History] guaiFENesin [Mucinex] 600 mg PO 07,12,20 06/17/20 [History] polyethylene glycoL 3350 [MiraLAX] 17 gm PO DAILY 06/17/20 [History] Melatonin 10 mg PO BEDTIME 07/29/20 [History] Past Medical History HEENT History: Reports: Impaired Vision Other HEENT History: Wears glasses Cardiovascular History: Reports: High Cholesterol, Hypertension Respiratory History: Reports: Intubation, Previous, Pneumonia, Recurrent, Sleep Apnea Other Respiratory History: Pleural effusions. 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 Psychiatric History: Reports: Anxiety, Depression Other Psychiatric History: insomnia Endocrine/Metabolic History: Reports: None Hematologic History: Reports: None Immunologic History: Reports: None Oncologic (Cancer) History: Reports: None Dermatologic History: Reports: None - Infectious Disease History Infectious Disease History: Reports: MRSA, Shingles - Past Surgical History Head Surgeries/Procedures: Reports: None HEENT Surgical History: Reports: None Cardiovascular Surgical History: Reports: None Respiratory Surgical History: Reports: None GI Surgical History: Reports: Other (See Below) Other GI Surgeries/Procedures: PEG tube placement June 13 2020 Male Surgical History: Reports: Suprapubic Catheter Placement Endocrine Surgical History: Reports: None Neurological Surgical History: Reports: None Musculoskeletal Surgical History: Reports: None Oncologic Surgical History: Reports: None Dermatological Surgical History: Reports: None - History Comment History Comment: Patient has chronic severe generalized pain. He is currently on Dilaudid 2 mg 3 times daily and fentanyl patch. 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 Social & Family History - Family History Family Medical History: No Pertinent Family History - Tobacco Use Tobacco Use Status *Q: Never Tobacco User - Caffeine Use Caffeine Use: Reports: None - Recreational Drug Use Recreational Drug Use: No - Living Situation & Occupation Living situation: Reports: Single, Alone, Extended Care Facility ([facility] Occupation: Disabled H&P Review of Systems - Review of Systems: Review Of Systems: Unable To Obtain Reason Not Obtained: altered mental status Exam - Exam Exam: See Below - Vital Signs Vital Signs: Last Vital Signs Temp 99.1 F 07/29/20 13:33 Pulse 82 07/29/20 13:33 Resp 36 H 07/29/20 13:33 BP 95/60 07/29/20 13:33 Pulse Ox 80 L 07/29/20 13:33 Weight: 130 lb - Exam Physical Exam Comments:: Subjective: This is a middle-aged male appears much older than stated age. He is currently in respiratory distress and on a BiPAP machine. Objective: He remains unresponsive. Vitals: See chart HEENT: Normocephalic atraumatic pupils equal round react accommodation extraocular is intact CVS: S1-S2 appreciated, tachycardic no murmurs rubs or gallops Lungs: Diminished breath sounds bilaterally. Tachypneic with use of accessory neck muscles of respiration. Abdomen: Soft , nontender, bowel sounds are present. PEG tube in place ext: There is no clubbing, cyanosis or edema neuro: Patient spontaneously moving his upper extremities. He does not cooperate for a full neuro exam due to altered mentation. - Patient Data Lab Results Last 24 hrs: Laboratory Results - last 24 hr 07/29/20 07/29/20 07/29/20 Range/Units 09:03 09:03 09:03 WBC 13.38 H (4.23-9.07) K/mm3 RBC 4.10 L (4.63-6.08) M/mm3 Hgb 12.1 L (13.7-17.5) gm/dl Hct 37.6 L (40.1-51.0) % MCV 91.7 D (79.0-92.2) fl MCH 29.5 (25.7-32.2) pg MCHC 32.2 (32.2-35.5) g/dl RDW Std Deviation 49.3 H (35.1-43.9) fL Plt Count 153 L (163-337) K/mm3 MPV 11.7 (9.4-12.3) fl Neutrophils % (Manual) 66 H (40-60) % Band Neutrophils % 16 H (0-10) % Lymphocytes % (Manual) 9 L (20-40) % Atypical Lymphs % 0 % Monocytes % (Manual) 9 (2-10) % Eosinophils % (Manual) 0 L (0.8-7.0) % Basophils % (Manual) 0 L (0.2-1.2) Toxic Granulation 1+ slight Platelet Estimate Adequate Plt Morphology Comment Normal RBC Morph Comment Normal PT 12.1 H (9.7-12.0) SECONDS INR 1.13 Puncture Site ABG pH (7.35-7.45) ABG pCO2 (35.0-45.0) mmHg ABG pO2 (80.0-100.0) mmHg ABG HCO3 (22.0-26.0) meq/L ABG O2 Saturation (96.0-97.0) % ABG Base Excess (-2-2.0) Nicholas Test A-a Gradient mmHg O2 Delivery Device FiO2 (21.00-100.00) % Blood Gas Comments Sodium 137 (136-145) mEq/L Potassium 4.1 (3.5-5.1) mEq/L Chloride 100 (98-107) mEq/L Carbon Dioxide 28 (21-32) mEq/L Anion Gap 13.1 (5-15) BUN 25 H (7-18) mg/dL Creatinine 0.8 (0.7-1.3) mg/dL Est Cr Clr Drug Dosing 79.85 mL/min Estimated GFR (MDRD) > 60 (>60) mL/min BUN/Creatinine Ratio 31.3 H (14-18) Glucose 115 H (70-99) mg/dL Lactic Acid (0.4-2.0) mmol/L Calcium 8.3 L (8.5-10.1) mg/dL Total Bilirubin 1.1 H (0.2-1.0) mg/dL AST 14 L (15-37) U/L ALT 13 L (16-63) U/L Alkaline Phosphatase 64 (46-116) U/L C-Reactive Protein 15.6 H* (<1.0) mg/dL Total Protein 7.0 (6.4-8.2) g/dl Albumin 3.2 L (3.4-5.0) g/dl Globulin 3.8 gm/dL Albumin/Globulin Ratio 0.8 L (1-2) Urine Color (Yellow) Urine Appearance (Clear) Urine pH (5.0-8.0) Ur Specific [place] (1.005-1.030) Urine Protein (Negative) Urine Glucose (UA) (Negative) Urine Ketones (Negative) Urine Occult Blood (Negative) Urine Nitrite (Negative) Urine Bilirubin (Negative) Urine Urobilinogen (0.2-1.0) Ur Leukocyte Esterase (Negative) SARS-CoV-2 RNA (CAMILLA) (NEGATIVE) 07/29/20 07/29/20 07/29/20 Range/Units 09:03 11:53 11:53 WBC (4.23-9.07) K/mm3 RBC (4.63-6.08) M/mm3 Hgb (13.7-17.5) gm/dl Hct (40.1-51.0) % MCV (79.0-92.2) fl MCH (25.7-32.2) pg MCHC (32.2-35.5) g/dl RDW Std Deviation (35.1-43.9) fL Plt Count (163-337) K/mm3 MPV (9.4-12.3) fl Neutrophils % (Manual) (40-60) % Band Neutrophils % (0-10) % Lymphocytes % (Manual) (20-40) % Atypical Lymphs % % Monocytes % (Manual) (2-10) % Eosinophils % (Manual) (0.8-7.0) % Basophils % (Manual) (0.2-1.2) Toxic Granulation Platelet Estimate Plt Morphology Comment RBC Morph Comment PT (9.7-12.0) SECONDS INR Puncture Site ABG pH (7.35-7.45) ABG pCO2 (35.0-45.0) mmHg ABG pO2 (80.0-100.0) mmHg ABG HCO3 (22.0-26.0) meq/L ABG O2 Saturation (96.0-97.0) % ABG Base Excess (-2-2.0) Nicholas Test A-a Gradient mmHg O2 Delivery Device FiO2 (21.00-100.00) % Blood Gas Comments Sodium (136-145) mEq/L Potassium (3.5-5.1) mEq/L Chloride (98-107) mEq/L Carbon Dioxide (21-32) mEq/L Anion Gap (5-15) BUN (7-18) mg/dL Creatinine (0.7-1.3) mg/dL Est Cr Clr Drug Dosing mL/min Estimated GFR (MDRD) (>60) mL/min BUN/Creatinine Ratio (14-18) Glucose (70-99) mg/dL Lactic Acid 0.9 (0.4-2.0) mmol/L Calcium (8.5-10.1) mg/dL Total Bilirubin (0.2-1.0) mg/dL AST (15-37) U/L ALT (16-63) U/L Alkaline Phosphatase (46-116) U/L C-Reactive Protein (<1.0) mg/dL Total Protein (6.4-8.2) g/dl Albumin (3.4-5.0) g/dl Globulin gm/dL Albumin/Globulin Ratio (1-2) Urine Color Yellow (Yellow) Urine Appearance Clear (Clear) Urine pH 7.0 (5.0-8.0) Ur Specific [place] 1.020 (1.005-1.030) Urine Protein Negative (Negative) Urine Glucose (UA) Negative (Negative) Urine Ketones Negative (Negative) Urine Occult Blood Negative (Negative) Urine Nitrite Negative (Negative) Urine Bilirubin Negative (Negative) Urine Urobilinogen 0.2 (0.2-1.0) Ur Leukocyte Esterase Negative (Negative) SARS-CoV-2 RNA (CAMILLA) Negative (NEGATIVE) 07/29/20 07/29/20 Range/Units 12:23 12:56 WBC (4.23-9.07) K/mm3 RBC (4.63-6.08) M/mm3 Hgb (13.7-17.5) gm/dl Hct (40.1-51.0) % MCV (79.0-92.2) fl MCH (25.7-32.2) pg MCHC (32.2-35.5) g/dl RDW Std Deviation (35.1-43.9) fL Plt Count (163-337) K/mm3 MPV (9.4-12.3) fl Neutrophils % (Manual) (40-60) % Band Neutrophils % (0-10) % Lymphocytes % (Manual) (20-40) % Atypical Lymphs % % Monocytes % (Manual) (2-10) % Eosinophils % (Manual) (0.8-7.0) % Basophils % (Manual) (0.2-1.2) Toxic Granulation Platelet Estimate Plt Morphology Comment RBC Morph Comment PT (9.7-12.0) SECONDS INR Puncture Site Rt radial Rt radial ABG pH 7.30 L 7.28 L (7.35-7.45) ABG pCO2 59.4 H 65.8 H (35.0-45.0) mmHg ABG pO2 56.0 L 73.0 L (80.0-100.0) mmHg ABG HCO3 28.4 H 29.6 H (22.0-26.0) meq/L ABG O2 Saturation 89.4 L 89.4 L (96.0-97.0) % ABG Base Excess 1.4 1.8 (-2-2.0) Nicholas Test Positive Positive A-a Gradient 583 558 mmHg O2 Delivery Device Bipap Bipap FiO2 100.00 100.00 (21.00-100.00) % Blood Gas Comments 30/09 16 Sodium (136-145) mEq/L Potassium (3.5-5.1) mEq/L Chloride (98-107) mEq/L Carbon Dioxide (21-32) mEq/L Anion Gap (5-15) BUN (7-18) mg/dL Creatinine (0.7-1.3) mg/dL Est Cr Clr Drug Dosing mL/min Estimated GFR (MDRD) (>60) mL/min BUN/Creatinine Ratio (14-18) Glucose (70-99) mg/dL Lactic Acid (0.4-2.0) mmol/L Calcium (8.5-10.1) mg/dL Total Bilirubin (0.2-1.0) mg/dL AST (15-37) U/L ALT (16-63) U/L Alkaline Phosphatase (46-116) U/L C-Reactive Protein (<1.0) mg/dL Total Protein (6.4-8.2) g/dl Albumin (3.4-5.0) g/dl Globulin gm/dL Albumin/Globulin Ratio (1-2) Urine Color (Yellow) Urine Appearance (Clear) Urine pH (5.0-8.0) Ur Specific [place] (1.005-1.030) Urine Protein (Negative) Urine Glucose (UA) (Negative) Urine Ketones (Negative) Urine Occult Blood (Negative) Urine Nitrite (Negative) Urine Bilirubin (Negative) Urine Urobilinogen (0.2-1.0) Ur Leukocyte Esterase (Negative) SARS-CoV-2 RNA (CAMILLA) (NEGATIVE) Result Diagrams: 07/30/20 05:20 07/30/20 05:20 Sepsis Event Note - Evaluation Sepsis Screening Result: No Definite Risk - Focused Exam Vital Signs: Vital Signs Temp Pulse Pulse Resp BP Pulse Ox 07/29/20 13:33 99.1 F 82 36 H 95/60 80 L 07/29/20 13:30 71 33 H 85/61 L 07/29/20 13:28 75 22 H 90/61 07/29/20 11:10 82 30 H 103/62 07/29/20 10:30 70 32 H 100/64 07/29/20 09:50 72 27 H 99/65 07/29/20 09:00 81 24 H 91/62 07/29/20 08:38 97.8 F 87 22 H 95/61 79 L - Problem List (1) Acute respiratory failure SNOMED Code(s): 02070135 ICD Code: J96.00 - ACUTE RESPIRATORY FAILURE, UNSP W HYPOXIA OR HYPERCAPNIA Status: Acute Priority: High Current Visit: Yes Problem Details: Etiology is unclear. Most likely due to aspiration pneumonia with sepsis. Will admit pt to the ICU for IV Abx Bipap for now. COVID 19 is negative. Pancultures are pending. CXR did not seem to have an overt infiltrate but this could definately change on repeat imaging. Qualifiers: Respiratory failure complication: hypoxia and hypercapnia Qualified Code(s): J96.01 - Acute respiratory failure with hypoxia; J96.02 - Acute respiratory failure with hypercapnia (2) Sepsis SNOMED Code(s): 40511718 ICD Code: A41.9 - SEPSIS, UNSPECIFIED ORGANISM Status: Acute Current Visit: Yes Qualifiers: Sepsis type: sepsis due to unspecified organism Sepsis acute organ dysfunction status: with acute organ dysfunction Severe sepsis acute organ dysfunction type: acute respiratory failure Severe sepsis shock status: with septic shock Qualified Code(s): A41.9 - Sepsis, unspecified organism; R65.21 - Severe sepsis with septic shock; J96.01 - Acute respiratory failure with hypoxia (3) Parkinson disease SNOMED Code(s): 63789276 ICD Code: G20 - PARKINSON'S DISEASE Status: Acute Current Visit: Yes Problem Details: Continue home medication cinemet via PEG tube when more stable. (4) Progressive supranuclear palsy SNOMED Code(s): 416721119 ICD Code: G23.1 - PROGRESSIVE SUPRANUCLEAR OPHTHALMOPLEGIA Status: Acute Current Visit: Yes Problem Details: supportive care. I also discussed with the family in great detail about the patient's overall poor prognosis. The family is in agreement with keeping him as a DNR and treating him more conservatively. I will continue with the IV antibiotics, hydration and O2 supplementation. Will not use pressors. We will consult hospice during this hospital stay. (5) DNR (do not resuscitate) Status: Acute Current Visit: Yes Problem Details: Will do antibiotics, pressors and NIPPV but no intubation I spoke with his Sister, eJri who is also her medical POA regarding his severe condition. She notified the rest of the family and they will be coming in to visit with him. (6) Dysphagia SNOMED Code(s): 40803180, 374686908 ICD Code: R13.10 - DYSPHAGIA, UNSPECIFIED Status: Chronic Current Visit: No Problem Details: Pt only takes ice chips for comfort. Nutrition is via PEG tube. He has a h/o recurrent aspiration pneumonia. Qualifiers: Dysphagia type: unspecified Qualified Code(s): R13.10 - Dysphagia, unspecified (7) DVT prophylaxis SNOMED Code(s): 357823686, 127159561 ICD Code: Z29.9 - ENCOUNTER FOR PROPHYLACTIC MEASURES, UNSPECIFIED Status: Acute Current Visit: Yes (8) DVT prophylaxis SNOMED Code(s): 065162177, 974404561 ICD Code: Z29.9 - ENCOUNTER FOR PROPHYLACTIC MEASURES, UNSPECIFIED Status: Acute Current Visit: Yes Problem Details: chemical prophylaxis. Problem List Initiated/Reviewed/Updated: Yes Orders Last 24hrs: Active Orders 24 hr Category Date Time Status Patient Status [ADT] Routine ADT 07/29/20 13:14 Active ABG [RT Arterial Blood Gases, ABG] [RC] Click to Edit Care 07/29/20 12:52 Active BIPAP Adult [RT BiPAP/CPAP] [RC] ASDIRECTED Care 07/29/20 08:41 Active Blood Pressure Mgt: Sepsis [RC] Q15MX2 Care 07/29/20 08:37 Active Insert Morris Catheter [Insert Urinary Catheter] [OM.PC] Care 07/29/20 12:00 Ordered Q24H Urinary Catheter Assessment [RC] ASDIRECTED Care 07/29/20 11:54 Active Chest 1V Frontal [CR] Stat Exams 07/29/20 08:37 Taken ABG [BLOOD GAS ARTERIAL] [BG] Stat Lab 07/29/20 12:23 Results BLOOD GAS ARTERIAL [BG] Stat Lab 07/29/20 12:56 Results CULTURE BLOOD [BC] Stat Lab 07/29/20 09:03 Received CULTURE BLOOD [BC] Stat Lab 07/29/20 09:10 Received Ondansetron [Zofran] Med 07/29/20 10:58 Once 4 mg IVPUSH ONETIME ONE Sodium Chloride 0.9% [Normal Saline] 1,000 ml Med 07/29/20 08:37 Active IV BOLUS Sodium Chloride 0.9% [Saline Flush] Med 07/29/20 08:37 Active 10 ml FLUSH ASDIRECTED PRN cefTRIAXone [Rocephin] 2 gm Med 07/29/20 10:45 Active Sodium Chloride 0.9% [Normal Saline] 100 ml IV Q24H Blood Culture x2 Reflex Set [OM.PC] Stat Oth 07/29/20 08:37 Ordered Saline Lock Insert [OM.PC] Stat Oth 07/29/20 08:37 Ordered Medication Orders Sodium Chloride (Normal Saline) 1,000 mls @ 125 mls/hr IV BOLUS ONE; Protocol Stop: 07/29/20 16:36 Last Admin: 07/29/20 09:26 Dose: 125 mls/hr Documented by: KALEIGH Ceftriaxone Sodium 2 gm/ (Sodium Chloride) 100 mls @ 200 mls/hr IV Q24H JASPER Last Admin: 07/29/20 11:15 Dose: 200 mls/hr Documented by: ROBIN Ondansetron HCl (Ondansetron 4 Mg/2 Ml Sdv) 4 mg IVPUSH ONETIME ONE Stop: 07/29/20 10:59 Last Admin: 07/29/20 11:17 Dose: 4 mg Documented by: ROBIN Sodium Chloride (Sodium Chloride 0.9% 10 Ml Syringe) 10 ml FLUSH ASDIRECTED PRN PRN Reason: Keep Vein Open - Mortality Measure Prognosis:: Poor
--- NOTE | 2020-07-29 13:58 | CR ---
Chest: Portable view of the chest was obtained. Comparison: Prior chest x-ray of 06/17/20 Small left-sided pleural effusion is seen with slight atelectasis within the left base. Small nodule is noted within the upper right lung which is stable. Slight increased density within the medial right lung base is seen possibly due to an area of pneumonia. Degenerative change is scattered throughout the spine. Heart size appears within normal limits for portable technique. Impression: 1. Small left-sided pleural effusion and left basilar atelectasis. 2. Possible area of pneumonia within the medial right lung base. 3. Other findings as noted above which are stable. Diagnostic code #3
[2020-07-29] MEDS ORDERED: oxyCODONE 5 MG Tab PO PRN (15:44)
[2020-07-29] MEDS ORDERED: Acetaminophen 325 MG Tab PO PRN (15:44)
[2020-07-29] MEDS ORDERED: Ondansetron 4 MG Tab.DIS PO PRN (15:44)
[2020-07-29] MEDS ORDERED: Sodium Chloride 0.9% 1,000 ML IV SCH (15:45)
[2020-07-29] MEDS ORDERED: Piperacillin/Tazobactam 4.5 GM in Sodium Chloride 0.9% 100 ML IV SCH (16:00)
[2020-07-29] MEDS ORDERED: Norepinephrine 4 MG in Dextrose 5% in Water 246 ML IV SCH ×2 (16:15)
[2020-07-29] MEDS ORDERED: LORazepam 2 MG/ML SDV IVPUSH PRN (17:26)
[2020-07-29] MEDS ORDERED: Dextrose 5%-0.9% NaCl 1,000 ML IV SCH (17:30)
[2020-07-29] MEDS ORDERED: Omeprazole 20 MG Cap.CR PO SCH (17:30)
[2020-07-29] MEDS ORDERED: Acetaminophen 325 MG/10.15 ML ML PO PRN (17:31)
[2020-07-29] MEDS: Carbidopa/Levodopa 25-100 MG Tab PEGTUBE SCH ×2 (18:00→20:54)
[2020-07-29] MEDS: Baclofen 10 MG Tab PEGTUBE SCH ×2 (18:00→20:54)
[2020-07-29] MEDS: Enoxaparin 40 MG/0.4 ML Syringe SUBCUT SCH (18:01)
[2020-07-29] MEDS: Pantoprazole 40 MG Vial IVPUSH SCH (18:38)
[2020-07-29] MEDS: Morphine 2 MG/ML SYRINGE IVPUSH PRN (19:11)
[2020-07-29] MEDS: LORazepam 2 MG/ML SDV IVPUSH PRN (19:45)
[2020-07-29] MEDS: Gabapentin 100 MG Cap PEGTUBE SCH (20:54)
[2020-07-29] MEDS: Terazosin 5 MG Cap PEGTUBE SCH (20:54)
[2020-07-29] MEDS: busPIRone 15 MG Tab PEGTUBE SCH (20:54)
[2020-07-29] MEDS: Cyclobenzaprine 10 MG Tab PEGTUBE SCH (20:54)
[2020-07-29] MEDS: Sertraline 50 MG Tab PO SCH (20:55)
[2020-07-29] MEDS: traZODone 50 MG Tab PO SCH (20:55)
[2020-07-29] MEDS ORDERED: traZODone 50 MG Tab PO SCH (21:00)
[2020-07-30] MEDS ORDERED: Vancomycin 1 GM, Vancomycin 500 MG in Sodium Chloride 0.9% 500 ML IV SCH ×3
[2020-07-30] MEDS: Morphine 2 MG/ML SYRINGE IVPUSH PRN ×3 (03:32→09:51)
[2020-07-30] MEDS: LORazepam 2 MG/ML SDV IVPUSH PRN ×2 (04:02→12:17)
[2020-07-30] MEDS: Cyclobenzaprine 10 MG Tab PEGTUBE SCH ×3 (05:55→20:14)
[2020-07-30] MEDS: Terazosin 5 MG Cap PEGTUBE SCH ×2 (08:46→20:13)
[2020-07-30] MEDS ORDERED: valACYclovir 1,000 MG Tab PO SCH (09:00)
[2020-07-30] MEDS: Gabapentin 100 MG Cap PEGTUBE SCH ×3 (09:01→20:17)
[2020-07-30] MEDS: Polyethylene Glycol 3350 Powder 17 GM Packet PEGTUBE SCH (09:01)
[2020-07-30] MEDS: busPIRone 15 MG Tab PEGTUBE SCH ×2 (09:02→20:13)
[2020-07-30] MEDS: Baclofen 10 MG Tab PEGTUBE SCH ×4 (09:02→20:13)
[2020-07-30] MEDS: Carbidopa/Levodopa 25-100 MG Tab PEGTUBE SCH ×4 (09:02→20:13)
[2020-07-30] MEDS ORDERED: Dextrose 5%-0.9% NaCl 1,000 ML IV SCH (10:45)
[2020-07-30] MEDS: Enoxaparin 40 MG/0.4 ML Syringe SUBCUT SCH (17:25)
[2020-07-30] MEDS: Pantoprazole 40 MG Vial IVPUSH SCH (17:26)
[2020-07-30] MEDS ORDERED: fentaNYL 75 MCG/HR Transdermal Patch TRDERM SCH (20:00)
[2020-07-30] MEDS: Sertraline 50 MG Tab PO SCH (20:14)
[2020-07-30] MEDS: traZODone 50 MG Tab PO SCH (20:16)
[2020-07-30] MEDS: HYDROmorphone 2 MG Tab PO PRN (23:55)
[2020-07-31 05:13] VITALS: PULSE 86
[2020-07-31] MEDS: Cyclobenzaprine 10 MG Tab PEGTUBE SCH ×2 (05:53→11:42)
[2020-07-31] MEDS: Baclofen 10 MG Tab PEGTUBE SCH ×2 (08:53→13:59)
[2020-07-31] MEDS: busPIRone 15 MG Tab PEGTUBE SCH (08:54)
[2020-07-31] MEDS: HYDROmorphone 2 MG Tab PO PRN (08:56)
[2020-07-31] MEDS: Polyethylene Glycol 3350 Powder 17 GM Packet PEGTUBE SCH (08:57)
[2020-07-31] MEDS: Gabapentin 100 MG Cap PEGTUBE SCH ×2 (08:57→13:59)
[2020-07-31] MEDS: Carbidopa/Levodopa 25-100 MG Tab PEGTUBE SCH ×2 (08:58→13:59)
[2020-07-31] MEDS: Terazosin 5 MG Cap PEGTUBE SCH (10:04)
--- NOTE | 2020-07-31 11:04 | PCM.SN.2 ---
- Free Text/Narrative Note: Progress note on David Matias Date of service 07/30/2020 Subjectively: Patient is afebrile this morning. His systolic blood pressure has been in the 110's. He has been able to maintain his O2 sats in the mid 80%-90% on 3 L nasal cannula. The family is agreeable to pursuing comfort measures at this time. They would like to speak to hospice prior to his discharge. They also are in agreement to not escalate any further care Objective: Patient is awake and alert. He is talkative. Oriented to self and place. Vitals: 98.7, 97, 112/61, 86 to 90% sat on 3 L nasal cannula HEENT: Normocephalic atraumatic pupils equal round react light and accommodation extraocular is intact CVS: S1-S2 appreciated. Regular rate and rhythm no murmurs rubs or gallops Lungs: Clear without rales or wheezes Abdomen: soft, nontender, bowel sounds are present Extremities: There is no clubbing cyanosis edema peripheral pulses 2+ Neuro: Patient moves extremities. Sensations intact. He has increased muscle tone. Psych affect is flat. Mood is stable Impression #1 acute hypoxemic respiratory failure secondary to aspiration pneumonia. #2 Sepsis due to #1 above #3 advanced Parkinson's disease #4 supranuclear palsy #5 DNR status now comfort care #6 recurrent aspiration Plan We will continue with current treatment with hydration and IV antibiotics. Avoid escalating care. O2 by nasal cannula Obtain hospice consultation tomorrow Plan to DC patient back to [facility] with comfort care orders.
[2020-07-31] MEDS: LORazepam 2 MG/ML SDV IVPUSH PRN (11:30)
--- NOTE | 2020-07-31 12:41 | PCM.SN.2 ---
- Free Text/Narrative Note: Discharge summary on David Matias Discharge date is 07/31/2020 Discharge diagnosis: Acute hypoxemic respiratory failure with severe sepsis due to aspiration pneumonia Severe sepsis Recurrent aspiration Dysphagia Advanced Parkinson's disease Supranuclear palsy Discharge medications: See MAR Short history/Hospital course Mr. Aguilera is a 62-year-old male with a history of advanced Parkinson's disease, supranuclear palsy, chronic dysphagia with recurrent aspiration who was admitted to the hospital with another episode of aspiration pneumonia and acute hypoxemic respiratory failure with hypercarbia. Initially the patient was obtunded, hypotensive and required plenty of IV fluids to sustain his blood pressure. He also required use of a BiPAP to help oxygenate and ventilate him. He was admitted to the intensive care unit and given broad-spectrum IV antibiotics and fluids. His family members came in to visit him during his hospital stay. After having a lengthy talk with the POA and the rest of his family members, the decision was made to make him DNR comfort care only. I continued his treatments but did not escalate any further care. After an overnight stay the patient become more alert and able to communicate appropriately. The following day his blood pressure and O2 sat were more stable and he was able to be discharged back to the [facility] for comfort measures. Hospice was consulted prior to discharge and will follow along while at the [facility]. Condition on discharge was fair. Prognosis is poor Discharge time was a 45 minutes Activities as tolerated Diet:patient is n.p.o. except for ice chips and popsicles. He is to continue with his nocturnal tube feeds via PEG tube Physical exam Subjective: Patient afebrile with stable blood pressure. O2 sats have been in a from 85 to 90% on 3 L nasal cannula Objective: Awake and alert in no acute distress Vitals: Stable CVS: S1-S2 appreciated, regular rate and rhythm, no murmurs, rubs or gallops Lungs: Clear any rales or wheezes Abdomen: Soft, nontender, bowel sounds are present Extremities: There is no clubbing cyanosis edema peripheral 2+ Neuro: Patient moves all extremities. Sensation is intact. Gait not examined. Patient has increased muscle tone in all his extremities
[2020-07-31 14:55] VITALS: BP 105/70
--- NOTE | 2020-08-09 08:31 | PCM.DCSUM1 ---
Discharge Summary - Hospital Course HPI Initial Comments: Mr. Fisher is a 64-year-old male with history of advanced Parkinson's disease, supranuclear palsy, chronic dysphagia with a PEG tube, frequent admissions to hospital for respiratory failure with sepsis and aspiration pneumonia. He was brought in from the longterm facility today because of a cough, shortness of breath and fever for the past couple days. In the ED patient was dyspneic and required use of a BiPAP. Was also very minimally responsive and unable to give any history. Diagnosis: Stroke: No - Discharge Data Discharge Date: 08/01/20 (Admit date: 07/29/20) Discharge Disposition: DC/Tfer to SNF 03 Condition: Poor - Referral to Home Health Primary Care Physician: Nik Hughes MD - Patient Summary/Data Consults: Consultations 07/31/20 08:39 Consult to Case Management/Brick Tosser [CONS] Routine Consult to Hospice [CONS] Routine Labs Pending at D/C: None Recommended Follow-up Testing/Procedures: Follow-up as needed for comfort cares - Patient Instructions Diet: Usual Diet as Tolerated Activity: Bedrest Driving: Do Not Drive - Discharge Plan Prescriptions/Med Rec: Amoxicillin/Clavulanate K [Augmentin 875-125 MG] 1 tab PEGTUBE BID 6 Days #13 tablet Home Medications: Home Meds Carbidopa/Levodopa [Carbidopa-Levodopa 25-100] 1 tab PO QID #120 tablet 10/22/19 [Rx] Ondansetron [Zofran ODT] 4 mg PO Q6H PRN #20 tab.dis 10/22/19 [Rx] Terazosin [Hytrin] 5 mg PO BID #60 cap 10/22/19 [Rx] Baclofen 10 mg PO QID 12/14/19 [History] LORazepam [Ativan] 1.5 mg PO TID 12/14/19 [History] Celecoxib 200 mg PO DAILY 02/11/20 [History] Cyclobenzaprine [Flexeril] 10 mg PO 06,,02/11/20 [History] Sertraline [Zoloft] 100 mg PO BEDTIME 02/11/20 [History] traZODone HCl [Trazodone HCl] 200 mg PO BEDTIME 02/11/20 [History] HYDROmorphone [Dilaudid] 2 mg PO Q6H PRN 02/26/20 [History] fentaNYL [Duragesic] 75 mcg TRDERM Q72H #5 patch 04/21/20 [Rx] Acetaminophen [Tylenol] 650 mg PO Q6H PRN 06/17/20 [History] Magnesium Oxide 400 mg PO BID 06/17/20 [History] Sennosides/Docusate Sodium [Senna Plus 8.6-50 mg Softgel] 1 tab PO TID PRN 06/17/20 [History] Trolamine Salicylate/Aloe Vera [Aspercreme 10% Cream] 1 applic TOP Q4H PRN 06/17/20 [History] busPIRone [Buspar] 30 mg PO BID 06/17/20 [History] guaiFENesin [Mucinex] 600 mg PO 07,12,20 06/17/20 [History] polyethylene glycoL 3350 [MiraLAX] 17 gm PO DAILY 06/17/20 [History] Melatonin 10 mg PO BEDTIME 07/29/20 [History] Amoxicillin/Clavulanate K [Augmentin 875-125 MG] 1 tab PEGTUBE BID 6 Days #13 tablet 07/31/20 [Rx] Gabapentin [Neurontin] 200 mg PEGTUBE TID cap 07/31/20 [Rx] Oxygen Therapy Mode: Nasal Cannula Oxygen Flow Rate (L/min): 3 Forms: ED Department Discharge Referrals: Nik Hughes MD [Primary Care Provider] - 08/08/20 11:30 am (check in at 11:15) - Discharge Summary/Plan Comment DC Time >30 min.: Yes - Patient Data Vitals - Most Recent: Last Vital Signs Temp 98.2 F 07/31/20 12:00 Pulse 86 07/31/20 05:00 Resp 24 H 07/31/20 12:00 BP 105/70 07/31/20 12:00 Pulse Ox 88 L 07/31/20 12:00 Weight - Most Recent: 159 lb Med Orders - Current: Current Medications Discontinued Medications Acetaminophen (Acetaminophen 325 Mg Tab) 650 mg PO Q4H PRN PRN Reason: Pain Acetaminophen (Acetaminophen 325 Mg/10.15 Ml Ml) 650 mg PO Q4H PRN PRN Reason: Pain Baclofen (Baclofen 10 Mg Tab) 10 mg PEGTUBE QID COUNTS INCLUDE 234 BEDS AT THE [facility] Last Admin: 07/31/20 13:59 Dose: 10 mg Documented by: Buspirone HCl (Buspirone 15 Mg Tab) 30 mg PEGTUBE BID COUNTS INCLUDE 234 BEDS AT THE [facility] Last Admin: 07/31/20 08:54 Dose: 30 mg Documented by: Carbidopa/Levodopa (Carbidopa/Levodopa 25-100 Mg Tab) 1 tab PEGTUBE QID COUNTS INCLUDE 234 BEDS AT THE [facility] Last Admin: 07/31/20 13:59 Dose: 1 tab Documented by: Ceftriaxone Sodium (Ceftriaxone 2 Gm Vial) Confirm Administered Dose 2 gm .ROUTE .STK-MED ONE Stop: 07/29/20 09:11 Last Admin: 07/29/20 11:16 Dose: Not Given Documented by: Cyclobenzaprine HCl (Cyclobenzaprine 10 Mg Tab) 10 mg PEGTUBE TID@0600,1200,2000 COUNTS INCLUDE 234 BEDS AT THE [facility] Last Admin: 07/31/20 11:42 Dose: 10 mg Documented by: Enoxaparin Sodium (Enoxaparin 40 Mg/0.4 Ml Syringe) 40 mg SUBCUT DAILY@1800 COUNTS INCLUDE 234 BEDS AT THE [facility] Last Admin: 07/30/20 17:25 Dose: Not Given Documented by: Fentanyl (Fentanyl 75 Mcg/Hr Transdermal Patch) 75 mcg TRDERM Q72H COUNTS INCLUDE 234 BEDS AT THE [facility] Last Admin: 07/30/20 20:09 Dose: 75 mcg Documented by: Gabapentin (Gabapentin 100 Mg Cap) 200 mg PEGTUBE TID COUNTS INCLUDE 234 BEDS AT THE [facility] Last Admin: 07/31/20 13:59 Dose: 200 mg Documented by: Hydromorphone HCl (Hydromorphone 2 Mg Tab) 2 mg PO Q6H PRN PRN Reason: Pain Last Admin: 07/31/20 08:56 Dose: 2 mg Documented by: Ceftriaxone Sodium 2 gm/ (Sodium Chloride) 100 mls @ 200 mls/hr IV STAT ONE Stop: 07/29/20 09:06 Last Admin: 07/29/20 11:16 Dose: Not Given Documented by: Vancomycin HCl 2 gm/ Sodium (Chloride) 250 mls @ 167 mls/hr IV STAT ONE Stop: 07/29/20 10:06 Last Admin: 07/29/20 11:57 Dose: 167 mls/hr Documented by: Piperacillin Sod/Tazobactam (Sod 4.5 gm/ Sodium Chloride) 100 mls @ 200 mls/hr IV STAT ONE Stop: 07/29/20 09:06 Last Admin: 07/29/20 09:28 Dose: 200 mls/hr Documented by: Sodium Chloride (Normal Saline) 1,000 mls @ 125 mls/hr IV BOLUS ONE; Protocol Stop: 07/29/20 16:36 Last Infusion: 07/29/20 16:10 Dose: 75 mls/hr Documented by: Ceftriaxone Sodium 2 gm/ (Sodium Chloride) 100 mls @ 200 mls/hr IV Q24H JASPER Last Admin: 07/29/20 11:15 Dose: 200 mls/hr Documented by: Sodium Chloride (Normal Saline) 1,000 mls @ 75 mls/hr IV ASDIRECTED JASPER Stop: 07/30/20 15:46 Vancomycin HCl 1 gm/ Sodium (Chloride) 250 mls @ 250 mls/hr IV Q24H JASPER Last Admin: 07/29/20 17:18 Dose: Not Given Documented by: Piperacillin Sod/Tazobactam (Sod 4.5 gm/ Sodium Chloride) 100 mls @ 25 mls/hr IV Q8H COUNTS INCLUDE 234 BEDS AT THE [facility] Last Admin: 07/29/20 17:56 Dose: 25 mls/hr Documented by: Norepinephrine Bitartrate 4 mg (/ Dextrose/Water) 250 mls @ 7.5 mls/hr IV TITRATE COUNTS INCLUDE 234 BEDS AT THE [facility]; Protocol Vancomycin HCl 1 gm/Vancomycin HCl 500 mg/ Sodium Chloride 500 mls @ 333.333 mls/hr IV Q12H JASPER Dextrose/Sodium Chloride (Dextrose 5%-Normal Saline) 1,000 mls @ 100 mls/hr IV ASDIRECTED JASPER Stop: 07/30/20 17:31 Last Infusion: 07/30/20 10:45 Dose: Infused Documented by: Dextrose/Sodium Chloride (Dextrose 5%-Normal Saline) 1,000 mls @ 75 mls/hr IV ASDIRECTED JASPER Last Admin: 07/30/20 19:27 Dose: 75 mls/hr Documented by: Lorazepam (Lorazepam 2 Mg/Ml Sdv) 0.5 mg IVPUSH Q4H PRN PRN Reason: Agitation Last Admin: 07/29/20 17:50 Dose: 0.5 mg Documented by: Lorazepam (Lorazepam 2 Mg/Ml Sdv) 1 mg IVPUSH Q2H PRN PRN Reason: Restlessness Last Admin: 07/31/20 11:30 Dose: 1 mg Documented by: Miscellaneous Information (Remove Fentanyl Patch) 1 ea TRDERM Q72H COUNTS INCLUDE 234 BEDS AT THE [facility] Last Admin: 07/30/20 20:09 Dose: 1 ea Documented by: Morphine Sulfate (Morphine 2 Mg/Ml Syringe) 2 mg IVPUSH Q1H PRN PRN Reason: Other Last Admin: 07/30/20 09:51 Dose: 2 mg Documented by: Omeprazole (Omeprazole 20 Mg Cap.Cr) 40 mg PO DAILY COUNTS INCLUDE 234 BEDS AT THE [facility] Last Admin: 07/29/20 18:29 Dose: Not Given Documented by: Ondansetron HCl (Ondansetron 4 Mg/2 Ml Sdv) 4 mg IVPUSH ONETIME ONE Stop: 07/29/20 10:59 Last Admin: 07/29/20 11:17 Dose: 4 mg Documented by: Ondansetron HCl (Ondansetron 4 Mg Tab.Dis) 4 mg PO Q4H PRN PRN Reason: Nausea/Vomiting Oxycodone HCl (Oxycodone 5 Mg Tab) 5 mg PO Q4H PRN PRN Reason: Pain Pantoprazole Sodium (Pantoprazole 40 Mg Vial) 40 mg IVPUSH DAILY@1800 COUNTS INCLUDE 234 BEDS AT THE [facility] Last Admin: 07/30/20 17:26 Dose: 40 mg Documented by: Polyethylene Glycol (Polyethylene Glycol 3350 Powder 17 Gm Packet) 17 gm PEGTUBE DAILY COUNTS INCLUDE 234 BEDS AT THE [facility] Last Admin: 07/31/20 08:57 Dose: 17 gm Documented by: Sertraline HCl (Sertraline 50 Mg Tab) 100 mg PO BEDTIME COUNTS INCLUDE 234 BEDS AT THE [facility] Last Admin: 07/30/20 20:14 Dose: 100 mg Documented by: Sodium Chloride (Sodium Chloride 0.9% 10 Ml Syringe) 10 ml FLUSH ASDIRECTED PRN PRN Reason: Keep Vein Open Terazosin HCl (Terazosin 5 Mg Cap) 5 mg PEGTUBE BID COUNTS INCLUDE 234 BEDS AT THE [facility] Last Admin: 07/31/20 10:04 Dose: 5 mg Documented by: Trazodone HCl (Trazodone 50 Mg Tab) 150 mg PO BEDTIME COUNTS INCLUDE 234 BEDS AT THE [facility] Trazodone HCl (Trazodone 50 Mg Tab) 200 mg PO BEDTIME COUNTS INCLUDE 234 BEDS AT THE [facility] Last Admin: 07/30/20 20:16 Dose: 200 mg Documented by: Valacyclovir HCl (Valacyclovir 1,000 Mg Tab) 1,000 mg PO DAILY COUNTS INCLUDE 234 BEDS AT [facility]
== END 2020-07-31 14:30 | DRG 871 ==
LOC: JD.ED 08:17 → JD.ICU 13:14
PROVIDERS: ADMIT Hospitalist; ATTEND Hospitalist
DX: A41.9 Sepsis, unspecified organism (principal); J18.9 Pneumonia, unspecified organism; R09.02 Hypoxemia; R65.21 Severe sepsis with septic shock; J96.01 Acute respiratory failure with hypoxia; J96.02 Acute respiratory failure with hypercapnia; J69.0 Pneumonitis due to inhalation of food and vomit; G23.1 Progressive supranuclear ophthalmoplegia [Steele-Richardson-Olszewski]; G12.29 Other motor neuron disease; G20 Parkinson's disease; Z66 Do not resuscitate; Z51.5 Encounter for palliative care; R13.10 Dysphagia, unspecified; Z96.0 Presence of urogenital implants; F41.9 Anxiety disorder, unspecified; F32.9 Major depressive disorder, single episode, unspecified; G47.00 Insomnia, unspecified; N40.1 Benign prostatic hyperplasia with lower urinary tract symptoms; R33.9 Retention of urine, unspecified; Z87.01 Personal history of pneumonia (recurrent); K59.09 Other constipation; K21.9 Gastro-esophageal reflux disease without esophagitis; M19.90 Unspecified osteoarthritis, unspecified site; M54.9 Dorsalgia, unspecified; G89.29 Other chronic pain; K44.9 Diaphragmatic hernia without obstruction or gangrene; E78.00 Pure hypercholesterolemia, unspecified; I10 Essential (primary) hypertension; H54.7 Unspecified visual loss; G47.30 Sleep apnea, unspecified; Z86.19 Personal history of other infectious and parasitic diseases; Z87.440 Personal history of urinary (tract) infections; Z86.14 Personal history of Methicillin resistant Staphylococcus aureus infection; Z79.899 Other long term (current) drug therapy; Z79.52 Long term (current) use of systemic steroids; Z20.822 Contact with and (suspected) exposure to COVID-19
CPT/HCPCS: 36415; 36600; 51702; 71045; 71045-26; 80048; 80053; 81003; 82803; 83605; 85007; 85025; 85027; 85610; 86140; 87040; 94660; 96365; 96366; 96367; 96375; 99285; 99285-25; A9270-GY; C9113; J0696; J1650; J2060; J2270; J2405; J2543; J3370; J7030; J7042; J7050; U0002